=== PATIENT | female | born 1935 | race Caucasian/White ===

== ENCOUNTER 2018-11-29 06:40 | Inpatient (IN) | payer MEDICARE, SELFPAY ==
[2018-11-22 11:17] VITALS: BP 121/61; PULSE 64; RESP 17; TEMP 36.5; O2SAT 100; BMI 18.1
[2018-11-22 12:51] LABS: Hematocrit 36.9 % (37-47); Hemoglobin 11.3 g/dL (12.0-15.0); Mean Corp Hgb Conc 30.6 g/dL (32-36); Mean Corpuscular Hgb 28.6 pg (27.0-32.0); Mean Corpuscular Volume 93.4 fL (81-99); Platelet Count 373 K/mm3 (150-450); RBC Distribution Width CV 12.9 % (11.6-14.6); RBC Distribution Width SD 44.3 fl (35.1-43.9); Red Blood Count 3.95 M/mm3 (4.2-5.4); White Blood Count 5.7 K/mm3 (4.4-11.0)
[2018-11-22 12:58] LABS: Prothrombin Time (Protime)PT. 13.2 SECONDS (11.7-14.9)
[2018-11-22 12:59] LABS: Partial Thromboplast Time 29.4 Seconds (24.1-36.2)
[2018-11-22 13:21] LABS: AST(SGOT) 17 U/L (15-37); Alanine Aminotransfer ALT/SGPT 21 U/L (13-56); Albumin, Serum 3.6 g/dL (3.2-5.0); Alkaline Phosphatase 134 U/L (45-117); Anion Gap 4 (5-15); BUN 11 mg/dL (7-18); BUN/Creat Ratio 18.8 RATIO (10-20); Calcium,Total 9.3 mg/dL (8.5-10.1); Chloride 108 mmol/L (98-107); Creatinine, Serum 0.59 mg/dL (0.55-1.02); EST Glomerular Filtration Rate 105 mL/min (>60); Est Glom Filt Rate - Afr Amer 127 mL/min (>60); Estimated Creatinine Clearance 31.38 ml/min; Glucose 81 mg/dL (74-106); Potassium 3.7 mmol/L (3.5-5.1); Protein, Total 7.6 g/dL (6.4-8.2); Sodium Level 139 mmol/L (136-145)
[2018-11-23 09:21] LABS: Absolute Lymphocyte Count 1.74 X10^3/uL (0.83-4.51); Absolute Neutrophil Count 3.4 X10^3/uL (2.0-7.7); Basophil# 0.05 X10^3/uL; Basophil% 0.9 % (0-1); Eosinophil# 0.07 X10^3/uL; Eosinophils% 1.2 % (0-5); Lymphocyte # 1.74 X10^3/ul (4.0); Monocyte# 0.55 X10^3/uL; Monocyte% 9.5 % (0-10); NRBC Flagged by Analyzer 0 % (0-5); Neutrophil # 3.38 X10^3/uL (2.7-7.7); Neutrophil % 58.2 % (47-70)
[2018-11-29] VITALS (11 sets, daily range): BP systolic 104–122; BP diastolic 54–68; PULSE 65–77; RESP 16–116; TEMP 36.1–36.9; O2SAT 92–100; BMI 17.5; BMI 20.1
--- NOTE | 2018-11-29 06:58 | RAD_ITS ---
STUDY: X-RAY - PELVIS AND RIGHT HIP REASON FOR EXAM: Female, 82 years old. Right hip replacement. TECHNIQUE: 2 views of the pelvis and hip. COMPARISON: Comparison is made with prior examination done earlier today. FINDINGS: The patient is status post right total hip replacement. There is good alignment. Postoperative soft tissue changes. RAD/Hip Min 2 Views (Portable) IMPRESSION: Status post right total hip replacement. There is good alignment. Soft tissue changes. Electronically Signed: Asher Meng, at 14:28 EDT , Service support ,
[2018-11-29] MEDS: Magnesium Sulfate 4gm/100mL 4 GM/100 ML IV.SOLN. IV (07:31)
[2018-11-29] MEDS: Acetaminophen 500 MG Tablet 1000 MG PO ×3 (07:32→21:47)
[2018-11-29] MEDS: Celecoxib 200 MG Capsule 400 MG PO (07:32)
[2018-11-29] MEDS: Gabapentin 600 MG Tablet PO (07:32)
[2018-11-29] MEDS: Lactated Ringers 1,000 ML 90 ML IV ×2 (07:34→12:16)
[2018-11-29] MEDS: Scopolamine 1mg/72hr Patch 1 PATCH TD (07:55)
[2018-11-29] MEDS: Lactated Ringers 1,000 ML 999 ML IV (07:55)
[2018-11-29 08:45] LABS: Bedside Glucose 87 mg/dL (70-110)
[2018-11-29] MEDS: Cefazolin 2 GM in 0.9% Normal Saline 100 ML IV (08:52)
--- NOTE | 2018-11-29 09:15 | HIP_PTH ---
PATIENT: MANFRED HILL LOC: MS3 U#:[id number] AGE/SX: 82/F ROOM: NM313 RE11/29/[address]: Dr. Efraín Pollard MD : [id number] BED: 1 DIS: 11/30/2018 SPEC #: [id number] RECD: 11/29/18 11:55 STATUS: RIANNA GOTTI #: [id number] JONATHAN: 11/29/18 09:[address]: Efraín Pollard DEPT: SURGICAL PATHOLOGY RECD BY: Dany Woods ENTERED: 11/29/18 12:04 SP TYPE: TOTAL HIP OTHR DR: Dr. Jennifer Klein MD Tissues: Hip, NOS Procedures: Decalcification bone/plaque Surgery Specimen Level IV HEADER OPERATION: Total hip anterior approach PRE-OP DIAGNOSIS: Idiopathic aseptic necrosis right femur TISSUE SUBMITTED: Femoral head MICROSCOPIC DIAGNOSIS Femoral head, excision: Consistent with changes of severe degenerative joint disease. AM:[place] 12/05/18 MICROSCOPIC DESCRIPTION Slides are reviewed. GROSS DESCRIPTION Received is one container labeled with the patient's name and designated femoral head. The specimen consists of a slightly deformed femoral head measuring 5 x 4.5 x 4 cm. The area of rubbery, circular defect measures 3.5 cm in dimension. The articular surface is focally eburnated and shows bone erosion. Also present in the specimen container are multiple irregular fragments of bone reamings aggregating to 6 x 3 x 1 cm. Character Artist sections are submitted in two cassettes after decalcification. / AM:[place] 11/29/18 TC:5 CPT: 46025, 55871
--- NOTE | 2018-11-29 09:25 | RAD_ITS ---
STUDY: X-RAY - PELVIS AND RIGHT HIP REASON FOR EXAM: Female, 82 years old. Right hip replacement. TECHNIQUE: 1 views of the pelvis and hip. COMPARISON: None. FINDINGS: The patient is status post right total hip replacement. There is good alignment. RAD/Hip 1 view with Pelvis IMPRESSION: Status post right total hip replacement. There is good alignment. Electronically Signed: Asher Meng, at 13:23 EDT , Service support ,
--- NOTE | 2018-11-29 10:13 | OP.PCM_ITS ---
Report of Operation Date of Procedure: 11/29/18 Pre-Operative Diagnosis: Right hip avascular necrosis Post-Operative Diagnosis: Right hip avascular necrosis Surgery/Procedure Performed:: Right direct anterior minimally invasive total hip replacement Description of Surgical Findings:: Stable hip, equal leg lengths, cemented stem. Gross visualization of the head upon removal did show subchondral fracturing in the femoral head embedded firmware engineer: Ant England Type of Anesthesia:: Spinal Anesthesiologist: Jasiel Méndez Special Medications: 2 g Ancef, 1 g TXA at incision, 1 g TXA closure, 10 mg Decadron, joint cocktail (5 mg Duramorph, 30 mL of 0.5% Ropivicaine, 1000 units of epinephrine, 30 mg of Toradol) Specimen's removed: Bony cuts, femoral head was sent to pathology Estimated Blood Loss (mL): 100 Fluids Replaced: 1200 mL crystalloid Description of Procedure: Components used: 1. [place] Joseph femoral stem size 37.5 mm, 2 2. Joseph trident 2 acetabular shell size 48 mm 3. [place] X3 polyethylene d 4. Joseph Biolox delta 36mm, -2.5mm femoral head Brief history operative indications: 82 yo F who failed conservative measures for their hip osteoarthritis. X-rays were consistent with osteoarthritis including joint space narrowing, osteophyte formation and subchondral cysts. Total hip replacement was discussed with the patient with risks and benefits including but not limited to blood loss, DVTs, PEs, neurovascular damage, dislocation, general risks of anesthesia including loss of life. Patient demonstrated an understanding medical clearance is obtained the patient was consented for surgery. Procedure: On the date of procedure the patient's R hip was marked in the preoperative area. Patient was then taken back to the operating room where anesthesia assumed control of the C-spine and airway and administered anesthetic. Patient was transferred to the operating table and placed in the supine position. The hips were placed at the break of the bed and a sacral bump was placed. The R lower extremity was then prepped out in a sterile fashion using chlorhexidine while the surgeon scrubbed. The PA was vital in the positioning of the patient. Upon reentering the room the R lower extremity was draped in the standard orthopedic fashion and the incision was marked. A timeout was called and everyone agreed upon the side, the site, the procedure be performed, antibody given, and patient's identity. At this time incision was made through skin, subcutaneous tissue, and fat down to fascia. The fascia was then incised and the TFL was retracted laterally. A retractor was placed on the lateral border of the femoral neck. Attention was directed to the inferior portion of the approach and all crossing vessels were identified and appropriately coagulated. A retractor was then placed on the medial portion of the femoral neck. The anterior capsule was then cleared of all soft tissue and then H shaped capsulotomy was made. The retractors were then placed inside the capsule. The femoral neck was identified and a cleanup cut was made. At this time a power corkscrew was used to remove the femoral head. Attention was then turned toward the acetabulum where the soft tissues were appropriately retracted and the acetabulum was sequentially reamed to 48 mm. A 48 mm cup was then selected and impacted into place. Acetabular liner was impacted into place and locking mechanism was verified. The position of the acetabular cup was then verified under live fluoroscopy. Attention was then turned to the femur. Soft tissue releases on the medial and lateral femoral neck were appropriately done, the leg was externally rotated and lateralized. A Faith retractor was placed medially and proximally to the greater trochanter this allowed appropriate visualization and exposure of the femoral canal. Rongeour was then used to remove excess lateral bone. A canal finder and entry broach were used to open the proximal canal. Once we verified we were down the femoral canal we subsequently broached up to a size 2/37.5MM femur. The appropriate neck was placed in the previously selected head was trialed with a -2.5 mm neck. Traction was pulled and the hip was reduced with internal rotation. Once it was appropriately reduced and stability was checked. There was minimal shuck, equal leg lengths and appropriate stability with hyperextension and external rotation as well as with 90? flexion and internal rotation. Fluoroscopy was then also used to verify the position of the components and leg lengths using the contralateral side for comparison. The trial components were then dislocated the proximal femur was again exposed and the components were removed from the wound. The final stem was verified and opened. The wound was copiously irrigated out with normal saline. Proximal bone was prepped and a cement restrictor was placed. After the cement was mixed the canal was pressurized with cement and the stem was put into place. After the cement was allowed to cure we again trialed the hip and a -2.5 mm 36 mm head remained appropriate for stability and leg lengths. This was verified on live fluoroscopy as well as the stem position. Femoral head trial was again dislocated. Number head trial was removed final component was opened. Trunnion was cleaned and dried. The acetabulum was checked for any residual debris. The final components were placed and impacted. Traction and internal rotation were again used to reduce the hip. After adequate reduction the hip remained stable with appropriate leg lengths. The final components were once again checked with live fluoroscopy and were found to be satisfactory. The wound was then copiously irrigated with normal saline once more, and hemostasis was obtained. Closure was then done using #1 Vicryl runner to close the fascia. A 2-0 vicryl interuppted sutures were used to close the subcutaneous skin. A 3-0 Monocryl and Steri-Strips were used for final skin closure. A Silverlon dressing was placed. Patient was awakened by anesthesia and transferred to the [place]. Patient was then transferred to the PACU for recovery. Postoperative plan: Patient will get 24 hours postop antibiotics. Patient will get in-house physical therapy and will be weight-bear as tolerated. Patient will follow up in office in 2 weeks for a wound check and x-rays. Grafts/Implants Used: Joseph [place] stem - Complications No intraoperative complications - Admit VTE Documentation VTE Present on Admission: No VTE Mechan Device Prophylaxis: SCD's, Thigh High FLETCHER Hose VTE Pharm Prophylaxis ordered?: Yes
--- NOTE | 2018-11-29 11:06 | EKG12_ITS ---
Test Reason : Blood Pressure : / mmHG Vent. Rate : 074 BPM Atrial Rate : 074 BPM P-R Int : 172 ms QRS Dur : 154 ms QT Int : 468 ms P-R-T Axes : 074 -42 031 degrees QTc Int : 519 ms Normal sinus rhythm Left axis deviation Right bundle branch block Abnormal ECG Confirmed by SRIRAM MARTINEZ, CHARLEEN ([id number]), loan expeditor AMMON BERNABE ([id number]) on 12/04/2018 11:50:42 AM Referred By: Efraín Pollard Confirmed By:CHARLEEN BHATIA MD
[2018-11-29] MEDS: Ensure Surgery 237 ML LIQUID PO ×2 (14:10→16:49)
[2018-11-29] MEDS: Famotidine 20 MG Tablet PO (14:10)
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
[2018-11-29] MEDS: Prenatal Vits Tablet 1 TABLET PO (16:41)
[2018-11-29] MEDS: Aspirin 81 MG TAB.CHEW PO (16:42)
[2018-11-29] MEDS: Cefazolin 1 GM/50 ML BAG IV (16:48)
[2018-11-29] MEDS: traMADol 50 MG Tablet PO (19:52)
[2018-11-29] MEDS: Mirtazapine 15 MG Tablet 7.5 MG PO (21:47)
[2018-11-30] MEDS: Cefazolin 1 GM/50 ML BAG IV (01:10)
[2018-11-30] MEDS: Lactated Ringers 1,000 ML 90 ML IV (01:10)
[2018-11-30] MEDS: Morphine 2 MG/ML Syringe IV (01:15)
[2018-11-30 02:50] VITALS: BP 117/68; PULSE 64; RESP 18; TEMP 36.9; O2SAT 93
[2018-11-30 05:43] LABS: Hematocrit 27.2 % (37-47); Hemoglobin 8.7 g/dL (12.0-15.0); Mean Corpuscular Hgb 29.4 pg (27.0-32.0); Mean Corpuscular Volume 91.9 fL (81-99); Mean Platelet Vol. 8.9 fl (6.2-12.0); Platelet Count 273 K/mm3 (150-450); RBC Distribution Width CV 12.7 % (11.6-14.6); RBC Distribution Width SD 42.4 fl (35.1-43.9); Red Blood Count 2.96 M/mm3 (4.2-5.4); White Blood Count 11.7 K/mm3 (4.4-11.0)
[2018-11-30] MEDS: Acetaminophen 500 MG Tablet 1000 MG PO ×2 (05:58→14:40)
[2018-11-30 06:06] LABS: Anion Gap 6 (5-15); BUN 20 mg/dL (7-18); BUN/Creat Ratio 33.3 RATIO (10-20); Chloride 110 mmol/L (98-107); EST Glomerular Filtration Rate 102 mL/min (>60); Est Glom Filt Rate - Afr Amer 123 mL/min (>60); Estimated Creatinine Clearance 34.81 ml/min; Glucose 124 mg/dL (74-106); Potassium 3.5 mmol/L (3.5-5.1); Sodium Level 144 mmol/L (136-145)
[2018-11-30 08:50] VITALS: BP 121/67; PULSE 96; RESP 18; TEMP 36.6; O2SAT 93
[2018-11-30] MEDS: Cyanocobalamin 500 MCG Tablet 1000 MCG PO (08:58)
[2018-11-30] MEDS: Calcium Carb/Vitamin D 1 TABLET Tablet PO (08:58)
[2018-11-30] MEDS: Aspirin 81 MG TAB.CHEW PO (08:58)
[2018-11-30] MEDS: Famotidine 20 MG Tablet PO (08:59)
[2018-11-30] MEDS: Senna/Docusate Sodium 1 Tablet 2 TABLET PO (08:59)
[2018-11-30] MEDS: traMADol 50 MG Tablet PO ×2 (09:03→14:57)
[2018-11-30] MEDS: Ensure Surgery 237 ML LIQUID PO ×2 (09:08→12:07)
--- NOTE | 2018-11-30 10:47 | PCM.PN.HOSP ---
Subjective: Patient was seen and examined. She underwent right direct anterior minimally invasive total hip replacement. Her pain is fairly controlled. Denied any dizziness or shortness of breath. Vitals/I&O's: Vital Signs Temp Pulse Resp BP Pulse Ox 97.9 F 96 18 121/67 H 93 11/30/18 08:50 11/30/18 08:50 11/30/18 08:50 11/30/18 08:50 11/30/18 08:50 Oxygen Flow Rate (L/min) 6 Oxygen Delivery Method Room Air Weight: 49.98 kg Body Mass Index (BMI) 20.1 Intake and Output for Last 24 Hours 11/28/18 11/29/18 11/30/18 23:59 23:59 23:59 Intake Total 2903 / 3403 1050 / 1050 Balance 2903 / 3403 1050 / 1050 General: Alert, Oriented x3, Cooperative, No apparent distress HEENT: Atraumatic, PERRLA, EOMI, Normocephalic Oral: Moist Mucosa Neck: Supple Lungs: Clear to auscultation, Normal air movement Cardiovascular: Regular rate, Regular Rhythm, Normal S1, Normal S2, No murmurs Abdomen: Bowel Sounds Present, Soft, Non Tender, Non-Distended, No Hepato-splenomegaly Extremities: No edema Skin: No rashes, No breakdown Musculoskeletal: No Tenderness to Palpation of Joints or Extremities Lymphatic: No Cervical, Supraclavicular, or Inguinal Adenopathy Neurological: Cranial nerves II-XII grossly intact, Neuro grossly intact Psych/Mental Status: Normal Affect, Appropriate Laboratory Results 11/30/18 05:20: WBC 11.7 H, RBC 2.96 L, Hgb 8.7 L, Hct 27.2 L, MCV 91.9, MCH 29.4, MCHC 32.0, RDW Std Deviation 42.4, RDW Coeff of Devyn 12.7, Plt Count 273, MPV 8.9 11/30/18 05:20: Sodium 144, Potassium 3.5, Chloride 110 H, Carbon Dioxide 28.0, Anion Gap 6, BUN 20 H, Creatinine 0.60, Estim Creat Clear Calc 34.81, Est GFR (MDRD) Af Amer 123, Est GFR (MDRD) Non-Af 102, BUN/Creatinine Ratio 33.3 H, Glucose 124 H, Calcium 8.0 L Current Medications Acetaminophen (Tylenol) 1,000 mg PO Q8 [facility] Last Admin: 11/30/18 05:58 Dose: 1,000 mg Documented by: Aspir[facility] ([facility], Baby) [facility] Last Admin: 11/30/18 08:58 Dose: 81 mg Documented by: Calcium/Vitamin D (Os-Edu 500mg + D) [facility] tablet [facility] Last Admin: 11/30/18 08:58 Dose: 1 tablet Documented by: Cholecalciferol (Vitamin D) 1,000 unit [facility] Last Admin: 11/30/18 08:59 Dose: 1,000 unit Documented by: Cyanocobalamin (Vitamin B12) 1,000 mcg [facility] Last Admin: 11/30/18 08:58 Dose: 1,000 mcg Documented by: Enteral Nutritional Formula (Ensure Surgery) 237 ml PO TIDCM [facility] Last Admin: 11/30/18 09:08 Dose: 237 ml Documented by: Famotidine (Pepcid) 20 mg PO DAILY [facility] Last Admin: 11/30/18 08:59 Dose: 20 mg Documented by: Lactated Ringer's () 1,000 mls @ 90 mls/hr IV .Q11H7M [facility] Last Admin: 11/30/18 01:10 Dose: 90 mls/hr Documented by: Insulin Human Lispro (Humalog Powerpen (Bkc)) 1 - 6 unit SC Q4H PRN PRN; Protocol PRN Reason: BG>/= 180, SEE PROTOCOL Mirtazapine (Remeron) 7.5 mg PO QHS [facility] Last Admin: 11/29/18 21:47 Dose: 7.5 mg Documented by: Morphine Sulfate () 2 - 4 mg IV Q2H PRN PRN PRN Reason: MOD-SEVERE PAIN (4-10/10) Last Admin: 11/30/18 01:15 Dose: 2 mg Documented by: Ondansetron HCl (Zofran) 4 mg IV Q8H PRN PRN PRN Reason: NAUSEA Multivit/Folic Acid/Iron (Prenatabs Fa) 1 tablet PO DAILY@1200 [facility] Last Admin: 11/29/18 16:41 Dose: 1 tablet Documented by: Promethazine HCl (Phenergan) 12.5 mg IM Q6H PRN PRN; Protocol PRN Reason: NAUSEA/VOMITING Senna/Docusate Sodium (Senokot-S, Tatiana-Colace) 2 tablet PO BID [facility] Last Admin: 11/30/18 08:59 Dose: 2 tablet Documented by: Sodium Chloride () 10 - 40 ml IV UD PRN PRN Reason: SALINE FLUSH Tramadol HCl (Ultram) 50 - 100 mg PO Q6H PRN PRN PRN Reason: MOD-SEVERE PAIN (4-10/10) Last Admin: 11/30/18 09:03 Dose: 50 mg Documented by: Medical Necessity - Tobacco Use Smoking Status: Former smoker - Patient quit cigarette tobacco usage in the 1970s but notes that she smoked very minimal. Tobacco Use: Non-smoker Assessment/Plan 82-year-old female with past medical history of severe protein calorie malnutrition, osteoarthritis, who comes in for elective right anterior total hip replacement for right hip avascular necrosis. 1. Postop day #1 status post right direct anterior minimal total hip replacement, pain is controlled Patient is being discharged 2. Severe protein calorie malnutrition, BMI 20.2, on nutritional supplements 3. Possible anxiety/depression, started on Remeron 4. GERD, on famotidine 5. DVT PPx- aspirin 81mg BID Okay with patient being medically discharged. She will be followed up with home health team Code Visit Inpatient E&M: [id number] Subs Hosp L2
--- NOTE | 2018-11-30 10:48 | PCM.PN.ORT ---
Patient Problems: Active and Suspected Problems Anxiety and depression (Suspected) Subjective: The patient was sitting in bedside chair upon examination. Patient denies any chest pain, shortness of breath, dizziness, lightheadedness, nausea or vomiting, or calf pain. Pain is controlled on medications. No adverse overnight events. Patient has tolerated physical therapy very well. Her pain is controlled. She does complain of some anterior thigh pain but this is normal for the procedure she underwent. Medicine has been consulted as well as consult for dietitian. Patient was started on Remeron. Plan will be for discharge home with home health physical therapy Objective: Vital signs stable and afebrile. Patient is able to plantarflex and dorsiflex actively. Sensation is intact to light touch to saphenous, sural, superficial and deep peroneal, and tibial distribution. Dressing overall is clean dry and intact with minimal discharge over the lateral aspect of the dressing. Negative Homans bilaterally, negative signs and symptoms of DVT. - Physical Exam General: Alert, Oriented x3, Cooperative, No apparent distress Vital Signs Temp Pulse Resp BP Pulse Ox 97.9 F 96 18 121/67 H 93 11/30/18 08:50 11/30/18 08:50 11/30/18 08:50 11/30/18 08:50 11/30/18 08:50 Oxygen Flow Rate (L/min) 6 Oxygen Delivery Method Room Air Weight: 49.98 kg Body Mass Index (BMI) 20.1 Intake and Output for Last 24 Hours 11/28/18 11/29/18 11/30/18 23:59 23:59 23:59 Intake Total 2903 / 3403 1050 / 1050 Balance 2903 / 3403 1050 / 1050 Laboratory Tests Past 24 Hrs 11/30/18 11/30/18 05:20 05:20 WBC 11.7 H RBC 2.96 L Hgb 8.7 L Hct 27.2 L MCV 91.9 MCH 29.4 MCHC 32.0 RDW Std Deviation 42.4 RDW Coeff of Devyn 12.7 Plt Count 273 MPV 8.9 Sodium 144 Potassium 3.5 Chloride 110 H Carbon Dioxide 28.0 Anion Gap 6 BUN 20 H Creatinine 0.60 Estim Creat Clear Calc 34.81 Est GFR (MDRD) Af Amer 123 Est GFR (MDRD) Non-Af 102 BUN/Creatinine Ratio 33.3 H Glucose 124 H Calcium 8.0 L Medical Necessity - Tobacco Use Smoking Status: Former smoker - Patient quit cigarette tobacco usage in the 1970s but notes that she smoked very minimal. Tobacco Use: Non-smoker Assessment/Plan 1. S/P direct anterior right total hip arthroplasty POD #1 2. Continue Pain Medications: Tylenol and tramadol 3. DVT Prophylaxis: Aspirin 81 mg twice daily for DVT prophylaxis for 4 weeks 4. PT/OT: Weightbearing as tolerated, patient has tolerated physical therapy in the hospital very well 5. H & H: 8.7/27.2, asymptomatic 6. Encouraged Incentive Spirometry 7. Continue postoperative medical management per medicine: Case was discussed with hospitalist, plan will be for Remeron for 1 month due to her malnutrition. Dietitian is also consulted, appreciate input. 8. Disposition: Orthopedically stable, plan will be for discharge home today with home health physical therapy as long as medically stable. If medicine is okay for discharge today, patient can be discharged per orthopedic standpoint. Patient will need to schedule follow-up with primary care physician postoperatively. Patient will follow-up per postop instructions.
--- NOTE | 2018-11-30 11:00 | CASEMGMT ---
Addendum entered by Rosalind Ahmadi 11/30/18 14:24: Dietary stated miller for a case (24 ct) of Ensure Surgery Liquid is $40.80 and can be purchased through the cafeteria. Pt and family made aware Enteral supply companies are not able to provide Ensure Surgery Liquid or be billed through insurance at this time and made aware of cost through [facility] cafeteria. They are agreeable to this miller and purchasing through [facility] cafeteria. Daughter and left at this time to buy now. Addendum entered by Rosalind Ahmadi 11/30/18 13:55: Call placed to [facility]. They state they do not have a contract with [facility] in [place]. Addendum entered by Rosalind Ahmadi 11/30/18 13:44: received from [facility] stating they are not able to accept oral enteral therapy at this time. Original Note: RN CM PBX TEACHER CM to room to meet with patient for initial transition planning/care coordination assessment. CHANTELL ROSS introduced self and role at [facility]. Pt voices understanding and consents to assessment at this time. Pt resting in bed in no distress at this time. at bedside. DaughterJoi came in to room during assessment as well. Pt is A/O at this time and answers all questions appropriately. Care providers, pharmacy, and demographics verified/updated at this time. PCP: Dr Jennifer Klein Specialists: Dr Pollard Preferred [facility]acy: [facility] Insurance: [facility] Prescription Benefit: Yes Living Will/HPOA: [facility] does not have LW or HCPOA .Would like to talk to IVONNE to complete paperwork. IVONNE, Isabel, made aware. Given info on AD and she was made aware if SW is not able to see her today before she is discharged that she can utilize [facility] social work for advanced directive completion as an out-pt. Given Nutrition Program Instructor Rac card with information and contact number. Pt expresses understanding. LNOK: Living Arrangements: Lives with in a one-story home w/basement where laundry is. does the laundry and can assist pt w/ADL's and home mgmt tasks while pt is recovering. Transportation: Pt states she did drive some prior to surgery. drives and states no transportation concerns at this time. DME: [facility] has the following DME: cane, walker. States wants to get a shower chair and nick setter. They were made aware pt's insurance does not cover for these. states they are planning on getting at a local drug store or [employer]. HHC/SNF: No history of either. Pt is interested in HHC. Given list of HHC agencies in [facility] that are in-network with [facility]. Pt and 's 1st choice was [facility] and 2nd choice was [facility]. Call placed to [facility] and spoke to Dinorah. She states they are not able to accept pt at this time. Call placed to [facility] and spoke to Saadia. She states they are able to accept pt and start of care will be by Saturday 12/02. Pt, , and daughter all made aware. Referral packet has been faxed to [facility]. Pt has been given script for Ensure Liquid. Pt and family have no preference of supply company and agreeable to CS. Script and referral info faxed to [facility] at this time. Call placed to [facility] and they confirmed they received the script and information. Awaiting call back for insurance approval. [facility]: PH: Fax: Pt wishes to return home and states has no concerns with going home at time of discharge. CM to follow for discharge planning/needs. Pt and voice no further concerns/needs at this time. Advised pt and family to ask for CM if any further questions/concerns/needs arise. Voices understanding. PLAN: Home w/HHC, spousal support, and discharge plans in place. Charisse DE LA FUENTEN RN CM
--- NOTE | 2018-11-30 11:00 | DCINST_ITS ---
Discharge Diet: No Restrictions Discharge Activity: May Not Drive - while taking narcotic pain medications. May shower in (days): 1 - only if incision is dry and without drainage. Do NOT soak/submerge in tub/pool/chavez/stream/hot tub. Ice area for (Minutes): 20 - Every 1-2 hours while awake Weight Bearing Status: Weight bearing as tolerated Elevate: Operative Extremity Additional Activity Instructions:: Wear elastic stockings for 2 weeks. DO NOT use alcohol with narcotic pain medication. DO NOT make important decisions while taking narcotic medication. If you have problems with taking your medication (rash, itching, nausea, etc.) call the office at once. Call your doctor if your incision/area has: Increased Pain/ Swelling, Increased Redness, Foul Smelling Discharge Call your doctor if you observe: Fever of 101 or Higher Remove Dressing in (days):: 4 - Okay to remove dressing on December 04, 2018 Allergies/Adverse Reactions: Allergies bisacodyl [From Fleet Prep Kit #1] Allergy (Verified 11/22/18 11:10) Other PT CANT REMEMBER REACTION ciprofloxacin [From Cipro] Allergy (Verified 11/22/18 11:10) Rash ciprofloxacin HCl [From Cipro] Allergy (Verified 11/22/18 11:10) Rash estradiol Allergy (Verified 11/22/18 11:10) Other PT CANT REMEMBER REACTION estrogens, conjugated [From Premarin] Allergy (Verified 11/22/18 11:10) Other PT CANT REMEMBER REACTION hydroxyzine Allergy (Verified 11/22/18 11:10) Other PT CANT REMEMBER REACTION levonorgestrel [From Climara Pro] Allergy (Verified 11/22/18 11:10) Other NSAIDS (Non-Steroidal Anti-Inflamma Allergy (Verified 11/22/18 11:10) Other PT CANT REMEMBER REACTION Penicillins Allergy (Verified 11/22/18 11:10) Swelling procaine HCl [From Novocain] Allergy (Verified 11/22/18 11:10) Other PT CANT REMEMBER REACTION sodium phosphate,monobasic-dibasic [From Fleet Prep Kit #1] Allergy (Verified 11/22/18 11:10) Other PT CANT REMEMBER REACTION Sulfa (Sulfonamide Antibiotics) Allergy (Verified 11/22/18 11:10) Swelling Medications to take at Discharge Calcium Carbonate/Vitamin D3 [Caltrate 600 Plus D3 Tablet] 1 ea PO DAILY 11/22/18 Cholecalciferol (VIT D3) [Vitamin D3] 1,000 unit PO DAILY 11/22/18 Cyanocobalamin (Vitamin B-12) [Vitamin B-12] 1,000 mcg PO DAILY 11/22/18 Pnv No.95/Ferrous Fum/Folic AC [ Caplet] 1 ea PO DAILY 11/22/18 Acetaminophen [Tylenol] 1,000 mg PO Q8 #100 tab 11/30/18 Aspirin [Aspirin, Baby] 81 mg PO BIDCM tab.chew 11/30/18 Ensure Surgery 237 ml PO TIDCM liquid 11/30/18 Mirtazapine [Remeron] 7.5 mg PO QHS #30 tab 11/30/18 Senna/Docusate Sodium [Senokot-S] 2 tab PO BID #20 tab 11/30/18 traMADol [Ultram] 50 - 100 mg PO Q6H PRN PRN 4 Days #32 tab 11/30/18 The following prescriptions were given: Mirtazapine [Remeron] 7.5 mg PO QHS #30 tab Transmission Status: [facility] to [facility] Senna/Docusate Sodium [Senokot-S] 2 tab PO BID #20 tab Transmission Status: Pending to [facility] Acetaminophen [Tylenol] 1,000 mg PO Q8 #100 tab Transmission Status: Pending to [facility] traMADol [Ultram] 50 - 100 mg PO Q6H PRN PRN 4 Days #32 tab PRN Reason: Mod-Severe Pain (4-12/21) Transmission Status: Received by [facility] Primary Care Physician: Jennifer Klein MD [Primary Care Provider] - Please follow up with your Primary Care Physician in: follow up in 2 weeks with PCP Test Results: Test results from this visit will be discussed in further detail at your follow- up appointment, if applicable. Please Follow Up With: Rigo Steiner PA-C When: 12/14/18 @ 2:00 pm
[2018-11-30] MEDS: Prenatal Vits Tablet 1 TABLET PO (12:07)
[2018-11-30 15:08] VITALS: BP 113/64; PULSE 77; RESP 18; TEMP 37.2; O2SAT 98
== END 2018-11-30 15:15 | disposition home health service (06) | DRG 469 ==
LOC: ACINP 06:44 → MS3 08:54
PROVIDERS: Anesthesiology; Admitting Provider Specialist; Family Provider Internal Medicine; PCP Internal Medicine; Referring Provider Specialist; Visit Provider Specialist
PROC: 0SR9049 Replacement of Right Hip Joint with Ceramic on Polyethylene Synthetic Substitute, Cemented, Open Approach (ICD-10-PCS; CPT 27284; principal; 2018-11-29 08:50)
DX: M87.051 Idiopathic aseptic necrosis of right femur (principal); E43 Unspecified severe protein-calorie malnutrition; M16.10 Unilateral primary osteoarthritis, unspecified hip; K21.9 Gastro-esophageal reflux disease without esophagitis; I10 Essential (primary) hypertension; R19.7 Diarrhea, unspecified; Z87.891 Personal history of nicotine dependence; M81.0 Age-related osteoporosis without current pathological fracture; K57.30 Diverticulosis of large intestine without perforation or abscess without bleeding; Z91.410 Personal history of adult physical and sexual abuse; Z96.641 Presence of right artificial hip joint; Z90.710 Acquired absence of both cervix and uterus; Z79.82 Long term (current) use of aspirin; F32.9 Major depressive disorder, single episode, unspecified; F41.9 Anxiety disorder, unspecified; Z68.20 Body mass index [BMI] 20.0-20.9, adult
CPT/HCPCS: 36415; 73501; 73502; 76000; 80048; 80076; 82962; 85025; 85027; 85610; 85730; 87077; 87081; 88305; 88311; 93005; 97110; 97116; 97162; 97166; 97530; 97802; 99251; C1776; J7120; G0463

== ENCOUNTER 2019-09-07 15:36 | Emergency (ER) | payer MEDICARE, SELFPAY ==
[2018-11-29 12:07] VITALS: BMI 20.1
[2019-09-07 15:39] VITALS: BP 104/75; PULSE 76; RESP 18; TEMP 36.9; O2SAT 98; BMI 20.7
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
[2019-09-07 19:04] VITALS: BP 110/79; PULSE 88; RESP 16; O2SAT 99
== END 2019-09-07 19:05 | disposition home or self-care (01) ==
PROVIDERS: Emergency Provider Emergency Medicine; PCP Internal Medicine
DX: S16.1XXA Strain of muscle, fascia and tendon at neck level, initial encounter (principal); S20.219A Contusion of unspecified front wall of thorax, initial encounter; V43.52XA Car driver injured in collision with other type car in traffic accident, initial encounter; Y92.410 Unspecified street and highway as the place of occurrence of the external cause
CPT/HCPCS: 71111; 72040; 99284

== ENCOUNTER → 2019-11-14 16:35 | Outpatient (CLI) | payer MEDICARE, SELFPAY ==
[2019-11-14 15:41] VITALS: BMI 19.6
--- NOTE | 2019-11-14 16:46 | RAD_ITS ---
STUDY: X-RAY CHEST REASON FOR EXAM: Female, 83 years old. CAD TECHNIQUE: Frontal and lateral views COMPARISON: 09/20/2012 FINDINGS: The lungs are clear and expanded. There is no demonstrated pleural abnormality. Normal size heart. Normal mediastinum and marvin. Normal visualized pulmonary arteries. Normal visualized aortic arch and descending thoracic aorta. Normal visualized thoracic spine. Probable wedge compression of L1. Normal visualized ribs, clavicles, and shoulders. There is no demonstrated abnormality of the visualized soft tissue structures of the upper abdomen. RAD/Chest PA and Lateral IMPRESSION: No acute pulmonary pathology of the chest. Mild wedge compression of probable L1. Electronically Signed: Darren Robledo DO at 18:15 EDT Tel [phone], Service support ,
[2019-11-14 17:22] LABS: Anion Gap 4 (5-15); BUN 18 mg/dL (7-18); BUN/Creat Ratio 30.6 RATIO (10-20); Calcium,Total 9.5 mg/dL (8.5-10.1); Chloride 109 mmol/L (98-107); Creatinine, Serum 0.59 mg/dL (0.55-1.02); EST Glomerular Filtration Rate 104 mL/min (>60); Est Glom Filt Rate - Afr Amer 126 mL/min (>60); Glucose 87 mg/dL (74-106); Potassium 3.8 mmol/L (3.5-5.1); Sodium Level 141 mmol/L (136-145)
[2019-11-14 17:24] LABS: Absolute Lymphocyte Count 2.39 X10^3/uL (0.83-4.51); Absolute Neutrophil Count 4.2 X10^3/uL (2.0-7.7); Basophil# 0.04 X10^3/uL; Basophil% 0.5 % (0-1); Eosinophil# 0.07 X10^3/uL; Eosinophils% 0.9 % (0-5); Hematocrit 39.3 % (37-47); Hemoglobin 12.3 g/dL (12.0-15.0); Lymphocyte # 2.39 X10^3/ul (4.0); Lymphocyte % 32.3 % (19-41); Mean Corp Hgb Conc 31.3 g/dL (32-36); Mean Corpuscular Hgb 29.3 pg (27.0-32.0); Mean Corpuscular Volume 93.6 fL (81-99); Mean Platelet Vol. 9.1 fl (6.2-12.0); Monocyte# 0.67 X10^3/uL; Monocyte% 9.1 % (0-10); NRBC Flagged by Analyzer 0 % (0-5); Neutrophil % 56.9 % (47-70); Platelet Count 400 K/mm3 (150-450); RBC Distribution Width CV 13.9 % (11.6-14.6); RBC Distribution Width SD 47.1 fl (35.1-43.9); White Blood Count 7.4 K/mm3 (4.4-11.0)
== END ==
PROVIDERS: PCP Internal Medicine; Referring Provider Internal Medicine Cardiovascular Disease; Visit Provider Internal Medicine Cardiovascular Disease
DX: I20.8 Other forms of angina pectoris (principal)
CPT/HCPCS: 36415; 71046; 80048; 85025

== ENCOUNTER 2019-11-16 07:35 | Day surgery (SDC) | payer MEDICARE, SELFPAY ==
[2019-11-14 15:41] VITALS: BMI 19.6
[2019-11-15 08:19] VITALS: BMI 19.6
--- NOTE | 2019-11-16 10:06 | CL.D_ITS ---
Patient Name: MANFRED HILL Study Date: 11/16/2019 Performing: Tom Lerma MD Ht: 61.02 inches 155 cm : 1935 Wt: 103.62 lbs 47 kg Age: 83 Gender: female BSA: 1.43 PROCEDURE(S) PERFORMED AP37-HGM/COR/LV CLINICAL PROFILE AND INDICATIONS Indications: Suspected CAD Heart Failure: None Stress/Imaging Stress/Image Study Performed: No CAD Presentations: Unstable angina. CONCLUSIONS Normal coronary arteries Normal LV size, wall motion,and systolic function RECOMMENDATIONS Medical therapy DESCRIPTION OF PROCEDURE The patient arrived to the procedure lab. The risks and benefits of the procedure as well as a full d escription of our services here and current unavailability of surgical backup were fully explained to the patient and/or their significant other prior to the catheterization. The Timeout was completed, verifying the correct patient and procedure. The patient's procedural site was prepped and draped in the usual fashion. Local anesthetic was given subcutaneously to right radial region with Lidocaine 2% . Local anesthetic was given subcutaneously to right groin region with Lidocaine 2%. Using a modified Seldinger technique, arterial access was obtained via the right radial artery, a 6Fr sheath was inse rted., arterial access was obtained via the right femoral artery, a 5Fr sheath was inserted. Left Co ronary Artery selective angiography was performed in multiple views using a 5 Fr. JL4 catheter. Right Coronary Artery selective angiography was then performed in multiple views using a 5 Fr. 3DRC (Gm) catheter. Left Ventriculography was performed in BRYAN projection using a 5 Fr. Pigtail catheter. LV to AO pullback pressures were then recorded.The arterial sheath was pulled and a TR Ban d was applied for hemostasis. The arterial sheath was pulled and manual compression applied until hem ostasis is achieved. CORONARY ANGIOGRAPHY DOMINANCE: Right Dominant LEFT HEART ASSESSMENT Left Ventricular Ejection Fraction: by LV Gram 65 % Normal LV wall motion Normal Left Ventricular systolic function Normal Left Ventricular systolic function LEFT MAIN: Angiographically normal LEFT ANTERIOR DESCENDING ARTERY: Angiographically normal CIRCUMFLEX ARTERY: Angiographically normal RIGHT CORONARY ARTERY: Angiographically normal COMPLICATIONS No Complications PROCEDURE MEDICATIONS Fentanyl 50 mcg IV Versed 1 mg IV Oxygen: 2 L/min via nasal cannula SUMMARY OF HEMODYNAMIC DATA Time AIR REST ECG 08:22:57 AO 110/59 (80) SA 09:39:28 AO 121/62 (85) 09:47:45 LV 127/19, 22 09:54:18 LV 129/20, 22 09:54:24 LV 115/19, 22 09:55:05 LVp 118/21, 21 09:55:11 AOp 122/55 (83) 09:55:16 Signed By Tom Lerma MD On 11/16/2019 10:05:21 AM Tom Lerma MD
== END 2019-11-16 15:20 | disposition home or self-care (01) ==
PROVIDERS: PCP Internal Medicine; Referring Provider Internal Medicine Cardiovascular Disease; Visit Provider Internal Medicine Cardiovascular Disease
DX: I20.8 Other forms of angina pectoris (principal); E43 Unspecified severe protein-calorie malnutrition; E56.9 Vitamin deficiency, unspecified; K21.9 Gastro-esophageal reflux disease without esophagitis; R06.00 Dyspnea, unspecified; R07.9 Chest pain, unspecified
CPT/HCPCS: 93458; 99152; 99153; J7040; Q9967; C1769; C1894

== ENCOUNTER → 2019-12-05 12:59 | Outpatient (CLI) | payer MEDICARE, SELFPAY ==
[2019-11-29 17:21] VITALS: BMI 19.6
--- NOTE | 2019-12-05 13:00 | CT_ITS ---
STUDY: CT CHEST WITHOUT CONTRAST REASON FOR EXAM: Female, 84 years old. UPPER LOBE ABNORMALITY RADIATION DOSAGE (If Supplied By Facility): CTDIvol = ( 8.64 ) mGy, DLP = ( 269.19 ) mGycm TECHNIQUE: Transaxial imaging was performed without the administration of intravenous contrast material. Multiplanar coronal and sagittal images were reformatted. Individualized dose optimization techniques were used for this CT. COMPARISON: None. FINDINGS: There is a 0.7 cm x 1.9 cm x 3.3 cm spiculated nodule in the anterior medial portion of the right upper lobe without evidence of scarring. This may represent a focal area of scarring and bronchiectasis. Mild degree of emphysematous changes worse in the upper lobes. There is no demonstrated pleural abnormality. There are calcifications of the coronary arteries. There are multiple small lymph nodes within the mediastinum, which are normal in size and morphology most compatible with reactive lymph hyperplasia. Normal hilar regions. Normal unenhanced pulmonary arteries. There is atherosclerotic calcification of the aortic arch with tortuosity and elongation of the aortic arch and descending thoracic aorta. Approximately 50% loss of height of the lower dorsal vertebrae. Prior surgery in the region of the gastroesophageal junction. Status post cholecystectomy. CT/Chest without Contrast IMPRESSION: Spiculated nodule in the right upper lobe as described. This is suggestive of a scarring. A repeat CT scan in 12 months is recommended. Electronically Signed: Asher Meng, at 13:53 EDT , Service support ,
== END ==
LOC: CT 13:00
PROVIDERS: PCP Internal Medicine; Referring Provider Internal Medicine; Visit Provider Internal Medicine
DX: R91.8 Other nonspecific abnormal finding of lung field (principal)
CPT/HCPCS: 71250

== ENCOUNTER → 2020-02-28 14:30 | Outpatient (CLI) | payer MEDICARE, SELFPAY ==
[2020-02-20 13:57] VITALS: BMI 19.8
--- NOTE | 2020-02-28 14:32 | CT_ITS ---
STUDY: CT CHEST WITHOUT CONTRAST REASON FOR EXAM: Female, 84 years old. LUNG NODULE FOLLOW UP, COMPARE TO PRIOR CT CHEST RADIATION DOSAGE (If Supplied By Facility): CTDIvol = ( 5.45 ) mGy, DLP = ( 153.74 ) mGycm TECHNIQUE: Transaxial imaging was performed without the administration of intravenous contrast material. Multiplanar coronal and sagittal images were reformatted. Individualized dose optimization techniques were used for this CT. COMPARISON: Comparison is made with prior study dated 12/05/2019. FINDINGS: 3.3 mm hypodense nodule in the lower pole of the left lobe of the thyroid. Since prior study, the spiculated irregular nodular density in the medial aspect of the right upper lobe has increased in size. It presently measures 2.2 cm by 1.1 cm. Correlation with a PET scan is recommended for further evaluation. There is no demonstrated pleural abnormality. There are calcifications of the coronary arteries. There are multiple small lymph nodes within the mediastinum, which are normal in size and morphology most compatible with reactive lymph hyperplasia. Normal hilar regions. Normal unenhanced pulmonary arteries. There is atherosclerotic calcification of the aortic arch with tortuosity and elongation of the aortic arch and descending thoracic aorta. 50% loss of height of lower dorsal vertebrae. Status post cholecystectomy and there gastric surgery. CT/Chest without Contrast IMPRESSION: Increased size of the spiculated irregular nodule in the medial aspect of the right upper lobe as described. A PET scan is recommended for further evaluation. Electronically Signed: Asher Meng, at 15:09 EST , Service support ,
== END ==
PROVIDERS: PCP Internal Medicine; Visit Provider Internal Medicine
DX: R91.1 Solitary pulmonary nodule (principal); R91.8 Other nonspecific abnormal finding of lung field
CPT/HCPCS: 71250

== ENCOUNTER → 2020-03-04 14:23 | Outpatient (CLI) | payer MEDICARE, SELFPAY ==
[2020-02-20 13:57] VITALS: BMI 19.8
--- NOTE | 2020-03-04 14:27 | US_ITS ---
STUDY: THYROID ULTRASOUND REASON FOR EXAM: Female, 84 years old. NODULE SEEN ON CT 02/28/20 TECHNIQUE: Ultrasound evaluation of the thyroid was performed with real-time and static carey-scale imaging. COMPARISON: CT scan 02/28/2020. FINDINGS: RIGHT LOBE: The right lobe of the thyroid gland measures 4.3 x 1.3 x 1.1 cm. There is a homogeneous echotexture. 2 nodules are seen on the right. One is hypoechoic and measures 4 mm greatest dimension. The other is isoechoic and measures 5 mm greatest dimension. LEFT LOBE: The left lobe of the thyroid gland measures 4.1 x 1.8 x 1.3 cm. There is a homogeneous echotexture. There is an 8 mm possibly cystic nodule. ISTHMUS: The isthmus measures 3 mm . The regional lymph nodes are normal. US/Thyroid IMPRESSION: Subcentimeter nodules as above. In a patient this age, typical recommendations are for no further evaluation or follow-up. Electronically Signed: Iker Blanc MD at 16:33 EST , Service support ,
== END ==
PROVIDERS: PCP Internal Medicine; Referring Provider Internal Medicine; Visit Provider Internal Medicine
DX: E04.1 Nontoxic single thyroid nodule (principal)
CPT/HCPCS: 76536

== ENCOUNTER → 2020-03-25 13:01 | Outpatient (CLI) | payer MEDICARE, SELFPAY ==
[2020-02-20 13:57] VITALS: BMI 19.8
--- NOTE | 2020-03-27 13:00 | PFT ---
INTRODUCTION: The patient is an 84-year-old female that presents for pulmonary function studies secondary to a diagnosis of shortness of breath. Respiratory therapy reports good patient effort. Bronchodilators were used during testing. INTERPRETATION: Forced expiration spirometry demonstrates the presence of a mild large airways obstructive ventilatory defect. There was no significant response to aerosolized bronchodilators. Spirograms are of good quality and plateau normally. Body plethysmography was performed and reveals lung volumes to be within normal limits. Diffusing capacity by single breath CO is also within normal limits. IMPRESSION: Irreversible mild obstructive ventilatory impairment with preserved lung volumes and diffusing capacity.
== END ==
PROVIDERS: PCP Internal Medicine; Visit Provider Internal Medicine Critical Care Medicine
DX: R91.8 Other nonspecific abnormal finding of lung field (principal)
CPT/HCPCS: 94060; 94726; 94729

== ENCOUNTER → 2020-04-01 12:24 | Outpatient (CLI) | payer MEDICARE, SELFPAY ==
[2020-04-01 11:22] VITALS: BMI 19.6
== END ==
PROVIDERS: PCP Internal Medicine; Referring Provider Internal Medicine; Visit Provider Internal Medicine
DX: N39.0 Urinary tract infection, site not specified (principal)
CPT/HCPCS: 87086

== ENCOUNTER → 2020-04-01 13:38 | Outpatient (CLI) | payer MEDICARE, SELFPAY ==
[2020-04-01 11:22] VITALS: BMI 19.6
--- NOTE | 2020-04-01 14:00 | PET_ITS ---
EXAMINATION: FDG PET/CT INDICATIONS: An 84-year-old female with history of pulmonary nodularity. COMPARISON EXAMINATION: CT of the chest report dated 02/28/20 INDEX LESION SIZE SUV INTERPRETATION Right upper lung-right upper lobe 25.2-mm (frame 177) 1.5 Quantitative criteria for viable neoplasm are not fulfilled, sequential radiologic investigation recommended NON-INDEX LESION SIZE SUV INTERPRETATION Mediastinum, right thoracic perihilum 2.9 (max) Quantitative criteria for viable neoplasm are not fulfilled TECHNIQUE: Following the intravenous administration of 14.3 mCi of F-18 deoxyglucose via the right antecubital fossa, multiplanar image acquisitions of the neck, chest, abdomen and pelvis to level of mid thigh, obtained at one hour post radiopharmaceutical administration contemporaneously interpreted with the current CT of the neck, chest, abdomen and pelvis to level of mid thigh, dated 04/01/[address] of the chest report dated 02/28/20 reveal: SERUM GLUCOSE LEVEL: 81 mg/dl. HEIGHT: 62 inches. WEIGHT: 104 lbs. FINDINGS: 1. Mild increased FDG concentration is observed in the right upper medial lung-right upper lobe generating a calculated maximal standard uptake value of 1.5. The maximal axial diameter of the non-calcified partially cavitated density on review of CT of the chest dated 04/01/20 is 25.2-mm (transverse). 2. Enhanced tracer concentration is defined in the carinal level mediastinum, region of the aorticopulmonary window and right thoracic perihilum generating a calculated maximal standard uptake value of 2.9. 3. Normal physiologic distribution of the radiopharmaceutical is apparent in the hepatic (2.0) and splenic parenchyma, both renal units, bladder and visualized intestinal tract. The visualized portion of the cerebral cortex demonstrate symmetric and preserved glucose metabolism. Diffuse radiopharmaceutical concentration is noted in all four quadrants of the abdomen and pelvis. Prominent tracer concentration is observed in the left ventricular myocardium commensurate with the [place]. 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 Pertinent CT findings are as follows: CHEST: There are no additional parenchymal densities-nodules defined in the right and left hemithorax with discernible increased FDG uptake. There is atherosclerotic calcification defined in the thoracic aorta without evidence of dilatation-aneurysm formation. Bilateral axillary soft tissue with fatty hilus is non-glucose avid. ABDOMEN AND PELVIS: There is atherosclerotic calcification defined in the abdominal aorta without evidence of dilatation-aneurysm formation. Pelvic arterial calcification is observed. Postsurgical changes appear evident in the upper abdomen. Bilateral inguinal soft tissue densities with fatty hilus are non-glucose avid. The gallbladder is not clearly identified. Beam hardening artifact compromises evaluation of the lower pelvic CT acquisition. There appears to be evidence of postsurgical change in the right lower pelvic mesentery with the anastomotic site demonstrating no evidence of increased tracer uptake. Calcifications are observed in the bilateral lower hemipelvis. The uterus is not clearly defined. SKELETAL: Degenerative changes are noted in the cervical, thoracic and lumbar spine with no evidence of increased FDG uptake. There is diffuse demineralization identified throughout the axial skeletal structures. There is a compression deformity noted at the level of the twelfth thoracic vertebra without evidence of increased tracer uptake. PET/PET/CT Tumor Base -Thigh Init IMPRESSION: 1. NEGATIVE EXAMINATION. There is no definitive quantitative scintigraphic evidence of viable neoplasm. 2. Increased tracer concentration observed in the right upper medial lung-right upper lobe does not fulfill quantitative criteria for viable neoplasia. (Gong et al, Annals of Internal Medicine, 138:724, 2003). 3. Metabolic and/or anatomic stability may be ensured in the right upper medial lung-right upper lobe abnormality with repeat FDG PET study and/or CT of the thorax in 3-6 months. (Xiu, Journal of Nuclear Medicine 45:88, P2004 [facility], Seminars in Thoracic and Cardiovascular Surgery 14:292, 2002). 4. Facilitated tracer concentration observed in the mediastinum and right thoracic perihilum does not fulfill quantitative criteria for malignant transformation. (Esdras leblanc al, Journal of Clinical Oncology 16:2142, 1998). Electronic Signature Simon Hedrick D.O. Accurate Quantification of SUVs for this report are calculated using the exclusive Effic[employer]? Technology.??Exclusive [place].S. Patent Accuquan? Technology ([place].S. Patent No. [id number]). Electronically Signed: Simon Hedrick DO at 21:45 EST Tel , Service support ,
== END ==
LOC: ONC 13:41
PROVIDERS: PCP Internal Medicine; Referring Provider Internal Medicine Critical Care Medicine; Visit Provider Internal Medicine Critical Care Medicine
DX: R91.8 Other nonspecific abnormal finding of lung field (principal); R91.1 Solitary pulmonary nodule; N39.0 Urinary tract infection, site not specified
CPT/HCPCS: 78815; 87077; 87086; 87088; 87186; A9552

== ENCOUNTER → 2020-04-22 13:33 | Outpatient (CLI) | payer MEDICARE, SELFPAY ==
[2020-04-04 11:14] VITALS: BMI 19.6
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
== END ==
LOC: OPBD 13:33
PROVIDERS: PCP Internal Medicine; Referring Provider Internal Medicine; Visit Provider Internal Medicine
DX: M81.0 Age-related osteoporosis without current pathological fracture (principal)
CPT/HCPCS: 77080

== ENCOUNTER → 2020-04-23 14:21 | Outpatient (CLI) | payer MEDICARE, SELFPAY ==
[2020-04-23 14:21] VITALS: BMI 19.8
[2020-04-23 15:24] LABS: Absolute Lymphocyte Count 2.06 X10^3/uL (0.83-4.51); Absolute Neutrophil Count 3.7 X10^3/uL (2.0-7.7); Basophil# 0.05 X10^3/uL; Basophil% 0.7 % (0-1); Eosinophils% 2.9 % (0-5); Hematocrit 37.1 % (37-47); Hemoglobin 11.6 g/dL (12.0-15.0); Lymphocyte # 2.06 X10^3/ul (4.0); Lymphocyte % 30.2 % (19-41); Mean Corp Hgb Conc 31.3 g/dL (32-36); Mean Corpuscular Hgb 29.5 pg (27.0-32.0); Mean Corpuscular Volume 94.4 fL (81-99); Monocyte# 0.78 X10^3/uL; Monocyte% 11.4 % (0-10); NRBC Flagged by Analyzer 0 % (0-5); Neutrophil # 3.73 X10^3/uL (2.7-7.7); Neutrophil % 54.7 % (47-70); Platelet Count 378 K/mm3 (150-450); RBC Distribution Width CV 12.9 % (11.6-14.6); RBC Distribution Width SD 44.8 fl (35.1-43.9); Red Blood Count 3.93 M/mm3 (4.2-5.4); White Blood Count 6.8 K/mm3 (4.4-11.0)
[2020-04-23 16:08] LABS: T4 Free Direct 0.85 ng/dL (0.76-1.46)
[2020-04-23 16:09] LABS: Vitamin D,25 Hydroxy 23.1 ng/mL
[2020-04-23 16:13] LABS: ALB/GLOB Ratio 1.1 RATIO (0.9-2.4); AST(SGOT) 20 U/L (15-37); Alanine Aminotransfer ALT/SGPT 27 U/L (13-56); Albumin, Serum 3.6 g/dL (3.2-5.0); Alkaline Phosphatase 102 U/L (45-117); Anion Gap 4 (5-15); BUN 21 mg/dL (7-18); BUN/Creat Ratio 35.7 RATIO (10-20); Chloride 108 mmol/L (98-107); Cholesterol 152 mg/dL (200); Creatinine, Serum 0.59 mg/dL (0.55-1.02); EST Glomerular Filtration Rate 104 mL/min (>60); Est Glom Filt Rate - Afr Amer 126 mL/min (>60); Globulin 3.4 g/dL (2.2-4.2); Glucose 78 mg/dL (74-106); High Density Lipoprotein 63 mg/dL; Lipase 130 U/L (73-393); Potassium 4.2 mmol/L (3.5-5.1); Sodium Level 141 mmol/L (136-145); Thyroid Stim Hormone (TSH) 1.74 uIU/mL (0.358-3.74); Triglycerides 146 mg/dL; Very Low Density Lipoprotein 29 mg/dL (5-40)
[2020-04-25 20:49] LABS: Immunoglobulin M 91 mg/dL (26-217); t-Transglutaminase IgA <2 U/mL (0-3)
== END ==
LOC: BIMLAB 14:22
PROVIDERS: Internal Medicine Gastroenterology; PCP Internal Medicine; Referring Provider Internal Medicine; Visit Provider Internal Medicine
DX: R63.4 Abnormal weight loss (principal); K62.5 Hemorrhage of anus and rectum; K83.9 Disease of biliary tract, unspecified; R10.9 Unspecified abdominal pain; R14.0 Abdominal distension (gaseous); K59.1 Functional diarrhea; K21.9 Gastro-esophageal reflux disease without esophagitis; M81.0 Age-related osteoporosis without current pathological fracture; E56.9 Vitamin deficiency, unspecified; K86.89 Other specified diseases of pancreas; Z13.220 Encounter for screening for lipoid disorders
CPT/HCPCS: 36415; 80053; 80061; 82306; 82784; 83516; 83690; 84439; 84443; 85025

== ENCOUNTER → 2020-05-08 12:56 | Outpatient (CLI) | payer MEDICARE, SELFPAY ==
[2020-04-23 14:21] VITALS: BMI 19.8
--- NOTE | 2020-05-08 12:58 | MRI_ITS ---
STUDY: MR MRCP WITHOUT CONTRAST REASON FOR EXAM: Female, 84 years old. History of pancreatic duct stricture, recurrent, no complaints TECHNIQUE: Standard MRCP technique was utilized. COMPARISON: None. FINDINGS: Gall Bladder: Gall bladder is not visualized, which may reflect contraction or obstruction of the cystic duct. Cystic duct: Normal with no demonstrated fixed filling defect. Intrahepatic ducts: Normal visualized intrahepatic ducts with no demonstrated fixed filling defect, dilation or stricture. Common hepatic duct: Normal with no demonstrated fixed filling defect, dilation or stricture. Common bile duct: Fusiform dilatation the common bile duct measuring up to 15 mm in cross-sectional diameter which may be secondary to the cholecystectomy change or a type I choledochal cyst. No definite stricture or filling defect to suggest stone. Pancreatic duct: Normal with no demonstrated fixed filling defect, dilation or stricture. MRI/MRCP Abdomen without Contrast IMPRESSION: 1. Nonvisualization of the gallbladder which may be surgically or congenitally absent. 2. Fusiform dilatation the common bile duct measuring up to 15 mm in diameter which may represent postcholecystectomy change or type I choledochal cyst. No definite stricture or stone. Electronically Signed: Simon Pearson MD at 14:41 EST Tel , Service support ,
== END ==
PROVIDERS: PCP Internal Medicine; Referring Provider Internal Medicine; Visit Provider Internal Medicine
DX: K86.89 Other specified diseases of pancreas (principal)
CPT/HCPCS: 74181

== ENCOUNTER 2020-07-01 12:40 | Inpatient (IN) | payer MEDICARE, SELFPAY ==
[2020-04-23 14:21] VITALS: BMI 19.8
[2020-07-01 12:42] VITALS: BP 111/79; PULSE 96; RESP 16; TEMP 36.4; O2SAT 98; BMI 19.3
--- NOTE | 2020-07-01 13:03 | CT_ITS ---
STUDY: CT ABDOMEN AND PELVIS WITH CONTRAST REASON FOR EXAM: Female, 84 years old. abdominal pain RADIATION DOSAGE (If Supplied By Facility): CTDIvol = ( 6.95 ) mGy, DLP = ( 331.66 ) mGycm TECHNIQUE: Transaxial images were obtained from the dome of the diaphragm to the symphysis pubis without oral contrast. IV 75mL Isovue-300 was administered. Sagittal and coronal images were reconstructed. Individualized dose optimization techniques were used for this CT. COMPARISON: None. FINDINGS: Minor interstitial thickening at the lung bases.. The visualized portions of the heart are within normal limits. Postop changes at the gastroesophageal junction. Liver is normal in size and homogeneous attenuation. There is no mass identified. There is bile duct dilatation in association with prior cholecystectomy.. Pancreas is normal in size and homogeneous attenuation. There is no evidence for pancreatic mass however there is dilatation pancreatic duct. Normal bilateral adrenal glands. Normal right kidney. Normal left kidney. Normal visualized stomach. Postsurgical changes status post bowel resection in the right lower quadrant.. Nonspecific ileus pattern is noted. There are diffuse diverticular changes of colon. There is mild thickening of the duncan of the mid ascending colon and stranding in the adjacent fat which may be consistent with acute diverticulitis. No evidence for peridiverticular abscess.. Postsurgical changes status post bowel resection of the rectosigmoid.. Appendix not visualized consistent with appendectomy. Atherosclerotic changes of the aorta without evidence for aneurysm.. Normal inferior vena cava. Normal retroperitoneum. Incompletely distended thick-walled prolapsed bladder. Uterus not visualized status post hysterectomy Normal abdominal wall. Lumbar spine demonstrates degenerative change. Old compression fracture of T12. Right hip prosthesis is observed CT/Abdomen/Pelvis W IV Cont ONLY IMPRESSION: Diffuse diverticular disease of colon. There is thickening of the duncan of the mid ascending colon with stranding in the fat which may be consistent with acute diverticulitis.. No peridiverticular abscess is noted. Multiple postsurgical changes with findings as described above. Electronically Signed: Tani Drummond MD at 14:50 EDT , Service support ,
[2020-07-01] MEDS: 0.9% Normal Saline 1,000 ML 125 ML IV (13:22)
[2020-07-01] MEDS: Ondansetron 4 MG/2 ML Vial IV (13:22)
[2020-07-01] MEDS: Morphine 2 MG/ML Syringe IV (13:22)
[2020-07-01 13:42] LABS: Absolute Lymphocyte Count 1.39 X10^3/uL (0.83-4.51); Absolute Neutrophil Count 9.9 X10^3/uL (2.0-7.7); Basophil# 0.04 X10^3/uL; Basophil% 0.3 % (0-1); Eosinophil# 0.06 X10^3/uL; Eosinophils% 0.5 % (0-5); Hematocrit 35.7 % (37-47); Hemoglobin 11.3 g/dL (12.0-15.0); Lymphocyte # 1.39 X10^3/ul (0.83-4.51); Lymphocyte % 10.8 % (19-41); Mean Corp Hgb Conc 31.7 g/dL (32-36); Mean Corpuscular Hgb 29.5 pg (27.0-32.0); Mean Corpuscular Volume 93.2 fL (81-99); Mean Platelet Vol. 9.1 fl (6.2-12.0); Monocyte# 1.45 X10^3/uL; Monocyte% 11.2 % (0-10); NRBC Flagged by Analyzer 0 % (0-5); Neutrophil % 76.7 % (47-70); Platelet Count 338 K/mm3 (150-450); RBC Distribution Width CV 13.2 % (11.6-14.6); RBC Distribution Width SD 45.4 fl (35.1-43.9); Red Blood Count 3.83 M/mm3 (4.2-5.4); White Blood Count 12.9 K/mm3 (4.4-11.0)
[2020-07-01 13:54] LABS: ALB/GLOB Ratio 0.9 RATIO (0.9-2.4); AST(SGOT) 23 U/L (15-37); Alanine Aminotransfer ALT/SGPT 33 U/L (13-56); Albumin, Serum 3.6 g/dL (3.2-5.0); Alkaline Phosphatase 99 U/L (45-117); Anion Gap 8 (5-15); BUN 12 mg/dL (7-18); BUN/Creat Ratio 18.2 RATIO (10-20); Calcium,Total 9.3 mg/dL (8.5-10.1); Chloride 105 mmol/L (98-107); Creatinine, Serum 0.66 mg/dL (0.55-1.02); EST Glomerular Filtration Rate 91 mL/min (>60); Est Glom Filt Rate - Afr Amer 110 mL/min (>60); Estimated Creatinine Clearance 32.92 ml/min; Glucose 85 mg/dL (74-106); Lipase 31 U/L (73-393); Potassium 3.4 mmol/L (3.5-5.1); Protein, Total 7.6 g/dL (6.4-8.2); Sodium Level 140 mmol/L (136-145)
--- NOTE | 2020-07-01 13:54 | ED.DCSUM_ITS ---
History of Present Illness Chief Complaint: Abd Pain Informant: Patient Narrative: 84-year-old female presents with right-sided abdominal pain. Patient states tearfully that she knows she has appendicitis. She points to her right middle quadrant states the pain radiates to the left. No nausea no vomiting. No diarrhea or constipation. She pokes at her abdomen and then screams in pain. She denies any fevers. No urinary symptoms. She states that she is chilling and once a warm blanket but does not want to use the 3 blankets that are on her bed because they are not warm. Patient states that she has had a cholecystectomy. Later in her ED course is a try to find information on her p revious sickle history. She has had a total hysterectomy. She has had laparoscopic hemicolectomy 2009 a 20 cm ileum resection May 2012. 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 Past Medical History - Allergies and Home Meds Allergies/Adverse Reactions: Allergies adhesive tape Allergy (Mild, Verified 07/01/20 12:42) unknown alendronate sodium [From Fosamax] Allergy (Mild, Verified 07/01/20 12:42) Rash bisacodyl [From Fleet Prep Kit #1] Allergy (Verified 07/01/20 12:42) Other PT CANT REMEMBER REACTION ciprofloxacin [From Cipro] Allergy (Verified 07/01/20 12:42) Rash ciprofloxacin HCl [From Cipro] Allergy (Verified 07/01/20 12:42) Rash estradiol Allergy (Verified 07/01/20 12:42) Other PT CANT REMEMBER REACTION estrogens, conjugated [From Premarin] Allergy (Verified 07/01/20 12:42) Other PT CANT REMEMBER REACTION hydroxyzine Allergy (Verified 07/01/20 12:42) Other PT CANT REMEMBER REACTION levonorgestrel [From Climara Pro] Allergy (Verified 07/01/20 12:42) Other NSAIDS (Non-Steroidal Anti-Inflamma Allergy (Verified 07/01/20 12:42) Other PT CANT REMEMBER REACTION Penicillins Allergy (Verified 07/01/20 12:42) Swelling procaine HCl [From Novocain] Allergy (Verified 07/01/20 12:42) Other PT CANT REMEMBER REACTION sodium phosphate,monobasic-dibasic [From Fleet Prep Kit #1] Allergy (Verified 07/01/20 12:42) Other PT CANT REMEMBER REACTION Sulfa (Sulfonamide Antibiotics) Allergy (Verified 07/01/20 12:42) Swelling Primary Care Physician: Jennifer Klein MD [Primary Care Provider] - Surgical History: appendectomy, cholecystectomy, colectomy, hysterectomy, - Smoking Status: Former smoker Drugs: None - Family History Maternal Family History: Family History (Last Reviewed 04/01/20 @ 11:25 by Felipa Elizabeth) Other No pertinent family history Family History: Reports: - - Patient denies any maternal or paternal family history of heart disease, diabetes or cancer. Paternal Family History: Family History (Last Reviewed 04/01/20 @ 11:25 by Felipa Elizabeth) Other No pertinent family history Family History: Reports: - - Patient denies any maternal or paternal family history of heart disease, diabetes or cancer. Review of Systems General: Denies: Chills, Fever, Sweats Eyes: Denies: Visual changes - bilaterally, Diplopia ENT: Denies: Rhinorrhea, Sore throat Cardiovascular: Denies: Chest pain, Palpitations Respiratory: Denies: Dyspnea, Cough, Dyspnea on exertion Gastrointestinal: Reports: Abdominal pain. Denies: Nausea, Vomiting, Diarrhea, Melena, Hematochezia Genitourinary: Denies: Dysuria, Hematuria, Frequency Musculoskeletal: Denies: Back pain, Extremity Pain Skin: Denies: Rash, Wounds Neurological: Denies: Headache, Weakness, Numbness Physical Exam Vital Signs/Narrative: Vital Signs Temp Pulse Resp BP Pulse Ox 07/01/20 12:42 97.6 F L 96 16 111/79 98 Inital Vital Signs reviewed: Yes General: Well developed, No Acute Distress, - - Thin and frail elderly female laying in the bed. Appears anxious Head: Normocephalic, Atraumatic Eyes: Perrl, EOMI ENT: Moist mucous membranes, No rhinorrhea Neck: Supple, Nontender Cardiovascular: Regular rate, Regular rhythm, No murmurs Respiratory: No distress, CTA bilaterally, Chest nontender Abdomen: Soft, Nondistended, Normal bowel sounds, Tender, Guarding. Negative for: Rebound tenderness Back: Nontender, Normal Inspection Extremities: Nontender, No edema Skin: Normal color, No rash Neurological: Alert, Oriented x3, Cranial nerves II-XII grossly intact, Normal Strength, Normal Sensation Psychological: Tearful, - - Patient appears extremely anxious Diagnostic/Tx/Re-eval Clinical Impression(s) from Imaging Studies Abdomen/Pelvis CT 07/01/20 13:03 IMPRESSION: Diffuse diverticular disease of colon. There is thickening of the duncan of the mid ascending colon with stranding in the fat which may be consistent with acute diverticulitis.. No peridiverticular abscess is noted. Multiple postsurgical changes with findings as described above. Electronically Signed: Tani Drummond MD at 14:50 EDT , Service support , Laboratory Last Values WBC 12.9 K/mm3 (4.4-11.0) H 07/01/20 13:25 RBC 3.83 M/mm3 (4.2-5.4) L 07/01/20 13:25 Hgb 11.3 g/dL (12.0-15.0) L 07/01/20 13:25 Hct 35.7 % (37-47) L 07/01/20 13:25 MCV 93.2 fL (81-99) 07/01/20 13:25 MCH 29.5 pg (27.0-32.0) 07/01/20 13:25 MCHC 31.7 g/dL (32-36) L 07/01/20 13:25 RDW Std Deviation 45.4 fl (35.1-43.9) H 07/01/20 13:25 RDW Coeff of Devyn 13.2 % (11.6-14.6) 07/01/20 13:25 Plt Count 338 K/mm3 (150-450) 07/01/20 13:25 MPV 9.1 fl (6.2-12.0) 07/01/20 13:25 Immature Gran % (Auto) 0.500 % (0.0-0.9) 07/01/20 13:25 Neut % (Auto) 76.7 % (47-70) H 07/01/20 13:25 Lymph % (Auto) 10.8 % (19-41) L 07/01/20 13:25 Throckmorton % (Auto) 11.2 % (0-10) H 07/01/20 13:25 Eos % (Auto) 0.5 % (0-5) 07/01/20 13:25 Baso % (Auto) 0.3 % (0-1) 07/01/20 13:25 Absolute Neuts (auto) 9.9 X10^3/uL (2.0-7.7) H 07/01/20 13:25 Absolute Lymphs (auto) 1.39 X10^3/uL (0.83-4.51) 07/01/20 13:25 Nucleated RBC % 0 % (0-5) 07/01/20 13:25 Sodium 140 mmol/L (136-145) 07/01/20 13:25 Potassium 3.4 mmol/L (3.5-5.1) L 07/01/20 13:25 Chloride 105 mmol/L (98-107) 07/01/20 13:25 Carbon Dioxide 27.0 mmol/L (21.0-32.0) 07/01/20 13:25 Anion Gap 8 (5-15) 07/01/20 13:25 BUN 12 mg/dL (7-18) 07/01/20 13:25 Creatinine 0.66 mg/dL (0.55-1.02) 07/01/20 13:25 Estim Creat Clear Calc 32.92 ml/min 07/01/20 13:25 Est GFR (MDRD) Af Amer 110 mL/min (>60) 07/01/20 13:25 Est GFR (MDRD) Non-Af 91 mL/min (>60) 07/01/20 13:25 BUN/Creatinine Ratio 18.2 RATIO (10-20) 07/01/20 13:25 Glucose 85 mg/dL (74-106) 07/01/20 13:25 Calcium 9.3 mg/dL (8.5-10.1) 07/01/20 13:25 Total Bilirubin 0.70 mg/dL (0.20-1.00) 07/01/20 13:25 AST 23 U/L (15-37) 07/01/20 13:25 ALT 33 U/L (13-56) 07/01/20 13:25 Alkaline Phosphatase 99 U/L (45-117) 07/01/20 13:25 Total Protein 7.6 g/dL (6.4-8.2) 07/01/20 13:25 Albumin 3.6 g/dL (3.2-5.0) 07/01/20 13:25 Globulin 4.0 g/dL (2.2-4.2) 07/01/20 13:25 Albumin/Globulin Ratio 0.9 RATIO (0.9-2.4) 07/01/20 13:25 Lipase 31 U/L (73-393) L 07/01/20 13:25 - Medical Decision Making White blood cell count is elevated at 12. CT demonstrates diffuse diverticular disease of the colon with thickening of the ascending colon and stranding in the fat consistent with acute diverticulitis. Given the patient's age and frail OT recommending admission. I will speak with her hospitalist. ED Disposition - Plan for ED Patient: Disposition: Acute Care Hospital [facility] Diagnosis: Acute diverticulitis of intestine, Acute abdominal pain Referrals: Jennifer Klein MD [Primary Care Provider] -
[2020-07-01 15:24] VITALS: BP 118/69; PULSE 88; RESP 16; RESP 18; TEMP 37.1; O2SAT 94; O2SAT 95
[2020-07-01] MEDS: Ceftriaxone 1 GM/50 ML BAG IV (15:35)
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
[2020-07-01 15:52] LABS: Lactic Acid 0.6 mmol/L (0.4-1.9)
[2020-07-01 16:36] VITALS: BP 133/80; PULSE 82; RESP 16; TEMP 36.8; O2SAT 94
[2020-07-01 16:43] VITALS: BMI 19.0
[2020-07-01 16:50] VITALS: BMI 19.0
[2020-07-01] MEDS: metroNIDAZOLE 500 MG/100 ML BAG 100 MG IV (17:06)
[2020-07-01] MEDS: Potassium Chloride 40 MEQ in 0.9% Normal Saline 1,000 ML 125 MEQ IV (17:19)
[2020-07-01 19:49] VITALS: PULSE 96
[2020-07-01 21:53] VITALS: BP 136/77; PULSE 96; RESP 16; TEMP 37; O2SAT 93
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
[2020-07-02] VITALS (8 sets, daily range): BP systolic 119–144; BP diastolic 63–94; PULSE 77–91; RESP 16–18; TEMP 36.7–37.7; O2SAT 93–97
[2020-07-02] MEDS: Potassium Chloride 40 MEQ in 0.9% Normal Saline 1,000 ML 125 MEQ IV ×2 (02:19→10:46)
[2020-07-02 06:01] LABS: Absolute Lymphocyte Count 1.78 X10^3/uL (0.83-4.51); Absolute Neutrophil Count 7.5 X10^3/uL (2.0-7.7); Basophil# 0.05 X10^3/uL; Basophil% 0.5 % (0-1); Eosinophil# 0.03 X10^3/uL; Eosinophils% 0.3 % (0-5); Hemoglobin 10.3 g/dL (12.0-15.0); Lymphocyte # 1.78 X10^3/ul (0.83-4.51); Mean Corp Hgb Conc 31.2 g/dL (32-36); Mean Corpuscular Hgb 29.7 pg (27.0-32.0); Mean Corpuscular Volume 95.1 fL (81-99); Mean Platelet Vol. 8.9 fl (6.2-12.0); Monocyte# 1.07 X10^3/uL; Monocyte% 10.2 % (0-10); NRBC Flagged by Analyzer 0 % (0-5); Neutrophil # 7.49 X10^3/uL (2.7-7.7); Neutrophil % 71.6 % (47-70); Platelet Count 304 K/mm3 (150-450); RBC Distribution Width CV 13.2 % (11.6-14.6); RBC Distribution Width SD 46.1 fl (35.1-43.9); Red Blood Count 3.47 M/mm3 (4.2-5.4); White Blood Count 10.5 K/mm3 (4.4-11.0)
[2020-07-02 06:33] LABS: Anion Gap 5 (5-15); BUN 9 mg/dL (7-18); BUN/Creat Ratio 19.8 RATIO (10-20); Calcium,Total 8.3 mg/dL (8.5-10.1); Chloride 112 mmol/L (98-107); Creatinine, Serum 0.45 mg/dL (0.55-1.02); EST Glomerular Filtration Rate 140 mL/min (>60); Est Glom Filt Rate - Afr Amer 170 mL/min (>60); Estimated Creatinine Clearance 32.94 ml/min; Glucose 73 mg/dL (74-106); Sodium Level 142 mmol/L (136-145)
--- NOTE | 2020-07-02 07:16 | PCM.PN.SRG ---
Patient Problems: Active and Suspected Problems (Last Reviewed 04/01/20 @ 11:25 by Felipa Elizabeth) Acute diverticulitis of intestine (Acute) Acute abdominal pain (Acute) Subjective: Patient reports feeling better but she has pain still. - Physical Exam Vitals/I&O's: Vital Signs Temp Pulse Resp BP Pulse Ox 98.2 F 89 17 119/64 96 07/02/20 02:24 07/02/20 04:20 07/02/20 02:24 07/02/20 02:24 07/02/20 02:24 Oxygen Delivery Method Room Air Weight: 106 lb 0.677 oz Body Mass Index (BMI) 19.0 Intake and Output for Last 24 Hours 06/30/20 07/01/20 07/02/20 23:59 23:59 23:59 Intake Total 745.84 / 745.84 1135.83 / 1135.83 Output Total 200 / 200 Balance 745.84 / 745.84 935.83 / 935.83 General: Alert, Oriented x3 Cardiovascular: Regular rate, Regular Rhythm Abdomen: Soft, Non-Distended, Tender - Tender on the right side the abdomen with no guarding or rebound Laboratory Results 07/01/20 13:25: WBC 12.9 H, RBC 3.83 L, Hgb 11.3 L, Hct 35.7 L, MCV 93.2, MCH 29.5, MCHC 31.7 L, RDW Std Deviation 45.4 H, RDW Coeff of Devyn 13.2, Plt Count 338, MPV 9.1, Immature Gran % (Auto) 0.500, Neut % (Auto) 76.7 H, Lymph % (Auto) 10.8 L, [place] % (Auto) 11.2 H, Eos % (Auto) 0.5, Baso % (Auto) 0.3, Absolute Neuts (auto) 9.9 H, Absolute Lymphs (auto) 1.39, Nucleated RBC % 0 07/01/20 13:25: Sodium 140, Potassium 3.4 L, Chloride 105, Carbon Dioxide 27.0, Anion Gap 8, BUN 12, Creatinine 0.66, Estim Creat Clear Calc 32.92, Est GFR (MDRD) Af Amer 110, Est GFR (MDRD) Non-Af 91, BUN/Creatinine Ratio 18.2, Glucose 85, Calcium 9.3, Total Bilirubin 0.70, AST 23, ALT 33, Alkaline Phosphatase 99, Total Protein 7.6, Albumin 3.6, Globulin 4.0, Albumin/Globulin Ratio 0.9, Lipase 31 L 07/01/20 15:15: Lactic Acid 0.6 07/02/20 05:51: WBC 10.5, RBC 3.47 L, Hgb 10.3 L, Hct 33.0 L, MCV 95.1, MCH 29.7, MCHC 31.2 L, RDW Std Deviation 46.1 H, RDW Coeff of Devyn 13.2, Plt Count 304, MPV 8.9, Immature Gran % (Auto) 0.400, Neut % (Auto) 71.6 H, Lymph % (Auto) 17.0 L, [place] % (Auto) 10.2 H, Eos % (Auto) 0.3, Baso % (Auto) 0.5, Absolute Neuts (auto) 7.5, Absolute Lymphs (auto) 1.78, Nucleated RBC % 0 07/02/20 05:51: Sodium 142, Potassium 4.0, Chloride 112 H, Carbon Dioxide 25.0, Anion Gap 5, BUN 9, Creatinine 0.45 L, Estim Creat Clear Calc 32.94, Est GFR (MDRD) Af Amer 170, Est GFR (MDRD) Non-Af 140, BUN/Creatinine Ratio 19.8, Glucose 73 L, Calcium 8.3 L Current Medications Enoxaparin Sodium (Enoxaparin 40 Mg/0.4 Ml Syringe) 40 mg SC DAILY ON LICENSE OF [facility] Meropenem 1 gm/ Sodium (Chloride) 120 mls @ 33 mls/hr IV Q12 ON LICENSE OF [facility] Last Infusion: 07/02/20 01:39 Dose: Infused Documented by: Potassium Chloride 40 meq/ (Sodium Chloride) 1,020 mls @ 125 mls/hr IV .Q8H10M ON LICENSE OF [facility] Stop: 07/02/20 16:38 Last Admin: 07/02/20 02:19 Dose: 125 mls/hr Documented by: Morphine Sulfate (Morphine 2 Mg/Ml Syringe) 2 mg IV Q3H PRN PRN PRN Reason: Pain Score 6-10 Ondansetron HCl (Ondansetron 4 Mg/2 Ml Vial) 4 mg IV Q8H PRN PRN PRN Reason: NAUSEA/VOMITING Sodium Chloride (0.9% Saline Lock 10 Ml Syringe) 10 - 40 ml IV UD PRN PRN Reason: SALINE FLUSH Medical Necessity - Tobacco Use Smoking Status: Former smoker Assessment/Plan All Active Problems (Last Reviewed 04/01/20 @ 11:25 by Felipa Elizabeth) Acute diverticulitis of intestine (Acute) Acute abdominal pain (Acute) Right upper lobe pulmonary nodule (Acute) Angina at rest (Acute) Dyspnea on exertion (Acute) Chest pain on exertion (Acute) 84-year-old female with diverticulitis of the ascending colon 1. The patient is white count is decreasing but she still has tenderness on the right side. Continue antibiotics and n.p.o. until the patient's pain resolves. Patient will need colonoscopy after resolution. Dangelo Blair MD Pager: [facility] [address] [place] [address], [address] [place] [address] Office:
[2020-07-02] MEDS: Enoxaparin 40 MG/0.4 ML Syringe SC (10:55)
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
--- NOTE | 2020-07-02 15:44 | CHAPLAIN ---
Type of Pastoral Visit _x__ Initial Visit ___ Follow-up Visit ___ On-call Visit ___ General Patient Visit ___ Spiritual Assessment ___ Family Conference ___ Bereavement ___ Rapid Response ___ Code Blue ___ Other (describe below) Pastoral Care Referral From _x__ Patient ___ Family ___ Nurse ___ Physician ___ Director Trading ___ Materials Handling Coordinator ___ Other (describe below) Sacrament/Intervention _x__ Active listening ___ Anointing ___ Yarsani ___ Bereavement ___ Communion _x__ Yojana exploration ___ _x__ Life review _x__ Prayer ___ Reconciliation ___ Sacrament of Sick _x__ Supportive presence ___ Wedding ___ Other (describe below) Pastoral Comments patient is very talkative, identifies herself as strong Congregational, and explains her current home situation and life history; pt requests prayer support.
--- NOTE | 2020-07-02 18:42 | PCM.PROGNOTE ---
Patient Problems: Active and Suspected Problems (Last Reviewed 04/01/20 @ 11:25 by Felipa Elizabeth) Acute diverticulitis of intestine (Acute) Acute abdominal pain (Acute) Subjective: Patient was seen and examined today, she still complaining of some right mid and upper abdominal discomfort today. Patient's white blood cell count is normal today, high temperature today was 99.9. - Physical Exam Vitals/I&O's: Vital Signs Temp Pulse Resp BP Pulse Ox 99.9 F H 91 18 136/71 H 93 07/02/20 15:15 07/02/20 15:15 07/02/20 15:15 07/02/20 15:15 07/02/20 15:15 Oxygen Delivery Method Room Air Weight: 48.1 kg Body Mass Index (BMI) 19.0 Intake and Output for Last 24 Hours 06/30/20 07/01/20 07/02/20 23:59 23:59 23:59 Intake Total 745.84 / 745.84 2275.83 / 2275.83 Output Total 200 / 200 Balance 745.84 / 745.84 2075.83 / 2075.83 General: Alert, Oriented x3, Cooperative, No apparent distress, Well developed, Well nourished HEENT: Atraumatic, PERRLA, EOMI, Normocephalic Oral: Moist Mucosa Neck: Supple, No JVD, Trachea Midline, Thyroid Normal Size and Texture Lungs: Clear to auscultation, Normal air movement, No rhonchi, No wheeze, No rales Cardiovascular: Regular rate, Regular Rhythm, Normal S1, Normal S2, No murmurs, PMI Normal, No rub noted Abdomen: Bowel Sounds Present, Soft, Non-Distended, Tender - Some mild right upper quadrant and right mid quadrant abdominal tenderness is noted to palpation Extremities: No clubbing, No cyanosis, No edema, Capillary Refill Less than 3 Seconds Skin: No rashes, No breakdown Musculoskeletal: No Tenderness to Palpation of Joints or Extremities Neurological: Cranial nerves II-XII grossly intact, Neuro grossly intact, Sensory exam intact to light touch and pain, Coordination normal Psych/Mental Status: Normal Affect, Appropriate, Alert and oriented to time, place, person, mood and affect Laboratory Results 07/02/20 05:51: WBC 10.5, RBC 3.47 L, Hgb 10.3 L, Hct 33.0 L, MCV 95.1, MCH 29.7, MCHC 31.2 L, RDW Std Deviation 46.1 H, RDW Coeff of Devyn 13.2, Plt Count 304, MPV 8.9, Immature Gran % (Auto) 0.400, Neut % (Auto) 71.6 H, Lymph % (Auto) 17.0 L, [place] % (Auto) 10.2 H, Eos % (Auto) 0.3, Baso % (Auto) 0.5, Absolute Neuts (auto) 7.5, Absolute Lymphs (auto) 1.78, Nucleated RBC % 0 07/02/20 05:51: Sodium 142, Potassium 4.0, Chloride 112 H, Carbon Dioxide 25.0, Anion Gap 5, BUN 9, Creatinine 0.45 L, Estim Creat Clear Calc 32.94, Est GFR (MDRD) Af Amer 170, Est GFR (MDRD) Non-Af 140, BUN/Creatinine Ratio 19.8, Glucose 73 L, Calcium 8.3 L Current Medications Enoxaparin Sodium (Enoxaparin 40 Mg/0.4 Ml Syringe) 40 mg SC DAILY [facility] Last Admin: 07/02/20 10:55 Dose: 40 mg Documented by: Meropenem 1 gm/ Sodium (Chloride) 120 mls @ 33 mls/hr IV Q12 [facility] Last Infusion: 07/02/20 13:31 Dose: Infused Documented by: Morphine Sulfate (Morphine 2 Mg/Ml Syringe) 2 mg IV Q3H PRN PRN PRN Reason: Pain Score 6-10 Ondansetron HCl (Ondansetron 4 Mg/2 Ml Vial) 4 mg IV Q8H PRN PRN PRN Reason: NAUSEA/VOMITING Sodium Chloride (0.9% Saline Lock 10 Ml Syringe) 10 - 40 ml IV UD PRN PRN Reason: SALINE FLUSH Medical Necessity - Tobacco Use Smoking Status: Former smoker Assessment/Plan All Active Problems (Last Reviewed 04/01/20 @ 11:25 by Felipa Elizabeth) Acute diverticulitis of intestine (Acute) Acute abdominal pain (Acute) Right upper lobe pulmonary nodule (Acute) Angina at rest (Acute) Dyspnea on exertion (Acute) Chest pain on exertion (Acute) #1 acute diverticulitis of the ascending colon-continue present antibiotic coverage, surgery is following #2 hypokalemia-resolved Inpatient E&M: 90070 Subs Hosp L2
[2020-07-02] MEDS: Lactated Ringers 1,000 ML 100 ML IV (20:52)
[2020-07-02] MEDS: Acetaminophen 325 MG Tablet 650 MG PO (20:52)
[2020-07-03] VITALS (7 sets, daily range): BP systolic 111–125; BP diastolic 61–71; PULSE 60–75; RESP 16–18; TEMP 36.4–37; O2SAT 95–100
[2020-07-03] MEDS: Lactated Ringers 1,000 ML 100 ML IV (08:36)
[2020-07-03] MEDS: Acetaminophen 325 MG Tablet 650 MG PO (08:36)
[2020-07-03] MEDS: Enoxaparin 40 MG/0.4 ML Syringe SC (09:52)
--- NOTE | 2020-07-03 10:04 | PCM.PN.SRG ---
Patient Problems: Active and Suspected Problems (Last Reviewed 04/01/20 @ 11:25 by Felipa Elizabeth) Acute diverticulitis of intestine (Acute) Acute abdominal pain (Acute) Subjective: Patient feels much better with no abdominal pain this morning - Physical Exam Vitals/I&O's: Vital Signs Temp Pulse Resp BP Pulse Ox 98.1 F 72 18 123/65 H 98 07/03/20 08:28 07/03/20 08:28 07/03/20 08:28 07/03/20 08:28 07/03/20 08:28 Oxygen Delivery Method Room Air Weight: 106 lb 0.677 oz Body Mass Index (BMI) 19.0 Intake and Output for Last 24 Hours 07/01/20 07/02/20 07/03/20 23:59 23:59 23:59 Intake Total 745.84 / 745.84 3295.83 / 3295.83 1120 / 1120 Output Total 200 / 200 Balance 745.84 / 745.84 3095.83 / 3095.83 1120 / 1120 General: Alert, Oriented x3 Cardiovascular: Regular rate, Regular Rhythm Abdomen: Soft, Non Tender, Non-Distended Current Medications Acetaminophen (Acetaminophen 325 Mg Tablet) 650 mg PO Q4H PRN PRN PRN Reason: Pain 1-10 or Fever Last Admin: 07/03/20 08:36 Dose: 650 mg Documented by: Enoxaparin Sodium (Enoxaparin 40 Mg/0.4 Ml Syringe) 40 mg SC DAILY [facility] Last Admin: 07/03/20 09:52 Dose: 40 mg Documented by: Meropenem 1 gm/ Sodium (Chloride) 120 mls @ 33 mls/hr IV Q12 [facility] Last Admin: 07/03/20 09:49 Dose: 33 mls/hr Documented by: Lactated Ringer's () 1,000 mls @ 100 mls/hr IV .Q10H [facility] Last Admin: 07/03/20 08:36 Dose: 100 mls/hr Documented by: Morphine Sulfate (Morphine 2 Mg/Ml Syringe) 2 mg IV Q3H PRN PRN PRN Reason: Pain Score 6-10 Ondansetron HCl (Ondansetron 4 Mg/2 Ml Vial) 4 mg IV Q8H PRN PRN PRN Reason: NAUSEA/VOMITING Sodium Chloride (0.9% Saline Lock 10 Ml Syringe) 10 - 40 ml IV UD PRN PRN Reason: SALINE FLUSH Medical Necessity - Tobacco Use Smoking Status: Former smoker Assessment/Plan All Active Problems (Last Reviewed 04/01/20 @ 11:25 by Felipa Elizabeth) Acute diverticulitis of intestine (Acute) Acute abdominal pain (Acute) Right upper lobe pulmonary nodule (Acute) Angina at rest (Acute) Dyspnea on exertion (Acute) Chest pain on exertion (Acute) 84-year-old female with acute diverticulitis of the right side of the colon 1. The patient feels much better today and she does not have any pain on palpation. I will start her on a clear liquid diet and advance as tolerated. If she tolerates a regular diet she is able to be discharged home on oral Cipro and Flagyl for 10 days and she should follow-up with me to set up a colonoscopy in the near future. Dangelo Blair MD Pager: [facility] [address] [place] [address], [address] [place] [address] Office:
--- NOTE | 2020-07-03 19:27 | PN_ITS ---
Patient Problems: Active and Suspected Problems (Last Reviewed 04/01/20 @ 11:25 by Felipa Elizabeth) Acute diverticulitis of intestine (Acute) Acute abdominal pain (Acute) Subjective: Patient was seen and examined today, she has less abdominal pain today than yesterday although she is having frequent diarrhea today. I have ordered a C. difficile toxin to rule out C. difficile. In the meantime I have placed her on some Bentyl and I gave her 1 dose of Imodium. Objective: General: Alert, Oriented x3, Cooperative, No apparent distress, Well developed, Well nourished HEENT: Atraumatic, PERRLA, EOMI, Normocephalic Oral: Moist Mucosa Neck: Supple, No JVD, Trachea Midline, Thyroid Normal Size and Texture Lungs: Clear to auscultation, Normal air movement, No rhonchi, No wheeze, No rales Cardiovascular: Regular rate, Regular Rhythm, Normal S1, Normal S2, No murmurs, PMI Normal, No rub noted Abdomen: Bowel Sounds Present, Soft, Non-Distended, Tender - Some mild right upper quadrant and right mid quadrant abdominal tenderness is noted to palpation Extremities: No clubbing, No cyanosis, No edema, Capillary Refill Less than 3 Seconds Skin: No rashes, No breakdown Musculoskeletal: No Tenderness to Palpation of Joints or Extremities Neurological: Cranial nerves II-XII grossly intact, Neuro grossly intact, Sensory exam intact to light touch and pain, Coordination normal Psych/Mental Status: Normal Affect, Appropriate, Alert and oriented to time, place, person, mood and affect - Physical Exam Vitals/I&O's: Vital Signs Temp Pulse Resp BP Pulse Ox 98.0 F 74 18 111/63 97 07/03/20 14:00 07/03/20 14:00 07/03/20 14:00 07/03/20 14:00 07/03/20 14:00 Oxygen Delivery Method Room Air Weight: 48.1 kg Body Mass Index (BMI) 19.0 Intake and Output for Last 24 Hours 07/01/20 07/02/20 07/03/20 23:59 23:59 23:59 Intake Total 745.84 / 745.84 3295.83 / 3295.83 2908 / 2908 Output Total 200 / 200 Balance 745.84 / 745.84 3095.83 / 3095.83 2908 / 2908 Microbiology Past 72 Hours 07/01/20 15:30 Blood Culture (Wb) - Right Forearm Blood Culture - Preliminary No growth in 48 hours. 07/01/20 15:20 Blood Culture (Wb) - Anticubital Right Blood Culture - Preliminary No growth in 48 hours. Current Medications Acetaminophen (Acetaminophen 325 Mg Tablet) 650 mg PO Q4H PRN PRN PRN Reason: Pain 1-10 or Fever Last Admin: 07/03/20 08:36 Dose: 650 mg Documented by: Dicyclomine HCl (Dicyclomine 10 Mg Capsule) 20 mg PO TIDAC [facility] Enoxaparin Sodium (Enoxaparin 40 Mg/0.4 Ml Syringe) 40 mg SC DAILY [facility] Last Admin: 07/03/20 09:52 Dose: 40 mg Documented by: Meropenem 1 gm/ Sodium (Chloride) 120 mls @ 33 mls/hr IV Q12 [facility] Last Infusion: 07/03/20 13:28 Dose: Infused Documented by: Morphine Sulfate (Morphine 2 Mg/Ml Syringe) 2 mg IV Q3H PRN PRN PRN Reason: Pain Score 6-10 Ondansetron HCl (Ondansetron 4 Mg/2 Ml Vial) 4 mg IV Q8H PRN PRN PRN Reason: NAUSEA/VOMITING Sodium Chloride (0.9% Saline Lock 10 Ml Syringe) 10 - 40 ml IV UD PRN PRN Reason: SALINE FLUSH Medical Necessity - Tobacco Use Smoking Status: Former smoker Assessment/Plan All Active Problems (Last Reviewed 04/01/20 @ 11:25 by Felipa Elizabeth) Acute diverticulitis of intestine (Acute) Acute abdominal pain (Acute) Right upper lobe pulmonary nodule (Acute) Angina at rest (Acute) Dyspnea on exertion (Acute) Chest pain on exertion (Acute) #1 acute diverticulitis of the ascending colon-continue present antibiotic coverage, surgery is following #2 hypokalemia-resolved #3 diarrhea-etiology unclear, could be secondary to antibiotic usage or C. difficile, I have ordered a C. difficile toxin and I will give the patient some antispasmodics for now. Inpatient E&M: 20854 Subs Hosp L2
[2020-07-03] MEDS: Dicyclomine 10 MG Capsule 20 MG PO (19:46)
[2020-07-03] MEDS: Loperamide 2 MG Capsule 4 MG PO (19:48)
[2020-07-03] MEDS: 0.9% Saline Lock 10 ML Syringe IV (21:48)
[2020-07-04 03:22] VITALS: BP 137/82; PULSE 65; RESP 18; TEMP 36.9; O2SAT 94
[2020-07-04] MEDS: Dicyclomine 10 MG Capsule 20 MG PO ×2 (06:14→11:08)
[2020-07-04] MEDS: Acetaminophen 325 MG Tablet 650 MG PO (06:15)
--- NOTE | 2020-07-04 07:22 | PCM.PN.SRG ---
Patient Problems: Active and Suspected Problems (Last Reviewed 04/01/20 @ 11:25 by Felipa Elizabeth) Acute diverticulitis of intestine (Acute) Acute abdominal pain (Acute) Subjective: The patient reports feeling well and tolerating a diet. - Physical Exam Vitals/I&O's: Vital Signs Temp Pulse Resp BP Pulse Ox 98.5 F 65 18 137/82 H 94 07/04/20 03:22 07/04/20 03:22 07/04/20 03:22 07/04/20 03:22 07/04/20 03:22 Oxygen Delivery Method Room Air Weight: 106 lb 0.677 oz Body Mass Index (BMI) 19.0 Intake and Output for Last 24 Hours 07/02/20 07/03/20 07/04/20 23:59 23:59 23:59 Intake Total 3295.83 / 3295.83 2908 / 2908 720 / 720 Output Total 200 / 200 Balance 3095.83 / 3095.83 2908 / 2908 720 / 720 General: Alert, Oriented x3 Lungs: Normal air movement Cardiovascular: Regular rate, Regular Rhythm Abdomen: Soft, Non-Distended Microbiology Past 72 Hours 07/03/20 20:00 Stool C. difficile DNA Amplification - Final 07/01/20 15:30 Blood Culture (Wb) - Right Forearm Blood Culture - Preliminary No growth in 48 hours. 07/01/20 15:20 Blood Culture (Wb) - Anticubital Right Blood Culture - Preliminary No growth in 48 hours. Current Medications Acetaminophen (Acetaminophen 325 Mg Tablet) 650 mg PO Q4H PRN PRN PRN Reason: Pain 1-10 or Fever Last Admin: 07/04/20 06:15 Dose: 650 mg Documented by: Dicyclomine HCl (Dicyclomine 10 Mg Capsule) 20 mg PO TIDAC [facility] Last Admin: 07/04/20 06:14 Dose: 20 mg Documented by: Enoxaparin Sodium (Enoxaparin 40 Mg/0.4 Ml Syringe) 40 mg SC DAILY [facility] Last Admin: 07/03/20 09:52 Dose: 40 mg Documented by: Meropenem 1 gm/ Sodium (Chloride) 120 mls @ 33 mls/hr IV Q12 [facility] Last Infusion: 07/04/20 01:33 Dose: Infused Documented by: Morphine Sulfate (Morphine 2 Mg/Ml Syringe) 2 mg IV Q3H PRN PRN PRN Reason: Pain Score 6-10 Ondansetron HCl (Ondansetron 4 Mg/2 Ml Vial) 4 mg IV Q8H PRN PRN PRN Reason: NAUSEA/VOMITING Sodium Chloride (0.9% Saline Lock 10 Ml Syringe) 10 - 40 ml IV UD PRN PRN Reason: SALINE FLUSH Last Admin: 07/03/20 21:48 Dose: 10 ml Documented by: Medical Necessity - Tobacco Use Smoking Status: Former smoker Assessment/Plan All Active Problems (Last Reviewed 04/01/20 @ 11:25 by Felipa Elizabeth) Acute diverticulitis of intestine (Acute) Acute abdominal pain (Acute) Right upper lobe pulmonary nodule (Acute) Angina at rest (Acute) Dyspnea on exertion (Acute) Chest pain on exertion (Acute) 84-year-old female with diverticulitis of the ascending colon 1. The patient still has some very mild tenderness to deep palpation but at baseline no pain. She tolerated a regular diet. She may be discharged at the discretion of the hospitalist service and I would like her to continue Cipro and Flagyl as well for 10 days. She should follow-up with me to schedule colonoscopy. Dangelo Blair MD Pager: [facility] [address] [place] [address], [address] [place] [address] Office:
[2020-07-04] MEDS: Enoxaparin 40 MG/0.4 ML Syringe SC (09:18)
[2020-07-04 09:31] VITALS: BP 104/76; PULSE 69; RESP 18; TEMP 36.4; O2SAT 97
--- NOTE | 2020-07-04 11:02 | PCM.DC ---
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) Esophageal reflux (Chronic) You will use the following diet at home:: No restrictions Your food should be the consistency of: Regular Your liquids should be the consistency of: Regular/Thin Discharge Activity: Return to Normal Activity Weight Bearing Status: Full weight bearing Allergies/Adverse Reactions: Allergies adhesive tape Allergy (Mild, Verified 07/01/20 12:42) unknown alendronate sodium [From Fosamax] Allergy (Mild, Verified 07/01/20 12:42) Rash bisacodyl [From Fleet Prep Kit #1] Allergy (Verified 07/01/20 12:42) Other PT CANT REMEMBER REACTION ciprofloxacin [From Cipro] Allergy (Verified 07/01/20 12:42) Rash ciprofloxacin HCl [From Cipro] Allergy (Verified 07/01/20 12:42) Rash estradiol Allergy (Verified 07/01/20 12:42) Other PT CANT REMEMBER REACTION estrogens, conjugated [From Premarin] Allergy (Verified 07/01/20 12:42) Other PT CANT REMEMBER REACTION hydroxyzine Allergy (Verified 07/01/20 12:42) Other PT CANT REMEMBER REACTION levonorgestrel [From Climara Pro] Allergy (Verified 07/01/20 12:42) Other NSAIDS (Non-Steroidal Anti-Inflamma Allergy (Verified 07/01/20 12:42) Other PT CANT REMEMBER REACTION Penicillins Allergy (Verified 07/01/20 12:42) Swelling procaine HCl [From Novocain] Allergy (Verified 07/01/20 12:42) Other PT CANT REMEMBER REACTION sodium phosphate,monobasic-dibasic [From Fleet Prep Kit #1] Allergy (Verified 07/01/20 12:42) Other PT CANT REMEMBER REACTION Sulfa (Sulfonamide Antibiotics) Allergy (Verified 07/01/20 12:42) Swelling Medications to take at Discharge biotin 5,000 mcg sublingual tablet 5,000 mcg SUBLINGUAL DAILY 11/09/19 cholecalciferol (vitamin D3) 50 mcg (2,000 unit) capsule 50 mcg PO DAILY #90 cap 04/23/20 Aspirin [Low Dose Aspirin EC] 81 mg PO DAILY@0800 07/01/20 Calcium Carb/Vitamin D [Caltrate-600 With Vit D Tab] 1 tablet PO DAILY 07/01/20 Multivitamin 1 tablet PO DAILY 07/01/20 Amox/Clavulanate Tablet [Augmentin Tablet] 875 mg PO Q12H #14 tab 07/04/20 Dicyclomine HCl [Bentyl] 20 mg PO TID PRN PRN #60 capsule 07/04/20 The following prescriptions were given: Amox/Clavulanate Tablet [Augmentin Tablet] 875 mg PO Q12H #14 tab Transmission Status: [place] [id number] [facility] . Dicyclomine HCl [Bentyl] 20 mg PO TID PRN PRN #60 capsule PRN Reason: Diarrhea Transmission Status: Pending to [id number] Primary Care Physician: Jennifer Klein MD [Primary Care Provider] - Please follow up with your Primary Care Physician in: in 2 weeks Test Results: Test results from this visit will be discussed in further detail at your follow-up appointment, if applicable. Please Follow Up With: Dangelo Blair MD When: in 2 weeks
[2020-07-04 13:49] VITALS: BP 104/76; PULSE 97; RESP 18; TEMP 36.4; O2SAT 67
--- NOTE | 2020-07-04 15:58 | NURSING ---
per primary RN pt's daughter called in upset stating [facility] refusing to fill [facility] script d/t allergies. States the pharmacy attempted to reach Dr. Price but could not. Dr. Price sent text informing of above and included phone number for this pharmacy requesting they contact them.
--- NOTE | 2020-07-05 08:55 | DS.PCM_ITS ---
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 Work-up in the emergency room showed a white blood cell count of 12.9, CT of the abdomen and pelvis showed diffuse diverticular disease of the colon with thickening loss of the mid ascending colon with stranding in the fat that could be consistent with acute diverticulitis. No abscess was noted to be present, patient's potassium was slightly low. Patient was admitted to [place] [address], she was placed on IV antibiotics and seen in consultation by general surgery, she had some diarrhea during her hospital stay her C. difficile toxin was negative. Patient improved during her hospital stay. On examination she appeared in good health and spirits, she does not appear to be in any distress. Vital signs as documented. Skin warm and dry and without overt rashes. Neck without JVD, thyroid appears normal, trachea is midline, neck is supple. Lungs clear, normal air movement was noted. Heart exam notable for regular rhythm, normal sounds and absence of murmurs, rubs or gallops. Abdomen unremarkable and without evidence of organomegaly, masses, or abdominal aortic enlargement, bowel sounds are present in all 4 quadrants, mild abdominal tenderness was noted. Extremities nonedematous, no cyanosis was noted, no clubbing was noted. Neuro: Cranial nerves II through XII are grossly intact, no focal motor deficits were noted, sensation to light touch and pinprick is intact, motor exam 5/5 throughout. Psych: Patient is alert and oriented x3, she does not appear anxious or depressed, she does not appear agitated Patient was felt to be stable for discharge on 07/04/2020. Patient Problems: Active and Suspected Problems (Last Reviewed 04/01/20 @ 11:25 by Felipa Elizabeth) Acute diverticulitis of intestine (Acute) Acute abdominal pain (Acute) - Physical Exam Vitals/I&O's: Vital Signs Temp Pulse Resp BP Pulse Ox 97.6 F L 97 18 104/76 67 07/04/20 13:49 07/04/20 13:49 07/04/20 13:49 07/04/20 13:49 07/04/20 13:49 Oxygen Delivery Method Room Air Weight: 48.1 kg Body Mass Index (BMI) 19.0 Intake and Output for Last 24 Hours 07/03/20 07/04/20 07/05/20 23:59 23:59 23:59 Intake Total 2908 / 2908 1120 / 1120 Balance 2908 / 2908 1120 / 1120 Microbiology Past 72 Hours 07/04/20 12:15 Mucosa - Nasopharyngeal SARS-CoV-2 Antigen (Rapid) - Final 07/03/20 20:00 Stool C. difficile DNA Amplification - Final 07/01/20 15:30 Blood Culture (Wb) - Right Forearm Blood Culture - Preliminary No growth in 48 hours. 07/01/20 15:20 Blood Culture (Wb) - Anticubital Right Blood Culture - Preliminary No growth in 48 hours. Discharge Activity: Return to Normal Activity Weight Bearing Status: Full weight bearing Home Medications: Medications to take at Discharge biotin 5,000 mcg sublingual tablet 5,000 mcg SUBLINGUAL DAILY 11/09/19 cholecalciferol (vitamin D3) 50 mcg (2,000 unit) capsule 50 mcg PO DAILY #90 cap 04/23/20 Aspirin [Low Dose Aspirin EC] 81 mg PO DAILY@0800 07/01/20 Calcium Carb/Vitamin D [Caltrate-600 With Vit D Tab] 1 tablet PO DAILY 07/01/20 Multivitamin 1 tablet PO DAILY 07/01/20 Amox/Clavulanate Tablet [Augmentin Tablet] 875 mg PO Q12H #14 tab 07/04/20 Dicyclomine HCl [Bentyl] 20 mg PO TID PRN PRN #60 capsule 07/04/20 Following Prescriptions Were Given to Patient: Amox/Clavulanate Tablet [Augmentin Tablet] 875 mg PO Q12H #14 tab Transmission Status: Received by [employer] . Dicyclomine HCl [Bentyl] 20 mg PO TID PRN PRN #60 capsule PRN Reason: Diarrhea Transmission Status: Received by [id number] Primary Care Physician: Jennifer Klein MD [Primary Care Provider] - Please follow up with your Primary Care Physician in: in 2 weeks Please Follow Up With: Dangelo Blair MD When: in 2 weeks Disposition: Home Minutes spent on discharge:: 31 Patient Condition:: Stable Medical Necessity - Tobacco Use Smoking Status: Former smoker Meaningful Use Info Meaningful Use Diagnoses (Choose all that apply): None applicable Inpatient E&M: 30603 [facility]
== END 2020-07-04 12:54 | disposition home or self-care (01) | DRG 391 ==
LOC: ED 15:07 → MS3 15:32
PROVIDERS: Admitting Provider Student in an Organized Health Care Education/Training Program; Emergency Provider Emergency Medicine; PCP Internal Medicine; Visit Provider Internal Medicine
DX: K57.32 Diverticulitis of large intestine without perforation or abscess without bleeding (principal); E43 Unspecified severe protein-calorie malnutrition; Z68.1 Body mass index [BMI] 19.9 or less, adult; E87.6 Hypokalemia; J44.9 Chronic obstructive pulmonary disease, unspecified; K21.9 Gastro-esophageal reflux disease without esophagitis; Z88.0 Allergy status to penicillin; Z87.891 Personal history of nicotine dependence; E55.9 Vitamin D deficiency, unspecified; Z79.82 Long term (current) use of aspirin; Z66 Do not resuscitate; Z86.718 Personal history of other venous thrombosis and embolism; Z87.01 Personal history of pneumonia (recurrent); Z90.49 Acquired absence of other specified parts of digestive tract; Z90.710 Acquired absence of both cervix and uterus
CPT/HCPCS: 74177; 80048; 80053; 83605; 83690; 85025; 87040; 87426; 87493; 99284; J2185; J7030; J7120; Q9967; A4216; J2405

== ENCOUNTER → 2020-07-17 | Outpatient (CLI) | payer MEDICARE, SELFPAY ==
[2020-04-23 14:21] VITALS: BMI 19.8
[2020-07-01 16:43] VITALS: BMI 19.0
== END | disposition home or self-care (01) ==
LOC: LAB.FUTURE 09:44 → LABSPEC 09:46
PROVIDERS: PCP Internal Medicine; Referring Provider Internal Medicine Gastroenterology; Visit Provider Internal Medicine Gastroenterology
DX: R19.7 Diarrhea, unspecified (principal); R19.4 Change in bowel habit
CPT/HCPCS: 87493; 87506

== ENCOUNTER → 2020-07-23 14:56 | Outpatient (CLI) | payer MEDICARE, SELFPAY ==
[2020-07-01 16:43] VITALS: BMI 19.0
--- NOTE | 2020-07-23 15:03 | CT_ITS ---
ACR Level 3 findings have been noted. An addendum which confirms receipt of the report will follow. STUDY: CT CHEST WITH CONTRAST REASON FOR EXAM: Female, 84 years old. Lung mass RADIATION DOSAGE (If Supplied By Facility): CTDIvol = ( 10.18 ) mGy, DLP = ( 186.04 ) mGycm TECHNIQUE: Transaxial imaging was performed following intravenous administration of IV 75ML ISOVUE 370. Individualized dose optimization techniques were used for this CT. COMPARISON: PET scan April 01, 2020, CT chest December 05, 2019 FINDINGS: The visualized small nodule left thyroid measuring 6.5 mm. The visualized focus of spiculated nodularity in the anterior medial aspect of the right upper lobe measuring 4.3 x 3.1 x 1.4 cm similar to prior study. There are scattered areas of emphysematous blebs. There is no demonstrated pleural abnormality. There is mild cardiac enlargement. There is a persistent atypical appearing lymph node in the precarinal space measuring 1.9 x 1.3 cm there are several precarinal lymph nodes. This measures 1.3 cm stable since prior studies. Normal hilar regions. Normal enhanced pulmonary arteries. The ascending thoracic aorta measures 3.1 x 3.0 cm the descending thoracic aorta measures 2.5 x 2.4 cm. There is chronic appearing loss of height at the level of L1. There is visualized moderate neural foramina narrowing at the level of T12-L1. The liver is fatty infiltrated. There is a distended appearance of the inferior vena cava. There is postoperative change in the stomach partially visualized. The timing of the study there is incomplete filling of the portal vein. There is either mixing of contrast and there may be partial thrombus within the splenic confluence. There is also incomplete filling of the inferior vena cava which is thought to represent timing of the procedure. There is persistent distention of the common duct. CT/Chest WITH Contrast IMPRESSION: Pulmonary emphysema and chronic obstructive pulmonary disease, spiculated mass in the right apex which is relatively stable when compared to the prior PET scan April 01, 2020 Persistent reactive possibly metastatic lymph nodes within the mediastinum. Mixing of contrast or timing of contrast versus partial thrombus within the portal vein. Recommend follow-up Doppler ultrasound of the pam hepatis/liver. And/or consideration for a CT scan with IV contrast with a liver mass protocol would be helpful. Small left thyroid nodule could consider follow-up thyroid ultrasound when appropriate. Electronically Signed: Mariama Jimenez MD at 6:04 EDT Tel , Service support ,
== END ==
PROVIDERS: PCP Internal Medicine; Referring Provider Nurse Practitioner Acute Care; Visit Provider Nurse Practitioner Acute Care
DX: R91.8 Other nonspecific abnormal finding of lung field (principal)
CPT/HCPCS: 71260; Q9967; A4216

== ENCOUNTER → 2021-03-05 13:06 | Outpatient (CLI) | payer MEDICARE, SELFPAY | PROVIDERS: PCP Internal Medicine; Referring Provider Internal Medicine; Visit Provider Internal Medicine | DX: Z11.52 Encounter for screening for COVID-19 (principal) | CPT/HCPCS: 87635; U0005; U0003 ==

== ENCOUNTER 2021-08-16 12:37 | Emergency (ER) | payer MEDICARE, SELFPAY ==
[2021-08-16 12:38] VITALS: BP 111/97; PULSE 66; RESP 18; TEMP 36.3; O2SAT 100; BMI 18.4
--- NOTE | 2021-08-16 12:54 | EKG12_ITS ---
Test Reason : CP Blood Pressure : / mmHG Vent. Rate : 057 BPM Atrial Rate : 057 BPM P-R Int : 152 ms QRS Dur : 102 ms QT Int : 410 ms P-R-T Axes : 068 -46 014 degrees QTc Int : 399 ms Sinus bradycardia Left anterior fascicular block Abnormal ECG Confirmed by KATELYNN MARTINEZ, SIENNA ([id number]), general expeditor CORNELIO BRYSON ([id number]) on 08/20/2021 9:03:09 AM Referred By: RHIANNON Confirmed By:SIENNA PACE MD
--- NOTE | 2021-08-16 12:58 | RAD_ITS ---
STUDY: X-RAY CHEST REASON FOR EXAM: Female, 85 years old. chest pain TECHNIQUE: Single AP portable view of the chest. COMPARISON: 02/19/2021 FINDINGS: The lungs are clear and expanded. There is no demonstrated pleural abnormality. Normal size heart. Normal mediastinum and marvin. Normal visualized pulmonary arteries. Normal visualized aortic arch and descending thoracic aorta. Normal visualized thoracic spine. Normal visualized ribs, clavicles, and shoulders. There is no demonstrated abnormality of the visualized soft tissue structures of the upper abdomen. RAD/Chest 1 View (Portable) IMPRESSION: Normal x-ray examination of the chest. Electronically Signed: Simon Pearson MD at 13:10 EDT ,
[2021-08-16 13:06] LABS: Absolute Lymphocyte Count 1.79 X10^3/uL (0.83-4.51); Absolute Neutrophil Count 3.6 X10^3/uL (2.0-7.7); Basophil# 0.04 X10^3/uL; Basophil% 0.7 % (0-1); Eosinophil# 0.05 X10^3/uL; Eosinophils% 0.8 % (0-5); Hemoglobin 11.4 g/dL (12.0-15.0); Lymphocyte # 1.79 X10^3/ul (0.83-4.51); Lymphocyte % 29.2 % (19-41); Mean Corp Hgb Conc 32.6 g/dL (32-36); Mean Corpuscular Hgb 30.3 pg (27.0-32.0); Mean Corpuscular Volume 93.1 fL (81-99); Monocyte% 9.8 % (0-10); NRBC Flagged by Analyzer 0 % (0-5); Neutrophil # 3.64 X10^3/uL (2.7-7.7); Neutrophil % 59.2 % (47-70); Platelet Count 302 K/mm3 (150-450); RBC Distribution Width SD 44.2 fl (35.1-43.9); Red Blood Count 3.76 M/mm3 (4.2-5.4); White Blood Count 6.1 K/mm3 (4.4-11.0)
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
[2021-08-16 13:37] VITALS: BP 132/78; PULSE 59; RESP 18; O2SAT 97
[2021-08-16 13:47] LABS: Anion Gap 5 (5-15); BUN 12 mg/dL (7-18); Chloride 108 mmol/L (98-107); Creatinine, Serum 0.63 mg/dL (0.55-1.02); EST Glomerular Filtration Rate 96 mL/min (>60); Est Glom Filt Rate - Afr Amer 116 mL/min (>60); Estimated Creatinine Clearance 30.83 ml/min; Glucose 80 mg/dL (74-106); Potassium 3.6 mmol/L (3.5-5.1); Sodium Level 139 mmol/L (136-145); Troponin-I HS (w/2H Reflex) 5 pg/mL (3.0-54.0)
[2021-08-16 15:02] LABS: Reflex Troponin-HS? (from REC) Y
[2021-08-16 15:27] LABS: Troponin-I HS 7 pg/mL (3.0-54.0)
[2021-08-16 15:29] VITALS: RESP 16
== END 2021-08-16 15:42 | disposition home or self-care (01) ==
PROVIDERS: Emergency Provider Student in an Organized Health Care Education/Training Program; PCP Internal Medicine; Visit Provider Student in an Organized Health Care Education/Training Program
DX: S16.1XXA Strain of muscle, fascia and tendon at neck level, initial encounter (principal); R00.1 Bradycardia, unspecified; Z87.891 Personal history of nicotine dependence; R07.89 Other chest pain; K21.9 Gastro-esophageal reflux disease without esophagitis; Z79.899 Other long term (current) drug therapy; Z79.82 Long term (current) use of aspirin; F41.9 Anxiety disorder, unspecified; F32.A Depression, unspecified; X58.XXXA Exposure to other specified factors, initial encounter; Y93.89 Activity, other specified; Y99.9 Unspecified external cause status; Y92.9 Unspecified place or not applicable
CPT/HCPCS: 71045; 80048; 84484; 85025; 93005; 99283

== ENCOUNTER → 2021-12-07 | Outpatient (CLI) | payer MEDICARE, SELFPAY ==
[2021-12-07 15:28] LABS: Absolute Lymphocyte Count 1.87 X10^3/uL (0.83-4.51); Absolute Neutrophil Count 3.1 X10^3/uL (2.0-7.7); Basophil# 0.05 X10^3/uL; Basophil% 0.9 % (0-1); Eosinophil# 0.06 X10^3/uL; Eosinophils% 1.1 % (0-5); Hematocrit 38.7 % (37-47); Hemoglobin 12.1 g/dL (12.0-15.0); Lymphocyte # 1.87 X10^3/ul (0.83-4.51); Lymphocyte % 32.9 % (19-41); Mean Corp Hgb Conc 31.3 g/dL (32-36); Mean Corpuscular Hgb 29.6 pg (27.0-32.0); Mean Corpuscular Volume 94.6 fL (81-99); Mean Platelet Vol. 9.5 fl (6.2-12.0); Monocyte# 0.62 X10^3/uL; Monocyte% 10.9 % (0-10); NRBC Flagged by Analyzer 0 % (0-5); Neutrophil # 3.07 X10^3/uL (2.7-7.7); Platelet Count 365 K/mm3 (150-450); RBC Distribution Width CV 12.9 % (11.6-14.6); RBC Distribution Width SD 44.6 fl (35.1-43.9); Red Blood Count 4.09 M/mm3 (4.2-5.4); White Blood Count 5.7 K/mm3 (4.4-11.0)
[2021-12-07 15:44] LABS: AST(SGOT) 22 U/L (15-37); Alanine Aminotransfer ALT/SGPT 26 U/L (13-56); Albumin, Serum 3.4 g/dL (3.2-5.0); Alkaline Phosphatase 83 U/L (45-117); Anion Gap 8 (5-15); BUN 11 mg/dL (7-18); BUN/Creat Ratio 17.6 RATIO (10-20); Calcium,Total 8.5 mg/dL (8.5-10.1); Chloride 105 mmol/L (98-107); Creatinine, Serum 0.62 mg/dL (0.55-1.02); EST Glomerular Filtration Rate 97 mL/min (>60); Est Glom Filt Rate - Afr Amer 117 mL/min (>60); Ferritin 27 ng/mL (8-252); Globulin 3.3 g/dL (2.2-4.2); Glucose 86 mg/dL (74-106); Iron 77 ug/dL (50-170); Iron Binding Capacity,Total 357 ug/dL (250-450); Potassium 3.6 mmol/L (3.5-5.1); Protein, Total 6.7 g/dL (6.4-8.2); Sodium Level 142 mmol/L (136-145)
== END | disposition home or self-care (01) ==
LOC: BIMLAB 11:48
PROVIDERS: PCP Internal Medicine; Visit Provider Physician Assistant
DX: R42 Dizziness and giddiness (principal); E43 Unspecified severe protein-calorie malnutrition; K92.1 Melena
CPT/HCPCS: 36415; 80053; 82274; 82728; 83540; 83550; 85025

== ENCOUNTER → 2022-02-22 | Outpatient (CLI) | payer MEDICARE, SELFPAY ==
[2022-02-22 11:04] LABS: Absolute Lymphocyte Count 1.89 X10^3/uL (0.83-4.51); Absolute Neutrophil Count 2.9 X10^3/uL (2.0-7.7); Basophil# 0.04 X10^3/uL; Basophil% 0.7 % (0-1); Eosinophil# 0.11 X10^3/uL; Eosinophils% 1.9 % (0-5); Hemoglobin 10.9 g/dL (12.0-15.0); Lymphocyte # 1.89 X10^3/ul (0.83-4.51); Mean Corp Hgb Conc 31.1 g/dL (32-36); Mean Corpuscular Hgb 29.1 pg (27.0-32.0); Mean Corpuscular Volume 93.6 fL (81-99); Mean Platelet Vol. 9.2 fl (6.2-12.0); Monocyte# 0.97 X10^3/uL; Monocyte% 16.4 % (0-10); NRBC Flagged by Analyzer 0 % (0-5); Neutrophil # 2.87 X10^3/uL (2.7-7.7); Neutrophil % 48.7 % (47-70); Platelet Count 295 K/mm3 (150-450); RBC Distribution Width CV 13.2 % (11.6-14.6); RBC Distribution Width SD 45.3 fl (35.1-43.9); Red Blood Count 3.74 M/mm3 (4.2-5.4); White Blood Count 5.9 K/mm3 (4.4-11.0)
[2022-02-22 11:32] LABS: Vitamin D,25 Hydroxy 21.3 ng/mL
[2022-02-22 11:40] LABS: ALB/GLOB Ratio 1.1 RATIO (0.9-2.4); AST(SGOT) 16 U/L (15-37); Alanine Aminotransfer ALT/SGPT 23 U/L (13-56); Albumin, Serum 3.6 g/dL (3.2-5.0); Alkaline Phosphatase 88 U/L (45-117); Anion Gap 3 (5-15); BUN 13 mg/dL (7-18); BUN/Creat Ratio 20.2 RATIO (10-20); Calcium,Total 8.9 mg/dL (8.5-10.1); Chloride 106 mmol/L (98-107); Creatinine, Serum 0.64 mg/dL (0.55-1.02); EST Glomerular Filtration Rate 94 mL/min (>60); Est Glom Filt Rate - Afr Amer 113 mL/min (>60); Globulin 3.2 g/dL (2.2-4.2); Glucose 87 mg/dL (74-106); Lipase 45 U/L (73-393); Magnesium 1.9 mg/dL (1.6-2.6); Potassium 3.9 mmol/L (3.5-5.1); Protein, Total 6.8 g/dL (6.4-8.2); Sodium Level 141 mmol/L (136-145); T4 Free Direct 0.99 ng/dL (0.76-1.46); Thyroid Stim Hormone (TSH) 3.56 uIU/mL (0.358-3.74)
== END | disposition home or self-care (01) ==
LOC: LAB 10:23
PROVIDERS: PCP Internal Medicine; Referring Provider Internal Medicine; Visit Provider Internal Medicine
DX: E43 Unspecified severe protein-calorie malnutrition (principal); R10.10 Upper abdominal pain, unspecified; M81.0 Age-related osteoporosis without current pathological fracture; E56.9 Vitamin deficiency, unspecified; K21.9 Gastro-esophageal reflux disease without esophagitis; K86.89 Other specified diseases of pancreas
CPT/HCPCS: 36415; 80053; 82306; 83690; 83735; 84439; 84443; 84481; 85025

== ENCOUNTER 2022-02-25 11:27 | Emergency (ER) | payer MEDICARE, SELFPAY ==
[2022-02-25 11:28] VITALS: BP 121/84; PULSE 81; RESP 18; TEMP 35.9; O2SAT 97; BMI 18.8
--- NOTE | 2022-02-25 11:48 | EKG12_ITS ---
Test Reason : Blood Pressure : / mmHG Vent. Rate : 060 BPM Atrial Rate : 060 BPM P-R Int : 150 ms QRS Dur : 130 ms QT Int : 444 ms P-R-T Axes : 069 -45 011 degrees QTc Int : 444 ms Normal sinus rhythm Right bundle branch block Left anterior fascicular block Bifascicular block Minimal voltage criteria for LVH, may be normal variant ( R in aVL ) Abnormal ECG Confirmed by SRIRAM MARTINEZ, CHARLEEN ([id number]), managing editor CORNELIO BRYSON ([id number]) on 02/26/2022 11:00:39 AM Referred By: Confirmed By:CHARLEEN BHATIA MD
--- NOTE | 2022-02-25 11:49 | VDLE_ITS ---
Reason For Study: pain RIGHT LEFT CFV is compressible, spontaneous, competent GSV is normal. and demonstrates pulsatile venous flow. CFV is compressible, spontaneous, phasic, Procedure competent, and demonstrates normal This is a venous duplex using B-mode, color augmentation. flow and spectral Doppler. FV is compressible, spontaneous, phasic, Exam performed portable in ED. competent and demonstrates normal The exam was diagnostic. augmentation. A preliminary report was called and/or faxed POP V is compressible, spontaneous, phasic, to Dr. Conti. competent and demonstrates normal augmentation. T/P Trunk is compressible. PTV is compressible. LT PerV is compressible. Soleus V is dilated and noncompressible. VL/Venous Duplex US, Unilateral Interpretation Summary Acute deep vein thrombosis is noted in the left soleus vein. The remainder of t he left lower extremity deep venous system is patent and compressible. Valvular competence ap pears intact within the proximal deep venous system on the left . The left great saphenous vein tavon ears patent and compressible segmentally. Ordering Physician: Armond Conti Performed By: Andrew Pinto, RVT
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
[2022-02-25 12:42] LABS: Absolute Neutrophil Count 3.5 X10^3/uL (2.0-7.7); Basophil# 0.05 X10^3/uL; Basophil% 0.8 % (0-1); Eosinophil# 0.09 X10^3/uL; Eosinophils% 1.5 % (0-5); Hematocrit 35.5 % (37-47); Hemoglobin 11.3 g/dL (12.0-15.0); Lymphocyte % 25.4 % (19-41); Mean Corp Hgb Conc 31.8 g/dL (32-36); Mean Corpuscular Hgb 29.4 pg (27.0-32.0); Mean Corpuscular Volume 92.4 fL (81-99); Mean Platelet Vol. 9.2 fl (6.2-12.0); Monocyte# 0.75 X10^3/uL; Monocyte% 12.7 % (0-10); NRBC Flagged by Analyzer 0 % (0-5); Neutrophil # 3.49 X10^3/uL (2.7-7.7); Neutrophil % 59.3 % (47-70); Platelet Count 288 K/mm3 (150-450); RBC Distribution Width CV 13.2 % (11.6-14.6); RBC Distribution Width SD 45.1 fl (35.1-43.9); Red Blood Count 3.84 M/mm3 (4.2-5.4); White Blood Count 5.9 K/mm3 (4.4-11.0)
--- NOTE | 2022-02-25 12:52 | RAD_ITS ---
STUDY: X-RAY CHEST REASON FOR EXAM: Female, 86 years old. Chest pain TECHNIQUE: Single AP portable view of the chest. COMPARISON: Comparison is made with prior study dated 08/16/2021. FINDINGS: EKG are seen. Hyperinflation. The lungs are clear. There is no demonstrated pleural abnormality. Normal size heart. Normal mediastinum and marvin. Normal visualized pulmonary arteries. There is atherosclerotic calcification of the aortic arch with tortuosity. Normal visualized thoracic spine. Normal visualized ribs, clavicles, and shoulders. There is no demonstrated abnormality of the visualized soft tissue structures of the upper abdomen. RAD/Chest PA and Lateral IMPRESSION: Hyperinflation. The lungs are clear. Electronically Signed: Asher Meng MD at 13:47 EST ,
[2022-02-25 13:02] LABS: Anion Gap 4 (5-15); BUN 14 mg/dL (7-18); BUN/Creat Ratio 22.9 RATIO (10-20); Calcium,Total 9.1 mg/dL (8.5-10.1); Chloride 107 mmol/L (98-107); Creatinine, Serum 0.61 mg/dL (0.55-1.02); EST Glomerular Filtration Rate 99 mL/min (>60); Est Glom Filt Rate - Afr Amer 120 mL/min (>60); Estimated Creatinine Clearance 30.89 ml/min; Glucose 85 mg/dL (74-106); Sodium Level 139 mmol/L (136-145); Troponin-I HS (w/2H Reflex) 7 pg/mL (3.0-54.0)
[2022-02-25 14:38] LABS: Reflex Troponin-HS? (from REC) Y
[2022-02-25] MEDS: APIXABAN 5 MG TABLET 10 MG PO (14:38)
[2022-02-25 15:06] LABS: Troponin-I HS 7 pg/mL (3.0-54.0)
[2022-02-25 15:28] VITALS: BP 121/68; PULSE 71; RESP 20; TEMP 36.6; O2SAT 98
[2022-02-25 15:35] VITALS: BP 121/68; PULSE 84; RESP 16; TEMP 36.7; O2SAT 98
== END 2022-02-25 15:56 | disposition home or self-care (01) ==
PROVIDERS: Emergency Provider Emergency Medicine; PCP Internal Medicine; Visit Provider Emergency Medicine
DX: I82.402 Acute embolism and thrombosis of unspecified deep veins of left lower extremity (principal); R07.9 Chest pain, unspecified; Z87.891 Personal history of nicotine dependence; Z79.82 Long term (current) use of aspirin; Z79.01 Long term (current) use of anticoagulants; Z79.899 Other long term (current) drug therapy
CPT/HCPCS: 71046; 80048; 84484; 85025; 93005; 93971; 99284; A4216

== ENCOUNTER 2022-02-27 15:30 | Emergency (ER) | payer MEDICARE, SELFPAY ==
[2022-02-27 15:30] VITALS: BP 127/56; PULSE 87; RESP 16; TEMP 37.1; O2SAT 94; BMI 18.8
--- NOTE | 2022-02-27 16:39 | ED.RN ---
PATIENT STATES THAT SHE WILL JUST GO SEE DOCTOR ON TUESDAY. PATIENT STATES MY DAUGHTER MADE ME COME GET SEEN ANYHOW.
== END 2022-02-27 16:38 | disposition left against medical advice (07) ==
LOC: ED 16:49
PROVIDERS: PCP Internal Medicine
DX: Z53.21 Procedure and treatment not carried out due to patient leaving prior to being seen by health care provider (principal)

== ENCOUNTER 2022-03-09 12:29 | Emergency (ER) | payer MEDICARE, SELFPAY ==
[2022-03-09 12:31] VITALS: BP 122/99; PULSE 76; RESP 16; TEMP 36.6; O2SAT 100; BMI 18.9
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
== END 2022-03-09 13:18 | disposition home or self-care (01) ==
LOC: ED 12:58
PROVIDERS: Emergency Provider Emergency Medicine; PCP Internal Medicine; Visit Provider Emergency Medicine
DX: M79.604 Pain in right leg (principal); Z87.891 Personal history of nicotine dependence; M79.605 Pain in left leg; Z86.718 Personal history of other venous thrombosis and embolism; Z79.01 Long term (current) use of anticoagulants
CPT/HCPCS: 99282

== ENCOUNTER → 2022-03-10 | Outpatient (CLI) | payer MEDICARE, SELFPAY ==
[2022-03-10 15:39] LABS: Erythrocyte Sedimentation Rate 8 mm/hr (0-30)
[2022-03-10 15:42] LABS: Hematocrit 34.9 % (37-47); Hemoglobin 11.4 g/dL (12.0-15.0); Mean Corp Hgb Conc 32.7 g/dL (32-36); Mean Corpuscular Hgb 30.7 pg (27.0-32.0); Mean Corpuscular Volume 94.1 fL (81-99); Mean Platelet Vol. 9.2 fl (6.2-12.0); Platelet Count 351 K/mm3 (150-450); RBC Distribution Width CV 13.6 % (11.6-14.6); RBC Distribution Width SD 46.9 fl (35.1-43.9); Red Blood Count 3.71 M/mm3 (4.2-5.4); White Blood Count 6.5 K/mm3 (4.4-11.0)
[2022-03-10 15:55] LABS: CRP < 2.90 mg/L (0.0-3.0)
== END | disposition home or self-care (01) ==
LOC: LAB 14:34
PROVIDERS: PCP Internal Medicine; Referring Provider Ophthalmology; Visit Provider Ophthalmology
DX: R51.9 Headache, unspecified (principal)
CPT/HCPCS: 36415; 85027; 85652; 86140

== ENCOUNTER → 2022-04-09 | Outpatient (CLI) | payer MEDICARE, SELFPAY ==
--- NOTE | 2022-04-09 13:15 | VDLE_ITS ---
Reason For Study: Chest pain RIGHT LEFT GSV is normal. GSV is normal. CFV is compressible, spontaneous, phasic, CFV is compressible, spontaneous, phasic, competent and demonstrates normal competent, and demonstrates normal augmentation. augmentation. FV is compressible, spontaneous, phasic, FV is compressible, spontaneous, phasic, competent and demonstrates normal competent and demonstrates normal augmentation. augmentation. POP V is compressible, spontaneous, phasic, POP V is compressible, spontaneous, phasic, competent and demonstrates normal competent and demonstrates normal augmentation. augmentation. T/P Trunk is compressible. T/P Trunk is compressible. PTV is compressible. PTV is compressible. RT PerV is compressible. LT PerV is compressible. Procedure SoleusV is compressible. This is a venous duplex using B-mode, color flow and spectral Doppler. Exam performed in department. Compared to 02/25/2022. A preliminary report was called and/or faxed to Ernie. VL/Venous Duplex US - [place] Extrem Interpretation Summary No evidence for acute deep venous thrombosis bilaterally Previously ablated right great saphenous vein Patent and compressible left great saphenous vein Ordering Physician: Jennifer Klein Referring Physician: Jennifer Klein Performed By: Isabel Rodriguez RVT
== END | disposition home or self-care (01) ==
PROVIDERS: PCP Internal Medicine; Referring Provider Internal Medicine; Visit Provider Internal Medicine
DX: R07.9 Chest pain, unspecified (principal)
CPT/HCPCS: 93970

== ENCOUNTER → 2022-04-13 | Outpatient (CLI) | payer MEDICARE, SELFPAY ==
--- NOTE | 2022-04-13 14:03 | CT_ITS ---
EXAM: CT ANGIOGRAPHY CHEST WITHOUT AND WITH INTRAVENOUS CONTRAST CLINICAL INDICATION: History blood clot leg, chest pains TECHNIQUE: Helically acquired angiography images were obtained of the chest without and with intravenous contrast. This CT exam was performed using one or more of the following dose reduction techniques: automated exposure control, adjustment of the mA and/or kV according to patient size, and/or use of iterative reconstruction technique. This report was created using [employer] report generation technology. MIP reconstructed images were created and reviewed. CONTRAST: IV 75mL [id number] RADIATION DOSE: CTDIvol = 4.14 mGy, DLP = 122.74 mGy-cm COMPARISON: 5.12.21 FINDINGS: PULMONARY ARTERIES: Unremarkable. No demonstrated pulmonary embolism or arterial dissection. AORTA: There is atherosclerotic calcification of the aortic arch with tortuosity and elongation of the aortic arch and descending thoracic aorta. Normal in caliber. No evidence of dissection. GREAT VESSELS OF AORTIC ARCH: See above. LUNGS AND PLEURAL SPACES: 45 x 25 x 14mm mass in the right upper lobe. This extends to the pleural surface. Se 2 IM: 174. There are scattered blebs and bullae. This can be seen in pulmonary emphysema. No pneumothorax. HEART: There are calcifications of the coronary arteries. No pericardial effusion. No signs of right heart strain, ratio of right ventricle to left ventricle measures less than 1. MEDIASTINUM: See below. THYROID: Unremarkable. No thyroid lesions. BONES/JOINTS: There are degenerative changes of the shoulders. There are multi-level degenerative changes of the thoracic spine. No suspicious lytic or blastic abnormality. LYMPH NODES: Stable lymph node in the precarinal space measuring 1.8x 1.3 cm. STOMACH AND BOWEL: Prior gastric surgery. OTHER FINDINGS: Stable L1 compression deformity. CT/CTA Chest W/WO Contrast IMPRESSION: 1. No demonstrated pulmonary embolism or arterial dissection. 2. Stable right upper lobe mass like lesion. No follow-up is necessary for patients with low or high risk of malignancy. Electronically Signed: Ruben Franks MD at 15:26 EST ,
[2022-04-13 14:35] LABS: CREATININE FINGERSTICK < 0.9 mg/dL (0.55-1.02); EGFR FINGERSTICK > 60.0000 mL/min (>60)
== END | disposition home or self-care (01) ==
LOC: CT 14:02
PROVIDERS: PCP Internal Medicine; Referring Provider Internal Medicine; Visit Provider Internal Medicine
DX: I25.10 Atherosclerotic heart disease of native coronary artery without angina pectoris (principal); I82.409 Acute embolism and thrombosis of unspecified deep veins of unspecified lower extremity; I70.0 Atherosclerosis of aorta; I77.1 Stricture of artery; R91.8 Other nonspecific abnormal finding of lung field; R07.9 Chest pain, unspecified; M19.011 Primary osteoarthritis, right shoulder; M19.012 Primary osteoarthritis, left shoulder
CPT/HCPCS: 71275; Q9967

== ENCOUNTER → 2022-04-28 | Outpatient (CLI) | payer MEDICARE, SELFPAY ==
[2022-04-28 15:16] LABS: AST(SGOT) 20 U/L (15-37); Alanine Aminotransfer ALT/SGPT 21 U/L (13-56); Albumin, Serum 3.4 g/dL (3.2-5.0); Alkaline Phosphatase 90 U/L (45-117); Amylase 42 U/L (25-115); Bilirubin, Direct 0.11 mg/dL (0.00-0.30); Globulin 3.2 g/dL (2.2-4.2); Lipase 48 U/L (73-393); Protein, Total 6.6 g/dL (6.4-8.2)
== END | disposition home or self-care (01) ==
LOC: LAB 13:50
PROVIDERS: PCP Internal Medicine; Visit Provider Internal Medicine
DX: K57.92 Diverticulitis of intestine, part unspecified, without perforation or abscess without bleeding (principal); R19.7 Diarrhea, unspecified; E56.9 Vitamin deficiency, unspecified
CPT/HCPCS: 36415; 80076; 82150; 83690

== ENCOUNTER 2022-05-01 14:16 | Emergency (ER) | payer MEDICARE, SELFPAY ==
[2022-05-01 14:16] VITALS: BP 98/69; PULSE 77; RESP 16; TEMP 35.6; O2SAT 98; BMI 18.8
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
--- NOTE | 2022-05-01 15:15 | RAD_ITS ---
INDICATION: fall EXAMINATION/TECHNIQUE: X-RAY - RIGHT XR Forearm 2 Views 2 VIEWS COMPARISON: None. FINDINGS: SOFT TISSUES: No soft tissue swelling or gas. No radiopaque foreign body. BONES/JOINTS: No acute fracture or subluxation.. Normal alignment. Preservation of the joint space.. No sclerotic or destructive changes observed. RAD/Forearm 2 Views IMPRESSION: Negative. Electronically Signed: Ruben Franks MD at 15:35 EST ,
--- NOTE | 2022-05-01 15:15 | RAD_ITS ---
INDICATION: fall EXAMINATION/TECHNIQUE: X-RAY - LEFT XR Knee 1 or 2 Views 2 VIEWS COMPARISON: None. FINDINGS: SOFT TISSUES: No soft tissue swelling or gas. No radiopaque foreign body. BONES/JOINTS: No acute fracture or subluxation.. Normal alignment. Preservation of the joint space.. No sclerotic or destructive changes observed. RAD/Knee 4 or More Views IMPRESSION: Negative. Electronically Signed: Ruben Franks MD at 15:36 EST ,
--- NOTE | 2022-05-01 15:31 | CT_ITS ---
STUDY: CT BRAIN WITHOUT CONTRAST REASON FOR EXAM: Female, 86 years old. head trauma Individualized dose optimization techniques were used for this CT. TECHNIQUE: Transaxial CT imaging of the brain was performed without administration of intravenous contrast material. COMPARISON: 2.8.17 FINDINGS: There are calcifications around the carotid artery. These are noted in the cavernous carotid arteries. Normal calvarium. Normal soft tissues. There is mild cerebral atrophy with widening of the extra-axial spaces and ventricular dilatation. There are areas of decreased attenuation within the white matter tracts of the supratentorial brain, consistent with microvascular disease changes. Normal basal ganglia and thalami. Normal brainstem. There is mild cerebellar atrophy. There is no intracranial hemorrhage. There are no findings of an acute ischemic infarction. Degenerative changes of the mandibular condyles. ASPECTS Score for Acute Strokes: 10/10 CT/Brain/Head without Contrast IMPRESSION: There are no acute findings. Chronic involutional changes of the brain. Electronically Signed: Ruben Franks MD at 16:40 EST ,
[2022-05-01 15:37] VITALS: BP 127/70; PULSE 59; RESP 17; O2SAT 97
[2022-05-01 17:16] VITALS: PULSE 59; O2SAT 94
== END 2022-05-01 17:17 | disposition home or self-care (01) ==
PROVIDERS: Emergency Provider Emergency Medicine; PCP Internal Medicine; Visit Provider Emergency Medicine
DX: S09.90XA Unspecified injury of head, initial encounter (principal); W18.30XA Fall on same level, unspecified, initial encounter; S80.02XA Contusion of left knee, initial encounter; Z87.891 Personal history of nicotine dependence; S51.801A Unspecified open wound of right forearm, initial encounter; Z86.718 Personal history of other venous thrombosis and embolism
CPT/HCPCS: 70450; 73090; 73564; 99284

== ENCOUNTER → 2022-05-07 | Outpatient (CLI) | payer MEDICARE, SELFPAY | END | disposition home or self-care (01) | LOC: LABSPEC 13:02 | PROVIDERS: PCP Internal Medicine; Visit Provider Internal Medicine | DX: K57.92 Diverticulitis of intestine, part unspecified, without perforation or abscess without bleeding (principal); R19.7 Diarrhea, unspecified; E56.9 Vitamin deficiency, unspecified; K58.9 Irritable bowel syndrome, unspecified | CPT/HCPCS: 87493; 87506 ==

== ENCOUNTER → 2022-05-10 | Outpatient (CLI) | payer MEDICARE, SELFPAY | END | disposition home or self-care (01) | PROVIDERS: PCP Internal Medicine; Visit Provider Internal Medicine | DX: K58.9 Irritable bowel syndrome, unspecified (principal); R19.7 Diarrhea, unspecified | CPT/HCPCS: 87493 ==

== ENCOUNTER 2022-09-29 19:54 | Emergency (ER) | payer MEDICARE, SELFPAY ==
[2022-09-29 19:55] VITALS: BP 167/83; PULSE 81; RESP 16; TEMP 36.6; O2SAT 98; BMI 40.5
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
[2022-09-29] MEDS: 0.9% Normal Saline 1,000 ML 1000 ML IV (20:32)
[2022-09-29 20:42] LABS: Absolute Lymphocyte Count 1.94 X10^3/uL (0.83-4.51); Absolute Neutrophil Count 2.8 X10^3/uL (2.0-7.7); Basophil# 0.04 X10^3/uL; Basophil% 0.7 % (0-1); Eosinophil# 0.09 X10^3/uL; Eosinophils% 1.6 % (0-5); Hematocrit 32.2 % (37-47); Lymphocyte # 1.94 X10^3/ul (0.83-4.51); Lymphocyte % 35.1 % (19-41); Mean Corp Hgb Conc 31.1 g/dL (32-36); Mean Corpuscular Hgb 29.4 pg (27.0-32.0); Mean Corpuscular Volume 94.7 fL (81-99); Mean Platelet Vol. 8.9 fl (6.2-12.0); Monocyte% 12.7 % (0-10); NRBC Flagged by Analyzer 0 % (0-5); Neutrophil # 2.75 X10^3/uL (2.7-7.7); Neutrophil % 49.7 % (47-70); Platelet Count 288 K/mm3 (150-450); RBC Distribution Width CV 13.9 % (11.6-14.6); RBC Distribution Width SD 47.8 fl (35.1-43.9); White Blood Count 5.5 K/mm3 (4.4-11.0)
[2022-09-29 21:06] LABS: AST(SGOT) 20 U/L (15-37); Alanine Aminotransfer ALT/SGPT 22 U/L (13-56); Albumin, Serum 3.1 g/dL (3.2-5.0); Alkaline Phosphatase 83 U/L (45-117); Anion Gap 4 (5-15); BUN 17 mg/dL (7-18); BUN/Creat Ratio 30.8 RATIO (10-20); Bilirubin, Direct 0.09 mg/dL (0.00-0.30); Calcium,Total 8.2 mg/dL (8.5-10.1); Chloride 111 mmol/L (98-107); Creatinine, Serum 0.55 mg/dL (0.55-1.02); EST Glomerular Filtration Rate 111 mL/min (>60); Est Glom Filt Rate - Afr Amer 135 mL/min (>60); Estimated Creatinine Clearance 33.12 ml/min; Glucose 91 mg/dL (74-106); Potassium 3.5 mmol/L (3.5-5.1); Protein, Total 6.1 g/dL (6.4-8.2); Sodium Level 142 mmol/L (136-145)
== END 2022-09-29 21:45 | disposition home or self-care (01) ==
PROVIDERS: Emergency Provider Emergency Medicine; PCP Internal Medicine; Visit Provider Emergency Medicine
DX: R53.1 Weakness (principal); E86.0 Dehydration; Z87.891 Personal history of nicotine dependence; K52.9 Noninfective gastroenteritis and colitis, unspecified; Z86.718 Personal history of other venous thrombosis and embolism; Z79.82 Long term (current) use of aspirin
CPT/HCPCS: 80048; 80076; 85025; 96360; 99283; J7030; A4216

== ENCOUNTER 2022-09-30 15:25 | Observation (INO) | payer MEDICARE, SELFPAY ==
[2022-09-30 15:29] VITALS: BP 137/77; PULSE 74; RESP 16; TEMP 36.6; O2SAT 97; BMI 18.8
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
--- NOTE | 2022-09-30 16:20 | CT_ITS ---
EXAM: CT ANGIOGRAPHY HEAD AND NECK WITH INTRAVENOUS CONTRAST CLINICAL INDICATION: ataxia TECHNIQUE: [place]/head and neck CT angiography protocol performed with intravenous contrast. This CT exam was performed using one or more of the following dose reduction techniques: automated exposure control, adjustment of the mA and/or kV according to patient size, and/or use of iterative reconstruction technique. MIP reconstructed images were created and reviewed. CONTRAST: IV 100mL [id number] COMPARISON: No relevant prior studies available. FINDINGS: HEAD: RIGHT ANTERIOR CEREBRAL ARTERY: Unremarkable. No significant stenosis at the visualized segments. Anterior communicating artery is present. No aneurysm. RIGHT MIDDLE CEREBRAL ARTERY: Unremarkable. No significant stenosis at the visualized segments. No aneurysm. RIGHT POSTERIOR CEREBRAL ARTERY: Unremarkable. No occlusion or significant stenosis. No aneurysm. RIGHT INTRACRANIAL INTERNAL CAROTID ARTERY: Unremarkable. No significant stenosis. No dissection or occlusion. RIGHT INTRACRANIAL VERTEBRAL ARTERY: Unremarkable. No significant stenosis. No dissection or occlusion. LEFT ANTERIOR CEREBRAL ARTERY: Unremarkable. No significant stenosis at the visualized segments. No aneurysm. LEFT MIDDLE CEREBRAL ARTERY: Unremarkable. No significant stenosis at the visualized segments. No aneurysm. LEFT POSTERIOR CEREBRAL ARTERY: Unremarkable. No occlusion or significant stenosis. No aneurysm. LEFT INTRACRANIAL INTERNAL CAROTID ARTERY: Unremarkable. No significant stenosis. No dissection or occlusion. LEFT INTRACRANIAL VERTEBRAL ARTERY: Unremarkable. No significant stenosis. No dissection or occlusion. BASILAR ARTERY: Unremarkable. No significant stenosis. No aneurysm. OTHER VASCULATURE: No vascular malformation. NECK: RIGHT COMMON CAROTID ARTERY: Unremarkable. No significant stenosis. No dissection or occlusion. RIGHT EXTRACRANIAL INTERNAL CAROTID ARTERY: Unremarkable. No significant stenosis. No dissection or occlusion. RIGHT EXTERNAL CAROTID ARTERY: Unremarkable. No occlusion. RIGHT EXTRACRANIAL VERTEBRAL ARTERY: Unremarkable. No significant stenosis. No dissection or occlusion. LEFT COMMON CAROTID ARTERY: Unremarkable. No significant stenosis. No dissection or occlusion. LEFT EXTRACRANIAL INTERNAL CAROTID ARTERY: Unremarkable. No significant stenosis. No dissection or occlusion. LEFT EXTERNAL CAROTID ARTERY: Unremarkable. No occlusion. LEFT EXTRACRANIAL VERTEBRAL ARTERY: Unremarkable. No significant stenosis. No dissection or occlusion. BRACHIOCEPHALIC AND SUBCLAVIAN ARTERIES: Unremarkable as visualized. No occlusion or significant stenosis. LUNG APICES: Unremarkable as visualized. HEAD and NECK: BONES/JOINTS: Unremarkable. No discrete lytic or blastic abnormalities. SOFT TISSUES: Unremarkable. CAROTID STENOSIS REFERENCE USING NASCET CRITERIA: % ICA stenosis = (1 - narrowest ICA diameter/diameter of distal cervical ICA) x 100. Mild - <50% stenosis. Moderate - 50-69% stenosis. Severe - 70-94% stenosis. Near occlusion - 95-99% stenosis. Occluded - 100% stenosis. CT/CTA Head AND Neck W/ Contrast IMPRESSION: Negative CTA carotid and CTA brain. Electronically Signed: Nestor Orlando MD at 17:08 EDT ,
--- NOTE | 2022-09-30 17:27 | NURSING ---
MED SURG OBS TAYLER MISHRAEADY GAIT
[2022-09-30 17:30] VITALS: BMI 18.8
--- NOTE | 2022-09-30 18:15 | RAD_ITS ---
EXAM: XR ABDOMEN, 1 VIEW CLINICAL INDICATION: Stroke TECHNIQUE: Frontal supine view of the abdomen/pelvis. COMPARISON: No relevant prior studies available. FINDINGS: LOWER THORAX: There are surgical clips and sutures at the gastroesophageal junction. GASTROINTESTINAL TRACT: Unremarkable. Non-obstructive. No bowel or stomach distention. ORGANS: Is contrast within the collecting systems and bladder. No organomegaly. No abnormal calcifications. BONES/JOINTS: There is a total right hip prosthesis. SOFT TISSUES: No acute pathology. RAD/Abdomen Single View IMPRESSION: No acute findings. Electronically Signed: Nestor Orlando MD at 18:49 EDT ,
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
[2022-09-30 18:26] VITALS: BP 165/97; PULSE 77; RESP 14; TEMP 36.4; O2SAT 96
[2022-09-30 19:25] VITALS: BP 169/89; PULSE 62; RESP 18; TEMP 36.6; O2SAT 96
[2022-09-30 19:36] LABS: Vitamin B12 252 pg/mL (211-911); Vitamin D,25 Hydroxy 35.7 ng/mL
[2022-09-30 19:40] VITALS: BMI 18.0
[2022-09-30] MEDS: Acetaminophen 325 MG Tablet 650 MG PO (19:51)
[2022-10-01] MEDS: Creon 3,000 unit DR Capsule 1 CAP PO ×3 (06:28→16:23)
[2022-10-01 06:29] VITALS: BP 166/66; PULSE 75; RESP 18; TEMP 36.9; O2SAT 95
[2022-10-01] MEDS: Acetaminophen 325 MG Tablet 650 MG PO (06:36)
[2022-10-01] MEDS: Escitalopram Oxalate 10 MG Tablet 5 MG PO (08:13)
[2022-10-01] MEDS: Aspirin E.C. 81 MG Tablet PO (08:13)
[2022-10-01] MEDS: Enoxaparin 40 MG/0.4 ML Syringe SC (08:14)
[2022-10-01] MEDS: Ensure Plus High Protein 120 ML LIQUID PO ×3 (08:14→16:23)
--- NOTE | 2022-10-01 09:55 | MRI_ITS ---
HISTORY: ataxia. TECHNIQUE: Multiplanar and multisequence MR images of the brain were obtained before and after the intravenous administration of 9 mL Clariscan. 331 images. COMPARISON: CT 05/01/2022. FINDINGS: BRAIN PARENCHYMA: Small focus of restricted diffusion in the left frontal cortex. Multiple foci and small zones of increased T2 FLAIR signal in the bilateral cerebral white matter. No acute intracranial hemorrhage identified. No enhancing mass. CSF SPACES: Generalized volume loss. No significant midline shift or other mass effect.No extra-axial fluid collection. VASCULAR SYSTEM: Major intracranial flow voids are maintained. PARANASAL SINUSES AND MASTOID AIR CELLS: Trace fluid in the mastoid air cells. ORBITS: Bilateral lens resections. MRI/Brain W/WO Contrast IMPRESSION: Small acute left frontal cortical infarct. Mild chronic involutional and white matter changes. No evidence for enhancing intracranial mass. Electronically Signed: Luisa Guadalupe MD at 11:56 EDT ,
[2022-10-01 10:47] VITALS: BP 120/81; PULSE 86; RESP 18; TEMP 36.6; O2SAT 97
--- NOTE | 2022-10-01 11:30 | CASEMGMT ---
Discharge Planning HH list created and given to RN VANDANA. Emma Frausto, Discharge Planning Asst.
--- NOTE | 2022-10-01 12:05 | CASEMGMT ---
Addendum entered by Amaris Sorensen 10/01/22 16:05: Delivered FWW to pt room, pt in restroom and asked dtr to sign consignment form. Signed and uploaded to [employer] via [employer]. Addendum entered by Amaris Sorensen 10/01/22 15:55: Pt aware of [facility] acceptance. FWW to be delivered by [employer] and pt to sign consignment form once delivered. Green sheet on chart for this. Addendum entered by Amaris Sorensen 10/01/22 15:07: 1443- Received acceptance from Madalyn at [facility] for SOC on Tuesday. 1450- Referral sent to [facility] for FWW as size pt needs not in stock. Referral sent via [facility]port. Addendum entered by Amaris Sorensen 10/01/22 13:24: RN VANDANA into pt room, pt speaking to dtr Joi and asked this RN CM to speak with her. Made her aware of the FWW and [facility]. She states she would like [facility]. Pt is agreeable to this. [employer] is preferred provider for DME after a verbal local in network list was given. TC to Madalyn at [facility], referral made, she will call back with decision to accept. Director Visual notified of need for FWW. Original Note: CHANTELL ROSS Assessment: Face to Face with pt for initial transition planning/care coordination assessment. CHANTELL ROSS introduced self and role at [facility], pt voices understanding and consents to assessment. Pt is A/O x4 and answers all questions appropriately at this time. Pt sitting up in chair in no distress. Care providers, pharmacy, and demographics verified/updated. Admitting Dx: unsteadiness of gait PCP:Ernie Specialists:Pt denies Preferred Pharmacy:[facility] Insurance: [facility] Prescription Benefit: yes LNOK: Joi Mckeon dtr; Silvia Cisneros dtr Living Arrangements: Pt lives alone but son and his girlfriend and son are staying with patient. Pt son now is in [place] for cataract surgery but may be home today. Pt reports she bathes and dresses herself and her family provides groceries, meals and does laundry. Pt denies concerns at home. Transportation: Pt reports she was driving but does not now have a car. Pt dtr Joi provides transportation. DME/HHC/SNF: Pt has a walk in shower, straight cane at home that she does not use. Pt has been using a FWW in the hospital and pt states she would be agreeable to using a FWW at home even though she is not using the cane. She states her dtr Joi was working on getting her one. She gave permission for this RN CM to call Joi. TC to Joi, no answer and vm was full. Pt states she thinks she has had HHC in the past but does not know the name of the agency. Pt denies SNF stays. Pt states no concerns with going home at time of dc. Pt states she would be agreeable to having therapy in the home to help with her unsteadiness. Patient was provided a list of HHC providers including quality and resource use data and consistent with the patient?s preferred geographic region, medical needs, and insurance network were provided from the [employer] Guide. Pt to review her preferences and RN VANDANA to check back. Pt states no further concerns/needs. CM to follow. Advised pt to ask CM if any further question/concerns/needs arise, voices understanding. Pt Goal: Home with HHC Plan: Home with HHC and FWW
--- NOTE | 2022-10-01 15:14 | CASEMGMT ---
Discharge Planning Referral sent [facility] Emma Frausto, Discharge Planning Asst.
--- NOTE | 2022-10-01 15:25 | CHAPLAIN ---
Type of Pastoral Visit _x__ Initial Visit ___ Follow-up Visit ___ On-call Visit ___ General Patient Visit ___ Spiritual Assessment ___ Family Conference ___ Bereavement ___ Rapid Response ___ Code Blue ___ Other (describe below) Pastoral Care Referral From _x__ Patient ___ Family ___ Nurse ___ Physician ___ Timber Poisoner ___ Archives Technician ___ Other (describe below) Sacrament/Intervention _x__ Active listening ___ Anointing ___ Samaritan ___ Bereavement ___ Communion ___ Yojana exploration ___ ___ Life review _x__ Prayer ___ Reconciliation ___ Sacrament of Sick _x__ Supportive presence ___ Wedding ___ Other (describe below) Pastoral Comments
[2022-10-01 15:34] VITALS: BP 123/73; PULSE 72; RESP 18; TEMP 36.4; O2SAT 95
--- NOTE | 2022-10-01 16:02 | DCINST_ITS ---
Discharge Instructions Diet Discharge Diet: No restrictions Activity Discharge Activity: Return to Normal Activity and Use Walker Weight Bearing Status: Full weight bearing Follow Up Care Test Results: Test results from this visit will be discussed in further detail at your follow- up appointment, if applicable. Discharge Plan Admission Admit Date/Time: 09/30/22 18:07 Primary Reason for Your Visit: stroke Attending Provider: Jose Price Primary Care Provider: Jennifer Klein Consulting Providers: Paul Daniels Instructions Additional Instructions / Restrictions: Please follow up with neurology. Discharge Orders/Prescriptions Prescriptions: New atorvastatin [Lipitor] 40 mg tablet 40 mg PO DAILY Qty: 30 0RF clopidogrel [Plavix] 75 mg tablet 75 mg PO DAILY Qty: 30 0RF Continued acetaminophen [Tylenol] 325 mg tablet 325 - 650 mg PO Q4H PRN (Reason: fever or pain) Qty: 90 0RF calcium carbonate-vitamin D3 1 TAB tablet 1 tablet PO DAILY aspirin 81 MG tablet,delayed release (DR/EC) 81 mg PO DAILY@0800 Creon 3,000-9,500- 15,000 unit capsule,delayed release(DR/EC) 1 cap PO BID Qty: 60 3RF Changed escitalopram oxalate [Lexapro] 5 mg tablet 10 mg PO DAILY Qty: 90 3RF Referrals / Follow Up: Jennifer Klein MD [Primary Care Provider] - Within 2 Weeks Rigo Comer MD [Non-Staff -Ordering Privileges] - Disposition Disposition (needs filled in before D/C Order can be placed): Home Health Service
--- NOTE | 2022-10-01 16:14 | DS.PCM_ITS ---
Providers Date of Admission: 09/30/22 Date of Discharge: 10/01/22 Primary Care Physician: Dr. 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 #2 chronic anemia-etiology unknown Medications at Discharge Home Medications aspirin 81 mg tablet,delayed release 81 mg PO DAILY@0800 HEALTH MAINTENANCE 07/01/20 calcium carbonate 600 mg-vitamin D3 20 mcg (800 unit) tablet 1 tablet PO DAILY SUPPLEMENT 07/01/20 acetaminophen 325 mg tablet (Tylenol) 325 - 650 mg (1 - 2 x 325 mg) PO Q4H PRN fever or pain #90 tabs 03/09/21 lipase 3,000-protease 9,500-amylase 15,000 unit capsule, delayed rel (Creon) 1 cap PO BID #60 caps 08/30/22 atorvastatin 40 mg tablet (Lipitor) 40 mg PO DAILY #30 tabs 10/01/22 clopidogrel 75 mg tablet (Plavix) 75 mg PO DAILY #30 tabs 10/01/22 escitalopram oxalate 5 mg tablet (Lexapro) 10 mg (2 x 5 mg) PO DAILY #90 tabs 10/01/22 Hospital Course Procedures None Summary of Care Provided Minutes Spent on Discharge: 31 Hospital Course: This 86-year-old white female was seen in the emergency room at [facility] after being instructed to go there by her PCP due to concerns that she might of had a transient ischemic attack. Patient complained of poor balance over the last couple of days, she had been seen in the emergency room the day before and had normal blood work, she was seen due to concerns of dehydr ation. Work-up included a CT of the head and neck which was unremarkable, her lab work was not repeated. [facility], she was seen by PT and OT, MRI of the brain was obtained which showed a small acute left frontal cortical infarct. I had discussions with the patient's daughter, patient was able to ambulate better with the use of a wheeled walker, this prescription was given to the patient and the patient wished to be discharged home, daughter was okay with this and I felt the patient was safe to go home. Patient was exhibiting some paranoid like behavior, the daughter stated that this was not new, I voiced concerns that the patient could have underlying early dementia and ask the daughter to have the patient follow-up with her PCP and asked the daughter to relay this to the PCP herself. I had social service agency director give the daughter paperwork for a medical POA which I encouraged patient's daughter to have, she was going to talk with her siblings about which person was going to be the POA. On 10/01/2022, patient was seen and examined: On examination she appeared in good health and spirits, she does not appear to be in any distress. Vital signs as documented. Skin warm and dry and without overt rashes. Neck without JVD, thyroid appears normal, trachea is midline, neck is supple. Lungs clear, normal air movement was noted. Heart exam notable for regular rhythm, normal sounds and absence of murmurs, rubs or gallops. Abdomen unremarkable and without evidence of organomegaly, masses, or abdominal aortic enlargement, bowel sounds are present in all 4 quadrants, no abdominal tenderness was noted. Extremities nonedematous, no cyanosis was noted, no clubbing was noted. Neuro: Cranial nerves II through XII are grossly intact, no focal motor deficits were noted, sensation to light touch and pinprick is intact, motor exam 5/5 throughout. Psych: Patient is alert and oriented x3, she does not appear anxious or depressed, she does not appear agitated. Patient was discharged home in stable condition on 10/01/2022 Weight / BMI Weight Weight: 44.8 kg Body Mass Index (BMI) 18.0 ABG / Lab / Microbiology Data Laboratory: Laboratory Results - last 24 hr 09/30/22 18:43: Vitamin B12 252, Vitamin D 25-Hydroxy 35.7 Radiography Diagnostic Testing: Radiology Impression Head/Neck CTA 09/30/22 16:20 IMPRESSION: Negative CTA carotid and CTA brain. Electronically Signed: Nestor Orlando MD at 17:08 EDT , KUB X-Ray 09/30/22 18:15 IMPRESSION: No acute findings. Electronically Signed: Nestor Orlando MD at 18:49 EDT , Brain MRI 10/01/22 09:55 IMPRESSION: Small acute left frontal cortical infarct. Mild chronic involutional and white matter changes. No evidence for enhancing intracranial mass. Electronically Signed: Luisa Guadalupe MD at 11:56 EDT , D/C Instructions Discharge Diet: No restrictions Weight Bearing Status: Full weight bearing Meaningful Use Info Meaningful Use Diagnoses (Choose all that apply): Ischemic CVA CVA Therapy Assessed for PT,OT and/or ST?: Yes Ischemic Stroke Antithrombotic order at d/c?: Yes Dx of Atrial fib/flutter?: No Anticoagulant at discharge?: No Reason anticoagulant not ordered: Treatment not Indicated Statins at discharge?: Yes Primary Dx Acute Ischemic CVA?: Yes IV thrombolytic ordered during stay?: No Reason IV thrombolytic not ordered: Treatment not Indicated Discharge Plan Admission Admit Date/Time: 09/30/22 18:07 Primary Reason for Your Visit: stroke Attending Provider: Jose Price Primary Care Provider: Jennifer Klein Consulting Providers: Paul Daniels Instructions Additional Instructions / Restrictions: Please follow up with neurology. Discharge Orders/Prescriptions Prescriptions: New atorvastatin [Lipitor] 40 mg tablet 40 mg PO DAILY Qty: 30 0RF clopidogrel [Plavix] 75 mg tablet 75 mg PO DAILY Qty: 30 0RF Continued acetaminophen [Tylenol] 325 mg tablet 325 - 650 mg PO Q4H PRN (Reason: fever or pain) Qty: 90 0RF calcium carbonate-vitamin D3 1 TAB tablet 1 tablet PO DAILY aspirin 81 MG tablet,delayed release (DR/EC) 81 mg PO DAILY@0800 Creon 3,000-9,500- 15,000 unit capsule,delayed release(DR/EC) 1 cap PO BID Qty: 60 3RF Changed escitalopram oxalate [Lexapro] 5 mg tablet 10 mg PO DAILY Qty: 90 3RF Referrals / Follow Up: Jennifer Klein MD [Primary Care Provider] - Within 2 Weeks Rigo Comer MD [Non-Staff -Ordering Privileges] - Disposition Disposition (needs filled in before D/C Order can be placed): Home Health Service Charges/Coding Visit Charges Inpatient E&M: 76494 Disch Hosp >30min
--- NOTE | 2022-10-01 16:25 | CASEMGMT ---
Social Work SW met with pt and completed PHQ9 as pt had a stroke. Pt score of 3 indicating mild depression. Pt denies any feelings of depression. Pt is on an anti depressant and received counseling approximatly 30 years ago. Pt denies need for counseling or resources at this time. SW educated on correlation between stroke and depression. FITO Alexis
--- NOTE | 2022-10-01 16:56 | CASEMGMT ---
Social Work SW met with pt and dgt to discuss advance directives. SW explained health care POA to pt. Pt and dgt choosing to talk to rest of family prior to completing documents. SW provided pt with Advance Directive Rack card and encouraged pt to make an appointment for assistance to complete forms when ready. FITO Turner
[2022-10-01 17:33] LABS: Cholesterol 170 mg/dL (200); High Density Lipoprotein 74 mg/dL; Triglycerides 185 mg/dL; Very Low Density Lipoprotein 37 mg/dL (5-40)
[2022-10-07 05:28] LABS: Copper, Serum or Plasma 110 ug/dL (80-158)
== END 2022-10-01 19:06 | disposition home health service (06) ==
LOC: ED 17:34 → MS3 17:45
PROVIDERS: Admitting Provider Internal Medicine; Emergency Provider Emergency Medicine; PCP Internal Medicine; Visit Provider Internal Medicine
DX: R26.0 Ataxic gait (principal); R26.81 Unsteadiness on feet; Z79.82 Long term (current) use of aspirin; Z87.891 Personal history of nicotine dependence; K21.9 Gastro-esophageal reflux disease without esophagitis; R19.7 Diarrhea, unspecified; Z79.899 Other long term (current) drug therapy; E55.9 Vitamin D deficiency, unspecified
CPT/HCPCS: 36415; 70496; 70498; 70553; 74018; 80061; 82306; 82525; 82607; 97162; 97166; 97802; 99221; 99285; A9575; Q9967; A4216; G0378

== ENCOUNTER 2022-10-06 13:24 | Emergency (ER) | payer MEDICARE, SELFPAY ==
[2022-10-06 13:25] VITALS: BP 122/67; PULSE 72; RESP 18; TEMP 36.8; O2SAT 98
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
[2022-10-06 14:26] VITALS: BP 118/67; PULSE 64; RESP 14; O2SAT 97; BMI 18.8
--- NOTE | 2022-10-06 14:30 | VDLE_ITS ---
Reason For Study: Chest Pain RIGHT LEFT CFV is compressible, spontaneous, phasic, GSV is normal. competent and demonstrates normal CFV is compressible, spontaneous, phasic, augmentation. competent, and demonstrates normal Procedure augmentation. This is a venous duplex using B-mode, color FV is compressible, spontaneous, phasic, flow and spectral Doppler. competent and demonstrates normal Exam performed portable in ED. augmentation. A preliminary report was called and/or faxed POP V is compressible, spontaneous, phasic, to Dr. Orlando. competent and demonstrates normal augmentation. T/P Trunk is compressible. PTV is compressible. LT PerV is compressible. VL/Venous Duplex US, Unilateral Interpretation Summary Deep veins of the left lower extremity are patent and compressible segmentally. There is no evidence of left lower extremity deep vein thrombosis. Valvular competence appears intac t within the proximal deep venous system on the left . The left great saphenous vein appears patent a nd compressible segmentally. The right common femoral vein is patent and compressible . Ordering Physician: Jasiel Orlando Referring Physician: Jennifer Klein Performed By: Nika Greenfield, VIRGEN, RVT
--- NOTE | 2022-10-06 14:30 | EKG12_ITS ---
Test Reason : Blood Pressure : / mmHG Vent. Rate : 058 BPM Atrial Rate : 058 BPM P-R Int : 154 ms QRS Dur : 138 ms QT Int : 458 ms P-R-T Axes : 060 -43 -11 degrees QTc Int : 449 ms Sinus bradycardia Left axis deviation Right bundle branch block Minimal voltage criteria for LVH, may be normal variant ( R in aVL ) Abnormal ECG Confirmed by SRIRAM MARTINEZ, CHARLEEN ([id number]), editorial assistant CORNLEIO BRYSON ([id number]) on 10/07/2022 1:27:47 PM Referred By: DOLORES Confirmed By:CHARLEEN BHATIA MD
--- NOTE | 2022-10-06 14:31 | CT_ITS ---
STUDY: CTA CHEST REASON FOR EXAM: Female, 86 years old. PE RADIATION DOSAGE (If Supplied By Facility): CTDIvol = ( 8.57 ) mGy, DLP = ( 110.10 ) mGycm TECHNIQUE: The examination was performed with the intravenous administration of IV 75mL Isovue-370. Post-processing of the angiographic images was performed, with multiplanar reformation and 3D reconstruction. Individualized dose optimization techniques were used for this CT. COMPARISON: Comparison is made with prior study dated October 11, 2022. FINDINGS: Normal enhancement of the main pulmonary artery and right and left pulmonary arteries. Normal enhancement of the bilateral peripheral pulmonary arteries. There is no demonstrated pulmonary embolism. Normal thoracic aorta and visualized great vessels. There is no demonstrated aortic dissection. There are calcifications of the coronary arteries. Stable 1.8 cm lymph node in the precarinal space. Normal hilar regions. Normal visualized trachea and bronchi. The lungs are well expanded. Stable 4.5 cm x 2.5 cm heterogeneous mass in the medial aspect of the right upper lobe. This extends into the anterior chest wall. Bronchiectasis seen within it. Normal pleura. Normal chest wall structures. There are degenerative changes of thoracic spine. Stable loss of height of the L1 vertebrae. Prior gastric surgery. CT/CTA Chest W/WO Contrast IMPRESSION: No evidence of pulmonary embolism. Stable heterogeneous mass in the anterior aspect of the right upper lobe. Electronically Signed: Asher Meng MD at 15:49 EDT ,
[2022-10-06 14:52] LABS: Absolute Lymphocyte Count 1.89 X10^3/uL (0.83-4.51); Basophil# 0.06 X10^3/uL; Eosinophil# 0.09 X10^3/uL; Eosinophils% 1.5 % (0-5); Hematocrit 30.1 % (37-47); Hemoglobin 9.9 g/dL (12.0-15.0); Lymphocyte # 1.89 X10^3/ul (0.83-4.51); Lymphocyte % 32.3 % (19-41); Mean Corp Hgb Conc 32.9 g/dL (32-36); Mean Corpuscular Hgb 30.5 pg (27.0-32.0); Mean Corpuscular Volume 92.6 fL (81-99); Mean Platelet Vol. 9.4 fl (6.2-12.0); Monocyte# 0.85 X10^3/uL; Monocyte% 14.5 % (0-10); NRBC Flagged by Analyzer 0 % (0-5); Neutrophil # 2.95 X10^3/uL (2.7-7.7); Neutrophil % 50.4 % (47-70); Platelet Count 291 K/mm3 (150-450); RBC Distribution Width CV 13.2 % (11.6-14.6); RBC Distribution Width SD 44.6 fl (35.1-43.9); Red Blood Count 3.25 M/mm3 (4.2-5.4); White Blood Count 5.9 K/mm3 (4.4-11.0)
[2022-10-06 14:56] LABS: International Normalized Ratio 0.9; Prothrombin Time (Protime)PT. 12.3 SECONDS (11.7-14.9)
[2022-10-06 14:57] LABS: Partial Thromboplast Time 23.4 Seconds (24.1-36.2)
[2022-10-06 15:20] LABS: Anion Gap 3 (5-15); BUN 14 mg/dL (7-18); Calcium,Total 8.2 mg/dL (8.5-10.1); Chloride 112 mmol/L (98-107); Creatinine, Serum 0.56 mg/dL (0.55-1.02); EST Glomerular Filtration Rate 109 mL/min (>60); Est Glom Filt Rate - Afr Amer 132 mL/min (>60); Estimated Creatinine Clearance 30.81 ml/min; Glucose 67 mg/dL (74-106); Potassium 3.9 mmol/L (3.5-5.1); Sodium Level 141 mmol/L (136-145); Troponin-I HS 11 pg/mL (3.0-54.0)
== END 2022-10-06 16:41 | disposition home or self-care (01) ==
PROVIDERS: Emergency Provider Emergency Medicine; PCP Internal Medicine; Visit Provider Emergency Medicine
DX: R07.9 Chest pain, unspecified (principal); Z87.891 Personal history of nicotine dependence; Z86.73 Personal history of transient ischemic attack (TIA), and cerebral infarction without residual deficits; Z79.02 Long term (current) use of antithrombotics/antiplatelets; F41.8 Other specified anxiety disorders; Z79.899 Other long term (current) drug therapy
CPT/HCPCS: 71275; 80048; 84484; 85025; 85610; 85730; 93005; 93971; 99284; A4216

== ENCOUNTER → 2022-10-11 | Outpatient (CLI) | payer MEDICARE, SELFPAY ==
--- NOTE | 2022-10-11 14:05 | ECHOD_ITS ---
Reason For Study: Abnormal EKG, CVA Procedure This was a 2D Doppler, Color Flow transthoracic echocardiogram. Exam performed in department. Left Ventricle Normal LV size. Left ventricular systolic function is normal. The estimated ejection fraction is 60 %. Stage 1 diastolic dysfunction. No regional wall motion abnormalities noted. Right Ventricle Normal RV size. Normal systolic function. Atria Normal left atrium. Normal right atrium. Bubble contrast study negative for right to left interatrial shunt. Mitral Valve Normal mitral valve. Tricuspid Valve Normal tricuspid valve. Mild (1+) tricuspid valve insufficiency. Pulmonary artery systolic pressure is 28 mmHg. Aortic Valve Normal aortic valve. Pulmonic Valve Normal pulmonic valve. Great Vessels Normal aortic root. Pericardium/Pleural No pericardial effusion. Medication 20 gauge I.V. with prn adaptor inserted into right arm. Performed a rapid injection of agitated mix of 9 cc saline and 1cc air to assess for atrial septal defect. MMode/2D Measurements & Calculations LVIDd: 4.5 cm IVSd: 1.0 cm Ao root diam: 3.3 cm LVIDs: 2.9 cm LVPWd: 0.87 cm LA dimension: 3.1 cm RVDd: 3.3 cm FS: 36.2 % LAV(MOD-bp): 40.2 ml LVAd ap4: 21.2 cm2 SV(MOD-sp4): 34.1 ml LAV(MOD-bp) Indexed: 28.2 ml/m2 LVLd ap4: 6.5 cm LAV(MOD-sp2): 37.8 ml EDV(MOD-sp4): 56.1 ml LAV(MOD-sp4): 41.6 ml EDV(sp4-el): 58.4 ml LVAs ap4: 11.9 cm2 LVLs ap4: 5.4 cm ESV(MOD-sp4): 21.9 ml ESV(sp4-el): 22.2 ml EF(MOD-sp4): 60.9 % EF(sp4-el): 62.0 % SV(sp4-el): 36.2 ml LA A4 area: 15.7 cm2 RA A4 area: 15.4 cm2 Time Measurements MV dec time: 0.27 sec Doppler Measurements & Calculations MV E max max: 51.8 cm/sec Lat Peak E' Max: 5.9 cm/sec Med Peak E' Max: 6.5 cm/sec MV A max max: 84.9 cm/sec E/E' lat: 8.9 E/E' med: 8.0 MV E/A: 0.61 MV V2 max: 93.9 cm/sec MV P1/2t max max: 69.4 cm/sec Ao V2 max: 146.7 cm/sec MV max P.5 mmHg MV P1/2t: 101.8 msec Ao max P.6 mmHg MV V2 mean: 47.0 cm/sec Ao V2 mean: 102.2 cm/sec MV mean P.1 mmHg MV dec slope: 199.5 cm/sec2 Ao mean P.8 mmHg MV V2 VTI: 27.8 cm MVA(P1/2t): 2.2 cm2 Ao V2 VTI: 33.0 cm AV (velocity ratio): 0.76 AI max max: 351.4 cm/sec LV V1 max: 124.1 cm/sec PA V2 max: 96.6 cm/sec AI max P.6 mmHg LV V1 max P.2 mmHg PA V2 mean: 82.0 cm/sec LV V1 mean P.4 mmHg AI dec slope: 173.4 cm/sec2 LV V1 mean: 87.9 cm/sec AI P1/2t: 593.4 msec LV V1 VTI: 25.2 cm TR max max: 247.2 cm/sec TR max P.4 mmHg ECHO/Echo Complete Interpretation Summary Normal LV size. Left ventricular systolic function is normal. The estimated ejection fraction is 60 %. Bubble contrast study negative for right to left interatrial shunt. Pulmonary artery systolic pressure is 28 mmHg. Stage 1 diastolic dysfunction. Ordering Physician: Jennifer Klein Referring Physician: Jennifer Klein Performed By: Piero Conley RCS
== END | disposition home or self-care (01) ==
LOC: CVS 14:04
PROVIDERS: PCP Internal Medicine; Referring Provider Internal Medicine; Visit Provider Internal Medicine
DX: I07.1 Rheumatic tricuspid insufficiency (principal)
CPT/HCPCS: 93306; A4216

== ENCOUNTER 2022-11-23 18:53 | Emergency (ER) | payer MEDICARE, SELFPAY ==
[2022-11-23 18:54] VITALS: BP 129/77; PULSE 77; RESP 16; TEMP 36.2; O2SAT 100; BMI 18.8
--- NOTE | 2022-11-23 19:19 | RAD_ITS ---
INDICATION: injury EXAMINATION/TECHNIQUE: X-RAY - RIGHT XR Hand Min 3 Views 3 VIEWS COMPARISON: No prior examinations are available for comparison. FINDINGS: SOFT TISSUES: Faint calcifications of the dorsal aspect of the wrist on the lateral view. Triquetral fracture is doubtful. No radiopaque foreign body. BONES/JOINTS: No acute fracture or subluxation.. Normal alignment. Mild degenerative arthrosis of the carpometacarpal joint of the thumb.. No sclerotic or destructive changes observed. RAD/Hand Min 3 Views IMPRESSION: No evidence of acute fracture. Electronically Signed: Sanju March MD at 20:40 EDT ,
--- NOTE | 2022-11-23 19:19 | CT_ITS ---
INDICATION: head injury EXAMINATION: CT BRAIN - CT Head or Brain W/O Contrast Injection TECHNIQUE: Multiple axial images were obtained of the head without intravenous contrast. A radiation dose optimization technique was used for this scan. IV Contrast dosage and agent: None. RADIATION DOSAGE (If Supplied By Facility): CTDIvol = ( 44.99 ) mGy, DLP = ( 745.49 ) mGycm COMPARISON: Prior examination of 05/01/2022. FINDINGS: BRAIN PARENCHYMA: No intra- or extra-axial hemorrhage. No evidence of acute infarct. No intracranial mass or mass effect. There is preservation of the carey/white matter interface. Posterior fossa structures are unremarkable. CSF SPACES: Appropriate for age. No hydrocephalus. Basal cisterns are patent. CALVARIUM, SKULL BASE, PARANASAL SINUSES AND MASTOID AIR CELLS: Clear. No discrete lytic or blastic abnormalities. ORBITS: Both globes, extraocular muscles, optic nerves and retrobulbar fat appear unremarkable. ASPECTS Score for Acute Strokes: 10 CT/Brain/Head without Contrast IMPRESSION: No acute intracranial process. Electronically Signed: Sanju March MD at 19:54 EDT ,
--- NOTE | 2022-11-23 19:19 | CT_ITS ---
INDICATION: polytrauma EXAMINATION: CT CERVICAL SPINE - CT Spine Cervical W/O Contrast Injection TECHNIQUE: Helically acquired images were obtained of the cervical spine. 2D reformatted images were reviewed. A radiation dose optimization technique was used for this scan. IV Contrast dosage and agent: None. RADIATION DOSAGE (If Supplied By Facility): CTDIvol = ( 12.05 ) mGy, DLP = ( 221.81 ) mGycm COMPARISON: Previous exam of 04/21/2016 FINDINGS: VERTEBRAE: No fracture or traumatic subluxation. No discrete lytic or blastic abnormality. Minimal anterolisthesis of C2 over C3 unchanged. Normal craniocervical junction and cervicothoracic junction. DISCS and SPINAL CANAL: Severe narrowing of C3-C4, C4-C5, C5-C6 and C6-C7 disc spaces. Degenerative changes in the apophyseal joints and mild neural foramina stenosis unchanged. No critical stenosis. NECK SOFT TISSUES: No prevertebral soft tissue swelling. Mild atherosclerotic calcifications of the right carotid artery. LUNG APICES: Right apical changes could be due to pleural fibrotic changes difficult to characterize on this exam. CT/Spine Cervical without Contras IMPRESSION: 1. No evidence of acute cervical spinal fracture or spondylolisthesis or 2. Degenerative changes unchanged. Electronically Signed: Sanju March MD at 20:00 EDT ,
--- NOTE | 2022-11-23 19:20 | RAD_ITS ---
INDICATION: FALL EXAMINATION/TECHNIQUE: X-RAY - LEFT XR Elbow Min 3 Views COMPARISON: Radiographs of the forearm of 05/01/2022. FINDINGS: SOFT TISSUES: No soft tissue swelling or gas. No radiopaque foreign body. BONES/JOINTS: There is no displacement of the anterior or posterior fat pads. No acute fracture or subluxation. Normal alignment. Preservation of the joint space. No sclerotic or destructive changes observed. RAD/Elbow min 3 Views IMPRESSION: Negative. Electronically Signed: Sanju March MD at 20:31 EDT ,
--- NOTE | 2022-11-23 19:20 | RAD_ITS ---
INDICATION: FALL EXAMINATION/TECHNIQUE: X-RAY - LEFT XR Hand Min 3 Views 3 VIEWS COMPARISON: None. FINDINGS: SOFT TISSUES: No soft tissue swelling or gas. No radiopaque foreign body. BONES/JOINTS: No acute fracture or subluxation.. Normal alignment. Mild degenerative arthrosis of the carpometacarpal joint of thumb. No sclerotic or destructive changes observed. RAD/Hand Min 3 Views IMPRESSION: No evidence of acute fracture Electronically Signed: Sanju March MD at 20:37 EDT ,
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
--- NOTE | 2022-11-23 19:39 | RAD_ITS ---
INDICATION: injury EXAMINATION/TECHNIQUE: X-RAY - RIGHT XR Elbow Min 3 Views COMPARISON: None. FINDINGS: SOFT TISSUES: Soft tissue swelling of the posterior aspect of the elbow. No radiopaque foreign body. BONES/JOINTS: Questionable hairline nondisplaced fracture of the olecranon process of the proximal ulna. Small posterior degenerative spur. No evidence of dislocation. RAD/Elbow min 3 Views IMPRESSION: Questionable hairline nondisplaced fracture of the olecranon process of the proximal ulna. Electronically Signed: Sanju March MD at 20:34 EDT ,
[2022-11-23] MEDS: HYDROcodone Bitartrate/Apap 5/325 Tablet PO (20:50)
== END 2022-11-23 22:21 | disposition home or self-care (01) ==
PROVIDERS: Emergency Provider Emergency Medicine; PCP Internal Medicine; Visit Provider Emergency Medicine
DX: S52.125A Nondisplaced fracture of head of left radius, initial encounter for closed fracture (principal); Z87.891 Personal history of nicotine dependence; S60.511A Abrasion of right hand, initial encounter; S09.8XXA Other specified injuries of head, initial encounter; S52.024A Nondisplaced fracture of olecranon process without intraarticular extension of right ulna, initial encounter for closed fracture; W01.198A Fall on same level from slipping, tripping and stumbling with subsequent striking against other object, initial encounter; Y92.480 Sidewalk as the place of occurrence of the external cause; Z79.02 Long term (current) use of antithrombotics/antiplatelets; Z86.73 Personal history of transient ischemic attack (TIA), and cerebral infarction without residual deficits; Z79.82 Long term (current) use of aspirin; F41.8 Other specified anxiety disorders; Z90.49 Acquired absence of other specified parts of digestive tract
CPT/HCPCS: 29105; 70450; 72125; 73080; 73130; 99284

== ENCOUNTER 2022-11-24 20:50 | Emergency (ER) | payer MEDICARE, SELFPAY ==
[2022-11-24 20:51] VITALS: BP 132/53; PULSE 65; RESP 16; TEMP 36.6; O2SAT 94; BMI 18.6
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
== END 2022-11-24 22:50 | disposition home or self-care (01) ==
LOC: ED 22:31
PROVIDERS: Emergency Provider Emergency Medicine; PCP Internal Medicine; Visit Provider Emergency Medicine
DX: S42.402A Unspecified fracture of lower end of left humerus, initial encounter for closed fracture (principal); Z87.891 Personal history of nicotine dependence; F41.8 Other specified anxiety disorders; Z79.899 Other long term (current) drug therapy; Z79.01 Long term (current) use of anticoagulants; Z90.49 Acquired absence of other specified parts of digestive tract
CPT/HCPCS: 29105; 99282

== ENCOUNTER 2022-12-02 08:32 | Emergency (ER) | payer MEDICARE, SELFPAY ==
[2022-12-02 08:33] VITALS: BP 138/90; PULSE 91; RESP 18; TEMP 36.4; O2SAT 100; BMI 19.0
[2022-12-02 08:41] VITALS: O2SAT 97
--- NOTE | 2022-12-02 08:43 | CT_ITS ---
EXAM: CT HEAD WITHOUT INTRAVENOUS CONTRAST CLINICAL INDICATION: Closed head injury complaining of headache TECHNIQUE: Multiple axial images were obtained of the head without intravenous contrast. This CT exam was performed using one or more of the following dose reduction techniques: automated exposure control, adjustment of the mA and/or kV according to patient size, and/or use of iterative reconstruction technique. COMPARISON: CT Head dated 11/23/2022 FINDINGS: BRAIN AND EXTRA-AXIAL SPACES: No hemorrhage or mass effect. No acute ischemia. Areas of diminished white matter density noted within both cerebral hemispheres suggestive of chronic microvascular change. Prominence of the cortical sulci and ventricles related to volume loss change. BONES/JOINTS: No suspicious lytic or blastic abnormality. SINUSES: No acute sinusitis. MASTOID AIR CELLS: Normal. Clear. CT/Brain/Head without Contrast IMPRESSION: 1. No acute intracranial abnormality. 2. Stable senescent changes. Electronically Signed: Andrzej Chavez MD at 9:41 EDT ,
--- NOTE | 2022-12-02 08:44 | RAD_ITS ---
EXAM: XR CHEST, 2 VIEWS CLINICAL INDICATION: Chest trauma -- Pain outpatient left fifth and sixth rib anteriorly TECHNIQUE: Frontal and lateral views of the chest. COMPARISON: XR Chest dated 02/25/2022 FINDINGS: LUNGS AND PLEURAL SPACES: Hyperinflation suggesting emphysema. No pneumothorax. No effusion. HEART: Normal heart size. MEDIASTINUM: No mediastinal or hilar mass. BONES/JOINTS: No acute abnormality. RAD/Chest PA and Lateral IMPRESSION: No acute cardiopulmonary abnormality. Hyperinflation. No interval change. Electronically Signed: Andrzej Chavez MD at 9:50 EDT ,
--- NOTE | 2022-12-02 08:44 | RAD_ITS ---
EXAM: XR LEFT ELBOW COMPLETE, 3 OR MORE VIEWS CLINICAL INDICATION: FALL, DEFORMITY LEFT ELBOW TECHNIQUE: Frontal, lateral and oblique views of the left elbow. COMPARISON: No relevant prior studies available. FINDINGS: BONES/JOINTS: Acute avulsion fracture of the olecranon process noted with 16 mm distraction deformity. Fracture involves the large area of the articular surface of the olecranon. No subluxation. Large joint effusion displaces the anterior and posterior fat pads. SOFT TISSUES: Normal. No soft tissue swelling or gas. No radiopaque foreign body. RAD/Elbow min 3 Views IMPRESSION: Acute fracture of the olecranon. As above. Electronically Signed: Andrzej Chavez MD at 9:48 EDT ,
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
[2022-12-02] MEDS: Diphth,Pertuss(Acell),Tet Vac 0.5 ML Vial IM (11:15)
[2022-12-02 11:38] VITALS: BP 134/69; PULSE 77; RESP 15; O2SAT 95
== END 2022-12-02 11:39 | disposition home or self-care (01) ==
PROVIDERS: Emergency Provider Emergency Medicine; PCP Internal Medicine; Visit Provider Emergency Medicine
DX: S52.032A Displaced fracture of olecranon process with intraarticular extension of left ulna, initial encounter for closed fracture (principal); S06.9XAA Unspecified intracranial injury with loss of consciousness status unknown, initial encounter; Z87.891 Personal history of nicotine dependence; W01.198A Fall on same level from slipping, tripping and stumbling with subsequent striking against other object, initial encounter; Z23 Encounter for immunization
CPT/HCPCS: 29105; 29405; 70450; 71046; 73080; 90471; 90715; 99284

== ENCOUNTER 2022-12-11 11:54 | Emergency (ER) | payer MEDICARE, SELFPAY ==
[2022-12-11 11:55] VITALS: BP 147/93; PULSE 73; RESP 16; TEMP 36.4; O2SAT 97; BMI 18.6
--- NOTE | 2022-12-11 11:59 | ED.RN ---
DAUGHTER RAN IN AHEAD OF PT TO TALK WITH NURSE REGARDING PT NOT BEING COMPLIANT WITH LIFTING RESTRICTIONS ETC. PT COME INTO ED UPSET AND TRYING TO AVOID DAUGHTER. PT EASILY CALMED AND COOPERATIVE WITH NURSING. DAUGHTER RUSHED IN TO NURSE AND PT CONVERSATION TALKING OVER PT PT LEFT TRIAGE ROOM SAID SHE WOULD BE BACK WHEN SHE (DAUGHTER) WAS DONE AND OUT. THIS NURSE EXPLAINED TO DAUGHTER THAT WE NEEDED TO TALK WITH PT IN ORDER TO GET HER CHECKED IN AND DAUGHTER STATES ONCE YOU HEAR WHAT YOU WANT FROM HER CALL ME...THIS IS REDICULOUS THREW UP HER HANDS AND LEFT. PT WAS CALM AND STATES SHE DIDNT WANT HER DAUGHTER INVOLVED THEN STATES IF SHE CALLS IN YOU CAN TELL HER BECAUSE SHE DIDNT WANT MORE PROBLEMS.
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
--- NOTE | 2022-12-11 12:21 | ED.RN ---
DAUGHTER CALLED YOU NEED TO TELL THE NURSE AND DR THAT DR. LEWIS PUT THE CAST ON YESTERDAY, YOU ARE TO LEAVE THE CAST ALONE, HE BUT IT ON STRAIGHT FOR A REASON. ALSO WHEN SHE IS D/C RE-INFORCE TO HER PER DR. LEWIS THAT SHE IS NOT TO BE LIFTING AND IS TO REMAIN SEATED. NURSE, PA, AND INFORMED.
== END 2022-12-11 14:12 | disposition home or self-care (01) ==
PROVIDERS: Emergency Provider Emergency Medicine; PCP Internal Medicine; Visit Provider Emergency Medicine
DX: G89.18 Other acute postprocedural pain (principal); M79.642 Pain in left hand; Z87.891 Personal history of nicotine dependence; F41.8 Other specified anxiety disorders; Z79.899 Other long term (current) drug therapy; Z90.49 Acquired absence of other specified parts of digestive tract
CPT/HCPCS: 99282

== ENCOUNTER 2023-03-11 14:03 | Observation (INO) | payer MEDICARE, SELFPAY ==
[2023-03-11] VITALS (12 sets, daily range): BP systolic 108–159; BP diastolic 65–87; PULSE 55–63; RESP 13–24; TEMP 36–36.6; O2SAT 92–100; BMI 18.9; BMI 18.8; BMI 17.9
--- NOTE | 2023-03-11 14:21 | ED.RN ---
patient reports near syncopal episode at the grocery store. no loc and did not hit head. c/o dizziness and generalized weakness.
--- NOTE | 2023-03-11 14:43 | CT_ITS ---
INDICATION: Right-sided numbness and weakness. EXAMINATION: CT BRAIN - CT Head Stroke Protocol W/O Contrast Injection TECHNIQUE: Multiple axial images were obtained of the head without intravenous contrast. A radiation dose optimization technique was used for this scan. IV Contrast dosage and agent: None. RADIATION DOSAGE (If Supplied By Facility): CTDIvol = ( 89.98 ) mGy, DLP = ( 42.98 ) mGycm COMPARISON: Prior study dated: 12/02/2022 FINDINGS: BRAIN PARENCHYMA: No intra- or extra-axial hemorrhage. No evidence of acute infarct. No intracranial mass or mass effect. There is preservation of the carey/white matter interface. Mild chronic periventricular changes likely due to microvascular disease. Posterior fossa structures are unremarkable. CSF SPACES: Appropriate for age. No hydrocephalus. Basal cisterns are patent. CALVARIUM, SKULL BASE, PARANASAL SINUSES AND MASTOID AIR CELLS: Clear. No discrete lytic or blastic abnormalities. ORBITS: Previous cataract surgery. CT/STROKE Brain/Head without Cont IMPRESSION: Negative Brain CT without contrast. N.B. : The above Results were Read Back by Sanju March MD to DAVID MOSER MD, and understanding confirmed on 03/11/2023 15:17:33 (ET). Electronically Signed: Sanju March MD at 15:21 EST ,
--- NOTE | 2023-03-11 14:43 | CT_ITS ---
INDICATION: Neuro deficit, acute, stroke suspected EXAMINATION: CT BRAIN WITHOUT CONTRAST, CTA HEAD, AND CTA NECK TECHNIQUE: Noncontrast axial images were obtained of the brain. Subsequently, routine carotid CT angiogram protocol was performed without and with IV contrast. In addition, images were obtained of the [place] of [place]. NASCET criteria using the distal ICAs for comparison were used for evaluation of stenoses. 3D reconstructions were reviewed. A radiation dose optimization technique was used for this scan. IV Contrast dosage and agent: 100 cc of [id number] COMPARISON: No relevant prior comparison study available FINDINGS: --CTA NECK: AORTIC ARCH AND BRANCHES: Normal anatomy, patent. RIGHT CCA: Mild atherosclerotic calcifications in the distal right common carotid artery. No occlusion, significant stenosis or dissection. RIGHT ICA: Tortuosity of the right internal carotid artery without significant stenosis. LEFT CCA: Mild atherosclerotic calcifications of the distal left common carotid artery. No occlusion, significant stenosis or dissection. LEFT ICA: Mild tortuosity of the proximal left internal carotid artery without significant stenosis. RIGHT VERTEBRAL ARTERY: No occlusion, significant stenosis or dissection. LEFT VERTEBRAL ARTERY: No occlusion, significant stenosis or dissection. NECK SOFT TISSUES: Unremarkable. --CTA HEAD: --Anterior circulation: ICAs: No significant stenosis at the intracranial/visualized segments. ACAs: No significant stenosis at the visualized segments. ACOM: Present. MCAs: No significant stenosis at the visualized segments. --Posterior circulation: PCOMs: Faintly visualized bilaterally. hose seamer: No significant stenosis at the visualized segments. BASILAR ARTERY: No significant stenosis. VERTEBRAL ARTERIES: No significant stenosis at the intradural/visualized segments. No evidence of intracranial aneurysm or vascular malformation. CT/STROKE CTA Head AND Neck W/Con IMPRESSION: 1. No intracranial great vessel stenosis. 2. Mild atherosclerotic calcifications of the distal common carotid arteries with tortuosity without significant stenosis. 3. Patent bilateral vertebral arteries without significant stenosis or dissection. N.B. : The above Results were Read Back by Sanju March MD to DAVID MOSER MD, and understanding confirmed on 03/11/2023 15:29:46 (ET). Electronically Signed: Sanju March MD at 15:30 EST ,
--- NOTE | 2023-03-11 14:43 | EKG12_ITS ---
Test Reason : STROKE TEAM Blood Pressure : / mmHG Vent. Rate : 053 BPM Atrial Rate : 053 BPM P-R Int : 164 ms QRS Dur : 142 ms QT Int : 474 ms P-R-T Axes : 066 -40 012 degrees QTc Int : 444 ms Sinus bradycardia Left axis deviation Right bundle branch block Minimal voltage criteria for LVH, may be normal variant ( R in aVL ) Abnormal ECG Confirmed by SRIRAM MARTINEZ, CHARLEEN ([id number]), editor school photograph TONIA TANNER ([id number]) on 03/15/2023 8:26:09 AM Referred By: Confirmed By:CHARLEEN BHATIA MD
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
--- NOTE | 2023-03-11 14:44 | NURSING ---
STROKE ALERT CALLED
[2023-03-11 15:06] LABS: Absolute Lymphocyte Count 1.73 X10^3/uL (0.83-4.51); Absolute Neutrophil Count 2.7 X10^3/uL (2.0-7.7); Basophil# 0.04 X10^3/uL; Basophil% 0.7 % (0-1); Eosinophil# 0.12 X10^3/uL; Eosinophils% 2.2 % (0-5); Hematocrit 30.7 % (37-47); Hemoglobin 9.9 g/dL (12.0-15.0); Lymphocyte # 1.73 X10^3/ul (0.83-4.51); Mean Corp Hgb Conc 32.2 g/dL (32-36); Mean Corpuscular Hgb 29.4 pg (27.0-32.0); Mean Corpuscular Volume 91.1 fL (81-99); Mean Platelet Vol. 9.4 fl (6.2-12.0); Monocyte# 0.78 X10^3/uL; Monocyte% 14.4 % (0-10); NRBC Flagged by Analyzer 0 % (0-5); Neutrophil # 2.73 X10^3/uL (2.7-7.7); Neutrophil % 50.5 % (47-70); Platelet Count 242 K/mm3 (150-450); RBC Distribution Width CV 13.6 % (11.6-14.6); RBC Distribution Width SD 45.4 fl (35.1-43.9); Red Blood Count 3.37 M/mm3 (4.2-5.4); White Blood Count 5.4 K/mm3 (4.4-11.0)
--- OUTSIDE RECORDS SUMMARY | 2023-03-11 15:12 | XMS RPT_ITS | CCD ---
Author Name Unknown Address [address] [place] [address] Organization [facility] Care Team Providers Care Weed Controller Name Role Phone ARELI CAMPBELL Unavailable Unavailable TIERRA PATEL Unavailable Unavailable CHO, RALF Unavailable Unavailable ARELI CAMPBELL M Unavailable Unavailable TIERRA PATEL Unavailable Unavailable CHO, RALF Unavailable Unavailable VOLL, MANDY DO Unavailable Unavailable VOLL, MANDY DO Unavailable Unavailable VOLLMANDY DO Unavailable Unavailable TIERRA PATEL MD Unavailable Unavailable TIERRA PATEL MD Unavailable Unavailable PROVIDER, UNKNOWN Unavailable Unavailable PROVIDER, UNKNOWN Unavailable Unavailable PROVIDER, UNKNOWN Unavailable Unavailable STEVEN ANUJA E Unavailable Unavailable STEVEN ANUJA E Unavailable Unavailable STEVENANUJA MELENDEZ E Unavailable Unavailable MARTY ROCK MD Unavailable Unavailable PROVIDER, UNKNOWN Unavailable Unavailable STEVENANUJA MELENDEZ E Unavailable Unavailable ANUJA HARRIS E Unavailable Unavailable MARTY ROCK MD Unavailable Unavailable ANUJA HARRIS E Unavailable Unavailable MARTY ROCK MD Unavailable Unavailable PROVIDER, UNKNOWN Unavailable Unavailable MARTY ROCK MD Unavailable Unavailable FENZL, AURELIO E Unavailable Unavailable FENZL, AURELIO E Unavailable Unavailable AURELIO ANDREW E Unavailable Unavailable MARTY ROCK MD Unavailable Unavailable PROVIDER, UNKNOWN Unavailable Unavailable OMLEY TOMA DO Unavailable Unavailable OMLEY, TOMA DO Unavailable Unavailable TIERRA PATEL MD Unavailable Unavailable TOMA LUGO DO Unavailable Unavailable TIERRA PATEL MD Unavailable Unavailable PROVIDER, UNKNOWN Unavailable Unavailable PROVIDER, UNKNOWN Unavailable Unavailable PROVIDER, UNKNOWN Unavailable Unavailable TIERRA PATEL MD Unavailable Unavailable TIERRA PATEL MD Unavailable Unavailable STEVEN, ANUJA E Unavailable Unavailable STEVEN, ANUJA E Unavailable Unavailable STEVEN, ANUJA E Unavailable Unavailable PROVIDER, UNKNOWN Unavailable Unavailable PROVIDER, UNKNOWN Unavailable Unavailable PROVIDER, UNKNOWN Unavailable Unavailable TIERRA PATEL MD Unavailable Unavailable TIERRA PATEL MD Unavailable Unavailable TIERRA PATEL MD Unavailable Unavailable TIERRA PATEL MD Unavailable Unavailable PROVIDER, UNKNOWN Unavailable Unavailable PROVIDER, UNKNOWN Unavailable Unavailable PROVIDER, UNKNOWN Unavailable Unavailable TIERRA PATEL MD Unavailable Unavailable TIERRA PATEL MD Unavailable Unavailable TIERRA PATEL MD Unavailable Unavailable TIERRA PATEL MD Unavailable Unavailable PROVIDER, UNKNOWN Unavailable Unavailable PROVIDER, UNKNOWN Unavailable Unavailable PROVIDER, UNKNOWN Unavailable Unavailable TIERRA PATEL MD Unavailable Unavailable TIERRA PATEL MD Unavailable Unavailable TIERRA PATEL MD Unavailable Unavailable TIERRA PATEL MD Unavailable Unavailable PROVIDER, UNKNOWN Unavailable Unavailable PROVIDER, UNKNOWN Unavailable Unavailable PROVIDER, UNKNOWN Unavailable Unavailable VELASQUEZ, ANJEL L Unavailable Unavailable VELASQUEZ, ANJEL L Unavailable Unavailable PHYSICIAN, PATIENT UNSURE Unavailable Unavaroselia pace PHYSICIAN, PATIENT UNSURE Unavailable TIERRA Howe MD Admitting Unavailable TIERRA PATEL MD Attending Unavailable TIERRA PATEL MD Primary Care Unavailable VINITA GANT MD Consulting Unavailable PROVIDER, UNKNOWN Consulting Unavailable PROVIDER, UNKNOWN Consulting Unavailable VINITA GANT MD Admitting Unavailable VINITA GANT MD Attending Unavailable VINITA GANT MD Primary Care Unavailable VINITA GANT MD Consulting Unavailable PROVIDER, UNKNOWN Consulting Unavailable PROVIDER, UNKNOWN Consulting Unavailable ARELI CAMPBELL MD Admitting Unavailable ARELI CAMPBELL MD Attending Unavailable ARELI CAMPBELL MD Primary Care Unavailable TIERRA PATEL Referring Unavailable TIERRA PATEL Admitting Unavailable TIERRA PATEL Attending Unavailable TIERRA PATEL Primary Care Unavailable LOUIS STANLEY DO Admitting Unavailable LOUIS STANLEY DO Attending Unavailable LOUIS STANLEY DO Primary Care Unavailable VINITA GANT MD Consulting Unavailable VINITA GANT MD Referring Unavailable PROVIDER, UNKNOWN Consulting Unavailable PROVIDER, UNKNOWN Consulting Unavailable EL HDZ DO Admitting Unavailable EL HDZ DO Attending Unavailable EL HDZ DO Primary Care Unavailable VINITA GANT MD Admitting Unavailable VINITA GANT MD Attending Unavailable VINITA GANT MD Primary Care Unavailable VINITA GANT MD Consulting Unavailable PROVIDER, UNKNOWN Consulting Unavailable PROVIDER, UNKNOWN Consulting Unavailable Unavailable Primary Care Provider Unavailmaulik Patel MD, Tierra Mirza Primary Care Provider EL HARDY Referring Unavailable TIERRA PATEL Primary Care Unavailable TIERRA PATEL Primary Care Unavailable EL HARDY Referring Unavailable TIERRA PATEL Primary Care Unavailable TIERRA PATEL Primary Care Unavailable TIERRA PATEL Primary Care Unavailable TIERRA PATEL Primary Care Unavailable TIERRA PATEL Primary Care Unavailable MANDY SEPULVEDA Unavailable EL HARDY Referring Unavailable TIERRA PATEL Primary Care Unavailable Allergies Allergy Classification Reported Allergen(s) Allergy Type Date of Onset Reaction(s) Facility (2 sources) Adhesive Tape; Translations: [TAPE] Propensity to adverse reactions (disorder) [facility] Repository (3 sources) estradiol; Translations: [ESTRADIOL] Drug Allergy 8 [facility] Repository (2 sources) estradiol Drug Allergy [facility] Repository (2 sources) penicillin Drug Allergy [facility] Rep[facility] (2 sources) Sulfonamides (Antibiotic) Drug allergy (disorder) [facility] Repository (2 sources) NSAID Drug allergy (disorder) [facility] Repository (2 sources) NOVOCAIN Drug allergy (disorder) [facility] Repository (8 sources) Acetate; Translations: [ACETATE SALT] Drug Allergy 5 Hives [facility] (8 sources) Adhesive Tape; Translations: [ADHESIVE TAPE (ROSINS)] Propensity to adverse reactions to substance 1 Rash, Itching [facility] (8 sources) Ciprofloxacin; Translations: [CIPROFLOXACIN] Drug Allergy 9 Swelling [facility] Work Phone: (7 sources) Estradiol Drug Allergy 8 GI Upset [facility] Work Phone: (8 sources) Estradiol / Levonorgestrel; Translations: [ESTRADIOL-DANIELLE ORGESTREL] Drug Allergy 8 Rash [facility] Work Phone: (8 sources) Estrogens, Conjugated (LONG-TERM); Translations: [CONJUGATED ESTROGENS] Drug Allergy 8 GI Upset [facility] Work Phone: (8 sources) hydrOXYzine; Translations: [HYDROXYZINE] Drug Allergy 4 Other: See Comments [facility] Work Phone: (8 sources) Non-steroidal anti-inflammator y agent; Translations: [NSAIDS (NON-STEROIDAL ANTI-INFLAMMATOR Y DRUG)] Propensity to adverse reactions 8 GI Upset [facility] Work Phone: (8 sources) Penicillins; Translations: [PENICILLINS] Propensity to adverse reactions 5 [facility] Work Phone: (8 sources) Procaine; Translations: [PROCAINE HCL] Drug Allergy 5 [facility] Work Phone: (8 sources) Sulfonamides (Antibiotic); Translations: [SULFA (SULFONAMIDE ANTIBIOTICS)] Propensity to adverse reactions 5 [facility] Work Phone: (8 sources) Sodium Phosphates-Pramo x-Gly; Translations: [SODIUM PHOSPHATES-PRAMO X-GLY] Drug Intolerance 1 Intolerance [facility] Medications Current Medications Medication Drug Class(es) Dates Sig (Normalized) Sig (Original) Multiple Vitamin (MULTIVITAMIN ADULT PO) (2 sources) Multiple Vitamin (MULTIVITAMIN ADULT PO) Take by mouth. 0 Active Completed/Discontinued Medications Medication Drug Class(es) Dates Sig (Normalized) Sig (Original) acetaminophen 325 mg / oxyCODONE hydrochloride 5 mg oral tablet (7 sources) Opioid Agonist take 1 tablet by jose david th every four hours as needed oxyCODONE-acetamino phen (PERCOCET) 5-325 mg tablet Take 1 tablet by mouth every 4 hours as needed. 0 Active Problems Active Problems Problem Classification Problem Date Documented Da te Episodic/Chronic Anxiety disorders (7 sources) Anxiety; Translations: [Anxiety disorder, unspecified] Onset: 4 02-15-2015 Chronic Biliary tract disease (3 sources) Other specified diseases of biliary tract; Translations: [Other specified diseases of biliary tract] Onset: 7 Chronic Cataract (20 sources) Artificial lens present; Translations: [Presence of intraocular lens] Onset: 4 02-15-2015 Chronic Chronic obstructive pulmonary disease and bronchiectasis (1 source) Chronic obstructive pulmonary disease, unspecified; Translations: [Chronic obstructive pulmonary disease, unspecified] Onset: 7 Chronic Digestive congenital anomalies (1 source) Other congenital malformations of bile ducts; 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] Onset: 7 Chronic Diverticulosis and diverticulitis (7 sources) Diverticulosis of large intestine; Translations: [Diverticulosis of large intestine without perforation or abscess without bleeding] 02-15-2015 Chronic Esophageal disorders (7 sources) Gastroesophageal reflux disease without esophagitis; Translations: [Gastro-esophageal reflux disease without esophagitis] Onset: 5 02-15-2015 Chronic External Injury - Fall (2 sources) Unspecified fall, initial encounter; Translations: [Fall on same level from slipping, tripping and stumbling without subsequent striking against object, initial encounter] Onset: 7 External Injury - Other specified and classifiable (1 source) Caught, crushed, jammed, or pinched between moving objects, initial encounter; Translations: [Caught, crushed, jammed, or pinched between moving objects, initial encounter] Onset: 7 Headache; including migraine (7 sources) Headache; Translations: [Headache] 02-15-2015 Episodic Hemorrhoids (7 sources) Internal hemorrhoids; Translations: [Other hemorrhoids] 02-15-2015 Episodic Inflammation; infection of eye (except that caused by tuberculosis or sexually transmitteddisease) (7 sources) Bilateral punctate keratitis of eyes; Translations: [Punctate keratitis, bilateral] Onset: 8 07-01-2017 Chronic Nutritional deficiencies (12 sources) Vitamin D deficiency; Translations: [Vitamin D deficiency, unspecified] Onset: 2 02-15-2015 Chronic Occlusion or stenosis of precerebral arteries (7 sources) Left carotid artery stenosis; Translations: [Occlusion and stenosis of left carotid artery] Onset: 6 03-09-2021 Chronic Open wounds of extremities (2 sources) Laceration of muscle of left hand; Translations: [Laceration of unspecified muscle, fascia and tendon at wrist and hand level, left hand, initial encounter] 12-24-2022 Episodic Osteoarthritis (7 sources) Degenerative joint disease involving multiple joints; Translations: [Polyosteoarthritis, unspecified] Onset: 9 02-15-2015 Chronic Osteoporosis (8 sources) Other osteoporosis without current pathological fracture; Translations: [Osteoporosis] Onset: 2 03-09-2021 Chronic Other eye disorders (7 sources) Bilateral vitreous floaters; Translations: [Other vitreous opacities, bilateral] Onset: 5 02-18-2015 Chronic Other eye disorders (7 sources) Posterior vitreous detachment of right eye; Translations: [Vitreous degeneration, right eye] Onset: 7 07-31-2016 Chronic Other eye disorders (7 sources) Vitreous floaters; Translations: [Other vitreous opacities, unspecified eye] Onset: 7 07-31-2016 Chronic Other gastrointestinal disorders (7 sources) Irritable bowel syndrome with diarrhea; Translations: [Irritable bowel syndrome with diarrhea] Onset: 5 03-05-2015 Chronic Other injuries and conditions due to external causes (3 sources) Injury of right foot; Translations: [Unspecified injury of right foot, initial encounter] Episodic Other injuries and conditions due to external causes (1 source) Injury of head; Translations: [Unspecified injury of head, initial encounter] 11-23-2022 Episodic Other non-traumatic joint disorders (2 sources) Acute ankle pain; Translations: [Pain in right ankle and joints of right foot] Episodic Peripheral and visceral atherosclerosis (8 sources) Peripheral vascular disease; Translations: [Peripheral vascular disease, unspecified] 02-15-2015 Chronic Spondylosis; intervertebral disc disorders; other back problems (14 sources) Lumbar spondylosis; Translations: [Spondylosis without myelopathy or radiculopathy, lumbar region] 02-15-2015 Chronic Spondylosis; intervertebral disc disorders; other back problems (16 sources) Low back pain; Translations: [Neck pain] Onset: 6 02-15-2015 Episodic Superficial injury; contusion (4 sources) Abrasion of right hand, initial encounter; Translations: [Contusion of foot] Onset: 7 Episodic Unclassified (1 source) Unknown / UNK(Unknown) Onset: 7 Unclassified (7 sources) H/O: infectious disease; Translations: [History of Clostridium difficile] Onset: 5 03-05-2015 Varicose veins of lower extremity (2 sources) Varicose veins of lower extremity with inflammation; Translations: [Varicose veins of right lower extremity with inflammation] Episodic Past or Other Problems Problem Classification Problem Date Documented Da te Episodic/Chronic Anal and rectal conditions (14 sources) Anal fistula; Translations: [Anal fistula] Onset: 10-14-2014 02-15-2015 Episodic Fracture of lower limb (7 sources) Closed fracture of great toe; Translations: [Displaced fracture of proximal phalanx of unspecified great toe, subsequent encounter for fracture with nonunion] Onset: 12-24-2015 12-24-2015 Episodic Gastritis and duodenitis (7 sources) Acute gastritis; Translations: [Acute gastritis without bleeding] Onset: 06-10-2006 02-15-2015 Episodic Inflammation; infection of eye (except that caused by tuberculosis or sexually transmitteddisease) (7 sources) Meibomianitis; Translations: [Hordeolum internum unspecified eye, unspecified eyelid] Onset: 06-12-2014 02-15-2015 Episodic Inflammatory diseases of female pelvic organs (7 sources) Cyst of Bartholin's gland duct; Translations: [Cyst of Bartholin's gland] Onset: 10-31-2014 02-15-2015 Episodic Intestinal obstruction without hernia (7 sources) Small bowel obstruction; Translations: [Unspecified intestinal obstruction, unspecified as to partial versus complete obstruction] Onset: 04-22-2012 02-15-2015 Episodic Mycoses (7 sources) Onychomycosis due to dermatophyte ; Translations: [Tinea unguium] Onset: 06-10-2006 02-15-2015 Episodic Nonspecific chest pain (1 source) Chest pain Onset: 09-20-2016 Episodic Other connective tissue disease (7 sources) Tendinitis of right rotator cuff; Translations: [Other shoulder lesions, right shoulder] Onset: 01-21-2014 02-15-2015 Episodic Other eye disorders (7 sources) Dry eyes; Translations: [Dry eye syndrome of bilateral lacrimal glands] Onset: 01-03-2014 02-15-2015 Episodic Other eye disorders (14 sources) Tear film insufficiency; Translations: [Dry eye syndrome of unspecified lacrimal gland] Onset: 06-12-2014 02-15-2015 Episodic Other eye disorders (7 sources) Meibomian gland dysfunction of bilateral eyes; Translations: [Meibomian gland dysfunction right eye, upper and lower eyelids] Onset: 07-01-2017 07-01-2017 Episodic Other eye disorders (7 sources) Senile ectropion of right lower eyelid; Translations: [Senile ectropion of right lower eyelid] Onset: 07-16-2019 07-16-2019 Episodic Other eye disorders (7 sources) Senile ectropion of left lower eyelid; Translations: [Senile ectropion of left lower eyelid] Onset: 07-16-2019 07-16-2019 Episodic Other eye disorders (7 sources) Bilateral epiphora of eyes due to excessive tear production; Translations: [Epiphora due to excess lacrimation, bilateral lacrimal glands] Onset: 07-16-2019 07-16-2019 Episodic Other fractures (4 sources) Other fracture of first lumbar vertebra, initial encounter for closed fracture; Translations: [Wedge compression fracture of first lumbar vertebra, subsequent encounter for fracture with routine healing] Onset: 01-09-2017 Episodic Other gastrointestinal disorders (7 sources) Complete fecal incontinence; Translations: [Full incontinence of feces] Onset: 03-05-2015 03-05-2015 Episodic Other gastrointestinal disorders (7 sources) Diarrhea; Translations: [Diarrhea, unspecified] Onset: 04-30-2015 03-09-2021 Episodic Other injuries and conditions due to external causes (1 source) Unspecified injury of right foot, initial encounter; Translations: [Foot injury, right, initial encounter] Onset: 08-26-2022 Episodic Other non-traumatic joint disorders (1 source) Pain in right hip; Translations: [Pain in right hip] Onset: 08-26-2019 Episodic Other non-traumatic joint disorders (1 source) Pain in right ankle and joints of right foot; Translations: [Acute right ankle pain] Onset: 08-26-2022 Episodic Other nutritional; endocrine; and metabolic disorders (7 sources) Weight loss; Translations: [Abnormal weight loss] Onset: 03-05-2015 03-05-2015 Episodic Residual codes; unclassified (7 sources) FH: Crohn's disease; Translations: [Family history of other diseases of the digestive system] Onset: 03-05-2015 03-05-2015 Episodic Screening and history of mental health and substance abuse codes (7 sources) Ex-smoker; Translations: [Personal history of nicotine dependence] Onset: 05-06-2015 03-09-2021 Episodic Skull and face fractures (3 sources) Other fracture of base of skull, initial encounter for closed fracture; Translations: [Other fracture of base of skull, initial encounter for closed fracture] Onset: 12-07-2016 Episodic Results Test Name Value Interpretation Reference Range Facil it Vital Signs Date Time Vital Sign Value Performing Clinician Facility 12-24-2022 18:37-0400 Body temperature 98.4 [degF] Tracey Praisler-Wood CAMERA MACHINIST.TRAFFIC SURVEY TECHNICIAN Work Phone: [facility] 12-24-2022 18:37-0400 Body weight 45.81 kg Tracey Prabobler-Vijay CAMERA MACHINIST.TRAFFIC SURVEY TECHNICIAN Work Phone: [facility] 12-24-2022 18:37-0400 Diastolic blood pressure 78 mm[Hg] Tracey Praisler-Wood CAMERA MACHINIST.TRAFFIC SURVEY TECHNICIAN Work Phone: [facility] 12-24-2022 18:37-0400 Heart rate 84 /min Tracey Praisler-Wood CAMERA MACHINIST.TRAFFIC SURVEY TECHNICIAN Work Phone: [facility] 12-24-2022 18:37-0400 Respiratory rate 18 /min Tracey Praisler-Wood CAMERA MACHINIST.TRAFFIC SURVEY TECHNICIAN Work Phone: [facility] 12-24-2022 18:37-0400 SaO2% (BldA) [Mass fraction] 99 % Tracey Praisler-Wood CAMERA MACHINIST.TRAFFIC SURVEY TECHNICIAN Work Phone: [facility] 12-24-2022 18:37-0400 Systolic blood pressure 126 mm[Hg] Rtacey Praisler-Wood CAMERA MACHINIST.TRAFFIC SURVEY TECHNICIAN Work Phone: [facility] 08-26-2022 14:03-0400 Body temperature 98.2 [degF] El Hardy CAMERA MACHINIST.TRAFFIC SURVEY TECHNICIAN Work Phone: [facility] 08-26-2022 14:03-0400 Body weight 45.9 kg El Pendlebury CAMERA MACHINIST.TRAFFIC SURVEY TECHNICIAN Work Phone: [facility] 08-26-2022 14:03-0400 Diastolic blood pressure 80 mm[Hg] El Pendlebury CAMERA MACHINIST.TRAFFIC SURVEY TECHNICIAN Work Phone: [facility] 08-26-2022 14:03-0400 Heart rate 88 /min El Pendlebury CAMERA MACHINIST.TRAFFIC SURVEY TECHNICIAN Work Phone: [facility] 08-26-2022 14:03-0400 Respiratory rate 18 /min El Pendlebury CAMERA MACHINIST.TRAFFIC SURVEY TECHNICIAN Work Phone: [facility] 08-26-2022 14:03-0400 SaO2% (BldA) [Mass fraction] 96 % El Pendlebury CAMERA MACHINIST.TRAFFIC SURVEY TECHNICIAN Work Phone: [facility] 08-26-2022 14:03-0400 Systolic blood pressure 128 mm[Hg] El Pendlebury CAMERA MACHINIST.TRAFFIC SURVEY TECHNICIAN Work Phone: [facility] 08-17-2022 17:49-0400 Body temperature 98.6 [degF] El Pendlebury CAMERA MACHINIST.TRAFFIC SURVEY TECHNICIAN Work Phone: [facility] 08-17-2022 17:49-0400 Body weight 44.73 kg El Pendlebury CAMERA MACHINIST.TRAFFIC SURVEY TECHNICIAN Work Phone: [facility] 08-17-2022 17:49-0400 Diastolic blood pressure 74 mm[Hg] El Pendlebury CAMERA MACHINIST.TRAFFIC SURVEY TECHNICIAN Work Phone: [facility] 08-17-2022 17:49-0400 Heart rate 84 /min El Pendlebury CAMERA MACHINIST.TRAFFIC SURVEY TECHNICIAN Work Phone: [facility] 08-17-2022 17:49-0400 Respiratory rate 16 /min El Pendlebury CAMERA MACHINIST.TRAFFIC SURVEY TECHNICIAN Work Phone: [facility] 08-17-2022 17:49-0400 SaO2% (BldA) [Mass fraction] 96 % El Pendlebury CAMERA MACHINIST.TRAFFIC SURVEY TECHNICIAN Work Phone: [facility] 08-17-2022 17:49-0400 Systolic blood pressure 120 mm[Hg] El Hardy CAMERA MACHINIST.TRAFFIC SURVEY TECHNICIAN Work Phone: [facility] 07-16-2020 14:30-0400 Body height 157.5 cm Jessica Cano APRN TRAFFIC SURVEY TECHNICIAN Work Phone: [facility] 07-16-2020 14:30-0400 Body mass index (BMI) [Ratio] 18.84 kg/m2 Jessica Cano EDILIA TRAFFIC SURVEY TECHNICIAN Work Phone: [facility] 07-16-2020 14:30-0400 Body weight 46.72 kg Jessica Cano APRN TRAFFIC SURVEY TECHNICIAN Work Phone: [facility] 07-16-2020 14:30-0400 Diastolic blood pressure 64 mm[Hg] Jessica Cano APRN TRAFFIC SURVEY TECHNICIAN Work Phone: [facility] 07-16-2020 14:30-0400 Heart rate 71 /min Jessica Cano EDILIA TRAFFIC SURVEY TECHNICIAN Work Phone: [facility] 07-16-2020 14:30-0400 Systolic blood pressure 118 mm[Hg] Jessica Cano APRN TRAFFIC SURVEY TECHNICIAN Work Phone: [facility] Encounters Encounter Date Encounter Type Care Provider Facility Start: 12-25-2022 End: 12-25-2022 ambulatory TIERRA PATEL Facility:[facility] Start: 12-25-2022 End: 12-25-2022 Patient encounter procedure Tracey Valle CAMERA MACHINIST.TRAFFIC SURVEY TECHNICIAN Work Phone: [facility] Care Plan of Treatment Date Care Activity Detail Author Start: 03-22-2026 Urine microalbumin profile [facility] Start: 11-12-2022 Influenza [facility] Start: 03-14-2022 ADVANCE DIRECTIVE DISCUSSION ADVANCE DIRECTIVE DISCUSSION [facility] Start: 03-14-2022 DEPRESSION ASSESSMENT DEPRESSION ASSESSMENT [facility] Start: 11-12-2020 Influenza vaccination given INFLUENZA VACCINE (Season Ended) [facility] Start: 10-20-2020 End: 10-20-2020 Patient encounter procedure 10/20/2020 Appointment [facility] Sharona Brothers MD [address] [place] [address] [phone] [facility] [place] Start: 08-05-2020 End: 08-05-2020 Patient encounter procedure 08/05/2020 Appointment [facility] Jessica Cano APRN TRAFFIC SURVEY TECHNICIAN [address] [facility] [address] [place] [address] [phone] [facility] Start: 06-12-2019 DIABETES SCREEN DIABETES SCREEN [facility] Start: 06-12-2019 Diabetes Screening Diabetes Screening [facility] Start: 2002 Fall risk assessment FALL RISK [facility] Start: 2002 Glaucoma screening GLAUCOMA/EYE EXAM AGE 65+ [facility] Start: 2002 Osteoporosis risk assessment done BONE DENSITY SCREENING [facility] Start: 12-01-1987 SHINGRIX VACCINE (1 of 2) SHINGRIX VACCINE (1 of 2) [facility] Start: 12-01-1987 Zoster vaccine hzv live for subcutaneous use ZOSTER (SHINGLES) VACCINE (1 of 2) [facility] Start: 1977 Screening mammography MAMMOGRAM [facility] Start: 12-01-1955 ANNUAL WELLNESS VISIT ANNUAL WELLNESS VISIT [facility] Start: 1949 Depression screening using PHQ-9 (Patient Health Questionnaire 9) score DEPRESSION SCREENING [facility] Start: 1948 Diphtheria + pertussis + tetanus vaccine (product) DTAP/TDAP/TD VACCINE (1 - Tdap) [facility] Start: 05-30-1936 COVID-19 VACCINE (#1) COVID-19 VACCINE (#1) [facility] End: 08-16-2021 Venous Insufficiency Study-Bilat Lower Ext Venous Insufficiency Study-Bilat Lower Ext Cardiac Services Routine Varicose veins of lower extremity with inflammation, bilateral 1 Occurrences starting 07/16/2020 until 08/16/2021 [facility] Immunizations Immunization Date Immunization Notes Care Provider Violette dupree 02-22-2022 influenza virus vaccine, unspecified formulation Momo Gongora APRN.TRAFFIC SURVEY TECHNICIAN Work Phone: [facility] 01-01-2019 influenza virus vaccine, unspecified formulation Jessica Cano APRN TRAFFIC SURVEY TECHNICIAN Work Phone: [facility] 03-22-2016 tetanus toxoid, redu laura diphtheria toxoid, and acellular pertussis vaccine, adsorbed El Pendlebury CAMERA MACHINIST.TRAFFIC SURVEY TECHNICIAN Work Phone: [facility] 05-06-2015 pneumococcal conjuga te vaccine, 13 valent El P[place]lebury CAMERA MACHINIST.TRAFFIC SURVEY TECHNICIAN Work Phone: [facility] Work Phone: 12-18-2014 influenza, high dose seasonal, preservative-free El Pendlebury CAMERA MACHINIST.TRAFFIC SURVEY TECHNICIAN Work Phone: [facility] 01-08-2014 influenza, seasonal, injectable El Pendlebury CAMERA MACHINIST.TRAFFIC SURVEY TECHNICIAN Work Phone: [facility] 01-04-2013 influenza virus vaccine, unspecified formulation El Pendlebury CAMERA MACHINIST.TRAFFIC SURVEY TECHNICIAN Work Phone: [facility] 12-27-2011 influenza virus vaccine, unspecified formulation El Pendlebury CAMERA MACHINIST.TRAFFIC SURVEY TECHNICIAN Work Phone: [facility] 01-22-2010 influenza virus vaccine, unspecified formulation El Pendlebury CAMERA MACHINIST.TRAFFIC SURVEY TECHNICIAN Work Phone: [facility] 12-14-2008 influenza virus vaccine, unspecified formulation El Pendlebury CAMERA MACHINIST.TRAFFIC SURVEY TECHNICIAN Work Phone: [facility] Work Phone: 01-18-2008 influenza virus vaccine, unspecified formulation El Pendlebury CAMERA MACHINIST.TRAFFIC SURVEY TECHNICIAN Work Phone: [facility] Work Phone: 01-23-2007 influenza virus vaccine, unspecified formulation El Pendlebury CAMERA MACHINIST.TRAFFIC SURVEY TECHNICIAN Work Phone: [facility] Work Phone: 01-11-2006 influenza virus vaccine, unspecified formulation El Pendlebury CAMERA MACHINIST.TRAFFIC SURVEY TECHNICIAN Work Phone: [facility] 02-09-2005 influenza virus vaccine, unspecified formulation El Pendlebury CAMERA MACHINIST.TRAFFIC SURVEY TECHNICIAN Work Phone: [facility] Work Phone: 02-09-2005 pneumococcal polysaccharide vaccine, 23 valent El Antony CAMERA MACHINIST.TRAFFIC SURVEY TECHNICIAN Work Phone: [facility] Work Phone: 07-12-2004 tetanus and diphther ia toxoids, not adsorbed, for adult use El Rubiomargaux CAMERA MACHINIST.TRAFFIC SURVEY TECHNICIAN Work Phone: [facility] Work Phone: Payers Date Payer Category Payer Medicare [id number] 2020 Medicare ANTHEM MEDICARE ADVANTAGE [facility] MEDIC[facility] ADVANT[facility] [id number] 2020-Present [phone] [address] [address] [place], [place] [id number] Medicare [id number] 2020 Unknown ANTHEM BLUE CROS S AND BLUE SHIELD ANTHEM MEDIBLUE HMO [id number] 2020-Present [phone] [address] [place] [address] [facility] [id number] 2016 Unknown [id number] 2016 Medicare [id number] 1937 Unknown [id number] 1 1937 Unknown [id number] 1 1937 Unknown [id number] 1 1937 Unknown [id number] 1 1937 Unknown [id number] 1 1937 Unknown [id number] 1 1937 Unknown [id number] 1 Medicare [id number] Social History Date Type Detail Facility [facility]: [facility] Start: 07-16-2020 End: 08-17-2022 Tobacco use and exposure Never used [facility] Start: 07-16-2020 Alcohol intake Lifetime non-d andrey (finding) [facility] Start: 07-16-2020 History SDOH Alcohol Frequency 1 [facility] Start: 1935 Sex Assigned At Not on file G [facility] Start: 08-17-2022 Tobacco smoking stat [facility] Ex-smoker [facility] Work Phone: History of tobacco use Current smoker [facility] Work Phone: History of tobacco use Cigarette Smoker [facility] Work Phone: Start: 08-17-2022 End: 08-31-2022 Cigarettes smoked current (pack per day) - Reported 0.5 [facility] Start: 08-17-2022 End: 12-24-2022 Alcohol intake Current non-drinker of alcohol (finding) [facility] Start: 08-17-2022 Tobacco Comment quit 1992 [facility] Start: 08-31-2022 End: 11-23-2022 Tobacco use panel [facility] National Score (1-10 0), lower number is lower risk 70 [facility] Clinical Notes 11-25-2010 to 12-25-2022 Patient InstructionsTracey Valle APRN.CNP - 12/25/2022 2:41 PM EDTPatient Tracey Conklin APRN.CNP - 12/24/2022 6:56 PM EDTMomo Gongora APRN.CNP - 11/23/2022 6:54 PM EDT Note Date & Type Note Facility 12-25-2022 Note HNO ID: [id number] Author: Tracey Valle APRN.CNP Service: ? Author Type: Nurse Practitioner Type: Progress Notes Filed: 12/25/2022 2:48 PM Note Text: Subjective HPI Esther Boone is a 87 year old female who presents with a cut on her left hand that was sustained while getting a cast cut off. She was seen here last night for the same, Surgicell absorbable hemostat and a pressure dressing was used and the bleeding was controlled when she left here. Sometime overnight she bled through the bandage and they have been unable to get the bleeding stopped. She denies pain. Review of Systems Constitutional: Negative for chills and fever. Musculoskeletal: Negative for falls and joint pain. Skin: Negative for itching and rash. 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 Fosamax started. Osteoporosis BMD 11/11/2015 Peripheral vascular disease (HCC) Personal history of unspecified urinary disorder Right shoulder pain 01/21/2014 SBO (small bowel obstruction) 04/22/2012 SI joint arthritis Syncope 09/21/2012 Tear film insufficiency, unspecified - Both Eyes 06/12/2014 Tendinitis of right rotator cuff 01/21/2014 Vitamin D deficiency 06/21/2011 PAST SURGICAL HISTORY Procedure Laterality Date BONE DENSITY MULTIPLE SITES 09/08/2004 CHOLECYSTECTOMY 1980s cholecystectomy COLONOSCOPY W/BIOPSY 08/10/2016 negative for colitis COLONOSCOPY FLX DX W/COLLJ SPEC WHEN PFRMD 06/12/2001 Colonoscopy COLONOSCOPY FLX DX W/COLLJ SPEC WHEN PFRMD 04/15/2008 Colonoscopy COLONOSCOPY W/BIOPSY SINGLE/MULTIPLE 09/22/12 normal colon, repeat 10 yrs ENTRC RESCJ SMALL INTESTINE 1 RESCJ AND ANAST 05/19/12 20cm ileum resection ESOPHAGOGASTRODUODENOSCOPY TRANSORAL DIAGNOSTIC 06/10/2006 EGD HEMORRHOIDECTOMY INT AND XTRNL 2/> COLUMN/ELAIZAR 2006 LAPAROSCOPY COLECTOMY PARTIAL W/ANASTOMOSIS 08/20/08 for diverticulitis, appendectomy at same time LIGJ DIVJ AND/EXCJ VARICOSE VEIN CLUSTER 1 LEG Varicose Vein Surgery right leg PAST SURGICAL HISTORY OF 1997 and 2006 hiatal hernia surgery x 2 PAST SURGICAL HISTORY OF 200? left breast cyst bengin PAST SURGICAL HISTORY OF bile duct surg @ [place] PAST SURGICAL HISTORY OF 03/2015 had vein surger for varicose issues POST-CATARACT LASER SURGERY Yag Capsulotomy SHOULDER ARTHROSCOPY/SURG 06/18/10 Lt shoulder Arthroscopopy Sub acromial decompression SURG TX ANAL FISTULA INTERSPHINCTERIC 10/21/14 ? perianal versus Bartholin's cyst TOTAL ABDOMINAL HYSTERECT W/WO RMVL TUBE OVARY 1995 BSO bladder suspension XCAPSL CTRC RMVL INSJ IO LENS PROSTH W/O ECP Cataract Extraction with PC IOL Right eye restor lens Left eye Crystal lens ALLERGIES Cipro [Ciprofloxacin], Climara Pro [Estradiol-Levonorgestrel], Acetate Salt, Adhesive Tape (Rosins), Estradiol, Fleet Phospho-Soda Accu-Prep [Sodium Kfzhlbenii-Sckrlm-Rop], Hydroxyzine, Novocain [Procaine Hcl], Nsaids (Non-Steroidal Anti-Inflammatory Drug), Penicillins, Premarin [Conjugated Estrogens], and Sulfa (Sulfonamide Antibiotics) MEDICATIONS aspirin, enteric coated (ASPIRIN, ENTERIC COATED) 81 mg EC tablet Take 81 mg by mouth once daily. Bacillus coagulans (PROBIOTIC, B. COAGULANS, ORAL) Take by mouth. calcium carb/vit D2/minerals (CALTRATE PLUS ORAL) Take 1 tablet by mouth twice daily. calcium carbonate 600 mg-cholecalciferol 400 units (CALCIUM 600 + D) 600 mg(1,500mg) -400 unit tab Take 1 tablet by mouth twice daily. Cholecalciferol, Vitamin D3, 2,000 unit cap Take 1 tablet by mouth once daily. cyanocobalamin, vitamin B-12, (B-12 DOTS ORAL) Take by mouth. diclofenac, EC, (VOLTAREN) 75 mg EC tablet Take 1 tablet by mouth twice daily as needed. For pain/inflammation. Take with food. escitalopram oxalate (LEXAPRO) 5 mg tablet Take 5 mg by mouth once daily. fluticasone (FLONASE) 50 mcg/actuation nasal spray Use 1 [place] in each nostril once daily. ONE DAILY MULTIVITAMIN ORAL Take by mouth once daily. vitamins oxyCODONE-acetaminophen (PERCOCET) 5-325 mg tablet Take 1 tablet by mouth every 4 hours as needed. Potassium 99 mg tab Take 1 tablet by mouth as needed. vit calc,iron,folic ( #2 ORAL) Joseluis (more content not included)... [facility] 12-25-2022 Instructions Tracey Valle APRN.DEBORA - 12/25/2022 2:47 PM EDT ASSESSMENT/PLAN: 1. Laceration of left hand without foreign body, subsequent encounter - ICD9: V58.89, ICD10: S61.412D - wound was closed with Exofin surgical glue. A non-stick bandage and pressure wrap was applied. Bleeding was controlled when she left here. She is advised to go to ER if bleeding resumes in order to have her blood clotting times checked. I did not feel sutures would have been helpful as this would be creating more wounds which would likely bleed also. Tracey Valle APRN.TRAFFIC SURVEY TECHNICIAN documented in this encounter [facility] 12-25-2022 History of Presen t illness Narrative Subjective HPI Esther Boone is a 87 year old female who presents with a cut on her left hand that was sustained while getting a cast cut off. She was seen here last night for the same, Surgicell absorbable hemostat and a pressure dressing was used and the bleeding was controlled when she left here. Sometime overnight she bled through the bandage and they have been unable to get the bleeding stopped. She denies pain. Review of Systems Constitutional: Negative for chills and fever. Musculoskeletal: Negative for falls and joint pain. Skin: Negative for itching and rash. 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 Fosamax started. Osteoporosis BMD 11/11/2015 Peripheral vascular disease (HCC) Personal history of unspecified urinary disorder Right shoulder pain 01/21/2014 SBO (small bowel obstruction) 04/22/2012 SI joint arthritis Syncope 09/21/2012 Tear film insufficiency, unspecified - Both Eyes 06/12/2014 Tendinitis of right rotator cuff 01/21/2014 Vitamin D deficiency 06/21/2011 PAST SURGICAL HISTORY Procedure Laterality Date BONE DENSITY MULTIPLE SITES 09/08/2004 CHOLECYSTECTOMY 1980s cholecystectomy COLONOSCOPY W/BIOPSY 08/10/2016 negative for colitis COLONOSCOPY FLX DX W/COLLJ SPEC WHEN PFRMD 06/12/2001 Colonoscopy COLONOSCOPY FLX DX W/COLLJ SPEC WHEN PFRMD 04/15/2008 Colonoscopy COLONOSCOPY W/BIOPSY SINGLE/MULTIPLE 09/22/12 normal colon, repeat 10 yrs ENTRC RESCJ SMALL INTESTINE 1 RESCJ & ANAST 05/19/12 20cm ileum resection ESOPHAGOGASTRODUODENOSCOPY TRANSORAL DIAGNOSTIC 06/10/2006 EGD HEMORRHOIDECTOMY INT & XTRNL 2/> COLUMN/ELIAZAR 2006 LAPAROSCOPY COLECTOMY PARTIAL W/ANASTOMOSIS 08/20/08 for diverticulitis, appendectomy at same time LIGJ DIVJ &/EXCJ VARICOSE VEIN CLUSTER 1 LEG Varicose Vein Surgery right leg PAST SURGICAL HISTORY OF 1997 and 2006 hiatal hernia surgery x 2 PAST SURGICAL HISTORY OF 200? left breast cyst bengin PAST SURGICAL HISTORY OF bile duct surg @ [place] PAST SURGICAL HISTORY OF 03/2015 had vein surger for varicose issues POST-CATARACT LASER SURGERY Yag Capsulotomy SHOULDER ARTHROSCOPY/SURG 06/18/10 Lt shoulder Arthroscopopy Sub acromial decompression SURG TX ANAL FISTULA INTERSPHINCTERIC 10/21/14 ? perianal versus Bartholin's cyst TOTAL ABDOMINAL HYSTERECT W/WO RMVL TUBE OVARY 1995 BSO bladder suspension XCAPSL CTRC RMVL INSJ IO LENS PROSTH W/O ECP Cataract Extraction with PC IOL Right eye restor lens Left eye Crystal lens ALLERGIES Cipro [Ciprofloxacin], Climara Pro [Estradiol-Levonorgestrel], Acetate Salt, Adhesive Tape (Rosins), Estradiol, Fleet Phospho-Soda Accu-Prep [Sodium Hhbcpglscu-Timwxh-Zex], Hydroxyzine, Novocain [Procaine Hcl], Nsaids (Non-Steroidal Anti-Inflammatory Drug), Penicillins, Premarin [Conjugated Estrogens], and Sulfa (Sulfonamide Antibiotics) MEDICATIONS aspirin, enteric coated (ASPIRIN, ENTERIC COATED) 81 mg EC tablet Take 81 mg by mouth once daily. Bacillus coagulans (PROBIOTIC, B. COAGULANS, ORAL) Take by mouth. calcium carb/vit D2/minerals (CALTRATE PLUS ORAL) Take 1 tablet by mouth twice daily. calcium carbonate 600 mg-cholecalciferol 400 units (CALCIUM 600 + D) 600 mg(1,500mg) -400 unit tab Take 1 tablet by mouth twice daily. Cholecalciferol, Vitamin D3, 2,000 unit cap Take 1 tablet by mouth once daily. cyanocobalamin, vitamin B-12, (B-12 DOTS ORAL) Take by mouth. diclofenac, EC, (VOLTAREN) 75 mg EC tablet Take 1 tablet by mouth twice daily as needed. For pain/inflammation. Take with food. escitalopram oxalate (LEXAPRO) 5 mg tablet Take 5 mg by mouth once daily. fluticasone (FLONASE) 50 mcg/actuation nasal spray Use 1 [place] in each nostril once daily. ONE DAILY MULTIVITAMIN ORAL Take by mouth once daily. vitamins oxyCODONE-acetaminophen (PERCOCET) 5-325 mg tablet Take 1 tablet by mouth every 4 hours as needed. Potassium 99 mg tab Take 1 tablet by mouth as needed. vit calc,iron,folic ( #2 ORAL) Take by mouth. White Petrolatum-Mineral Oil 57.3-42.5 % ointment Use 1 application in both eyes daily at bedtime. FAMILY HISTORY Problem Relation Age of Onset other (PNEUMONIA) Mother FROM THIS. Stroke Brother other (LUNG DISEASE) Sister copd smoker Social History Tobacco Use Smoking status: Former Packs/day: 0.50 Years: 10.00 Additional pack years: 0.00 Total pack years: 5.00 Types: Cigarettes Smokeless tobacco: Never Tobacco comments: quit 1992 Vaping Use Vaping Use: Never used Substance Use Topics Alcohol use: No Drug use: No Objective Physical Exam Vitals and nursing note reviewed. Constitutional: Appearance: Normal appearance. Cardiovascular: Rate and Rhythm: Normal rate. Pulmonary: Effort: Pulmonary effort is normal. Musculoskeletal: General: Signs of injury present. No swelling or tenderness. Skin: Coloration: Skin is not pale. Findings: No bruising, erythema or rash. Neurological: Mental Status: She is alert. ASSESSMENT/PLAN: 1. Laceration of left hand without foreign body, subsequent encounter - ICD9: V58.89, ICD10: S61.412D - wound was closed with Exofin surgical glue. A non-stick bandage and pressure wrap was applied. Bleeding was controlled when she left here. She is advised to go to ER if bleeding resumes in order to have her blood clotting times checked. I did not feel sutures would have been helpful as this would be creating more wounds which would likely bleed also. Tracey Valle APRN.DEBORA documented in this encounter [facility] 12-24-2022 Note HNO ID: [id number] Author: Tracey Valle APRN.DEBORA Service: ? Author Type: Nurse Practitioner Type: Progress Notes Filed: 12/24/2022 7:03 PM Note Text: Subjective Laceration Esther Boone is a 87 year old female who presents with a laceration on her left hand. She got a cast removed at the doctor's office earlier in the evening. She was cut in the process. They put a bandaid on it and wrapped the cut and sent her home with instructions to check the area in 2 days. She has bled through both the bandaid and the outer wrap. She is on aspirin daily. She denies pain at the site. Review of Systems Constitutional: Negative for chills and fever. Musculoskeletal: Negative for joint pain. Skin: Negative for itching and rash. BP 126/78 Pulse 84 Temp 36.9 ?C (98.4 ?F) Resp 18 Wt 45.8 kg (101 lb) SpO2 99% BMI 18.47 kg/m? 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 Fosamax started. Osteoporosis BMD 11/11/2015 Peripheral vascular disease (HCC) Personal history of unspecified urinary disorder Right shoulder pain 01/21/2014 SBO (small bowel obstruction) 04/22/2012 SI joint arthritis Syncope 09/21/2012 Tear film insufficiency, unspecified - Both Eyes 06/12/2014 Tendinitis of right rotator cuff 01/21/2014 Vitamin D deficiency 06/21/2011 PAST SURGICAL HISTORY Procedure Laterality Date BONE DENSITY MULTIPLE SITES 09/08/2004 CHOLECYSTECTOMY 1980s cholecystectomy COLONOSCOPY W/BIOPSY 08/10/2016 negative for colitis COLONOSCOPY FLX DX W/COLLJ SPEC WHEN PFRMD 06/12/2001 Colonoscopy COLONOSCOPY FLX DX W/COLLJ SPEC WHEN PFRMD 04/15/2008 Colonoscopy COLONOSCOPY W/BIOPSY SINGLE/MULTIPLE 09/22/12 normal colon, repeat 10 yrs ENTRC RESCJ SMALL INTESTINE 1 RESCJ AND ANAST 3/8/13 20cm ileum resection ESOPHAGOGASTRODUODENOSCOPY TRANSORAL DIAGNOSTIC 06/10/2006 EGD HEMORRHOIDECTOMY INT AND XTRNL 2/> COLUMN/ELIAZAR 2006 LAPAROSCOPY COLECTOMY PARTIAL W/ANASTOMOSIS 08/20/08 for diverticulitis, appendectomy at same time LIGJ DIVJ AND/EXCJ VARICOSE VEIN CLUSTER 1 LEG Varicose Vein Surgery right leg PAST SURGICAL HISTORY OF 1997 and 2006 hiatal hernia surgery x 2 PAST SURGICAL HISTORY OF 200? left breast cyst bengin PAST SURGICAL HISTORY OF bile duct surg @ [place] PAST SURGICAL HISTORY OF 03/2015 had vein surger for varicose issues POST-CATARACT LASER SURGERY Yag Capsulotomy SHOULDER ARTHROSCOPY/SURG 06/18/10 Lt shoulder Arthroscopopy Sub acromial decompression SURG TX ANAL FISTULA INTERSPHINCTERIC 10/21/14 ? perianal versus Bartholin's cyst TOTAL ABDOMINAL HYSTERECT W/WO RMVL TUBE OVARY 1995 BSO bladder suspension XCAPSL CTRC RMVL INSJ IO LENS PROSTH W/O ECP Cataract Extraction with PC IOL Right eye restor lens Left eye Crystal lens ALLERGIES Cipro [Ciprofloxacin], [place]imara Pro [Estradiol-Levonorgestrel], Acetate Salt, Adhesive Tape (Rosins), Estradiol, Fleet Phospho-Soda Accu-Prep [Sodium Bjigloerco-Zhtxqn-Ksw], Hydroxyzine, Novocain [Procaine Hcl], Nsaids (Non-Steroidal Anti-Inflammatory Drug), Penicillins, Premarin [Conjugated Estrogens], and Sulfa (Sulfonamide Antibiotics) MEDICATIONS aspirin, enteric coated (ASPIRIN, ENTERIC COATED) 81 mg EC tablet Take 81 mg by mouth once daily. Bacillus coagulans (PROBIOTIC, B. COAGULANS, ORAL) Take by mouth. calcium carb/vit D2/minerals (CALTRATE PLUS ORAL) Take 1 tablet by mouth twice daily. calcium carbonate 600 mg-cholecalciferol 400 units (CALCIUM 600 + D) 600 mg(1,500mg) -400 unit tab Take 1 tablet by mouth twice daily. Cholecalciferol, Vitamin D3, 2,000 unit cap Take 1 tablet by mouth once daily. cyanocobalamin, vitamin B-12, (B-12 DOTS ORAL) Take by mouth. diclofenac, EC, (VOLTAREN) 75 mg EC tablet Take 1 tablet by mouth twice daily as needed. For pain/inflammation. Take with food. escitalopram oxalate (LEXAPRO) 5 mg tablet Take 5 mg by mouth once daily. fluticasone (FLONASE) 50 mcg/actuation nasal spray Use 1 [place] in each nostril once daily. ONE DAILY MULTIVITAMIN ORAL Take by mouth once daily. vitamins oxyCODONE-acetaminophen (PERCOCET) 5-325 mg tablet Take 1 tablet by mouth every 4 hours as needed (more content not included)... [facility] 12-24-2022 Instructions Tracey Valle APRN.TRAFFIC SURVEY TECHNICIAN - 12/24/2022 7:03 PM EDT ASSESSMENT/PLAN: 1. Laceration of muscle of left hand - ICD9: 842.10, ICD10: S66.922A - hand and wound cleaned with sterile water. Surgicell mesh applied to wound. Wrapped with kerlix and covered with loose coban wrap. - patient instructed to keep this dressing on for 24 hours then remove, but DO NOT peel off the surgicell as this will disrupt the clot and she will bleed again. The surgicell will eventually fall off. The edges may be trimmed close to the skin if desired. Return here is bleeding resumes. - Discussed red flags and need for immediate medical evaluation if any occur. Tracey Valle APRN.TRAFFIC SURVEY TECHNICIAN documented in this encounter [facility] 12-24-2022 History of Presen t illness Narrative Images from the original note were not included. Subjective Laceration Esther Boone is a 87 year old female who presents with a laceration on her left hand. She got a cast removed at the doctor's office earlier in the evening. She was cut in the process. They put a bandaid on it and wrapped the cut and sent her home with instructions to check the area in 2 days. She has bled through both the bandaid and the outer wrap. She is on aspirin daily. She denies pain at the site. Review of Systems Constitutional: Negative for chills and fever. Musculoskeletal: Negative for joint pain. Skin: Negative for itching and rash. 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 Fosamax started. Osteoporosis BMD 11/11/2015 Peripheral vascular disease (HCC) Personal history of unspecified urinary disorder Right shoulder pain 01/21/2014 SBO (small bowel obstruction) 04/22/2012 SI joint arthritis Syncope 09/21/2012 Tear film insufficiency, unspecified - Both Eyes 06/12/2014 Tendinitis of right rotator cuff 01/21/2014 Vitamin D deficiency 06/21/2011 PAST SURGICAL HISTORY Procedure Laterality Date BONE DENSITY MULTIPLE SITES 09/08/2004 CHOLECYSTECTOMY 1980s cholecystectomy COLONOSCOPY W/BIOPSY 08/10/2016 negative for colitis COLONOSCOPY FLX DX W/COLLJ SPEC WHEN PFRMD 06/12/2001 Colonoscopy COLONOSCOPY FLX DX W/COLLJ SPEC WHEN PFRMD 04/15/2008 Colonoscopy COLONOSCOPY W/BIOPSY SINGLE/MULTIPLE 09/22/12 normal colon, repeat 10 yrs ENTRC RESCJ SMALL INTESTINE 1 RESCJ & ANAST 05/19/12 20cm ileum resection ESOPHAGOGASTRODUODENOSCOPY TRANSORAL DIAGNOSTIC 06/10/2006 EGD HEMORRHOIDECTOMY INT & XTRNL 2/> COLUMN/ELIAZAR 2006 LAPAROSCOPY COLECTOMY PARTIAL W/ANASTOMOSIS 08/20/08 for diverticulitis, appendectomy at same time LIGJ DIVJ &/EXCJ VARICOSE VEIN CLUSTER 1 LEG Varicose Vein Surgery right leg PAST SURGICAL HISTORY OF 1997 and 2006 hiatal hernia surgery x 2 PAST SURGICAL HISTORY OF 200? left breast cyst bengin PAST SURGICAL HISTORY OF bile duct surg @ [place] PAST SURGICAL HISTORY OF 03/2015 had vein surger for varicose issues POST-CATARACT LASER SURGERY Yag Capsulotomy SHOULDER ARTHROSCOPY/SURG 06/18/10 Lt shoulder Arthroscopopy Sub acromial decompression SURG TX ANAL FISTULA INTERSPHINCTERIC 10/21/14 ? perianal versus Bartholin's cyst TOTAL ABDOMINAL HYSTERECT W/WO RMVL TUBE OVARY 1995 BSO bladder suspension XCAPSL CTRC RMVL INSJ IO LENS PROSTH W/O ECP Cataract Extraction with PC IOL Right eye restor lens Left eye Crystal lens ALLERGIES Cipro [Ciprofloxacin], Climara Pro [Estradiol-Levonorgestrel], Acetate Salt, Adhesive Tape (Rosins), Estradiol, Fleet Phospho-Soda Accu-Prep [Sodium Xjasdigcoa-Iqanpi-Gak], Hydroxyzine, Novocain [Procaine Hcl], Nsaids (Non-Steroidal Anti-Inflammatory Drug), Penicillins, Premarin [Conjugated Estrogens], and Sulfa (Sulfonamide Antibiotics) MEDICATIONS aspirin, enteric coated (ASPIRIN, ENTERIC COATED) 81 mg EC tablet Take 81 mg by mouth once daily. Bacillus coagulans (PROBIOTIC, B. COAGULANS, ORAL) Take by mouth. calcium carb/vit D2/minerals (CALTRATE PLUS ORAL) Take 1 tablet by mouth twice daily. calcium carbonate 600 mg-cholecalciferol 400 units (CALCIUM 600 + D) 600 mg(1,500mg) -400 unit tab Take 1 tablet by mouth twice daily. Cholecalciferol, Vitamin D3, 2,000 unit cap Take 1 tablet by mouth once daily. cyanocobalamin, vitamin B-12, (B-12 DOTS ORAL) Take by mouth. diclofenac, EC, (VOLTAREN) 75 mg EC tablet Take 1 tablet by mouth twice daily as needed. For pain/inflammation. Take with food. escitalopram oxalate (LEXAPRO) 5 mg tablet Take 5 mg by mouth once daily. fluticasone (FLONASE) 50 mcg/actuation nasal spray Use 1 [place] in each nostril once daily. ONE DAILY MULTIVITAMIN ORAL Take by mouth once daily. vitamins oxyCODONE-acetaminophen (PERCOCET) 5-325 mg tablet Take 1 tablet by mouth every 4 hours as needed. Potassium 99 mg tab Take 1 tablet by mouth as needed. vit calc,iron,folic ( #2 ORAL) Take by mouth. White Petrolatum-Mineral Oil 57.3-42.5 % ointment Use 1 application in both eyes daily at bedtime. FAMILY HISTORY Problem Relation Age of Onset other (PNEUMONIA) Mother FROM THIS. Stroke Brother other (LUNG DISEASE) Sister copd smoker Social History Tobacco Use Smoking status: Former Packs/day: 0.50 Years: 10.00 Additional pack years: 0.00 Total pack years: 5.00 Types: Cigarettes Smokeless tobacco: Never Tobacco comments: quit 1992 Vaping Use Vaping Use: Never used Substance Use Topics Alcohol use: No Drug use: No Objective Physical Exam Vitals and nursing note reviewed. Constitutional: Appearance: Normal appearance. Musculoskeletal: General: Signs of injury present. No swelling or tenderness. Hands: Skin: General: Skin is warm and dry. Findings: No bruising, erythema or rash. Neurological: Mental Status: She is alert. ASSESSMENT/PLAN: 1. Laceration of muscle of left hand - ICD9: 842.10, ICD10: S66.922A - hand and wound cleaned with sterile water. Surgicell mesh applied to wound. Wrapped with kerlix and covered with loose coban wrap. - patient instructed to keep this dressing on for 24 hours then remove, but DO NOT peel off the surgicell as this will disrupt the clot and she will bleed again. The surgicell will eventually fall off. The edges may be trimmed close to the skin if desired. Return here is bleeding resumes. - Discussed red flags and need for immediate medical evaluation if any occur. Tracey Valle APRN.DEBORA documented in this encounter [facility] 11-23-2022 Note HNO ID: [id number] Author: Momo Gongora APRN.DEBORA Service: ? Author Type: Nurse Practitioner Type: Progress Notes Filed: 11/23/2022 6:54 PM Note Text: Patient triaged at [facility]. Here today with fall 1 hour ago, hit head, left shoulder/elbow/hand hurts. Right hand bleeding. I will refer to ER. Family to drive pov to [facility] ER. [facility] 11-23-2022 History of Presen t illness Narrative Patient triaged at [facility]. Here today with fall 1 hour ago, hit head, left shoulder/elbow/hand hurts. Right hand bleeding. I will refer to ER. Family to drive pov to [facility] ER. documented in this encounter [facility] 08-31-2022 Note HNO ID: [id number] Author: Mandy Sepulveda Service: ? Author Type: Physician Type: Progress Notes Filed: 08/31/2022 12:14 PM Note Text: Consultation requested by Dr. Hardy for an opinion regarding right foot pain. My final recommendations will be communicated back to the requesting physician by way of shared Medical record or letter to requesting physician via US mail. Initial Podiatric Office Visit: Chief Complaint: This 86 year old female who presents with chief complaint:right foot pain HPI Patient presents to clinic for evaluation of right foot. Patient states that a couple of weeks ago, she stubbed her foot. She states her foot turned black and blue. She went to the urgent care because she was having pain. Initial xrays did not reveal any fracture. She was recommended rest and weston taping of the toe. She did not stay off her foot. Her foot pain failed ot improve. She went back to the urgent care and follow-up xrays were negative. She was referred here. She continues to have pain in the forefoot of right lower extremity. PAIN EVALUATION No data found in the last 1 encounters. 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 Fosamax started. Osteoporosis BMD 11/11/2015 Peripheral vascular disease (HCC) Personal history of unspecified urinary disorder Right shoulder pain 01/21/2014 SBO (small bowel obstruction) 04/22/2012 SI joint arthritis Syncope 09/21/2012 Tear film insufficiency, unspecified - Both Eyes 06/12/2014 Tendinitis of right rotator cuff 01/21/2014 Vitamin D deficiency 06/21/2011 Current Outpatient Medications Medication Sig aspirin, enteric coated (ASPIRIN, ENTERIC COATED) 81 mg EC tablet Take 81 mg by mouth once daily. escitalopram oxalate (LEXAPRO) 5 mg tablet Take 5 mg by mouth once daily. calcium carb/vit D2/minerals (CALTRATE PLUS ORAL) Take 1 tablet by mouth twice daily. cyanocobalamin, vitamin B-12, (B-12 DOTS ORAL) Take by mouth. Bacillus coagulans (PROBIOTIC, B. COAGULANS, ORAL) Take by mouth. vit calc,iron,folic ( #2 ORAL) Take by mouth. calcium carbonate 600 mg-cholecalciferol 400 units (CALCIUM 600 + D) 600 mg(1,500mg) -400 unit tab Take 1 tablet by mouth twice daily. ONE DAILY MULTIVITAMIN ORAL Take by mouth once daily. vitamins oxyCODONE-acetaminophen (PERCOCET) 5-325 mg tablet Take 1 tablet by mouth every 4 hours as needed. fluticasone (FLONASE) 50 mcg/actuation nasal spray Use 1 [place] in each nostril once daily. Cholecalciferol, Vitamin D3, 2,000 unit cap Take 1 tablet by mouth once daily. Potassium 99 mg tab Take 1 tablet by mouth as needed. diclofenac, EC, (VOLTAREN) 75 mg EC tablet Take 1 tablet by mouth twice daily as needed. For pain/inflammation. Take with food. White Petrolatum-Mineral Oil 57.3-42.5 % ointment Use 1 application in both eyes daily at bedtime. No current facility-administered medications for this visit. ALLERGIES Allergen Reactions Cipro [Ciprofloxaci* Swelling Climara Pro [Estrad* Rash Acetate Salt Hives Adhesive Tape (Marisa* Rash, Itching Estradiol GI Upset Fleet Phospho-Soda * Intolerance Hydroxyzine Other: See Comments Excess sedation Novocain [Procaine * unresponsive and difficult to arose Nsaids (Non-Steroid* GI Upset Penicillins Premarin [Conjugate* GI Upset Sulfa (Sulfonamide * PAST SURGICAL HISTORY Procedure Laterality Date BONE DENSITY MULTIPLE SITES 09/08/2004 CHOLECYSTECTOMY 1980s cholecystectomy COLONOSCOPY W/BIOPSY 08/10/2016 negative for colitis COLONOSCOPY FLX DX W/COLLJ SPEC WHEN PFRMD 06/12/2001 Colonoscopy COLONOSCOPY FLX DX W/COLLJ SPEC WHEN PFRMD 04/15/2008 Colonoscopy COLONOSCOPY W/BIOPSY SINGLE/MULTIPLE 09/22/12 normal colon, repeat 10 yrs ENTRC RESCJ SMALL INTESTINE 1 RESCJ AND ANAST 05/19/12 20cm ileum resection ESOPHAGOGASTRODUODENOSCOPY TRANSORAL DIAGNOSTIC 06/10/2006 EGD HEMORRHOIDECTOMY INT AND XTRNL 2/> COLUMN/ELIAZAR 2006 LAPAROSCOPY COLECTOMY PARTIAL W/ANASTOMOSIS 08/20/08 for diverticulitis, appendectomy at same time LIGJ DIVJ AND/EXCJ VARICOSE VEIN CLUSTER 1 LEG 1970s Varicose (more content not included)... [facility] 08-31-2022 Note HNO ID: [id number] Author: Marley Tate MA Service: ? Author Type: Track Moving Machine Operator Type: Progress Notes Filed: 08/31/2022 12:14 PM Note Text: Patient presents here today for right ankle pain and injury. Patient states that she isn't in pain at the moment but was hurting this morning. States she went to the urgent care and they told her to stay off it and taped her toes. He recommended she come here. Patient states she hurt it a few weeks ago. [facility] 08-31-2022 Instructions Mandy Sepulveda - 08/31/2022 9:42 AM EDT Recommend lace up tennis shoe, ie ministerio or maral Recommend placing foot in cold water bath tub x 10 minutes twice daily Rest your foot for the next 1-2 weeks and your pain should improve. documented in this encounter [facility] 08-31-2022 History of Presen t illness Narrative Consultation requested by Dr. Hardy for an opinion regarding right foot pain. My final recommendations will be communicated back to the requesting physician by way of shared Medical record or letter to requesting physician via US mail. Initial Podiatric Office Visit: Chief Complaint: This 86 year old female who presents with chief complaint:right foot pain HPI Patient presents to clinic for evaluation of right foot. Patient states that a couple of weeks ago, she stubbed her foot. She states her foot turned black and blue. She went to the urgent care because she was having pain. Initial xrays did not reveal any fracture. She was recommended rest and weston taping of the toe. She did not stay off her foot. Her foot pain failed ot improve. She went back to the urgent care and follow-up xrays were negative. She was referred here. She continues to have pain in the forefoot of right lower extremity. PAIN EVALUATION No data found in the last 1 encounters. 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 Fosamax started. Osteoporosis BMD 11/11/2015 Peripheral vascular disease (HCC) Personal history of unspecified urinary disorder Right shoulder pain 01/21/2014 SBO (small bowel obstruction) 04/22/2012 SI joint arthritis Syncope 09/21/2012 Tear film insufficiency, unspecified - Both Eyes 06/12/2014 Tendinitis of right rotator cuff 01/21/2014 Vitamin D deficiency 06/21/2011 Current Outpatient Medications Medication Sig aspirin, enteric coated (ASPIRIN, ENTERIC COATED) 81 mg EC tablet Take 81 mg by mouth once daily. escitalopram oxalate (LEXAPRO) 5 mg tablet Take 5 mg by mouth once daily. calcium carb/vit D2/minerals (CALTRATE PLUS ORAL) Take 1 tablet by mouth twice daily. cyanocobalamin, vitamin B-12, (B-12 DOTS ORAL) Take by mouth. Bacillus coagulans (PROBIOTIC, B. COAGULANS, ORAL) Take by mouth. vit calc,iron,folic ( #2 ORAL) Take by mouth. calcium carbonate 600 mg-cholecalciferol 400 units (CALCIUM 600 + D) 600 mg(1,500mg) -400 unit tab Take 1 tablet by mouth twice daily. ONE DAILY MULTIVITAMIN ORAL Take by mouth once daily. vitamins oxyCODONE-acetaminophen (PERCOCET) 5-325 mg tablet Take 1 tablet by mouth every 4 hours as needed. fluticasone (FLONASE) 50 mcg/actuation nasal spray Use 1 [place] in each nostril once daily. Cholecalciferol, Vitamin D3, 2,000 unit cap Take 1 tablet by mouth once daily. Potassium 99 mg tab Take 1 tablet by mouth as needed. diclofenac, EC, (VOLTAREN) 75 mg EC tablet Take 1 tablet by mouth twice daily as needed. For pain/inflammation. Take with food. White Petrolatum-Mineral Oil 57.3-42.5 % ointment Use 1 application in both eyes daily at bedtime. No current facility-administered medications for this visit. ALLERGIES Allergen Reactions Cipro [Ciprofloxaci* Swelling Climara Pro [Estrad* Rash Acetate Salt Hives Adhesive Tape (Marisa* Rash, Itching Estradiol GI Upset Fleet Phospho-Soda * Intolerance Hydroxyzine Other: See Comments Excess sedation Novocain [Procaine * unresponsive and difficult to arose Nsaids (Non-Steroid* GI Upset Penicillins Premarin [Conjugate* GI Upset Sulfa (Sulfonamide * PAST SURGICAL HISTORY Procedure Laterality Date BONE DENSITY MULTIPLE SITES 09/08/2004 CHOLECYSTECTOMY 1980s cholecystectomy COLONOSCOPY W/BIOPSY 08/10/2016 negative for colitis COLONOSCOPY FLX DX W/COLLJ SPEC WHEN PFRMD 06/12/2001 Colonoscopy COLONOSCOPY FLX DX W/COLLJ SPEC WHEN PFRMD 04/15/2008 Colonoscopy COLONOSCOPY W/BIOPSY SINGLE/MULTIPLE 09/22/12 normal colon, repeat 10 yrs ENTRC RESCJ SMALL INTESTINE 1 RESCJ & ANAST 05/19/12 20cm ileum resection ESOPHAGOGASTRODUODENOSCOPY TRANSORAL DIAGNOSTIC 06/10/2006 EGD HEMORRHOIDECTOMY INT & XTRNL COLUMN/ELIAZAR 2006 LAPAROSCOPY COLECTOMY PARTIAL W/ANASTOMOSIS 08/20/08 for diverticulitis, appendectomy at same time LIGJ DIVJ &/EXCJ VARICOSE VEIN CLUSTER 1 LEG Varicose Vein Surgery right leg PAST SURGICAL HISTORY OF 1997 and 2006 hiatal hernia surgery x 2 PAST SURGICAL HISTORY OF 200? left breast cyst bengin PAST SURGICAL HISTORY OF bile duct surg @ [place] PAST SURGICAL HISTORY OF 03/2015 had vein surger for varicose issues POST-CATARACT LASER SURGERY Yag Capsulotomy SHOULDER ARTHROSCOPY/SURG 06/18/10 Lt shoulder Arthroscopopy Sub acromial decompression SURG TX ANAL FISTULA INTERSPHINCTERIC 10/21/14 ? perianal versus Bartholin's cyst TOTAL ABDOMINAL HYSTERECT W/WO RMVL TUBE OVARY 1995 BSO bladder suspension XCAPSL CTRC RMVL INSJ IO LENS PROSTH W/O ECP Cataract Extraction with PC IOL Right eye restor lens Left eye Crystal lens FAMILY HISTORY Problem Relation Age of Onset other (PNEUMONIA) Mother FROM THIS. Stroke Brother other (LUNG DISEASE) Sister copd smoker Social History Tobacco Use Smoking status: Former Packs/day: 0.50 Years: 10.00 Pack years: 5.00 Types: Cigarettes Smokeless tobacco: Never Tobacco comments: quit 1992 Vaping Use Vaping Use: Never used Substance Use Topics Alcohol use: No Drug use: No REVIEW OF SYSTEMS GENERAL: Negative for Malaise, significant weight loss, fever RESPIRATORY: Negative for cough, wheezing and shortness of breath CARDIOVASCULAR: Negative for chest pain, leg swelling and palpitations GI: Negative for abdominal discomfort, blood in stools or black stools and change in bowel habits : Negative for dysuria, frequency and incontinence MUSCULOSKELETAL: Negative for joint pain or swelling, back pain, and muscle pain. SKIN: Negative for lesions, rash, and itching. HEMATOLOGY/LYMPHOLOGY Negative for prolonged bleeding, bruising easily, and swollen nodes. ENDOCRINE: Negative for cold or heat intolerance, polyuria, polydipsia and goiter. NEURO: negative Physical Exam: Constitutional: Pt is a well developed 86 year old female who is alert, oriented and cooperative Eyes: Following during examination. No redness or drainage. Respiratory: RR normal and nonlabored. Even breathing. No evidence of distress or shortness of breath. Psychology: Patient is engaged during conversation. Normal affect and mood. Does not appear depressed or anxious during encounter. Vascular: Dorsalis pedis and posterior tibial pulses palpable as b/l Capillary Fill time < 5 seconds to digits 1-5 b/l Skin temperature warm to warm proximal to distal b/l Hair growth present to digits Neurological: intact light touch/epicritic sensation b/l intact protective sensation no significant neurological deficits Dermatological: Nails 1-5 b/l appear normal. Webspaces clean and dry 1-4 b/l. Skin appears well hydrated and supple. good color, texture, turgor. No open lesions present. No callosities present. Musculoskeletal/Orthopaedic: Patient has pain to palpation of right 5th, 4th and 3rd metatarsal. Patient has pain to right 4th toe Foot type is neutral structurally AJ ROM is full with knee extended and flexed 1st MPJ is full when loaded and no pain or crepitus are noted with ROM. MTJ, STJ are full and free of pain and crepitus. +5/5 muscle strength dorsiflexion, plantarflexion, inversion, eversion b/l Radiographs: 3 views right foot reviewed August 31, 2022: I have personally reviewed and interpreted these XR myself: no acute fracture ASSESSMENT: (S90.30XA) Contusion of foot, unspecified laterality, initial encounter (primary encounter diagnosis) (M25.571) Acute right ankle pain (S99.921A) Foot injury, right, initial encounter PLAN: 1. History and physical examination performed. 2. XR reviewed with patient and interpreted today 3. She has contusion of right foot. Recommend wider lace up shoes, icing x 10 minutes twice daily and use of over the counter pain reliever 4. Condition should improve if patient takes the time to rest 5. F/u prn Mandy Sepulveda DPM Podiatry [address] [facility] [id number] Dept: [phone] Dept Patient presents here today for right ankle pain and injury. Patient states that she isn't in pain at the moment but was hurting this morning. States she went to the urgent care and they told her to stay off it and taped her toes. He recommended she come here. Patient states she hurt it a few weeks ago. documented in this encounter [facility] 08-26-2022 Note HNO ID: [id number] Author: RT Saman(Philip) Service: ? Author Type: Tube Molder Fiberglass Type: Progress Notes Filed: 08/26/2022 2:34 PM Note Text: Radiology Service Progress Note PATIENT NAME: Esther Boone DATE OF SERVICE: August 26, 2022 TIME: 2:18 PM PATIENT IDENTITY VERIFICATION COMPLETED USING TWO (2) IDENTIFIERS: Name and Date of confirmed by patient verbally. FALL SCREENING: Has the patient had 2 falls in the last year or 1 fall with injury or currently using an Ambulatory Assistive Device (Walker, Cane, Wheelchair, Crutches, etc.)? Yes, Patient High Risk for Falls What interventions were put in place to prevent falls during this visit? Increased Observations by Caregivers PATIENT GENDER DATA: Female. status: : No status: NO. PATIENT RELEVANT IMPLANT DATA REVIEWED: Yes RADIOLOGY DEPARTMENT: General X-ray: Exam(s) Completed: Lower Extremity X-Ray(s): Ankle, Right and Foot, Right PERIPHERAL IV DATA: Not applicable SIGNED BY: RT Saman(R) August 26, 2022 2:18 PM [facility] 08-26-2022 Note HNO ID: [id number] Author: El Hardy APRN.TRAFFIC SURVEY TECHNICIAN Service: ? Author Type: Nurse Practitioner Type: Progress Notes Filed: 08/26/2022 2:54 PM Note Text: Subjective HPI Nontoxic-appearing female presents urgent care chief complaints right foot pain. Duration of symptoms 11 days. Associated symptoms right foot pain and swelling. Patient states 11 days ago she kicked a bench in her house accidentally when walking through her home bare foot. Patient states this resulted in injury to the fourth toe. Pain is mainly between third and fourth digit. She does have some swelling of her midfoot and ankle today. The swelling has been present for the last few days. Was seen here August 17, 2022. Negative foot x-ray. No fractures or surgeries to this foot in the past. History of osteoporosis. Has not use any OTC medications. No numbness no tingling no decreased sensation. .Patient presents with: Pain: Pt reported (RT) foot, ankle pain x8 days. 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 Fosamax started. Osteoporosis BMD 11/11/2015 Peripheral vascular disease (HCC) Personal history of unspecified urinary disorder Right shoulder pain 01/21/2014 SBO (small bowel obstruction) 04/22/2012 SI joint arthritis Syncope 09/21/2012 Tear film insufficiency, unspecified - Both Eyes 06/12/2014 Tendinitis of right rotator cuff 01/21/2014 Vitamin D deficiency 06/21/2011 PAST SURGICAL HISTORY Procedure Laterality Date BONE DENSITY MULTIPLE SITES 09/08/2004 CHOLECYSTECTOMY 1980s cholecystectomy COLONOSCOPY W/BIOPSY 08/10/2016 negative for colitis COLONOSCOPY FLX DX W/COLLJ SPEC WHEN PFRMD 06/12/2001 Colonoscopy COLONOSCOPY FLX DX W/COLLJ SPEC WHEN PFRMD 04/15/2008 Colonoscopy COLONOSCOPY W/BIOPSY SINGLE/MULTIPLE 09/22/12 normal colon, repeat 10 yrs ENTRC RESCJ SMALL INTESTINE 1 RESCJ AND ANAST 05/19/12 20cm ileum resection ESOPHAGOGASTRODUODENOSCOPY TRANSORAL DIAGNOSTIC 06/10/2006 EGD HEMORRHOIDECTOMY INT AND XTRNL 2/> COLUMN/ELIAZAR 2006 LAPAROSCOPY COLECTOMY PARTIAL W/ANASTOMOSIS 08/20/08 for diverticulitis, appendectomy at same time LIGJ DIVJ AND/EXCJ VARICOSE VEIN CLUSTER 1 LEG Varicose Vein Surgery right leg PAST SURGICAL HISTORY OF 1997 and 2006 hiatal hernia surgery x 2 PAST SURGICAL HISTORY OF 200? left breast cyst bengin PAST SURGICAL HISTORY OF bile duct surg @ [place] PAST SURGICAL HISTORY OF 03/2015 had vein surger for varicose issues POST-CATARACT LASER SURGERY Yag Capsulotomy SHOULDER ARTHROSCOPY/SURG 06/18/10 Lt shoulder Arthroscopopy Sub acromial decompression SURG TX ANAL FISTULA INTERSPHINCTERIC 10/21/14 ? perianal versus Bartholin's cyst TOTAL ABDOMINAL HYSTERECT W/WO RMVL TUBE OVARY 1995 BSO bladder suspension XCAPSL CTRC RMVL INSJ IO LENS PROSTH W/O ECP Cataract Extraction with PC IOL Right eye restor lens Left eye Crystal lens ALLERGIES Cipro [Ciprofloxacin], [place] Pro [Estradiol-Levonorgestrel], Acetate Salt, Adhesive Tape (Rosins), Estradiol, Fleet Phospho-Soda Accu-Prep [Sodium Vtiqklccoz-Fcmigr-Yjw], Hydroxyzine, Novocain [Procaine Hcl], Nsaids (Non-Steroidal Anti-Inflammatory Drug), Penicillins, Premarin [Conjugated Estrogens], and Sulfa (Sulfonamide Antibiotics) MEDICATIONS aspirin, enteric coated (ASPIRIN, ENTERIC COATED) 81 mg EC tablet Take 81 mg by mouth once daily. escitalopram oxalate (LEXAPRO) 5 mg tablet Take 5 mg by mouth once daily. calcium carb/vit D2/minerals (CALTRATE PLUS ORAL) Take 1 tablet by mouth twice daily. Bacillus coagulans (PROBIOTIC, B. COAGULANS, ORAL) Take by mouth. vit calc,iron,folic ( #2 ORAL) Take by mouth. fluticasone (FLONASE) 50 mcg/actuation nasal spray Use 1 [place] in each nostril once daily. cyanocobalamin, vitamin B-12, (B-12 DOTS ORAL) Take by mouth. oxyCODONE-acetaminophen (PERCOCET) 5-325 mg tablet Take 1 tablet by mouth every 4 hours as needed. (Patient not taking: Reported on 05/26/2021) calcium carbonate 600 mg-cholecalciferol 400 units (CALCIUM 600 + D) 600 mg(1,500mg) -400 unit tab Take 1 tablet by mouth twice daily. (Patient not taking: Reported on 07/01/2017 ) Cholecalciferol, Vitamin D (more content not included)... [facility] 08-26-2022 History of Presen t illness Narrative Subjective HPI Nontoxic-appearing female presents urgent care chief complaints right foot pain. Duration of symptoms 11 days. Associated symptoms right foot pain and swelling. Patient states 11 days ago she kicked a bench in her house accidentally when walking through her home bare foot. Patient states this resulted in injury to the fourth toe. Pain is mainly between third and fourth digit. She does have some swelling of her midfoot and ankle today. The swelling has been present for the last few days. Was seen here August 17, 2022. Negative foot x-ray. No fractures or surgeries to this foot in the past. History of osteoporosis. Has not use any OTC medications. No numbness no tingling no decreased sensation. .Patient presents with: Pain: Pt reported (RT) foot, ankle pain x8 days. 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 Fosamax started. Osteoporosis BMD 11/11/2015 Peripheral vascular disease (HCC) Personal history of unspecified urinary disorder Right shoulder pain 01/21/2014 SBO (small bowel obstruction) 04/22/2012 SI joint arthritis Syncope 09/21/2012 Tear film insufficiency, unspecified - Both Eyes 06/12/2014 Tendinitis of right rotator cuff 01/21/2014 Vitamin D deficiency 06/21/2011 PAST SURGICAL HISTORY Procedure Laterality Date BONE DENSITY MULTIPLE SITES 09/08/2004 CHOLECYSTECTOMY 1980s cholecystectomy COLONOSCOPY W/BIOPSY 08/10/2016 negative for colitis COLONOSCOPY FLX DX W/COLLJ SPEC WHEN PFRMD 06/12/2001 Colonoscopy COLONOSCOPY FLX DX W/COLLJ SPEC WHEN PFRMD 04/15/2008 Colonoscopy COLONOSCOPY W/BIOPSY SINGLE/MULTIPLE 09/22/12 normal colon, repeat 10 yrs ENTRC RESCJ SMALL INTESTINE 1 RESCJ & ANAST 05/19/12 20cm ileum resection ESOPHAGOGASTRODUODENOSCOPY TRANSORAL DIAGNOSTIC 06/10/2006 EGD HEMORRHOIDECTOMY INT & XTRNL 2/ COLUMN/ELIAZAR 2006 LAPAROSCOPY COLECTOMY PARTIAL W/ANASTOMOSIS 08/20/08 for diverticulitis, appendectomy at same time LIGJ DIVJ &/EXCJ VARICOSE VEIN CLUSTER 1 LEG Varicose Vein Surgery right leg PAST SURGICAL HISTORY OF 1997 and 2006 hiatal hernia surgery x 2 PAST SURGICAL HISTORY OF 200? left breast cyst bengin PAST SURGICAL HISTORY OF bile duct surg @ [place] PAST SURGICAL HISTORY OF 03/2015 had vein surger for varicose issues POST-CATARACT LASER SURGERY Yag Capsulotomy SHOULDER ARTHROSCOPY/SURG 06/18/10 Lt shoulder Arthroscopopy Sub acromial decompression SURG TX ANAL FISTULA INTERSPHINCTERIC 10/21/14 ? perianal versus Bartholin's cyst TOTAL ABDOMINAL HYSTERECT W/WO RMVL TUBE OVARY 1995 BSO bladder suspension XCAPSL CTRC RMVL INSJ IO LENS PROSTH W/O ECP Cataract Extraction with PC IOL Right eye restor lens Left eye Crystal lens ALLERGIES Cipro [Ciprofloxacin], [place] Pro [Estradiol-Levonorgestrel], Acetate Salt, Adhesive Tape (Rosins), Estradiol, Fleet Phospho-Soda Accu-Prep [Sodium Uprfsbehwo-Ebfpez-Mox], Hydroxyzine, Novocain [Procaine Hcl], Nsaids (Non-Steroidal Anti-Inflammatory Drug), Penicillins, Premarin [Conjugated Estrogens], and Sulfa (Sulfonamide Antibiotics) MEDICATIONS aspirin, enteric coated (ASPIRIN, ENTERIC COATED) 81 mg EC tablet Take 81 mg by mouth once daily. escitalopram oxalate (LEXAPRO) 5 mg tablet Take 5 mg by mouth once daily. calcium carb/vit D2/minerals (CALTRATE PLUS ORAL) Take 1 tablet by mouth twice daily. Bacillus coagulans (PROBIOTIC, B. COAGULANS, ORAL) Take by mouth. vit calc,iron,folic ( #2 ORAL) Take by mouth. fluticasone (FLONASE) 50 mcg/actuation nasal spray Use 1 [place] in each nostril once daily. cyanocobalamin, vitamin B-12, (B-12 DOTS ORAL) Take by mouth. oxyCODONE-acetaminophen (PERCOCET) 5-325 mg tablet Take 1 tablet by mouth every 4 hours as needed. (Patient not taking: Reported on 05/26/2021) calcium carbonate 600 mg-cholecalciferol 400 units (CALCIUM 600 + D) 600 mg(1,500mg) -400 unit tab Take 1 tablet by mouth twice daily. (Patient not taking: Reported on 07/01/2017 ) Cholecalciferol, Vitamin D3, 2,000 unit cap Take 1 tablet by mouth once daily. (Patient not taking: Reported on 06/22/2018 ) Potassium 99 mg tab Take 1 tablet by mouth as needed. (Patient not taking: Reported on 07/01/2017 ) diclofenac, EC, (VOLTAREN) 75 mg EC tablet Take 1 tablet by mouth twice daily as needed. For pain/inflammation. Take with food. (Patient not taking: Reported on 07/01/2017 ) White Petrolatum-Mineral Oil 57.3-42.5 % ointment Use 1 application in both eyes daily at bedtime. (Patient not taking: Reported on 05/26/2021 ) ONE DAILY MULTIVITAMIN ORAL Take by mouth once daily. vitamins FAMILY HISTORY Problem Relation Age of Onset other (PNEUMONIA) Mother FROM THIS. Stroke Brother other (LUNG DISEASE) Sister copd smoker Social History Tobacco Use Smoking status: Former Packs/day: 0.50 Years: 10.00 Pack years: 5.00 Types: Cigarettes Smokeless tobacco: Never Tobacco comments: quit 1992 Vaping Use Vaping Use: Never used Substance Use Topics Alcohol use: No Drug use: No BP 128/80 Pulse 88 Temp 36.8 C (98.2 F) (Tympanic) Resp 18 Wt 45.9 kg (101 lb 3.2 oz) SpO2 96% BMI 18.51 kg/m Review of Systems Constitutional: Negative for chills, fever and malaise/fatigue. HENT: Negative for congestion, ear discharge, ear pain, sinus pain and sore throat. Eyes: Negative for blurred vision, pain, discharge and redness. Respiratory: Negative for cough, hemoptysis, sputum production, shortness of breath, wheezing and stridor. Cardiovascular: Negative for chest pain. Gastrointestinal: Negative for abdominal pain, diarrhea, nausea and vomiting. Musculoskeletal: Positive for joint pain. Negative for myalgias. Skin: Negative for itching and rash. Neurological: Negative for dizziness and headaches. Objective Physical Exam Constitutional: General: She is not in acute distress. Appearance: She is not diaphoretic. HENT: Head: Normocephalic. Eyes: Conjunctiva/sclera: Conjunctivae normal. Pupils: Pupils are equal, round, and reactive to light. Cardiovascular: Rate and Rhythm: Normal rate and regular rhythm. Heart sounds: Normal heart sounds. Pulmonary: Effort: Pulmonary effort is normal. No tachypnea, accessory muscle usage or respiratory distress. Breath sounds: Normal breath sounds. No stridor. No wheezing, rhonchi or rales. Musculoskeletal: Cervical back: Normal range of motion. No rigidity. Right lower leg: Normal. Right ankle: Swelling present. No deformity, ecchymosis or lacerations. No tenderness. Normal range of motion. Normal pulse. Right Achilles Tendon: No tenderness. Right foot: Normal range of motion and normal capillary refill. Swelling, tenderness and bony tenderness present. Normal pulse. Comments: Pain with palpation over fourth metatarsal and fourth of phalange. No deformities noted. Neurovascular intact. No weakness is noted. Some ecchymosis and edema noted over fourth toe. Ecchymosis extends into midfoot and ankle. Skin: General: Skin is warm and dry. Neurological: Mental Status: She is alert and oriented to person, place, and time. ASSESSMENT/PLAN: 1. Acute right ankle pain - ICD9: 719.47, 338.19, ICD10: M25.571 (primary diagnosis) - XR ANKLE GENERAL 3V AP/LAT/OBL RIGHT - XR FOOT GENERAL 3V AP/LAT/OBL RIGHT 2. Foot injury, right, initial encounter - ICD9: 959.7, ICD10: S99.921A - XR FOOT GENERAL 3V AP/LAT/OBL RIGHT IMPRESSION: No acute osseous abnormality Treat as a sprain. Conservative therapy was discussed. Supportive care discussed. Patient was educated on supportive therapies. Patient will follow up with primary care provider as needed. Patient was instructed to immediately proceed to emergency room for any new, worsening, or symptoms lasting longer than anticipated. The patient's clinical presentation is otherwise unremarkable at this time. Based on exam and clinical finding, the patient is stable for discharge. Plan of care was discussed with patient. Patient verbalizes understanding and agrees to plan of care. This note was generated using [employer] software. It may contain errors in wording, punctuation, or spelling. El Hardy APRN.DEBORA documented in this encounter [facility] 08-18-2022 Miscellaneous Notes Pt daughter called back, relayed X-Ray results to daughter. Daughter verbalized understanding. Tamera Mayer MA Unable to reach patient. Mailbox full/Mailbox not set up/ Number incorrect. Please try again later. Both phones unable to leave voicemail. Kathie Francisco Unable to reach patient. Mailbox full/Mailbox not set up/ Number incorrect. Please try again later. Kathie Francisco No abnormal findings noted on x-ray. Continue supportive therapies as discussed. El Hardy APRN.CNP documented in this encounter [facility] 08-17-2022 Note HNO ID: [id number] Author: RT Freddy(R) Service: Nuclear Medicine Author Type: Technologist Type: Progress Notes Filed: 08/17/2022 6:11 PM Note Text: Radiology Service Progress Note PATIENT NAME: Esther Boone DATE OF SERVICE: August 17, 2022 TIME: 5:59 PM PATIENT IDENTITY VERIFICATION COMPLETED USING TWO (2) IDENTIFIERS: Name and Date of confirmed by patient verbally. FALL SCREENING: Has the patient had 2 falls in the last year or 1 fall with injury or currently using an Ambulatory Assistive Device (Walker, Cane, Wheelchair, Crutches, etc.)? No PATIENT GENDER DATA: Female. status: : No status: NO. PATIENT RELEVANT IMPLANT DATA REVIEWED: Not Applicable RADIOLOGY DEPARTMENT: General X-ray: Exam(s) Completed: Lower Extremity X-Ray(s): Foot, Right and Wt. Bearing PERIPHERAL IV DATA: Not applicable SIGNED BY: RT Freddy(R) August 17, 2022 5:59 PM [facility] 08-17-2022 Note HNO ID: [id number] Author: El Hardy APRN.CNP Service: ? Author Type: Nurse Practitioner Type: Progress Notes Filed: 08/17/2022 6:48 PM Note Text: Subjective HPI Nontoxic-appearing female presents urgent care chief complaints right foot pain. Duration of symptoms 2 days. Associated symptoms right foot pain and swelling. Patient states 2 days ago she kicked a bench in her house accidentally when walking through her home bare foot. Patient states this resulted in injury to the fourth toe. She did have some swelling back in her midfoot. States swelling of the midfoot has decreased. Pain in toe is stayed persistent. No fractures or surgeries to this foot in the past. History of osteoporosis. Has not use any OTC medications. No numbness no tingling no decreased sensation. BP 120/74 Pulse 84 Temp 37 ?C (98.6 ?F) Resp 16 Wt 44.7 kg (98 lb 9.6 oz) SpO2 96% BMI 18.03 kg/m? 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 Fosamax started. Osteoporosis BMD 11/11/2015 Peripheral vascular disease (HCC) Personal history of unspecified urinary disorder Right shoulder pain 01/21/2014 SBO (small bowel obstruction) 04/22/2012 SI joint arthritis Syncope 09/21/2012 Tear film insufficiency, unspecified - Both Eyes 06/12/2014 Tendinitis of right rotator cuff 01/21/2014 Vitamin D deficiency 06/21/2011 PAST SURGICAL HISTORY Procedure Laterality Date BONE DENSITY MULTIPLE SITES 09/08/2004 CHOLECYSTECTOMY 1980s cholecystectomy COLONOSCOPY W/BIOPSY 08/10/2016 negative for colitis COLONOSCOPY FLX DX W/COLLJ SPEC WHEN PFRMD 06/12/2001 Colonoscopy COLONOSCOPY FLX DX W/COLLJ SPEC WHEN PFRMD 04/15/2008 Colonoscopy COLONOSCOPY W/BIOPSY SINGLE/MULTIPLE 09/22/12 normal colon, repeat 10 yrs ENTRC RESCJ SMALL INTESTINE 1 RESCJ AND ANAST 05/19/12 20cm ileum resection ESOPHAGOGASTRODUODENOSCOPY TRANSORAL DIAGNOSTIC 06/10/2006 EGD HEMORRHOIDECTOMY INT AND XTRNL 2/> COLUMN/ELIAZAR 2006 LAPAROSCOPY COLECTOMY PARTIAL W/ANASTOMOSIS 08/20/08 for diverticulitis, appendectomy at same time LIGJ DIVJ AND/EXCJ VARICOSE VEIN CLUSTER 1 LEG Varicose Vein Surgery right leg PAST SURGICAL HISTORY OF 1997 and 2006 hiatal hernia surgery x 2 PAST SURGICAL HISTORY OF 200? left breast cyst bengin PAST SURGICAL HISTORY OF bile duct surg @ [place] PAST SURGICAL HISTORY OF 03/2015 had vein surger for varicose issues POST-CATARACT LASER SURGERY Yag Capsulotomy SHOULDER ARTHROSCOPY/SURG 06/18/10 Lt shoulder Arthroscopopy Sub acromial decompression SURG TX ANAL FISTULA INTERSPHINCTERIC 10/21/14 ? perianal versus Bartholin's cyst TOTAL ABDOMINAL HYSTERECT W/WO RMVL TUBE OVARY 1995 BSO bladder suspension XCAPSL CTRC RMVL INSJ IO LENS PROSTH W/O ECP Cataract Extraction with PC IOL Right eye restor lens Left eye Crystal lens ALLERGIES Cipro [Ciprofloxacin], [place] Pro [Estradiol-Levonorgestrel], Acetate Salt, Adhesive Tape (Rosins), Estradiol, Fleet Phospho-Soda Accu-Prep [Sodium Sbmnktqgbn-Ugeqxc-Unf], Hydroxyzine, Novocain [Procaine Hcl], Nsaids (Non-Steroidal Anti-Inflammatory Drug), Penicillins, Premarin [Conjugated Estrogens], and Sulfa (Sulfonamide Antibiotics) MEDICATIONS aspirin, enteric coated (ASPIRIN, ENTERIC COATED) 81 mg EC tablet Take 81 mg by mouth once daily. escitalopram oxalate (LEXAPRO) 5 mg tablet Take 5 mg by mouth once daily. calcium carb/vit D2/minerals (CALTRATE PLUS ORAL) Take 1 tablet by mouth twice daily. cyanocobalamin, vitamin B-12, (B-12 DOTS ORAL) Take by mouth. Bacillus coagulans (PROBIOTIC, B. COAGULANS, ORAL) Take by mouth. vit calc,iron,folic ( #2 ORAL) Take by mouth. oxyCODONE-acetaminophen (PERCOCET) 5-325 mg tablet Take 1 tablet by mouth every 4 hours as needed. (Patient not taking: Reported on 05/26/2021) fluticasone (FLONASE) 50 mcg/actuation nasal spray Use 1 [place] in each nostril once daily. (Patient not taking: Reported on 07/01/2017 ) calcium carbonate 600 mg-cholecalciferol 400 units (CALCIUM 600 + D) 600 mg(1,500mg) -400 unit tab Take 1 tablet (more content not included)... [facility] 08-17-2022 History of Presen t illness Narrative Subjective HPI Nontoxic-appearing female presents urgent care chief complaints right foot pain. Duration of symptoms 2 days. Associated symptoms right foot pain and swelling. Patient states 2 days ago she kicked a bench in her house accidentally when walking through her home bare foot. Patient states this resulted in injury to the fourth toe. She did have some swelling back in her midfoot. States swelling of the midfoot has decreased. Pain in toe is stayed persistent. No fractures or surgeries to this foot in the past. History of osteoporosis. Has not use any OTC medications. No numbness no tingling no decreased sensation. BP 120/74 Pulse 84 Temp 37 C (98.6 F) Resp 16 Wt 44.7 kg (98 lb 9.6 oz) SpO2 96% BMI 18.03 kg/m .Patient presents with: Pain (foot): right foot bruised and 4th toe pain x 2 days, hit on stand 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 Anxiety 10/30/2013 Bartholin cyst 10/31/2014 Blood per rectum 10/14/2014 Bowel disease 2009 diverticulitis/03/18 of colon removed Cervical disc disorder with radiculopathy had epidural injections Cervicalgia 12/14/2005 Dermatophytosis of nail 06/10/2006 Diverticulosis of large intestine Dry eyes - Both Eyes 01/03/2014 Dysphagia 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 Fosamax started. Osteoporosis BMD 11/11/2015 Peripheral vascular disease (HCC) Personal history of unspecified urinary disorder Right shoulder pain 01/21/2014 SBO (small bowel obstruction) 04/22/2012 SI joint arthritis Syncope 09/21/2012 Tear film insufficiency, unspecified - Both Eyes 06/12/2014 Tendinitis of right rotator cuff 01/21/2014 Vitamin D deficiency 06/21/2011 PAST SURGICAL HISTORY Procedure Laterality Date BONE DENSITY MULTIPLE SITES 09/08/2004 CHOLECYSTECTOMY 1980s cholecystectomy COLONOSCOPY W/BIOPSY 08/10/2016 negative for colitis COLONOSCOPY FLX DX W/COLLJ SPEC WHEN PFRMD 06/12/2001 Colonoscopy COLONOSCOPY FLX DX W/COLLJ SPEC WHEN PFRMD 04/15/2008 Colonoscopy COLONOSCOPY W/BIOPSY SINGLE/MULTIPLE 09/22/12 normal colon, repeat 10 yrs ENTRC RESCJ SMALL INTESTINE 1 RESCJ & ANAST 05/19/12 20cm ileum resection ESOPHAGOGASTRODUODENOSCOPY TRANSORAL DIAGNOSTIC 06/10/2006 EGD HEMORRHOIDECTOMY INT & XTRNL COLUMN/ELIAZAR 2006 LAPAROSCOPY COLECTOMY PARTIAL W/ANASTOMOSIS 08/20/08 for diverticulitis, appendectomy at same time LIGJ DIVJ &/EXCJ VARICOSE VEIN CLUSTER 1 LEG Varicose Vein Surgery right leg PAST SURGICAL HISTORY OF 1997 and 2006 hiatal hernia surgery x 2 PAST SURGICAL HISTORY OF 200? left breast cyst bengin PAST SURGICAL HISTORY OF bile duct surg @ [place] PAST SURGICAL HISTORY OF 03/2015 had vein surger for varicose issues POST-CATARACT LASER SURGERY Yag Capsulotomy SHOULDER ARTHROSCOPY/SURG 06/18/10 Lt shoulder Arthroscopopy Sub acromial decompression SURG TX ANAL FISTULA INTERSPHINCTERIC 10/21/14 ? perianal versus Bartholin's cyst TOTAL ABDOMINAL HYSTERECT W/WO RMVL TUBE OVARY 1995 BSO bladder suspension XCAPSL CTRC RMVL INSJ IO LENS PROSTH W/O ECP Cataract Extraction with PC IOL Right eye restor lens Left eye Crystal lens ALLERGIES Cipro [Ciprofloxacin], [place] Pro [Estradiol-Levonorgestrel], Acetate Salt, Adhesive Tape (Rosins), Estradiol, Fleet Phospho-Soda Accu-Prep [Sodium Vhlusvahgt-Kmtjrj-Ier], Hydroxyzine, Novocain [Procaine Hcl], Nsaids (Non-Steroidal Anti-Inflammatory Drug), Penicillins, Premarin [Conjugated Estrogens], and Sulfa (Sulfonamide Antibiotics) MEDICATIONS aspirin, enteric coated (ASPIRIN, ENTERIC COATED) 81 mg EC tablet Take 81 mg by mouth once daily. escitalopram oxalate (LEXAPRO) 5 mg tablet Take 5 mg by mouth once daily. calcium carb/vit D2/minerals (CALTRATE PLUS ORAL) Take 1 tablet by mouth twice daily. cyanocobalamin, vitamin B-12, (B-12 DOTS ORAL) Take by mouth. Bacillus coagulans (PROBIOTIC, B. COAGULANS, ORAL) Take by mouth. vit calc,iron,folic ( #2 ORAL) Take by mouth. oxyCODONE-acetaminophen (PERCOCET) 5-325 mg tablet Take 1 tablet by mouth every 4 hours as needed. (Patient not taking: Reported on 05/26/2021) fluticasone (FLONASE) 50 mcg/actuation nasal spray Use 1 [place] in each nostril once daily. (Patient not taking: Reported on 07/01/2017 ) calcium carbonate 600 mg-cholecalciferol 400 units (CALCIUM 600 + D) 600 mg(1,500mg) -400 unit tab Take 1 tablet by mouth twice daily. (Patient not taking: Reported on 07/01/2017 ) Cholecalciferol, Vitamin D3, 2,000 unit cap Take 1 tablet by mouth once daily. (Patient not taking: Reported on 06/22/2018 ) Potassium 99 mg tab Take 1 tablet by mouth as needed. (Patient not taking: Reported on 07/01/2017 ) diclofenac, EC, (VOLTAREN) 75 mg EC tablet Take 1 tablet by mouth twice daily as needed. For pain/inflammation. Take with food. (Patient not taking: Reported on 07/01/2017 ) White Petrolatum-Mineral Oil 57.3-42.5 % ointment Use 1 application in both eyes daily at bedtime. (Patient not taking: Reported on 05/26/2021 ) ONE DAILY MULTIVITAMIN ORAL Take by mouth once daily. vitamins FAMILY HISTORY Problem Relation Age of Onset other (PNEUMONIA) Mother FROM THIS. Stroke Brother other (LUNG DISEASE) Sister copd smoker Social History Tobacco Use Smoking status: Former Packs/day: 0.50 Years: 10.00 Pack years: 5.00 Types: Cigarettes Smokeless tobacco: Never Tobacco comments: quit 1993 Vaping Use Vaping Use: Never used Substance Use Topics Alcohol use: No Drug use: No Review of Systems Constitutional: Negative for chills, fever and malaise/fatigue. HENT: Negative for congestion, ear discharge, ear pain, sinus pain and sore throat. Eyes: Negative for blurred vision, pain, discharge and redness. Respiratory: Negative for cough, hemoptysis, sputum production, shortness of breath, wheezing and stridor. Cardiovascular: Negative for chest pain. Gastrointestinal: Negative for abdominal pain, diarrhea and vomiting. Musculoskeletal: Positive for joint pain. Negative for myalgias. Skin: Negative for itching and rash. Neurological: Negative for dizziness and headaches. Objective Physical Exam Constitutional: General: She is not in acute distress. Appearance: She is not diaphoretic. HENT: Head: Normocephalic. Eyes: Conjunctiva/sclera: Conjunctivae normal. Pupils: Pupils are equal, round, and reactive to light. Cardiovascular: Rate and Rhythm: Normal rate and regular rhythm. Heart sounds: Normal heart sounds. Pulmonary: Effort: Pulmonary effort is normal. No tachypnea, accessory muscle usage or respiratory distress. Breath sounds: Normal breath sounds. No stridor. No wheezing, rhonchi or rales. Musculoskeletal: Cervical back: Normal range of motion. Right ankle: No swelling or ecchymosis. No tenderness. Normal range of motion. Right Achilles Tendon: No tenderness. Right foot: Normal range of motion and normal capillary refill. Swelling, tenderness and bony tenderness present. No deformity. Normal pulse. Comments: Pain with palpation over fourth metatarsal and fourth of phalange. No deformities noted. Neurovascular intact. No weakness is noted. Some ecchymosis and edema noted over fourth toe. Skin: General: Skin is warm and dry. Neurological: Mental Status: She is alert and oriented to person, place, and time. ASSESSMENT/PLAN: 1. Foot injury, right, initial encounter - ICD9: 959.7, ICD10: S99.921A - XR FOOT GENERAL 3V AP/LAT/OBL RIGHT No acute fractures noted on x-ray. Weston tape applied. Padding placed between third and fourth digit. Fourth and third digit were weston taped together. Patient tolerated well. Treat as a sprain. Conservative therapy was discussed. Supportive care discussed. Patient was educated on supportive therapies. Patient will follow up with primary care provider as needed. Patient was instructed to immediately proceed to emergency room for any new, worsening, or symptoms lasting longer than anticipated. The patient's clinical presentation is otherwise unremarkable at this time. Based on exam and clinical finding, the patient is stable for discharge. Plan of care was discussed with patient. Patient verbalizes understanding and agrees to plan of care. This note was generated using [employer]urn[employer] software. It may contain errors in wording, punctuation, or spelling. El Hardy APRN.DEBORA documented in this encounter [facility] 07-16-2020 History of Presen t illness Narrative CVI HISTORY 1. Have you ever had vein stripping surgery? (If yes, when and which leg?) Yes Dr. Howell at [facility] 2. Have you ever had vein injections? (If yes, which leg and where on leg?) No 3. Have you ever had a blood clot? (If yes, which leg and when?) Yes 18-20 yr ago on left knee 4. Have you ever had phlebitis? (If yes, which leg and when?) No Does anyone in your family have (or used to have) varicose veins, spider veins, leg ulcers or swollen legs? No 1. Do you experience any of the following in your legs? Aching / pain? Yes both legs Heaviness? Yes both legs Tireness / fatigue? Yes both legs Itching / burning? No Swollen ankles? No Leg cramps? Yes both legs Restless legs? Yes both legs Throbbing? Yes both legs Other? N/A 2. Have your veins gotten worse in recent months? (If yes, describe.) Yes, more prominent 3. Do you take any medication for pain (i.e., Advil, Motrin)? (If yes, what medication do you take and how many times/mgs per day?) No 4. Do you elevate your legs to relieve discomfort? (If yes, how long per day do you elevate and does it provide relief?) No 5. Do you exercise? (If yes, what kind of exercise and how often?) No 6. Do you wear prescription compression stockings? (If yes, what type and gradient? How long have you worn them? Also, list name of prescribing physician and when they were prescribed.) No 7. Do you have any problem walking? (If yes, describe how it interferes with your activities of daily living, which activities?) Yes leg pain if patient does too much activity 8. What type of work do you do? Retired How long do you stand (hours per day) at work? N/A At home? 12-14 hr Describe how your symptoms are / if interfering with your essential job function of your specific occupation, which activities: Unable to perform daily tasks as easy as before 9. Have you ever had any test(s) done on your veins? (If yes, when and what type of test and where on the leg?) No 10. Were you diagnosed with saphenous vein reflux? No [facility] CONSULT NOTE 07/16/2020 Chief Complaint Patient presents with Referral Ernie referral, VV, pain Assessment and Plan: 1. Varicose veins of lower extremity with inflammation, bilateral 1. Suspect at least mild underlying venous hypertension. 2. Obtain VIS. 3. Recommend compression stockings 20-30mmHg. 4. Conservative management. 5. Exercise and leg elevation. 6. Consider endovenous therapy if indicated. Orders [facility]aced [facility] of Present Illness: Patient is a 84 y.o. female who presents today for initial evaluation of varicose veins. Presents today with complaints of varicose veins. Reports that she had stripping done many years ago at [facility]. Reports that he didn't finish the job and she's had continued symptoms since. This was about 20 years ago. She reports bilateral cramping, all the way into her thighs and groin. She reports bilateral leg pain and tightness . Not currently wearing compression stockings. No VIS on file. Heaviness: Yes Aching: Yes Swelling: Yes Throbbing: Yes Itching: No Restless Legs: No Compression: no What type of compression: NA Duration: NA CEAP classification for chronic venous disorders. Patient's staged CEAP class is outlined below: C2 Ep As Pr Prior venous/arterial workup: no Reviewed:no Other pertinent history Diabetic: No DVT/PE: No CVA/TIA: No Cellulitis/ulcers:No CHF:No Pulmonary hypertension: No Smoker: No Family history of vascular disease: No Physical Examination: Visit Vitals BP 118/64 Pulse 71 Ht 5' 2 (1.575 m) Wt 46.7 kg (103 lb) BMI 18.84 kg/m General - A-Ox3- In no respiratory distress Heart - regular rhythm, normal S1, S2, no gallops, no murmurs, no friction rubs Chest - CTA & percussion Ext - no clubbing, no cyanosis, foot pulsations are 2+ and equal Venous Exam: Edema: No Varicosities, reticular, venulectasias, and telangiectasias: Yes Bilateral Legs Hyperpigmentation: No Ulcers: No Induration: No Inflammation (I.e. erythema, cellulitis, dermatitis, eczema): No Tai phlebectatica: No Reflux Study Jessica Cano APRN CNP 07/16/20 Cc: No primary care provider on file. documented in this encounter [facility] 07-16-2020 Miscellaneous Notes Encounter addended by: Kathie Johansen RN on: 07/16/2020 3:11 PM Actions taken: Edited Discharge Instructions documented in this encounter [facility] 07-16-2020 Hospital Discharg e instructions Kathie Johansen RN - 07/16/2020 Do not wear compression the day of your venous scan. We will call you with results. documented in this encounter [facility] documented as of this encounter (statuses as of 08/18/2022) [facility] History of Past illness Narrative* Problem Noted Date Resolved Date NO SHOW 11/25/2010 09/07/2013 Abdominal pain, right lower quadrant 09/11/2008 08/24/2011 DIVERTICULITIS COLON - NO HEMORRHAGE 07/29/2008 09/21/2013 Diverticulosis of colon (without mention of hemo rrhage) 09/21/2013 Overview: Acute Episode Diverticulitis - 07/15/08 documented as of this encounter (statuses as of 08/19/2022) [facility] History of Past illness Narrative* Problem Noted Date Resolved Date NO SHOW 11/25/2010 09/07/2013 Abdominal pain, right lower quadrant 09/11/2008 08/24/2011 DIVERTICULITIS COLON - NO HEMORRHAGE 07/29/2008 09/21/2013 Diverticulosis of colon (without mention of hemo rrhage) 09/21/2013 Overview: Acute Episode Diverticulitis - 07/15/08 documented as of this encounter (statuses as of 08/27/2022) [facility] History of Past illness Narrative* Problem Noted Date Resolved Date NO SHOW 11/25/2010 09/07/2013 Abdominal pain, right lower quadrant 09/11/2008 08/24/2011 DIVERTICULITIS COLON - NO HEMORRHAGE 07/29/2008 09/21/2013 Diverticulosis of colon (without mention of hemo rrhage) 09/21/2013 Overview: Acute Episode Diverticulitis - 07/15/08 documented as of this encounter (statuses as of 08/31/2022) [facility] History of Past illness Narrative* Problem Noted Date Diagnosed Date Resolved Date NO SHOW 11/25/2010 09/07/2013 Abdominal pain, right lower quadrant 09/11/2008 08/24/2011 DIVERTICULITIS COLON - NO HEMORRHAGE 07/29/2008 09/21/2013 Diverticulosis of colon (wit hout mention of hemorrhage) 09/21/2013 Overview: Acute Episode Diverticulitis - 07/15/08 documented as of this encounter (statuses as of 11/24/2022) [facility] History of Past illness Narrative* Problem Noted Date Diagnosed Date Resolved Date NO SHOW 11/25/2010 09/07/2013 Abdominal pain, right lower quadrant 09/11/2008 08/24/2011 DIVERTICULITIS COLON - NO HEMORRHAGE 07/29/2008 09/21/2013 Diverticulosis of colon (wit hout mention of hemorrhage) 09/21/2013 Overview: Acute Episode Diverticulitis - 07/15/08 documented as of this encounter (statuses as of 12/25/2022) [facility] History of Past illness Narrative* Problem Noted Date Diagnosed Date Resolved Date NO SHOW 11/25/2010 09/07/2013 Abdominal pain, right lower quadrant 09/11/2008 08/24/2011 DIVERTICULITIS COLON - NO HEMORRHAGE 07/29/2008 09/21/2013 Diverticulosis of colon (wit hout mention of hemorrhage) 09/21/2013 Overview: Acute Episode Diverticulitis - 07/15/08 documented as of this encounter (statuses as of 12/25/2022) [facility] note* Diagnosis Varicose veins of lower extremity with inflammation, bilateral- Primary documented in this encounter [facility] note* Diagnosis Varicose veins of lower extremity with inflammation, bilateral documented in this encounter [facility] note* Diagnosis Foot injury, right, initial encounter- Primary documented in this encounter [facility] note* Diagnosis Acute right ankle pain- Primary Foot injury, right, initial encounter documented in this encounter [facility] note* Diagnosis Contusion of foot, unspecified laterality, initial encounter- Primary Acute right ankle pain Foot injury, right, initial encounter Peripheral vascular disease (HCC) Peripheral vascular disease, unspecified Nutritional marasmus (HCC) Nutritional marasmus documented in this encounter [facility] note* Diagnosis Injury of head, initial encounter- Primary documented in this encounter [facility] note* Diagnosis Laceration of muscle of left hand- Primary documented in this encounter [facility] note* Diagnosis Laceration of left hand without foreign body, subsequent encounter- Primary documented in this encounter [facility] for referral (narrative)* Procedure Authorization (Routine) Status Reason Specialty Diagnoses / Procedures Referred By Contact Referred To Contact Incomplete Heart and Vascul ar Diagnostics Diagnoses Varicose veins of lower extremity with inflammation, bilateral Procedures Venous Insufficiency Study-Bilat Lower Ext Jessica Cano APRN TRAFFIC SURVEY TECHNICIAN [address] [place] [address] Electronically signed by Jessica Cano APRN, CNP at [facility] for referral (narrative)* Procedure Authorization (Routine) Status Reason Specialty Diagnoses / Procedures Referred By Contact Referred To Contact Closed Heart and Vascul ar Diagnostics Diagnoses Varicose veins of lower extremity with inflammation, bilateral Procedures Venous Insufficiency Study-Bilat Lower Ext Jessica Cano APRN TRAFFIC SURVEY TECHNICIAN [address] [address] Electronically signed by Jessica Cano APRN, CNP at [facility] for referral (narrative)* Diagnostic Procedure Only (Urgent) - Closed Specialty Diagnoses / Procedures Referred By Contac t Referred To Contact XR IMAGING Diagnoses Foot injury, right, initial encounter Procedures XR FOOT GENERAL 3V AP/LAT/OBL RIGHT RADEX FOOT COMPLETE MINIMUM 3 VIEWS El Hardy APRN.TRAFFIC SURVEY TECHNICIAN [address] [place] [address] Xr Imaging Referral ID Status Reason Start Date Expiration Date V isits Requested Visits Authorized [id number] Closed Auto-Generate d Referral 08/17/2022 09/16/[address] [facility] for visit Narrative* Procedure Authorization (Routine) Status Reason Specialty Diagnoses / Procedures Referred By Contact Referred To Contact Closed Heart and Vascul ar Diagnostics Diagnoses Varicose veins of lower extremity with inflammation, bilateral Procedures Venous Insufficiency Study-Bilat Lower Ext Jessica Cano APRN TRAFFIC SURVEY TECHNICIAN [address] [facility] [address] [place] [address] [facility] Summary Purpose Family History No Family History Records FoundNo Family History Records FoundNo Family History Records FoundNo Family History Records FoundNo Family History Records FoundNo Family History Records Found Advance Directives No Advanced Directives Records FoundDocuments on File Type Date Recorded Patient Ancillary Specialist Expl anation Advance Directives and Living Will Power of Sales Representative Meats Reason for Referral Specialty Diagnoses / Procedures Referred By Contac t Referred To Contact Podiatry Diagnoses Acute right ankle pain Foot injury, right, initial encounter Procedures CONSULT TO PODIATRY OFFICE/OUTPATIENT CARE ONE AT [facility] 60-74 MINUTES El Hardy APRN.TRAFFIC SURVEY TECHNICIAN [address] [place] [address] Referral ID Status Reason Start Date Expiration Date Visits Requested Visits Authorized [id number] Pending Review PCP Requested Referral 08/26/2022 08/26/2023 1 1 Specialty Diagnoses / Procedures Referred By Contac t Referred To Contact XR IMAGING Diagnoses Acute right ankle pain Foot injury, right, initial encounter Procedures XR FOOT GENERAL 3V AP/LAT/OBL RIGHT RADEX FOOT COMPLETE MINIMUM 3 VIEWS El Hardy, CAMERA MACHINIST.TRAFFIC SURVEY TECHNICIAN [address] [facility] [place] [address] Xr Imaging Referral ID Status Reason Start Date Expiration Date V isits Requested Visits Authorized [id number] Closed Auto-Generate d Referral 08/26/2022 09/25/2023 1 1 Specialty Diagnoses / Procedures Referred By Contac t Referred To Contact XR IMAGING Diagnoses Acute right ankle pain Procedures XR ANKLE GENERAL 3V AP/LAT/OBL RIGHT RADEX ANKLE COMPLETE MINIMUM 3 VIEWS El Hardy, CAMERA MACHINIST.TRAFFIC SURVEY TECHNICIAN [address] [place] [address] Xr Imaging Referral ID Status Reason Start Date Expiration Date V isits Requested Visits Authorized [id number] Closed Auto-Generate d Referral 08/26/2022 09/25/2023 1 1 Additional Source Comments INFORMATION SOURCE (unrecogn ized section and content) DATE CREATED AUTHOR AUTHOR'S ORGANIZ ATION 09/06/2017 [facility] DATE CREATED AUTHOR AUTHOR'S ORGANIZ ATION 09/07/2017 [facility] DATE CREATED AUTHOR AUTHOR'S ORGANIZ ATION 05/10/2020 [facility] DATE CREATED AUTHOR AUTHOR'S ORGANIZ ATION 05/25/2020 [facility] DATE CREATED AUTHOR AUTHOR'S ORGANIZ ATION 12/26/2022 [facility] Reason for Visit (unrecogniz ed section and content) Status Reason Specialty Diagnoses / Procedures Referred By Contact Referred To Contact Closed Heart and Vascul ar Diagnostics Diagnoses Asymptomatic varicose veins of bilateral lower extremities Tierra Patel MD [address] [place] [address] [facility] [address] [facility] [place] [address] Reason Comments Pain (foot) right foot bruised a nd 4th toe pain x 2 days, hit on stand Reason Comments Results Reason Comments Pain Pt reported (RT) roosevelt t, ankle pain x8 days. Reason Comments Pain Right ankle pain, fo ot injury Specialty Diagnoses / Procedures Referred By Contac t Referred To Contact Podiatry Diagnoses Acute right ankle pain Foot injury, right, initial encounter Procedures CONSULT TO PODIATRY OFFICE/OUTPATIENT CARE ONE AT [facility] 60-74 MINUTES El Hardy APRN.DEBORA [address] [place] [address] Referral ID Status Reason Start Date Expiration Date Visits Requested Visits Authorized [id number] Pending Review PCP Requested Referral 08/26/2022 08/26/2023 1 1 Reason Comments Laceration Cast removal L hand x8 hours, hand bleeding, on blood thinners Source Comments (unrecognize d section and content) In the event this informatio n is protected by the Federal Confidentiality of Alcohol and Drug Abuse Patient Records regulations: The Federal rules restrict any use of the information to criminally investigate or prosecute any alcohol or drug abuse patient.[facility] the event this information is protected by the Federal Confidentiality of Alcohol and Drug Abuse Patient Records regulations: The Federal rules restrict any use of the information to criminally investigate or prosecute any alcohol or drug abuse patient.[facility] the event this information is protected by the Federal Confidentiality of Alcohol and Drug Abuse Patient Records regulations: The Federal rules restrict any use of the information to criminally investigate or prosecute any alcohol or drug abuse patient.[facility] the event this information is protected by the Federal Confidentiality of Alcohol and Drug Abuse Patient Records regulations: The Federal rules restrict any use of the information to criminally investigate or prosecute any alcohol or drug abuse patient.[facility] the event this information is protected by the Federal Confidentiality of Alcohol and Drug Abuse Patient Records regulations: The Federal rules restrict any use of the information to criminally investigate or prosecute any alcohol or drug abuse patient.[facility] the event this information is protected by the Federal Confidentiality of Alcohol and Drug Abuse Patient Records regulations: The Federal rules restrict any use of the information to criminally investigate or prosecute any alcohol or drug abuse patient.[facility] the event this information is protected by the Federal Confidentiality of Alcohol and Drug Abuse Patient Records regulations: The Federal rules restrict any use of the information to criminally investigate or prosecute any alcohol or drug abuse patient.[facility] Care Teams (unrecognized sec tion and content) Weed Controller Relationship Specialty Start Date End Date Tierra Patel MD PCP - General Internal Medicine 02/14/17 Weed Controller Relationship Specialty Start Date End Date Tierra Patel MD PCP - General Internal Medicine 02/14/17 Weed Controller Relationship Specialty Start Date End Date Tierra Patel MD PCP - General Internal [facility] 02/14/17 Weed Controller Relationship Specialty Start Date End Date Tierra Patel MD PCP - General Internal Medicine 02/14/17 Weed Controller Relationship Specialty Start Date End Date Tierra Patel MD PCP - General Internal Medicine 02/14/17 Weed Controller Relationship Specialty Start Date End Date Tierra Patel MD PCP - General Internal Medicine 02/14/17 FOR RECORDS PERTAINING TO PATIENTS WHO ARE OR HAVE BEEN ENROLLED IN A CHEMICAL DEPENDENCY/SUBSTANCEABUSE PROGRAM, SOME INFORMATION MAY BE OMITTED. This clinical summary was aggregated from multiple sources. Caution should be exercised in using it in the provision of clinical care. This summary normalizes information from multiple sources, and as a consequence, information in this document may materially change the coding, format and clinical context of patient data. In addition, data may be omitted in some cases. CLINICAL DECISIONS SHOULD BE BASED ON THE PRIMARY CLINICAL RECORDS. [facility]. provides no warranty or guarantee of the accuracy or completeness of information in this document.
[2023-03-11 15:22] LABS: Anion Gap 3 (5-15); BUN 8 mg/dL (7-18); BUN/Creat Ratio 12.3 RATIO (10-20); Calcium,Total 8.5 mg/dL (8.5-10.1); Chloride 111 mmol/L (98-107); Creatinine, Serum 0.65 mg/dL (0.55-1.02); EST Glomerular Filtration Rate 92 mL/min (>60); Est Glom Filt Rate - Afr Amer 111 mL/min (>60); Estimated Creatinine Clearance 30.34 ml/min; Glucose 82 mg/dL (74-106); Potassium 3.4 mmol/L (3.5-5.1); Sodium Level 144 mmol/L (136-145); Troponin-I HS 12 pg/mL (3.0-54.0)
--- NOTE | 2023-03-11 15:23 | ED.RN ---
This RN called [facility] stroke line at 1505. informed that patient is back from CT scan and in room. waiting on neurologist to beam in. This RN called again at 1522 to inquire about wait time. informed that neurologist was with another patient but would see this pt next.
[2023-03-11 15:26] LABS: Partial Thromboplast Time 31.3 Seconds (24.1-36.2)
[2023-03-11 15:31] LABS: Prothrombin Time (Protime)PT. 13.6 SECONDS (11.7-14.9)
--- NOTE | 2023-03-11 15:36 | CHAPLAIN ---
Type of Pastoral Visit ___ Initial Visit ___ Follow-up Visit ___ On-call Visit ___ General Patient Visit ___ Spiritual Assessment ___ Family Conference ___ Bereavement _x__ Rapid Response ___ Code Blue ___ Other (describe below) Pastoral Care Referral From ___ Patient ___ Family ___ Nurse ___ Physician ___ Editor [employer] Journal ___ Planograph Operator _x__ Other (describe below) Sacrament/Intervention _x__ Active listening ___ Anointing ___ Moravian ___ Bereavement ___ Communion ___ Yojana exploration ___ ___ Life review ___ Prayer ___ Reconciliation ___ Sacrament of Sick _x__ Supportive presence ___ Wedding ___ Other (describe below) Pastoral Comments responded to stroke alert in the ED; met with daughter and son in the room while patient was in the CT; offered support and daughter in particular was very anxious and gave long story about how the day had gone and then in retrospect how the week has been for the patient; son also adds some perspective of his time with the patient at [facility]; time given to reassure family of the prompt attention and good care to be received; assured daughter that her prompt actions were helpful for pt evaluation at this time; offered water or coffee to family members; patient returned to the room and was alert; evaluation continued but family did not request any further assistance
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
--- NOTE | 2023-03-11 16:03 | ED.RN ---
THIS RN AT BEDSIDE WITH PATIENT ON EVALUATION BY NEUROLOGIST. PT FAMILY AT BEDSIDE. AFTER COMPLETING EVALUATION, FAMILY ASKING MANY QUESTIONS. NEUROLOGIST SPENDS 20 MINUTES TALKING WITH PATIENT AND FAMILY ABOUT PLAN OF CARE IN REGARDS TO TENECTEPLASE. AFTER EXTENSIVE EDUCATION AND ANSWERING QUESTIONS. PATIENT DECIDES AGAINST TAKING TENECTEPLASE.
--- NOTE | 2023-03-11 16:15 | RAD_ITS ---
EXAM: XR CHEST, 1 VIEW CLINICAL INDICATION: Neuro deficit, acute, stroke suspected TECHNIQUE: Frontal view of the chest. COMPARISON: 09/01/2022. FINDINGS: LUNGS AND PLEURAL SPACES: Hyperinflated lungs with similar appearance of left basilar scarring or chronic atelectasis. Overall appearance likely secondary to COPD. No pneumothorax. No effusion. HEART: No significant abnormality. Cardiac silhouette not enlarged. MEDIASTINUM: Central airways and mediastinal contour are unremarkable. BONES/JOINTS: Degenerative changes and chronic compression deformities in the spine. SOFT TISSUES: No significant abnormality. VASCULATURE: Atherosclerosis. OTHER FINDINGS: Excreted contrast partially visualized in the upper collecting system. RAD/Chest 1 View IMPRESSION: 1. No definite acute pathology in the chest. 2. Hyperinflated lungs with similar appearance of left basilar scarring or chronic atelectasis. Overall appearance likely secondary to COPD. Electronically Signed: Trever Bernardo DO at 16:40 EST ,
[2023-03-11] MEDS: Aspirin 325 MG Tablet PO (16:24)
[2023-03-11] MEDS: Clopidogrel Bisulfate 300 MG Tablet PO (16:24)
--- NOTE | 2023-03-11 16:27 | NURSING ---
PCU [facility]UTE DYSEQUILIBRIUM
[2023-03-11 16:59] LABS: Magnesium 2.1 mg/dL (1.6-2.6)
--- NOTE | 2023-03-11 17:12 | ECHOD_ITS ---
Reason For Study: TIA/CVA Procedure This was a 2D Doppler, Color Flow transthoracic echocardiogram. Exam performed portable in patient room. Left Ventricle Normal size and thickness. Left ventricular systolic function is normal. The estimated ejection fraction is 55-60% %. Stage 1 diastolic dysfunction. No regional wall motion abnormalities noted. Right Ventricle Normal RV size. Normal systolic function. Mitral Valve The mitral valve is structurally normal. No prolapse or stenosis seen. Trivial mitral valve insufficiency. Tricuspid Valve Normal tricuspid valve. Mild tricuspid valve insufficiency. Pulmonary artery systolic pressure is 28 mmHg. Aortic Valve Trisinus/trileaflet aortic valve. There is no aortic stenosis. Mild (1+) aortic valve insufficiency. Pulmonic Valve The pulmonic valve is not well visualized. Trivial eccentric pulmonic valve insufficiency. Great Vessels Normal aortic root. Normal inferior vena cava. Pericardium/Pleural No pericardial effusion. MMode/2D Measurements & Calculations LVIDd: 4.8 cm IVSd: 0.90 cm Ao root diam: 3.0 cm LVIDs: 2.7 cm LVPWd: 0.95 cm RVDd: 4.1 cm FS: 43.4 % LAV(MOD-bp): 29.9 ml LVAd ap4: 20.4 cm2 SV(MOD-sp4): 37.4 ml LAV(MOD-bp) Indexed: 20.7 ml/m2 LVLd ap4: 6.4 cm LAV(MOD-sp2): 27.0 ml EDV(MOD-sp4): 53.8 ml LAV(MOD-sp4): 31.8 ml EDV(sp4-el): 54.9 ml LVAs ap4: 9.7 cm2 LVLs ap4: 4.9 cm ESV(MOD-sp4): 16.4 ml ESV(sp4-el): 16.6 ml EF(MOD-sp4): 69.6 % EF(sp4-el): 69.8 % SV(sp4-el): 38.3 ml LA dimension(2D): 3.5 cm LA A4 area: 14.0 cm2 RA A4 area: 10.8 cm2 TAPSE: 2.6 cm Time Measurements MV dec time: 0.27 sec Doppler Measurements & Calculations MV E max max: 72.6 cm/sec Lat Peak E' Max: 6.8 cm/sec Med Peak E' Max: 6.5 cm/sec MV A max max: 81.6 cm/sec E/E' lat: 10.7 E/E' med: 11.1 MV E/A: 0.89 Ao V2 max: 126.8 cm/sec AI max max: 369.2 cm/sec MV dec slope: 270.6 cm/sec2 Ao max P.4 mmHg AI max P.5 mmHg Ao V2 mean: 85.3 cm/sec Ao mean P.4 mmHg AI dec slope: 106.5 cm/sec2 Ao V2 VTI: 33.0 cm AI P1/2t: 1016 msec AV (velocity ratio): 0.84 LV V1 max: 107.3 cm/sec PA V2 max: 93.1 cm/sec PI end-d max: 80.7 cm/sec LV V1 max P.6 mmHg LV V1 mean P.4 mmHg LV V1 mean: 71.3 cm/sec LV V1 VTI: 27.8 cm TR max max: 236.6 cm/sec TR max P.4 mmHg ECHO/Echo Complete Interpretation Summary The estimated ejection fraction is 55-60% %. Left ventricular systolic function is normal. Normal size and thickness. No regional wall motion abnormalities noted. Stage 1 diastolic dysfunction. Pulmonary artery systolic pressure is 28 mmHg. Ordering Physician: Daisy Seals Referring Physician: Jennifer Klein Performed By: Nika Greenfield, VIRGEN, RVT
--- NOTE | 2023-03-11 17:12 | MRI_ITS ---
STUDY: MRI BRAIN WITHOUT CONTRAST REASON FOR EXAM: Female, 87 years old. CVA TECHNIQUE: Standardized multiplanar fat and water weighted pulse sequences were obtained. COMPARISON: CT earlier today FINDINGS: There is mild cerebral atrophy with widening of the extra-axial spaces and ventricular dilatation. There are a limited number of small white matter hyperintensities, distributed throughout the deep white matter tracts of the cerebral hemispheres, consistent with mild chronic white matter ischemic changes. There is no evidence for recent intracranial ischemia or other cause of cytotoxic edema on diffusion weighted imaging (DWI). Normal T2* images of the brain without demonstrated susceptibility artifact. There is no demonstrated hemosiderin stain. Normal bilateral basal ganglia. Normal thalami. There is no extra-axial fluid accumulation. Normal flow voids within the major intracranial circulation suggesting patency by spin echo criteria. Normal sella turcica, pituitary gland, infundibular stalk, optic chiasm and hypothalamus. Normal tectal plate and pineal gland. Normal midbrain, north and medulla. Normal cerebellum. Normal basal cisterns. Normal bilateral temporal bones. Normal bilateral internal auditory canals. There are bilateral ocular lens implants with otherwise normal intraorbital contents. Normal visualized paranasal sinuses. Normal calvarium and skull base. Normal visualized soft tissue structures. Normal visualized upper cervical spine. MRI/Brain without Contrast IMPRESSION: Involutional changes of the brain, as described above. No acute infarct. Electronically Signed: Simon Pearson MD at 21:55 EST ,
[2023-03-11] MEDS: 0.9% Normal Saline (1000mL) 1,000 ML 100 ML IV (18:16)
[2023-03-11] MEDS: Potassium Chloride Oral Tablet 20 MEQ 40 MEQ PO (18:16)
[2023-03-11 20:05] LABS: Troponin-I HS 14 pg/mL (3.0-54.0)
[2023-03-11] MEDS: Donepezil HCl 5 MG Tablet PO (20:21)
[2023-03-11] MEDS: Menthol/Lanolin/Calamine/Znox 113 GM Tube 1 APPLIC TOPICAL (20:22)
[2023-03-11 21:37] LABS: Troponin-I HS 16 pg/mL (3.0-54.0)
[2023-03-12 02:00] VITALS: BP 152/67; PULSE 57; RESP 14; TEMP 36.3; O2SAT 98
[2023-03-12 03:43] VITALS: BMI 18.0
[2023-03-12 06:00] VITALS: BP 143/64; PULSE 58; RESP 16; TEMP 35.9; O2SAT 95
[2023-03-12 07:52] VITALS: O2SAT 97
[2023-03-12 08:32] LABS: Absolute Lymphocyte Count 1.37 X10^3/uL (0.83-4.51); Absolute Neutrophil Count 2.7 X10^3/uL (2.0-7.7); Basophil# 0.03 X10^3/uL; Basophil% 0.6 % (0-1); Eosinophil# 0.14 X10^3/uL; Eosinophils% 2.9 % (0-5); Hematocrit 32.7 % (37-47); Hemoglobin 10.2 g/dL (12.0-15.0); Lymphocyte # 1.37 X10^3/ul (0.83-4.51); Mean Corp Hgb Conc 31.2 g/dL (32-36); Mean Corpuscular Hgb 28.8 pg (27.0-32.0); Mean Corpuscular Volume 92.4 fL (81-99); Mean Platelet Vol. 9.4 fl (6.2-12.0); Monocyte# 0.66 X10^3/uL; Monocyte% 13.5 % (0-10); NRBC Flagged by Analyzer 0 % (0-5); Neutrophil # 2.69 X10^3/uL (2.7-7.7); Neutrophil % 54.8 % (47-70); Platelet Count 238 K/mm3 (150-450); RBC Distribution Width CV 13.5 % (11.6-14.6); RBC Distribution Width SD 45.8 fl (35.1-43.9); Red Blood Count 3.54 M/mm3 (4.2-5.4); White Blood Count 4.9 K/mm3 (4.4-11.0)
[2023-03-12 08:46] VITALS: BP 136/63; PULSE 61; RESP 18; TEMP 36.6; O2SAT 96
[2023-03-12] MEDS: Acetaminophen 325 MG Tablet 650 MG PO (08:49)
[2023-03-12] MEDS: Clopidogrel Bisulfate 75 MG Tablet PO (08:49)
[2023-03-12] MEDS: Atorvastatin Calcium 40 MG Tablet PO (08:50)
[2023-03-12] MEDS: Escitalopram Oxalate 10 MG Tablet PO (08:50)
[2023-03-12] MEDS: Creon 3,000 unit DR Capsule 1 CAP PO (08:50)
[2023-03-12] MEDS: Aspirin 325 MG Tablet PO (08:50)
[2023-03-12] MEDS: Menthol/Lanolin/Calamine/Znox 113 GM Tube 1 APPLIC TOPICAL (08:51)
[2023-03-12 09:02] LABS: ALB/GLOB Ratio 1.1 RATIO (0.9-2.4); AST(SGOT) 29 U/L (15-37); Alanine Aminotransfer ALT/SGPT 51 U/L (13-56); Albumin, Serum 2.8 g/dL (3.2-5.0); Alkaline Phosphatase 71 U/L (45-117); Anion Gap 3 (5-15); BUN 8 mg/dL (7-18); BUN/Creat Ratio 14.7 RATIO (10-20); Chloride 112 mmol/L (98-107); Cholesterol 72 mg/dL (200); Creatinine, Serum 0.54 mg/dL (0.55-1.02); EST Glomerular Filtration Rate 113 mL/min (>60); Est Glom Filt Rate - Afr Amer 137 mL/min (>60); Estimated Creatinine Clearance 29.41 ml/min; Globulin 2.6 g/dL (2.2-4.2); Glucose 77 mg/dL (74-106); High Density Lipoprotein 50 mg/dL; Potassium 3.5 mmol/L (3.5-5.1); Protein, Total 5.4 g/dL (6.4-8.2); Sodium Level 143 mmol/L (136-145); Thyroid Stim Hormone (TSH) 1.79 uIU/mL (0.358-3.74); Triglycerides 37 mg/dL; Very Low Density Lipoprotein 7 mg/dL (5-40)
[2023-03-12 09:21] LABS: Hemoglobin A1c 5.5 % (3.8-5.6)
--- NOTE | 2023-03-12 11:00 | NEURO.PNOTE ---
Assessment and Plan: Neuro Assessment/Plan 87 y/o woman with h/o SBO s/p partial colectomy, Chronic anemia, Presumed pancreatic insufficiency, Anxiety and Depression, Chronic ataxic gait, OA, GERD, Hx VTE, Former tobacco use, Allergic rhinitis, Dementia unclear type with unclear behavioral disturbance history, history TIA p/w after an episode at [employer] with sudden onset of fatigue and malaise and near syncopal sensation almost reportedly collapsing to the ground but no loss of consciousness with onset of bilateral neck discomfort rating up into her head which she said was painful but the since resolved reportedly able to answer questions with EMS call and reportedly at that time no overt neurological symptoms but given the event prompted ED evaluation. In the ED patient initial NIH stroke scale 6 for motor arm right, motor on left, motor leg right, motor leg left, sensory alteration. Thrombolytics not administered over telestroke due to improving symptoms. CT head- no acute intracranial process. CTA- no LVO. LDL-15. A1c-5.5. TTE- EF-60%. MRI billy - no acute stroke As per daughter (main caregiver), patient has been on ASA and plavix since stroke last year with no h/o cardiac disease or recent stents. Son also reports of another episode in [facility] when she fell on recliner. Son reports of ongoing trouble with balance for some time. Today, patient reports feeling back to normal. NIHSS-0. Discussed with son and daughter in detail. Diagnosis: TIA Plan: Continue ASA and plavix for 3 weeks and then plavix can be discontinued from stroke perspective. -Given LDL of 15, decrease the dose of lipitor to 20mg daily. Repeat lipid profile in 3 months. -Given previous episode of near-syncope, would recommend event monitor on discharge. I personally attended this patient and spent a total time of 35 minutes evaluating this patient including clinical assessment, review of chart, medical history imaging, and determining appropriate treatment and workup. Subject: Neurology Subjective Today, patient reports feeling better with NIHSS-0 NIHSS NIHSS Nursing Documentation NIHSS Nursing Documentation: NIHSS: Ischemic Stroke/TIA Start: 03/11/23 17:12 Text: For PCU Patients: NIH and Neuro Check every 4 Status: Complete hours and PRN Freq: [id number] Protocol: Activity Type Activity Date Activity User E-sign Co-sign Detail Recorded Client Recorded Date Recorded By Document 12/30/23 06:00 TP Desktop 03/12/23 06:01 TP 03/12/23 06:00 NIH Stroke Scale [NIHSS] A score of 0 is normal or asymptomatic . Total possible score is 42. Inpatient: RN or Physician to activate a stroke alert for onset of new stroke symptoms or with NIHSS increase >/= 3 points. Following change in neurological status, NIHSS will be performed per physician order or more frequently PRN. -1a. Level of Consciousness Alert; keenly responsive -1b. LOC Questions Answers BOTH questions correctly. -1c. LOC Commands Performs both tasks correctly . -2. Best Gaze Normal -3. Visual No visual loss -4. Facial Palsy Normal symmetrical movements -5a. Left Arm No drift; arm holds 90 (or 45 ) degrees for full 10 seconds -5b. Right Arm No drift; arm holds 90 (or 45 ) degrees for full 10 seconds -6a. Left Leg No drift; leg holds 30-degree position for full 5 seconds -6b. Right Leg No drift; leg holds 30-degree position for full 5 seconds -7. Limb Ataxia Absent -8. Sensory Normal; no sensory loss -9. Best Language No aphasia; normal -10. Dysarthria Normal -11. Extinction and Inattention No abnormality -Total 0 Query Text:A score of 0 is normal or asymptomatic. Total possible score is 42 . ED: Notify Physician for NIHSS increase by > / = 3 points. Inpatient: RN or Physician to activate a stroke alert for NIHSS increase of > / = 3 points. Coma Scale [Assess] -Eye Opening Spontaneous -Motor Obeys Commands -Verbal Confused [Total] -Coma Scale Total 14 NIHSS 1a. Level of Consciousness: Alert; keenly responsive 1b. LOC Questions: Answers BOTH questions correctly. 1c. LOC Commands: Performs both tasks correctly. 2. Best Gaze: Normal 3. Visual: No visual loss 4. Facial Palsy: Normal symmetrical movements 5a. Left Arm: No drift; arm holds 90 (or 45) degrees for full 10 seconds 5b. Right Arm: No drift; arm holds 90 (or 45) degrees for full 10 seconds 6a. Left Leg: No drift; leg holds 30-degree position for full 5 seconds 6b. Right Leg: No drift; leg holds 30-degree position for full 5 seconds 7. Limb Ataxia: Absent 8. Sensory: Normal; no sensory loss 9. Best Language: No aphasia; normal 10. Dysarthria: Normal 11. Extinction and Inattention: No abnormality Total: 0 EEG Results Procedure Details EEG Procedure Details: MANFRED HILL is a 87 year old F with a past medical history of , who presents for evaluation of Electroencephalogram on DATE at TIME Objective Data Objective Data Vital Signs: Vital Signs Temp Pulse Resp BP Pulse Ox O2 Del Method 97.8 F 61 18 136/63 H 96 Room Air 03/12/23 08:46 03/12/23 08:46 03/12/23 08:46 03/12/23 08:46 03/12/23 08:46 03/12/23 08:46 Oxygen Delivery Method Room Air Weight: 45.3 kg Body Mass Index (BMI) 18.0 Intake & Output: Intake and Output for Last 24 Hours 03/10/23 03/11/23 03/12/23 23:59 23:59 23:59 Intake Total 200 / 200 920 / 920 Balance 200 / 200 920 / 920 Lab / Micro Data 03/12/23 07:56 03/12/23 07:56 Labs: Laboratory Results - last 24 hr 03/11/23 14:59: WBC 5.4, RBC 3.37 L, Hgb 9.9 L, Hct 30.7 L, MCV 91.1, MCH 29.4, MCHC 32.2, RDW Std Deviation 45.4 H, RDW Coeff of Devyn 13.6, Plt Count 242, MPV 9.4, Immature Gran % (Auto) 0.200, Neut % (Auto) 50.5, Lymph % (Auto) 32.0, [place] % (Auto) 14.4 H, Eos % (Auto) 2.2, Baso % (Auto) 0.7, Absolute Neuts (auto) 2.7, Absolute Lymphs (auto) 1.73, Nucleated RBC % 0, PT 13.6, INR 1.0, APTT 31.3, Sodium 144, Potassium 3.4 L, Chloride 111 H, Carbon Dioxide 30.0, Anion Gap 3 L, BUN 8, Creatinine 0.65, Estim Creat Clear Calc 30.34, Est GFR (MDRD) Af Amer 111, Est GFR (MDRD) Non-Af 92, BUN/Creatinine Ratio 12.3, Glucose 82, Calcium 8.5, Magnesium 2.1, Troponin I High Sens 12 03/11/23 18:40: Troponin I High Sens 14 03/11/23 20:50: Troponin I High Sens 16 03/12/23 07:56: WBC 4.9, RBC 3.54 L, Hgb 10.2 L, Hct 32.7 L, MCV 92.4, MCH 28.8, MCHC 31.2 L, RDW Std Deviation 45.8 H, RDW Coeff of Devyn 13.5, Plt Count 238, MPV 9.4, Immature Gran % (Auto) 0.200, Neut % (Auto) 54.8, Lymph % (Auto) 28.0, [place] % (Auto) 13.5 H, Eos % (Auto) 2.9, Baso % (Auto) 0.6, Absolute Neuts (auto) 2.7, Absolute Lymphs (auto) 1.37, Nucleated RBC % 0, Sodium 143, Potassium 3.5, Chloride 112 H, Carbon Dioxide 28.0, Anion Gap 3 L, BUN 8, Creatinine 0.54 L, Estim Creat Clear Calc 29.41, Est GFR (MDRD) Af Amer 137, Est GFR (MDRD) Non-Af 113, BUN/Creatinine Ratio 14.7, Glucose 77, Hemoglobin A1c 5.5, Calcium 8.0 L, Total Bilirubin 0.40, AST 29, ALT 51, Alkaline Phosphatase 71, Total Protein 5.4 L, Albumin 2.8 L, Globulin 2.6, Albumin/Globulin Ratio 1.1, Triglycerides 37, Cholesterol 72, LDL Cholesterol 15, VLDL Cholesterol 7, HDL Cholesterol 50, TSH 1.79 Radiography Diagnostic Testing: Radiology Impression Brain CT 03/11/23 14:43 IMPRESSION: Negative Brain CT without contrast. N.B. : The above Results were Read Back by Sanju March MD to DAVID MOSER MD, and understanding confirmed on 03/11/2023 15:17:33 (ET). Electronically Signed: Sanju March MD at 15:21 EST , ADDENDUM: 03/11/23 1528 IMPRESSION: Negative Brain CT without contrast. N.B. : The above Results were Read Back by Sanju March MD to DAVID MOSER MD, and understanding confirmed on 03/11/2023 15:17:33 (ET). Electronically Signed: Sanju March MD at 15:21 EST , Head/Neck CTA 03/11/23 14:43 IMPRESSION: 1. No intracranial great vessel stenosis. 2. Mild atherosclerotic calcifications of the distal common carotid arteries with tortuosity without significant stenosis. 3. Patent bilateral vertebral arteries without significant stenosis or dissection. N.B. : The above Results were Read Back by Sanju March MD to DAVID MOSER MD, and understanding confirmed on 03/11/2023 15:29:46 (ET). Electronically Signed: Sanju March MD at 15:30 EST , ADDENDUM: 03/11/23 1537 IMPRESSION: 1. No intracranial great vessel stenosis. 2. Mild atherosclerotic calcifications of the distal common carotid arteries with tortuosity without significant stenosis. 3. Patent bilateral vertebral arteries without significant stenosis or dissection. N.B. : The above Results were Read Back by Sanju March MD to DAVID MOSER MD, and understanding confirmed on 03/11/2023 15:29:46 (ET). Electronically Signed: Sanju March MD at 15:30 EST , Chest X-Ray 03/11/23 16:15 IMPRESSION: 1. No definite acute pathology in the chest. 2. Hyperinflated lungs with similar appearance of left basilar scarring or chronic atelectasis. Overall appearance likely secondary to COPD. Electronically Signed: Trever Bernardo DO at 16:40 EST , Brain MRI 03/11/23 17:12 IMPRESSION: Involutional changes of the brain, as described above. No acute infarct. Electronically Signed: Simon Pearson MD at 21:55 EST , Rhythm Strip Rhythm Strip: Sinus Rhythm Rate: 60 Ectopy: None Physical Exam Neuro Neuro Narrative: Neurological examination: General: The patient appears nutritionally appropriate, well-groomed, and appears comfortable in no acute distress. Mental Status: The patient?s mental status was normal including orientation, memory, attention span, concentration, and fund of knowledge. Language was intact. Cranial nerves: Visual barroso full, pupils were equal and reactive to light, and extra-ocular motion was intact. Face motion and sensation were symmetric. Hearing was symmetric to bilateral finger rub. Palate was symmetric. Bilateral shoulder shrug was intact. Tongue was midline with normal movement. There was no dysarthria. Motor: Normal strength and tone in all four extremities. No pronator drift. Bilateral fast finger movements were symmetric. Deep Tendon Reflexes: Deferred Sensation: Intact light touch bilaterally, no extinction. Coordination: Bilateral finger to nose was normal. There was no dysmetria. No dysdiadokinesia. Gait: Gait deferred at this point NIH STROKE SCALE 1a. Level of consciousness: 0 1b. Level of consciousness questions: 0 1c. Level of consciousness commands: 0 2. Best Gaze: 0 3. Visual: 0 4. Facial Palsy: 0 5a. Motor left arm: 0 5b. Motor right arm: 0 6a. Motor left le 6b. Motor right le 7. Limb Ataxia: 0 8. Sensory: 0 9. Best Language: 0 10. Dysarthria: 0 11. Extinction and Inattention: 0 TOTAL: 0
--- NOTE | 2023-03-12 11:40 | CM.UR ---
RN VANDANA Face to Face with patient for initial transition planning/care coordination assessment. RN CM introduced self and role at [facility]. Patient lying in bed, alert and oriented, son and daughter at bedside. Patient willing to participate in assessment and is able to answer all questions appropriately. Care providers, pharmacy, and demographics verified. Patient wishes to discharge home, denies need for home health at this time. Patient states she has no further needs or concerns at this time. CM to follow for discharge planning needs that may arise. PCP: Ernie Specialists: none Preferred Pharmacy: [facility] Retail Insurance: Artem CONNORS Prescription Benefit: yes Living Will/HPOA: none LNOK: daughters, son Living Arrangements: Patient lives alone in a single story duplex with no steps to enter. Patient states she is independent at home. Transportation: daughter DME/HHC: Patient has cane, walker, and grab bars at home. Patient has had [facility] in the past. Disposition Plan: Patient to discharge home with family support and follow-up plans in place. Will monitor progress with therapy. Isabel MEDINA, RN, CM
--- NOTE | 2023-03-12 11:53 | CASEMGMT ---
Social Work PHQ-9 not completed as pt did not have a stroke. ALICIA Helton
[2023-03-12 13:39] VITALS: BMI 18.0
[2023-03-12] MEDS: Ensure Plus High Protein 120 ML LIQUID PO (13:51)
--- NOTE | 2023-03-12 14:00 | CASEMGMT ---
Patient did will with therapy, no therapy recommended at discharge. Patient and daughter deny needs at discharge.
--- NOTE | 2023-03-12 14:50 | DCINST_ITS ---
Discharge Instructions Diet Discharge Diet: Low fat / Low cholesterol Activity Discharge Activity: Return to Normal Activity Weight Bearing Status: Weight bearing as tolerated Dressing / Incision Call your doctor if you observe: Fever of 101 or Higher, Shortness of breath, Dizziness, Swelling in the ankles and Chest pain Follow Up Care Test Results: Test results from this visit will be discussed in further detail at your follow- up appointment, if applicable. Discharge Plan Admission Admit Date/Time: 03/11/23 16:18 Primary Reason for Your Visit: TIA, bradycardiA Attending Provider: Shani Brandt Primary Care Provider: Jennifer Klein Consulting Providers: Aidan Mattson; Holley Brower; Roxy Bolton; Kym Phillips; Sakina Hill; Manjeet Malik; Norma Carrero; Donny Anderson; Geo Larry; Kylah Thornton; Hero Russell; Aminata Sepulveda; Jamel Dan; Ryan Watson; Froilan Ferrell; Blanca Bergeron; Derrick Kaur; Kayla Mehta; Zaki Florian; Daisy Seals Instructions Patient Instructions: TIA Dc, Understanding Bradycardia, ED TIA: Transient Ischemic Attack Discharge Orders/Prescriptions Prescriptions: New atorvastatin 20 mg tablet 20 mg PO DAILY Qty: 30 0RF Continued acetaminophen [Tylenol] 325 mg tablet 325 - 650 mg PO Q4H PRN (Reason: fever or pain) Qty: 90 0RF aspirin 81 MG tablet,delayed release (DR/EC) 81 mg PO DAILY@0800 multivitamin [One Daily Multivitamin] Tablet 1 tab PO DAILY Adult 50 Plus Probiotic 4 billion cell capsule 4,000 mmu cells PO DAILY Rx Instructions: administer with a meal potassium citrate 99 mg capsule PO clopidogrel [Plavix] 75 mg tablet 75 mg PO DAILY Qty: 90 3RF donepezil [Aricept] 5 mg tablet 5 mg PO QHS Qty: 30 3RF escitalopram oxalate [Lexapro] 5 mg tablet 10 mg PO DAILY Qty: 90 3RF Creon 3,000-9,500- 15,000 unit capsule,delayed release(DR/EC) 1 cap PO BID Qty: 60 3RF Discontinued hydrocodone-acetaminophen [hydrocodone-acetaminophen] 5-325 mg tablet 1 tab PO Q6H PRN PRN (Reason: Pain) 3 Days Qty: 12 0RF oxycodone-acetaminophen [Percocet] 5-325 mg tablet 1 tab PO Q8H PRN (Reason: pain) 5 Days Qty: 15 0RF oxycodone-acetaminophen [Percocet] 5-325 mg tablet 1 tab PO Q6H PRN (Reason: PAIN ) 4 Days Qty: 14 0RF atorvastatin [Lipitor] 40 mg tablet 40 mg PO DAILY Qty: 90 3RF Other Ambulatory Orders: 30 Day Event Recorder Preventi (Urgent) Timeframe: 1 Day [facility] Cardiovascular Services Ordered By: Dr. Shani Brandt Referrals / Follow Up: Jennifer Klein MD [Primary Care Provider] - Within 2 Weeks Rigo Comer MD [Non-Staff -Ordering Privileges] - Within 2 Weeks Disposition Disposition (needs filled in before D/C Order can be placed): Home, Self Care
--- NOTE | 2023-03-12 14:54 | PCM.DC.SUM ---
Providers Date of Admission: 03/11/23 Date of Discharge: 03/12/23 Primary Care Physician: Dr. Jennifer Klein MD Consultations 03/11/23 17:12 Consult: Tele-Neurology Routine Consulting Provider: [facility] Reason for Consult: Acute Ischemic Stroke/TIA EMERGENT Consult: No MD Notified: Yes Date Notified: 03/11/23 Time Notified: 16:21 Method of Notification: ED Physician Initiated Nursing Unit Staff Notify [facility] of Tele-Neurology Consult: Yes Reason For Visit: POSSIBLE CVA Diagnosis Discharge Diagnosis (1) Dysequilibrium: Status: Acute Code(s): R42 - Dizziness and giddiness Medications at Discharge Home Medications aspirin 81 mg tablet,delayed release 81 mg PO DAILY@0800 HEART HEALTH 07/01/20 acetaminophen 325 mg tablet (Tylenol) 325 - 650 mg (1 - 2 x 325 mg) PO Q4H PRN fever or pain #90 tabs 03/09/21 lactobacillus combination no.9 4 billion cell capsule (Adult 50 Plus Probiotic) 4,000 mmu cells PO DAILY GUT HEALTH 10/07/22 multivitamin (One Daily Multivitamin tablet) 1 tab PO DAILY HEALTH MAINTENANCE 10/07/22 potassium citrate 99 mg capsule mg PO 10/07/22 clopidogrel 75 mg tablet (Plavix) 75 mg PO DAILY BLOOD THINNER #90 tabs 11/01/22 donepezil 5 mg tablet (Aricept) 5 mg PO QHS DEMENTIA #30 tabs 11/03/22 escitalopram oxalate 5 mg tablet (Lexapro) 10 mg (2 x 5 mg) PO DAILY DEPRESSION #90 tabs 11/29/22 [id number] 3,000-9,500-15,000 unit capsule, delayed rel (Creon) 1 cap PO BID #60 caps 03/09/23 atorvastatin 20 mg tablet 20 mg PO DAILY #30 tabs 03/12/23 Hospital Course Operations None Procedures 2-D Echocardiogram Summary of Care Provided Minutes Spent on Discharge: 45 Hospital Course: Patient is an 87-year-old female with a past medical history as outlined was admitted through the ED on 03/11/2023 with a complaint of near syncope. She had a sudden onset of fatigue and malaise. A total of store and had associated bilateral neck pain but no loss of consciousness. She called the EMS and was noted to have any overt neurological symptoms. On arrival in the EMS, her NIH stroke scale was 6. CT of the brain showed no acute intracranial findings and CT of the head and neck showed no hemodynamically significant stenosis. Telestroke neurologist was consulted and recommended against tenecteplase as his symptoms had improved after she was given a full load of Plavix and aspirin. She was admitted and managed for near syncope to rule out stroke. Of note patient was noted to be bradycardic as well with her heart rate going as low as the 40s during this admission though she was mainly in the mid 50s and low 60s. She was not on any antiarrhythmic or beta-sampson medication. His symptoms completely resolved during his stay and she felt much better. She had 2D echo which showed EF of 55% to 60% with normal left ventricular systolic function and size as well as left ventricular wall thickness with no regional wall motion abnormalities noted. She had stage I diastolic dysfunction. Neurology recommended patient being on aspirin and Plavix for 3 weeks. However patient already being on aspirin and Plavix prior to admission so this was continued. Her atorvastatin was cut down to 20 mg daily from 40 mg daily per neurology recommendations. She was discharged with a 30-day event monitor which is to be sent to [facility] on completion. She is to follow-up with her primary care doctor within 1 to 2 weeks and was also referred to neurology on outpatient basis. Of note, TSH was checked and was within normal limits. Patient seen and examined prior to discharge. She had no complaints and had an uneventful night. Review of systems otherwise negative. Labs and vitals reviewed. Home medication reviewed and reconciled. Physical Exam Const alert, oriented x3 and no apparent distress General Appearance: cooperative, comfortable and well kempt Orientation / Consciousness: awake Exam Limitations: no limitations HEENT normocephalic, head/scalp atraumatic and hearing grossly normal bilaterally Mouth: oral and palatal mucosa normal Eyes PERRL, EOMs intact bilaterally and conjunctivae normal Neck no lymphadenopathy and supple Resp normal respiratory effort, no retractions, no use of accessory muscles and clear to auscultation bilaterally Cardio regular rate, regular rhythm, S1 normal heart sound, S2 normal heart sound and no murmurs GI normal to inspection, nondistended, normoactive bowel sounds, soft to palpation, non-tender and non-distended Extremity normal to inspection, full ROM and no clubbing, cyanosis or edema Skin no rashes or lesions noted Neuro oriented x3, CN's II-XII intact bilaterally, moves all extremities and no focal motor deficits Motor Exam: strength 5/5 throughout Weight / BMI Weight Weight: 99 lb 13.91 oz Body Mass Index (BMI) 18.0 ABG / Lab / Microbiology Data 03/12/23 07:56 03/12/23 07:56 Laboratory: Laboratory Results - last 24 hr 03/11/23 14:59: WBC 5.4, RBC 3.37 L, Hgb 9.9 L, Hct 30.7 L, MCV 91.1, MCH 29.4, MCHC 32.2, RDW Std Deviation 45.4 H, RDW Coeff of Devyn 13.6, Plt Count 242, MPV 9.4, Immature Gran % (Auto) 0.200, Neut % (Auto) 50.5, Lymph % (Auto) 32.0, Gem % (Auto) 14.4 H, Eos % (Auto) 2.2, Baso % (Auto) 0.7, Absolute Neuts (auto) 2.7, Absolute Lymphs (auto) 1.73, Nucleated RBC % 0, PT 13.6, INR 1.0, APTT 31.3, Sodium 144, Potassium 3.4 L, Chloride 111 H, Carbon Dioxide 30.0, Anion Gap 3 L, BUN 8, Creatinine 0.65, Estim Creat Clear Calc 30.34, Est GFR (MDRD) Af Amer 111, Est GFR (MDRD) Non-Af 92, BUN/Creatinine Ratio 12.3, Glucose 82, Calcium 8.5, Magnesium 2.1, Troponin I High Sens 12 03/11/23 18:40: Troponin I High Sens 14 03/11/23 20:50: Troponin I High Sens 16 03/12/23 07:56: WBC 4.9, RBC 3.54 L, Hgb 10.2 L, Hct 32.7 L, MCV 92.4, MCH 28.8, MCHC 31.2 L, RDW Std Deviation 45.8 H, RDW Coeff of Devyn 13.5, Plt Count 238, MPV 9.4, Immature Gran % (Auto) 0.200, Neut % (Auto) 54.8, Lymph % (Auto) 28.0, Gem % (Auto) 13.5 H, Eos % (Auto) 2.9, Baso % (Auto) 0.6, Absolute Neuts (auto) 2.7, Absolute Lymphs (auto) 1.37, Nucleated RBC % 0, Sodium 143, Potassium 3.5, Chloride 112 H, Carbon Dioxide 28.0, Anion Gap 3 L, BUN 8, Creatinine 0.54 L, Estim Creat Clear Calc 29.41, Est GFR (MDRD) Af Amer 137, Est GFR (MDRD) Non-Af 113, BUN/Creatinine Ratio 14.7, Glucose 77, Hemoglobin A1c 5.5, Calcium 8.0 L, Total Bilirubin 0.40, AST 29, ALT 51, Alkaline Phosphatase 71, Total Protein 5.4 L, Albumin 2.8 L, Globulin 2.6, Albumin/Globulin Ratio 1.1, Triglycerides 37, Cholesterol 72, LDL Cholesterol 15, VLDL Cholesterol 7, HDL Cholesterol 50, TSH 1.79 Radiography Diagnostic Testing: Radiology Impression Brain CT 03/11/23 14:43 IMPRESSION: Negative Brain CT without contrast. N.B. : The above Results were Read Back by Sanju March MD to DAVID MOSER MD, and understanding confirmed on 03/11/2023 15:17:33 (ET). Electronically Signed: Sanju March MD at 15:21 EST , ADDENDUM: 03/11/23 1528 IMPRESSION: Negative Brain CT without contrast. N.B. : The above Results were Read Back by Sanju March MD to DAVID MOSER MD, and understanding confirmed on 03/11/2023 15:17:33 (ET). Electronically Signed: Sanju March MD at 15:21 EST , Head/Neck CTA 03/11/23 14:43 IMPRESSION: 1. No intracranial great vessel stenosis. 2. Mild atherosclerotic calcifications of the distal common carotid arteries with tortuosity without significant stenosis. 3. Patent bilateral vertebral arteries without significant stenosis or dissection. N.B. : The above Results were Read Back by Sanju March MD to DAVID MOSER MD, and understanding confirmed on 03/11/2023 15:29:46 (ET). Electronically Signed: Sanju March MD at 15:30 EST , ADDENDUM: 03/11/23 1537 IMPRESSION: 1. No intracranial great vessel stenosis. 2. Mild atherosclerotic calcifications of the distal common carotid arteries with tortuosity without significant stenosis. 3. Patent bilateral vertebral arteries without significant stenosis or dissection. N.B. : The above Results were Read Back by Sanju March MD to DAVID MOSER MD, and understanding confirmed on 03/11/2023 15:29:46 (ET). Electronically Signed: Sanju March MD at 15:30 EST , Chest X-Ray 03/11/23 16:15 IMPRESSION: 1. No definite acute pathology in the chest. 2. Hyperinflated lungs with similar appearance of left basilar scarring or chronic atelectasis. Overall appearance likely secondary to COPD. Electronically Signed: Trever Bernardo DO at 16:40 EST , Brain MRI 03/11/23 17:12 IMPRESSION: Involutional changes of the brain, as described above. No acute infarct. Electronically Signed: Simon Pearson MD at 21:55 EST , Echocardiogram 03/11/23 17:12 Interpretation Summary The estimated ejection fraction is 55-60% %. Left ventricular systolic function is normal. Normal size and thickness. No regional wall motion abnormalities noted. Stage 1 diastolic dysfunction. Pulmonary artery systolic pressure is 28 mmHg. Ordering Physician: Daisy Seals Referring Physician: Jennifer Klein Performed By: Nika Greenfield, VIRGEN, RVT D/C Instructions Discharge Diet: Low fat / Low cholesterol Discharge Activity: Return to Normal Activity Weight Bearing Status: Weight bearing as tolerated Call your doctor if you observe: Fever of 101 or Higher, Shortness of breath, Dizziness, Swelling in the ankles and Chest pain Meaningful Use Info Meaningful Use Diagnoses (Choose all that apply): None applicable Discharge Plan Admission Admit Date/Time: 03/11/23 16:18 Primary Reason for Your Visit: TIA, bradycardiA Attending Provider: Shani Brandt Primary Care Provider: Jennifer Klein Consulting Providers: Aidan Mattson; Holley Brower; Roxy Bolton; Kym Phillips; Sakina Hill; Manjeet Malik; Norma Carrero; Donny Anderson; Geo Larry; Kylah Thornton; Hero Russell; Aminata Sepulveda; Jamel Dan; Ryan Watson; Froilan Ferrell; Blanca Bergeron; Derrick Kaur; Kayla Mehta; Zaki Florian; Daisy Seals Instructions Patient Instructions: TIA Dc, Understanding Bradycardia, ED TIA: Transient Ischemic Attack Discharge Orders/Prescriptions Prescriptions: New atorvastatin 20 mg tablet 20 mg PO DAILY Qty: 30 0RF Continued acetaminophen [Tylenol] 325 mg tablet 325 - 650 mg PO Q4H PRN (Reason: fever or pain) Qty: 90 0RF aspirin 81 MG tablet,delayed release (DR/EC) 81 mg PO DAILY@0800 multivitamin [One Daily Multivitamin] Tablet 1 tab PO DAILY Adult 50 Plus Probiotic 4 billion cell capsule 4,000 mmu cells PO DAILY Rx Instructions: administer with a meal potassium citrate 99 mg capsule PO clopidogrel [Plavix] 75 mg tablet 75 mg PO DAILY Qty: 90 3RF donepezil [Aricept] 5 mg tablet 5 mg PO QHS Qty: 30 3RF escitalopram oxalate [Lexapro] 5 mg tablet 10 mg PO DAILY Qty: 90 3RF Creon 3,000-9,500- 15,000 unit capsule,delayed release(DR/EC) 1 cap PO BID Qty: 60 3RF Discontinued hydrocodone-acetaminophen [hydrocodone-acetaminophen] 5-325 mg tablet 1 tab PO Q6H PRN PRN (Reason: Pain) 3 Days Qty: 12 0RF oxycodone-acetaminophen [Percocet] 5-325 mg tablet 1 tab PO Q8H PRN (Reason: pain) 5 Days Qty: 15 0RF oxycodone-acetaminophen [Percocet] 5-325 mg tablet 1 tab PO Q6H PRN (Reason: PAIN ) 4 Days Qty: 14 0RF atorvastatin [Lipitor] 40 mg tablet 40 mg PO DAILY Qty: 90 3RF Other Ambulatory Orders: 30 Day Event Recorder Preventi (Urgent) Timeframe: 1 Day Facility: [facility] - Location: Cardiovascular Services Ordered By: Dr. Shani Brandt Referrals / Follow Up: Jennifer Klein MD [Primary Care Provider] - Within 2 Weeks Rigo Comer MD [Non-Staff -Ordering Privileges] - Within 2 Weeks Disposition Disposition (needs filled in before D/C Order can be placed): Home, Self Care Charges/Coding Visit Charges Inpatient E&M: 81500 Disch Hosp >30min
[2023-03-12 14:55] VITALS: BP 140/65; PULSE 61; RESP 18; TEMP 36.6; O2SAT 98
== END 2023-03-12 16:34 | disposition home or self-care (01) | DRG 69 ==
LOC: ED 16:38 → PCU 16:57
PROVIDERS: Admitting Provider Family Medicine; Emergency Provider Emergency Medicine; PCP Internal Medicine; Visit Provider Student in an Organized Health Care Education/Training Program
DX: R55 Syncope and collapse (principal); F03.90 Unspecified dementia, unspecified severity, without behavioral disturbance, psychotic disturbance, mood disturbance, and anxiety; E78.5 Hyperlipidemia, unspecified; F32.A Depression, unspecified; K21.9 Gastro-esophageal reflux disease without esophagitis; R00.1 Bradycardia, unspecified; F41.9 Anxiety disorder, unspecified; M54.2 Cervicalgia; E87.6 Hypokalemia; Z79.82 Long term (current) use of aspirin; Z86.73 Personal history of transient ischemic attack (TIA), and cerebral infarction without residual deficits; Z79.02 Long term (current) use of antithrombotics/antiplatelets; Z87.891 Personal history of nicotine dependence; Z79.899 Other long term (current) drug therapy
CPT/HCPCS: 36415; 70450; 70496; 70498; 70551; 71045; 80048; 80053; 80061; 83036; 83735; 84443; 84484; 85025; 85610; 85730; 93005; 93306; 94668; 94762; 96360; 96361; 97161; 97166; 99221; 99252; 99285; J7030; G0378; G0463

== ENCOUNTER → 2023-04-26 | Outpatient (CLI) | payer MEDICARE, SELFPAY ==
--- NOTE | 2023-04-26 12:40 | RAD_ITS ---
STUDY: X-RAY - LEFT SHOULDER REASON FOR EXAM: Female, 87 years old. Palpable lump overlying the scapula. TECHNIQUE: 5 view(s) of the shoulder. COMPARISON: None. FINDINGS: Normal glenohumeral articulation. There is degenerative arthrosis of the acromioclavicular joint without inferior osseous spur formation. Normal acromion. Normal humeral head and visualized proximal humerus. The soft tissue structures are unremarkable. Normal visualized pulmonary apex. RAD/Shoulder min 2 Views IMPRESSION: Degenerative changes of the acromioclavicular joint. Electronically Signed: Asher Meng MD at 13:00 EST ,
== END | disposition home or self-care (01) ==
PROVIDERS: PCP Internal Medicine; Referring Provider Physician Assistant; Visit Provider Physician Assistant
DX: R52 Pain, unspecified (principal)
CPT/HCPCS: 73030

== ENCOUNTER 2023-04-29 17:59 | Emergency (ER) | payer MEDICARE, SELFPAY ==
[2023-04-29] VITALS (8 sets, daily range): BP systolic 120–146; BP diastolic 61–104; PULSE 59–89; RESP 16–20; TEMP 36–37; O2SAT 96–99; BMI 18.8; BMI 19.4
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
--- NOTE | 2023-04-29 18:55 | EKG12_ITS ---
Test Reason : CP Blood Pressure : / mmHG Vent. Rate : 074 BPM Atrial Rate : 074 BPM P-R Int : 154 ms QRS Dur : 136 ms QT Int : 414 ms P-R-T Axes : 060 -37 008 degrees QTc Int : 459 ms Normal sinus rhythm Possible Left atrial enlargement Left axis deviation Right bundle branch block Minimal voltage criteria for LVH, may be normal variant ( R in aVL ) Abnormal ECG Confirmed by Luiz Bell ([id number]), scientific publications editor CORNELIO BRYSON ([id number]) on 05/02/2023 9:48:58 AM Referred By: DOLORES Confirmed By:Luiz Bell
--- OUTSIDE RECORDS SUMMARY | 2023-04-29 18:57 | XMS RPT_ITS | CCD ---
Author Name Unknown Address [address] [place] [address] Organization [facility] Care Team Providers Care Ambulance Paramedic Name Role Phone ARELI CAMPBELL Unavailable Unavailable [...] Unavailable Unavailable MARTY ROCK MD Unavailable Unavailable FENZL AURELIO E Unavailable Unavailable FENZL, AURELIO E [...] Consulting Unavailable ARELI CAMPBELL MD Admitting Unavailable AERLI CAMPBELL MD Attending Unavailable ARELI CAMPBELL MD [...] Patel MD, Tierra Mirza Primary Care Provider [phone] EL HARDY Referring Unavailable TIERRA PATEL Primary [...] Translations: [TAPE] Propensity to adverse reactions (disorder) [facility] Repository (3 sources) estradiol; Translations: [ESTRADIOL] Drug Allergy 8 [facility] Repository (2 sources) estradiol Drug Allergy [facility] Repository (2 sources) penicillin Drug Allergy [facility] Repository (2 sources) Sulfonamides (Antibiotic) Drug allergy (disorder) [facility] Repository (2 sources) NSAID Drug allergy (disorder) [facility] Repository (2 sources) NOVOCAIN Drug allergy (disorder) [facility] Repository (8 sources) Acetate; Translations: [ACETATE SALT] Drug Allergy 5 Hives [facility] (8 sources) Adhesive Tape; Translations: [ADHESIVE TAPE (ROSINS)] Propensity to adverse reactions to substance 1 Rash, Itching [facility] (8 sources) Ciprofloxacin; Translations: [CIPROFLOXACIN] Drug Allergy 9 Swelling [facility] Work Phone: (7 sources) Estradiol Drug Allergy 8 GI Upset [facility] Work Phone: (8 sources) Estradiol / Levonorgestrel; Translations: [ESTRADIOL-DANIELLE ORGESTREL] Drug Allergy 8 Rash [facility] Work Phone: (8 sources) Estrogens, Conjugated (MCFP); Translations: [CONJUGATED ESTROGENS] Drug Allergy 8 GI Upset [facility] Work Phone: (8 sources) hydrOXYzine; Translations: [HYDROXYZINE] Drug Allergy 4 Other: See Comments [facility] Work Phone: (8 sources) Non-steroidal anti-inflammator y agent; Translations: [NSAIDS (NON-STEROIDAL ANTI-INFLAMMATOR Y DRUG)] Propensity to adverse reactions 8 GI Upset [facility] Work Phone: (8 sources) Penicillins; Translations: [PENICILLINS] Propensity to adverse reactions 5 [facility] Work Phone: (8 sources) Procaine; Translations: [PROCAINE HCL] Drug Allergy 5 [facility] Work Phone: (8 sources) Sulfonamides (Antibiotic); Translations: [SULFA (SULFONAMIDE ANTIBIOTICS)] Propensity to adverse reactions 5 [facility] Work Phone: (8 sources) Sodium Phosphates-Pramo x-Gly; Translations: [SODIUM PHOSPHATES-PRAMO X-GLY] Drug Intolerance 1 Intolerance [facility] Medications Current Medications Medication Drug Class(es) [...] 18:37-0400 Body temperature 98.4 [degF] Tracey Praisler-Wood SURVEY SUPERVISOR.AIRPLANE CAPTAIN Work Phone: [facility] 12-24-2022 18:37-0400 Body weight 45.81 kg Tracey Prabobler-Vijay SURVEY SUPERVISOR.AIRPLANE CAPTAIN Work Phone: [facility] 12-24-2022 18:37-0400 Diastolic blood pressure 78 mm[Hg] Tracey Praisler-Wood SURVEY SUPERVISOR.AIRPLANE CAPTAIN Work Phone: [facility] 12-24-2022 18:37-0400 Heart rate 84 /min Tracey Praisler-Wood SURVEY SUPERVISOR.AIRPLANE CAPTAIN Work Phone: [facility] 12-24-2022 18:37-0400 Respiratory rate 18 /min Tracey Praisler-Wood SURVEY SUPERVISOR.AIRPLANE CAPTAIN Work Phone: [facility] 12-24-2022 18:37-0400 SaO2% (BldA) [Mass fraction] 99 % Tracey Praisler-Wood SURVEY SUPERVISOR.AIRPLANE CAPTAIN Work Phone: [facility] 12-24-2022 18:37-0400 Systolic blood pressure 126 mm[Hg] Tracey Praisler-Wood SURVEY SUPERVISOR.AIRPLANE CAPTAIN Work Phone: [facility] 08-26-2022 14:03-0400 Body temperature 98.2 [degF] El Hardy SURVEY SUPERVISOR.AIRPLANE CAPTAIN Work Phone: [facility] 08-26-2022 14:03-0400 Body weight 45.9 kg El Pendlebury SURVEY SUPERVISOR.AIRPLANE CAPTAIN Work Phone: [facility] 08-26-2022 14:03-0400 Diastolic blood pressure 80 mm[Hg] El Pendlebury SURVEY SUPERVISOR.AIRPLANE CAPTAIN Work Phone: [facility] 08-26-2022 14:03-0400 Heart rate 88 /min El Pendlebury SURVEY SUPERVISOR.AIRPLANE CAPTAIN Work Phone: [facility] 08-26-2022 14:03-0400 Respiratory rate 18 /min El Pendlebury SURVEY SUPERVISOR.AIRPLANE CAPTAIN Work Phone: [facility] 08-26-2022 14:03-0400 SaO2% (BldA) [Mass fraction] 96 % El Pendlebury SURVEY SUPERVISOR.AIRPLANE CAPTAIN Work Phone: [facility] 08-26-2022 14:03-0400 Systolic blood pressure 128 mm[Hg] El Pendlebury SURVEY SUPERVISOR.AIRPLANE CAPTAIN Work Phone: [facility] 08-17-2022 17:49-0400 Body temperature 98.6 [degF] El Pendlebury SURVEY SUPERVISOR.AIRPLANE CAPTAIN Work Phone: [facility] 08-17-2022 17:49-0400 Body weight 44.73 kg El Pendlebury SURVEY SUPERVISOR.AIRPLANE CAPTAIN Work Phone: [facility] 08-17-2022 17:49-0400 Diastolic blood pressure 74 mm[Hg] El Pendlebury SURVEY SUPERVISOR.AIRPLANE CAPTAIN Work Phone: [facility] 08-17-2022 17:49-0400 Heart rate 84 /min El Pendlebury SURVEY SUPERVISOR.AIRPLANE CAPTAIN Work Phone: [facility] 08-17-2022 17:49-0400 Respiratory rate 16 /min El Pendlebury SURVEY SUPERVISOR.AIRPLANE CAPTAIN Work Phone: [facility] 08-17-2022 17:49-0400 SaO2% (BldA) [Mass fraction] 96 % El Pendlebury SURVEY SUPERVISOR.AIRPLANE CAPTAIN Work Phone: [facility] 08-17-2022 17:49-0400 Systolic blood pressure 120 mm[Hg] El Hardy SURVEY SUPERVISOR.AIRPLANE CAPTAIN Work Phone: [facility] 07-16-2020 14:30-0400 Body height 157.5 cm Jessica Cano APRN AIRPLANE CAPTAIN Work Phone: [facility] 07-16-2020 14:30-0400 Body mass index (BMI) [Ratio] 18.84 kg/m2 Jessica Cano EDILIA AIRPLANE CAPTAIN Work Phone: [facility] 07-16-2020 14:30-0400 Body weight 46.72 kg Jessica Cano APRN AIRPLANE CAPTAIN Work Phone: [facility] 07-16-2020 14:30-0400 Diastolic blood pressure 64 mm[Hg] Jessica Cano APRN AIRPLANE CAPTAIN Work Phone: [facility] 07-16-2020 14:30-0400 Heart rate 71 /min Jessica Cano EDILIA AIRPLANE CAPTAIN Work Phone: [facility] 07-16-2020 14:30-0400 Systolic blood pressure 118 mm[Hg] Jessica Cano APRN AIRPLANE CAPTAIN Work Phone: [facility] Encounters Encounter Date Encounter Type Care Provider Facility Start: 12-25-2022 End: 12-25-2022 ambulatory TIERRA PATEL Facility:[facility] Start: 12-25-2022 End: 12-25-2022 Patient encounter procedure Tracey Valle SURVEY SUPERVISOR.AIRPLANE CAPTAIN Work Phone: [facility] Care Plan of Treatment Date Care Activity Detail Author Start: 03-22-2026 Urine microalbumin profile [facility] Start: 11-12-2022 Influenza [facility] Start: 03-14-2022 ADVANCE DIRECTIVE DISCUSSION ADVANCE DIRECTIVE DISCUSSION [facility] Start: 03-14-2022 DEPRESSION ASSESSMENT DEPRESSION ASSESSMENT [facility] Start: 11-12-2020 Influenza vaccination given INFLUENZA VACCINE (Season Ended) [facility] Start: 10-20-2020 End: 10-20-2020 Patient encounter procedure 10/20/2020 Appointment [facility] Sharona Brothers MD [address] [place] [address] [phone] [facility] Start: 08-05-2020 End: 08-05-2020 Patient encounter procedure 08/05/2020 Appointment [facility] Jessica Cano APRN AIRPLANE CAPTAIN [phone] [facility] [address] [place] [address] [phone] [facility] Start: 06-12-2019 DIABETES SCREEN DIABETES SCREEN [facility] Start: 06-12-2019 Diabetes Screening Diabetes Screening [facility] Start: 2002 Fall risk assessment FALL RISK [facility] Start: 2002 Glaucoma screening GLAUCOMA/EYE EXAM AGE 65+ [facility] Start: 2002 Osteoporosis risk assessment done BONE DENSITY SCREENING [facility] Start: 12-01-1987 SHINGRIX VACCINE (1 of 2) SHINGRIX VACCINE (1 of 2) [facility] Start: 12-01-1987 Zoster vaccine hzv live for subcutaneous use ZOSTER (SHINGLES) VACCINE (1 of 2) [facility] Start: 1977 Screening mammography MAMMOGRAM [facility] Start: 12-01-1955 ANNUAL WELLNESS VISIT ANNUAL WELLNESS VISIT [facility] Start: 1949 Depression screening using PHQ-9 (Patient Health Questionnaire 9) score DEPRESSION SCREENING [facility] Start: 1948 Diphtheria + pertussis + tetanus vaccine (product) DTAP/TDAP/TD VACCINE (1 - Tdap) [facility] Start: 05-30-1938 COVID-19 VACCINE (#1) COVID-19 VACCINE (#1) [facility] End: 08-16-2021 Venous Insufficiency Study-Bilat Lower Ext Venous Insufficiency Study-Bilat Lower Ext Cardiac Services Routine Varicose veins of lower extremity with inflammation, bilateral 1 Occurrences starting 07/16/2020 until 08/16/2021 [facility] Immunizations Immunization Date Immunization Notes Care Provider Violette dupree 02-22-2022 influenza virus vaccine, unspecified formulation Momo Gongora APRN.AIRPLANE CAPTAIN Work Phone: [facility] 01-01-2019 influenza virus vaccine, unspecified formulation Jessica Cano APRN AIRPLANE CAPTAIN Work Phone: [facility] 03-22-2016 tetanus toxoid, redu laura diphtheria toxoid, and acellular pertussis vaccine, adsorbed El Pendlebury SURVEY SUPERVISOR.AIRPLANE CAPTAIN Work Phone: [facility] 05-06-2015 pneumococcal conjuga te vaccine, 13 valent El Pendlebury SURVEY SUPERVISOR.AIRPLANE CAPTAIN Work Phone: [facility] Work Phone: 12-18-2014 influenza, high dose seasonal, preservative-free El Pendlebury SURVEY SUPERVISOR.AIRPLANE CAPTAIN Work Phone: [facility] 01-08-2014 influenza, seasonal, injectable El Pendlebury SURVEY SUPERVISOR.AIRPLANE CAPTAIN Work Phone: [facility] 01-04-2013 influenza virus vaccine, unspecified formulation El Pendlebury SURVEY SUPERVISOR.AIRPLANE CAPTAIN Work Phone: [facility] 12-27-2011 influenza virus vaccine, unspecified formulation El Pendlebury SURVEY SUPERVISOR.AIRPLANE CAPTAIN Work Phone: [facility] 01-22-2010 influenza virus vaccine, unspecified formulation El Pendlebury SURVEY SUPERVISOR.AIRPLANE CAPTAIN Work Phone: [facility] 12-14-2008 influenza virus vaccine, unspecified formulation El Pendlebury SURVEY SUPERVISOR.AIRPLANE CAPTAIN Work Phone: [facility] Work Phone: 01-18-2008 influenza virus vaccine, unspecified formulation El Pendlebury SURVEY SUPERVISOR.AIRPLANE CAPTAIN Work Phone: [facility] Work Phone: 01-23-2007 influenza virus vaccine, unspecified formulation El Pendlebury SURVEY SUPERVISOR.AIRPLANE CAPTAIN Work Phone: [facility] Work Phone: 01-11-2006 influenza virus vaccine, unspecified formulation El Pendlebury SURVEY SUPERVISOR.AIRPLANE CAPTAIN Work Phone: [facility] 02-09-2005 influenza virus vaccine, unspecified formulation El Pendlebury SURVEY SUPERVISOR.AIRPLANE CAPTAIN Work Phone: [facility] Work Phone: 02-09-2005 pneumococcal polysaccharide vaccine, 23 valent El Antony SURVEY SUPERVISOR.AIRPLANE CAPTAIN Work Phone: [facility] Work Phone: 07-12-2004 tetanus and diphther ia toxoids, not adsorbed, for adult use El Rubiomargaux SURVEY SUPERVISOR.AIRPLANE CAPTAIN Work Phone: [facility] Work Phone: Payers Date Payer Category Payer Medicare [id number] 2020 Medicare ANTHEM MEDICARE ADVANTAGE [facility] [id number] 2020-Present [phone] [address] [address] [place], [place] [id number] Medicare [id number] 2020 Unknown ANTHEM BLUE CROS S AND BLUE SHIELD ANTHEM MEDIBLUE HMO [id number] 2020-Present [phone] [address] [place] [address] [facility] [id number] 2016 Unknown [id number] 2016 Medicare [id number] 1937 Unknown [id number] 1 1937 Unknown [id number] 1 1937 Unknown [id number] 1 1937 Unknown [id number] 1 1937 Unknown [id number] 1 1937 Unknown [id number] 1 1937 Unknown [id number] 1 Medicare [id number] Social History Date Type Detail Facility Start: 07-16-2020 [facility] Start: 07-16-2020 End: 08-17-2022 Tobacco use and exposure Never used [facility] Start: 07-16-2020 Alcohol intake Lifetime non-d andrey (finding) [facility] Start: 07-16-2020 History SDOH Alcohol Frequency 1 [facility] Start: 1935 Sex Assigned At Not on file G [facility] Start: 08-17-2022 Tobacco smoking stat [facility] Ex-smoker [facility] Work Phone: History of tobacco use Current smoker [facility] Work Phone: History of tobacco use Cigarette Smoker C [facility] Work Phone: Start: 08-17-2022 End: 08-31-2022 Cigarettes smoked current (pack per day) - Reported 0.5 [facility] Start: 08-17-2022 End: 12-24-2022 Alcohol intake Current non-drinker of alcohol (finding) [facility] Start: 08-17-2022 Tobacco Comment quit 1992 [facility] Start: 08-31-2022 End: 11-23-2022 Tobacco use panel [facility] National Score (1-10 0), lower number is lower risk 70 [facility] Clinical Notes 11-25-2010 to 12-25-2022 Patient InstructionsTracey Valle APRN.CNP - 12/25/2022 2:41 PM EDTPatient Tracey Conklin APRN.CNP - 12/24/2022 6:56 PM EDTMomo Gongora APRN.CNP - 11/23/2022 6:54 PM EDT Note Date & Type Note Facility 12-25-2022 Note HNO ID: [id number] Author: Tracey Valle APRN.CNP Service: ? Author [...] SURGICAL HISTORY OF bile duct surg @ [facility] PAST SURGICAL HISTORY OF 03/2015 had vein [...] Tape (Rosins), Estradiol, Fleet Phospho-Soda Accu-Prep [Sodium Qfudyccdgb-Ipivnn-Kha], Hydroxyzine, Novocain [Procaine Hcl], Nsaids (Non-Steroidal Anti-Inflammatory [...] (FLONASE) 50 mcg/actuation nasal spray Use 1 Curran in each nostril once daily. ONE DAILY MULTIVITAMIN ORAL Take by mouth once daily. vitamins oxyCODONE-acetaminophen (PERCOCET) 5-325 mg tablet Take 1 tablet by mouth every 4 hours as needed. Potassium 99 mg tab Take 1 tablet by mouth as needed. vit calc,iron,folic ( #2 ORAL) Joseluis (more content not included)... [facility] 12-25-2022 Instructions Tracey Valle APRN.DEBORA - 12/25/2022 [...] which would likely bleed also. Tracey Valle APRN.AIRPLANE CAPTAIN documented in this encounter [facility] 12-25-2022 History of Presen t illness [...] SURGICAL HISTORY OF bile duct surg @ [facility] PAST SURGICAL HISTORY OF 03/2015 had vein [...] Tape (Rosins), Estradiol, Fleet Phospho-Soda Accu-Prep [Sodium Odkgxdpuhf-Copvpi-Lvw], Hydroxyzine, Novocain [Procaine Hcl], Nsaids (Non-Steroidal Anti-Inflammatory [...] (FLONASE) 50 mcg/actuation nasal spray Use 1 Curran in each nostril once daily. ONE DAILY [...] Tracey Valle APRN.DEBORA documented in this encounter [facility] 12-24-2022 Note HNO ID: [id number] Author: Tracey Valle APRN.DEBORA Service: ? Author [...] SURGICAL HISTORY OF bile duct surg @ [facility] PAST SURGICAL HISTORY OF 03/2015 had vein [...] Tape (Rosins), Estradiol, Fleet Phospho-Soda Accu-Prep [Sodium Gokhooetot-Ftaanv-Hyc], Hydroxyzine, Novocain [Procaine Hcl], Nsaids (Non-Steroidal Anti-Inflammatory [...] (FLONASE) 50 mcg/actuation nasal spray Use 1 Curran in each nostril once daily. ONE DAILY MULTIVITAMIN ORAL Take by mouth once daily. vitamins oxyCODONE-acetaminophen (PERCOCET) 5-325 mg tablet Take 1 tablet by mouth every 4 hours as needed (more content not included)... [facility] 12-24-2022 Instructions Tracey Valle APRN.AIRPLANE CAPTAIN - 12/24/2022 7:03 PM EDT ASSESSMENT/PLAN: 1. [...] medical evaluation if any occur. Tracey Valle APRN.AIRPLANE CAPTAIN documented in this encounter [facility] 12-24-2022 History of Presen t illness [...] SURGICAL HISTORY OF bile duct surg @ [facility] PAST SURGICAL HISTORY OF 03/2015 had vein [...] Tape (Rosins), Estradiol, Fleet Phospho-Soda Accu-Prep [Sodium Qtayfyqmpk-Boqpnk-Epp], Hydroxyzine, Novocain [Procaine Hcl], Nsaids (Non-Steroidal Anti-Inflammatory [...] (FLONASE) 50 mcg/actuation nasal spray Use 1 Curran in each nostril once daily. ONE DAILY [...] Tracey Valle APRN.DEBORA documented in this encounter [facility] 11-23-2022 Note HNO ID: [id number] Author: Momo Gongora APRN.DEBORA Service: ? Author Type: Nurse Practitioner Type: Progress Notes Filed: 11/23/2022 6:54 PM Note Text: Patient triaged at [facility]. Here today with fall 1 hour ago, hit head, left shoulder/elbow/hand hurts. Right hand bleeding. I will refer to ER. Family to drive pov to [facility] ER. [facility] 11-23-2022 History of Presen t illness Narrative Patient triaged at [facility]. Here today with fall 1 hour ago, hit head, left shoulder/elbow/hand hurts. Right hand bleeding. I will refer to ER. Family to drive pov to [facility] ER. documented in this encounter [facility] 08-31-2022 Note HNO ID: [id number] Author: Mandy Sepulveda Service: ? Author Type: [...] (FLONASE) 50 mcg/actuation nasal spray Use 1 Curran in each nostril once daily. Cholecalciferol, Vitamin [...] LEG 1970s Varicose (more content not included)... [facility] 08-31-2022 Note HNO ID: [id number] Author: Marley Tate MA Service: ? Author Type: Vp Biology Type: Progress Notes Filed: 08/31/2022 12:14 PM [...] she hurt it a few weeks ago. [facility] 08-31-2022 Instructions Mandy Sepulveda - 08/31/2022 9:42 AM EDT Recommend lace up tennis shoe, ie ministerio or maral Recommend placing foot in cold water bath tub x 10 minutes twice daily Rest your foot for the next 1-2 weeks and your pain should improve. documented in this encounter [facility] 08-31-2022 History of Presen t illness [...] (FLONASE) 50 mcg/actuation nasal spray Use 1 Curran in each nostril once daily. Cholecalciferol, Vitamin [...] DIAGNOSTIC 06/10/2006 EGD HEMORRHOIDECTOMY INT & XTRNL [facility]UMN/ELAIZAR 2006 LAPAROSCOPY COLECTOMY PARTIAL W/ANASTOMOSIS 08/20/08 for diverticulitis, appendectomy at same time LIGJ DIVJ &/EXCJ VARICOSE VEIN CLUSTER 1 LEG Varicose Vein Surgery right leg PAST SURGICAL HISTORY OF 1997 and 2006 hiatal hernia surgery x 2 PAST SURGICAL HISTORY OF 200? left breast cyst bengin PAST SURGICAL HISTORY OF bile duct surg @ [facility] PAST SURGICAL HISTORY OF 03/2015 had vein [...] Sepulveda DPM Podiatry [address] [facility] [address] Dept: [phone] Dept Patient presents here today for right ankle pain and injury. Patient states that she isn't in pain at the moment but was hurting this morning. States she went to the urgent care and they told her to stay off it and taped her toes. He recommended she come here. Patient states she hurt it a few weeks ago. documented in this encounter [facility] 08-26-2022 Note HNO ID: [id number] Author: RT Saman(Philip) Service: ? Author Type: Grommet Man Type: Progress Notes Filed: 08/26/2022 2:34 PM [...] RT Saman(R) August 26, 2022 2:18 PM [facility] 08-26-2022 Note HNO ID: [id number] Author: El Hardy APRN.AIRPLANE CAPTAIN Service: ? Author Type: Nurse Practitioner Type: [...] SURGICAL HISTORY OF bile duct surg @ [facility] PAST SURGICAL HISTORY OF 03/2015 had vein [...] Tape (Rosins), Estradiol, Fleet Phospho-Soda Accu-Prep [Sodium Ncjiiadqhh-Pzytkb-Tnw], Hydroxyzine, Novocain [Procaine Hcl], Nsaids (Non-Steroidal Anti-Inflammatory [...] (FLONASE) 50 mcg/actuation nasal spray Use 1 Curran in each nostril once daily. cyanocobalamin, vitamin [...] Cholecalciferol, Vitamin D (more content not included)... [facility] 08-26-2022 History of Presen t illness Narrative [...] SURGICAL HISTORY OF bile duct surg @ [facility] PAST SURGICAL HISTORY OF 03/2015 had vein [...] Tape (Rosins), Estradiol, Fleet Phospho-Soda Accu-Prep [Sodium Hcspyamvfe-Vpcntu-Iyl], Hydroxyzine, Novocain [Procaine Hcl], Nsaids (Non-Steroidal Anti-Inflammatory [...] (FLONASE) 50 mcg/actuation nasal spray Use 1 Curran in each nostril once daily. cyanocobalamin, vitamin [...] of care. This note was generated using Absio software. It may contain errors in wording, punctuation, or spelling. El Hardy APRN.EDBORA documented in this encounter [facility] 08-18-2022 Miscellaneous Notes Pt daughter called [...] El Hardy APRN.CNP documented in this encounter [facility] 08-17-2022 Note HNO ID: [id number] Author: RT Freddy(R) Service: Nuclear Medicine Author [...] RT Freddy(R) August 17, 2022 5:59 PM [facility] 08-17-2022 Note HNO ID: [id number] Author: El Hardy APRN.CNP Service: ? Author [...] SURGICAL HISTORY OF bile duct surg @ [facility] PAST SURGICAL HISTORY OF 03/2015 had vein [...] Tape (Rosins), Estradiol, Fleet Phospho-Soda Accu-Prep [Sodium Umuyzeomyi-Mltmfk-Vae], Hydroxyzine, Novocain [Procaine Hcl], Nsaids (Non-Steroidal Anti-Inflammatory [...] (FLONASE) 50 mcg/actuation nasal spray Use 1 Curran in each nostril once daily. (Patient not taking: Reported on 07/01/2017 ) calcium carbonate 600 mg-cholecalciferol 400 units (CALCIUM 600 + D) 600 mg(1,500mg) -400 unit tab Take 1 tablet (more content not included)... [facility] 08-17-2022 History of Presen t illness Narrative [...] SURGICAL HISTORY OF bile duct surg @ [facility] PAST SURGICAL HISTORY OF 03/2015 had vein [...] Tape (Rosins), Estradiol, Fleet Phospho-Soda Accu-Prep [Sodium Vfpsdufhal-Xlsstx-Ges], Hydroxyzine, Novocain [Procaine Hcl], Nsaids (Non-Steroidal Anti-Inflammatory [...] (FLONASE) 50 mcg/actuation nasal spray Use 1 Curran in each nostril once daily. (Patient not [...] of care. This note was generated using Absio software. It may contain errors in wording, punctuation, or spelling. El Hardy APRN.DEBORA documented in this encounter [facility] 07-16-2020 History of Presen t illness Narrative CVI HISTORY 1. Have you ever had vein stripping surgery? (If yes, when and which leg?) Yes Dr. Howell at [facility] 2. Have you ever had vein [...] you diagnosed with saphenous vein reflux? No [facility] CONSULT NOTE 07/16/2020 Chief Complaint Patient presents with Referral Ernie referral, VV, pain Assessment and Plan: 1. Varicose veins of lower extremity with inflammation, bilateral 1. Suspect at least mild underlying venous hypertension. 2. Obtain VIS. 3. Recommend compression stockings 20-30mmHg. 4. Conservative management. 5. Exercise and leg elevation. 6. Consider endovenous therapy if indicated. Orders Placed This [facility]: Patient is a 84 y.o. female who presents today for initial evaluation of varicose veins. Presents today with complaints of varicose veins. Reports that she had stripping done many years ago at [facility]. Reports that he didn't finish the [...] provider on file. documented in this encounter [facility] 07-16-2020 Miscellaneous Notes Encounter addended by: Kathie Johansen RN on: 07/16/2020 3:11 PM Actions taken: Edited Discharge Instructions documented in this encounter [facility] 07-16-2020 Hospital Discharg e instructions Kathie Johansen RN - 07/16/2020 Do not wear compression the day of your venous scan. We will call you with results. documented in this encounter [facility] documented as of this encounter (statuses as of 08/18/2022) [facility]09[facility]2011 History of Past illness Narrative* Problem Noted Date Resolved Date NO SHOW 11/25/2010 09/07/2013 Abdominal pain, right lower quadrant 09/11/2008 08/24/2011 DIVERTICULITIS COLON - NO HEMORRHAGE 07/29/2008 09/21/2013 Diverticulosis of colon (without mention of hemo rrhage) 09/21/2013 Overview: Acute Episode Diverticulitis - 07/15/08 documented as of this encounter (statuses as of 08/19/2022) [facility] History of Past illness Narrative* Problem Noted Date Resolved Date NO SHOW 11/25/2010 09/07/2013 Abdominal pain, right lower quadrant 09/11/2008 08/24/2011 DIVERTICULITIS COLON - NO HEMORRHAGE 07/29/2008 09/21/2013 Diverticulosis of colon (without mention of hemo rrhage) 09/21/2013 Overview: Acute Episode Diverticulitis - 07/15/08 documented as of this encounter (statuses as of 08/27/2022) [facility] History of Past illness Narrative* Problem Noted Date Resolved Date NO SHOW 11/25/2010 09/07/2013 Abdominal pain, right lower quadrant 09/11/2008 08/24/2011 DIVERTICULITIS COLON - NO HEMORRHAGE 07/29/2008 09/21/2013 Diverticulosis of colon (without mention of hemo rrhage) 09/21/2013 Overview: Acute Episode Diverticulitis - 07/15/08 documented as of this encounter (statuses as of 08/31/2022) [facility] History of Past illness Narrative* Problem Noted Date Diagnosed Date Resolved Date NO SHOW 11/25/2010 09/07/2013 Abdominal pain, right lower quadrant 09/11/2008 08/24/2011 DIVERTICULITIS COLON - NO HEMORRHAGE 07/29/2008 09/21/2013 Diverticulosis of colon (wit hout mention of hemorrhage) 09/21/2013 Overview: Acute Episode Diverticulitis - 07/15/08 documented as of this encounter (statuses as of 11/24/2022) [facility] History of Past illness Narrative* Problem Noted Date Diagnosed Date Resolved Date NO SHOW 11/25/2010 09/07/2013 Abdominal pain, right lower quadrant 09/11/2008 08/24/2011 DIVERTICULITIS COLON - NO HEMORRHAGE 07/29/2008 09/21/2013 Diverticulosis of colon (wit hout mention of hemorrhage) 09/21/2013 Overview: Acute Episode Diverticulitis - 07/15/08 documented as of this encounter (statuses as of 12/25/2022) [facility] History of Past illness Narrative* Problem Noted Date Diagnosed Date Resolved Date NO SHOW 11/25/2010 09/07/2013 Abdominal pain, right lower quadrant 09/11/2008 08/24/2011 DIVERTICULITIS COLON - NO HEMORRHAGE 07/29/2008 09/21/2013 Diverticulosis of colon (wit hout mention of hemorrhage) 09/21/2013 Overview: Acute Episode Diverticulitis - 07/15/08 documented as of this encounter (statuses as of 12/25/2022) [facility] note* Diagnosis Varicose veins of lower extremity with inflammation, bilateral- Primary documented in this encounter [facility] note* Diagnosis Varicose veins of lower extremity with inflammation, bilateral documented in this encounter [facility] note* Diagnosis Foot injury, right, initial encounter- Primary documented in this encounter [facility] note* Diagnosis Acute right ankle pain- Primary Foot injury, right, initial encounter documented in this encounter [facility] note* Diagnosis Contusion of foot, unspecified laterality, initial encounter- Primary Acute right ankle pain Foot injury, right, initial encounter Peripheral vascular disease (HCC) Peripheral vascular disease, unspecified Nutritional marasmus (HCC) Nutritional marasmus documented in this encounter [facility] note* Diagnosis Injury of head, initial encounter- Primary documented in this encounter [facility] note* Diagnosis Laceration of muscle of left hand- Primary documented in this encounter [facility] note* Diagnosis Laceration of left hand without foreign body, subsequent encounter- Primary documented in this encounter [facility] for referral (narrative)* Procedure Authorization (Routine) Status Reason Specialty Diagnoses / Procedures Referred By Contact Referred To Contact Incomplete Heart and Vascul ar Diagnostics Diagnoses Varicose veins of lower extremity with inflammation, bilateral Procedures Venous Insufficiency Study-Bilat Lower Ext Jessica Cano APRN [employer] [address] [place] [address] Electronically signed by Jessica Cano APRN, CNP at [facility] for referral (narrative)* Procedure Authorization (Routine) Status Reason Specialty Diagnoses / Procedures Referred By Contact Referred To Contact Closed Heart and Vascul ar Diagnostics Diagnoses Varicose veins of lower extremity with inflammation, bilateral Procedures Venous Insufficiency Study-Bilat Lower Ext Jessica Cano APRN [employer] [address] [address] Electronically signed by Jessica Cano APRN, CNP at [facility] for referral (narrative)* Diagnostic Procedure Only (Urgent) - Closed Specialty Diagnoses / Procedures Referred By Contac t Referred To Contact XR IMAGING Diagnoses Foot injury, right, initial encounter Procedures XR FOOT GENERAL 3V AP/LAT/OBL RIGHT RADEX FOOT COMPLETE MINIMUM 3 VIEWS El Hardy APRN.AIRPLANE CAPTAIN [address] [place] [address] Xr Imaging Referral ID Status Reason Start Date Expiration Date V isits Requested Visits Authorized [id number] Closed Auto-Generate d Referral 08/17/2022 09/16/2023 1 1 [facility] for visit Narrative* Procedure Authorization (Routine) Status Reason Specialty Diagnoses / Procedures Referred By Contact Referred To Contact Closed Heart and Vascul ar Diagnostics Diagnoses Varicose veins of lower extremity with inflammation, bilateral Procedures Venous Insufficiency Study-Bilat Lower Ext Jessica Cano APRN [employer]PL[employer] [address] 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 Expl anation Advance Directives and Living Will Power of Bar Useful Or Busser Reason for Referral Specialty Diagnoses / Procedures Referred By Contac t Referred To Contact Podiatry Diagnoses Acute right ankle pain Foot injury, right, initial encounter Procedures CONSULT TO PODIATRY OFFICE/OUTPATIENT [facility] 60-74 MINUTES El Hardy APRN.AIR[employer]TAIN [address] [place] [address] Referral ID Status Reason Start Date Expiration Date Visits Requested Visits Authorized [id number] Pending Review PCP Requested Referral 08/26/2022 08/26/2023 1 1 Specialty Diagnoses / Procedures Referred By Contac t Referred To Contact XR IMAGING Diagnoses Acute right ankle pain Foot injury, right, initial encounter Procedures XR FOOT GENERAL 3V AP/LAT/OBL RIGHT RADEX FOOT COMPLETE MINIMUM 3 VIEWS El Hardy, SURVEY SUPERVISOR.AIRPLANE CAPTAIN [address] [place] [address] Xr Imaging Referral ID Status Reason Start Date Expiration Date V isits Requested Visits Authorized [id number] Closed Auto-Generate d Referral 08/26/2022 09/25/2023 1 1 Specialty Diagnoses / Procedures Referred By Contac t Referred To Contact XR IMAGING Diagnoses Acute right ankle pain Procedures XR ANKLE GENERAL 3V AP/LAT/OBL RIGHT RADEX ANKLE COMPLETE MINIMUM 3 VIEWS El Hardy, SURVEY SUPERVISOR.AIRPLANE CAPTAIN [address] [place] [address] Xr Imaging Referral ID Status Reason Start Date Expiration Date V isits Requested Visits Authorized [id number] Closed Auto-Generate d Referral 08/26/2022 09/25/2023 1 1 Additional Source Comments INFORMATION SOURCE (unrecogn ized section and content) DATE CREATED AUTHOR AUTHOR'S ORGANIZ ATION 09/06/2017 [facility] DATE CREATED AUTHOR AUTHOR'S ORGANIZ ATION 09/07/2017 [facility] DATE CREATED AUTHOR AUTHOR'S ORGANIZ ATION 05/10/2020 [facility] DATE CREATED AUTHOR AUTHOR'S ORGANIZ ATION 05/25/2020 [facility] DATE CREATED AUTHOR AUTHOR'S ORGANIZ ATION 12/26/2022 [facility] Reason for Visit (unrecogniz ed section and content) Status Reason Specialty Diagnoses / Procedures Referred By Contact Referred To Contact Closed Heart and Vascul ar Diagnostics Diagnoses Asymptomatic varicose veins of bilateral lower extremities Tierra Patel MD [address] [place] [address] [facility] [address] [facility] [address] [place] [address] Reason Comments Pain (foot) right foot bruised [...] initial encounter Procedures CONSULT TO PODIATRY OFFICE/OUTPATIENT [facility] 60-74 MINUTES El Hardy APRN.DEBORA [address] [place] [address] Referral ID Status Reason Start Date Expiration Date Visits Requested Visits Authorized [id number] Pending Review PCP Requested Referral 08/26/2022 08/26/2023 [...] or prosecute any alcohol or drug abuse patient.[facility] the event this information is protected by the Federal Confidentiality of Alcohol and Drug Abuse Patient Records regulations: The Federal rules restrict any use of the information to criminally investigate or prosecute any alcohol or drug abuse patient.[facility] the event this information is protected by the Federal Confidentiality of Alcohol and Drug Abuse Patient Records regulations: The Federal rules restrict any use of the information to criminally investigate or prosecute any alcohol or drug abuse patient.[facility] the event this information is protected by the Federal Confidentiality of Alcohol and Drug Abuse Patient Records regulations: The Federal rules restrict any use of the information to criminally investigate or prosecute any alcohol or drug abuse patient.[facility] the event this information is protected by the Federal Confidentiality of Alcohol and Drug Abuse Patient Records regulations: The Federal rules restrict any use of the information to criminally investigate or prosecute any alcohol or drug abuse patient.[facility] the event this information is protected by the Federal Confidentiality of Alcohol and Drug Abuse Patient Records regulations: The Federal rules restrict any use of the information to criminally investigate or prosecute any alcohol or drug abuse patient.[facility] Hospital[facility] the event this information is protected by the Federal Confidentiality of Alcohol and Drug Abuse Patient Records regulations: The Federal rules restrict any use of the information to criminally investigate or prosecute any alcohol or drug abuse patient.[facility] Care Teams (unrecognized sec tion and content) Ambulance Paramedic Relationship Specialty Start Date End Date Tierra Patel MD PCP - General Internal Medicine 02/14/17 Ambulance Paramedic Relationship Specialty Start Date End Date Tierra Patel MD PCP - General Internal Medicine 02/14/17 Ambulance Paramedic Relationship Specialty Start Date End Date Tierra Patel MD PCP - General Internal [facility] 02/14/17 Ambulance Paramedic Relationship Specialty Start Date End Date Tierra Patel MD PCP - General Internal Medicine 02/14/17 Ambulance Paramedic Relationship Specialty Start Date End Date Tierra Patel MD PCP - General Internal Medicine 02/14/17 Ambulance Paramedic Relationship Specialty Start Date End Date Tierra [...] BE BASED ON THE PRIMARY CLINICAL RECORDS. [facility]. provides no warranty or guarantee of the accuracy or completeness of information in this document.
[2023-04-29 19:21] LABS: Absolute Lymphocyte Count 1.13 X10^3/uL (0.83-4.51); Absolute Neutrophil Count 5.6 X10^3/uL (2.0-7.7); Basophil# 0.04 X10^3/uL; Basophil% 0.5 % (0-1); Hematocrit 31.2 % (37-47); Hemoglobin 9.8 g/dL (12.0-15.0); Lymphocyte # 1.13 X10^3/ul (0.83-4.51); Lymphocyte % 15.1 % (19-41); Mean Corp Hgb Conc 31.4 g/dL (32-36); Mean Corpuscular Hgb 28.8 pg (27.0-32.0); Mean Corpuscular Volume 91.8 fL (81-99); Mean Platelet Vol. 9.2 fl (6.2-12.0); Monocyte# 0.61 X10^3/uL; Monocyte% 8.1 % (0-10); NRBC Flagged by Analyzer 0 % (0-5); Neutrophil # 5.64 X10^3/uL (2.7-7.7); Neutrophil % 75.4 % (47-70); Platelet Count 296 K/mm3 (150-450); RBC Distribution Width CV 13.7 % (11.6-14.6); RBC Distribution Width SD 46.4 fl (35.1-43.9); White Blood Count 7.5 K/mm3 (4.4-11.0)
[2023-04-29] MEDS: Aspirin 81 MG TAB.CHEW 324 MG PO (19:27)
--- NOTE | 2023-04-29 19:38 | RAD_ITS ---
STUDY: X-RAY CHEST REASON FOR EXAM: Female, 87 years old. chest pain TECHNIQUE: Single AP portable view of the chest. COMPARISON: 03/11/2023 FINDINGS: The lungs are clear and expanded. There is no demonstrated pleural abnormality. Normal size heart. Normal mediastinum and marvin. Normal visualized pulmonary arteries. Normal visualized aortic arch and descending thoracic aorta. Normal visualized thoracic spine. Normal visualized ribs, clavicles, and shoulders. There is no demonstrated abnormality of the visualized soft tissue structures of the upper abdomen. RAD/Chest 1 View (Portable) IMPRESSION: Normal x-ray examination of the chest. Electronically Signed: Simon Pearson MD at 20:04 EST ,
[2023-04-29 19:41] LABS: Anion Gap 5 (5-15); BUN 20 mg/dL (7-18); BUN/Creat Ratio 32.4 RATIO (10-20); Calcium,Total 9.1 mg/dL (8.5-10.1); Chloride 112 mmol/L (98-107); Creatinine, Serum 0.62 mg/dL (0.55-1.02); EST Glomerular Filtration Rate 98 mL/min (>60); Est Glom Filt Rate - Afr Amer 118 mL/min (>60); Glucose 145 mg/dL (74-106); Potassium 3.5 mmol/L (3.5-5.1); Sodium Level 143 mmol/L (136-145); Troponin-I HS (w/2H Reflex) 9 pg/mL (3.0-54.0)
[2023-04-29 21:18] LABS: Reflex Troponin-HS? (from REC) Y
[2023-04-29 22:04] LABS: Troponin-I HS 10 pg/mL (3.0-54.0)
== END 2023-04-29 23:34 | disposition home or self-care (01) ==
PROVIDERS: Emergency Provider Emergency Medicine; PCP Internal Medicine; Visit Provider Emergency Medicine
DX: R07.9 Chest pain, unspecified (principal); Z79.82 Long term (current) use of aspirin; F41.8 Other specified anxiety disorders; Z79.899 Other long term (current) drug therapy; Z90.49 Acquired absence of other specified parts of digestive tract; Z90.710 Acquired absence of both cervix and uterus; Z96.641 Presence of right artificial hip joint; F17.210 Nicotine dependence, cigarettes, uncomplicated
CPT/HCPCS: 71045; 80048; 84484; 85025; 93005; 99284; A4216

== ENCOUNTER 2023-06-11 22:16 | Emergency (ER) | payer MEDICARE, SELFPAY ==
[2023-06-11 22:17] VITALS: BP 125/78; PULSE 82; RESP 15; TEMP 36.6; O2SAT 94
[2023-06-11 22:35] VITALS: BMI 18.8
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
[2023-06-11 23:27] VITALS: BP 125/78; PULSE 82; RESP 15; TEMP 36.6; O2SAT 94
== END 2023-06-11 23:28 | disposition home or self-care (01) ==
PROVIDERS: Emergency Provider Emergency Medicine; PCP Internal Medicine; Visit Provider Emergency Medicine
DX: R04.0 Epistaxis (principal); F03.90 Unspecified dementia, unspecified severity, without behavioral disturbance, psychotic disturbance, mood disturbance, and anxiety; Z87.891 Personal history of nicotine dependence; Z86.73 Personal history of transient ischemic attack (TIA), and cerebral infarction without residual deficits; R23.3 Spontaneous ecchymoses; Z86.718 Personal history of other venous thrombosis and embolism; K21.9 Gastro-esophageal reflux disease without esophagitis; Z79.82 Long term (current) use of aspirin
CPT/HCPCS: 99282

== ENCOUNTER 2023-07-06 07:23 | Emergency (ER) | payer MEDICARE, SELFPAY ==
[2023-07-06 07:23] VITALS: BP 149/73; PULSE 68; PULSE 70; RESP 15; RESP 16; TEMP 36.6; O2SAT 97; O2SAT 98; BMI 18.5
--- NOTE | 2023-07-06 07:35 | EKG12_ITS ---
Test Reason : HEADACHE Blood Pressure : / mmHG Vent. Rate : 065 BPM Atrial Rate : 065 BPM P-R Int : 174 ms QRS Dur : 150 ms QT Int : 436 ms P-R-T Axes : 073 -41 028 degrees QTc Int : 453 ms Normal sinus rhythm Left axis deviation Right bundle branch block Minimal voltage criteria for LVH, may be normal variant ( R in aVL ) Abnormal ECG Confirmed by EYAD MARTINEZ, BUCKY ([id number]), film editor CORNELIO BRYSON ([id number]) on 07/11/2023 1:44:20 PM Referred By: Confirmed By:CLARE CASTANO MD
--- NOTE | 2023-07-06 07:35 | CT_ITS ---
STUDY: CTA HEAD AND NECK WITH CONTRAST REASON FOR EXAM: Female, 87 years old. Neuro deficit, acute, stroke suspected RADIATION DOSAGE (If Supplied By Facility): CTDIvol = ( 27.88 ) mGy, DLP = ( 1303.98 ) mGycm TECHNIQUE: CT angiography was performed with a multi-detector CT scanner. Data acquisition was obtained from the skull base through the vertex following intravenous administration of IV 100mL [id number]-[id number]. MIP images were reconstructed from the axial data set. Post-processing of the angiographic images was performed, with multiplanar reformation and 3D reconstruction. Individualized dose optimization techniques were used for this CT. COMPARISON: Comparison is made with prior study dated March 11, 2023. FINDINGS: Normal bilateral petrous carotid arteries. There is calcified plaque formation of the right cavernous carotid artery, without a cross-sectional luminal stenosis. Normal left cavernous carotid artery with a normal supraclinoid bifurcation. Normal right A1 segments of the anterior cerebral artery. Normal left A1 segments of the anterior cerebral artery. Normal intact anterior communicating artery (ACOM). Normal bilateral A2 segments of the anterior cerebral arteries. Normal right M1 and M2 segments of the middle cerebral arteries, with a normal M1 bifurcation. Normal left M1 and M2 segments of the middle cerebral arteries, with a normal M1 bifurcation. Normal right posterior communicating artery (PCOM). Normal left posterior communicating artery (PCOM). Normal bilateral vertebral arteries. Normal basilar artery with a normal basilar bifurcation. The visualized bilateral superior cerebellar (SCA) arteries are normal. Normal bilateral P1, P2 and visualized P3 segments of the posterior cerebral arteries. There is no demonstrated aneurysm of the [place]. Mild degree of cerebral atrophy and decreased attenuation in the periventricular distribution suggestive of a ischemic changes. AORTIC ARCH: There is atherosclerotic calcific plaque formation of the aortic arch and great vessels arising from the aortic arch, without a hemodynamically significant stenosis. There is a normal origin of the brachiocephalic, left common carotid, and left subclavian arteries. Calcific plaque is seen at the origin of the left subclavian artery. RIGHT CAROTID ARTERIES: Normal right common carotid artery (CCA). Normal right common carotid bulb. There is mild atherosclerotic plaque formation of the origin of the right internal carotid artery with less than 50% cross sectional diameter stenosis. Normal visualized cervical portion of the right internal carotid artery. Normal origin of the right external carotid artery (ECA). LEFT CAROTID ARTERIES: Normal left common carotid artery (CCA). Normal left common carotid bulb. There is mild atherosclerotic plaque formation of the origin of the left internal carotid artery with less than 50% cross sectional diameter stenosis. Normal visualized cervical portion of the left internal carotid artery. Normal origin of the left external carotid artery (ECA). VERTEBRAL ARTERIES: Normal bilateral vertebral arteries. CT/CTA Head AND Neck W/ Contrast IMPRESSION: Minimal calcific plaques seen at the origin of the internal carotid origins bilaterally. Electronically Signed: Asher Meng MD at 9:40 EDT ,
[2023-07-06 07:44] VITALS: BP 138/73; PULSE 64; RESP 15; TEMP 36.6; O2SAT 98
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
[2023-07-06 07:51] LABS: Absolute Lymphocyte Count 2.31 X10^3/uL (0.83-4.51); Absolute Neutrophil Count 3.4 X10^3/uL (2.0-7.7); Basophil# 0.06 X10^3/uL; Basophil% 0.9 % (0-1); Eosinophil# 0.16 X10^3/uL; Eosinophils% 2.3 % (0-5); Hematocrit 35.1 % (37-47); Hemoglobin 11.1 g/dL (12.0-15.0); Lymphocyte # 2.31 X10^3/ul (0.83-4.51); Lymphocyte % 33.1 % (19-41); Mean Corp Hgb Conc 31.6 g/dL (32-36); Mean Corpuscular Hgb 29.3 pg (27.0-32.0); Mean Corpuscular Volume 92.6 fL (81-99); Mean Platelet Vol. 9.6 fl (6.2-12.0); Monocyte# 1.05 X10^3/uL; Monocyte% 15.1 % (0-10); NRBC Flagged by Analyzer 0 % (0-5); Neutrophil # 3.36 X10^3/uL (2.7-7.7); Neutrophil % 48.2 % (47-70); Platelet Count 290 K/mm3 (150-450); RBC Distribution Width CV 13.1 % (11.6-14.6); RBC Distribution Width SD 44.6 fl (35.1-43.9); Red Blood Count 3.79 M/mm3 (4.2-5.4)
[2023-07-06 08:05] VITALS: BP 151/72; PULSE 76; RESP 18; TEMP 36.6; O2SAT 97
[2023-07-06 08:09] LABS: AST(SGOT) 59 U/L (15-37); Alanine Aminotransfer ALT/SGPT 46 U/L (13-56); Albumin, Serum 3.4 g/dL (3.2-5.0); Alkaline Phosphatase 82 U/L (45-117); Anion Gap 2 (5-15); BUN 17 mg/dL (7-18); BUN/Creat Ratio 23.2 RATIO (10-20); Bilirubin, Direct 0.14 mg/dL (0.00-0.30); Chloride 108 mmol/L (98-107); Creatinine, Serum 0.73 mg/dL (0.55-1.02); EST Glomerular Filtration Rate 80 mL/min (>60); Est Glom Filt Rate - Afr Amer 97 mL/min (>60); Estimated Creatinine Clearance 38.47 ml/min; Globulin 3.2 g/dL (2.2-4.2); Glucose 121 mg/dL (74-106); Potassium 3.8 mmol/L (3.5-5.1); Protein, Total 6.6 g/dL (6.4-8.2); Sodium Level 138 mmol/L (136-145); Troponin-I HS 12 pg/mL (3.0-54.0)
--- NOTE | 2023-07-06 08:25 | RAD_ITS ---
STUDY: X-RAY CHEST REASON FOR EXAM: Female, 87 years old. Neuro deficit, acute, stroke suspected TECHNIQUE: Single AP portable view of the chest. COMPARISON: Comparison is made with prior study April 29, 2023. FINDINGS: Hyperinflation. Stable scarring in the medial aspect of the right upper lobe. There is no demonstrated pleural abnormality. There is borderline cardiomegaly. Normal mediastinum and marvin. Normal visualized pulmonary arteries. There is atherosclerotic calcification of the aortic arch with tortuosity. There are diffuse degenerative changes of the visualized thoracic spine. Normal visualized ribs, clavicles, and shoulders. There is no demonstrated abnormality of the visualized soft tissue structures of the upper abdomen. RAD/Chest 1 View IMPRESSION: Hyperinflation. No acute abnormality is seen. Electronically Signed: Asher Meng MD at 8:36 EDT ,
[2023-07-06 08:32] LABS: Partial Thromboplast Time 29.4 Seconds (24.1-36.2)
[2023-07-06 08:39] LABS: Prothrombin Time (Protime)PT. 13.4 SECONDS (11.7-14.9)
[2023-07-06 09:23] VITALS: BP 134/67; PULSE 76; RESP 15; TEMP 36.7; O2SAT 98
[2023-07-06 10:18] LABS: Bacteria 0 SEEN /hpf (None Seen); Color, Urine Yellow (Yellow); Glucose, Dipstick Normal (Normal); Ketone-Dipstick Negative (Negative); Leukocyte Esterase-Dipstick Negative /ul (Negative); Mucous, Urine 0 SEEN /hpf (<or=2+); Nitrite-Dipstick Negative (Negative); Occult Blood-Urine 10 /ul (Negative); Protein-Dipstick 15 mg/dl (Negative); Red Blood Cells-Urine 0 SEEN /hpf (0-5); Squamous Epithelial Cells - UA 0 SEEN /hpf (5-10); Urine Bilirubin Dipstick Negative (Negative); Urine Clarity Clear (Clear); Urine Urobilinogen Normal (Normal); White Blood Cells 0 SEEN /hpf (0-5)
[2023-07-06 11:15] VITALS: BP 111/81; PULSE 68; RESP 20; TEMP 36.3; O2SAT 98
[2023-07-07 12:02] LABS: Bedside Glucose 147 mg/dL (74-106)
== END 2023-07-06 12:27 | disposition home or self-care (01) ==
PROVIDERS: Emergency Provider Emergency Medicine; PCP Internal Medicine; Visit Provider Emergency Medicine
DX: R27.0 Ataxia, unspecified (principal); F03.90 Unspecified dementia, unspecified severity, without behavioral disturbance, psychotic disturbance, mood disturbance, and anxiety; I65.23 Occlusion and stenosis of bilateral carotid arteries; R51.9 Headache, unspecified; Z87.891 Personal history of nicotine dependence; M54.2 Cervicalgia; K21.9 Gastro-esophageal reflux disease without esophagitis; Z79.82 Long term (current) use of aspirin; Z86.73 Personal history of transient ischemic attack (TIA), and cerebral infarction without residual deficits; Z86.718 Personal history of other venous thrombosis and embolism; Z79.899 Other long term (current) drug therapy
CPT/HCPCS: 99284; 70496; 70498; 71045; 80048; 80076; 81001; 82962; 84484; 85025; 85610; 85730; 93005; Q9967; A4216

== ENCOUNTER 2023-07-07 06:19 | Observation (INO) | payer MEDICARE, SELFPAY ==
[2023-07-07] VITALS (11 sets, daily range): BP systolic 88–143; BP diastolic 60–91; PULSE 63–81; RESP 14–18; TEMP 36.3–36.7; O2SAT 93–98; BMI 18.8; BMI 17.6
--- NOTE | 2023-07-07 06:58 | CT_ITS ---
STUDY: CT BRAIN WITHOUT CONTRAST REASON FOR EXAM: Female, 87 years old. Syncope RADIATION DOSAGE (If Supplied By Facility): CTDIvol = ( 44.99 ) mGy, DLP = ( 779.24 ) mGycm TECHNIQUE: Transaxial CT imaging of the brain was performed without administration of intravenous contrast material. Individualized dose optimization techniques were used for this CT. COMPARISON: Comparison is made with prior study dated March 11, 2023. FINDINGS: Normal soft tissue structures. Normal calvarium. There is mild cerebral atrophy with widening of the extra-axial spaces and ventricular dilatation. There are areas of decreased attenuation within the white matter tracts of the supratentorial brain, consistent with microvascular disease changes. Normal basal ganglia and thalami. Normal brainstem. Normal cerebellum. There is no intracranial hemorrhage. There are no findings of an acute ischemic infarction. Normal visualized paranasal sinuses. CT/Brain/Head without Contrast IMPRESSION: Chronic involutional changes of the brain. Electronically Signed: Asher Meng MD at 8:34 EDT ,
--- NOTE | 2023-07-07 06:58 | EKG12_ITS ---
Test Reason : SYNCOPE Blood Pressure : / mmHG Vent. Rate : 062 BPM Atrial Rate : 062 BPM P-R Int : 160 ms QRS Dur : 142 ms QT Int : 438 ms P-R-T Axes : 068 -43 -16 degrees QTc Int : 444 ms Normal sinus rhythm Left axis deviation Right bundle branch block Minimal voltage criteria for LVH, may be normal variant ( R in aVL ) Abnormal ECG Confirmed by EYAD MARTINEZ, BUCKY ([id number]), deputy editor in chief TONIA TANNER ([id number]) on 07/11/2023 10:21:29 AM Referred By: Confirmed By:CLARE CASTANO MD
--- NOTE | 2023-07-07 06:58 | CT_ITS ---
STUDY: CT CERVICAL SPINE WITHOUT CONTRAST REASON FOR EXAM: Female, 87 years old. Injury RADIATION DOSAGE (If Supplied By Facility): CTDIvol = ( 11.87 ) mGy, DLP = ( 255.73 ) mGycm TECHNIQUE: High resolution transaxial imaging was performed without contrast material. Sagittal and coronal images were reconstructed. Individualized dose optimization techniques were used for this CT. COMPARISON: Comparison is made with prior study dated November 23, 2022. FINDINGS: Normal craniovertebral junction. There are degenerative changes of the anterior atlantoaxial articulation. Normal odontoid process. Normal cervical lordosis. C2-3: Minimal anterior listhesis of C2 on C3 secondary to facet joint osteoarthritis and hypertrophy worse on the left side. Uncovertebral arthrosis. Mild degree of left neural foraminal stenosis. C3-4: Marked degree of disc space narrowing. Uncovertebral arthrosis. Bilateral neural foraminal stenosis. C4-5: Marked degree of disc space narrowing. Spondylosis. Uncovertebral arthrosis. Mild bilateral neural foraminal stenosis. C5-6: Marked degree of disc space narrowing. Uncovertebral arthrosis. Bilateral neural foraminal stenosis worse on the right side. C6-7: Marked degree of disc space narrowing. Uncovertebral arthrosis. C7-T1: Normal endplates. Normal disc height and morphology. Normal central canal and intervertebral neuroforamina. Stable scarring within bronchograms in the right lung apex. CT/Spine Cervical without Contras IMPRESSION: Multilevel degenerative changes, as described above. Electronically Signed: Asher Meng MD at 8:37 EDT ,
[2023-07-07 07:21] LABS: Absolute Lymphocyte Count 2.95 X10^3/uL (0.83-4.51); Basophil# 0.07 X10^3/uL; Basophil% 0.9 % (0-1); Eosinophil# 0.15 X10^3/uL; Eosinophils% 1.9 % (0-5); Hematocrit 35.6 % (37-47); Hemoglobin 11.3 g/dL (12.0-15.0); Lymphocyte # 2.95 X10^3/ul (0.83-4.51); Lymphocyte % 36.6 % (19-41); Mean Corp Hgb Conc 31.7 g/dL (32-36); Mean Corpuscular Volume 91.3 fL (81-99); Mean Platelet Vol. 9.7 fl (6.2-12.0); Monocyte# 0.87 X10^3/uL; Monocyte% 10.8 % (0-10); NRBC Flagged by Analyzer 0 % (0-5); Neutrophil % 49.6 % (47-70); Platelet Count 322 K/mm3 (150-450); RBC Distribution Width CV 13.2 % (11.6-14.6); RBC Distribution Width SD 43.3 fl (35.1-43.9); White Blood Count 8.1 K/mm3 (4.4-11.0)
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
[2023-07-07 07:27] LABS: Anion Gap 7 (5-15); BUN 13 mg/dL (7-18); BUN/Creat Ratio 19.7 RATIO (10-20); Calcium,Total 8.8 mg/dL (8.5-10.1); Chloride 107 mmol/L (98-107); Creatinine, Serum 0.66 mg/dL (0.55-1.02); EST Glomerular Filtration Rate 90 mL/min (>60); Est Glom Filt Rate - Afr Amer 109 mL/min (>60); Estimated Creatinine Clearance 38.07 ml/min; Glucose 120 mg/dL (74-106); Potassium 3.5 mmol/L (3.5-5.1); Sodium Level 143 mmol/L (136-145); Troponin-I HS 8 pg/mL (3.0-54.0)
[2023-07-07 07:30] LABS: Mucous, Urine 0 SEEN /hpf (<or=2+); Red Blood Cells-Urine 0 SEEN /hpf (0-5); White Blood Cells 0 SEEN /hpf (0-5)
--- NOTE | 2023-07-07 07:30 | RAD_ITS ---
STUDY: X-RAY CHEST REASON FOR EXAM: Female, 87 years old. Syncope TECHNIQUE: Single AP portable view of the chest. COMPARISON: Comparison is made with prior study dated July 06, 2023. FINDINGS: EKG electrodes are seen. Hyperinflation. Stable scarring in the medial aspect of the right upper lobe. There is no demonstrated pleural abnormality. Normal size heart. Normal mediastinum and marvin. Normal visualized pulmonary arteries. There is atherosclerotic calcification of the aortic arch with tortuosity. There are degenerative changes of the visualized thoracic spine. Normal visualized ribs, clavicles, and shoulders. Surgical clips are seen in the epigastric region. RAD/Chest 1 View (Portable) IMPRESSION: Hyperinflation. No acute abnormality is seen. Electronically Signed: Asher Meng MD at 8:23 EDT ,
[2023-07-07] MEDS: 0.9% Normal Saline (500mL Bag) 500 ML 999 ML IV (07:44)
[2023-07-07 07:51] LABS: Color, Urine Yellow (Yellow); Glucose, Dipstick Normal (Normal); Ketone-Dipstick Negative (Negative); Leukocyte Esterase-Dipstick Negative /ul (Negative); Nitrite-Dipstick Negative (Negative); Occult Blood-Urine 10 /ul (Negative); Protein-Dipstick 30 mg/dl (Negative); Specific Gravity, Urine 1.025 (1.002-1.030); Urine Bilirubin Dipstick Negative (Negative); Urine Clarity Sl. Cloudy (Clear); Urine Urobilinogen Normal (Normal)
[2023-07-07 08:10] LABS: Bacteria RARE /hpf (None Seen); Squamous Epithelial Cells - UA 0-5 SEEN /hpf (5-10)
--- NOTE | 2023-07-07 08:45 | NURSING ---
DR IKE MARTINEZ
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
--- NOTE | 2023-07-07 09:06 | NURSING ---
PCU OBS IKE SYNCOPE
[2023-07-07 09:28] LABS: Troponin-I HS 10 pg/mL (3.0-54.0)
[2023-07-07] MEDS: 0.9% Saline Lock 10 ML Syringe IV (13:05)
[2023-07-07] MEDS: Lactated Ringers 1,000 ML 100 ML IV (14:30)
[2023-07-07] MEDS: Enoxaparin 40 MG/0.4 ML Syringe SC (14:31)
[2023-07-07 14:32] LABS: Magnesium 1.9 mg/dL (1.6-2.6); Phosphorus 3.1 mg/dL (2.5-4.9)
--- NOTE | 2023-07-07 16:06 | CHAPLAIN ---
Type of Pastoral Visit _x__ Initial Visit ___ Follow-up Visit ___ On-call Visit ___ General Patient Visit ___ Spiritual Assessment ___ Family Conference ___ Bereavement ___ Rapid Response ___ Code Blue ___ Other (describe below) Pastoral Care Referral From ___ Patient _x__ Family ___ Nurse ___ Physician ___ Food Technician ___ Paleobotanist ___ Other (describe below) Sacrament/Intervention _x__ Active listening ___ Anointing ___ Uatsdin ___ Bereavement ___ Communion ___ Yojaan exploration ___ _x__ Life review _x__ Prayer ___ Reconciliation ___ Sacrament of Sick _x__ Supportive presence ___ Wedding ___ Other (describe below) Pastoral Comments met with son of patient in the hallway as pt was being attended to by TOURIST GUIDE team; son says his mother is having dementia, seeing her relatives, and has passed out and fallen; sat at bedside with the patient; she talks loudly and with exclamation about her own care and getting home; family members tell her about her needing fluids and rest; pt states that she just needs to drink a Pepsi; pt talks about her dog at home; time to listen, to encourage patient to rest and receive her IV's, and to let medical team help her; pt is offered a prayer and she accepts, acknowledging her belief that God is with her and she asks him to always be with her; pt states that she is going to live to be 89!
[2023-07-07] MEDS: Ensure Plus High Protein 120 ML LIQUID PO ×2 (17:00→21:16)
[2023-07-08] MEDS: Lactated Ringers 1,000 ML 100 ML IV (00:35)
[2023-07-08 04:15] VITALS: BP 142/73; PULSE 65; RESP 18; TEMP 36.6; O2SAT 94
[2023-07-08 04:50] LABS: Absolute Lymphocyte Count 2.09 X10^3/uL (0.83-4.51); Absolute Neutrophil Count 4.3 X10^3/uL (2.0-7.7); Basophil# 0.04 X10^3/uL; Basophil% 0.5 % (0-1); Eosinophil# 0.13 X10^3/uL; Eosinophils% 1.7 % (0-5); Hematocrit 30.4 % (37-47); Hemoglobin 9.9 g/dL (12.0-15.0); Lymphocyte # 2.09 X10^3/ul (0.83-4.51); Lymphocyte % 27.7 % (19-41); Mean Corp Hgb Conc 32.6 g/dL (32-36); Mean Corpuscular Hgb 29.6 pg (27.0-32.0); Mean Corpuscular Volume 90.7 fL (81-99); Mean Platelet Vol. 9.5 fl (6.2-12.0); Monocyte# 0.99 X10^3/uL; Monocyte% 13.1 % (0-10); NRBC Flagged by Analyzer 0 % (0-5); Neutrophil # 4.28 X10^3/uL (2.7-7.7); Neutrophil % 56.9 % (47-70); Platelet Count 279 K/mm3 (150-450); RBC Distribution Width CV 13.2 % (11.6-14.6); RBC Distribution Width SD 43.3 fl (35.1-43.9); Red Blood Count 3.35 M/mm3 (4.2-5.4); White Blood Count 7.5 K/mm3 (4.4-11.0)
[2023-07-08 05:34] LABS: Anion Gap 4 (5-15); BUN 15 mg/dL (7-18); BUN/Creat Ratio 22.9 RATIO (10-20); Calcium,Total 8.7 mg/dL (8.5-10.1); Chloride 110 mmol/L (98-107); Cholesterol 90 mg/dL (200); Creatinine, Serum 0.66 mg/dL (0.55-1.02); EST Glomerular Filtration Rate 91 mL/min (>60); Est Glom Filt Rate - Afr Amer 110 mL/min (>60); Estimated Creatinine Clearance 35.55 ml/min; Glucose 90 mg/dL (74-106); High Density Lipoprotein 55 mg/dL; Potassium 3.5 mmol/L (3.5-5.1); Sodium Level 140 mmol/L (136-145); Thyroid Stim Hormone (TSH) 3.27 uIU/mL (0.358-3.74); Triglycerides 57 mg/dL; Very Low Density Lipoprotein 11 mg/dL (5-40)
[2023-07-08] MEDS: Acetaminophen 325 MG Tablet 650 MG PO (05:34)
[2023-07-08 06:00] VITALS: BMI 18.8
[2023-07-08 07:37] VITALS: O2SAT 95
--- NOTE | 2023-07-08 08:48 | ECHOL_ITS ---
Reason For Study: Syncope, Hypotension Procedure This was a limited 2D transthoracic echocardiogram. Exam performed portable in patient room. Left Ventricle Normal LV size. The estimated ejection fraction is 65 %. No regional wall motion abnormalities noted. Right Ventricle Normal RV size. Normal systolic function. Atria Normal left atrium. Normal right atrium. Mitral Valve There is no mitral valve stenosis. Tricuspid Valve There is no tricuspid stenosis. Aortic Valve Trisinus/trileaflet aortic valve. There is no aortic stenosis. Great Vessels Normal aortic root. MMode/2D Measurements & Calculations LVIDd: 3.7 cm IVSd: 1.3 cm Ao root diam: 3.2 cm LVIDs: 2.2 cm LVPWd: 1.1 cm RVDd: 3.4 cm FS: 39.8 % LAV(MOD-bp): 27.9 ml LVAd ap4: 19.4 cm2 LVAd ap2: 17.6 cm2 LAV(MOD-bp) Indexed: 19.3 ml/m2 LVLd ap4: 6.7 cm LVLd ap2: 6.7 cm LAV(MOD-sp2): 30.3 ml EDV(MOD-sp4): 47.1 ml EDV(MOD-sp2): 38.5 ml LAV(MOD-sp4): 24.7 ml EDV(sp4-el): 47.5 ml EDV(sp2-el): 39.6 ml LVAs ap4: 9.9 cm2 LVAs ap2: 9.4 cm2 LVLs ap4: 5.6 cm LVLs ap2: 5.8 cm ESV(MOD-sp4): 15.2 ml ESV(MOD-sp2): 13.0 ml ESV(sp4-el): 15.1 ml ESV(sp2-el): 12.9 ml EF(MOD-sp4): 67.8 % EF(MOD-sp2): 66.3 % EF(sp4-el): 68.3 % SV(MOD-sp4): 31.9 ml SV(MOD-sp2): 25.5 ml SV(sp4-el): 32.4 ml LA A4 area: 11.7 cm2 LA dimension(2D): 2.6 cm RA A4 area: 14.0 cm2 ECHO/Echo, Limited Study Interpretation Summary The estimated ejection fraction is 65 %. Ordering Physician: Cain Ramos Referring Physician: Jennifer Klein M.D. Performed By: Laura Mckenzie RDCS
[2023-07-08 09:16] VITALS: BP 149/87; PULSE 60; RESP 18; TEMP 36.3; O2SAT 96
--- NOTE | 2023-07-08 09:16 | EKG12_ITS ---
Test Reason : ISELA Blood Pressure : / mmHG Vent. Rate : 057 BPM Atrial Rate : 057 BPM P-R Int : 130 ms QRS Dur : 128 ms QT Int : 454 ms P-R-T Axes : 054 -40 -17 degrees QTc Int : 441 ms Sinus bradycardia Left axis deviation Right bundle branch block Minimal voltage criteria for LVH, may be normal variant ( R in aVL ) Abnormal ECG When compared with ECG of 07-JUL-2023 07:09, MANUAL COMPARISON REQUIRED, DATA IS UNCONFIRMED Confirmed by SRIRAM MARTINEZ, CHARLEEN ([id number]), editorial director CORNELIO BRYSON ([id number]) on 07/11/2023 2:01:09 PM Referred By: IKE Confirmed By:CHARLEEN BHATIA MD
[2023-07-08] MEDS: Ensure Plus High Protein 120 ML LIQUID PO ×3 (09:25→21:49)
[2023-07-08] MEDS: Potassium Chloride Oral Tablet 20 MEQ 40 MEQ PO (09:28)
[2023-07-08] MEDS: Escitalopram Oxalate 10 MG Tablet PO (09:31)
[2023-07-08] MEDS: Clopidogrel Bisulfate 75 MG Tablet PO (09:31)
[2023-07-08] MEDS: Enoxaparin 40 MG/0.4 ML Syringe SC (09:31)
[2023-07-08] MEDS: Cyanocobalamin 500 MCG Tablet 1000 MCG PO (09:31)
[2023-07-08] MEDS: Multivitamins,Therapeutic Tablet 1 TABLET PO (09:31)
[2023-07-08] MEDS: Aspirin E.C. 81 MG Tablet PO (09:31)
--- NOTE | 2023-07-08 12:25 | PN.HOSP_ITS ---
Reason for Visit Reason for Visit: Diagnoses Syncope and collapse (07/07/23) Objective Data Objective Data Vital Signs: Vital Signs Temp Pulse Resp BP Pulse Ox O2 Del Method 97.3 F L 60 18 149/87 H 96 Room Air 07/08/23 09:16 07/08/23 09:16 07/08/23 09:16 07/08/23 09:16 07/08/23 09:16 07/08/23 09:23 Oxygen Delivery Method Room Air Weight: 102 lb 15.294 oz Body Mass Index (BMI) 18.8 Intake & Output: Intake and Output for Last 24 Hours 07/06/23 07/07/23 07/08/23 23:59 23:59 23:59 Intake Total 1100 / 1100 2296.67 / 2296.67 Balance 1100 / 1100 2296.67 / 2296.67 Medical Nutrition Assessment Dietitian: Malnutrition Criteria Met Start: 07/07/23 15:52 Freq: Status: Active Protocol: Document 07/07/23 15:53 (Rec: 07/07/23 15:53 [id number]) Nutrition Malnutrition Evidence of Malnutrition Exists Yes Malnutrition (severe): Chronic Evidenced By Suboptimal Energy Intake ( Severe),Weight Loss (Severe), Physical Changes (Severe) Clinical Problem Chronic Disease or Condition Related Malnutrition Etiology severe, chronic malnutrition related to inadequate energy intake w/ advanced age, dementia Signs/Symptoms as evidenced by unintentional 7% wt loss x 1 month, estimated PO intake meeting < 75% of estimated energy needs > 3 months, Severe muscle wasting/fat loss evident per physical exam in orbital, clavicle, acromion and temporal areas, BMI 17.7 Status Active Problem Recommendation Dietitian Recommendations/Changes will adjust diet to regular; add 120mL ensure plus high protein 4x/day w/ medpass for additional nutrition if consumed given evidence of malnutrition Lab / Micro Data 07/08/23 04:30 07/08/23 04:30 Labs: Laboratory Results - last 24 hr 07/07/23 14:00: Phosphorus 3.1, Magnesium 1.9 07/08/23 04:30: WBC 7.5, RBC 3.35 L, Hgb 9.9 L, Hct 30.4 L, MCV 90.7, MCH 29.6, MCHC 32.6, RDW Std Deviation 43.3, RDW Coeff of Devyn 13.2, Plt Count 279, MPV 9.5, Immature Gran % (Auto) 0.100, Neut % (Auto) 56.9, Lymph % (Auto) 27.7, Sully % (Auto) 13.1 H, Eos % (Auto) 1.7, Baso % (Auto) 0.5, Absolute Neuts (auto) 4.3, Absolute Lymphs (auto) 2.09, Nucleated RBC % 0, Sodium 140, Potassium 3.5, Chloride 110 H, Carbon Dioxide 26.0, Anion Gap 4 L, BUN 15, Creatinine 0.66, Estim Creat Clear Calc 35.55, Est GFR (MDRD) Af Amer 110, Est GFR (MDRD) Non-Af 91, BUN/Creatinine Ratio 22.9 H, Glucose 90, Calcium 8.7, Triglycerides 57, Cholesterol 90, LDL Cholesterol 24, VLDL Cholesterol 11, HDL Cholesterol 55, TSH 3.27 Micro: Microbiology 07/07/23 07:07 Mucosa - Nose SARS-CoV-2, Influenza & RSV (PCR) - Final Physical Exam Narrative On the hands assembler heart rate during nighttime was in 40s and during daytime in 50s. Multiple sinus pause maximum 1.5 seconds. Missed sinus beat Physical exam General: Alert, Oriented x3, Cooperative HEENT: Atraumatic, PERRLA, EOMI, Normocephalic Oral: Oral mucosa moist. No Gingival or Mucosal Lesions/ Ulcerations Neck: Supple, No JVD, Negative Carotid Bruits Chest wall/Lungs: Air entry diminished in bilateral lung bases. No crepitation/rhonchi Cardiovascular: Sinus bradycardia with sinus pauses, Normal S1, Normal S2, No M/G/R Abdomen: Bowel Sounds Present, Soft, Non Tender, Non-Distended : No dysuria. No renal angle tenderness. No suprapubic tenderness. Extremities: No edema, Capillary Refill Less than 3 Seconds Skin: No rashes, No breakdown Musculoskeletal: Mild muscle tenderness over left upper extremity. Does not feel bony tenderness. ROM maintained. Neurological: Cranial nerves II-XII grossly intact, DTR 2+/4. No acute focal neurological deficit. Muscle strength 4+/5 at knees and hip joints Psych/Mental Status: Flat affect, forgetfulness. Advanced dementia Assessment & Plan Assessment/Plan (1) Syncope: QUALIFIERS: Syncope type: unspecified Qualified Code(s): R55 - Syncope and collapse PLAN: Plan This 87-year-old female with history of dementia was brought to ED by EMS for episode of syncope with fall and then unresponsiveness. Patient did not require CPR. 1. Syncope/unresponsiveness episode with fall, exact cause unclear possible hypotension: Vitals by EMS shows blood pressure 98/62, heart rate 70, RR 16/min patient is being admitted in PCU. Orthostatic vitals did not show significant change in blood pressure or heart rate and does not meet criteria for orthostatic hypotension. Patient had 2D echo done during previous admission in February 2023 showed EF 55 to 60% with normal LV systolic function and size, no RWMA. Stage I diastolic dysfunction. 07/07: Limited echo was done which shows revealed normal LV function. Un responsiveness/syncope thought to be possible due to fall/sinus pause leading to hypotension: Exact etiology unclear. Cardiology consult was done and note reviewed. On telemetry no significant arrhythmia that would make clear indication for pacemaker insertion. Continue telemonitoring and recommended 30- day event monitor at time of discharge. 2. Previous admission related to fatigue malaise and near syncope: Workup was negative for acute stroke and [facility] neurologist recommended aspirin and Plavix for 3 weeks but patient already on aspirin and Plavix therefore continued. Atorvastatin 20 mg daily. TSH free T4 in normal limit. 3. Dementia unclear type with unclear behavior disturbance history: Patient has caregiver as son and home environment. Dementia is advanced. continue patient h ome donepezil regimen, on fall precaution. #4. Chronic normocytic anemia: Admission hemoglobin 11.3, on baseline. Acute on chronic severe anemia: Hemoglobin dropped to 9.9 from baseline between 11-12. IV iron infusion ordered. Iron profile shows low iron, TIBC normal saturation 13.4 ferritin low 21 suggestive of chronic iron-deficiency anemia. Reticulocyte count elevated 1.62. #5. Anxiety and depression: continue patient home low-dose escitalopram regimen. #6. Hyperlipidemia: Continue home dose Lipitor 20 mg daily repeat fasting for tomorrow AM. #7. Presumed pancreatic insufficiency: continue patient home chronic Creon regimen. #8. GERD: Not on PPI at home #9. DVT prophylaxis: Lovenox 40 mg subcu daily Plan of management discussed in detail with patient's daughter near the bedside. Total time of the visit including total time spent in counseling or coordination of care, (more than 50% of the total time, spent in obtaining medical information from nurses and other ancillary care providers,explaining to the patient about labs, imaging, diagnosis and management of active complex medical conditions), review of telemetry strip, EKG and discussion with airport clerk, review of labs and imaging and clinical update given to patient's daughter near the bedside is 40 minutes. Living will/advanced directive/end of life care: Patient does have living will or advanced directive. Patient's son and daughter is power of associate attorney for health. As patient has dementia and does not understand the complexity of living will/advanced directive, it was discussed with patient's son. After discussion of benefits/risks procedures involved with full code, DNR CC arrest and DNR CC, the patient's son opted for full code. Patient does want artificial life support including intubation, tube feed, ventilator and/chest compression, central venous catheter, vasopressor and DC s hock if needed Microbiology Past 72 Hours 07/07/23 07:07 Mucosa - Nose SARS-CoV-2, Influenza & RSV (PCR) - Final Laboratory Results 07/08/23 04:30: WBC 7.5, RBC 3.35 L, Hgb 9.9 L, Hct 30.4 L, MCV 90.7, MCH 29.6, MCHC 32.6, RDW Std Deviation 43.3, RDW Coeff of Devyn 13.2, Plt Count 279, MPV 9.5, Immature Gran % (Auto) 0.100, Neut % (Auto) 56.9, Lymph % (Auto) 27.7, Sully % (Auto) 13.1 H, Eos % (Auto) 1.7, Baso % (Auto) 0.5, Absolute Neuts (auto) 4.3, Absolute Lymphs (auto) 2.09, Nucleated RBC % 0, Retic Count 1.62 H, Immature Retic Fraction 8.30, Retic Hgb Equivalent 33.1, Sodium 140, Potassium 3.5, Chloride 110 H, Carbon Dioxide 26.0, Anion Gap 4 L, BUN 15, Creatinine 0.66, Estim Creat Clear Calc 35.55, Est GFR (MDRD) Af Amer 110, Est GFR (MDRD) Non-Af 91, BUN/Creatinine Ratio 22.9 H, Glucose 90, Calcium 8.7, Iron 43 L, TIBC 320, Iron Saturation 13.4 L, Ferritin 21, Triglycerides 57, Cholesterol 90, LDL Cholesterol 24, VLDL Cholesterol 11, HDL Cholesterol 55, TSH 3.27 Clinical Impression(s) from Imaging Studies Brain CT 07/07/23 06:58 IMPRESSION: Chronic involutional changes of the brain. Electronically Signed: Asher Meng MD at 8:34 EDT , Cervical Spine CT 07/07/23 06:58 IMPRESSION: Multilevel degenerative changes, as described above. Electronically Signed: Asher Meng MD at 8:37 EDT , Chest X-Ray 07/07/23 07:30 IMPRESSION: Hyperinflation. No acute abnormality is seen. Electronically Signed: Asher Meng MD at 8:23 EDT , Echocardiogram 07/08/23 08:48 Interpretation Summary The estimated ejection fraction is 65 %. Ordering Physician: Cain Ramos Referring Physician: Jennifer Klein M.D. Performed By: Laura Mckenzie RDCS Charges/Coding Visit Charges Inpatient E&M: 37984 Subs Hosp L3
[2023-07-08 12:29] LABS: Ferritin 21 ng/mL (8-252); Iron 43 ug/dL (50-170); Iron Binding Capacity,Total 320 ug/dL (250-450); PERCENT IRON SATURATION 13.4 % (15.0-55.0)
--- NOTE | 2023-07-08 12:37 | CASEMGMT ---
Met with patient and her daughter to complete GERMAIN form. GERMAIN form explained to both who voiced understanding and signed form. Original form placed in pt?s chart and copy provided to?patient. Emma Frausto, Discharge Planning Asst
[2023-07-08 13:22] LABS: Platelet Count 293 K/mm3 (150-450); RET-HE 33.1 pg (30-35); Reticulocyte Count 1.62 % (0.5-1.5)
[2023-07-08 15:00] VITALS: BP 114/59; PULSE 66; RESP 18; TEMP 36.2; O2SAT 99
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
[2023-07-08] MEDS: Ascorbic Acid 500 MG Tablet PO (17:40)
[2023-07-08] MEDS: Sodium Ferric Gluconat/Sucrose 250 MG in 0.9% Normal Saline (250mL Bag) 250 ML 135 MG IV (17:40)
[2023-07-08 21:45] VITALS: BP 147/100; PULSE 62; RESP 16; TEMP 36.2; O2SAT 97
[2023-07-08] MEDS: Atorvastatin Calcium 20 MG Tablet PO (21:49)
[2023-07-09 04:12] VITALS: BMI 18.6
[2023-07-09 04:35] VITALS: BP 143/70; PULSE 66; RESP 18; TEMP 36.6; O2SAT 96
[2023-07-09 07:15] LABS: Absolute Lymphocyte Count 1.98 X10^3/uL (0.83-4.51); Absolute Neutrophil Count 4.5 X10^3/uL (2.0-7.7); Basophil# 0.06 X10^3/uL; Basophil% 0.8 % (0-1); Eosinophil# 0.21 X10^3/uL; Eosinophils% 2.7 % (0-5); Hematocrit 32.5 % (37-47); Hemoglobin 10.4 g/dL (12.0-15.0); Lymphocyte # 1.98 X10^3/ul (0.83-4.51); Mean Corpuscular Hgb 29.1 pg (27.0-32.0); Mean Corpuscular Volume 90.8 fL (81-99); Mean Platelet Vol. 9.9 fl (6.2-12.0); Monocyte# 1.13 X10^3/uL; Monocyte% 14.3 % (0-10); NRBC Flagged by Analyzer 0 % (0-5); Neutrophil # 4.51 X10^3/uL (2.7-7.7); Neutrophil % 56.8 % (47-70); Platelet Count 289 K/mm3 (150-450); RBC Distribution Width CV 13.2 % (11.6-14.6); RBC Distribution Width SD 44.1 fl (35.1-43.9); Red Blood Count 3.58 M/mm3 (4.2-5.4); White Blood Count 7.9 K/mm3 (4.4-11.0)
[2023-07-09 07:40] LABS: Anion Gap 4 (5-15); BUN 14 mg/dL (7-18); Calcium,Total 9.3 mg/dL (8.5-10.1); Chloride 107 mmol/L (98-107); Creatinine, Serum 0.61 mg/dL (0.55-1.02); EST Glomerular Filtration Rate 99 mL/min (>60); Est Glom Filt Rate - Afr Amer 120 mL/min (>60); Glucose 92 mg/dL (74-106); Potassium 3.8 mmol/L (3.5-5.1); Sodium Level 139 mmol/L (136-145)
[2023-07-09 09:43] VITALS: BP 159/89; PULSE 59; RESP 20; TEMP 36.7; O2SAT 94
--- NOTE | 2023-07-09 09:43 | CASEMGMT ---
Addendum entered by Amaris Sorensen 07/09/23 12:45: RN VANDANA to pt room, pt has left. Spoke with U placement secretary who states pt son came and picked pt up and the dtr Joi was in the car waiting. Attempted to reach Joi again with no success and unable to leave vm. Original Note: RN VANDANA into pt room for assessment, pt nurse present. Pt alert and oriented to self only. TC to pt dtr Joi Mckeon, unable to leave a vm. TC to Silvia Cisneros, she states that Joi is the DPOA and she would like RN VANDANA to speak with her. She is aware that this RN CM attempted to reach her without success. She took down RN CM phone number and states she will contact Joi to have her call this RN VANDANA. Awaiting returned phone call. Pt has dc order in.
[2023-07-09] MEDS: Multivitamins,Therapeutic Tablet 1 TABLET PO (10:04)
[2023-07-09] MEDS: Enoxaparin 40 MG/0.4 ML Syringe SC (10:04)
[2023-07-09] MEDS: Clopidogrel Bisulfate 75 MG Tablet PO (10:04)
[2023-07-09] MEDS: Escitalopram Oxalate 10 MG Tablet PO (10:04)
[2023-07-09] MEDS: Cyanocobalamin 500 MCG Tablet 1000 MCG PO (10:05)
[2023-07-09] MEDS: Aspirin E.C. 81 MG Tablet PO (10:05)
[2023-07-09] MEDS: Ascorbic Acid 500 MG Tablet PO (10:13)
[2023-07-09] MEDS: Ensure Plus High Protein 120 ML LIQUID PO (10:15)
--- NOTE | 2023-07-09 10:24 | DCINST_ITS ---
Discharge Instructions Diet Discharge Diet: 2000 mg Sodium Diet Activity Discharge Activity: Return to Normal Activity and May Not Drive Weight Bearing Status: Weight bearing as tolerated Dressing / Incision Call your doctor if you observe: Fever of 101 or Higher, Coldness, Increased Pain, Numbness or Tingling, Change in Color, Inability to urinate, Inability to have a bowel movement, Using more than 1 pad per hour, Shortness of breath, Dizziness, Fainting spells, Swelling in the ankles, Chest pain, Prolonged hiccupping, Increased palpitations (irregular heartbeat) and Calf discomfort Follow Up Care When: IN 2 WEEKS Test Results: Test results from this visit will be discussed in further detail at your follow- up appointment, if applicable. Discharge Plan Admission Admit Date/Time: 07/08/23 12:24 Primary Reason for Your Visit: Syncope/unresponsiveness. Attending Provider: Cain Ramos Primary Care Provider: Jennifer Klein Consulting Providers: Kera Diaz Discharge Orders/Prescriptions Prescriptions: New sennosides-docusate sodium [Stool Softener-Stimulant Laxat] 8.6-50 mg Tablet 2 tab PO BID PRN PRN (Reason: Constipation) Qty: 0 0RF Continued acetaminophen [Tylenol] 325 mg tablet 325 - 650 mg PO Q4H PRN (Reason: fever or pain) Qty: 90 0RF cyanocobalamin (vitamin B-12) 1,000 mcg tablet 1,000 mcg PO DAILY loperamide [Anti-Diarrheal (loperamide)] 2 mg capsule 2 mg PO Q6H PRN (Reason: loose stool) aspirin 81 MG tablet,delayed release (DR/EC) 81 mg PO DAILY@0800 multivitamin [One Daily Multivitamin] Tablet 1 tab PO DAILY clopidogrel [Plavix] 75 mg tablet 75 mg PO DAILY Qty: 90 3RF atorvastatin 20 mg tablet 20 mg PO DAILY Qty: 90 1RF escitalopram oxalate [Lexapro] 5 mg tablet 10 mg PO DAILY Qty: 90 3RF Other Ambulatory Orders: 30 Day Event Recorder Preventi (Urgent) Timeframe: 1 Month Facility: [facility] - Location: Cardiovascular Services Ordered By: Dr. Cain Ramos Referrals / Follow Up: Jennifer Klein MD [Primary Care Provider] - Luiz Bell MD [Med Staff - Active Staff] - Within 1 Month (Bradycardia, sinus pause) Disposition Disposition (needs filled in before D/C Order can be placed): Home, Self Care
--- NOTE | 2023-07-09 10:24 | PCM.DC.SUM ---
Providers Date of Admission: 07/08/23 Date of Discharge: 07/09/23 Primary Care Physician: Dr. Jennifer Klein MD Consultations 07/08/23 09:40 Consult: Cardiology Routine Consulting Provider: Kera Diaz Reason for Consult: Unresponsive episode, sinus bradycardia with sinus pause EMERGENT Consult: No MD Notified: Yes Date Notified: 07/08/23 Time Notified: 09:41 Method of Notification: Text Reason For Visit: SYNCOPE Diagnosis Discharge Diagnosis (1) Syncope: Status: Acute Code(s): R55 - Syncope and collapse Qualifiers: Syncope type: unspecified Qualified Code(s): R55 - Syncope and collapse Plan This 87-year-old female with history of dementia was brought to ED by EMS for episode of syncope with fall and then unresponsiveness. Patient did not require CPR. 1. Syncope/unresponsiveness episode with fall, exact cause unclear possible hypotension: Vitals by EMS shows blood pressure 98/62, heart rate 70, RR 16/min patient is being admitted in PCU. Orthostatic vitals did not show significant change in blood pressure or heart rate and does not meet criteria for orthostatic hypotension. Patient had 2D echo done during previous admission in February 2023 showed EF 55 to 60% with normal LV systolic function and size, no RWMA. Stage I diastolic dysfunction. 07/07: Limited echo was done which shows revealed normal LV function. Unresponsiveness/syncope thought to be possible due to fall/sinus pause leading to hypotension: Exact etiology unclear. Cardiology consult was done and note reviewed. On telemetry no significant arrhythmia that would make clear indication for pacemaker insertion. Continue telemonitoring and recommended 30-day event monitor at time of discharge. 07/08: welt drawer reviewed. Longest pauses 2.4 to second, others 1.87 1.79-second. Patient does not have symptomatic bradycardia or sinus pause. After discussion of public address systems mechanic, indication for pacemaker is 3.2-second with symptomatic bradycardia attributed to sinus pause and 6 seconds asymptomatic. Therefore patient does not meet criteria for pacemaker insertion at this time. Discharged on 30-day event monitor follow-up with public address systems mechanic Dr. Luiz Bell. TSH normal. 2. Previous admission related to fatigue malaise and near syncope: Workup was negative for acute stroke and [facility] neurologist recommended aspirin and Plavix for 3 weeks but patient already on aspirin and Plavix therefore continued. Atorvastatin 20 mg daily. TSH free T4 in normal limit. 3. Dementia unclear type with unclear behavior disturbance history: Patient has caregiver as son and home environment. Dementia is advanced. continue patient home donepezil regimen, on fall precaution. #4. Chronic normocytic anemia: Admission hemoglobin 11.3, on baseline. Acute on chronic severe anemia consistent with iron deficiency anemia: Hemoglobin dropped to 9.9 from baseline between 11-12. IV iron infusion ordered. Iron profile shows low iron, TIBC normal saturation 13.4 ferritin low 21 suggestive of chronic iron-deficiency anemia. Reticulocyte count elevated 1.62. 07/08: Prescription for iron and vitamin C sent to patient's pharmacy #5. Anxiety and depression: continue patient home low-dose escitalopram regimen. #6. Hyperlipidemia: Continue home dose Lipitor 20 mg daily. 07/08: Fasting lipid profile is normal LDL 24, HDL 55. Continue same dose of Lipitor. #7. Presumed pancreatic insufficiency: continue patient home chronic Creon regimen. #8. GERD: Not on PPI at home #9. DVT prophylaxis: Lovenox 40 mg subcu daily Discharge medication reconciliation done. Discharge follow-up instructions completed. Discharge process discussed with the patient and all questions were answered to patient's satisfaction. Follow with PCP in 1 to 2 weeks . Hospital course and discharge planning and medications discussed with the patient's daughter in the morning and patient's son around noon time. Total time spent, exact 35 minutes on discharge meds reconciliation, examination, coordination of care with nurses and ancillary staff, review of imaging and blood test and discussion with the patient on follow-up instructions. Living will/advanced directive/end of life care: Patient does have living will or advanced directive. Patient's son and daughter is power of tax associate attorney for health. As patient has dementia and does not understand the complexity of living will/advanced directive, it was discussed with patient's son. After discussion of benefits/risks procedures involved with full code, DNR CC arrest and DNR CC, the patient's son opted for full code. Patient does want artificial life support including intubation, tube feed, ventilator and/chest compression, central venous catheter, vasopressor and DC shock if needed Microbiology Past 72 Hours 07/07/23 07:07 Mucosa - Nose SARS-CoV-2, Influenza & RSV (PCR) - Final Laboratory Results 07/08/23 04:30: WBC 7.5, RBC 3.35 L, Hgb 9.9 L, Hct 30.4 L, MCV 90.7, MCH 29.6, MCHC 32.6, RDW Std Deviation 43.3, RDW Coeff of Devyn 13.2, Plt Count 279, MPV 9.5, Immature Gran % (Auto) 0.100, Neut % (Auto) 56.9, Lymph % (Auto) 27.7, [place] % (Auto) 13.1 H, Eos % (Auto) 1.7, Baso % (Auto) 0.5, Absolute Neuts (auto) 4.3, Absolute Lymphs (auto) 2.09, Nucleated RBC % 0, Retic Count 1.62 H, Immature Retic Fraction 8.30, Retic Hgb Equivalent 33.1, Sodium 140, Potassium 3.5, Chloride 110 H, Carbon Dioxide 26.0, Anion Gap 4 L, BUN 15, Creatinine 0.66, Estim Creat Clear Calc 35.55, Est GFR (MDRD) Af Amer 110, Est GFR (MDRD) Non-Af 91, BUN/Creatinine Ratio 22.9 H, Glucose 90, Calcium 8.7, Iron 43 L, TIBC 320, Iron Saturation 13.4 L, Ferritin 21, Triglycerides 57, Cholesterol 90, LDL Cholesterol 24, VLDL Cholesterol 11, HDL Cholesterol 55, TSH 3.27 Clinical Impression(s) from Imaging Studies Brain CT 07/07/23 06:58 IMPRESSION: Chronic involutional changes of the brain. Electronically Signed: Asher Meng MD at 8:34 EDT , Cervical Spine CT 07/07/23 06:58 IMPRESSION: Multilevel degenerative changes, as described above. Electronically Signed: Asher Meng MD at 8:37 EDT , Chest X-Ray 07/07/23 07:30 IMPRESSION: Hyperinflation. No acute abnormality is seen. Electronically Signed: Asher Meng MD at 8:23 EDT , Echocardiogram 07/08/23 08:48 Interpretation Summary The estimated ejection fraction is 65 %. Ordering Physician: Cain Ramos Referring Physician: Jennifer Klein M.D. Performed By: Laura Mckenzie RDCS Medications at Discharge Home Medications aspirin 81 mg tablet,delayed release 81 mg PO DAILY@0800 [facility] 07/01/20 acetaminophen 325 mg tablet (Tylenol) 325 - 650 mg (1 - 2 x 325 mg) PO Q4H PRN fever or pain #90 tabs 03/09/21 multivitamin (One Daily Multivitamin tablet) 1 tab PO DAILY HEALTH MAINTENANCE 10/07/22 clopidogrel 75 mg tablet (Plavix) 75 mg PO DAILY BLOOD THINNER #90 tabs 11/01/22 atorvastatin 20 mg tablet 20 mg PO DAILY #90 tabs 04/11/23 cyanocobalamin (vitamin B-12) 1,000 mcg tablet 1,000 mcg PO DAILY 05/25/23 loperamide 2 mg capsule (Anti-Diarrheal (loperamide)) 2 mg PO Q6H PRN loose stool 05/25/23 escitalopram oxalate 5 mg tablet (Lexapro) 10 mg (2 x 5 mg) PO DAILY DEPRESSION #90 tabs 06/01/23 ascorbic acid (vitamin C) 500 mg tablet 500 mg PO BID #60 tabs 07/09/23 ferrous fumarate 325 mg (106 mg iron) tablet (Ferretts) 325 mg PO QODAY 1 month #30 tabs 07/09/23 sennosides 8.6 mg-docusate sodium 50 mg tablet (Stool Softener-Stimulant Laxative) 2 tab PO BID PRN PRN Constipation #0 tabs 07/09/23 Physical Exam Narrative On the curtain stretcher heart rate during nighttime was in 50s and during daytime 60s. Sinus pause observed. Missed sinus beat. Patient denies symptoms of chest pain pressure, dizziness lightheadedness or diaphoresis or shortness of breath Physical exam General: Alert, Oriented x3, Cooperative HEENT: Atraumatic, PERRLA, EOMI, Normocephalic Oral: Oral mucosa moist. No Gingival or Mucosal Lesions/ Ulcerations Neck: Supple, No JVD, Negative Carotid Bruits Chest wall/Lungs: Air entry diminished in bilateral lung bases. No crepitation/rhonchi Cardiovascular: Sinus bradycardia with sinus pauses, Normal S1, Normal S2, No M/G/R Abdomen: Bowel Sounds Present, Soft, Non Tender, Non-Distended : No dysuria. No renal angle tenderness. No suprapubic tenderness. Extremities: No edema, Capillary Refill Less than 3 Seconds Skin: No rashes, No breakdown Musculoskeletal: Mild muscle tenderness over left upper extremity. Does not feel bony tenderness. ROM maintained. Neurological: Cranial nerves II-XII grossly intact, DTR 2+/4. No acute focal neurological deficit. Muscle strength 4+/5 at knees and hip joints Psych/Mental Status: Flat affect, forgetfulness. Advanced dementia Medical Records Data Medical Nutrition Assessment Dietitian: Malnutrition Criteria Met Start: 07/07/23 15:52 Freq: Status: Active Protocol: Document 07/07/23 15:53 (Rec: 07/07/23 15:53 [id number]) Nutrition Malnutrition Evidence of Malnutrition Exists Yes Malnutrition (severe): Chronic Evidenced By Suboptimal Energy Intake ( Severe),Weight Loss (Severe), Physical Changes (Severe) Clinical Problem Chronic Disease or Condition Related Malnutrition Etiology severe, chronic malnutrition related to inadequate energy intake w/ advanced age, dementia Signs/Symptoms as evidenced by unintentional 7% wt loss x 1 month, estimated PO intake meeting < 75% of estimated energy needs > 3 months, Severe muscle wasting/fat loss evident per physical exam in orbital, clavicle, acromion and temporal areas, BMI 17.7 Status Active Problem Recommendation Dietitian Recommendations/Changes will adjust diet to regular; add 120mL ensure plus high protein 4x/day w/ medpass for additional nutrition if consumed given evidence of malnutrition Weight / BMI Weight Weight: 101 lb 13.657 oz Body Mass Index (BMI) 18.6 ABG / Lab / Microbiology Data 07/09/23 05:30 07/09/23 05:30 Laboratory: Laboratory Results - last 24 hr 07/08/23 04:30: Retic Count 1.62 H, Immature Retic Fraction 8.30, Retic Hgb Equivalent 33.1, Iron 43 L, TIBC 320, Iron Saturation 13.4 L, Ferritin 21 07/09/23 05:30: WBC 7.9, RBC 3.58 L, Hgb 10.4 L, Hct 32.5 L, MCV 90.8, MCH 29.1, MCHC 32.0, RDW Std Deviation 44.1 H, RDW Coeff of Devyn 13.2, Plt Count 289, MPV 9.9, Immature Gran % (Auto) 0.400, Neut % (Auto) 56.8, Lymph % (Auto) 25.0, [place] % (Auto) 14.3 H, Eos % (Auto) 2.7, Baso % (Auto) 0.8, Absolute Neuts (auto) 4.5, Absolute Lymphs (auto) 1.98, Nucleated RBC % 0, Sodium 139, Potassium 3.8, Chloride 107, Carbon Dioxide 28.0, Anion Gap 4 L, BUN 14, Creatinine 0.61, Estim Creat Clear Calc 37.50, Est GFR (MDRD) Af Amer 120, Est GFR (MDRD) Non-Af 99, BUN/Creatinine Ratio 23.0 H, Glucose 92, Calcium 9.3 Microbiology: Microbiology 07/07/23 07:07 Mucosa - Nose SARS-CoV-2, Influenza & RSV (PCR) - Final Radiography Diagnostic Testing: Radiology Impression Echocardiogram 07/08/23 08:48 Interpretation Summary The estimated ejection fraction is 65 %. Ordering Physician: Cain Ramos Referring Physician: Jennifer Klein M.D. Performed By: Laura Mckenzie RDCS D/C Instructions Discharge Diet: 2000 mg Sodium Diet Weight Bearing Status: Weight bearing as tolerated Call your doctor if you observe: Fever of 101 or Higher, Coldness, Increased Pain, Numbness or Tingling, Change in Color, Inability to urinate, Inability to have a bowel movement, Using more than 1 pad per hour, Shortness of breath, Dizziness, Fainting spells, Swelling in the ankles, Chest pain, Prolonged hiccupping, Increased palpitations (irregular heartbeat) and Calf discomfort When: IN 2 WEEKS Meaningful Use Info Meaningful Use Meaningful Use Diagnoses (Choose all that apply): None applicable Ischemic Stroke Statin Dosing Therapy Reference: STATIN DOSE THERAPY REFERENCE: * Patients > 75 years receive moderate or high dose statin therapy. * Patients 75 years or YOUNGER should receive HIGH intensity statin dose unless contraindicated. You will be required to document reason for non-treatment if statin daily dose does not meet guidelines. HIGH DOSE STATIN THERAPY DAILY Atorvastatin > than or = to 40 mg Rosuvastatin > than or = to 20 mg Amlodipine + Atorvastatin > than or = to 2.5/40 mg Ezetimibe + Simvastatin 10/80 mg Simvastatin 80mg Discharge Plan Admission Admit Date/Time: 07/08/23 12:24 Primary Reason for Your Visit: Syncope/unresponsiveness. Attending Provider: Cain Ramos Primary Care Provider: Jennifer Klein Consulting Providers: Kera Diaz Discharge Orders/Prescriptions Prescriptions: New sennosides-docusate sodium [Stool Softener-Stimulant Laxat] 8.6-50 mg Tablet 2 tab PO BID PRN PRN (Reason: Constipation) Qty: 0 0RF Ferretts 325 mg (106 mg iron) tablet 325 mg PO QODAY 30 Days Qty: 30 1RF ascorbic acid (vitamin C) 500 mg tablet 500 mg PO BID Qty: 60 2RF Continued acetaminophen [Tylenol] 325 mg tablet 325 - 650 mg PO Q4H PRN (Reason: fever or pain) Qty: 90 0RF cyanocobalamin (vitamin B-12) 1,000 mcg tablet 1,000 mcg PO DAILY loperamide [Anti-Diarrheal (loperamide)] 2 mg capsule 2 mg PO Q6H PRN (Reason: loose stool) aspirin 81 MG tablet,delayed release (DR/EC) 81 mg PO DAILY@0800 multivitamin [One Daily Multivitamin] Tablet 1 tab PO DAILY clopidogrel [Plavix] 75 mg tablet 75 mg PO DAILY Qty: 90 3RF atorvastatin 20 mg tablet 20 mg PO DAILY Qty: 90 1RF escitalopram oxalate [Lexapro] 5 mg tablet 10 mg PO DAILY Qty: 90 3RF Other Ambulatory Orders: 30 Day Event Recorder Preventi (Urgent) Timeframe: 1 Month Facility: [facility] - Location: Cardiovascular Services Ordered By: Dr. Cain Ramos Referrals / Follow Up: Jennifer Klein MD [Primary Care Provider] - Luiz Bell MD [Med Staff - Active Staff] - Within 1 Month (Bradycardia, sinus pause) Disposition Disposition (needs filled in before D/C Order can be placed): Home, Self Care Charges/Coding Visit Charges Inpatient E&M: 63942 Disch Hosp >30min
[2023-07-09] MEDS: Ferrous Sulfate 325 MG Tablet PO (11:24)
[2023-07-11 09:00] LABS: Vitamin B12 330 pg/mL (211-911)
== END 2023-07-09 12:02 | disposition home or self-care (01) | DRG 312 ==
LOC: ED 08:11 → PCU 09:41
PROVIDERS: Admitting Provider Internal Medicine; Emergency Provider Emergency Medicine; PCP Internal Medicine; Visit Provider Internal Medicine
DX: R55 Syncope and collapse (principal); F03.90 Unspecified dementia, unspecified severity, without behavioral disturbance, psychotic disturbance, mood disturbance, and anxiety; F32.A Depression, unspecified; D64.9 Anemia, unspecified; E78.5 Hyperlipidemia, unspecified; E86.0 Dehydration; K21.9 Gastro-esophageal reflux disease without esophagitis; R00.1 Bradycardia, unspecified; W06.XXXA Fall from bed, initial encounter; Z87.891 Personal history of nicotine dependence; Z79.02 Long term (current) use of antithrombotics/antiplatelets; Z79.899 Other long term (current) drug therapy; Z79.82 Long term (current) use of aspirin; F41.9 Anxiety disorder, unspecified
CPT/HCPCS: 36415; 70450; 70496; 70498; 71045; 72125; 80048; 80061; 80076; 81001; 82607; 82728; 82962; 83540; 83550; 83735; 84100; 84443; 84484; 85025; 85045; 85610; 85730; 87631; 93005; 93308; 94668; 96361; 96365; 96366; 96372; 97161; 97166; 97802; 99221; 99284; 99285; Q9967; A4216; G0378; J2916

== ENCOUNTER 2023-07-22 15:43 | Emergency (ER) | payer MEDICARE, SELFPAY ==
[2023-07-22 15:44] VITALS: BP 95/75; PULSE 70; RESP 22; TEMP 36.4; O2SAT 96; BMI 19.3
--- NOTE | 2023-07-22 16:06 | RAD_ITS ---
STUDY: X-RAY CHEST REASON FOR EXAM: Female, 87 years old. chest pain TECHNIQUE: Frontal and lateral views of the chest. COMPARISON: 07/07/2023 FINDINGS: There is hyperinflation of the lungs consistent with chronic obstructive lung disease (COPD). No infiltrates or effusions. There is no demonstrated pleural abnormality. There is stable abnormal soft tissue density in the medial right apex. Normal size heart. Normal mediastinum and marvin. Normal visualized pulmonary arteries. Normal visualized aortic arch and descending thoracic aorta. Normal visualized thoracic spine. Normal visualized ribs, clavicles, and shoulders. There is no demonstrated abnormality of the visualized soft tissue structures of the upper abdomen. RAD/Chest PA and Lateral IMPRESSION: There are findings consistent with COPD. There is no evidence of acute chest disease. Abnormal soft tissue density in the medial right apex, stable. Electronically Signed: Iker Blanc MD at 16:59 EDT ,
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
[2023-07-22 16:30] LABS: Absolute Lymphocyte Count 1.53 X10^3/uL (0.83-4.51); Absolute Neutrophil Count 3.1 X10^3/uL (2.0-7.7); Basophil# 0.05 X10^3/uL; Basophil% 0.9 % (0-1); Eosinophil# 0.12 X10^3/uL; Eosinophils% 2.2 % (0-5); Hematocrit 35.1 % (37-47); Hemoglobin 11.1 g/dL (12.0-15.0); Lymphocyte # 1.53 X10^3/ul (0.83-4.51); Lymphocyte % 27.4 % (19-41); Mean Corp Hgb Conc 31.6 g/dL (32-36); Mean Corpuscular Hgb 29.8 pg (27.0-32.0); Mean Corpuscular Volume 94.4 fL (81-99); Mean Platelet Vol. 9.3 fl (6.2-12.0); Monocyte# 0.74 X10^3/uL; Monocyte% 13.3 % (0-10); NRBC Flagged by Analyzer 0 % (0-5); Neutrophil # 3.12 X10^3/uL (2.7-7.7); Neutrophil % 55.8 % (47-70); Platelet Count 336 K/mm3 (150-450); RBC Distribution Width CV 13.7 % (11.6-14.6); RBC Distribution Width SD 47.2 fl (35.1-43.9); Red Blood Count 3.72 M/mm3 (4.2-5.4); White Blood Count 5.6 K/mm3 (4.4-11.0)
[2023-07-22 16:47] LABS: Anion Gap 4 (5-15); BUN 14 mg/dL (7-18); BUN/Creat Ratio 19.9 RATIO (10-20); Calcium,Total 9.2 mg/dL (8.5-10.1); Chloride 105 mmol/L (98-107); EST Glomerular Filtration Rate 84 mL/min (>60); Est Glom Filt Rate - Afr Amer 102 mL/min (>60); Estimated Creatinine Clearance 38.63 ml/min; Glucose 148 mg/dL (74-106); Potassium 3.7 mmol/L (3.5-5.1); Sodium Level 138 mmol/L (136-145); Troponin-I HS (w/2H Reflex) 7 pg/mL (3.0-54.0)
[2023-07-22 17:49] VITALS: BP 146/76; PULSE 73; RESP 18; O2SAT 95
[2023-07-22 18:27] LABS: Reflex Troponin-HS? (from REC) Y
[2023-07-22 18:57] LABS: Troponin-I HS 8 pg/mL (3.0-54.0)
[2023-07-22 19:00] VITALS: BP 128/81; PULSE 69; RESP 16; O2SAT 96
[2023-07-22 19:13] VITALS: BP 134/99; PULSE 74; RESP 18; TEMP 36.1; O2SAT 17
== END 2023-07-22 19:20 | disposition home or self-care (01) ==
PROVIDERS: Physician Assistant; Emergency Provider Emergency Medicine; PCP Internal Medicine; Visit Provider Emergency Medicine
DX: R07.9 Chest pain, unspecified (principal); Z87.891 Personal history of nicotine dependence; Z90.49 Acquired absence of other specified parts of digestive tract; Z90.710 Acquired absence of both cervix and uterus; Z96.641 Presence of right artificial hip joint
CPT/HCPCS: 71046; 80048; 84484; 85025; 93005; 99284; A4216

== ENCOUNTER → 2023-08-10 | Outpatient (CLI) | payer MEDICARE, SELFPAY | END | disposition home or self-care (01) | PROVIDERS: PCP Internal Medicine; Referring Provider Physician Assistant Medical; Visit Provider Physician Assistant Medical | DX: I63.9 Cerebral infarction, unspecified (principal) | CPT/HCPCS: 93225; 93226 ==

== ENCOUNTER 2023-10-09 12:47 | Emergency (ER) | payer MEDICARE, SELFPAY ==
[2023-10-09 12:50] VITALS: BP 131/110; PULSE 88; RESP 16; TEMP 36.6; O2SAT 96; BMI 19.5
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
[2023-10-09 13:56] LABS: Absolute Lymphocyte Count 1.79 X10^3/uL (0.83-4.51); Absolute Neutrophil Count 3.6 X10^3/uL (2.0-7.7); Basophil# 0.04 X10^3/uL; Basophil% 0.6 % (0-1); Eosinophil# 0.09 X10^3/uL; Eosinophils% 1.4 % (0-5); Hematocrit 35.3 % (37-47); Lymphocyte # 1.79 X10^3/ul (0.83-4.51); Lymphocyte % 28.5 % (19-41); Mean Corp Hgb Conc 31.2 g/dL (32-36); Mean Corpuscular Hgb 28.8 pg (27.0-32.0); Mean Corpuscular Volume 92.4 fL (81-99); Mean Platelet Vol. 8.9 fl (6.2-12.0); Monocyte# 0.73 X10^3/uL; Monocyte% 11.6 % (0-10); NRBC Flagged by Analyzer 0 % (0-5); Neutrophil # 3.61 X10^3/uL (2.7-7.7); Neutrophil % 57.6 % (47-70); Platelet Count 305 K/mm3 (150-450); RBC Distribution Width CV 13.4 % (11.6-14.6); RBC Distribution Width SD 45.8 fl (35.1-43.9); Red Blood Count 3.82 M/mm3 (4.2-5.4); White Blood Count 6.3 K/mm3 (4.4-11.0)
[2023-10-09 14:08] VITALS: BP 101/56; PULSE 67; RESP 16; O2SAT 91
[2023-10-09 14:10] LABS: Anion Gap 1 (5-15); BUN 17 mg/dL (7-18); BUN/Creat Ratio 27.2 RATIO (10-20); Calcium,Total 9.3 mg/dL (8.5-10.1); Chloride 111 mmol/L (98-107); Creatinine, Serum 0.63 mg/dL (0.55-1.02); EST Glomerular Filtration Rate 96 mL/min (>60); Est Glom Filt Rate - Afr Amer 116 mL/min (>60); Estimated Creatinine Clearance 39.39 ml/min; Glucose 78 mg/dL (74-106); Sodium Level 141 mmol/L (136-145)
[2023-10-09] MEDS: 0.9% Normal Saline (1000mL) 1,000 ML 999 ML IV (14:22)
[2023-10-09 15:00] VITALS: BP 125/80; PULSE 72; RESP 14; O2SAT 93
[2023-10-09 15:23] LABS: Mucous, Urine 0 SEEN /hpf (<or=2+); Red Blood Cells-Urine 0 SEEN /hpf (0-5); Squamous Epithelial Cells - UA 0 SEEN /hpf (5-10)
[2023-10-09 15:34] LABS: Color, Urine Yellow (Yellow); Glucose, Dipstick Normal (Normal); Ketone-Dipstick Negative (Negative); Leukocyte Esterase-Dipstick 25 /ul (Negative); Nitrite-Dipstick Positive (Negative); Occult Blood-Urine 10 /ul (Negative); Protein-Dipstick Negative (Negative); Specific Gravity, Urine 1.025 (1.002-1.030); Urine Bilirubin Dipstick Negative (Negative); Urine Clarity Clear (Clear); Urine Urobilinogen Normal (Normal)
[2023-10-09 15:49] VITALS: BP 125/80; PULSE 72; RESP 14; TEMP 36.6; O2SAT 93
[2023-10-09 15:49] LABS: Bacteria 2+ /hpf (None Seen); White Blood Cells 0-5 SEEN /hpf (0-5)
[2023-10-09 15:51] VITALS: BP 129/81; PULSE 67; RESP 16; TEMP 36.6; O2SAT 93
[2023-10-09 16:03] LABS: Amphetamine Urine VISTA NEGATIVE (<1000 ng/mL); Barbiturate Urine VISTA NEGATIVE (< 200 ng/mL); Benzodiazepine Urine VISTA NEGATIVE (< 200 ng/mL); Cocaine Urine VISTA NEGATIVE (< 300 ng/mL); Ecstacy Urine VISTA NEGATIVE (< 500 ng/mL); Methadone Urine VISTA NEGATIVE (< 300 ng/mL); PCP Urine VISTA NEGATIVE (< 25 ng/mL); THC Urine VISTA NEGATIVE (< 50 ng/mL); Vista UDS pH Range 5
== END 2023-10-09 15:52 | disposition home or self-care (01) ==
PROVIDERS: Emergency Provider Student in an Organized Health Care Education/Training Program; PCP Internal Medicine; Visit Provider Student in an Organized Health Care Education/Training Program
DX: R41.0 Disorientation, unspecified (principal); F03.90 Unspecified dementia, unspecified severity, without behavioral disturbance, psychotic disturbance, mood disturbance, and anxiety; E86.0 Dehydration; Z87.891 Personal history of nicotine dependence; Z90.49 Acquired absence of other specified parts of digestive tract; Z90.710 Acquired absence of both cervix and uterus; K21.9 Gastro-esophageal reflux disease without esophagitis; F41.9 Anxiety disorder, unspecified; F32.A Depression, unspecified; Z87.440 Personal history of urinary (tract) infections; Z86.718 Personal history of other venous thrombosis and embolism; Z79.82 Long term (current) use of aspirin; Z79.899 Other long term (current) drug therapy
CPT/HCPCS: 80048; 80307; 81001; 82077; 85025; 96360; 99283; J7030; A4216

== ENCOUNTER 2023-10-24 15:08 | Emergency (ER) | payer MEDICARE, SELFPAY ==
[2023-10-24 15:09] VITALS: BP 152/96; PULSE 67; RESP 19; TEMP 36.6; O2SAT 98
== END 2023-10-24 17:38 | disposition left against medical advice (07) ==
LOC: ED 17:41
PROVIDERS: PCP Internal Medicine
DX: S80.929A Unspecified superficial injury of unspecified lower leg, initial encounter (principal)

== ENCOUNTER → 2023-10-26 | Outpatient (CLI) | payer MEDICARE, SELFPAY ==
--- NOTE | 2023-10-26 07:45 | VDLE_ITS ---
Reason For Study: LLE PAIN RIGHT LEFT CFV is compressible, spontaneous, phasic, GSV is normal. competent and demonstrates normal CFV is compressible, spontaneous, phasic, augmentation. competent, and demonstrates normal Procedure augmentation. This is a venous duplex using B-mode, color FV is compressible, spontaneous, phasic, flow and spectral Doppler. competent and demonstrates normal Exam performed in department. augmentation. A preliminary report was called and/or faxed POP V is compressible, spontaneous, phasic, to Dr. Klein @ 08:20 am @ [phone]. competent and demonstrates normal augmentation. T/P Trunk is compressible. PTV is compressible. LT PerV is compressible. VL/Venous Duplex US, Unilateral Interpretation Summary Deep veins of the left lower extremity are patent and compressible segmentally. There is no evidence of left lower extremity deep vein thrombosis. The left great saphenous vein tavon ears patent and compressible segmentally. Ordering Physician: Jennifer Klein Referring Physician: Jennifer Klein Performed By: Padmini Bowman, VIRGEN, RVT
== END | disposition home or self-care (01) ==
PROVIDERS: PCP Internal Medicine; Referring Provider Internal Medicine; Visit Provider Internal Medicine
DX: M79.605 Pain in left leg (principal)
CPT/HCPCS: 93971

== ENCOUNTER 2024-01-01 18:14 | Inpatient (IN) | payer MEDICARE, SELFPAY ==
[2024-01-01] VITALS (14 sets, daily range): BP systolic 103–144; BP diastolic 64–97; PULSE 75–89; RESP 15–23; TEMP 36.6–37.7; O2SAT 92–97; BMI 18.3; BMI 18.8
--- NOTE | 2024-01-01 18:28 | RAD_ITS ---
EXAM: XR CHEST, 1 VIEW CLINICAL INDICATION: Neuro deficit, acute, stroke suspected TECHNIQUE: Frontal view of the chest. COMPARISON: CTA head and neck on the same date. FINDINGS: LUNGS AND PLEURAL SPACES: Right upper lobe perihilar pulmonary opacity correlating with the identified mass. Hyperinflated lungs consistent with COPD. No pneumothorax. No effusion. HEART: No significant abnormality. Cardiac silhouette not enlarged. MEDIASTINUM: Central airways and mediastinal contour are unremarkable. BONES/JOINTS: No significant abnormality. No acute fracture. SOFT TISSUES: Surgical clips near the GE junction. VASCULATURE: Atherosclerosis. RAD/Chest 1 View IMPRESSION: 1. Right upper lobe perihilar pulmonary opacity correlating with the identified mass. 2. Hyperinflated lungs consistent with COPD. Electronically Signed: Trever Bernardo DO at 19:44 EDT ,
--- NOTE | 2024-01-01 18:28 | CT_ITS ---
We are attempting to reach an attending provider to discuss findings. An addendum with communication details will be sent when the communication is complete. EXAM: CT HEAD WITHOUT INTRAVENOUS CONTRAST CLINICAL INDICATION: Neuro deficit, acute, stroke suspected TECHNIQUE: Multiple axial images were obtained of the head without intravenous contrast. This CT exam was performed using one or more of the following dose reduction techniques: automated exposure control, adjustment of the mA and/or kV according to patient size, and/or use of iterative reconstruction technique. COMPARISON: CT head, 07/07/2023. CT angiogram, 07/06/2023. FINDINGS: BRAIN AND EXTRA-AXIAL SPACES: There is non-specific periventricular hypoattenuation which is most commonly related to chronic microvascular ischemic disease in a patient of this age. There is no mass, mass-effect, or shift of the midline structures. No evidence of acute infarct or acute intracranial hemorrhage. There is no evidence of pathologic extra-axial fluid. There is no hydrocephalus. Patent basal cisterns. BONES/JOINTS: No significant abnormality. No discrete lytic or blastic abnormalities. VASCULATURE: Arteriosclerosis. SINUSES: No significant findings. MASTOID AIR CELLS: No significant effusion. ORBITS: Bilateral ocular lens extraction presumptively for the treatment of cataracts. Otherwise, no acute orbital pathology. CT/STROKE Brain/Head without Cont IMPRESSION: Chronic microvascular ischemic changes similar to the prior CT examination. No evidence of acute infarct or hemorrhage. ASPECTS: 10. Electronically Signed: Trever Bernardo DO at 18:42 EDT ,
--- NOTE | 2024-01-01 18:29 | CT_ITS ---
EXAM: CT ANGIOGRAPHY HEAD AND NECK WITH INTRAVENOUS CONTRAST CLINICAL INDICATION: Neuro deficit, acute, stroke suspected TECHNIQUE: [place] [facility]/head and neck CT angiography protocol performed with intravenous contrast. This CT exam was performed using one or more of the following dose reduction techniques: automated exposure control, adjustment of the mA and/or kV according to patient size, and/or use of iterative reconstruction technique. MIP reconstructed images were created and reviewed. CONTRAST: IV 100mL [id number] COMPARISON: Noncontrast CT head on the same date. FINDINGS: HEAD: RIGHT ANTERIOR CEREBRAL ARTERY: No significant abnormality. No occlusion or significant stenosis. Anterior communicating artery is present. No aneurysm. RIGHT MIDDLE CEREBRAL ARTERY: No significant abnormality. No occlusion or significant stenosis. No aneurysm. RIGHT POSTERIOR CEREBRAL ARTERY: No significant abnormality. No occlusion or significant stenosis. No aneurysm. RIGHT INTRACRANIAL INTERNAL CAROTID ARTERY: No significant abnormality. No significant stenosis. No dissection or occlusion. RIGHT INTRACRANIAL VERTEBRAL ARTERY: No significant abnormality. No significant stenosis. No dissection or occlusion. LEFT ANTERIOR CEREBRAL ARTERY: No significant abnormality. No occlusion or significant stenosis. No aneurysm. LEFT MIDDLE CEREBRAL ARTERY: No significant abnormality. No occlusion or significant stenosis. No aneurysm. LEFT POSTERIOR CEREBRAL ARTERY: No significant abnormality. No occlusion or significant stenosis. No aneurysm. LEFT INTRACRANIAL INTERNAL CAROTID ARTERY: No significant abnormality. No significant stenosis. No dissection or occlusion. LEFT INTRACRANIAL VERTEBRAL ARTERY: No significant abnormality. No significant stenosis. No dissection or occlusion. BASILAR ARTERY: No significant abnormality. No occlusion or significant stenosis. No aneurysm. OTHER VASCULATURE: No vascular malformation. NECK: RIGHT COMMON CAROTID ARTERY: No significant abnormality. No significant stenosis. No dissection or occlusion. RIGHT EXTRACRANIAL INTERNAL CAROTID ARTERY: Trace atheroma at the right carotid bifurcation and carotid bulb. No significant stenosis. No dissection or occlusion. RIGHT EXTERNAL CAROTID ARTERY: No significant abnormality. No occlusion. RIGHT EXTRACRANIAL VERTEBRAL ARTERY: No significant abnormality. No significant stenosis. No dissection or occlusion. LEFT COMMON CAROTID ARTERY: No significant abnormality. No significant stenosis. No dissection or occlusion. LEFT EXTRACRANIAL INTERNAL CAROTID ARTERY: Trace atheroma at the left carotid bifurcation and carotid bulb. No significant stenosis. No dissection or occlusion. LEFT EXTERNAL CAROTID ARTERY: No significant abnormality. No occlusion. LEFT EXTRACRANIAL VERTEBRAL ARTERY: No significant abnormality. No significant stenosis. No dissection or occlusion. BRACHIOCEPHALIC AND SUBCLAVIAN ARTERIES: Normal as visualized. No occlusion or significant stenosis. LUNG APICES: Right upper lobe/perihilar mass measuring approximately 4.3 cm. Centrilobular emphysema. MEDIASTINUM: Right superior mediastinal lymphadenopathy. HEAD and NECK: BONES/JOINTS: Degenerative changes throughout the spine. Bilateral TMJ arthrosis. No discrete lytic or blastic abnormalities. SOFT TISSUES: No significant abnormality. CAROTID STENOSIS REFERENCE USING NASCET CRITERIA: % ICA stenosis = (1 - narrowest ICA diameter/diameter of distal cervical ICA) x 100. Mild - <50% stenosis. Moderate - 50-69% stenosis. Severe - 70-94% stenosis. Near occlusion - 95-99% stenosis. Occluded - 100% stenosis. CT/STROKE CTA Head AND Neck W/Con IMPRESSION: 1. No discrete evidence of large vessel occlusion or critical arterial stenosis in the head or neck. 2. Right upper lobe/perihilar mass measuring approximately 4.3 cm. 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 3. Right superior mediastinal lymphadenopathy. 4. Centrilobular emphysema. N.B. : The above Results were Read Back by Trever Bernardo DO to Edward Toney MD, and understanding confirmed on 01/01/2024 18:50:11 (ET). Electronically Signed: Trever Bernardo DO at 19:00 EDT ,
--- OUTSIDE RECORDS SUMMARY | 2024-01-01 18:31 | XMS RPT_ITS | CCD ---
Author Organization [facility] CliniSyky Care Team Providers Care Restorative Care Technician Name Role Phone ALEXIS CAMPBELLIL M Unavailable Unavailable TIERRA KLEIN Unavailable Unavailable CHO, RALF Unavailable Unavailable SHANNAN, ARELI M Unavailable Unavailable TIERRA KLEIN Unavailable Unavailable CHO, RALF Unavailable Unavailable VOLL, MANDY DO Unavailable Unavailable VOLL, MANDY DO Unavailable Unavailable VOLL, MANDY DO Unavailable Unavailable TIERRA KLEIN MD Unavailable Unavailable TIERRA KLEIN MD Unavailable Unavailable PROVIDER, UNKNOWN Unavailable Unavailable PROVIDER, UNKNOWN Unavailable Unavailable PROVIDER, UNKNOWN Unavailable Unavailable STEVEN, KRISHAN E Unavailable Unavailable STEVEN, KRISHAN E Unavailable Unavailable STEVEN, KRISHAN E Unavailable Unavailable MARTY ROCK MD Unavailable Unavailable PROVIDER, UNKNOWN Unavailable Unavailable STEVEN, KRISHAN E Unavailable Unavailable STEVEN, KRISHAN E Unavailable Unavailable MARTY ROCK MD Unavailable Unavailable STEVEN, KRISHAN E Unavailable Unavailable MARTY ROCK MD Unavailable Unavailable PROVIDER, UNKNOWN Unavailable Unavailable MARTY ROCK MD Unavailable Unavailable FENZL, AURELIO E Unavailable Unavailable FENZL, AURELIO E Unavailable Unavailable FENZL AURELIO E Unavailable Unavailable MARTY ROCK MD Unavailable Unavailable PROVIDER, UNKNOWN Unavailable Unavailable OMLEY TOMA DO Unavailable Unavailable OMLEY, TOMA DO Unavailable Unavailable TIERRA KLEIN MD Unavailable Unavailable TOMA LUGO DO Unavailable Unavailable TIERRA KLEIN MD Unavailable Unavailable PROVIDER, UNKNOWN Unavailable Unavailable PROVIDER, UNKNOWN Unavailable Unavailable PROVIDER, UNKNOWN Unavailable Unavailable TIERRA KLEIN MD Unavailable Unavailable TIERRA KLEIN MD Unavailable Unavailable STEVEN, KRISHAN E Unavailable Unavailable STEVEN, KRISHAN E Unavailable Unavailable STEVEN, KRISHAN E Unavailable Unavailable PROVIDER, UNKNOWN Unavailable Unavailable PROVIDER, UNKNOWN Unavailable Unavailable PROVIDER, UNKNOWN Unavailable Unavailable TIERRA KLEIN MD Unavailable Unavailable TIERRA KLEIN MD Unavailable Unavailable TIERRA KLEIN MD Unavailable Unavailable TIERRA KLEIN MD Unavailable Unavailable PROVIDER, UNKNOWN Unavailable Unavailable PROVIDER, UNKNOWN Unavailable Unavailable PROVIDER, UNKNOWN Unavailable Unavailable TIERRA KLEIN MD Unavailable Unavailable TIERRA KLEIN MD Unavailable Unavailable TIERRA KLEIN MD Unavailable Unavailable TIERRA KLEIN MD Unavailable Unavailable PROVIDER, UNKNOWN Unavailable Unavailable PROVIDER, UNKNOWN Unavailable Unavailable PROVIDER, UNKNOWN Unavailable Unavailable TIERRA KLEIN MD Unavailable Unavailable TIERRA KLEIN MD Unavailable Unavailable TIERRA KLEIN MD Unavailable Unavailable TIERRA KLEIN MD Unavailable Unavailable PROVIDER, UNKNOWN Unavailable Unavailable PROVIDER, UNKNOWN Unavailable Unavailable PROVIDER, UNKNOWN Unavailable Unavailable VELASQUEZ, ANJEL L Unavailable Unavailable VELASQUEZ, ANJEL L Unavailable Unavailable PHYSICIAN, PATIENT UNSURE Unavailable Unavaroselia pace PHYSICIAN, PATIENT UNSURE Unavailable TIERRA Howe MD Admitting Unavailable TIERRA KLEIN MD Attending Unavailable TIERRA KLEIN MD Primary Care Unavailable VINITA GANT MD Consulting Unavailable PROVIDER, UNKNOWN Consulting Unavailable PROVIDER, UNKNOWN Consulting Unavailable VINITA GANT MD Admitting Unavailable VINITA GANT MD Attending Unavailable VINITA GANT MD Primary Care Unavailable VINITA GANT MD Consulting Unavailable PROVIDER, UNKNOWN Consulting Unavailable PROVIDER, UNKNOWN Consulting Unavailable ARELI CAMPBELL MD Admitting Unavailable ARELI CAMPBELL MD Attending Unavailable ARELI CAMPBELL MD Primary Care Unavailable TIERRA KLEIN Referring Unavailable TEIRRA KLEIN Admitting Unavailable TIERRA KLEIN Attending Unavailable TIERRA KLEIN Primary Care Unavailable LOUIS STANLEY DO Admitting Unavailable LOUIS STANLEY DO Attending Unavailable LOUIS STANLEY DO Primary Care Unavailable VINITA GANT MD Consulting Unavailable VINITA GANT MD Referring Unavailable PROVIDER, UNKNOWN Consulting Unavailable PROVIDER, UNKNOWN Consulting Unavailable TANI HDZ DO Admitting Unavailable TANI HDZ DO Attending Unavailable TANI HDZ DO Primary Care Unavailable VINITA GANT MD Admitting Unavailable VINITA GANT MD Attending Unavailable VINITA GANT MD Primary Care Unavailable VINITA GANT MD Consulting Unavailable PROVIDER, UNKNOWN Consulting Unavailable PROVIDER, UNKNOWN Consulting Unavailable Unavailable Primary Care Provider UnavailTierra Andrade MD Primary Care Provider [phone] Tierra Klein MD Primary Care Provider [phone] TIERRA KLEIN Primary Care Unavailable DINORA KLEIN Referring Unavailable TIERRA KLEIN Primary Care Unavailable TIERRA KLEIN Primary Care Unavailable TIERRA KLEIN Primary Care Unavailable TIERRA KLEIN Primary Care Unavailable TIERRA KLEIN Primary Care Unavailable TIERRA KLEIN Primary Care Unavailable SELF Referring Unavailable ORESTES HOOKS Referring Unavailable TIERRA KLEIN Primary Care Unavailable Allergies Allergy Classification Reported Allergen(s) Allergy Type Date of Onset Reaction(s) Facility (2 sources) Adhesive Tape; Translations: [TAPE] Propensity to adverse reactions (disorder) [facility] Repository (3 sources) estradiol; Translations: [ESTRADIOL] Drug Allergy 8 [facility] Repository (2 sources) estradiol Drug Allergy [facility] Rep[facility] (2 sources) penicillin Drug Allergy [facility] (2 sources) Sulfonamides (Antibiotic) Drug allergy (disorder) [facility] Repository (2 sources) NSAID Drug allergy (disorder) [facility] Repository (2 sources) NOVOCAIN Drug allergy (disorder) [facility] Repository (17 sources) Acetate; Translations: [ACETATE SALT] Drug Allergy 5 Hives [facility] (17 sources) Adhesive Tape; Translations: [ADHESIVE TAPE (ROSINS)] Propensity to adverse reactions to substance 1 Rash, Itching [facility] (17 sources) Ciprofloxacin; Translations: [CIPROFLOXACIN] Drug Allergy 9 Swelling [facility] Work Phone: (16 sources) Estradiol Drug Allergy 8 GI Upset [facility] Work Phone: (17 sources) Estradiol / Levonorgestrel; Translations: [ESTRADIOL-DANIELLE ORGESTREL] Drug Allergy 8 Rash [facility] Work Phone: (17 sources) Estrogens, Conjugated (FPC); Translations: [CONJUGATED ESTROGENS] Drug Allergy 8 GI Upset [facility] Work Phone: (17 sources) hydrOXYzine; Translations: [HYDROXYZINE] Drug Allergy 4 Other: See Comments [facility] Work Phone: (17 sources) Non-steroidal anti-inflammator y agent; Translations: [NSAIDS (NON-STEROIDAL ANTI-INFLAMMATOR Y DRUG)] Propensity to adverse reactions 8 GI Upset [facility] Work Phone: (17 sources) Penicillins; Translations: [PENICILLINS] Propensity to adverse reactions 5 [facility] Work Phone: (17 sources) Procaine; Translations: [PROCAINE HCL] Drug Allergy 5 [facility] Work Phone: (17 sources) Sulfonamides (Antibiotic); Translations: [SULFA (SULFONAMIDE ANTIBIOTICS)] Propensity to adverse reactions 5 [facility] Work Phone: (17 sources) Sodium Phosphates-Pramo x-Gly; Translations: [SODIUM PHOSPHATES-PRAMO X-GLY] Drug Intolerance 1 Intolerance [facility] Medications Current Medications Medication Drug Class(es) Dates Sig (Normalized) Sig (Original) acetaminophen 325 mg / oxyCODONE hydrochloride 5 mg oral tablet (16 sources) Opioid Agonist take 1 tablet by mouth every four hours as needed oxyCODONE-acetamin ophen (PERCOCET) 5-325 mg tablet Take 1 tablet by mouth every 4 hours as needed. Active Comment on above: Take 1 tablet by jose david every 4 hours as needed. aspirin 81 mg delayed release oral tablet (16 sources) Platelet Aggregation Inhibitor, Nonsteroidal Anti-inflammatory Drug take 1 tablet by mouth once daily aspirin, enteric coated (ASPIRIN, ENTERIC COATED) 81 mg EC tablet Take 81 mg by mouth once daily. Active Comment on above: Take 81 mg by mouth once daily. Bacillus coagulans (16 sources) Bacillus coagula ns (PROBIOTIC, B. COAGULANS, ORAL) Take by mouth. Active Bacillus coagula ns (PROBIOTIC, B. COAGULANS, ORAL) Take by mouth. 0 Active Comment on above: Take by mouth. benzonatate 100 mg oral capsule (5 sources) Non-narcotic Antitussive Start: 4 take 1 capsule by mouth every eight hours as needed benzonatate (TESSALON PERLES) 100 mg capsule Take 1 capsule by mouth three times a day as needed for cough for up to 12 doses. 12 capsule 06/08/2023 Active Comment on above: Take 1 capsule by mo [facility] three times a day as needed for cough for up to 12 doses. calcium carb/vit D2/minerals (CALTRATE PLUS ORAL) (16 sources) take 1 tablet by mouth twice daily calcium carb/vit D2/minerals (CALTRATE PLUS ORAL) Take 1 tablet by mouth twice daily. Active take 1 tablet by mouth twice madan ly calcium carb/vit D2/minerals (CALTRATE PLUS ORAL) Take 1 tablet by mouth twice daily. 0 Active Comment on above: Take 1 tablet by jose david twice daily. calcium carbonate 1500 mg / cholecalciferol 0.01 mg oral tablet (16 sources) Vitamin D Start: 6 take 1 tablet by mouth twice daily calcium carbonate 600 mg-cholecalciferol 400 units (CALCIUM 600 + D) 600 mg(1,500mg) -400 unit tab Indications: Osteoporosis Take 1 tablet by mouth twice daily. 60 tablet 5 11/11/2015 Active Comment on above: Take 1 tablet by jose david twice daily. cholecalciferol 0.05 mg oral capsule (16 sources) Vitamin D Start: 6 take 1 tablet by mouth once daily Cholecalciferol, Vitamin D3, 2,000 unit cap Take 1 tablet by mouth once daily. 0 05/09/2015 Active Comment on above: Take 1 tablet by jose david once daily. clopidogrel 75 mg oral tablet (7 sources) P2Y12 Platelet Inhibitor Start: 4 clopidogrel (PLAVIX) 75 mg tablet 04/12/2023 Active cyanocobalamin, vitamin B-12, (B-12 DOTS ORAL) (16 sources) cyanocobalamin, vitamin B-12, (B-12 DOTS ORAL) Take by mouth. Active cyanocobalamin, vitamin B-12, (B-12 DOTS ORAL) Take by mouth. 0 Active Comment on above: Take by mouth. diclofenac sodium 75 mg delayed release oral tablet (16 sources) Nonsteroidal Anti-inflammatory Drug Start: 05-06-19 16 take 1 tablet by mouth twice daily as needed for pain diclofenac, EC, (VOLTAREN) 75 mg EC tablet Indications: Pain in right hip Take 1 tablet by mouth twice daily as needed. For pain/inflammation. Take with food. 05/06/2015 Active Comment on above: Take 1 tablet by jose david th twice daily as needed. For pain/inflammation. Take with food. escitalopram 5 mg oral tablet (16 sources) Serotonin Reuptake Inhibitor Start: 10-04-19 21 take 1 tablet by mouth once daily escitalopram oxalate (LEXAPRO) 5 mg tablet Take 5 mg by mouth once daily. 10/03/2020 Active Comment on above: Take 5 mg by mouth o nce daily. fluticasone propionate 0.05 mg/actuat metered dose nasal spray (16 sources) Corticosteroid Start: 03-22-19 17 take 1 spray(s) nasal route once daily fluticasone (FLONASE) 50 mcg/actuation nasal spray Indications: Acute recurrent sinusitis, unspecified location Use 1 [place] in each nostril once daily. 16 g 2 03/22/2016 Active Comment on above: Use 1 [place] in each nostril once daily. mineral oil 0.425 mg/mg / petrolatum 0.573 mg/mg ophthalmic ointment (16 sources) White Petrolatum-Mineral Oil 57.3-42.5 % ointment Use 1 application in both eyes daily at bedtime. Active White Petrolatum -Mineral Oil 57.3-42.5 % ointment Use 1 application in both eyes daily at bedtime. 0 Active Comment on above: Use 1 application in both eyes daily at bedtime. Multiple Vitamin (MULTIVITAMIN ADULT PO) (2 sources) Multiple Vitamin (MULTIVITAMIN ADULT PO) Take by mouth. 0 Active ONE DAILY MULTIVITAMIN ORAL (16 sources) ONE DAILY MULTIV ITAMIN ORAL Take by mouth once daily. vitamins Active ONE DAILY MULTIV ITAMIN ORAL Take by mouth once daily. vitamins 0 Active Comment on above: Take by mouth once d aily. vitamins potassium gluconate 2.5 meq oral tablet (16 sources) Start: 05-06-2015 Potassium 99 mg tab Take 1 tablet by mouth as needed. 0 05/06/2015 Active Comment on above: Take 1 tablet by jose david th as needed. vit calc,iron,folic ( #2 ORAL) (16 sources) vit calc,iron,folic ( #2 ORAL) Take by mouth. Active vit elizabeth c,iron,folic ( #2 ORAL) Take by mouth. 0 Active Comment on above: Take by mouth. Problems Active Problems Problem Classification Problem Date Documented Da te Episodic/Chronic Anxiety disorders (16 sources) Anxiety; Translations: [Anxiety disorder, unspecified] Onset: [...] ducts] Onset: 7 Chronic Diverticulosis and diverticulitis (20 sources) Diverticulosis of large intestine; Translations: [Diverticulosis of large intestine without perforation or abscess without bleeding] Onset: 9 Resolved: 4 02-15-2015 Chronic Esophageal disorders (16 sources) Gastroesophageal reflux disease without esophagitis; Translations: [...] initial encounter] Onset: 7 Headache; including migraine (16 sources) Headache; Translations: [Headache] 02-15-2015 Episodic Hemorrhoids (16 sources) Internal hemorrhoids; Translations: [Other hemorrhoids] 02-15-2015 Episodic Inflammation; infection of eye (except that caused by tuberculosis or sexually transmitteddisease) (16 sources) Bilateral punctate keratitis of eyes; Translations: [Punctate keratitis, bilateral] Onset: 8 07-01-2017 Chronic Nutritional deficiencies (20 sources) Vitamin D deficiency; Translations: [Vitamin D deficiency, unspecified] Onset: 2 02-15-2015 Chronic Occlusion or stenosis of precerebral arteries (16 sources) Left carotid artery stenosis; Translations: [Occlusion and stenosis of left carotid artery] Onset: 6 03-09-2021 Chronic Open wounds of extremities (2 sources) Laceration of muscle of left hand; Translations: [Laceration of unspecified muscle, fascia and tendon at wrist and hand level, left hand, initial encounter] 12-24-2022 Episodic Osteoarthritis (16 sources) Degenerative joint disease involving multiple joints; Translations: [Polyosteoarthritis, unspecified] Onset: 9 02-15-2015 Chronic Osteoporosis (17 sources) Other osteoporosis without current pathological fracture; Translations: [Osteoporosis] Onset: 2 03-09-2021 Chronic Other connective tissue disease (2 sources) Pain in right arm; Translations: [Pain in right arm] 06-03-2023 Episodic Other connective tissue disease (1 source) Pain in left lower limb; Translations: [Pain in left leg] 10-24-2023 Episodic Other eye disorders (16 sources) Bilateral vitreous floaters; Translations: [Other vitreous opacities, bilateral] Onset: 5 02-18-2015 Chronic Other eye disorders (16 sources) Posterior vitreous detachment of right eye; Translations: [Vitreous degeneration, right eye] Onset: 7 07-31-2016 Chronic Other eye disorders (16 sources) Vitreous floaters; Translations: [Other vitreous opacities, unspecified eye] Onset: 7 07-31-2016 Chronic Other fractures (1 source) Compression fracture of lumbar spine; Translations: [Wedge compression fracture of first lumbar vertebra, initial encounter for closed fracture] 06-03-2023 Episodic Other gastrointestinal disorders (16 sources) Irritable bowel syndrome with diarrhea; Translations: [Irritable bowel syndrome with diarrhea] Onset: 5 03-05-2015 Chronic Other injuries and conditions due to external causes (5 sources) Injury of right foot; Translations: [Unspecified injury of right foot, initial encounter] Episodic Other injuries and conditions due to external causes (1 source) Injury of head; Translations: [Unspecified injury of head, initial encounter] 11-23-2022 Episodic Other lower respiratory disease (1 source) Cough; Translations: [Acute cough] 06-08-2023 Episodic Other non-traumatic joint disorders (3 sources) Acute ankle pain; Translations: [Pain in right ankle and joints of right foot] Episodic Peripheral and visceral atherosclerosis (17 sources) Peripheral vascular disease; Translations: [Peripheral vascular disease, unspecified] 02-15-2015 Chronic Residual codes; unclassified (2 sources) Pain; Translations: [Pain, unspecified] 11-26-2023 Episodic Residual codes; unclassified (1 source) Pain, unspecified; Translations: [Pain] Onset: 4 Episodic Spondylosis; intervertebral disc disorders; other back problems (20 sources) Lumbar spondylosis; Translations: [Spondylosis without myelopathy or radiculopathy, lumbar region] 02-15-2015 Chronic Spondylosis; intervertebral disc disorders; other back problems (20 sources) Low back pain; Translations: [Neck pain] Onset: 6 02-15-2015 Episodic Superficial injury; contusion (4 sources) Abrasion of right hand, initial encounter; Translations: [Contusion of foot] Onset: 7 Episodic Unclassified (1 source) Unknown / UNK(Unknown) Onset: 7 Unclassified (16 sources) H/O: infectious disease; Translations: [History of Clostridium difficile] Onset: 5 03-05-2015 Varicose veins of lower extremity (2 sources) Varicose veins of lower extremity with inflammation; Translations: [Varicose veins of right lower extremity with inflammation] Episodic Past or Other Problems Problem Classification Problem Date Documented Da te Episodic/Chronic Abdominal pain (7 sources) Right lower quadrant pain; Translations: [Right lower quadrant pain] Onset: 09-11-2008 Resolved: 08-24-2011 08-24-2011 Episodic Anal and rectal conditions (20 sources) Anal fistula; Translations: [Anal fistula] Onset: 10-14-2014 02-15-2015 Episodic Fracture of lower limb (16 sources) Closed fracture of great toe; Translations: [Displaced fracture of proximal phalanx of unspecified great toe, subsequent encounter for fracture with nonunion] Onset: 12-24-2015 12-24-2015 Episodic Gastritis and duodenitis (16 sources) Acute gastritis; Translations: [Acute gastritis without bleeding] Onset: 06-10-2006 02-15-2015 Episodic Inflammation; infection of eye (except that caused by tuberculosis or sexually transmitteddisease) (16 sources) Meibomianitis; Translations: [Hordeolum internum unspecified eye, unspecified eyelid] Onset: 06-12-2014 02-15-2015 Episodic Inflammatory diseases of female pelvic organs (16 sources) Cyst of Bartholin's gland duct; Translations: [Cyst of Bartholin's gland] Onset: 10-31-2014 02-15-2015 Episodic Intestinal obstruction without hernia (16 sources) Small bowel obstruction; Translations: [Unspecified intestinal obstruction, unspecified as to partial versus complete obstruction] Onset: 04-22-2012 02-15-2015 Episodic Mycoses (16 sources) Onychomycosis due to dermatophyte ; Translations: [Tinea unguium] Onset: 06-10-2006 02-15-2015 Episodic Nonspecific chest pain (1 source) Chest pain Onset: 09-20-2016 Episodic Other connective tissue disease (16 sources) Tendinitis of right rotator cuff; Translations: [Other shoulder lesions, right shoulder] Onset: 01-21-2014 02-15-2015 Episodic Other connective tissue disease (1 source) Pain in right arm; Translations: [Pain of right upper extremity] Onset: 06-03-2023 Episodic Other eye disorders (16 sources) Dry eyes; Translations: [Dry eye syndrome of bilateral lacrimal glands] Onset: 01-03-2014 02-15-2015 Episodic Other eye disorders (20 sources) Tear film insufficiency; Translations: [Dry eye syndrome of unspecified lacrimal gland] Onset: 06-12-2014 02-15-2015 Episodic Other eye disorders (16 sources) Meibomian gland dysfunction of bilateral eyes; Translations: [Meibomian gland dysfunction right eye, upper and lower eyelids] Onset: 07-01-2017 07-01-2017 Episodic Other eye disorders (16 sources) Senile ectropion of right lower eyelid; Translations: [Senile ectropion of right lower eyelid] Onset: 07-16-2019 07-16-2019 Episodic Other eye disorders (16 sources) Senile ectropion of left lower eyelid; Translations: [Senile ectropion of left lower eyelid] Onset: 07-16-2019 07-16-2019 Episodic Other eye disorders (16 sources) Bilateral epiphora of eyes due to excessive tear production; Translations: [Epiphora due to excess lacrimation, bilateral lacrimal glands] Onset: 07-16-2019 07-16-2019 Episodic Other fractures (4 sources) Other fracture of first lumbar vertebra, initial encounter for closed fracture; Translations: [Wedge compression fracture of first lumbar vertebra, subsequent encounter for fracture with routine healing] Onset: 01-09-2017 Episodic Other gastrointestinal disorders (16 sources) Complete fecal incontinence; Translations: [Full incontinence of feces] Onset: 03-05-2015 03-05-2015 Episodic Other gastrointestinal disorders (16 sources) Diarrhea; Translations: [Diarrhea, unspecified] Onset: 04-30-2015 03-09-2021 Episodic Other non-traumatic joint disorders (1 source) Pain in right hip; Translations: [Pain in right hip] Onset: 08-26-2019 Episodic Other nutritional; endocrine; and metabolic disorders (16 sources) Weight loss; Translations: [Abnormal weight loss] Onset: 03-05-2015 03-05-2015 Episodic Residual codes; unclassified (16 sources) FH: Crohn's disease; Translations: [Family history of other diseases of the digestive system] Onset: 03-05-2015 03-05-2015 Episodic Screening and history of mental health and substance abuse codes (16 sources) Ex-smoker; Translations: [Personal history of nicotine dependence] Onset: 05-06-2015 03-09-2021 Episodic Skull and face fractures (3 sources) Other fracture of base of skull, initial encounter for closed fracture; Translations: [Other fracture of base of skull, initial encounter for closed fracture] Onset: 12-07-2016 Episodic Unclassified (7 sources) NO SHOW Onset: 11-25-2010 Resolved: 09-07-2013 09-07-2013 Results Test Name Value Interpretation Reference Range Facility [facility] 11-26-2023 CNOV Office Visit (UCWSTR ) ----- ESTHER HILL ([id number]) 1935 F Date Time Provider Department 11/26/23 11:00 AM ORESTES HOOKS [facility] During your visit today, we recorded the following information about you: Temperature Pulse Respiration Blood pressure 97.8 degrees 68/minute 16/minute 122/70 Weight 49.4 kg GeoEitanOrestesEDILIA [email or web address] 11/26/2023 2:23 PM Signed Subjective Patient came in with complaints of right-sided rib pain. Patient says has been going on for about a month. Patient denies any difficulty breathing. Patient denies any pain when she urinates. Patient denies any other symptoms. Patient denies known injury and said she was pulling weeds before the pain started. The history is provided by the patient. No english language learner teacher was used. Review of Systems Constitutional: Negative. Skin: Negative. Objective Physical Exam Constitutional: Appearance: Normal appearance. Cardiovascular: Rate and Rhythm: Normal rate and regular rhythm. Heart sounds: Normal heart sounds. Pulmonary: Effort: Pulmonary effort is normal. Breath sounds: Normal breath sounds. Musculoskeletal: Arms: Comments: Patient is tender in the area marked above when palpated. No deformities noted. Neurological: Mental Status: She is alert. PAST MEDICAL HISTORY Diagnosis Date ACUTE GASTRITIS [...] RESCJ AND ANAST 05/19/12 20cm ileum resection ESOPHAGOGASTRODUODENOSCOP Y TRANSORAL DIAGNOSTIC 06/10/2006 EGD HEMORRHOIDECTOMY INT AND XTRNL 2/> COLUMN/ELIAZAR 2006 LAPAROSCOPY COLECTOMY PARTIAL W/ANASTOMOSIS 08/20/08 for diverticulitis, appendectomy at same time LIGJ DIVJ AND/EXCJ VARICOSE VEIN CLUSTER 1 LEG 1970s Varicose Vein Surgery right leg PAST SURGICAL HISTORY OF 1997 and 2006 hiatal hernia surgery x 2 PAST SURGICAL HISTORY OF 200? left breast cyst bengin PAST SURGICAL HISTORY OF bile duct surg @ [place] PAST SURGICAL HISTORY OF 03/2015 had vein [...] Crystal lens ALLERGIES Cipro [Ciprofloxacin], Climara Pro [Estradiol-Levonorgestrel ], Acetate Salt, Adhesive Tape (Rosins), Estradiol, Fleet Phospho-Soda Accu-Prep [Sodium Pcdavcwrto-Dtjhmv-Yap], Hydroxyzine, Novocain [Procaine Hcl], Nsaids (Non-Steroidal Anti-Inflammatory Drug), Penicillins, Premarin [Conjugated Estrogens], and Sulfa (Sulfonamide Antibiotics) MEDICATIONS benzonatate (TESSALON PERLES) 100 mg capsule Take 1 capsule by mouth three times a day as needed for cough for up to 12 doses. clopidogrel (PLAVIX) 75 mg tablet aspirin, enteric coated (ASPIRIN, ENTERIC COATED) 81 mg EC tablet Take 81 mg by mouth once daily. escitalopram oxalate (LEXAPRO) 5 mg tablet Take 5 mg by mouth once daily. calcium carb/vit D2/minerals (CALTRATE PLUS ORAL) Take 1 tablet by mouth twice daily. cyanocobalamin, vitamin B-12, (B-12 DOTS ORAL) Take by mouth. Bacillus coagulans (PROBIOTIC, (more content not included)... Normal [facility] 11-26-2023 [facility] Telephone ([facility]) ----- ESTHER HILL ([id number]) 1935 F Date Time Provider Department 11/26/23 ORESTES HOOKS [facility] During your visit today, we recorded the following information about you: Orestes Hooks APRN.[facility] 11/26/2023 2:23 PM Signed Please call and let her know that xray was negative. Thank you Kathie Francisco MA 11/26/2023 2:45 PM Signed Left message for patient to return call. SHAGUFTA Aguilar Melissa, MA 11/27/2023 9:14 AM Signed notified pt. Kathie Francisco MA Allergies As of Date: 11/26/2023 Noted Allergy Reaction CIPRO (CIPROFLOXACIN) 02/17/2009 7 - Swelling CLIMARA PRO (ESTRADIOL-LEVONORGES*04/2007 2 - Rash ACETATE SALT 03/05/2015 4 - Hives ADHESIVE TAPE (ROSINS) 06/22/2010 2 - Rash 9 - Itching ESTRADIOL 05/23/2007 8 - GI Upset FLEET PHOSPHO-SODA ACCU-PREP (SOD*09/17/2010 5 - Intolerance HYDROXYZINE 09/24/2013 14 - Other: See Comments Comments: Excess sedation NOVOCAIN (PROCAINE HCL) 01/08/2005 Comments: unresponsive and difficult to arose NSAIDS (NON-STEROIDAL ANTI-INFLAM*08/01/2007 8 - GI Upset PENICILLINS 01/08/2005 PREMARIN (CONJUGATED ESTROGENS) 05/23/2007 8 - GI Upset SULFA (SULFONAMIDE ANTIBIOTICS) 01/08/2005 Date Reviewed: 11/26/2023 Reviewed by: Kathie Francisco MA - Fully Assessed Reason for Visit: Results [95] Prescriptions as of 11/27/2023 - benzonatate (TESSALON PERLES) 100 mg capsule Take 1 capsule by mouth three times a day as needed for cough for up to 12 doses. - clopidogrel (PLAVIX) 75 mg tablet - aspirin, enteric coated (ASPIRIN, ENTERIC COATED) 81 mg EC tablet Take 81 mg by mouth once daily. - escitalopram oxalate (LEXAPRO) 5 mg tablet Take 5 mg by mouth once daily. - calcium carb/vit D2/minerals (CALTRATE PLUS ORAL) Take 1 tablet by mouth twice daily. - cyanocobalamin, vitamin B-12, (B-12 DOTS ORAL) Take by mouth. - Bacillus coagulans (PROBIOTIC, B. COAGULANS, ORAL) Take by mouth. - vit calc,iron,folic ( #2 ORAL) Take by mouth. - oxyCODONE-acetaminophen (PERCOCET) 5-325 mg tablet Take 1 tablet by mouth every 4 hours as needed. - fluticasone (FLONASE) 50 mcg/actuation nasal spray Use 1 [place] in each nostril once daily. - calcium carbonate 600 mg-cholecalciferol 400 units (CALCIUM 600 + D) 600 mg(1,500mg) -400 unit tab Take 1 tablet by mouth twice daily. - Cholecalciferol, Vitamin D3, 2,000 unit cap Take 1 tablet by mouth once daily. - Potassium 99 mg tab Take 1 tablet by mouth as needed. - diclofenac, EC, (VOLTAREN) 75 mg EC tablet Take 1 tablet by mouth twice daily as needed. For pain/inflammation. Take with food. - White Petrolatum-Mineral Oil 57.3-42.5 % ointment Use 1 application in both eyes daily at bedtime. - ONE DAILY MULTIVITAMIN ORAL Take by mouth once daily. vitamins Meds Comments as of 08/07/2016: Denies daily medications other than vitamins 5-27-17 Problem List As Of Date 11/26/2023 Noted Resolved Headache(784.0) [R51] Diverticulosis of colon (without mention of hem* 09/21/2013 Internal hemorrhoids without mention of complic* Cervicalgia [M54.2] 12/14/2005 Dermatophytosis of nail [B35.1] 06/10/2006 Acute gastritis without mention of hemorrhage [*06/10/2006 GENERAL OSTEOARTHROSIS [M15.9] 06/07/2008 DIVERTICULITIS COLON - NO HEMORRHAGE [K57.32] 07/29/2008 09/21/2013 Abdominal pain, right lower quadrant [R10.31] 09/11/2008 08/24/2011 NO SHOW [950344] 11/25/2010 09/07/2013 Vitamin D deficiency [E55.9] 06/21/2011 Osteoporosis [M81.0] 12/27/2011 SBO (small bowel obstruction) ([facility]) [K56.609] 04/22/2012 Anxiety [F41.9] 10/30/2013 Dry eyes - Both Eyes [H04.123] 01/03/2014 Lens replaced by other means - Both Eyes [Z96.1]01/03/2014 Tendinitis of right rotator cuff [M75.81] 01/21/2014 Meibomianitis - Both Eyes [H00.029] 06/12/2014 Tear film insufficiency, unspecified - Both Eye*06/12/2014 Anal fistula [K60.3] 10/14/2014 Bartholin cyst [N75.0] 10/31/2014 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 [K*01/30/2015 GERD without esophagitis [K21.9] 02/15/2015 Diverticulosis of large intestine [K57.30] Cervical disc disorder with radiculopathy [M50.* Peripheral vascular disease (HCC) [I73.9] DJD (degenerative joint disease), lumbar [M47.8* 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] Vitreous floaters of both eyes [H43.393] 02/18/2015 Dry eye syndrome, bilateral [H04.123] 02/18/2015 Pseudophakia of both eyes [Z96.1] 02/18/2015 Full incontinence of feces [R15.9] 03/05/2015 Irritable bowel syndrome with diarrhea [K58.0] 03/05/2015 History of Clostridium difficile [MOO9751] 03/05/2015 Weight loss [R63.4] 03/05/2015 Family history of Crohn's disease [Z83.79] 03/05/2015 Diarrhea [R19.7] 04/30/2015 Ex-smoker [Z87.891] 05/06/2015 Well adult exam [Z00.00] 05/06/2015 Stenosis of left carotid artery [I65.22] 05/16/2015 Closed displaced fracture of proximal (more content not included)... Normal [facility] XR RIB/CHST 3V AP RIB/OBL/CH ST Tino 11-26-2023 XR RIB/CHST 3V AP RIB/OBL/CHST R * * *Final Report* * * DATE OF EXAM: Nov 26 2023 12:11PM WOX [id number] - XR RIB/CHST 3V AP RIB/OBL/CHST R / PROCEDURE REASON: Pain * * * * Physician Interpretation * * * * CHEST AND RIGHT RIBS CLINICAL HISTORY: Pain, right lower lung pain without injury TECHNIQUE: PA chest, AP and oblique ribs. COMPARISON: 07/01/2015 chest RESULT: Heart/mediastinum: Within normal limits. Lungs/pleura: No infiltrate, edema or mass. Chronic blunting of left costophrenic angle consistent with fibrosis. Bones: Right ribs and other visible bony structures are negative. Lines/tubes/devices: None visualized. IMPRESSION: Negative right ribs. No acute findings in the chest. 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 Social Service Worker: [employer] Transcribe Date/Time: Nov 26 2023 2:13P Dictated by : COLLIN ARRIAGA MD This examination was interpreted and the report reviewed and electronically signed by: COLLIN ARRIAGA MD on Nov 26 2023 2:16PM EST [id number] Normal [facility] XR Ribs - right Views and Ch est PAon 11-26-2023 IMPRESSION: Negative right ribs. No acute findings in the chest. 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 Social Service Worker: [employer] Transcribe Date/Time: Nov 26 2023 2:13P Dictated by : COLLIN ARRIAGA MD This examination was interpreted and the report reviewed and electronically signed by: COLLIN ARRIAGA MD on Nov 26 2023 2:16PM [facility] DIVISION OF RADIOLOGY * * *Final Report* * * DATE OF EXAM: Nov 26 2023 12:11PM WOX [id number] - XR RIB/CHST 3V AP RIB/OBL/CHST R / PROCEDURE REASON: Pain * * * * Physician Interpretation * * * * CHEST AND RIGHT RIBS CLINICAL HISTORY: Pain, right lower lung pain without injury TECHNIQUE: PA chest, AP and oblique ribs. COMPARISON: 07/01/2015 chest RESULT: Heart/mediastinum: Within normal limits. Lungs/pleura: No infiltrate, edema or mass. Chronic blunting of left costophrenic angle consistent with fibrosis. Bones: Right ribs and other visible bony structures are negative. Lines/tubes/devices: None visualized. DIVISION OF RADIOLOGY Provider, [facility] - 11/26/2023 * * *Final Report* * * DATE OF EXAM: Nov 26 2023 12:11PM WOX 5244 - XR RIB/CHST 3V AP RIB/OBL/CHST R / PROCEDURE REASON: Pain * * * * Physician Interpretation * * * * CHEST AND RIGHT RIBS CLINICAL HISTORY: Pain, right lower lung pain without injury TECHNIQUE: PA chest, AP and oblique ribs. COMPARISON: 07/01/2015 chest RESULT: Heart/mediastinum: Within normal limits. Lungs/pleura: No infiltrate, edema or mass. Chronic blunting of left costophrenic angle consistent with fibrosis. Bones: Right ribs and other visible bony structures are negative. Lines/tubes/devices: None visualized. IMPRESSION IMPRESSION: Negative right ribs. No acute findings in the chest. 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 Social Service Worker: IB[employer] Transcribe Date/Time: Nov 26 2023 2:13P Dictated by : COLLIN ARRIAGA MD This examination was interpreted and the report reviewed and electronically signed by: COLLIN ARRIAGA MD on Nov 26 2023 2:16PM [facility] Radiology Study observation (narrative) [facility] XR Ribs - right Views and Ch est PAOrdered By: Ccf Provider on 11-26-2023 [facility] CNOVon 10-24-2023 CNOV Office Visit ([facility] ) ----- ESTHER HILL ([id number]) 1935 F Date Time Provider Department 10/24/23 3:30 PM [facility]ARRAN[facility] During your visit today, we recorded the following information about you: Edna Carranza APRN.CNP 10/24/2023 3:38 PM Signed Triage Note: [place] Esther Hill is a 87 year old female who presents today for CC of concern for blood clot in leg. She has a h/o of a DVT and has taken eliquis. Pain is the same as when she had a blood clot. She is no longer on eliquis. She was in [place] ED, and left due to wait. I advised that this time in day I could not get an US here in [place], and offered to check in [place], that to see her here in [facility] I would need same day results. Patient declined visit and to go to [place], and will go back to [place] ED There were no vitals taken for this visit. Social History Tobacco Use Smoking status: Former Packs/day: 0.50 Years: 10.00 Additional pack years: 0.00 Total pack years: 5.00 Types: Cigarettes Smokeless tobacco: Never Tobacco comments: quit 1992 Vaping Use Vaping Use: Never used Substance Use Topics Alcohol use: No Drug use: No PAST MEDICAL HISTORY 06/10/2006: ACUTE GASTRITIS W/O HEMORRHAGE 10/14/2014: Anal fistula 10/30/2013: Anxiety 10/31/2014: Bartholin cyst 10/14/2014: Blood per rectum 2009: Bowel disease Comment: diverticulitis/03/18 of colon removed No date: Cervical disc disorder with radiculopathy Comment: had epidural injections 12/14/2005: Cervicalgia 06/10/2006: Dermatophytosis of nail No date: Diverticulosis of large intestine 01/03/2014: Dry eyes - Both Eyes No date: Dysphagia 01/30/2015: 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 Fosamax started. No date: Osteoporosis Comment: BMD 11/11/2015 No date: Peripheral vascular disease (HCC) No date: Personal history of unspecified urinary disorder 01/21/2014: Right shoulder pain 04/22/2012: SBO (small bowel obstruction) No date: SI joint arthritis 09/21/2012: Syncope 06/12/2014: Tear film insufficiency, unspecified - Both Eyes 01/21/2014: Tendinitis of right rotator cuff 06/21/2011: Vitamin D deficiency I have confirmed and edited as necessary, the [facility] ASSESSMENT/PLAN: 1. Left leg pain - ICD9: 729.5, ICD10: M79.605 Advised to go to ED for further treatment and evaluation. Diagnosis and treatment plan were discussed and questions were answered to the patient's satisfaction. Pt acknowledged understanding of concepts and follow up plan. Specific signs and symptoms that would indicate the need for higher level of care were discussed in detail warranting prompt ER evaluation. Edna Carranza APRN.[employer] Allergies As of Date: 10/24/2023 Noted Allergy Reaction CIPRO (CIPROFLOXACIN) 02/17/2009 7 - Swelling CLIMARA PRO (ESTRADIOL-LEVONORGES*04/2007 2 - Rash ACETATE SALT 03/05/2015 4 - Hives ADHESIVE TAPE (ROSINS) 06/22/2010 2 - Rash 9 - Itching ESTRADIOL 05/23/2007 8 - GI Upset FLEET PHOSPHO-SODA ACCU-PREP (SOD*09/17/2010 5 - Intolerance HYDROXYZINE 09/24/2013 14 - Other: See Comments Comments: Excess sedation NOVOCAIN (PROCAINE HCL) 01/08/2005 Comments: unresponsive and difficult to arose NSAIDS (NON-STEROIDAL ANTI-INFLAM*08/01/2007 8 - GI Upset PENICILLINS 01/08/2005 PREMARIN (CONJUGATED ESTROGENS) 05/23/2007 8 - GI Upset SULFA (SULFONAMIDE ANTIBIOTICS) 01/08/2005 Date Reviewed: 06/08/2023 Reviewed by: Ronnie Vidal APRN.[employer] - Fully Assessed Primary Visit Diagnosis:Left leg pain [M79.605] Prescriptions as of 10/24/2023 - benzonatate (TESSALON PERLES) 100 mg capsule Take 1 capsule by mouth three times a day as needed for cough for up to 12 doses. - clopidogrel (PLAVIX) 75 mg tablet - aspirin, enteric coated (ASPIRIN, ENTERIC COATED) 81 mg EC tablet Take 81 mg by mouth once daily. - escitalopram oxalate (LEXAPRO) 5 mg tablet Take 5 mg by mouth once daily. - calcium carb/vit D2/minerals (CALTRATE PLUS ORAL) Take 1 tablet by mouth twice daily. - cyanocobalamin, vitamin B-12, (B-12 DOTS ORAL) Take by mouth. - Bacillus coagulans (PROBIOTIC, B. COAGULANS, ORAL) Take by mouth. - vit calc,iron,folic ( #2 ORAL) Take by mouth. - oxyCODONE-acetaminophen (PERCOCET) 5-325 mg tablet Take 1 tablet by mouth every 4 hours as needed. - fluticasone (FLONASE) 50 mcg/actuation nasal spray Use 1 [place] in each nostril once daily. - calcium carbonate 600 mg-cholecalciferol 400 units (CALCIUM 600 + D) 600 mg(1,500mg) -400 unit tab Take 1 tablet by (more content not included)... Normal [facility] CNOVon 06-08-2023 CNOV Office Visit ([facility] ) ----- ESTHER HILL ([id number]) 1935 F Date Time Provider Department 06/08/23 10:15 AM RONNIE VIDAL [facility] During your visit today, we recorded the following information about you: Temperature Pulse Respiration Blood pressure 97.1 degrees 63/minute 18/minute 118/78 Weight 46.4 kg Ronnie Vidal APRN.CNP 06/08/2023 10:33 AM Signed This note was created using NoteWriter. Subjective Esther Hill is a 87 year old female. HPI Pt was up all night coughing. Review of Systems Constitutional: Negative for fever. HENT: Negative for rhinorrhea and sore throat. Respiratory: Positive for cough. Musculoskeletal: Positive for myalgias. Objective BP 118/78 Pulse 63 Temp 36.2 ?C (97.1 ?F) (Tympanic) Resp 18 Wt 46.4 kg (102 lb 4.7 oz) SpO2 98% BMI 18.71 kg/m? Physical Exam Vitals and nursing note reviewed. Constitutional: General: She is not in acute distress. Appearance: Normal appearance. She is not ill-appearing. HENT: Head: Normocephalic. Mouth/Throat: Mouth: Mucous membranes are moist. Eyes: Conjunctiva/sclera: Conjunctivae normal. Cardiovascular: Rate and Rhythm: Normal rate and regular rhythm. Pulmonary: Effort: Pulmonary effort is normal. Breath sounds: Normal breath sounds. Musculoskeletal: General: Normal range of motion. Cervical back: Normal range of motion. Skin: General: Skin is warm and dry. Neurological: General: No focal deficit present. Mental Status: She is alert. Psychiatric: Mood and Affect: Mood normal. Behavior: Behavior normal. Assessment and Plan ASSESSMENT/PLAN: 1. Acute cough - ICD9: 786.2, ICD10: R05.1 Patient has benign physical exam with unremarkable vital signs. I discussed with patient and family most likely viral presentation. I discussed possible chest x-ray and after discussion patient prefers not to have this done at this time. Patient was given prescription for Tessalon Perles and instructions to get plenty of rest and fluids and follow-up with PCP as needed. Patient comfortable with plan. TIMO Almanza Tim, APRN.CNP 06/08/2023 10:31 AM Signed RESPIRATORY INFECTION On exam I did not see any obvious signs that would be concerning for pneumonia. I do feel that your symptoms today are more consistent with a viral illness which should resolve in 4-8 days. GENERAL INFORMATION: An upper respiratory tract infection, or cold, is a viral infection of the airway passages. It can be caused by any one of almost 200 different viruses. Common symptoms include a runny or stuffy nose, sneezing, watery eyes, sore throat, cough, and slight fever. Colds are contagious, especially during the first 3 or 4 days and cannot be cured by antibiotics. They are spread by coughs, sneezes, and direct contact, especially [id number]. A respiratory tract infection usually clears up in a few days, but some people may be sick for a week or two. INSTRUCTIONS: 1. Be careful not to blow your nose too hard because this may cause a nosebleed. 2. Use a cool-mist humidifier (vaporizer) to increase air moisture. This will make it easier for you to breathe. Do not use hot steam. 3. Rest as much as possible and get plenty of sleep. 4. Wash your hands often, especially after you blow your nose. Cover your mouth and nose with a tissue when you sneeze or cough. 5. Drink plenty of clear fluids (8 glasses a day) such as water, fruit juice, tea, clear soups, and carbonated beverages. CONTACT YOUR DOCTOR IF : 1. Your fever lasts more than 3 days. 2. You have a sore throat that gets worse or you see white or yellow spots in your throat. 3. Your cough gets worse or lasts more than 10 days. 4. You develop a rash anywhere on your skin. 5. You have an earache or a headache. 6. You have thick greenish or yellowish discharge from your nose. RETURN IMMEDIATELY IF: 1. You cough up thick yellow, green, carey, or bloody sputum. 2. You have difficulty breathing, pain in your chest, or your skin or nails look carey or blue. 3. You have shaking chills or a temperature over 102 F (39 C). Allergies As of Date: 06/08/2023 Noted Allergy Reaction CIPRO (CIPROFLOXACIN) 02/17/2009 7 - Swelling CLIMARA PRO (ESTRADIOL-LEVONORGES*04/2007 2 - Rash ACETATE SALT 03/05/2015 4 - Hives ADHESIVE TAPE (ROSINS) 06/22/2010 2 - Rash 9 - Itching ESTRADIOL 05/23/2007 8 - GI Upset FLEET PHOSPHO-SODA ACCU-PREP (SOD*09/17/2010 5 - Intolerance HYDROXYZINE 09/24/2013 14 - Other: See Comments Comments: Excess sedation NOVOCAIN (PROCAINE HCL) 01/08/2005 Comments: unresponsive and difficult to arose NSAIDS (NON-STEROIDAL ANTI-INFLAM*08/01/2007 8 - GI Upset PENICILLINS 01/08/2005 PREMARIN (CONJUGATED ESTROGENS) 05/23/2007 8 - GI Upset SULFA (SULFONAMIDE ANTIBIOTICS) 01/08/2005 Date Reviewed: 06/08/2023 Reviewed by: Ronnie Vidal AP (more content not included)... Normal [facility] CNOVon 06-03-2023 CNOV Office Visit ([facility] ) ----- ESTHER HILL ([id number]) 1935 F Date Time Provider Department 06/03/23 12:45 PM DINORA KLEIN [facility] During your visit today, we recorded the following information about you: Temperature Pulse Respiration Blood pressure 97.5 degrees 70/minute 18/minute 125/70 Weight 46.2 kg Dinora Klein APRN.[employer] 06/03/2023 2:54 PM Signed This note was created using NoteWriter. Subjective Esther Hill is a 87 year old female. 87 year old female with PMH PVD, DJD, osteoporosis currently taking lisinopril, aspirin, and plavix presents today with acute onset right arm pain for 2 days. Patient was placing an item in a trunk when the lid closed unexpectedly and hit her arm. Did not fall and denies LOC. Right hand dominant. Pertinent positives include bruising, swelling, tenderness, and pain with movement. Pertinent negatives include numbness, tingling, weakness, neck pain, headache, dizziness, chest pain, and shortness of breath. The history is provided by the patient. Arm Pain The pain is present in the right hand, right elbow and right arm. This is a new problem. The current episode started in the past 7 days. There has been a history of trauma. The problem occurs constantly. The problem has been gradually worsening. The quality of the pain is described as sharp. The pain is at a severity of 9/10. The pain is severe. Associated symptoms include joint swelling. Pertinent negatives include no inability to bear weight, joint locking, limited range of motion, numbness or tingling. The symptoms are aggravated by activity. She has tried rest for the symptoms. The treatment provided no relief. Her past medical history is significant for osteoarthritis. PAST MEDICAL HISTORY Diagnosis Date ACUTE GASTRITIS [...] RESCJ AND ANAST 05/19/12 20cm ileum resection ESOPHAGOGASTRODUODENOSCOP Y TRANSORAL DIAGNOSTIC 06/10/2006 EGD HEMORRHOIDECTOMY INT AND [...] SURGICAL HISTORY OF bile duct surg @ [place] PAST SURGICAL HISTORY OF 03/2015 had vein [...] Crystal lens ALLERGIES Cipro [Ciprofloxacin], Climara Pro [Estradiol-Levonorgestrel ], Acetate Salt, Adhesive Tape (Rosins), Estradiol, Fleet Phospho-Soda Accu-Prep [Sodium Dyfgosnngh-Rlqenz-Vcu], Hydroxyzine, Novocain [Procaine Hcl], Nsaids (Non-Steroidal Anti-Inflammatory Drug), Penicillins, Premarin [Conjugated Estrogens], and Sulfa (Sulfonamide Antibiotics) MEDICATIONS aspirin, enteric coated (ASPIRIN, ENTERIC COATED) 81 mg EC tablet Take 81 (more content not included)... Normal [facility] No Panel Informationon 06-02 IMPRESSION: No acute osseous abnormality Social Service Worker: IBETH Transcribe Date/Time: Jun 03 2023 1:43P Dictated by : NJ GARZA MD This examination was interpreted and the report reviewed and electronically signed by: NJ GARZA MD on Jun 03 2023 1:48PM [facility] DIVISION OF RADIOLOGY Radiology Study observation (narrative) [facility] No Panel InformationOrdered By: Ccf Provider on 06-03-2023 [facility] XR FOREARM 2V AP/LAT RTon XR FOREARM 2V AP/LAT RT * * *Final Report* * * DATE OF EXAM: Jun 03 2023 1:40PM WOX [id number] - XR FOREARM 2V AP/LAT RT / PROCEDURE REASON: Pain of right upper extremity * * * * Physician Interpretation * * * * EXAMINATION: XR FOREARM 2V AP/LAT RT, XR HUMERUS 2V AP/LAT RT CLINICAL HISTORY: Right arm pain Technique: XR FOREARM 2V AP/LAT RT, XR HUMERUS 2V AP/LAT RT -- RIGHT with 2 views on 2 images Comparison: None RESULT: Right humerus: No acute fracture or dislocation. Acromioclavicular degenerative disease. Right forearm: No acute fracture or dislocation. Mild radiocarpal joint space narrowing. IMPRESSION: No acute osseous abnormality Social Service Worker: [facility] Transcribe Date/Time: Jun 03 2023 1:43P Dictated by : NJ GARZA MD This examination was interpreted and the report reviewed and electronically signed by: NJ GARZA MD on Jun 03 2023 1:48PM EST [id number] Normal [facility] XR HUMERUS 2V AP/LAT RTon XR HUMERUS 2V AP/LAT RT * * *Final Report* * * DATE OF EXAM: Jun 03 2023 1:40PM WOX [id number] - XR HUMERUS 2V AP/LAT RT / PROCEDURE REASON: Pain of right upper extremity * * * * Physician Interpretation * * * * EXAMINATION: XR FOREARM 2V AP/LAT RT, XR HUMERUS 2V AP/LAT RT CLINICAL HISTORY: Right arm pain Technique: XR FOREARM 2V AP/LAT RT, XR HUMERUS 2V AP/LAT RT -- RIGHT with 2 views on 2 images Comparison: None RESULT: Right humerus: No acute fracture or dislocation. Acromioclavicular degenerative disease. Right forearm: No acute fracture or dislocation. Mild radiocarpal joint space narrowing. IMPRESSION: No acute osseous abnormality Social Service Worker: [facility] Transcribe Date/Time: Jun 03 2023 1:43P Dictated by : NJ GARZA MD This examination was interpreted and the report reviewed and electronically signed by: NJ GARZA MD on Jun 03 2023 1:48PM EST [id number] Normal [facility] XR Humerus - right AP and La teralon 06-03-2023 * * *Final Report* * * DATE OF EXAM: Jun 03 2023 1:40PM WOX [id number] - XR HUMERUS 2V AP/LAT RT / PROCEDURE REASON: Pain of right upper extremity * * * * Physician Interpretation * * * * EXAMINATION: XR FOREARM 2V AP/LAT RT, XR HUMERUS 2V AP/LAT RT CLINICAL HISTORY: Right arm pain Technique: XR FOREARM 2V AP/LAT RT, XR HUMERUS 2V AP/LAT RT -- RIGHT with 2 views on 2 images Comparison: None RESULT: Right humerus: No acute fracture or dislocation. Acromioclavicular degenerative disease. Right forearm: No acute fracture or dislocation. Mild radiocarpal joint space narrowing. DIVISION OF RADIOLOGY Provider, [facility] - 06/03/2023 * * *Final Report* * * DATE OF EXAM: Jun 03 2023 1:40PM WOX 5355 - XR HUMERUS 2V AP/LAT RT / PROCEDURE REASON: Pain of right upper extremity * * * * Physician Interpretation * * * * EXAMINATION: XR FOREARM 2V AP/LAT RT, XR HUMERUS 2V AP/LAT RT CLINICAL HISTORY: Right arm pain Technique: XR FOREARM 2V AP/LAT RT, XR HUMERUS 2V AP/LAT RT -- RIGHT with 2 views on 2 images Comparison: None RESULT: Right humerus: No acute fracture or dislocation. Acromioclavicular degenerative disease. Right forearm: No acute fracture or dislocation. Mild radiocarpal joint space narrowing. IMPRESSION IMPRESSION: No acute osseous abnormality Social Service Worker: PSCB Transcribe Date/Time: Jun 03 2023 1:43P Dictated by : NJ GARZA MD This examination was interpreted and the report reviewed and electronically signed by: NJ GARZA MD on Jun 03 2023 1:48PM EST [facility] XR Radius and Ulna - right A P and Lateralon 06-03-2023 * * *Final Report* * * DATE OF EXAM: Jun 03 2023 1:40PM WOX 5342 - XR FOREARM 2V AP/LAT RT / PROCEDURE REASON: Pain of right upper extremity * * * * Physician Interpretation * * * * EXAMINATION: XR FOREARM 2V AP/LAT RT, XR HUMERUS 2V AP/LAT RT CLINICAL HISTORY: Right arm pain Technique: XR FOREARM 2V AP/LAT RT, XR HUMERUS 2V AP/LAT RT -- RIGHT with 2 views on 2 images Comparison: None RESULT: Right humerus: No acute fracture or dislocation. Acromioclavicular degenerative disease. Right forearm: No acute fracture or dislocation. Mild radiocarpal joint space narrowing. DIVISION OF RADIOLOGY Provider, [facility] - 06/03/2023 * * *Final Report* * * DATE OF EXAM: Jun 03 2023 1:40PM WOX 5342 - XR FOREARM 2V AP/LAT RT / PROCEDURE REASON: Pain of right upper extremity * * * * Physician Interpretation * * * * EXAMINATION: XR FOREARM 2V AP/LAT RT, XR HUMERUS 2V AP/LAT RT CLINICAL HISTORY: Right arm pain Technique: XR FOREARM 2V AP/LAT RT, XR HUMERUS 2V AP/LAT RT -- RIGHT with 2 views on 2 images Comparison: None RESULT: Right humerus: No acute fracture or dislocation. Acromioclavicular degenerative disease. Right forearm: No acute fracture or dislocation. Mild radiocarpal joint space narrowing. IMPRESSION IMPRESSION: No acute osseous abnormality Social Service Worker: [facility] Transcribe Date/Time: Jun 03 2023 1:43P Dictated by : NJ GARZA MD This examination was interpreted and the report reviewed and electronically signed by: NJ GARZA MD on Jun 03 2023 1:48PM [facility] XR THORACIC 2V AP/LATon 05-13 XR THORACIC 2V AP/LAT * * *Final Report* * * DATE OF EXAM: Jun 03 2023 1:40PM WOX 5262 - XR THORACIC 2V AP/LAT / PROCEDURE REASON: Acute midline thoracic back pain * * * * Physician Interpretation * * * * EXAMINATION: XR THORACIC 2V AP/LAT CLINICAL HISTORY: Back pain Technique: XR THORACIC 2V AP/LAT -- NOT APPLICABLE with 2 views on 3 images Comparison: X-ray thoracic spine 11/07/2015 RESULT: Generalized osteopenia. There is a compression fracture of the vertebral body of L1 which has developed since the prior study. Alignment is satisfactory. Mild multilevel degenerative disc disease. IMPRESSION: Compression fracture of the vertebral body of L1 has developed since the prior study Social Service Worker: IBETH Transcribe Date/Time: Jun 03 2023 1:40P Dictated by : NJ GARZA MD This examination was interpreted and the report reviewed and electronically signed by: NJ GARZA MD on Jun 03 2023 1:43PM EST [id number] Normal [facility] XR Thoracic spine AP and Lat eralon 06-03-2023 IMPRESSION: Compression fracture of the vertebral body of L1 has developed since the prior study Social Service Worker: IBETH Transcribe Date/Time: Jun 03 2023 1:40P Dictated by : NJ GARZA MD This examination was interpreted and the report reviewed and electronically signed by: NJ GARZA MD on Jun 03 2023 1:43PM EST DIVISION OF RADIOLOGY * * *Final Report* * * DATE OF EXAM: Jun 03 2023 1:40PM WOX 5262 - XR THORACIC 2V AP/LAT / PROCEDURE REASON: Acute midline thoracic back pain * * * * Physician Interpretation * * * * EXAMINATION: XR THORACIC 2V AP/LAT CLINICAL HISTORY: Back pain Technique: XR THORACIC 2V AP/LAT -- NOT APPLICABLE with 2 views on 3 images Comparison: X-ray thoracic spine 11/07/2015 RESULT: Generalized osteopenia. There is a compression fracture of the vertebral body of L1 which has developed since the prior study. Alignment is satisfactory. Mild multilevel degenerative disc disease. DIVISION OF RADIOLOGY Provider, [facility] - 06/03/2023 * * *Final Report* * * DATE OF EXAM: Jun 03 2023 1:40PM WOX 5262 - XR THORACIC 2V AP/LAT / PROCEDURE REASON: Acute midline thoracic back pain * * * * Physician Interpretation * * * * EXAMINATION: XR THORACIC 2V AP/LAT CLINICAL HISTORY: Back pain Technique: XR THORACIC 2V AP/LAT -- NOT APPLICABLE with 2 views on 3 images Comparison: X-ray thoracic spine 11/07/2015 RESULT: Generalized osteopenia. There is a compression fracture of the vertebral body of L1 which has developed since the prior study. Alignment is satisfactory. Mild multilevel degenerative disc disease. IMPRESSION IMPRESSION: Compression fracture of the vertebral body of L1 has developed since the prior study Social Service Worker: IBETH Transcribe Date/Time: Jun 03 2023 1:40P Dictated by : NJ GARZA MD This examination was interpreted and the report reviewed and electronically signed by: NJ GARZA MD on Jun 03 2023 1:43PM [facility] CNOVon 12-25-2022 CNOV Office Visit ([facility] ) ----- ESTHER HILL ([id number]) 1935 F Date Time Provider Department 12/25/22 2:15 PM TRACEY VALLE [facility] During your visit today, we recorded the following information about you: Tracey Valle APRN.[facility] 12/25/2022 2:48 PM Signed Subjective HPI Esther Mirza Sergio is a 87 year old female who [...] RESCJ AND ANAST 05/19/12 20cm ileum resection ESOPHAGOGASTRODUODENOSCOP Y TRANSORAL DIAGNOSTIC 06/10/2006 EGD HEMORRHOIDECTOMY INT AND [...] SURGICAL HISTORY OF bile duct surg @ [place] PAST SURGICAL HISTORY OF 03/2015 had vein [...] Crystal lens ALLERGIES Cipro [Ciprofloxacin], Climara Pro [Estradiol-Levonorgestrel ], Acetate Salt, Adhesive Tape (Rosins), Estradiol, Fleet Phospho-Soda Accu-Prep [Sodium Agdoepvifw-Ykyjoy-Uxr], Hydroxyzine, Novocain [Procaine Hcl], Nsaids (Non-Steroidal Anti-Inflammatory [...] (FLONASE) 50 mcg/actuation nasal spray Use 1 [place] in each nostril once daily. ONE DAILY MULTIVITAMIN ORAL Take by mouth once daily. vitamins oxyCODONE-acetaminophen (more content not included)... Normal [facility] CNOVon 12-24-2022 CNOV Office Visit ([facility] ) ----- ESTHER HILL ([id number]) 1935 F Date Time Provider Department 12/24/22 6:45 PM TRACEY VALLE [facility] During your visit today, we recorded the following information about you: Temperature Pulse Respiration Blood pressure 98.4 degrees 84/minute 18/minute 126/78 Weight 45.8 kg Tracey aVlle APRN.[employer] 12/24/2022 7:03 PM Signed Subjective Laceration Estherkang Hill is a 87 year old female who [...] RESCJ AND ANAST 05/19/12 20cm ileum resection ESOPHAGOGASTRODUODENOSCOP Y TRANSORAL DIAGNOSTIC 06/10/2006 EGD HEMORRHOIDECTOMY INT AND XTRNL 2/> COLUMN/ELIAZAR 2006 LAPAROSCOPY COLECTOMY PARTIAL W/ANASTOMOSIS 08/20/08 for diverticulitis, appendectomy at same time LIGJ DIVJ AND/EXCJ VARICOSE VEIN CLUSTER 1 LEG 1970s Varicose Vein Surgery right leg PAST SURGICAL HISTORY OF 1997 and 2006 hiatal hernia surgery x 2 PAST SURGICAL HISTORY OF 200? left breast cyst bengin PAST SURGICAL HISTORY OF bile duct surg @ [place] PAST SURGICAL HISTORY OF 03/2015 had vein [...] Crystal lens ALLERGIES Cipro [Ciprofloxacin], Climara Pro [Estradiol-Levonorgestrel ], Acetate Salt, Adhesive Tape (Rosins), Estradiol, Fleet Phospho-Soda Accu-Prep [Sodium Nufohyeyud-Ltlrwi-Kbd], Hydroxyzine, Novocain [Procaine Hcl], Nsaids (Non-Steroidal Anti-Inflammatory [...] oxalate (LEXAPRO) 5 mg tablet Take 5 (more content not included)... Normal [facility] No Panel Informationon 08-26 IMPRESSION: No acute osseous abnormality Social Service Worker: IBETH Transcribe Date/Time: Aug 26 2022 2:39P Dictated by : NJ GARZA MD This examination was interpreted and the report reviewed and electronically signed by: NJ GARZA MD on Aug 26 2022 2:43PM [facility] DIVISION OF RADIOLOGY Radiology Study observation (narrative) [facility] No Panel InformationOrdered By: Ccf Provider on 08-26-2022 [facility] XR Ankle - right AP and Late ral and obliqueon 08-26-2022 * * *Final Report* * * DATE OF EXAM: Aug 26 2022 2:36PM WOX 5297 - XR ANKLE 3V AP/LAT/OBL RT / PROCEDURE REASON: Acute right ankle pain * * * * Physician Interpretation * * * * EXAMINATION: XR FOOT 3V AP/LAT/OBL RT, XR ANKLE 3V AP/LAT/OBL RT CLINICAL HISTORY: Right lower extremity pain Technique: XR FOOT 3V AP/LAT/OBL RT, XR ANKLE 3V AP/LAT/OBL RT -- RIGHT with 3 views on 3 images Comparison: X-ray right foot 08/17/2022 RESULT: No acute fracture or dislocation. Joint spaces are maintained. DIVISION OF RADIOLOGY Provider, Zo Mcgee [facility] - 08/26/2022 * * *Final Report* * * DATE OF EXAM: Aug 26 2022 2:36PM WOX 5297 - XR ANKLE 3V AP/LAT/OBL RT / PROCEDURE REASON: Acute right ankle pain * * * * Physician Interpretation * * * * EXAMINATION: XR FOOT 3V AP/LAT/OBL RT, XR ANKLE 3V AP/LAT/OBL RT CLINICAL HISTORY: Right lower extremity pain Technique: XR FOOT 3V AP/LAT/OBL RT, XR ANKLE 3V AP/LAT/OBL RT -- RIGHT with 3 views on 3 images Comparison: X-ray right foot 08/17/2022 RESULT: No acute fracture or dislocation. Joint spaces are maintained. IMPRESSION IMPRESSION: No acute osseous abnormality Social Service Worker: [facility] Transcribe Date/Time: Aug 26 2022 2:39P Dictated by : NJ GARZA MD This examination was interpreted and the report reviewed and electronically signed by: NJ GARZA MD on Aug 26 2022 2:43PM [facility] XR Foot - right AP and Later al and obliqueon 08-26-2022 * * *Final Report* * * DATE OF EXAM: Aug 26 2022 2:36PM WOX 5337 - XR FOOT 3V AP/LAT/OBL RT / PROCEDURE REASON: multiple diagnoses * * * * Physician Interpretation * * * * EXAMINATION: XR FOOT 3V AP/LAT/OBL RT, XR ANKLE 3V AP/LAT/OBL RT CLINICAL HISTORY: Right lower extremity pain Technique: XR FOOT 3V AP/LAT/OBL RT, XR ANKLE 3V AP/LAT/OBL RT -- RIGHT with 3 views on 3 images Comparison: X-ray right foot 08/17/2022 RESULT: No acute fracture or dislocation. Joint spaces are maintained. DIVISION OF RADIOLOGY Provider, [facility] - 08/26/2022 * * *Final Report* * * DATE OF EXAM: Aug 26 2022 2:36PM WOX 5337 - XR FOOT 3V AP/LAT/OBL RT / PROCEDURE REASON: multiple diagnoses * * * * Physician Interpretation * * * * EXAMINATION: XR FOOT 3V AP/LAT/OBL RT, XR ANKLE 3V AP/LAT/OBL RT CLINICAL HISTORY: Right lower extremity pain Technique: XR FOOT 3V AP/LAT/OBL RT, XR ANKLE 3V AP/LAT/OBL RT -- RIGHT with 3 views on 3 images Comparison: X-ray right foot 08/17/2022 RESULT: No acute fracture or dislocation. Joint spaces are maintained. IMPRESSION IMPRESSION: No acute osseous abnormality Social Service Worker: PSCNaty Transcribe Date/Time: Aug 26 2022 2:39P Dictated by : NJ GARZA MD This examination was interpreted and the report reviewed and electronically signed by: NJ GARZA MD on Aug 26 2022 2:43PM EST [facility] XR FOOT GENERAL 3V AP/LAT/OB L RIGHTon 08-17-2022 [facility] XR Foot - right AP and Later al and obliqueon 08-17-2022 IMPRESSION: No acute bony finding. Social Service Worker: PSCB Transcribe Date/Time: Aug 17 2022 6:25P Dictated by : AURELIO VENCES MD This examination was interpreted and the report reviewed and electronically signed by: AURELIO VENCES MD on Aug 17 2022 7:13PM [facility] DIVISION OF RADIOLOGY * * *Final Report* * * DATE OF EXAM: Aug 17 2022 6:11PM WOX 5337 - XR FOOT 3V AP/LAT/OBL RT / PROCEDURE REASON: Foot injury, right, initial encounter * * * * Physician Interpretation * * * * Right foot HISTORY: 86 years old Clinical information: Foot injury, right, initial encounter hit her right foot on bench 2 days ago TECHNIQUE: Images: XR FOOT 3V AP/LAT/OBL RT Comparison: None. RESULT: Findings: No fracture or dislocation is evident. DIVISION OF RADIOLOGY Provider, Phyllis Everardo Galan - 08/17/2022 * * *Final Report* * * DATE OF EXAM: Aug 17 2022 6:11PM WOX 5337 - XR FOOT 3V AP/LAT/OBL RT / PROCEDURE REASON: Foot injury, right, initial encounter * * * * Physician Interpretation * * * * Right foot HISTORY: 86 years old Clinical information: Foot injury, right, initial encounter hit her right foot on bench 2 days ago TECHNIQUE: Images: XR FOOT 3V AP/LAT/OBL RT Comparison: None. RESULT: Findings: No fracture or dislocation is evident. IMPRESSION IMPRESSION: No acute bony finding. Social Service Worker: PSCB Transcribe Date/Time: Aug 17 2022 6:25P Dictated by : AURELIO VENCES MD This examination was interpreted and the report reviewed and electronically signed by: AURELIO VENCES MD on Aug 17 2022 7:13PM EST [facility] Radiology Study observation (narrative) [facility] XR Foot - right AP and Later al and obliqueOrdered By: Ccf Provider on 08-17-2022 [facility] PANCREATIC ELASTASE, FECAL [ CCL]on 05-24-2020 PANCREATIC ELASTASE, FECAL [CCL] Normal [facility] Comment on above: Result Comment: _PAN CREATIC ELASTASE, FECAL [CCL]_ SEE SEPARATE REPORT Performed By: #### 2 [id number] #### [place] [id number] GI PARASITE PANEL BY PCR [CC L]on 05-15-2020 GI PARASITE PANEL BY PCR [CCL] Normal [facility] Comment on above: Result Comment: ELEAZAR [place] WILD13 IN CCL. ARUP CODE: GI PARAPCR Performed By: #### 2 [id number] #### [place] [id number] Panc Elastase, Fecalon 05-09 Panc Elastase, Fecal 345 ug/g Normal >=100 [facility] Comment on above: Performed By: #### C DIALLO #### [facility] Microbiology - [address] [place] [id number] CALPROTECTIN, FECAL [CCL]on 05-08-2020 Calprotectin Comment INTERPRETIVE INFORMATION: Normal [facility] Comment on above: Result Comment: INTE RPRETIVE INFORMATION: Calprotectin, Fecal <50.0 mg/kg : Normal 50.0-120.0 mg/kg: Borderline. Test should be re-evaluated in 4-6 weeks. >120.0 mg/kg : Abnormal [facility] [address] [place] [address] Stan Mauricio III, M.D. [id number] Performed By: #### 2 77971 #### [address] [address] Calprotectin Interp Normal Normal [facility] Comment on above: Performed By: #### 2 74605 #### [facility],[address] [place] [address] Protein [Mass/Vol] g/dL Normal <50.0 [facility] Comment on above: Performed By: #### 2 25704 #### [facility],[address] [place] [address] Calprotectin, Fecalon 2020 Calprotectin Comment Normal [facility] Comment on above: Result Comment: INTE RPRETIVE INTERPRETIVE INFORMATION: Calprotectin, Fecal <50.0 mg/kg : Normal 50.0-120.0 mg/kg: Borderline. Test should be re-evaluated in 4-6 weeks. >120.0 mg/kg : Abnormal INFORMATION: INTERPRETIVE INFORMATION: Calprotectin, Fecal <50.0 mg/kg : Normal 50.0-120.0 mg/kg: Borderline. Test should be re-evaluated in 4-6 weeks. >120.0 mg/kg : Abnormal Performed By: #### C DIALLO #### [facility] Microbiology - [address] [place] [address] Calprotectin Interp NORMAL Normal [facility] Comment on above: Performed By: #### C DIALLO #### [facility] Microbiology - [address] [place], [place] [id number] Protein [Mass/Vol] g/dL Normal <50.0 [facility] Comment on above: Performed By: #### C DIALLO #### [facility] Microbiology - [address] [place] [id number] CULTURE STOOLon 05-05-2020 CULTURE STOOL CULTURE STOOL _STOOL CULTURE_ CAMPYLOBACTER Not detected SALMONELLA Not Detected YERSINIA Not detected SHIGELLA Not Detected [id number] M I C R O B I O L O G Y R E P O R T FINAL -------- Antimicrobial Susceptibility and Organism Identification Report --------- Specimen Number : [id number] Requested : 05/05/20 Specimen Source : STOOL Collected : 05/05/20 13:00 [place] of Isolation : OUTPATIENT Received : 05/05/20 13:00 Requesting Physician : SHANNAN ------- Patient/Specimen Tests and Comments Specimen Comments --------- --------- FINAL REPORT: SALMONELLA:NEGATIVE SHIGELLA:NEGATIVE YERSINIA:NEGATIVE CAMPYLOBACTER:NEGATIVE ------- Tech : _ Source : STOOL ID # : [id number] FINAL Report Date : / / : Collected : 05/05/20 13:00 [id number] Normal [facility] Comment on above: Performed By: #### 2 42195 #### [facility],[address] [place] [address]233 OCCULT BLOOD STOOL (CANCER S CREENING)on 05-05-2020 OCCULT BLOOD STOOL Normal [facility] Comment on above: Result Comment: NEGA TIVE NEGATIVE NEGATIVE Performed By: #### 2 98688 #### [facility],[address] [place] [address]60 MR LUMBAR SP WO CONTRASTon 0 03-21-2020 MR LUMBAR SP WO CONTRAST [address] [address] Patient: ESTHER HILL Phone#: : 1935 Age: 84 Gender: F Pt. Type: Out Account: [id number] Location: [facility] Ordering: DR. ANDREINA GALLEGOS Exam Date: 03/21/2020/13:00 Family Phys: Charge Code: 026508 Physician: [facility] Order #: [id number] DLP Dose#: PROCEDURE: MRI LUMBAR SPINE WITHOUT CONTRAST COMPARISON: None. INDICATIONS: Spondylosis with radiculopathy. TECHNIQUE: A variety of imaging planes and parameters were utilized for visualization of suspected pathology. FINDINGS: PARASPINAL AREA: Normal with no visible mass. BONES: No fracture, pars defect, or osseous lesion. There is anterior wedging at T12 and similar to that seen on prior CT T of November 18, 2018. There is minimal retrolisthesis. Annular disc bulging is present. There is mild narrowing the spinal canal. Bony hypertrophy is present at the articular facettes. CORD/CAUDA EQUINA: Normal caliber, contour, and signal intensity. LUMBAR DISC LEVELS: L1-L2: Mild annular disc bulging is present. There is effacement of the anterior aspect of the thecal sac. Dorsal bright signal is present consistent with annular rupture. There is moderate narrowing the right foramen. L2-L3: Annular disc bulging is present. There is bony hypertrophy at the articular facettes. There is thickening the ligamentum flavum. There is mild to moderate right foraminal narrowing. There is mild left foraminal narrowing. L3-L4: Annular disc bulging is present. There is bony hypertrophy at the articular facettes. There is moderate spinal canal narrowing. There is moderate to severe right foraminal narrowing. There is moderate left foraminal narrowing. L4-L5: Disc space narrowing is present. There is abnormal marrow signal at the endplates consistent with Modic type 1 marrow changes. There is severe bilateral foraminal narrowing. There is minimal anterolisthesis. L5-S1: Disc space narrowing is present. There is disc degeneration. CONCLUSION: No acute disease. Continued Report - Page 2 of 2 Patient: ESTHER HILL Phone#: : 1935 Age: 84 Gender: F Pt. Type: Out Account: [id number] Location: [facility] Ordering: DR. ANDREINA GALLEGOS Exam Date: 03/21/2020/13:00 Family Phys: Charge Code: 584062 Physician: [facility] Order #: [id number] DLP Dose#: 1. Multilevel degenerative change. There is foraminal impingement most marked at L3-4 and L4-5. 2. Anterior wedging at T12 is present and stable since November 18, 2018. Dictated by: Ritika Baugh MD on 03/21/2020 at 13:45 Approved by: Ritika Baugh MD on 03/21/2020 at 13:56 Normal [facility] CBC + DIFFon 03-19-2020 Basophils (Bld) [#/Vol] 0.10 x10EE3/UL Normal 0.00 - 0.10 [facility] Comment on above: Performed By: #### 2 49353 #### [facility],[address] [place] [address] Basophils/100 WBC (Bld) 0.9 % Normal 0.0 - 2.0 [facility] Comment on above: Performed By: #### 2 40838 #### [place] [id number] CBC + DIFF Normal [facility] Comment on above: Result Comment: CBC- COMPLETE BLOOD COUNT Performed By: #### 2 69909 #### [facility],[address] [place], [place] [id number] Eosinophils (Bld) [#/Vol] 0.10 x10EE3/UL Normal 0.00 - 0.50 [facility] Comment on above: Performed By: #### 2 46205 #### [facility],[address] [place], [place] [id number] Eosinophils/100 WBC (Bld) 1.0 % Normal 0.0 - 7.0 [facility] Comment on above: Performed By: #### 2 94688 #### [facility],[address] [place], [place] [id number] Erythrocyte distribution width (RBC) [Ratio] 13.6 % Normal 12.0 - 15.6 [facility] Comment on above: Performed By: #### 2 89646 #### [facility],[address] [place], [place] [phone] Hematocrit (Bld) [Volume fraction] 34.0 % Normal 34.0 - 46.0 [facility] Comment on above: Performed By: #### 2 99050 #### [facility],[address] [place] [address] Hemoglobin (Bld) [Mass/Vol] 11.8 g/dL Low 12.0 - 16.0 [facility] Comment on above: Performed By: #### 2 74225 #### [facility],[address] [place] [address] Lymphocytes (Bld) [#/Vol] 1.60 x10EE3/UL Normal 0.80 - 2.80 [facility] Comment on above: Performed By: #### 2 23360 #### [facility],[address] [place] [address] Lymphocytes/100 WBC (Bld) 25.8 % Normal 20.0 - 45.0 [facility] Comment on above: Performed By: #### 2 53646 #### [facility],[address] [place] [address] MANUAL DIFF N/A Normal [facility] Comment on above: Performed By: #### 2 50461 #### [facility],[address] [place] [address] 19358 MCH (RBC) [Entitic mass] 31 pg Normal 27 - 33 [facility] Comment on above: Performed By: #### 2 58558 #### [facility],[address] [place] [address] MCHC (RBC) [Mass/Vol] 35 X10 3 Normal 32 - 36 [facility] Comment on above: Performed By: #### 2 66400 #### [facility],[address] [place] [address] 81647 MCV (RBC) [Entitic vol] 89 fL Normal 80 - 99 [facility] Comment on above: Performed By: #### 2 89718 #### [facility],[address] [place] [address] 48044 Monocytes (Bld) [#/Vol] 0.70 x10EE3/UL Normal 0.20 - 1.00 [facility] Comment on above: Performed By: #### 2 29608 #### [facility],[address] [place] [address] MONOS % 10.6 % High 0.0 - 10.0 [facility] Comment on above: Performed By: #### 2 10743 #### [facility],[address] [place] [address] Morphology [place] (Bld) [Interp] N/A Normal [facility] Comment on above: Result Comment: {CD] Performed By: #### 2 58225 #### [address] [address] Neutrophils (Bld) [#/Vol] 3.90 x10EE3/UL Normal 1.50 - 7.10 [facility] Comment on above: Performed By: #### 2 05308 #### [facility],[address] [place] [address] Neutrophils/100 WBC (Bld) 61.7 % Normal 46.0 - 76.0 [facility] Comment on above: Performed By: #### 2 59682 #### [address] [address] Platelet mean volume (Bld) [Entitic vol] 7.0 fL Normal 6.6 - 10.5 [facility] Comment on above: Result Comment: AUTO MATED DIFFERENTIAL Performed By: #### 2 90555 #### [address] [address] Platelets (Bld) [#/Vol] 360 x10EE3/UL Normal 150 - 450 [facility] Comment on above: Performed By: #### 2 73188 #### [address] [address] RBC (Bld) [#/Vol] 3.83 x 10EE6/UL Low 4.10 - 5.30 [facility] Comment on above: Performed By: #### 2 67694 #### [address] [address] WBC (Bld) [#/Vol] 6.3 x 10EE3/UL Normal 4.5 - 10.8 [facility] Comment on above: Performed By: #### 2 39554 #### [facility],[address] [place] [address] CMP with eGFRon 03-19-2020 Age - Reported 84 years Normal [facility] Comment on above: Performed By: #### 2 69307 #### [address] [address] Albumin [Mass/Vol] 3.6 g/dL Normal 3.4 - 5.0 [facility] Comment on above: Performed By: #### 2 12914 #### [facility],[address] [place] [address] 47536 Albumin/Globulin [Mass ratio] 1.2 {ratio} Normal 0.9 - 1.6 [facility] Comment on above: Performed By: #### 2 58272 #### [facility],[address] [place] [address] 34779 ALK PHOS 91 U/L Normal 46 - 116 [facility] Comment on above: Performed By: #### 2 93405 #### [facility],[address] [place] [address] 14744 ALT/SGPT 31 U/L Normal 14 - 59 [facility] Comment on above: Performed By: #### 2 22777 #### [facility],[address] [place] [address]4747 Anion gap [Moles/Vol] 10 mmol/L Normal 10 - 20 [facility] Comment on above: Performed By: #### 2 47903 #### [facility],[address] [place] [address] 69668 AST/SGOT 23 U/L Normal 13 - 39 [facility] Comment on above: Performed By: #### 2 74911 #### [facility],[address] [place] [address]856 B/C RATIO 23 ratio Normal 0 - 30 [facility] Comment on above: Performed By: #### 2 60849 #### [facility],[address] [place] [address] 85419 Bilirubin [Mass/Vol] 0.4 mg/dL Normal 0.2 - 1.0 [facility] Comment on above: Performed By: #### 2 97316 #### [facility],[address] [place] [address] 34065 Calcium [Mass/Vol] 8.8 mg/dL Normal 8.5 - 10.1 [facility] Comment on above: Performed By: #### 2 39052 #### [facility],[address] [place] [address] 60480 Chloride [Moles/Vol] 105 mmol/L Normal 98 - 107 [facility] Comment on above: Performed By: #### 2 35137 #### [facility],[address] [place] [address] 26149 CO2 [Moles/Vol] 30.8 mmol/L Normal 21.0 - 32.0 [facility] Comment on above: Performed By: #### 2 69369 #### [place] [address] Creatinine [Mass/Vol] 0.6 mg/dL Normal 0.5 - 1.0 [facility] Comment on above: Performed By: #### 2 92486 #### [address] [address] GFR/1.73 sq M predicted among non-blacks MDRD (S/P/Bld) [Vol rate/Area] Normal [facility] Comment on above: Result Comment: COMP REHENSIVE METABOLIC PANEL Performed By: #### 2 58255 #### [address] [address] GFR/1.73 sq M predicted among non-blacks MDRD (S/P/Bld) [Vol rate/Area] mL/min/{1.73_m2} Normal 60 - 999 [facility] Comment on above: Result Comment: ACCO RDING TO THE NATIONAL KIDNEY DISEASE EDUCATION PROGRAM(NKDE), A NORMAL eGFR IS A VALUE GREATER THAN OR EQUAL TO 60 ML/MIN/1.73 SQ METERS. CHRONIC KIDNEY DISEASE: <60mL/MIN/1.73 SQ METERS KIDNEY FAILURE: <15mL/MIN/1.73 SQ METERS THIS TEST SHOULD ONLY BE USED FOR PATIENTS 18 YEARS OF AGE AND OLDER. Performed By: #### 2 75075 #### [place] [id number] Globulin (S) [Mass/Vol] 3.1 g/dL Normal 1.5 - 3.8 [facility] Comment on above: Performed By: #### 2 48819 #### [facility],[address] [place] [address]3451 Glucose [Mass/Vol] 94 mg/dL Normal 74 - 106 [facility] Comment on above: Performed By: #### 2 36216 #### [facility],[address] [place] [address]86 Potassium [Moles/Vol] 3.4 mmol/L Low 3.5 - 5.1 [facility] Comment on above: Performed By: #### 2 69614 #### [facility],[address] [place] [address] 20587 Protein [Mass/Vol] 6.7 g/dL Normal 6.4 - 8.2 [facility] Comment on above: Performed By: #### 2 48034 #### [facility],[address] [place] [address] 08487 Sodium [Moles/Vol] 142 mmol/L Normal 136 - 145 [facility] Comment on above: Performed By: #### 2 11437 #### [facility],[address] [place] [address] 35340 Urea nitrogen [Mass/Vol] 14 mg/dL Normal 7 - 18 [facility] Comment on above: Performed By: #### 2 95533 #### [facility],[address] [place] [address] CHEST W/O CONTRASTon 09-11 CT CHEST W/O CONTRAST [place] [address] Patient: ESTHER HILL Phone#: : 1935 Age: 83 Gender: F Pt. Type: Out Account: [id number] Location: 052 Ordering: [employer] Exam Date: 09/21/2019/12:53 Family Phys: VINITA GANT Charge Code: [id number] Physician: [facility] Order #: [id number] DLP Dose#: PROCEDURE: CT CHEST WITHOUT CONTRAST COMPARISON: [facility], CT, ABDOMEN/PELVIS W CON, 11/18/2018, 11:02. [facility], CT, CHEST PE W CON, 12/06/2013, 19:22. [facility], CT, CHEST PE W CON, 09/20/2016, 13:28. [facility], CT, CHEST PE W CON, 03/17/2017, 20:17. INDICATIONS: Trauma TECHNIQUE: CT images were created without the administration of contrast material. All CT scans at this facility use dose modulation, iterative reconstruction, and/or weight based dosing when appropriate to reduce radiation dose to as low as reasonably achievable. IV CONTRAST: No IV contrast used,ml TOTAL DOSE: 3.0 CTDIvol(mGy) FINDINGS: LUNGS: In the right upper lobe there is focal bronchiectasis with adjacent soft tissue and spiculations, series 3, image 12. The area involved measures 4.0 x 0.8 x 1.6 cm. Scarring has been present in this area on prior CTs however the soft tissue and spiculated appearance is new. There is evidence of air trapping, consistent with emphysematous changes. VASCULATURE: Unremarkable in size. MARCY: Limited evaluation for adenopathy in the absence of contrast. MEDIASTINUM: Normal. No mass or adenopathy. CARDIAC: Normal. No enlargement, pericardial thickening, or significant calcification. PLEURA: Normal. No mass or effusion. AORTA: Normal. No aneurysm. CHEST WALL: Normal. No mass or axillary adenopathy. LIMITED ABDOMEN: There is evidence of prior gastric surgery. Continued Report - Page 2 of 2 Patient: ESTHER HILL Phone#: : 1935 Age: 83 Gender: F Pt. Type: Out Account: [id number] Location: 052 Ordering: VINITA [employer] Exam Date: 09/21/2019/12:53 Family Phys: VINITA GANT Charge Code: [id number] Physician: [facility] Order #: [id number] DLP Dose#: BONES: There is diffuse bony demineralization. There is stable compression deformity of T12. There is minimal anterolisthesis of T11 on T12 and minimal retrolisthesis of T12 on L1. OTHER: Negative. CONCLUSION: 1. Right upper lobe bronchiectasis with associated spiculated soft tissue. Scar was previously seen in this location however the spiculated soft tissue is new. Recommend CT in 3 months or PET-CT evaluation. Dictated by: Caitlyn Amaya MD on 09/21/2019 at 16:30 Approved by: Caitlyn Amaya MD on 09/21/2019 at 16:30 Normal [facility] SHOULDER COMPLETE RTon 09-20 SHOULDER COMPLETE RT [place] [address] Patient: ESTHER HILL. Phone#: : 1935 Age: 83 Gender: F Pt. Type: Out Account: [id number] Location: 2 Ordering: VINITA GANT Exam Date: 09/21/2019/13:02 Family Phys: VINITA GANT Charge Code: [id number] Physician: [facility] Order #: [id number] DLP Dose#: PROCEDURE: X-RAY SHOULDER COMPLETE RT MIN 2 VIEWS COMPARISON: None. INDICATIONS: Trauma FINDINGS: BONES: Diffuse bony demineralization. There is spurring of the inferior humeral head. No acute abnormality. SOFT TISSUES: Negative. No visible soft tissue swelling. EFFUSION: None visible. OTHER: Negative. CONCLUSION: 1. No acute osseous abnormality Dictated by: Caitlyn Amaya MD on 09/21/2019 at 15:07 Approved by: Caitlyn Amaya MD on 09/21/2019 at 15:07 Normal [facility] EMERGENCY REPORTon 0 EMERGENCY REPORT [facility] EMERGENCY ROOM REPORT NAME ACCOUNT SEX AGE ADMIT DISCHARGE PT MED. RECORD# NUMBER DATE DATE TYPE SERGIO [id number] F 83 08/24/19 08/25/19 3 ESTHER Mirza [id number] ROOM: ER DATE OF : 1935 DICTATING PHYSICIAN: Louis Stanley CHIEF COMPLAINT/HISTORY OF PRESENT ILLNESS: This is an 83-year-old white female states that she was talking to her daughter this morning and told her she had only just urinated a little bit and her daughter ended up talking to Dr. Gant and they were concerned that the patient might be dehydrated. The patient states that since this morning she has urinated 2 or 3 times today. She has denied any burning or frequency with urination. She has denied any vomiting or diarrhea and she denies any pain anywhere. She denies any sweats or chills. Her states that yesterday she had a fever of 101.3, but today her temperature has been 98.3 all day today. Presently the patient denies any complaints to me. PAST MEDICAL HISTORY: Denied. PAST SURGICAL HISTORY: Cholecystectomy, hernia repair, hysterectomy and she has had a right hip replacement last year by Dr. Pollard. ALLERGIES: No known drug allergies. SOCIAL HISTORY: She is not a smoker. Denies any use of alcohol or illicit drugs. Lives at home with family. PCP is Dr. Gant. REVIEW OF SYSTEMS: Denies any chest pain, shortness of breath, cough, sputum, wheezing, abdominal pain, nausea, vomiting, diarrhea, constipation, melena, hematochezia, headache, numbness, unsteady gait, weakness, neck or back pain, joint pain, skin rashes or swelling, hives, hayfever, swollen glands. Further review of systems is negative. PHYSICAL EXAMINATION: Blood pressure 123/83, pulse 98, respiratory rate is 16, temperature 97.9, pulse oximetry 96% on room air. Weight 112 pounds. The patient is alert and oriented x3. Presently appears in no acute distress. She is pleasant and cooperative. HEENT: Head appears atraumatic. Pupils are equal and reactive to light. Red reflex intact bilaterally. Extraocular muscles are intact. No conjunctival injection. No scleral icterus or lid edema. Ears: TMs intact bilaterally. No erythema noted. No external auditory canal edema or bleeding. Nose exhibits no rhinorrhea or epistaxis. Mouth: Mucous membranes are mildly dry. No pharyngeal erythema. Uvula is midline and elevates. Neck is supple. Trachea is midline. No JVD or lymphadenopathy. No posterior cervical tenderness. No nuchal rigidity. Lungs are clear to auscultation bilaterally. No Page 1 of 2 ESTHER HILL Emergency Room Report SETHER HILL : 1935 adventitious sounds are noted. No accessory muscle use noted. CVS: Heart rate and rhythm is regular. No murmur noted. Abdomen is soft and nontender with normoactive bowel sounds x4 quadrants. No guarding or rigidity. No rebound. No palpable abdominal masses. No hepatosplenomegaly. Back exhibits no midline or paraspinal region tenderness. No increased paraspinal muscle rigidity. Negative Frank sign. Extremities: No edema or cyanosis. Peripheral pulses are intact. No motor or sensory deficits are noted. Hand scrum project manager are strong, symmetric. Capillary refill less than 2 seconds. Peripheral pulses intact. Neurologic examination shows the patient to be alert and oriented x4. No motor or sensory deficits are noted. Normal speech. EMERGENCY DEPARTMENT COURSE AND TREATMENT: Presently I am going to obtain some screening blood work and a urinalysis. The patient was not sure that she could give me a urine right now so we will give her some IV fluids as well and then reevaluate. Dictated By: Louis Stanley DO 08/24/19 22:09 JOB #: [id number] Transcribed By: clint 08/26/19 06:21 Electronically signed by: E-Sign: Dr. Louis Stanley D.O. 08/26/19 19:35 Page 2 of 2 ESTHER HILL Emergency Room Report Normal [facility] EMERGENCY REPORT [facility] EMERGENCY ROOM REPORT NAME ACCOUNT SEX AGE ADMIT DISCHARGE PT MED. RECORD# NUMBER DATE DATE TYPE SERGIO [id number] F 83 08/24/19 08/25/19 3 ESTHER Mirza [id number] ROOM: ER DATE OF : 1935 DICTATING PHYSICIAN: Louis Stanley ADDENDUM DIAGNOSTIC DATA: White count was 8.5, hemoglobin 10.9, hematocrit 31.2, platelet count 259,000. Sodium 136, potassium was mildly low at 2.8. Chloride 99, CO2 26.7, BUN 15, creatinine 0.7, glucose 107. AST was 37. ALT 41. Alk phos 89. Total bilirubin 0.4. Anion gap was normal at 13. Urinalysis showed 100 of leukocyte esterase with a negative nitrite. There was 26 to 50 white cells per high power field, 5 to 10 red cells per high power field, 4+ bacteria and only occasional epithelial. I did order a urine culture. The specific gravity on the urine was 1.015. EMERGENCY DEPARTMENT COURSE AND TREATMENT: Patient was given Rocephin 1 gram IV piggyback here. I started her on Levaquin 500 mg 1 p.o. daily, dispense number 8 with no refill. She was given a dose of K-Dur 20 mEq p.o. here and I placed her on K-Dur 20 mEq, 1 p.o. b.i.d., dispense number 10 with no refill. She is to take the medication as prescribed. I did ask her to follow up with Dr. Gant in the next 2 to 3 days to review the urine culture to make sure that infection is sensitive to the antibiotics that she is on. Encourage fluids and have her potassium rechecked by Dr. Gant in the office followup as well. If her symptoms become worse or any other problems develop, return to the emergency department. The patient was discharged in a clinically stable condition. Nurse notes reviewed. DIAGNOSES: 1. Hypokalemia. 2. Urinary tract infection. Dictated By: Louis Stanley DO 08/25/19 01:10 JOB #: [id number] Transcribed By: clint 08/26/19 07:31 Electronically signed by: E-Sign: Dr. Louis Stanley D.O. 08/26/19 19:35 Page 1 of 2 ESTHER HILL Emergency Room Report ESTHER HILL : 1935 Page 2 of 2 ESTHER HILL Emergency Room Report Normal [facility] CBC + DIFFon 08-25-2019 Basophils (Bld) [#/Vol] 0.00 x10EE3/UL Normal 0.00 - 0.10 [facility] Comment on above: Performed By: #### 2 83527 #### [facility],[address] [place] [address] Basophils/100 WBC (Bld) 0.5 % Normal 0.0 - 2.0 [facility] Comment on above: Performed By: #### 2 87590 #### [facility],[address] [place], [place] [id number] CBC + DIFF Normal [facility] Comment on above: Result Comment: CBC- COMPLETE BLOOD COUNT Performed By: #### 2 60329 #### [facility],[address] [place], [place] [id number] Eosinophils (Bld) [#/Vol] 0.00 x10EE3/UL Normal 0.00 - 0.50 [facility] Comment on above: Performed By: #### 2 90504 #### [facility],[address] [place], [place] [id number] Eosinophils/100 WBC (Bld) 0.3 % Normal 0.0 - 7.0 [facility] Comment on above: Performed By: #### 2 76953 #### [facility],[address] [place], [place] [id number] Erythrocyte distribution width (RBC) [Ratio] 12.9 % Normal 12.0 - 15.6 [facility] Comment on above: Performed By: #### 2 31227 #### [facility],[address] [place], [place] [id number] Hematocrit (Bld) [Volume fraction] 31.2 % Low 34.0 - 46.0 [facility] Comment on above: Performed By: #### 2 91209 #### [facility],[address] [place] [address]235 Hemoglobin (Bld) [Mass/Vol] 10.9 g/dL Low 12.0 - 16.0 [facility] Comment on above: Performed By: #### 2 36318 #### [facility],[address] [place] [address]2941 Lymphocytes (Bld) [#/Vol] 0.90 x10EE3/UL Normal 0.80 - 2.80 [facility] Comment on above: Performed By: #### 2 85399 #### [facility],[address] [place] [address] 87188 Lymphocytes/100 WBC (Bld) 10.5 % Low 20.0 - 45.0 [facility] Comment on above: Performed By: #### 2 00371 #### [facility],[address] [place] [address] 01136 MANUAL DIFF N/A Normal [facility] Comment on above: Performed By: #### 2 68516 #### [facility],[address] [place] [address] 42445 MCH (RBC) [Entitic mass] 30 pg Normal 27 - 33 [facility] Comment on above: Performed By: #### 2 13023 #### [facility],[address] [place] [address] 80495 MCHC (RBC) [Mass/Vol] 35 X10 3 Normal 32 - 36 [facility] Comment on above: Performed By: #### 2 12846 #### [facility],[address] [place] [address] 78875 MCV (RBC) [Entitic vol] 87 fL Normal 80 - 99 [facility] Comment on above: Performed By: #### 2 10127 #### [facility],[address] [place] [address] 91006 Monocytes (Bld) [#/Vol] 1.30 x10EE3/UL High 0.20 - 1.00 [facility] Comment on above: Performed By: #### 2 86235 #### [facility],[address] [place] [address] 82938 MONOS % 14.8 % High 0.0 - 10.0 [facility] Comment on above: Performed By: #### 2 32697 #### [facility],[address] [place] [address] 64101 Morphology Herberth (Bld) [Interp] N/A Normal [facility] Comment on above: Performed By: #### 2 98877 #### [facility],[address] [place] [address] 34094 Neutrophils (Bld) [#/Vol] 6.30 x10EE3/UL Normal 1.50 - 7.10 [facility] Comment on above: Performed By: #### 2 88361 #### [facility],[address] [place] [address] 81596 Neutrophils/100 WBC (Bld) 73.9 % Normal 46.0 - 76.0 [facility] Comment on above: Performed By: #### 2 88924 #### [facility],[address] [place] [address] 27914 Platelet mean volume (Bld) [Entitic vol] 7.1 fL Normal 6.6 - 10.5 [facility] Comment on above: Result Comment: AUTO MATED DIFFERENTIAL Performed By: #### 2 77717 #### [facility],[address] [place] [address]190 Platelets (Bld) [#/Vol] 259 x10EE3/UL Normal 150 - 450 [facility] Comment on above: Performed By: #### 2 02663 #### [facility],[address] [place] [address] 65348 RBC (Bld) [#/Vol] 3.58 x 10EE6/UL Low 4.10 - 5.30 [facility] Comment on above: Performed By: #### 2 92557 #### [facility],[address] [place] [address] 99945 WBC (Bld) [#/Vol] 8.5 x 10EE3/UL Normal 4.5 - 10.8 [facility] Comment on above: Performed By: #### 2 07309 #### [facility],[address] [place] [address] 16943 CMP with eGFRon 08-25-2019 Age - Reported 83 years Normal [facility] Comment on above: Performed By: #### 2 47708 #### [facility],[address] [place] [address] 42982 Albumin [Mass/Vol] 3.8 g/dL Normal 3.4 - 4.8 [facility] Comment on above: Performed By: #### 2 95164 #### [facility],[address] [place] [address] 03913 Albumin/Globulin [Mass ratio] 1.5 {ratio} Normal 0.9 - 1.6 [facility] Comment on above: Performed By: #### 2 91551 #### [facility],[address] [place] [address] 16905 ALK PHOS 89 U/L Normal 38 - 126 [facility] Comment on above: Performed By: #### 2 39914 #### [facility],[address] [place] [address] 06133 ALT/SGPT 41 U/L High 8 - 35 [facility] Comment on above: Performed By: #### 2 39358 #### [facility],[address] [place] [address] 52855 Anion gap [Moles/Vol] 13 mmol/L Normal 10 - 20 [facility] Comment on above: Performed By: #### 2 26826 #### [facility],[address] [place] [address] 45375 AST/SGOT 37 U/L Normal 13 - 39 [facility] Comment on above: Performed By: #### 2 05325 #### [facility],[address] [place] [address] 13787 B/C RATIO 21 ratio Normal 0 - 30 [facility] Comment on above: Performed By: #### 2 10033 #### [facility],[address] [place] [address] 31859 Bilirubin [Mass/Vol] 0.4 mg/dL Normal 0.0 - 1.5 [facility] Comment on above: Performed By: #### 2 25700 #### [facility],[address] [place] [address] 83387 Calcium [Mass/Vol] 8.7 mg/dL Normal 8.6 - 10.2 [facility] Comment on above: Performed By: #### 2 24886 #### [facility],[address] [place] [address] 27879 Chloride [Moles/Vol] 99 mmol/L Normal 98 - 107 [facility] Comment on above: Performed By: #### 2 56831 #### [facility],[address] [place] [address] 54064 CO2 [Moles/Vol] 26.7 mmol/L Normal 21.0 - 31.0 [facility] Comment on above: Performed By: #### 2 94904 #### [facility],[address] [place] [address] 68317 Creatinine [Mass/Vol] 0.7 mg/dL Normal 0.6 - 1.2 [facility] Comment on above: Performed By: #### 2 50140 #### [facility],[address] [place] [address] 62405 GFR/1.73 sq M predicted among non-blacks MDRD (S/P/Bld) [Vol rate/Area] mL/min/{1.73_m2} Normal 60 - 999 [facility] Comment on above: Result Comment: ACCO RDING TO THE NATIONAL KIDNEY DISEASE EDUCATION PROGRAM(NKDE), A NORMAL eGFR IS A VALUE GREATER THAN OR EQUAL TO 60 ML/MIN/1.73 SQ METERS. CHRONIC KIDNEY DISEASE: <60mL/MIN/1.73 SQ METERS KIDNEY FAILURE: <15mL/MIN/1.73 SQ METERS THIS TEST SHOULD ONLY BE USED FOR PATIENTS 18 YEARS OF AGE AND OLDER. Performed By: #### 2 84986 #### [facility],[address] [place] [address] 40961 GFR/1.73 sq M predicted among non-blacks MDRD (S/P/Bld) [Vol rate/Area] Normal [facility] Comment on above: Result Comment: COMP REHENSIVE METABOLIC PANEL Performed By: #### 2 94871 #### [facility],[address] [place] [address] 52940 Globulin (S) [Mass/Vol] 2.5 g/dL Normal 1.5 - 3.8 [facility] Comment on above: Performed By: #### 2 13704 #### [facility],[address] [place] [address] [id number] Glucose [Mass/Vol] 107 mg/dL High 74 - 106 [facility] Comment on above: Performed By: #### 2 97532 #### [facility],[address] [place] [address] 02547 Potassium [Moles/Vol] 2.8 mmol/L Critically low 3.5 - 5.1 [facility] Comment on above: Result Comment: { CA LLED TO STEVEN @5445/ADL { READ BACK BY STEVEN RA@3903 Performed By: #### 2 61753 #### [facility],[address] [place] [address] 40234 Protein [Mass/Vol] 6.3 g/dL Low 6.4 - 8.3 [facility] Comment on above: Performed By: #### 2 70851 #### [facility],[address] [place] [address] 27510 Sodium [Moles/Vol] 136 mmol/L Normal 136 - 145 [facility] Comment on above: Performed By: #### 2 16269 #### [facility],[address] [place] [address] 64948 Urea nitrogen [Mass/Vol] 15 mg/dL Normal 6 - 20 [facility] Comment on above: Performed By: #### 2 05863 #### [facility],[address] [place] [address] 32031 CULTURE URINEon 08-25-2019 CULTURE URINE CULTURE URINE _URINE CULTURE_ M I C R O B I O L O G Y R E P O R T FINAL -------- Antimicrobial Susceptibility and Organism Identification Report --------- Specimen Number : [id number] Requested : 08/24/19 Specimen Source : URINE Collected : 08/24/19 22:53 [place] of Isolation : EMERGENCY ROOM Received : 08/24/19 22:53 Requesting Physician : LIZETH ------- Patient/Specimen Tests and Comments Specimen Comments --------- --------- FINAL REPORT: URINE COLONY COUNT: 50,000-100,000 CFU/CC GRAM NEGATIVE RODS ------- Organisms Identified -------- * 01 Klebsiella pneumoniae 08/27/19 Comments --------- --------- 50-100,000 cfu ------- Tech : _ Source : URINE ID # : [id number] FINAL Report Date : / / : Collected : 08/24/19 22:53 Continued on Next Page M I C R O B I O L O G Y R E P O R T FINAL -------- Antimicrobial Susceptibility and Organism Identification Report --------- ------- Isolate 01 Klebsiella pneumoniae ------- Klebsiella pneumoniae DRUG LYNDSAY Sys. Urine UNITS ML/DL --- ----- ----- Amp/Sulbactam <=8/4 S S Ampicillin >16 R R Aztreonam <=8 S S Ceftriaxone <=8 S S Ceftazidime <=1 S S Cephalothin <=8 S Ciprofloxacin <=1 S S Cefuroxime <=4 S S Ertapenem <=1 S S Nitrofurantoin >64 R Gentamicin <=4 S S Imipenem <=1 S S Levofloxacin <=2 S S Meropenem <=1 S S Pip/Tazo <=16 S S Piperacillin 64 I I Trimeth/Sulfa <=2/38 S S Tetracycline <=4 S S Tobramycin <=4 S S +, ++, +++, or S = Susceptible N/R = Not Reported Terra = Beta Lactamase Positive I = Intermediate CC = Cost Code TFG = Thymidine-dependent Strain R = Resistant LYNDSAY = mcg/ml (mg/L) Blank = Data not available, or drug not advisable or tested For Blood and CSF Isolates, a Beta-Lactamase test is recommended for Enterococus species. IB appears in place of S, I (S), +, ++, or +++ with species known to possess inducible B-lactamases; potentially they may become resistant to all B-lactam drugs. Monitoring of patients during/after therapy is recommended. Avoid other/combined B-lactam drugs. (a) Use maximum doses of drug with an aminoglycoside for P. aeruginosa in patients with granulocytopenia or serious infections. (b) Breakpoints based on parenteral dose. For cefuroxime Axetil (PO) use <8=S, 8-16=I, >16=R. (c) For non-enterococcal streptococci, Micrococcus species, and Listeria species, refer to the Ampicillin interpretation. ------- * Interpretations based on approx. adult attainable systemic/urine levels, except drugs with <3 dilutions, which print NCCLS. Doses are guidelines; consider weight and renal/hepatic function. Urine interpretation for lower UTI only. Interpretations based on NCCLS M7-A2. Ticar/K Clav'ate for gram positives based on telecom assistant's breakpoints. ------- Tech : _ Source : URINE ID # : [id number] FINAL Report Date : / / : Collected : 08/24/19 22:53 08/27/19.50.JEAN-PAUL. 08/26/19.1013.BKO. SEND TO PHARMACY? NO 08/27/19.649.JEAN-PAUL.COMPLET E NO Normal [facility] Comment on above: Performed By: #### 2 99747 #### [facility],[address] [place] [address] URINALYSIS WITH MICROSCOPYon 08-25-2019 Amorphous NONE Normal [facility] Comment on above: Performed By: #### 2 76717 #### [facility],[address] [place] [address] Bacteria LM.HPF (Urine sed) [#/Area] 4+ Normal [facility] Comment on above: Performed By: #### 2 49544 #### [facility],[address] [place] [address] Bilirubin [Mass/Vol] Negative Normal NORMAL: NEGATIVE [facility] Comment on above: Performed By: #### 2 41674 #### [facility],[address] [place] [address] Blood 50 Abnormal NORMAL: NEGATIVE [facility] Comment on above: Performed By: #### 2 31891 #### [facility],[address] [place] [address] Casts LM.LPF (Urine sed) [#/Area] NONE Normal [facility] Comment on above: Performed By: #### 2 41355 #### [facility],[address] [place] [address] Clarity (U) clear Normal NORMAL: CLEAR [facility] Comment on above: Performed By: #### 2 56721 #### [facility],[address] [place] [address] Color (U) yellow Normal NORMAL: YELLOW [facility] Comment on above: Performed By: #### 2 58786 #### [facility],[address] [place] [address] Crystals LM Nom (Urine sed) NONE Normal [facility] Comment on above: Performed By: #### 2 70232 #### [facility],[address] [place] [address] Epi Cells OCC Normal [facility] Comment on above: Performed By: #### 2 03583 #### [facility],[address] [place] [address] 14661 Glucose [Mass/Vol] NORM Normal NORMAL: NORMAL [facility] Comment on above: Performed By: #### 2 19434 #### [facility],[address] [place] [address] 38688 Ketone 50 Abnormal NORMAL: NEGATIVE [facility] Comment on above: Performed By: #### 2 04146 #### [facility],[address] [place] [address] 24863 Mucous 1+ Normal [facility] Comment on above: Performed By: #### 2 08479 #### [facility],[address] [place] [address] 51129 Nitrite Ql (U) Negative Normal NORMAL: NEGATIVE [facility] Comment on above: Performed By: #### 2 80028 #### [facility],[address] [place] [address] 13402 pH (Bld) 6 Normal NORMAL: 5.0-8.0 [facility] Comment on above: Performed By: #### 2 39407 #### [facility],[address] [place] [address] 93584 Protein (U) [Mass/Vol] 100 mg/dL Abnormal NORMAL: NEGATIVE [facility] Comment on above: Performed By: #### 2 82826 #### [facility],[address] [place] [address] 37783 Rbc 5-10 Normal 0-3 / hpf [facility] Comment on above: Performed By: #### 2 22555 #### [facility],[address] [place] [address] 73593 Sp [place] 1.015 Normal NORMAL: 1.010-1.030 [facility] Comment on above: Performed By: #### 2 73719 #### [facility],[address] [place] [address] Specimen type Nom (Spec) UNSPECIFIED Normal [facility] Comment on above: Performed By: #### 2 73498 #### [facility],[address] [place] [address] URINALYSIS WITH MICROSCOPY Normal [facility] Comment on above: Result Comment: URIN ALYSIS Performed By: #### 2 19301 #### [facility],[address] [place] [address] Urobilinog NORM Normal NORMAL: NORMAL [facility] Comment on above: Performed By: #### 2 85409 #### [facility],[address] [place] [address] Wbc 26-50 Normal 0-5 / hpf [facility] Comment on above: Performed By: #### 2 39211 #### [facility],[address] [place] [address] WBC (Bld) [#/Vol] 100 Abnormal NORMAL: NEGATIVE [facility] Comment on above: Result Comment: URIN E MICROSCOPIC Performed By: #### 2 85937 #### [facility],[address] [place] [address] Yeast LM Ql (Urine sed) NONE Normal [facility] Comment on above: Performed By: #### 2 32692 #### [facility],[address] [place] [address] Main OR Intraop Recordon Main OR Intraop Record Normal [facility] [place] Procedure Noteon 07-04-2017 Anesthesiology Consultation Normal [facility] [place] Anesthesiology Consultation Normal [facility] [place] Dis[place] Summaryon 07-01-19 Discharge Summary Normal [facility] [place] Procedure Noteon 06-30-2017 Procedure Note Normal [facility] [place] Non-Senior It Engineer Cytology Reporton Non-Senior It Engineer Cytology Report . Pathology ReportsAccession: Collected Date/Time: Received Date/Time: Pathologist:[id number] 06/28/2017 09:20 EDT 06/28/2017 11:39 EDT MD MANDY NUNES Non-Senior It Engineer Cytology ReportCLINICAL INFORMATION:DILATED COMMON BILE DUCTDIAGNOSIS:NEGATIVE FOR MALIGNANCYCOMMENT:SPARSEL Y CELLULAR SPECIMEN.SPECIMEN:BILIARY STENTGROSS DESCRIPTION:# of Monolayers: 1 # of Blocks:1Volume (ml) 10 Color: FIXED YELLOW FLUID WITH STENTElectronically Signed byPathology report verified by [facility] Centercreened by: ART MGSElectronically signed by MANDY NUNES MDSign-Out Date: 06/29/2017 10:30Performing Lab: [address] Normal [facility] [place] Comment on above: Performed By: #### P LT, APTT, PRO ####[place] [address] APTTon 06-28-2017 aPTT Unknown Normal [facility] ([place] Comment on above: Performed By: #### P LT, APTT, PRO ####[place] [address] aPTT 27.1 s Normal 25.0-35.0 [facility] ([place] Comment on above: Result Comment: For Heparin anticoagulation therapy, the recommendedtherapeutic range is: 54-77 seconds (APTT Correlationwith Anti-Xa therapeutic range of 0.3-0.7 units/ml).PLEASE REFERENCE THE PHARMACY PROTOCOL FOR DOSING. Performed By: #### P LT, APTT, PRO ####[place] [address] Depart Summaryon 06-28-2017 Depart Summary Normal [facility] [place] Outpatient Patient Summaryon 06-28-2017 Outpatient Patient Summary Normal [facility] [place] PLTon 06-28-2017 Platelets 285 10 3/mcL Normal 150-450 [facility]) Comment on above: Performed By: #### P LT, APTT, PRO ####[place] [address] PROon 06-28-2017 INR Coag RelTime (PPP) 0.9 {INR} Normal [facility] ([place] Comment on above: Result Comment: [employer] (CHEST, 1992, 102:312S-25S)recommended therapeutic range for oral anticoagulant therapy is:LOW RISK: Prophylaxis of venous thrombosis INR: 2.0-3.0 Treatment of pulmonary embolism 2.0-3.0 Prevention of systemic embolism 2.0-3.0HIGH RISK: Mechanical prosthetic valves 2.5-3.5 Performed By: #### P LT, APTT, PRO ####[place] [address] [place], [place] [id number] Prothrombin time (PT) Coag time (PPP) 10.1 s Normal 9.0-14.5 [facility] ([place] Comment on above: Result Comment: Effe ctive 09/26/07, Protime results may be affected by some antibiotics (i.e. Ciprofloxacin, Azithromycin, Bactrim) which may potentiate the action of oral anticoagulants, with further increases in Protime/INR. Performed By: #### P LT, APTT, PRO ####[place] [address] [place] [address]53 Pat Eduon 06-28-2017 Pat Edu Normal [facility] [place] Procedure Noteon 06-28-2017 Procedure Note Normal [facility] [place] Procedure Note Normal [facility] [place] XR ERCP BILIARY AND PANCREAT IC DUCTon 06-28-2017 Creatinine ORIGINALXR ERCP BILI KEN[place] AND PANCREATIC DUCT CLINICAL STATEMENT: dilated CBD COMPARISON: None FINDINGS:46.7 seconds of fluoroscopic time with a cumulative dose of 7.69 mGy was utilized. 3 intraoperative images were recorded for localization purposes. Preliminary image demonstrates biliary stent in place. One is referred to the intraoperative notes for further diagnostic information Interpreted By: Carlie Barajasreliminary Report By: Carlie Barajas MDElectronically Signed By: Carlie Barajas MD Dictated Date: 06/28/2017 10:37:16 AM Prelim Date: 06/28/2017 10:37:16 AM Sign Date: 06/28/2017 10:37:52 AM Normal [facility] [place] Discharge Summaryon 03-18-19 18 Discharge Summary Normal [facility] [place] Procedure Noteon 03-18-2017 Procedure Note Normal [facility] [place] XR ERCP BILIARY AND PANCREAT IC DUCTon 03-16-2017 Creatinine ORIGINALEndoscopic retrograde cholangiopancreatogram CLINICAL STATEMENT: Dilated common bile duct 3 minutes 48 seconds of fluoroscopic time was utilized by Dr. Campbell in performing the procedure. 6 spot images were retained. These show cannulation and injection of contrast into a dilated common bile duct. No mass or filling defect is seen. Intrahepatic biliary tree appears normal in caliber. Sphincterotomy was performed and a biliary stent was placed. Interpreted By: Kris Cidreliminary Report By: Kris Cid MDElectronically Signed By: Kris Cid MD Dictated Date: 03/16/2017 2:36:36 PM Prelim Date: 03/16/2017 2:36:36 PM Sign Date: 03/16/2017 2:42:45 PM Normal [facility]) APTTon 03-15-2017 aPTT 28.6 s Normal 25.0-35.0 [facility]) Comment on above: Result Comment: For Heparin anticoagulation therapy, the recommendedtherapeutic range is: 54-77 seconds (APTT Correlationwith Anti-Xa therapeutic range of 0.3-0.7 units/ml).PLEASE REFERENCE THE PHARMACY PROTOCOL FOR DOSING. Performed By: #### P LT, APTT, PRO ####[place] [address] aPTT Unknown Normal [facility]) Comment on above: Performed By: #### P LT, APTT, PRO ####[place] [address] Depart Summaryon 03-15-2017 Depart Summary Normal [facility]) Main OR Intraop Recordon Main OR Intraop Record Normal [facility]) Outpatient Patient Summaryon 03-15-2017 Outpatient Patient Summary Normal [facility]) PLTon 03-15-2017 Platelets 304 10 3/mcL Normal 150-450 [facility]) Comment on above: Performed By: #### P LT, APTT, PRO ####[place] [address] PROon 03-15-2017 INR Coag RelTime (PPP) 0.9 {INR} Normal [facility] ([place] Comment on above: Result Comment: [employer] (CHEST, 1992, 102:312S-25S)recommended therapeutic range for oral anticoagulant therapy is:LOW RISK: Prophylaxis of venous thrombosis INR: 2.0-3.0 Treatment of pulmonary embolism 2.0-3.0 Prevention of systemic embolism 2.0-3.0HIGH RISK: Mechanical prosthetic valves 2.5-3.5 Performed By: #### P LT, APTT, PRO ####[place] [address] [place] [address] Prothrombin time (PT) Coag time (PPP) 10.2 s Normal 9.0-14.5 [facility] ([place]) Comment on above: Result Comment: Effe ctive 09/26/07, Protime results may be affected by some antibiotics (i.e. Ciprofloxacin, Azithromycin, Bactrim) which may potentiate the action of oral anticoagulants, with further increases in Protime/INR. Performed By: #### P LT, APTT, PRO ####[place] [address] [place] [address] EMERGENCY REPORTon 11-24-201 7 EMERGENCY REPORT [facility] EMERGENCY ROOM REPORT NAME NUMBER SEX AGE ADMIT DISC TYPE MED.RECORD# ESTHER CHAWLA [id number] F 81 12/07/2016 12/07/2016 Giuseppe [id number] ROOM:ER DATE OF :1935 PHYSICIAN NO.:[id number] PHYSICIAN NAME: PHYSICIAN:Aurelio Torre D.O. HISTORY OF PRESENT ILLNESS: This is a 81-year-old female presents due to fall with nose and mouth pain. Patient landed with her mouse and nose on a pile of boxes she was carrying when she tripped. Patient denies loss of consciousness. She does have a headache. Patient denies head trauma. She stated that she had a bloody nose that has resolved prior to arrival. She is right-handed. Her headache is rated 6/10. Nose and mouth pain is 9/10. Patient did not take anything for pain prior to arrival in the ER. PAST MEDICAL HISTORY: Patient denies significant past medical history. PAST SURGICAL HISTORY: She has had an appendectomy, cholecystectomy. ALLERGIES: She is allergic to penicillin, sulfa, nonsteroidal anti-inflammatories, estradiol, tape, novocaine. FAMILY HISTORY: Patient denies significant family history. IMMUNIZATIONS: Up-to-date. SOCIAL HISTORY: Patient is retired. She denies smoking. REVIEW OF SYSTEMS: Neurologic: She has headache. Musculoskeletal: She has neck pain. ENT: She has facial pain. All other systems reviewed and negative. PHYSICAL EXAMINATION: Vital signs: Temperature is 97.5, pulse 77, respiratory rate 18, blood pressure 147/79. Constitutional: Patient is well-developed, well-nourished. She is in no acute distress, alert, responsive. Head is normocephalic. Eyes: Conjunctivae clear. Pupils equally round and reactive to light. Extraocular muscles intact. Ears: External ears without lesions. Canals without erythema or drainage. Tympanic membranes translucent without bulging. No erythema. No kirkland sign. Mouth: Oral mucosa pink and moist. No tonsillar erythema or drainage. Neck: Trachea is midline and moveable. No thyromegaly. No cervical lymphadenopathy. Cardiovascular: Heart rate and rhythm regular without any murmurs. Respiratory: Lungs clear to auscultation bilaterally. Respirations nonlabored. No respiratory distress. Abdomen was soft. No palpable masses. No tenderness. No guarding. Bowel sounds present x4. No bruising. Musculoskeletal: She has no pain or tenderness to the joints. She does have cervical spinous process tenderness. Skin: No rashes. Resilient, warm, and dry. She has a bruise on her left elbow. Psychiatric: Affect appropriate. Mood appropriate. Patient is interactive and vocalized understanding. DIAGNOSTIC DATA: CT of the head, neck and face was performed and it shows no acute fracture or traumatic listhesis of the cervical spine. No pneumothorax or visualized lung apices. Fracture through the posterior lateral wall of the maxillary sinus. No definite orbital wall fracture is appreciated. Brain volume appears to be normal. No acute intracranial hemorrhage. EMERGENCY DEPARTMENT COURSE AND TREATMENT: Patient received Tylenol 650 mg. She is going to receive 800 mg of ibuprofen and 500 mg of Cipro prior to discharge. DIAGNOSIS: Left posterior sinus fracture. PLAN/DISPOSITION: She is going to be discharged home with ibuprofen 600 mg #20 one p.o. q. 6 hours p.r.n. for pain, take with food and/or milk, and Cipro 500 mg #20 one p.o. b.i.d. x10 days. Hold medication and call primary care provider for joint pain or mental status change. Patient is referred to ENT, Dr. Noé Motta, , to be seen in 1 day. EMERGENCY ROOM REPORT ESTHER CHAWLA 1 [facility] EMERGENCY ROOM REPORT NAME NUMBER SEX AGE ADMIT DISC TYPE MED.RECORD# ESTHER CHAWLA [id number] F 81 12/07/2016 12/07/2016 TheronRO[place] [id number] ROOM:ER DATE OF :1935 PHYSICIAN NO.:[id number] PHYSICIAN NAME: PHYSICIAN:Aurelio Torre D.O. D: Aurelio Torre D.O. TD: 12/07/2016 19:54:49 JOB #: [id number] DR. AURELIO TORRE EMERGENCY DEPARTMENT 02/04/17 20:10 Transcribed by: NMT 12/07/2016 19:54:49 Copy for: KAMRAN Barriga DO Copy for: PRANAV FERGUSON MD EMERGENCY ROOM REPORT ESTHER CHAWLA 2 Normal [facility] MR ABDOMEN W //T// W/O CONTR Ailyn 01-17-2017 MR ABDOMEN W //T// W/O CONTRAST [place] [address] Patient: ESTHER CHAWLA Phone#: : 1935 Age: 81 Gender: F Pt. Type: Out Account: [id number] Location: 052 Ordering: TIERRA KLEIN Exam Date: 01/17/2017/8:22 Family Phys: Charge Code: [id number] Physician: [facility] Order #: [id number] DLP Dose#: PROCEDURE: MRI ABDOMEN WITH AND WITHOUT CONTRST COMPARISON: [facility], CT, LUMBAR SPINE W/O CON, 01/09/2017, 19:50. INDICATIONS: Pancreatic atrophy with dilated ducts TECHNIQUE: A comprehensive MRI examination of the abdomen was performed utilizing a variety of imaging planes and imaging parameters to optimize visualization of suspected pathology. Images were obtained both before and after intravenous gadolinium injection. FINDINGS: LIVER: Normal. No enlargement, atrophy, abnormal density, or significant focal lesion. BILIARY: The gallbladder is absent. There is dilatation of the common bile duct measuring 23 mm in diameter. There is abrupt termination with concave margin at the ampulla suggestive of obstructive etiology such as calculus or debris. There is mild intrahepatic biliary dilatation. No other intraluminal filling defects are identified. PANCREAS: The pancreas is unremarkable. The pancreatic duct measures 6 mm in diameter proximally. SPLEEN: Normal. No enlargement or focal lesion. KIDNEYS: Normal. No mass or obstruction. ADRENALS: Normal. No mass or enlargement. AORTA/VASCULAR: Normal. No aneurysm or dissection. RETROPERITONEUM: Normal. No mass or adenopathy. BOWEL/MESENTERY: Normal. No visible mass, obstruction, or bowel wall thickening. ABDOMINAL WALL: Normal. No mass or hernia. BONES: Normal. No bony lesion or fracture. LUNG BASES: Normal. No visible pleural disease. Lung bases not well assessed with MRI. OTHER: There is superior endplate compression at T12. Continued Report - Page 2 of 2 Patient: ESTHER CHAWLA Phone#: : 1935 Age: 81 Gender: F Pt. Type: Out Account: [id number] Location: 2 Ordering: TIERRA KLEIN Exam Date: 01/17/2017/8:22 Family Phys: Charge Code: [id number] Physician: [facility] Order #: [id number] DLP Dose#: CONCLUSION: 1. There is dilatation of the common bile duct measuring up to 23 mm. There is mild intrahepatic biliary dilatation. There is abrupt termination at the ampulla with concave defect suggestive of calculus or debris. The pancreatic duct measures up to 6 mm in diameter. Dictated by: Ritika Baugh MD on 01/17/2017 at 17:09 Approved by: Ritika Baugh MD on 01/17/2017 at 17:09 Normal [facility] BMP with eGFRon 01-14-2017 Age 81 years Normal [facility] Comment on above: Performed By: #### 2 95266 ####[facility],[address] [place] [address] Anion gap 12 mmol/L Normal - 20 [facility] Comment on above: Performed By: #### 2 23927 ####[facility],[address] [place] [address] 12873 Calcium 9.0 mg/dL Normal 8.6 - 10.2 [facility] Comment on above: Performed By: #### 2 73089 ####[facility],[address] [place], [place] [id number] Chloride 107 mmol/L Normal 98 - 107 [facility] Comment on above: Performed By: #### 2 47012 ####[facility],[address] [place] [address] 76730 CO2 26.8 mmol/L Normal 21.0 - 31.0 [facility] Comment on above: Performed By: #### 2 56308 ####[facility],[address] [place], [place] [id number] Creatinine 0.6 mg/dL Normal 0.6 - 1.2 [facility] Comment on above: Performed By: #### 2 56482 ####[facility],[address] [place] [address] 46822 eGFR (non-black) mL/min/{1.73_m2} Normal 60 - 999 [facility] Comment on above: Performed By: #### 2 86095 ####[facility] [facility],[address] [place] [id number] Result Comment: ACCO RDING TO THE NATIONAL KIDNEY DISEASE EDUCATION PROGRAM(NKDE), A NORMAL eGFRIS A VALUE GREATER THAN OR EQUAL TO 60 ML/MIN/1.73 SQ METERS.CHRONIC KIDNEY DISEASE: <60mL/MIN/1.73 SQ METERSKIDNEY FAILURE: <15mL/MIN/1.73 SQ METERSTHIS TEST SHOULD ONLY BE USED FOR PATIENTS 18 YEARS OF AGE AND OLDER. eGFR (non-black) Normal [facility] Comment on above: Result Comment: BASI C METABOLIC PANEL Performed By: #### 2 [id number] ####[facility],[address] [place], [place] [id number] Glucose mass conc 87 mg/dL Normal 74 - 106 [facility] Comment on above: Performed By: #### 2 [id number] ####[place] [id number] Potassium molar conc 3.7 mmol/L Normal 3.5 - 5.1 [facility] Comment on above: Performed By: #### 2 [id number] ####[facility],[address] [place] [address] Sodium 142 mmol/L Normal 136 - 145 [facility] Comment on above: Performed By: #### 2 [id number] ####[place] [address] Urea nitrogen 16 mg/dL Normal 6 - 20 [facility] Comment on above: Performed By: #### 2 23827 ####[place] [address] EMERGENCY REPORTon 7 EMERGENCY REPORT [facility] EMERGENCY ROOM REPORT NAME NUMBER SEX AGE ADMIT DISC TYPE MED.RECORD# ESTHER CHAWLA [id number] F 81 01/09/2017 01/09/2017 Giuseppe [id number] ROOM:ER DATE OF :1935 PHYSICIAN NO.:[id number] PHYSICIAN NAME:Tierra Klein PHYSICIAN:KRISHAN ESPANA HISTORY OF PRESENT ILLNESS: The patient came in. The patient fell 2 days ago. She landed on her gluteal area. She was having back pain in her upper lumbar area. It went to both sides. She was having discomfort. She tried Tylenol, which did not help. She denies fevers, chills, nausea, and vomiting but said she could not tolerate the discomfort and presents to the emergency department. She states at times it is 10/10 when she moves. It is better with rest. PAST MEDICAL HISTORY: Positive for H. pylori and COPD. PAST SURGICAL HISTORY: She has had a cholecystectomy and appendectomy. SOCIAL HISTORY: She does not smoke or drink. REVIEW OF SYSTEMS: Ten systems were reviewed and are negative except as mentioned above. PHYSICAL EXAMINATION: General: She is an awake, alert, and oriented female in no acute distress. Vital signs: She is afebrile. Pulse: 74. Respirations: 20. Blood pressure: 132/75. Pulse oximetry: 97% on room air. Head: Normocephalic and atraumatic. Eyes: Pupils are equal, round, and reactive to light. Extraocular movements are intact. ENT: Nares are patent. Throat has adequate moisture. Uvula is midline. Neck: Supple without petechiae or rash. Heart: Without murmur. S1 and S2. No S3 or S4 are appreciated. Lungs: Clear to auscultation bilaterally. No rales, rhonchi, or retractions. Abdomen: Soft, nontender, and nondistended. Skin: Warm and dry. Musculoskeletal: The patient had tenderness to the midline upper lumbar area. DIAGNOSTIC DATA: She had x-rays obtained, which showed a possible compression fracture. I also got a CT. The CT showed a probable compression fracture at L1. She also had a dilated common bile duct and pancreatic duct. I recommended MRI with and without contrast and MRCP. DIAGNOSES: 1. Status post fall. 2. Compression fracture at L1. 3. Dilated bile and pancreatic ducts, possible cancer. PLAN/DISPOSITION: The patient will be discharged to home. The patient will be discharged in stable condition. We will write her for Motrin for pain and Percocet for severe pain. D: KRISHAN ESPANA TD: 01/10/2017 00:46:03 JOB #: [id number] DOLORES Espana D.O. Emergency Department 01/11/17 04:05 Transcribed by: NMAnmol 01/10/2017 00:46:03 EMERGENCY ROOM REPORT ESTHER CHAWLA 1 [facility] EMERGENCY ROOM REPORT NAME NUMBER SEX AGE ADMIT DISC TYPE MED.RECORD# ESTHER CHAWLA [id number] F 81 01/09/2017 01/09/2017 Giuseppe [id number] ROOM:ER DATE OF :1935 PHYSICIAN NO.:[id number] PHYSICIAN NAME:Tierra Klein PHYSICIAN:KRISHAN ESPANA Copy for: STEVEN Barriga III Copy for: ERNIE MAYORGA MD EMERGENCY ROOM REPORT ESTHER CHAWLA 2 [facility] CT LUMBAR W/O CONTRASTon CT LUMBAR W/O CONTRAST [address] [address] Patient: ESTHER CHAWLA Phone#: : 1935 Age: 81 Gender: F MRN: Pt. Type: ER Account: [id number] Location: 052 Ordering: [facility] Exam Date: 01/09/2017/19:50 Family Phys: TIERRA KLEIN Charge Code: [id number] Physician: [facility] Order #: [id number] DLP Dose#: 12.00 PROCEDURE: CT LUMBAR SPINE WITHOUT CONTRAST COMPARISON: [facility], XR, LUMBAR SPINE COMPLETE, 01/09/2017, 19:01. INDICATIONS: Pain in Back TECHNIQUE: After obtaining the patient's consent, multi-planar CT images were created without intravenous contrast material. All CT scans at this facility use dose modulation, iterative reconstruction, and/or weight based dosing when appropriate to reduce radiation dose to as low as reasonably achievable. IV CONTRAST: No IV contrast used,0ml TOTAL DOSE: 12.00 CTDIvol(mGy) FINDINGS: PARASPINAL AREA: Postsurgical changes at the gastroesophageal junction with fidelia and anastomotic suture material. Suture material is present in the pelvis. Diverticulosis is noted on the visualized portion of colon. Dilated proximal common bile duct measuring up to 2.1 cm and dilated pancreatic duct measuring 0.4 cm. Pancreatic atrophy noted. BONES: Diffuse bony demineralization. There is transitional anatomy at the lumbosacral junction. Acute superior endplate compression deformity of L1 with mild vertebral body height loss. The remaining vertebral bodies are normal in height and alignment. The cortical irregularity seen on the lumbar x-ray is unremarkable and likely due to superimposition of structures on the radiograph. Chronic endplate changes at L5-S1. Continued Report - Page 2 of 2 Patient: ESTHER CHAWLA Phone#: : 1935 Age: 81 Gender: F MRN: Pt. Type: ER Account: [id number] Location: 052 Ordering: [facility] Exam Date: 01/09/2017/19:50 Family Phys: TIERRA KLEIN Charge Code: [id number] Physician: [facility] Order #: [id number] DLP Dose#: 12.00 LUMBAR DISC LEVELS: L1-L2: No significant disc/facet abnormality, spinal stenosis, or foraminal stenosis. L2-L3: There is disc bulge contributing to moderate left and mild right foraminal narrowing. L3-L4: There is calcification within the disc. No osseous foraminal narrowing L4-L5: There is broad-based disc bulge resulting in moderate to severe right and moderate left neural foraminal narrowing. There is mild spinal canal narrowing. L5-S1: Disc height loss with vacuum disc phenomena and posterior uncovertebral hypertrophy contributes to moderate left and severe right foraminal narrowing. CONCLUSION: 1. Acute superior endplate compression deformity of L1 with mild vertebral body height loss. 2. Dilated common bile duct and pancreatic duct. Recommend further evaluation with MRI without and with contrast and MRCP. The patient may also benefit from a CT abdomen pelvis with contrast. Findings communicated to Dr. Krishan Espana at 20:17 on January 09, 2017 3. Disc bulge with foraminal narrowing at L4-5 and L5-S1. 4. Transitional anatomy at the lumbosacral junction. Recommend evaluation with radiographs of the spine for vertebral body labeling prior to any surgical intervention. Dictated by: Caitlyn Rich MD on 01/09/2017 at 20:18 Approved by: Caitlyn Rich MD on 01/09/2017 at 20:18 Normal [facility] LUMBO SACRAL COMPLETE MIN 4 VIEWSon 01-09-2017 LUMBO SACRAL COMPLETE MIN 4 VIEWS [place] [address] Patient: ESTHER CHAWLA Phone#: : 1935 Age: 81 Gender: F Pt. Type: ER Account: [id number] Location: 052 Ordering: KRISHAN ESPANA Exam Date: 01/09/2017/19:01 Family Phys: TIERRA KLEIN Charge Code: [id number] Physician: [facility] Order #: [id number] DLP Dose#: PROCEDURE: X-RAY LUMBAR SPINE COMPLETE MIN 4 VIEWS COMPARISON: None. INDICATIONS: Trauma FINDINGS: BONES: There is age-indeterminate mild superior endplate compression deformity of T12. Otherwise the vertebral bodies appear normal in height and alignment. There is cortical irregularity of the anterior sacrum, cannot exclude a fracture. DISC SPACES: There is disc height loss at L4-5 and L5-S1 PARASPINOUS: Surgical clips and anastomosis material seen in the epigastric region. There is anastomosis material in the pelvis. Phleboliths are seen in the pelvis. OTHER: Negative. CONCLUSION: 1. Age-indeterminate mild superior endplate compression deformity of T12. 2. Cortical irregularity of the anterior sacrum, cannot exclude fracture. Dictated by: Caitlyn Rich MD on 01/09/2017 at 19:51 Approved by: Caitlyn Rich MD on 01/09/2017 at 19:51 [facility] PELVIS 1 or 2 VIEWSon 2016 [place] [address] Patient: ESTHER CHAWLA. Phone#: : 1935 Age: 81 Gender: F Pt. Type: ER Account: [id number] Location: [facility] Ordering: KRISHAN ESPANA Exam Date: 01/09/2017/19:04 Family Phys: TIERRA KLEIN Charge Code: [id number] Physician: [facility] Order #: [id number] DLP Dose#: PROCEDURE: X-RAY PELVIS AP COMPARISON: None. INDICATIONS: Trauma FINDINGS: BONES: No appreciable fracture, however overlying bowel gas may obscure a nondisplaced fracture. SOFT TISSUES: Negative. No visible soft tissue swelling. EFFUSION: None visible. OTHER: Suture material is seen along bilateral pelvic sidewalls. CONCLUSION: No appreciable fracture. Dictated by: Caitlyn Rich MD on 01/09/2017 at 19:48 Approved by: Caitlyn Rich MD on 01/09/2017 at 19:48 Normal [facility] EMERGENCY REPORTon 01-01-201 7 EMERGENCY REPORT [facility] EMERGENCY ROOM REPORT NAME NUMBER SEX AGE ADMIT DISC TYPE MED.RECORD# CAMMY ESTHER Hermes [id number] F 81 12/28/2016 12/28/2016 Giuseppe [id number] ROOM:ER DATE OF :1935 PHYSICIAN NO.:[id number] PHYSICIAN NAME:Tierra Klein PHYSICIAN:TOMA LUGO DO TIME OF PRESENTATION: 2128 hours, seen by Dr. Lugo at 2147 hours for an injury to her right hand. . HISTORY OF PRESENT ILLNESS: She called us and said that she wanted us to look at a laceration. She had had a skin tear on her hand between the 3rd and 4rd knuckles which she did at home. She states that she was moving a car door, a replacement for a current car door that she had and she was going to replace it with a new car door, but she slid it into position in her vehicle. It caught on the carpet and she tore the skin. She has thin skin. She is in good health otherwise. Denies diabetes. States that she has had a tetanus recently. She states did not wash this exactly but she let it bleed and bleed and bleed and then she dabbed it and then she put the skin tag back in place and she applied Super Glue to it. PHYSICAL EXAMINATION: Neurovascularly is normal to her hand. There is no overt swelling. Her bones appear normal. The remainder of her exam, she is pleasant, alert. Heart rate and rhythm is regular without a murmur. Her lungs are clear. She is ambulatory. She is pleasant and alert. EMERGENCY DEPARTMENT COURSE AND TREATMENT: So here she now comes with this skin tag which is about 1 cm, a centimeter V flap laceration in perfect position and Dermabond in place with 1 open edge. When she closes her fist, that open edge does not gap. It is well done and so given the fact that she fixed this at home, I think we can just use a little bacitracin ointment on this and give her a little Keflex. DIAGNOSIS: Skin tear right hand, treated at home appropriately. One thing she states she did not use water at home on this laceration. PLAN/DISPOSITION: She was discharged at 2200 hours. She is to followup with Dr. Klein in the office in 48 hours or here in the emergency room for us to recheck for signs of infection but it certainly looks like a good closure. There is no evident foreign body. I do not think we can improve on this. D: TOMA LUGO DO TD: 12/31/2016 00:00:26 JOB #: [id number] E-SIGN TOMA LUGO EMERGENCY DEPARTMENT 01/01/17 02:01 Transcribed by: NMT 12/31/2016 00:00:26 Copy for: BRITTNEY CHUA DO Copy for: ERNIE MAYORGA MD EMERGENCY ROOM REPORT ESTHER CHAWLA 1 Normal [facility] CT BRAIN W/O CONTRASTon 11-13 CT BRAIN W/O CONTRAST [place] [address] Patient: ESTHER CHAWLA Phone#: : 1935 Age: 81 Gender: F Pt. Type: ER Account: [id number] Location: [facility] Ordering: AURELIO TORRE Exam Date: 12/07/2016/1:58 Family Phys: TALABHISAS Charge Code: [id number] Physician: [facility] Order #: [id number] DLP Dose#: 57.50 PROCEDURE: CT BRAIN WITHOUT CONTRAST COMPARISON: None. INDICATIONS: Trauma TECHNIQUE: CT images were obtained without contrast material. All CT scans at this facility use dose modulation, iterative reconstruction, and/or weight based dosing when appropriate to reduce radiation dose to as low as reasonably achievable. IV CONTRAST: No IV contrast used,0ml TOTAL DOSE: 57.50 CTDIvol(mGy) FINDINGS: CEREBRUM: No edema, hemorrhage, mass. There is mild global atrophy. There is mild periventricular deep cerebral white matter hypodensity, a patient of this age group this is consistent with chronic small vessel ischemic disease. There are physiologic calcifications in the basal ganglia. CEREBELLUM: No edema, hemorrhage, mass. There is mild global atrophy. BRAINSTEM: No edema, hemorrhage, mass, or inappropriate atrophy. CSF SPACES: Ventricles, cisterns, and sulci are proportionate to the degree of atrophy and symmetric in size and configuration. No hydrocephalus, subarachnoid hemorrhage, or mass. SKULL: No mass or other significant visible lesion. SINUSES: There is mild mucosal thickening of the ethmoid air cells and an air fluid level visualized portions of left maxillary sinus. ORBITS: The jena ocular lenses are absent. Continued Report - Page 2 of 2 Patient: ESTHER CHAWLA Phone#: : 1935 Age: 81 Gender: F Pt. Type: ER Account: [id number] Location: 052 Ordering: AURELIO TORRE Exam Date: 12/07/2016/1:58 Family Phys: TALAMYSAS Charge Code: [id number] Physician: [facility] Order #: [id number] DLP Dose#: 57.50 OTHER: Atherosclerotic calcifications of the cavernous carotid arteries. 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 CONCLUSION: 1. No appreciable acute intracranial abnormality. Dictated by: Caitlyn Rich MD on 12/07/2016 at 10:05 Approved by: Caitlyn Rich MD on 12/07/2016 at 10:05 Normal [facility] CT CERVICAL W/O CONTRASTon 0 12-07-2016 CT CERVICAL W/O CONTRAST [place] [address] Patient: ESTHER CHAWLA Phone#: : 1935 Age: 81 Gender: F Pt. Type: ER Account: [id number] Location: 052 Ordering: AURELIO LinusOmer KAMRAN Exam Date: 12/07/2016/1:58 Family Phys: TALAMYSAS Charge Code: [id number] Physician: [facility] Order #: [id number] DLP Dose#: 6.50 PROCEDURE: CT CERVICAL WITHOUT CONTRAST COMPARISON: [facility], CT, CHEST PE W CON, 12/06/2013, 19:22. INDICATIONS: Trauma TECHNIQUE: Multi-planar CT images were created without intravenous contrast. All CT scans at this facility use dose modulation, iterative reconstruction, and/or weight based dosing when appropriate to reduce radiation dose to as low as reasonably achievable. IV CONTRAST: No IV contrast used,0ml TOTAL DOSE: 6.50 CTDIvol(mGy) FINDINGS: CRANIOCERVICAL AREA: Normal foramen magnum with no Chiari malformation. PARASPINAL AREA: Normal with no visible mass. BONES: There is diffuse bony demineralization, somewhat limiting evaluation for nondisplaced fractures. There is reversal of the normal cervical lordosis. The vertebral bodies are normal in height. The dens is intact. The lateral masses are symmetric. There are degenerative changes at the atlantoaxial interval. Rotation at the atlantoaxial interval is likely due to positioning of the patient's head. There is mild anterolisthesis of C2 on C3 and C3 on C4. DISC: There is disc height loss at C3-4, C4-5, C5-6 and C6-7. OTHER: In the right apex there is ill-defined density measuring 3.1 x 0.6 x 2.0 centimeters. Continued Report - Page 2 of 2 Patient: ESTHER CHAWLA Phone#: : 1935 Age: 81 Gender: F Pt. Type: ER Account: [id number] Location: [facility] Ordering: AURELIO TORRE Exam Date: 12/07/2016/1:58 Family Phys: CARROL Charge Code: [id number] Physician: [facility] Order #: [id number] DLP Dose#: 6.50 CERVICAL DISC LEVELS: C2-C3: Left facet arthropathy and uncovertebral hypertrophy contribute to moderate foraminal narrowing. C3-C4: Bilateral uncovertebral hypertrophy contributes to bilateral moderate foraminal narrowing. C4-C5: Disc height loss contributes to bilateral foraminal narrowing. C5-C6: Disc height loss contributes to bilateral foraminal narrowing. Posterior disc osteophyte complex contributes to mild spinal canal narrowing. C6-C7: Disc height loss and uncovertebral hypertrophy contribute to mild bilateral foraminal narrowing. C7-T1: No significant disc/facet abnormality, spinal stenosis, or foraminal stenosis. CONCLUSION: 1. No appreciable acute osseous abnormality. 2. Multilevel degenerative changes resulting in degrees of foraminal narrowing. 3. Right apical ill-defined density, this most likely represents scar though underlying process not excluded. Consider followup CT chest to evaluate stability. Dictated by: Caitlyn Rich MD on 12/07/2016 at 10:10 Approved by: Caitlyn Rich MD on 12/07/2016 at 10:20 Normal [facility] CT FACIAL BONES W/O CONTRAST on 12-07-2016 CT FACIAL BONES W/O CONTRAST [address] [address] Patient: ESTHER CHAWLA Phone#: : 1935 Age: 81 Gender: F Pt. Type: ER Account: [id number] Location: 052 Ordering: AURELIO Theron KAMRAN Exam Date: 12/07/2016/1:58 Family Phys: TALAMYSAS Charge Code: [id number] Physician: [facility] Order #: [id number] DLP Dose#: 30.50 PROCEDURE: CT FACIAL BONES WITHOUT CONTRAST COMPARISON: None. INDICATIONS: Trauma TECHNIQUE: After obtaining the patient's consent, CT images were created without non-ionic intravenous contrast. All CT scans at this facility use dose modulation, iterative reconstruction, and/or weight based dosing when appropriate to reduce radiation dose to as low as reasonably achievable. IV CONTRAST: No IV contrast used,0ml TOTAL DOSE: 30.50 CTDIvol(mGy) FINDINGS: FACIAL BONES: There is a nondisplaced fracture of the left maxillary sinus, it extends to the through the floor of the maxillary sinus involving the posterior lateral and anterior medial corners. The fracture line extends to the left anterior aspect of the hard palate. SINUSES: There is hypodense material layering in the left maxillary sinus. There are paradoxical middle turbinates. There is right middle turbinate sarah bullosa. There is mild ethmoid air cell mucosal thickening. NASAL FOSSA: Mild wall rightward deviation of the nasal septum. SKULL BASE: Normal. No mass or bone destruction. ORBITS: Nome ocular lenses are absent. No orbital wall fracture. CAVERNOUS SINUS: Symmetric appearance with no visible lesion. SALIVARY GLANDS: Normal. The parotid and submandibular glands are unremarkable. Continued Report - Page 2 of 2 Patient: ESTHER CHAWLA Phone#: : 1935 Age: 81 Gender: F MRN: Pt. Type: ER Account: [id number] Location: 052 Ordering: AURELIO Crump KAMRAN Exam Date: 12/07/2016/1:58 Family Phys: TALAMYSAS Charge Code: [id number] Physician: [facility] Order #: [id number] DLP Dose#: 30.50 OTHER: Normal. The nasopharynx, oropharynx, and oral cavity are unremarkable. No lymphadenopathy. There are degenerative changes of the temporomandibular joints. There is irregularity of the right zygomatic arch, likely related to remote trauma. CONCLUSION: 1. Nondisplaced fracture involving the left maxillary sinus with fluid layering in the sinus. Dictated by: Caitlyn Rich MD on 12/07/2016 at 10:30 Approved by: Caitlyn Rich MD on 12/07/2016 at 10:30 Normal [facility] EMERGENCY REPORTon 7 EMERGENCY REPORT [facility] EMERGENCY ROOM REPORT NAME NUMBER SEX AGE ADMIT DISC TYPE MED.RECORD# ESTHER CHAWLA [id number] F 80 11/17/2016 11/17/2016 Giuseppe [id number] ROOM: DATE OF :1935 PHYSICIAN NO.: PHYSICIAN NAME: PHYSICIAN:KRISHAN ESPANA CHIEF COMPLAINT: The patient came in. She had a skin tear when her car door hit her left calf. HISTORY OF PRESENT ILLNESS: She denies any fevers, chills, nausea, or vomiting. She was concerned and presented to the emergency department. Her tetanus was up to date. It was updated. PAST SURGICAL HISTORY: Appendectomy, cholecystectomy, hysterectomy, hiatal hernia. SOCIAL HISTORY: She does not smoke or drink. REVIEW OF SYSTEMS: Six systems were reviewed and negative except as mentioned above. PHYSICAL EXAMINATION: She is an awake, alert, oriented female in no acute distress. She is afebrile. Blood pressure 129/68, pulse 61, respirations 16, pulse oximetry 98% on room air. Head is normocephalic, atraumatic. Eyes: Pupils equal, round, and reactive to light. Extraocular muscles intact. Nares are patent. Throat has adequate moisture. Uvula is midline. Neck is supple without petechiae or rash. Heart without murmur. S1 equals S2. No S3 or S4 appreciated. Lungs are clear to auscultation bilaterally. No rales, rhonchi, or retractions. Abdomen: Soft, nontender, nondistended. Skin is warm and dry. EMERGENCY DEPARTMENT COURSE AND TREATMENT: We did clean and dress it. Her tetanus was updated. DIAGNOSIS: The patient's left calf has a contusion with a skin tear. PLAN/DISPOSITION: She was discharged in stable condition. She can follow up with Dr. Williamson in 3-5 days. D: KRISHAN ESPANA TD: 11/18/2016 06:32:48 JOB #: [id number] DOLORES Espana D.O. Emergency Department 11/21/16 19:29 Transcribed by: NMT 11/18/2016 06:32:48 Copy for: STEVEN Barriga III Copy for: PRANAV FERGUSON MD EMERGENCY ROOM REPORT ESTHER CHAWLA 1 Normal [facility] EMERGENCY REPORTon 7 EMERGENCY REPORT [facility] EMERGENCY ROOM REPORT NAME NUMBER SEX AGE ADMIT DISC TYPE MED.RECORD# ESTHER CHAWLA [id number] F 80 11/09/2016 E.ROmer [id number] ROOM:ER DATE OF :1935 PHYSICIAN NO.: PHYSICIAN NAME: PHYSICIAN:KRISHAN ESPANA CHIEF COMPLAINT/HISTORY OF PRESENT ILLNESS: Patient came in. She has been under a lot of stress recently. She is moving. She has been doing a lot of lifting. She complains of pain to her left side of her neck. She also had an area where she had stars in her left field for about 5 minutes. She presents to the emergency department. She called her eye doctor, they told her to come here. It has been resolved. She has been under a lot of stress, anxiety recently with her move, and she is here with her daughter, appears very concerned about her. PAST SURGICAL HISTORY: She had a hysterectomy, appendectomy, bowel surgery. SOCIAL HISTORY: She does not smoke or drink. REVIEW OF SYSTEMS: Ten systems reviewed; negative except as mentioned above. PHYSICAL EXAMINATION: She is awake, alert, oriented female in no acute distress. She is afebrile, pulse 61, respirations 18, blood pressure 132/71, pulse oximetry 97% on room air. Head is normocephalic, atraumatic. Eyes: Pupils equal, round, reactive to light. Extraocular muscles intact. Nares are patent. Throat has adequate oral moisture. Uvula is midline. Neck is supple without petechiae or rash. Heart without murmur. S1 equal to S2. No S3 or S4 appreciated. Lungs are clear to auscultation bilaterally. No rales, rhonchi, or retractions. Abdomen: Soft, nontender, nondistended. Skin is warm and dry. I note no focal deficits. Cranial nerves 2-12 intact. Speech is fluent. Gait and station intact. DIAGNOSTIC DATA: She had blood work. White count was 6000, H&H of 10.9, hematocrit of 33, platelet count of 266. She also had an EKG, showed a rate of 61, left axis deviation, right bundle branch block, no obvious ST elevations. I did look at her EKG from September 20, 2016, I see no obvious changes. DIAGNOSES: 1. Neck strain. 2. Stress. 3. Left eye visual disturbance, resolved, cause not clear. PLAN/DISPOSITION: She should follow up with her family doctor and her eye doctor, Dr. Myles, and return if any problems or concerns. She will be discharged home. D: KRISHAN ESPANA TD: 11/09/2016 19:03:13 JOB #: [id number] Krishan Espana D.O. Emergency Department 11/12/16 09:58 Transcribed by: NMAnmol 11/09/2016 19:03:13 Copy for: STEVEN Barriga III Copy for: PRANAV FERGUSON MD EMERGENCY ROOM REPORT ESTHER CHAWLA 1 Normal [facility] CBCon 11-09-2016 Basophils Auto #/vol (Bld) 0.10 x10EE3/UL Normal 0.00 - 0.10 [facility] Comment on above: Performed By: #### 2 28228 ####[place] [address] Basophils/100 WBC Auto (Bld) 1.0 % Normal 0.0 - 2.0 [facility] Comment on above: Performed By: #### 2 73146 ####[place] [address] Blood morphology N/A Normal [facility] Comment on above: Result Comment: {CD] Performed By: #### 2 39403 ####[place] [address] CBC Normal [facility] Comment on above: Result Comment: CBC- COMPLETE BLOOD COUNT Performed By: #### 2 45970 ####[facility],[address] [place] [address] Eosinophils 0.10 x10EE3/UL Normal 0.00 - 0.50 [facility] Comment on above: Performed By: #### 2 97276 ####[facility],[address] [place] [address] Eosinophils/100 leukocytes 1.6 % Normal 0.0 - 7.0 [facility] Comment on above: Performed By: #### 2 99054 ####[facility],[address] [place] [address] Erythrocyte distribution width Auto Ratio (RBC) 12.9 % Normal 12.0 - 15.6 [facility] Comment on above: Performed By: #### 2 53874 ####[facility],[address] [place] [address] Erythrocytes (RBC) 3.76 x 10EE6/UL Low 4.10 - 5.30 [facility] Comment on above: Performed By: #### 2 98671 ####[facility],[address] [place] [address] Hematocrit (HCT) 33.4 % Low 34.0 - 46.0 [facility] Comment on above: Performed By: #### 2 63374 ####[facility],[address] [place] [address] Hemoglobin mass conc (Bld) 10.9 g/dL Low 12.0 - 16.0 [facility] Comment on above: Performed By: #### 2 20325 ####[facility],[address] [place], [place] [id number] Lymphocytes 2.40 x10EE3/UL Normal 0.80 - 2.80 [facility] Comment on above: Performed By: #### 2 74398 ####[facility],[address] [place] [address] 39636 Lymphocytes/100 leukocytes 38.4 % Normal 20.0 - 45.0 [facility] Comment on above: Performed By: #### 2 79857 ####[facility],[address] [place] [address] MANUAL DIFF N/A Normal [facility] Comment on above: Performed By: #### 2 37812 ####[facility],[address] [place] [address] MCH 29 pg Normal 27 - 33 [facility] Comment on above: Performed By: #### 2 02628 ####[facility],[address] [place] [address] MCHC mass conc (RBC) 33 X10 3 Normal 32 - 36 [facility] Comment on above: Performed By: #### 2 79363 ####[facility],[address] [place] [address] MCV 89 fL Normal 80 - 99 [facility] Comment on above: Performed By: #### 2 47194 ####[facility],[address] [place] [address] 06847 Monocytes 0.70 x10EE3/UL Normal 0.20 - 1.00 [facility] Comment on above: Performed By: #### 2 50196 ####[facility],[address] [place] [address] MONOS % 11.7 % High 0.0 - 10.0 [facility] Comment on above: Performed By: #### 2 19179 ####[place] [id number] Neutrophils 2.90 x10EE3/UL Normal 1.50 - 7.10 [facility] Comment on above: Performed By: #### 2 34321 ####[facility],[address] [place] [address] 96624 Neutrophils/100 WBC Auto (Bld) 47.3 % Normal 46.0 - 76.0 [facility] Comment on above: Performed By: #### 2 30715 ####[facility],[address] [place] [address] 49342 Platelet mean volume (PMV) 7.7 fL Normal 6.6 - 10.5 [facility] Comment on above: Result Comment: AUTO MATED DIFFERENTIAL Performed By: #### 2 03492 ####[facility],[address] [place] [address] 38465 Platelets 266 x10EE3/UL Normal 150 - 450 [facility] Comment on above: Performed By: #### 2 20178 ####[facility],[address] [place] [address] 51677 WBC (Leukocytes) 6.1 x 10EE3/UL Normal 4.5 - 10.8 [facility] Comment on above: Performed By: #### 2 82243 ####[facility],[address] [place] [address] 38658 CMP with eGFRon 11-09-2016 Age 80 years Normal [facility] Comment on above: Performed By: #### 2 83802 ####[facility],[address] [place] [address] 67205 Albumin 3.9 g/dL Normal 3.4 - 4.8 [facility] Comment on above: Performed By: #### 2 86747 ####[facility],[address] [place] [address] 72221 Albumin/Globulin Ratio 1.7 {ratio} High 0.9 - 1.6 [facility] Comment on above: Performed By: #### 2 15815 ####[address] [address] ALK PHOS 75 U/L Normal 38 - 126 [facility] Comment on above: Performed By: #### 2 03197 ####[address] [address] ALT/SGPT 16 U/L Normal 8 - 35 [facility] Comment on above: Performed By: #### 2 42566 ####[facility],[address] [place] [address] 77336 Anion gap 9 mmol/L Low 10 - 20 [facility] Comment on above: Performed By: #### 2 01611 ####[facility],[address] [place] [address] 48819 AST/SGOT 17 U/L Normal 13 - 39 [facility] Comment on above: Performed By: #### 2 63413 ####[facility],[address] [place] [address] 71333 B/C RATIO 18 ratio Normal 0 - 30 [facility] Comment on above: Performed By: #### 2 66504 ####[facility],[address] [place] [address] 54510 Bilirubin (total) 0.2 mg/dL Normal 0.0 - 1.5 [facility] Comment on above: Performed By: #### 2 22664 ####[facility],[address] [place] [address] 67056 Calcium 8.8 mg/dL Normal 8.6 - 10.2 [facility] Comment on above: Performed By: #### 2 80418 ####[facility],[address] [place] [address] 59201 Chloride 105 mmol/L Normal 98 - 107 [facility] Comment on above: Performed By: #### 2 23297 ####[facility],[address] [place] [address] 38445 CO2 29.1 mmol/L Normal 21.0 - 31.0 [facility] Comment on above: Performed By: #### 2 24271 ####[facility],[address] [place] [address] 76622 Creatinine 0.6 mg/dL Normal 0.6 - 1.2 [facility] Comment on above: Performed By: #### 2 62418 ####[facility],[address] [place] [address] 93797 eGFR (non-black) Normal [facility] Comment on above: Result Comment: COMP REHENSIVE METABOLIC PANEL Performed By: #### 2 45942 ####[facility],[address] [place] [address] 10670 eGFR (non-black) mL/min/{1.73_m2} Normal 60 - 999 [facility] Comment on above: Result Comment: ACCO RDING TO THE NATIONAL KIDNEY DISEASE EDUCATION PROGRAM(NKDE), A NORMAL eGFRIS A VALUE GREATER THAN OR EQUAL TO 60 ML/MIN/1.73 SQ METERS.CHRONIC KIDNEY DISEASE: <60mL/MIN/1.73 SQ METERSKIDNEY FAILURE: <15mL/MIN/1.73 SQ METERSTHIS TEST SHOULD ONLY BE USED FOR PATIENTS 18 YEARS OF AGE AND OLDER. Performed By: #### 2 91722 ####[facility],[address] [place] [address] 76959 Globulin 2.3 g/dL Normal 1.5 - 3.8 [facility] Comment on above: Performed By: #### 2 47380 ####[facility],[address] [place] [address] 99867 Glucose mass conc 77 mg/dL Normal 74 - 106 [facility] Comment on above: Performed By: #### 2 78890 ####[facility],[address] [place] [address] 40823 Potassium molar conc 4.1 mmol/L Normal 3.5 - 5.1 [facility] Comment on above: Performed By: #### 2 76625 ####[facility],[address] [place] [address] 74868 Protein 6.2 g/dL Low 6.4 - 8.3 [facility] Comment on above: Performed By: #### 2 86773 ####[facility],[address] [place] [address] 47331 Sodium 139 mmol/L Normal 136 - 145 [facility] Comment on above: Performed By: #### 2 56925 ####[facility],[address] [place] [address] 56871 Urea nitrogen 11 mg/dL Normal 6 - 20 [facility] Comment on above: Performed By: #### 2 89038 ####[facility],[address] [place] [address] 79452 EMERGENCY REPORTon EMERGENCY REPORT [facility] EMERGENCY ROOM REPORT NAME NUMBER SEX AGE ADMIT DISC TYPE MED.RECORD# ESTHER CHAWLA [id number] F 80 09/20/2016 E.ROmer [id number] ROOM:ER DATE OF :1935 PHYSICIAN NO.:[id number] PHYSICIAN NAME: PHYSICIAN:Mandy Torres DO CHIEF COMPLAINT: Patient is a 80-year-old female, who presented for right backache and chest pain. HISTORY OF PRESENT ILLNESS: The patient states that the chest pain began at 0400 this morning, states that it has been intermittent; however, has been waxing and waning in intensity. The patient states that she went to the local fire department in which they did not run an EKG, told the patient that it was not her heart; however, she should probably go to the emergency room. The patient states that she did get 4 Aleve and states that she did take them; however, they did not resolve the patient's pain. The patient came to the ED as the chest pain and back pain was worsening in intensity. The patient states that she has had no other associated symptoms and came to the ED for this. PAST SURGICAL HISTORY: Hysterectomy and appendectomy with associated bowel surgery. ALLERGIES: Please see nurse's note. SOCIAL HISTORY: Does not smoke or drink. REVIEW OF SYSTEMS: Positive for right-sided back pain, chest pain. Remainder of review of systems is unremarkable. D: Mandy Torres DO TD: 09/20/2016 13:14:52 JOB #: [id number] MANDY TORRES DO EMERGENCY DEPARTMENT 10/31/16 07:40 Transcribed by: CHUY 09/20/2016 13:14:52 Copy for: ZEINA Mancuso DO Copy for: ERNIE MAYORGA MD EMERGENCY ROOM REPORT CAMMYESTHER Hermes 1 Normal [facility] EMERGENCY REPORT [facility] EMERGENCY ROOM REPORT NAME NUMBER SEX AGE ADMIT DISC TYPE MED.RECORD# ESTHER CHAWLA [id number] F 80 09/20/2016 09/20/2016 Giuseppe [id number] ROOM:ER DATE OF :1935 PHYSICIAN NO.:[id number] PHYSICIAN NAME:Tierra Klein PHYSICIAN:Mandy Torres DO CHIEF COMPLAINT: The patient is a 80-year-old female who presents for chest pain and back pain. HISTORY OF PRESENT ILLNESS: Patient states that she awoke this morning with intense right back pain near the right scapula that originated in the right chest and radiated posteriorly. The patient states that it has been constant sharp, stabbing pain; states that it has no other radiation, denies any associated symptoms. However, has taken 4 Aleve with no resolution. The patient states that she came to the ED today as the chest pain and back pain have persisted. The patient has no other acute symptoms at this time. PAST SURGICAL HISTORY: Hysterectomy, appendectomy with a bowel surgery. ALLERGIES: Penicillin, sulfa, NSAIDs, estradiol, tape, Climara, and Novocain. SOCIAL HISTORY: Does not smoke or drink. REVIEW OF SYSTEMS: Positive for back pain. Positive for chest pain. Remainder of review of systems unremarkable. PHYSICAL EXAMINATION: Vitals: Temperature 98.6, pulse 78, respirations 22, blood pressure 167/122, O2 saturation 96%. Constitutional: Mildly distressed, nontoxic appearing, alert and oriented. Cardiac: Regular rate and rhythm. Negative for murmurs, rubs, gallops. Positive S1 and S2. Pulmonary: Clear to auscultation bilaterally. Negative for wheezes, rales, or crackles. Abdomen is soft, nontender, nondistended. Normal bowel sounds in all 4 quadrants. Negative for Toledo's or McBurney's. MSK: Negative for lower extremity edema, ulceration, skin breakdown. Normal radial and DP pulses bilaterally. Chest wall: Marginal pain to palpation of the chest wall, as well as the back near the right scapula. DIAGNOSTIC DATA: Laboratory work: WBC of 7.5, hemoglobin 11.0, hematocrit 32.9, platelets 266. PT Coumadin 10.4, PTT 24.5, INR 0.9. Chemistry: BNP of 81. Troponins less than 0.01. Sodium 136, potassium 3.9, chloride 106, bicarbonate 22.8, BUN of 15, creatinine 0.6, calcium 8.7, glucose 92. AST 19, ALT 16. Alkaline phosphatase 72. Anion gap of 11. Chest AP shows streaky right lower lobe infiltrate. CT PE shows 1 right apical parenchymal scar versus nodular lesion is present. Apical pleural thickening is present. Streaky densities somewhat more prominent than on prior examination. No other acute abnormality is identified. EMERGENCY DEPARTMENT COURSE AND TREATMENT: The patient was given 1 g of Rocephin while in the ED. In addition, the patient did have an EKG on arrival that does show changes from her previous EKG with T-wave inversions in V2, 3 and 4; suggestive of possible anterior ischemia. The patient's troponin was negative; however, given the patient's history, as well as EKG changes, we felt that the patient should be transferred to a higher level of care in case the patient did eventually need to undergo cardiac catheterization. The patient was transferred to [place]. The patient was received by Cardiology, Dr. Quinones. The patient was nontoxic, alert and oriented, in no acute distress upon discharge. In addition, the patient was given 3 sublingual nitroglycerin, which did improve the patient's pain. The pain did return approximately an hour later, in which she did have nitroglycerin paste placed. DIAGNOSIS: At this time, the patient has been diagnosed with pneumonia. PLAN/DISPOSITION: At this time, given the symptoms with the improvement of the pain with the nitroglycerin, we felt transfer to higher level of care was the proper decision. The patient was agreeable and amenable to the plan, and had no further questions. EMERGENCY ROOM REPORT ESTHER CHAWLA [address] [place] [address] EMERGENCY ROOM REPORT NAME NUMBER SEX AGE ADMIT DISC TYPE MED.RECORD# ESTHER CHAWLA [id number] F 80 09/20/2016 09/20/2016 Linus.ROmer [id number] ROOM:ER DATE OF :1935 PHYSICIAN NO.:[id number] PHYSICIAN NAME:Tierra Klein PHYSICIAN:Mandy Torres DO D: Mandy Torres DO TD: 09/20/2016 20:00:03 JOB #: [id number] MANDY TORRES DO EMERGENCY DEPARTMENT 10/31/16 07:40 Transcribed by: NMT 09/20/2016 20:00:03 Copy for: ZEINA Mancuso DO Copy for: ERNIE MAYORGA MD EMERGENCY ROOM REPORT CAMMYESTHER M 2 Normal [facility] Discharge Note-Nursingon Discharge Note-Nursing Normal [facility] History and Physical (Blank) on 09-21-2016 History and Physical (Blank) Normal [facility] APTTon 09-20-2016 aPTT 24.5 s Normal 21.6 - 35.4 [facility] Comment on above: Performed By: #### 2 83802 ####[facility],[address] [place] [address] BNP (B-TYPE NATRIURETIC PEPT [place])on 09-20-2016 BNP 81 pg/mL Normal 1 - 100 [facility] Comment on above: Performed By: #### 2 54625 ####[facility],[address] [place] [address] CBCon 09-20-2016 Basophils Auto #/vol (Bld) 0.10 x10EE3/UL Normal 0.00 - 0.10 [facility] Comment on above: Performed By: #### 2 40371 ####[facility],[address] [place], [place] [address] Basophils/100 WBC Auto (Bld) 0.9 % Normal 0.0 - 2.0 [facility] Comment on above: Performed By: #### 2 26644 ####[facility],[address] [place] [address] 80039 Blood morphology N/A Normal [facility] Comment on above: Performed By: #### 2 48550 ####[facility],[address] [place] [address] CBC Normal [facility] Comment on above: Result Comment: CBC- COMPLETE BLOOD COUNT Performed By: #### 2 67830 ####[facility],[address] [place] [address] 62153 Eosinophils 0.00 x10EE3/UL Normal 0.00 - 0.50 [facility] Comment on above: Performed By: #### 2 14728 ####[facility],[address] [place] [address] 77780 Eosinophils/100 leukocytes 0.3 % Normal 0.0 - 7.0 [facility] Comment on above: Performed By: #### 2 92536 ####[facility],[address] [place] [address] Erythrocyte distribution width Auto Ratio (RBC) 12.8 % Normal 12.0 - 15.6 [facility] Comment on above: Performed By: #### 2 80958 ####[facility],[address] [place] [address] Erythrocytes (RBC) 3.76 x 10EE6/UL Low 4.10 - 5.30 [facility] Comment on above: Performed By: #### 2 38686 ####[facility],[address] [place] [address] Hematocrit (HCT) 32.9 % Low 34.0 - 46.0 [facility] Comment on above: Performed By: #### 2 82379 ####[facility],[address] [place] [address] Hemoglobin mass conc (Bld) 11.0 g/dL Low 12.0 - 16.0 [facility] Comment on above: Performed By: #### 2 92090 ####[facility],[address] [place] [address] 44645 Lymphocytes 2.00 x10EE3/UL Normal 0.80 - 2.80 [facility] Comment on above: Performed By: #### 2 97702 ####[facility],[address] [place] [address] 85844 Lymphocytes/100 leukocytes 26.4 % Normal 20.0 - 45.0 [facility] Comment on above: Performed By: #### 2 47246 ####[facility],[address] [place] [address] MANUAL DIFF N/A Normal [facility] Comment on above: Performed By: #### 2 70440 ####[facility],[address] [place] [address] 64167 MCH 29 pg Normal 27 - 33 [facility] Comment on above: Performed By: #### 2 65821 ####[facility],[address] [place] [address] 08103 MCHC mass conc (RBC) 34 X10 3 Normal 32 - 36 [facility] Comment on above: Performed By: #### 2 15554 ####[facility],[address] [place] [address] 21594 MCV 88 fL Normal 80 - 99 [facility] Comment on above: Performed By: #### 2 46701 ####[facility],[address] [place] [address] 50536 Monocytes 0.70 x10EE3/UL Normal 0.20 - 1.00 [facility] Comment on above: Performed By: #### 2 53414 ####[facility],[address] [place] [address] 07106 MONOS % 9.1 % Normal 0.0 - 10.0 [facility] Comment on above: Performed By: #### 2 70242 ####[facility],[address] [place] [address] 90819 Neutrophils 4.70 x10EE3/UL Normal 1.50 - 7.10 [facility] Comment on above: Performed By: #### 2 73864 ####[facility],[address] [place] [address] 72827 Neutrophils/100 WBC Auto (Bld) 63.3 % Normal 46.0 - 76.0 [facility] Comment on above: Performed By: #### 2 05974 ####[facility],[address] [place] [address] 94974 Platelet mean volume (PMV) 7.5 fL Normal 6.6 - 10.5 [facility] Comment on above: Result Comment: AUTO MATED DIFFERENTIAL Performed By: #### 2 56457 ####[facility],[address] [facility] [address] Platelets 266 x10EE3/UL Normal 150 - 450 [facility] Comment on above: Performed By: #### 2 78155 ####[facility],[address] [facility] [address] WBC (Leukocytes) 7.5 x 10EE3/UL Normal 4.5 - 10.8 [facility] Comment on above: Performed By: #### 2 52977 ####[facility],[address] [place] [address] 09510 CHEST APon 09-20-2016 CHEST AP [facility] [address] [place] [address] Patient: ESTHER CHAWLA Phone#: : 1935 Age: 80 Gender: F Pt. Type: ER Account: [id number] Location: [facility] Ordering: MANDY TORRES Exam Date: 09/20/2016/12:09 Family Phys: ESVINABHIOREN Charge Code: [id number] Physician: [facility] Order #: [id number] DLP Dose#: PROCEDURE: X-RAY CHEST AP 1 VIEW COMPARISON: [facility], XR, CHEST PA/LAT, 12/06/2013, 17:13. INDICATIONS: Chest pain FINDINGS: LUNGS: Streaky right lower lobe infiltrate is present. This is a new finding since prior exam. VASCULATURE: Normal. Unremarkable pulmonary vasculature. CARDIAC: Normal. No cardiac silhouette abnormality or cardiomegaly. MEDIASTINUM: Normal. No visible mass or adenopathy. PLEURA: Normal. No effusion or pleural thickening. BONES: Normal. No fracture or visible bony lesion. OTHER: Negative. CONCLUSION: 1. Streaky right lower lobe infiltrate. Dictated by: Ritika Baugh MD on 09/20/2016 at 12:59 Approved by: Ritika Baugh MD on 09/20/2016 at 12:59 Normal [facility] CMP with eGFRon 09-20-2016 Age 80 years Normal [facility] Comment on above: Performed By: #### 2 56755 ####[facility],[address] [place] [address] 98923 Albumin 3.9 g/dL Normal 3.4 - 4.8 [facility] Comment on above: Performed By: #### 2 35959 ####[facility],[address] [place] [address] 54849 Albumin/Globulin Ratio 1.6 {ratio} Normal 0.9 - 1.6 [facility] Comment on above: Performed By: #### 2 00795 ####[facility],[address] [place] [address] 60167 ALK PHOS 72 U/L Normal 38 - 126 [facility] Comment on above: Performed By: #### 2 39406 ####[facility],[address] [place] [address] 50156 ALT/SGPT 16 U/L Normal 8 - 35 [facility] Comment on above: Performed By: #### 2 65050 ####[facility],[address] [place] [address] 80145 Anion gap 11 mmol/L Normal 10 - 20 [facility] Comment on above: Performed By: #### 2 39643 ####[facility],[address] [place] [address] 40185 AST/SGOT 19 U/L Normal 13 - 39 [facility] Comment on above: Performed By: #### 2 31980 ####[facility],[address] [place] [address] 78731 B/C RATIO 25 ratio Normal 0 - 30 [facility] Comment on above: Performed By: #### 2 [id number] ####[facility],[address] [place] [address] 17075 Bilirubin (total) 0.4 mg/dL Normal 0.0 - 1.5 [facility] Comment on above: Performed By: #### 2 65365 ####[facility],[address] [place] [address] 10882 Calcium 8.7 mg/dL Normal 8.6 - 10.2 [facility] Comment on above: Performed By: #### 2 95871 ####[facility],[address] [place] [address] 75400 Chloride 106 mmol/L Normal 98 - 107 [facility] Comment on above: Performed By: #### 2 07675 ####[facility],[address] [place] [address] 36375 CO2 22.8 mmol/L Normal 21.0 - 31.0 [facility] Comment on above: Performed By: #### 2 08219 ####[facility],[address] [place] [address] 03856 Creatinine 0.6 mg/dL Normal 0.6 - 1.2 [facility] Comment on above: Performed By: #### 2 60838 ####[facility],[address] [place] [address] 81918 eGFR (non-black) mL/min/{1.73_m2} Normal 60 - 999 [facility] Comment on above: Result Comment: ACCO RDING TO THE NATIONAL KIDNEY DISEASE EDUCATION PROGRAM(NKDE), A NORMAL eGFRIS A VALUE GREATER THAN OR EQUAL TO 60 ML/MIN/1.73 SQ METERS.CHRONIC KIDNEY DISEASE: <60mL/MIN/1.73 SQ METERSKIDNEY FAILURE: <15mL/MIN/1.73 SQ METERSTHIS TEST SHOULD ONLY BE USED FOR PATIENTS 18 YEARS OF AGE AND OLDER. Performed By: #### 2 38384 ####[facility],[address] [place] [address] 37498 eGFR (non-black) Normal [facility] Comment on above: Result Comment: COMP REHENSIVE METABOLIC PANEL Performed By: #### 2 31646 ####[facility],[address] [place] [address] 05942 Globulin 2.5 g/dL Normal 1.5 - 3.8 [facility] Comment on above: Performed By: #### 2 94275 ####[address] [address] Glucose mass conc 92 mg/dL Normal 74 - 106 [facility] Comment on above: Performed By: #### 2 53997 ####[facility],[address] [place], [place] [id number] Potassium molar conc 3.9 mmol/L Normal 3.5 - 5.1 [facility] Comment on above: Performed By: #### 2 02414 ####[facility],[address] [place], [place] [id number] Protein 6.4 g/dL Normal 6.4 - 8.3 [facility] Comment on above: Performed By: #### 2 04921 ####[facility],[address] [place] [address] Sodium 136 mmol/L Normal 136 - 145 [facility] Comment on above: Performed By: #### 2 70758 ####[facility],[address] [place] [address] 42980 Urea nitrogen 15 mg/dL Normal 6 - 20 [facility] Comment on above: Performed By: #### 2 81768 ####[place] [address] [address] CHEST (PE PROTOCOL)on CT CHEST (PE PROTOCOL) [place] [address] Patient: ETSHER CHAWLA Phone#: : 1935 Age: 80 Gender: F Pt. Type: ER Account: [id number] Location: [facility] Ordering: MANDY TORRES Exam Date: 09/20/2016/13:28 Family Phys: TALABHISAS Charge Code: [id number] Physician: [facility] Order #: [id number] DLP Dose#: 2.30 PROCEDURE: CT CHEST WITH CONTRAST FOR PE COMPARISON: [facility], CT, CHEST PE W CON, 12/06/2013, 19:22. INDICATIONS: Pain TECHNIQUE: After obtaining the patient's consent, CT images were obtained with non-ionic intravenous contrast material. Multi-planar images were created to optimize visualization of vascular anatomy with MPR/MIPS and 3D imaging. All CT scans at this facility use dose modulation, iterative reconstruction, and/or weight based dosing when appropriate to reduce radiation dose to as low as reasonably achievable. IV CONTRAST: Omnipaque 350,58ml TOTAL DOSE: 2.30 CTDIvol(mGy) FINDINGS: VASCULATURE: Normal. No visible pulmonary arterial thrombus or attenuation. AORTA: Normal. No aneurysm or dissection. LUNGS: Streaky density is present in the right apex may be related to chronic parenchymal scarring. The finding is somewhat more prominent than on prior exam. No other focal infiltrate or mass is identified MARCY: Normal. No mass or adenopathy. MEDIASTINUM: Normal. No mass or adenopathy. CARDIAC: Normal. No enlargement, pericardial thickening, or significant calcification. PLEURA: Normal. No mass or effusion. CHEST WALL: Normal. No mass or axillary adenopathy. LIMITED ABDOMEN: Normal. Limited images of the upper abdomen are unremarkable. Continued Report - Page 2 of 2 Patient: ESTHER CHAWLA Phone#: : 1935 Age: 80 Gender: F Pt. Type: ER Account: [id number] Location: [facility] Ordering: MANDY TORRES Exam Date: 09/20/2016/13:28 Family Phys: CARROL Charge Code: [id number] Physician: [facility] Order #: [id number] DLP Dose#: 2.30 BONES: Degenerative changes of the spine are present. There is deformity of the sternum consistent with remote healed fracture. OTHER: Negative. CONCLUSION: 1. Right apical parenchymal scar versus nodular lesion is present. Apical pleural thickening is present. Streaky density is somewhat more prominent than on prior exam. 2. No other acute abnormality is identified. Dictated by: Ritika Baugh MD on 09/20/2016 at 14:08 Approved by: Ritika Baugh MD on 09/20/2016 at 14:08 Normal [facility] Depart Summaryon 09-20-2016 Depart Summary Normal [facility] Inpatient Patient Summaryon 09-20-2016 Inpatient Patient Summary Normal [facility] PROTHROMBIN TIME AND INRon 0 09-20-2016 INR Coag RelTime (Bld) Normal [facility] Comment on above: Result Comment: PROT HROMBIN TIME AND INR Performed By: #### 2 [id number] ####[facility],[address] [place], [place] [address] INR Coag RelTime (PPP) 0.9 {INR} Normal 0.8 - 1.2 [facility] Comment on above: Result Comment: T HE HEMOSIL THROMBOPLASTIN REAGENT USED IN THE PROTHROMBIN TIMETEST INTERACTS WITH THE DRUG CUBICIN (DAPTOMYCIN) AND WILL RESULTIN FALSELY ELEVATED PT / INR RESULTS INR INTERPRETATION INR INDICATION PREVENTION AND TREATMENT OF THROMBOEMBOLISM ASSOCIATED WITH: 2.0 - 3.0 ATRIAL FIBRILLATION, BIOPROSTHETIC HEART VALVES, PULMONARY EMBOLISM, VENOUS THROMBOSIS, SYSTEMIC EMBOLISM POST MYOCARDIAL INFARCTION 2.5 - 3.5 MECHANICAL HEART VALVES Performed By: #### 2 20060 ####[facility],[address] [place], [place] [id number] PT-COUMADIN 10.4 sec Normal [facility] Comment on above: Performed By: #### 2 60504 ####[facility],[address] [place], [place] [id number] TROPONINon 09-20-2016 Troponin I.cardiac mass conc ng/mL Normal 0.00 - 0.05 [facility] Comment on above: Result Comment: Elev ated troponin (above the 99th percentile) usually indicates myocardialischemia. Results must be interpreted within the clinical setting.1.Non-ischemic pathology can also cause elevated troponin levels (e.g., acute pulmonary embolism, myocarditis, pericarditis, heart failure, intracranial injury, rhabdomyolisis, sepsis, shock and renal insufficiency).2.Approximately 1% of healthy adults have elevated troponin levels.3.Analytical false positive results rarely occur(due to multiple interferences such as heterophile antibodies). Performed By: #### 2 19334 ####[facility],[address] [facility] [address] Vital Signs Date Time Vital Sign Value Performing Clinician Facility 11-26-2023 11:00-0400 Body mass index (BMI) [Ratio] 19.92 kg/m2 Orestes Hooks APRN.[employer] Work Phone: [facility] 11-26-2023 11:00-0400 Body temperature 97.81 [degF] Orestes Hooks APRN.[employer] Work Phone: [facility] 11-26-2023 11:00-0400 Body weight 49.4 kg Orestes Hooks APRN.[employer] Work Phone: [facility] 11-26-2023 11:00-0400 Diastolic blood pressure 70 mm[Hg] Orestes Hooks APRN.[employer] Work Phone: [facility] 11-26-2023 11:00-0400 Heart rate 68 /min Orestes Hooks APRN.[employer] Work Phone: [facility] 11-26-2023 11:00-0400 Respiratory rate 16 /min Orestes Hooks APRN.[employer] Work Phone: [facility] 11-26-2023 11:00-0400 SaO2% (BldA) [Mass fraction] 99 % Orestes Hooks APRN.[employer] Work Phone: [facility] 11-26-2023 11:00-0400 Systolic blood pressure 122 mm[Hg] Orestes Hooks APRN.[employer] Work Phone: [facility] 06-08-2023 10:16-0400 Body temperature 97.11 [degF] Ronnie Moomaw GANG HEMSTITCHING MACHINE OPERATOR.[employer] Work Phone: [facility] 06-08-2023 10:16-0400 Body weight 46.4 kg Ronnie Moomaw GANG HEMSTITCHING MACHINE OPERATOR.[employer] Work Phone: [facility] 06-08-2023 10:16-0400 Diastolic blood pressure 78 mm[Hg] Ronnie Moomaw GANG HEMSTITCHING MACHINE OPERATOR.[employer] Work Phone: [facility] 06-08-2023 10:16-0400 Heart rate 63 /min Ronnie Moomaw GANG HEMSTITCHING MACHINE OPERATOR.[employer] Work Phone: [facility] 06-08-2023 10:16-0400 Respiratory rate 18 /min Ronnie Moomaw GANG HEMSTITCHING MACHINE OPERATOR.[employer] Work Phone: [facility] 06-08-2023 10:16-0400 SaO2% (BldA) [Mass fraction] 98 % Ronnie Moomaw GANG HEMSTITCHING MACHINE OPERATOR.[employer] Work Phone: [facility] 06-08-2023 10:16-0400 Systolic blood pressure 118 mm[Hg] Ronnie Moomaw GANG HEMSTITCHING MACHINE OPERATOR.[employer] Work Phone: [facility] 06-03-2023 12:57-0400 Body temperature 97.5 [degF] Dinora Klein GANG HEMSTITCHING MACHINE OPERATOR.[employer] Work Phone: [facility] 06-03-2023 12:57-0400 Body weight 46.2 kg Dinora Klein GANG HEMSTITCHING MACHINE OPERATOR.[employer] Work Phone: [facility] 06-03-2023 12:57-0400 Diastolic blood pressure 70 mm[Hg] Dinora Klein GANG HEMSTITCHING MACHINE OPERATOR.[employer] Work Phone: [facility] 06-03-2023 12:57-0400 Heart rate 70 /min Dinora Klein GANG HEMSTITCHING MACHINE OPERATOR.[employer] Work Phone: [facility] 06-03-2023 12:57-0400 Respiratory rate 18 /min Dinora Klein GANG HEMSTITCHING MACHINE OPERATOR.[employer] Work Phone: [facility] 06-03-2023 12:57-0400 SaO2% (BldA) [Mass fraction] 98 % Dinora Klein GANG HEMSTITCHING MACHINE OPERATOR.[employer] Work Phone: [facility] 06-03-2023 12:57-0400 Systolic blood pressure 125 mm[Hg] Dinora Klein GANG HEMSTITCHING MACHINE OPERATOR.[employer] Work Phone: [facility] 12-24-2022 18:37-0400 Body temperature 98.4 [degF] Tracey Valle GANG HEMSTITCHING MACHINE OPERATOR.[employer] Work Phone: [facility] 12-24-2022 18:37-0400 Body weight 45.81 kg Tracey Praisler-Wood GANG HEMSTITCHING MACHINE OPERATOR.[employer] Work Phone: [facility] 12-24-2022 18:37-0400 Diastolic blood pressure 78 mm[Hg] Tracey Praisler-Wood GANG HEMSTITCHING MACHINE OPERATOR.[employer] Work Phone: [facility] 12-24-2022 18:37-0400 Heart rate 84 /min Tracey Praisler-Wood GANG HEMSTITCHING MACHINE OPERATOR.[employer] Work Phone: [facility] 12-24-2022 18:37-0400 Respiratory rate 18 /min Tracey Praisler-Wood GANG HEMSTITCHING MACHINE OPERATOR.[employer] Work Phone: [facility] 12-24-2022 18:37-0400 SaO2% (BldA) [Mass fraction] 99 % Tracey Praisler-Wood GANG HEMSTITCHING MACHINE OPERATOR.[employer] Work Phone: [facility] 12-24-2022 18:37-0400 Systolic blood pressure 126 mm[Hg] Tracey Praisler-Wood GANG HEMSTITCHING MACHINE OPERATOR.[employer] Work Phone: [facility] 08-26-2022 14:03-0400 Body temperature 98.2 [degF] Tani Pendlebury GANG HEMSTITCHING MACHINE OPERATOR.[employer] Work Phone: [facility] 08-26-2022 14:03-0400 Body weight 45.9 kg Tani Pendlebury GANG HEMSTITCHING MACHINE OPERATOR.[employer] Work Phone: [facility] 08-26-2022 14:03-0400 Diastolic blood pressure 80 mm[Hg] Tani Pendlebury GANG HEMSTITCHING MACHINE OPERATOR.[employer] Work Phone: [facility] 08-26-2022 14:03-0400 Heart rate 88 /min Tani Pendlebury GANG HEMSTITCHING MACHINE OPERATOR.[employer] Work Phone: [facility] 08-26-2022 14:03-0400 Respiratory rate 18 /min Tani Pendlebury GANG HEMSTITCHING MACHINE OPERATOR.[employer] Work Phone: [facility] 08-26-2022 14:03-0400 SaO2% (BldA) [Mass fraction] 96 % [facility] GANG HEMSTITCHING MACHINE OPERATOR.[employer] Work Phone: [facility] 08-26-2022 14:03-0400 Systolic blood pressure 128 mm[Hg] [facility] GANG HEMSTITCHING MACHINE OPERATOR.[employer] Work Phone: [facility] 08-17-2022 17:49-0400 Body temperature 98.6 [degF] Tani [facility] GANG HEMSTITCHING MACHINE OPERATOR.[employer] Work Phone: [facility] 08-17-2022 17:49-0400 Body weight 44.73 kg [facility] GANG HEMSTITCHING MACHINE OPERATOR.[employer] Work Phone: [facility] 08-17-2022 17:49-0400 Diastolic blood pressure 74 mm[Hg] [facility] GANG HEMSTITCHING MACHINE OPERATOR.[employer] Work Phone: [facility] 08-17-2022 17:49-0400 Heart rate 84 /min [facility] GANG HEMSTITCHING MACHINE OPERATOR.[employer] Work Phone: [facility] 08-17-2022 17:49-0400 Respiratory rate 16 /min [facility] GANG HEMSTITCHING MACHINE OPERATOR.[employer] Work Phone: [facility] 08-17-2022 17:49-0400 SaO2% (BldA) [Mass fraction] 96 % [facility] GANG HEMSTITCHING MACHINE OPERATOR.[employer] Work Phone: [facility] 08-17-2022 17:49-0400 Systolic blood pressure 120 mm[Hg] Tani [facility] GANG HEMSTITCHING MACHINE OPERATOR.[employer] Work Phone: [facility] 07-16-2020 14:30-0400 Body height 157.5 cm Jessica Cano APRN [employer] Work Phone: [employer] [facility] 07-16-2020 14:30-0400 Body mass index (BMI) [Ratio] 18.84 kg/m2 Jessica Cano APRN [employer] Work Phone: [employer] 07-16-2020 14:30-0400 Body weight 46.72 kg Jessica Cano APRN [employer] Work Phone: [facility] 07-16-2020 14:30-0400 Diastolic blood pressure 64 mm[Hg] Jessica Cano APRN [employer] Work Phone: [facility] 07-16-2020 14:30-0400 Heart rate 71 /min Jessica Cano APRN [employer] Work Phone: [facility] [employer] 07-16-2020 14:30-0400 Systolic blood pressure 118 mm[Hg] Jessica Cano APRN [employer] Work Phone: [facility] Encounters Encounter Date Encounter Type Care Provider Facility Start: 11-26-2023 End: 11-27-2023 Telephone encounter Orestes Geo YEBOAH.[employer] Work Phone: [facility] Comment on above: Results Start: 11-26-2023 End: 11-26-2023 Subsequent hospital visit by physician Alda [facility] Work Phone: Radiology Comment on above: Pain [R52] Start: 11-26-2023 End: 11-26-2023 ambulatory [facility] Facility:[facility] Start: 11-26-2023 End: 11-26-2023 Patient encounter procedure Orestes Geo YEBOAH.[employer] Work Phone: [facility] Comment on above: Pain (Primary Dx) Start: 10-24-2023 End: 10-24-2023 [facility] Facility:[facility] Start: 10-24-2023 End: 10-24-2023 Patient encounter procedure Edna Tere GANG HEMSTITCHING MACHINE OPERATOR.[employer] Work Phone: [facility] Comment on above: Left leg pain (Prima ry Dx) Start: 06-08-2023 End: 06-08-2023 ambulatory [facility] Facility:[facility] Start: 06-08-2023 End: 06-08-2023 Patient encounter procedure Ronnie Salmeronw GANG HEMSTITCHING MACHINE OPERATOR.[employer] Work Phone: [facility] Comment on above: Acute cough (Primary Dx) Start: 06-03-2023 End: 06-03-2023 Subsequent hospital visit by physician Alda [facility] Work Phone: Radiology Comment on above: Pain of right upper extremity [M79.601] Start: 06-03-2023 End: 06-03-2023 [facility] Facility:[facility] Start: 06-03-2023 End: 06-03-2023 Patient encounter procedure Dinora Klein GANG HEMSTITCHING MACHINE OPERATOR.[employer] Work Phone: [facility] Comment on above: Pain of right upper extremity (Primary Dx); Acute midline thoracic back pain; Compression fracture of L1 vertebra, initial encounter ([facility]) Start: 12-25-2022 End: 12-25-2022 [facility] Facility:[facility] Start: 12-25-2022 End: 12-25-2022 Patient encounter procedure Tracey Valle APRN.[employer] Work Phone: [facility] Comment on above: Laceration of left h and without foreign body, subsequent encounter (Primary Dx) Start: 12-24-2022 End: 12-24-2022 [facility] Facility:[facility] Start: 12-24-2022 End: 12-24-2022 Patient encounter procedure Tracey Valle APRN.[employer] Work Phone: [facility] Comment on above: Laceration of muscle of left hand (Primary Dx) Start: 11-23-2022 End: 11-23-2022 Patient encounter procedure Momo Gongora APRN.[employer] Work Phone: [facility] Comment on above: Injury of head, init ial encounter (Primary Dx) Start: 08-31-2022 End: 08-31-2022 Patient encounter procedure Mandy Olsen Work Phone: Podiatry Comment on above: Contusion of foot, u nspecified laterality, initial encounter (Primary Dx); Acute right ankle pain; Foot injury, right, initial encounter; Peripheral vascular disease (HCC); Nutritional marasmus (HCC) Start: 08-26-2022 End: 08-26-2022 Subsequent hospital visit by physician Alda [facility] Work Phone: Radiology Comment on above: Acute right ankle pa in [M25.571] Start: 08-26-2022 End: 08-26-2022 Office outpatient visit 15 minutes Tani Hardy APRN.[employer] Work Phone: [facility] Comment on above: Acute right ankle pa in (Primary Dx); Foot injury, right, initial encounter Start: 08-17-2022 End: 08-17-2022 Subsequent hospital visit by physician Alda [facility] Work Phone: Radiology Comment on above: Foot injury, right, initial encounter [S99.921A] Start: 08-17-2022 End: 08-17-2022 Office outpatient visit 15 minutes Tani Hardy APRN.[employer] Work Phone: [facility] Comment on above: Foot injury, right, initial encounter (Primary Dx) Start: 08-17-2022 Telephone encounter Tani randle APRN.DEBORA Work Phone: [facility] Comment on above: Results Start: 08-05-2020 End: 08-05-2020 Subsequent hospital visit by physician Jessica Cano APRN [employer] Work Phone: [facility] Comment on above: 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, bilateral Start: 07-16-2020 End: 07-16-2020 Office outpatient new 30 minutes Jessica Cano APRN [employer] Work Phone: [facility] Comment on above: 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, bilateral (Primary Dx) Start: 05-05-2020 End: 05-05-2020 Patient encounter procedure ARELI CAMPBELL [facility] Start: 03-21-2020 End: 03-21-2020 Patient encounter procedure TANI PATRICK [facility] Start: 03-19-2020 End: 03-19-2020 Patient encounter procedure TIERRA KLEIN [facility] Start: 09-21-2019 End: 09-21-2019 [facility] Start: 08-26-2019 Patient encounter procedure VINITA GANT [facility] Start: 08-24-2019 End: 08-25-2019 Emergency department patient visit LOUIS GALEAS LIZETH [facility] Start: 06-28-2017 End: 06-28-2017 Ambulatory ARELI CAMPBELL Facility:A Start: 03-15-2017 End: 03-15-2017 Ambulatory ARELI CAMPBELL Facility:[facility] Start: 01-26-2017 Ambulatory TIERRA MARTINEZ [facility] Start: 01-17-2017 End: 01-17-2017 Ambulatory TIERRA MARTINEZ [facility] Start: 01-14-2017 End: 01-14-2017 Ambulatory TEIRRA MARTINEZ [facility] Start: 01-09-2017 End: 01-09-2017 Emergency department patient visit TIERRA MARTINEZ [facility] Start: 12-28-2016 End: 12-29-2016 Emergency department patient visit TOMA GALEAS MARIAJOSE [facility] Start: 12-07-2016 End: 12-07-2016 Emergency department patient visit MARTY MARTINEZ [facility] Start: 11-17-2016 End: 11-17-2016 Emergency department patient visit [facility] Start: 11-09-2016 End: 11-09-2016 Emergency department patient visit KRISHAN Barriga [facility] Start: 09-20-2016 End: 09-20-2016 Ambulatory [facility] Facility:[facility] Start: 09-20-2016 End: 09-20-2016 Emergency department patient visit MANDY GALEAS ZEINA [facility] Start: 05-06-2015 Patient encounter status Nani Hardy GANG HEMSTITCHING MACHINE OPERATOR.[employer] Work Phone: [facility] Work Phone: Procedures Date Procedure Procedure Detail Performing Clinician Start: 11-26-2023 Radex ribs uni w/posteroant ch minimum 3 views Orestes Hooks GANG HEMSTITCHING MACHINE OPERATOR.[employer] Work Phone: Start: 06-03-2023 Radex forearm 2 views Benedicto Klein GANG HEMSTITCHING MACHINE OPERATOR.[employer] Work Phone: Start: 08-26-2022 Radex ankle complete minimum 3 views Tani Hardy GANG HEMSTITCHING MACHINE OPERATOR.[employer] Work Phone: Start: 08-17-2022 Radex foot complete minimum 3 views Tani Hardy GANG HEMSTITCHING MACHINE OPERATOR.DEBORA Work Phone: Plan of Treatment Date Care Activity Detail Author Start: 12-02-2032 Urine microalbumin profile DTaP,Tdap,Td Vaccine (3 - Td or Tdap) [facility] Start: 03-22-2026 Urine microalbumin profile [facility] Start: 11-13-2023 Covid-19 Vaccine ( season) Covid-19 Vaccine ( season) [facility] Start: 11-13-2023 Influenza vaccination Influenza Vacc ine (#1) [facility] Start: 03-14-2023 Advance Directive Discussion Advance Directive Discussion [facility] Start: 03-14-2023 [facility] Start: 11-12-2022 Covid-19 Vaccine ( season) Covid-19 Vaccine ( season) [facility] Start: 11-12-2022 Influenza vaccination Influenza Vacc ine (#1) [facility] Start: 03-14-2022 ADVANCE DIRECTIVE DISCUSSION ADVANCE DIRECTIVE DISCUSSION [facility] Start: 03-14-2022 DEPRESSION ASSESSMENT DEPRESSION ASS ESSMENT [facility] Start: 11-12-2020 Influenza vaccinatio n given INFLUENZA VACCINE (Season Ended) [facility] Start: 10-20-2020 End: 10-20-2020 Patient encounter procedure 10/20/2020 Appointment [facility] Sharona Brothers MD [address] [place] [id number] [phone] [facility] Start: 08-05-2020 End: 08-05-2020 Patient encounter procedure 08/05/2020 Appointment [facility] Jessica Cano APRN [employer] [address] [id number] [phone] [facility] Start: 06-12-2019 DIABETES SCREEN DIABETES SCREEN [facility] Start: 06-12-2019 Diabetes Screening Diabetes Screenin g [facility] Start: 11-10-2017 Screening for osteoporosis Bone Density Screening [facility] Start: 02-25-2015 Shingrix Vaccine (2 of 3) Shingrix Vaccine (2 of 3) [facility] Start: 2002 Fall risk assessment FALL RISK [facility] Start: 2002 Glaucoma screening GLAUCOMA/EY E EXAM AGE 65+ [facility] Start: 2002 Osteoporosis risk assessment done BONE DENSITY SCREENING [facility] Start: 1997 RSV Vaccine (1 - 1-d ose 60+ series) RSV Vaccine (1 - 1-dose 60+ series) [facility] Start: 12-01-1987 SHINGRIX VACCINE (1 of 2) SHINGRIX VACCINE (1 of 2) [facility] Start: 12-01-1987 Zoster vaccine hzv l donald for subcutaneous use ZOSTER (SHINGLES) VACCINE (1 of 2) [facility] Start: 1977 Screening mammography MAMMOGRAM G [facility] Start: 12-01-1955 ANNUAL WELLNESS VISIT ANNUAL WELLNES S VISIT [facility] Start: 12-01-1955 Depression Screening Depression Scre [facility] Start: 1949 Depression screening using PHQ-9 (Patient Health Questionnaire 9) score DEPRESSION SCREENING [facility] Start: 1948 Diphtheria + pertuss is + tetanus vaccine (product) DTAP/TDAP/TD VACCINE (1 - Tdap) [facility] Start: 05-30-1938 COVID-19 VACCINE (#1) COVID-19 VACCI NE (#1) [facility] End: 08-16-2021 Venous Insufficiency Study-Bilat Lower Ext Venous Insufficiency Study-Bilat Lower Ext Cardiac Services Routine Varicose veins of lower extremity with inflammation, bilateral 1 Occurrences starting 07/16/2020 until 08/16/2021 [facility] Comment on above: 1 Occurrences starti ng 07/16/2020 until 08/16/2021 End: 08-05-2020 Venous Insufficiency Study-Bilat Lower Ext Venous Insufficiency Study-Bilat Lower Ext Cardiac Services Routine Varicose veins of lower extremity with inflammation, bilateral 1 Occurrences starting 08/05/2020 until 08/05/2020 [facility] Comment on above: 1 Occurrences starti ng 08/05/2020 until 08/05/2020 Venous Insufficiency Study-Bilat Lower Ext Venous Insufficiency Study-Bilat Lower Ext Cardiac Services Routine Varicose veins of lower extremity with inflammation, bilateral 08/05/2020 4:10 PM EDT [facility] Immunizations Immunization Date Immunization Notes Care Provider Violette dupree 02-22-2022 influenza virus vaccine, unspecified formulation Momo Gongora GANG HEMSTITCHING MACHINE OPERATOR.[employer] Work Phone: [facility] 01-01-2019 influenza virus vaccine, unspecified formulation Jessica Cano GANG HEMSTITCHING MACHINE OPERATOR [employer] Work Phone: [facility] 03-22-2016 tetanus toxoid, redu laura diphtheria toxoid, and acellular pertussis vaccine, adsorbed Tani Pendlebury GANG HEMSTITCHING MACHINE OPERATOR.BOX MAKER WOOD Work Phone: [facility] 05-06-2015 pneumococcal conjuga te vaccine, 13 valent Tani Pendlebury GANG HEMSTITCHING MACHINE OPERATOR.BOX MAKER WOOD Work Phone: [facility] Work Phone: 12-18-2014 influenza, high dose seasonal, preservative-free Tani Pendlebury GANG HEMSTITCHING MACHINE OPERATOR.BOX MAKER [employer] Work Phone: [facility] 01-08-2014 influenza, seasonal, injectable Tani Pendlebury GANG HEMSTITCHING MACHINE OPERATOR.BOX MAKER WOOD Work Phone: [facility] 01-04-2013 influenza virus vaccine, unspecified formulation Tani Pendlebury GANG HEMSTITCHING MACHINE OPERATOR.BOX MAKER WOOD Work Phone: [facility] 12-27-2011 influenza virus vaccine, unspecified formulation Tani Pendlebury GANG HEMSTITCHING MACHINE OPERATOR.BOX MAKER WOOD Work Phone: [facility] 01-22-2010 influenza virus vaccine, unspecified formulation Tani Pendlebury GANG HEMSTITCHING MACHINE OPERATOR.BOX MAKER WOOD Work Phone: [facility] 12-14-2008 influenza virus vaccine, unspecified formulation Tani Pendlebury GANG HEMSTITCHING MACHINE OPERATOR.BOX MAKER WOOD Work Phone: [facility] Work Phone: 01-18-2008 influenza virus vaccine, unspecified formulation Tani Pendlebury GANG HEMSTITCHING MACHINE OPERATOR.BOX MAKER WOOD Work Phone: [facility] Work Phone: 01-23-2007 influenza virus vaccine, unspecified formulation [facility] GANG HEMSTITCHING MACHINE OPERATOR.BOX MAKER WOOD Work Phone: [facility] Work Phone: 01-11-2006 influenza virus vaccine, unspecified formulation Tani Dumontli GANG HEMSTITCHING MACHINE OPERATOR.BOX MAKER [employer]OD Work Phone: [facility] 02-09-2005 influenza virus vaccine, unspecified formulation Tanimiriam Dumontli GANG HEMSTITCHING MACHINE OPERATOR.BOX MAKER WOOD Work Phone: [facility] Work Phone: 02-09-2005 pneumococcal polysaccharide vaccine, 23 valent [facility] GANG HEMSTITCHING MACHINE OPERATOR.BOX MAKER WOOD Work Phone: [facility] Work Phone: 07-12-2004 tetanus and diphther ia toxoids, not adsorbed, for adult use Atnimiriam Dumontli GANG HEMSTITCHING MACHINE OPERATOR.BOX MAKER WOOD Work Phone: [facility] Work Phone: Payers Date Payer Category Payer Medicare ANTHEM MEDICARE ADVANTAGE ANTHEM HMO MEDICARE SR ADVANTAGE [id number] 2020-[facility] [phone] [address] [address] [place] [address] Medicare [id number] 2020 Unknown [id number] 2020 Medicare [id number] 2016 Unknown [id number] 2016 Medicare [id number] 1937 Unknown [id number] 1 1937 Unknown [id number] 1 1937 Unknown [id number] 1 1937 Unknown [id number] 1 1937 Unknown [id number] 1 1937 Unknown [id number] 1 1937 Unknown [id number] 1 Medicare [id number] Social History Date Type Detail Facility Start: 07-16-2020 Tobacco smoking stat us WVIS Never smoker [facility] Start: 07-16-2020 End: 08-17-2022 Tobacco use and exposure Never used [facility] Start: 07-16-2020 Alcohol intake Lifetime non-d andrey (finding) [facility] Start: 07-16-2020 History SDOH Alcohol Frequency 1 [facility] Start: 1935 Sex Assigned At Not on file G [facility] Start: 08-17-2022 End: 11-26-2023 Tobacco smoking status NHIS Ex-smoker [facility] Work Phone: History of tobacco use Current smoker [facility] Work Phone: History of tobacco use Cigarette Smoker C [facility] Work Phone: Start: 02-19-2020 End: 08-17-2022 Cigarettes smoked current (pack per day) - Reported 0.5 [facility] Start: 08-17-2022 End: 08-26-2022 Alcohol intake Current non-drinker of alcohol (finding) [facility] Start: 08-17-2022 Tobacco Comment quit 1992 [facility] Start: 02-19-2020 End: 11-23-2022 Tobacco use panel [facility] National Score (1-10 0), lower number is lower risk 70 [facility] Clinical Notes 11-25-2010 to 11-27-2023 Telephone Encounter - Kathie Francisco MA - 11/27/2023 9:14 AM EDTTelephone Encounter - Kathie Francisco MA - 11/27/2023 9:14 AM EDTTelephone Encounter - Kathie Francisco MA - 11/26/2023 2:45 PM EDT Note Date & Type Note Facility 11-27-2023 Telephone encounter Note notified pt. Kathie Francisco MA [facility] 11-27-2023 Miscellaneous Notes notified pt. Kathie Francisco MA Left message for patient to return call. Kathie Francisco MA Please call and let her know that xray was negative. Thank you documented in this encounter [facility] 11-26-2023 Telephone encounter Note Left message for patient to return call. Kathie Francisco MA [facility] 11-26-2023 Telephone encounter Note Please call and let her know that xray was negative. Thank you [facility] Work Phone: 11-26-2023 History of Present illness Narrative Radiology Service Progress Note PATIENT NAME: Esther Hill DATE OF SERVICE: November 26, 2023 TIME: 12:00 PM PATIENT IDENTITY VERIFICATION COMPLETED USING TWO (2) IDENTIFIERS: Name and Date of confirmed by patient verbally. FALL SCREENING: Has the patient had 2 falls in the last year or 1 fall with injury or currently using an Ambulatory Assistive Device (Walker, Cane, Wheelchair, Crutches, etc.)? No PATIENT GENDER DATA: Female. status: : No status: NO. PATIENT RELEVANT IMPLANT DATA REVIEWED: Yes PATIENT PRESENTS WITH AN IMPLANTABLE OR ATTACHED ARTISTS' BOOKING REPRESENTATIVE: No RADIOLOGY DEPARTMENT: General X-ray: Exam(s) Completed: Rib X-Ray: Right PERIPHERAL IV DATA: Not applicable SIGNED BY: HINA Villar) November 26, 2023 12:00 PM documented in this encounter [facility] 11-26-2023 Note HNO ID: [id number] Author: NANETTE NGUYEN RT (R) Service: Radiology Author Type: Technologist Type: Progress Notes Filed: 11/26/2023 12:12 Note Text: Radiology Service Progress Note PATIENT NAME: Esther Hill DATE OF SERVICE: November 26, 2023 TIME: 12:00 PM PATIENT IDENTITY VERIFICATION COMPLETED USING TWO (2) IDENTIFIERS: Name and Date of confirmed by patient verbally. FALL SCREENING: Has the patient had 2 falls in the last year or 1 fall with injury or currently using an Ambulatory Assistive Device (Walker, Cane, Wheelchair, Crutches, etc.)? No PATIENT GENDER DATA: Female. status: : No status: NO. PATIENT RELEVANT IMPLANT DATA REVIEWED: Yes PATIENT PRESENTS WITH AN IMPLANTABLE OR ATTACHED ARTISTS' BOOKING REPRESENTATIVE: No RADIOLOGY DEPARTMENT: General X-ray: Exam(s) Completed: Rib X-Ray: Right PERIPHERAL IV DATA: Not applicable SIGNED BY: RT Aurea(Philip) November 26, 2023 12:00 PM [facility] 11-26-2023 Note HNO ID: [id number] Author: ORESTES HOOKS APRN.[employer] Service: ? Author Type: Nurse Practitioner Type: Progress Notes Filed: 11/26/2023 14:23 Note Text: Subjective Patient came in with complaints of right-sided rib pain. Patient says has been going on for about a month. Patient denies any difficulty breathing. Patient denies any pain when she urinates. Patient denies any other symptoms. Patient denies known injury and said she was pulling weeds before the pain started. The history is provided by the patient. No english language learner teacher was used. Review of Systems Constitutional: Negative. Skin: Negative. Objective Physical Exam Constitutional: Appearance: Normal appearance. Cardiovascular: Rate and Rhythm: Normal rate and regular rhythm. Heart sounds: Normal heart sounds. Pulmonary: Effort: Pulmonary effort is normal. Breath sounds: Normal breath sounds. Musculoskeletal: Arms: Comments: Patient is tender in the area marked above when palpated. No deformities noted. Neurological: Mental Status: She is alert. 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 Anxiety 10/30/2013 Bartholin cyst 10/31/2014 Blood per rectum 10/14/2014 Bowel disease 2008 diverticulitis/03/18 of colon removed Cervical disc disorder [...] SURGICAL HISTORY OF bile duct surg @ [place] PAST SURGICAL HISTORY OF 03/2015 had vein [...] Tape (Rosins), Estradiol, Fleet Phospho-Soda Accu-Prep [Sodium Lmezyiawya-Obaysa-Fpz], Hydroxyzine, Novocain [Procaine Hcl], Nsaids (Non-Steroidal Anti-Inflammatory Drug), Penicillins, Premarin [Conjugated Estrogens], and Sulfa (Sulfonamide Antibiotics) MEDICATIONS benzonatate (TESSALON PERLES) 100 mg capsule Take 1 capsule by mouth three times a day as needed for cough for up to 12 doses. clopidogrel (PLAVIX) 75 mg tablet aspirin, enteric coated (ASPIRIN, ENTERIC COATED) 81 [...] MULTIVITAMIN ORAL Take by mouth once daily. (more content not included)... [facility] 11-26-2023 History of Present illness Narrative Images from the original note were not included. Subjective Patient came in with complaints of right-sided rib pain. Patient says has been going on for about a month. Patient denies any difficulty breathing. Patient denies any pain when she urinates. Patient denies any other symptoms. Patient denies known injury and said she was pulling weeds before the pain started. The history is provided by the patient. No english language learner teacher was used. Review of Systems Constitutional: Negative. Skin: Negative. Objective Physical Exam Constitutional: Appearance: Normal appearance. Cardiovascular: Rate and Rhythm: Normal rate and regular rhythm. Heart sounds: Normal heart sounds. Pulmonary: Effort: Pulmonary effort is normal. Breath sounds: Normal breath sounds. Musculoskeletal: Arms: Comments: Patient is tender in the area marked above when palpated. No deformities noted. Neurological: Mental Status: She is alert. 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 Anxiety 10/30/2013 Bartholin cyst 10/31/2014 Blood per rectum 10/14/2014 Bowel disease 2008 diverticulitis/03/18 of colon removed Cervical disc disorder [...] SURGICAL HISTORY OF bile duct surg @ [place] PAST SURGICAL HISTORY OF 03/2015 had vein [...] Tape (Rosins), Estradiol, Fleet Phospho-Soda Accu-Prep [Sodium Porxogmdvp-Votxet-Edr], Hydroxyzine, Novocain [Procaine Hcl], Nsaids (Non-Steroidal Anti-Inflammatory Drug), Penicillins, Premarin [Conjugated Estrogens], and Sulfa (Sulfonamide Antibiotics) MEDICATIONS benzonatate (TESSALON PERLES) 100 mg capsule Take 1 capsule by mouth three times a day as needed for cough for up to 12 doses. clopidogrel (PLAVIX) 75 mg tablet aspirin, enteric coated (ASPIRIN, ENTERIC COATED) 81 [...] (FLONASE) 50 mcg/actuation nasal spray Use 1 [place] in each nostril once daily. Cholecalciferol, Vitamin D3, 2,000 unit cap Take 1 tablet by mouth once daily. Potassium 99 mg tab Take 1 tablet by mouth as needed. (Patient not taking: Reported on 11/26/2023) diclofenac, EC, (VOLTAREN) 75 mg EC tablet Take 1 tablet by mouth twice daily as needed. For pain/inflammation. Take with food. White Petrolatum-Mineral Oil 57.3-42.5 % ointment Use 1 application in both eyes daily at bedtime. (Patient not taking: Reported on 11/26/2023) FAMILY HISTORY Problem Relation Age of Onset other (PNEUMONIA) Mother FROM THIS. Stroke Brother other (LUNG DISEASE) Sister copd smoker Social History Tobacco Use Smoking status: Former Current packs/day: 0.50 Average packs/day: 0.5 packs/day for 10.0 years (5.0 ttl pk-yrs) Types: Cigarettes Smokeless tobacco: Never Tobacco comments: quit 1992 Vaping Use Vaping status: Never Used Substance Use Topics Alcohol use: No Drug use: No ASSESSMENT/PLAN: 1. Pain - ICD9: 780.96, ICD10: R52 - XR RIBS/CHEST 3V AP RIB/OBLS/CXR RIGHT * * * * Physician Interpretation * * * * CHEST AND RIGHT RIBS CLINICAL HISTORY: Pain, right lower lung pain without injury TECHNIQUE: PA chest, AP and oblique ribs. COMPARISON: 07/01/2015 chest RESULT: Heart/mediastinum: Within normal limits. Lungs/pleura: No infiltrate, edema or mass. Chronic blunting of left costophrenic angle consistent with fibrosis. Bones: Right ribs and other visible bony structures are negative. Lines/tubes/devices: None visualized. IMPRESSION IMPRESSION: Negative right ribs. No acute findings in the chest. 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 Social Service Worker: IBETH Transcribe Date/Time: Nov 26 2023 2:13P Dictated by : COLLIN ARRIAGA MD Rest and follow up with pcp in a week if not improved. Orestes Hooks APRN.[employer] documented in this encounter [facility] 10-24-2023 Note HNO ID: [id number] Author: EDNA CARRANZA APRN.CNP Service: ? Author Type: Nurse Practitioner Type: Progress Notes Filed: 10/24/2023 15:38 Note Text: Triage Note: MO Esther Hill is a 87 year old female who presents today for CC of concern for blood clot in leg. She has a h/o of a DVT and has taken eliquis. Pain is the same as when she had a blood clot. She is no longer on eliquis. She was in [place] ED, and left due to wait. I advised that this time in day I could not get an US here in [place], and offered to check in [place], that to see her here in [facility] care I would need same day results. Patient declined visit and to go to [place], and will go back to [place] ED There were no vitals taken for this visit. Social History Tobacco Use Smoking status: Former Packs/day: 0.50 Years: 10.00 Additional pack years: 0.00 Total pack years: 5.00 Types: Cigarettes Smokeless tobacco: Never Tobacco comments: quit 1992 Vaping Use Vaping Use: Never used Substance Use Topics Alcohol use: No Drug use: No PAST MEDICAL HISTORY 06/10/2006: ACUTE GASTRITIS W/O HEMORRHAGE 10/14/2014: Anal fistula 10/30/2013: Anxiety 10/31/2014: Bartholin cyst 10/14/2014: Blood per rectum 2008: Bowel disease Comment: diverticulitis/03/18 of colon removed No date: Cervical disc disorder with radiculopathy Comment: had epidural injections 12/14/2005: Cervicalgia 06/10/2006: Dermatophytosis of nail No date: Diverticulosis of large intestine 01/03/2014: Dry eyes - Both Eyes No date: Dysphagia 01/30/2015: 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 Fosamax started. No date: Osteoporosis Comment: BMD 11/11/2015 No date: Peripheral vascular disease (HCC) No date: Personal history of unspecified urinary disorder 01/21/2014: Right shoulder pain 04/22/2012: SBO (small bowel obstruction) No date: SI joint arthritis 09/21/2012: Syncope 06/12/2014: Tear film insufficiency, unspecified - Both Eyes 01/21/2014: Tendinitis of right rotator cuff 06/21/2011: Vitamin D deficiency I have confirmed and edited as necessary, the [facility] ASSESSMENT/PLAN: 1. Left leg pain - ICD9: 729.5, ICD10: M79.605 Advised to go to ED for further treatment and evaluation. Diagnosis and treatment plan were discussed and questions were answered to the patient's satisfaction. Pt acknowledged understanding of concepts and follow up plan. Specific signs and symptoms that would indicate the need for higher level of care were discussed in detail warranting prompt ER evaluation. Edna Carranza APRN.[facility] 10-24-2023 History of Present illness Narrative Triage Note: HPI Esther iHll is a 87 year old female who presents today for CC of concern for blood clot in leg. She has a h/o of a DVT and has taken eliquis. Pain is the same as when she had a blood clot. She is no longer on eliquis. She was in [place] ED, and left due to wait. I advised that this time in day I could not get an US here in [place], and offered to check in [place], that to see her here in [facility] care I would need same day results. Patient declined visit and to go to [place], and will go back to [place] ED There were no vitals taken for this visit. Social History Tobacco Use Smoking status: Former Packs/day: 0.50 Years: 10.00 Additional pack years: 0.00 Total pack years: 5.00 Types: Cigarettes Smokeless tobacco: Never Tobacco comments: quit 1992 Vaping Use Vaping Use: Never used Substance Use Topics Alcohol use: No Drug use: No PAST MEDICAL HISTORY 06/10/2006: ACUTE GASTRITIS W/O HEMORRHAGE 10/14/2014: Anal fistula 10/30/2013: Anxiety 10/31/2014: Bartholin cyst 10/14/2014: Blood per rectum 2008: Bowel disease Comment: diverticulitis/03/18 of colon removed No date: Cervical disc disorder with radiculopathy Comment: had epidural injections 12/14/2005: Cervicalgia 06/10/2006: Dermatophytosis of nail No date: Diverticulosis of large intestine 01/03/2014: Dry eyes - Both Eyes No date: Dysphagia 01/30/2015: 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 Fosamax started. No date: Osteoporosis Comment: BMD 11/11/2015 No date: Peripheral vascular disease (HCC) No date: Personal history of unspecified urinary disorder 01/21/2014: Right shoulder pain 04/22/2012: SBO (small bowel obstruction) No date: SI joint arthritis 09/21/2012: Syncope 06/12/2014: Tear film insufficiency, unspecified - Both Eyes 01/21/2014: Tendinitis of right rotator cuff 06/21/2011: Vitamin D deficiency I have confirmed and edited as necessary, the [facility] ASSESSMENT/PLAN: 1. Left leg pain - ICD9: 729.5, ICD10: M79.605 Advised to go to ED for further treatment and evaluation. Diagnosis and treatment plan were discussed and questions were answered to the patient's satisfaction. Pt acknowledged understanding of concepts and follow up plan. Specific signs and symptoms that would indicate the need for higher level of care were discussed in detail warranting prompt ER evaluation. Edna Carranza APRN.DEBORA documented in this encounter [facility] 06-08-2023 Instructions Ronnie Vidal APRN.CNP - 06/08/2023 10:31 AM EDT RESPIRATORY INFECTION On exam I did not see any obvious signs that would be concerning for pneumonia. I do feel that your symptoms today are more consistent with a viral illness which should resolve in 4-8 days. GENERAL INFORMATION: An upper respiratory tract infection, or cold, is a viral infection of the airway passages. It can be caused by any one of almost 200 different viruses. Common symptoms include a runny or stuffy nose, sneezing, watery eyes, sore throat, cough, and slight fever. Colds are contagious, especially during the first 3 or 4 days and cannot be cured by antibiotics. They are spread by coughs, sneezes, and direct contact, especially [id number]. A respiratory tract infection usually clears up in a few days, but some people may be sick for a week or two. INSTRUCTIONS: 1. Be careful not to blow your nose too hard because this may cause a nosebleed. 2. Use a cool-mist humidifier (vaporizer) to increase air moisture. This will make it easier for you to breathe. Do not use hot steam. 3. Rest as much as possible and get plenty of sleep. 4. Wash your hands often, especially after you blow your nose. Cover your mouth and nose with a tissue when you sneeze or cough. 5. Drink plenty of clear fluids (8 glasses a day) such as water, fruit juice, tea, clear soups, and carbonated beverages. CONTACT YOUR DOCTOR IF : 1. Your fever lasts more than 3 days. 2. You have a sore throat that gets worse or you see white or yellow spots in your throat. 3. Your cough gets worse or lasts more than 10 days. 4. You develop a rash anywhere on your skin. 5. You have an earache or a headache. 6. You have thick greenish or yellowish discharge from your nose. RETURN IMMEDIATELY IF: 1. You cough up thick yellow, green, carey, or bloody sputum. 2. You have difficulty breathing, pain in your chest, or your skin or nails look carey or blue. 3. You have shaking chills or a temperature over 102 F (39 C). documented in this encounter [facility] 06-08-2023 Note HNO ID: [id number] Author: RONNIE VIDAL APRN.[employer] Service: ? Author Type: Nurse Practitioner Type: Progress Notes Filed: 06/08/2023 10:33 Note Text: This note was created using [employer]. Subjective Esther Hill is a 87 year old female. HPI Pt was up all night coughing. Review of Systems Constitutional: Negative for fever. HENT: Negative for rhinorrhea and sore throat. Respiratory: Positive for cough. Musculoskeletal: Positive for myalgias. Objective BP 118/78 Pulse 63 Temp 36.2 ?C (97.1 ?F) (Tympanic) Resp 18 Wt 46.4 kg (102 lb 4.7 oz) SpO2 98% BMI 18.71 kg/m? Physical Exam Vitals and nursing note reviewed. Constitutional: General: She is not in acute distress. Appearance: Normal appearance. She is not ill-appearing. HENT: Head: Normocephalic. Mouth/Throat: Mouth: Mucous membranes are moist. Eyes: Conjunctiva/sclera: Conjunctivae normal. Cardiovascular: Rate and Rhythm: Normal rate and regular rhythm. Pulmonary: Effort: Pulmonary effort is normal. Breath sounds: Normal breath sounds. Musculoskeletal: General: Normal range of motion. Cervical back: Normal range of motion. Skin: General: Skin is warm and dry. Neurological: General: No focal deficit present. Mental Status: She is alert. Psychiatric: Mood and Affect: Mood normal. Behavior: Behavior normal. Assessment and Plan ASSESSMENT/PLAN: 1. Acute cough - ICD9: 786.2, ICD10: R05.1 Patient has benign physical exam with unremarkable vital signs. I discussed with patient and family most likely viral presentation. I discussed possible chest x-ray and after discussion patient prefers not to have this done at this time. Patient was given prescription for Tessalon Perles and instructions to get plenty of rest and fluids and follow-up with PCP as needed. Patient comfortable with plan. Ronnie Vidal APRN.[employer] [facility] 06-08-2023 History of Present illness Narrative This note was created using [employer]. Subjective Esther Hill is a 87 year old female. HPI Pt was up all night coughing. Review of Systems Constitutional: Negative for fever. HENT: Negative for rhinorrhea and sore throat. Respiratory: Positive for cough. Musculoskeletal: Positive for myalgias. Objective BP 118/78 Pulse 63 Temp 36.2 C (97.1 F) (Tympanic) Resp 18 Wt 46.4 kg (102 lb 4.7 oz) SpO2 98% BMI 18.71 kg/m Physical Exam Vitals and nursing note reviewed. Constitutional: General: She is not in acute distress. Appearance: Normal appearance. She is not ill-appearing. HENT: Head: Normocephalic. Mouth/Throat: Mouth: Mucous membranes are moist. Eyes: Conjunctiva/sclera: Conjunctivae normal. Cardiovascular: Rate and Rhythm: Normal rate and regular rhythm. Pulmonary: Effort: Pulmonary effort is normal. Breath sounds: Normal breath sounds. Musculoskeletal: General: Normal range of motion. Cervical back: Normal range of motion. Skin: General: Skin is warm and dry. Neurological: General: No focal deficit present. Mental Status: She is alert. Psychiatric: Mood and Affect: Mood normal. Behavior: Behavior normal. Assessment and Plan ASSESSMENT/PLAN: 1. Acute cough - ICD9: 786.2, ICD10: R05.1 Patient has benign physical exam with unremarkable vital signs. I discussed with patient and family most likely viral presentation. I discussed possible chest x-ray and after discussion patient prefers not to have this done at this time. Patient was given prescription for Tessalon Perles and instructions to get plenty of rest and fluids and follow-up with PCP as needed. Patient comfortable with plan. Ronnie Vidal APRN.CNP documented in this encounter [facility] 06-03-2023 History of Present illness Narrative Radiology Service Progress Note PATIENT NAME: Esther Hill DATE OF SERVICE: June 03, 2023 TIME: 1:25 PM PATIENT IDENTITY VERIFICATION COMPLETED USING TWO (2) IDENTIFIERS: Name and Date of confirmed by patient verbally. FALL SCREENING: Has the patient had 2 falls in the last year or 1 fall with injury or currently using an Ambulatory Assistive Device (Walker, Cane, Wheelchair, Crutches, etc.)? No PATIENT GENDER DATA: Female. status: : No status: NO. PATIENT RELEVANT IMPLANT DATA REVIEWED: Not Applicable PATIENT PRESENTS WITH AN IMPLANTABLE OR ATTACHED ARTISTS' BOOKING REPRESENTATIVE: No RADIOLOGY DEPARTMENT: General X-ray: Exam(s) Completed: Spine X-Ray(s): Thoracic Upper Extremity X-Ray(s): Humerus, right and Forearm, right PERIPHERAL IV DATA: Not applicable SIGNED BY: RT Freddy(R) June 03, 2023 1:25 PM documented in this encounter [facility] 06-03-2023 Note HNO ID: [id number] Author: ROSENDO SHAY RT(Philip) Service: Radiology Author Type: Technologist Type: Progress Notes Filed: 06/03/2023 13:37 Note Text: Radiology Service Progress Note PATIENT NAME: Esther Hill DATE OF SERVICE: June 03, 2023 TIME: 1:25 PM PATIENT IDENTITY VERIFICATION COMPLETED USING TWO (2) IDENTIFIERS: Name and Date of confirmed by patient verbally. FALL SCREENING: Has the patient had 2 falls in the last year or 1 fall with injury or currently using an Ambulatory Assistive Device (Walker, Cane, Wheelchair, Crutches, etc.)? No PATIENT GENDER DATA: Female. status: : No status: NO. PATIENT RELEVANT IMPLANT DATA REVIEWED: Not Applicable PATIENT PRESENTS WITH AN IMPLANTABLE OR ATTACHED ARTISTS' BOOKING REPRESENTATIVE: No RADIOLOGY DEPARTMENT: General X-ray: Exam(s) Completed: Spine X-Ray(s): Thoracic Upper Extremity X-Ray(s): Humerus, right and Forearm, right PERIPHERAL IV DATA: Not applicable SIGNED BY: RT Freddy(R) June 03, 2023 1:25 PM [facility] 06-03-2023 Note HNO ID: [id number] Author: DINORA KLEIN APRN.[employer] Service: ? Author Type: Nurse Practitioner Type: Progress Notes Filed: 06/03/2023 14:54 Note Text: This note was created using NoteWriter. Subjective Esther Hill is a 87 year old female. 87 year old female with PMH PVD, DJD, osteoporosis currently taking lisinopril, aspirin, and plavix presents today with acute onset right arm pain for 2 days. Patient was placing an item in a trunk when the lid closed unexpectedly and hit her arm. Did not fall and denies LOC. Right hand dominant. Pertinent positives include bruising, swelling, tenderness, and pain with movement. Pertinent negatives include numbness, tingling, weakness, neck pain, headache, dizziness, chest pain, and shortness of breath. The history is provided by the patient. Arm Pain The pain is present in the right hand, right elbow and right arm. This is a new problem. The current episode started in the past 7 days. There has been a history of trauma. The problem occurs constantly. The problem has been gradually worsening. The quality of the pain is described as sharp. The pain is at a severity of 9/10. The pain is severe. Associated symptoms include joint swelling. Pertinent negatives include no inability to bear weight, joint locking, limited range of motion, numbness or tingling. The symptoms are aggravated by activity. She has tried rest for the symptoms. The treatment provided no relief. Her past medical history is significant for osteoarthritis. PAST MEDICAL HISTORY Diagnosis Date ACUTE GASTRITIS [...] SURGICAL HISTORY OF bile duct surg @ [place] PAST SURGICAL HISTORY OF 03/2015 had vein [...] Tape (Rosins), Estradiol, Fleet Phospho-Soda Accu-Prep [Sodium Xtmnjkoqiy-Diaqdo-Lpm], Hydroxyzine, Novocain [Procaine Hcl], Nsaids (Non-Steroidal Anti-Inflammatory [...] Take by mouth. Bacillus coagulans (PROBIOTIC, B. C (more content not included)... [facility] 06-03-2023 History of Present illness Narrative This note was created using NoteWriter. Subjective Esther Hill is a 87 year old female. 87 year old female with PMH PVD, DJD, osteoporosis currently taking lisinopril, aspirin, and plavix presents today with acute onset right arm pain for 2 days. Patient was placing an item in a trunk when the lid closed unexpectedly and hit her arm. Did not fall and denies LOC. Right hand dominant. Pertinent positives include bruising, swelling, tenderness, and pain with movement. Pertinent negatives include numbness, tingling, weakness, neck pain, headache, dizziness, chest pain, and shortness of breath. The history is provided by the patient. Arm Pain The pain is present in the right hand, right elbow and right arm. This is a new problem. The current episode started in the past 7 days. There has been a history of trauma. The problem occurs constantly. The problem has been gradually worsening. The quality of the pain is described as sharp. The pain is at a severity of 9/10. The pain is severe. Associated symptoms include joint swelling. Pertinent negatives include no inability to bear weight, joint locking, limited range of motion, numbness or tingling. The symptoms are aggravated by activity. She has tried rest for the symptoms. The treatment provided no relief. Her past medical history is significant for osteoarthritis. PAST MEDICAL HISTORY Diagnosis Date ACUTE GASTRITIS [...] SURGICAL HISTORY OF bile duct surg @ [place] PAST SURGICAL HISTORY OF 03/2015 had vein [...] Tape (Rosins), Estradiol, Fleet Phospho-Soda Accu-Prep [Sodium Rsgaehcpnv-Jrctms-Jbs], Hydroxyzine, Novocain [Procaine Hcl], Nsaids (Non-Steroidal Anti-Inflammatory [...] B. COAGULANS, ORAL) Take by mouth. calcium carbonate 600 mg-cholecalciferol 400 units (CALCIUM 600 + D) 600 mg(1,500mg) -400 unit tab Take 1 tablet by mouth twice daily. clopidogrel (PLAVIX) 75 mg tablet vit calc,iron,folic ( #2 ORAL) Take by mouth. oxyCODONE-acetaminophen (PERCOCET) 5-325 mg tablet Take 1 tablet by mouth every 4 hours as needed. fluticasone (FLONASE) 50 mcg/actuation nasal spray Use 1 [place] in each nostril once daily. Cholecalciferol, Vitamin [...] application in both eyes daily at bedtime. ONE DAILY MULTIVITAMIN ORAL Take by mouth [...] No Review of Systems Constitutional: Negative for activity change. HENT: Negative for congestion. Respiratory: Positive for cough. Negative for chest tightness and shortness of breath. Cardiovascular: Negative for chest pain. Gastrointestinal: Positive for diarrhea. Negative for abdominal pain, constipation, nausea and vomiting. Musculoskeletal: Positive for back pain and joint swelling. Negative for neck pain. Skin: Positive for wound. Negative for rash. Neurological: Negative for dizziness, tingling, syncope, weakness, light-headedness and numbness. Objective BP 125/70 Pulse 70 Temp 36.4 C (97.5 F) Resp 18 Wt 46.2 kg (101 lb 13.6 oz) SpO2 98% BMI 18.63 kg/m Physical Exam Vitals reviewed. Constitutional: General: She is awake. She is not in acute distress. Appearance: Normal appearance. She is normal weight. She is not ill-appearing, toxic-appearing or diaphoretic. HENT: Head: Normocephalic and atraumatic. Nose: Nose normal. Eyes: General: Gaze aligned appropriately. Neck: Vascular: No carotid bruit. Cardiovascular: Rate and Rhythm: Normal rate and regular rhythm. Pulses: Normal pulses. Heart sounds: Normal heart sounds, S1 normal and S2 normal. Heart sounds not distant. No murmur heard. No friction rub. No gallop. No S3 or S4 sounds. Pulmonary: Effort: Pulmonary effort is normal. No tachypnea, bradypnea, accessory muscle usage, prolonged expiration, respiratory distress or retractions. Breath sounds: Normal breath sounds. No stridor or decreased air movement. No decreased breath sounds, wheezing, rhonchi or rales. Chest: Chest wall: No tenderness. Abdominal: General: Abdomen is flat. Bowel sounds are normal. There is no distension. Palpations: Abdomen is soft. There is no mass. Tenderness: There is no abdominal tenderness. There is no guarding or rebound. Hernia: No hernia is present. Musculoskeletal: General: Swelling, tenderness and signs of injury present. No deformity. Normal range of motion. Right shoulder: Normal. No swelling, deformity, effusion, laceration, tenderness, bony tenderness or crepitus. Normal range of motion. Normal strength. Normal pulse. Left shoulder: Normal. Right upper arm: Tenderness and bony tenderness present. No swelling, edema, deformity or lacerations. Left upper arm: Normal. Right elbow: Swelling present. No deformity, effusion or lacerations. Normal range of motion. Tenderness present in radial head and lateral epicondyle. No medial epicondyle or olecranon process tenderness. Left elbow: Normal. Right forearm: Swelling, edema and tenderness present. No deformity, lacerations or bony tenderness. Left forearm: Normal. Right wrist: Normal. No swelling, deformity, effusion, lacerations, tenderness, bony tenderness, snuff box tenderness or crepitus. Normal range of motion. Normal pulse. Left wrist: Normal. Right hand: Swelling, laceration, tenderness and bony tenderness present. No deformity. Normal range of motion. Normal strength. Normal sensation. Normal capillary refill. Normal pulse. Left hand: Normal. Cervical back: Normal, normal range of motion and neck supple. No swelling, edema, deformity, erythema, signs of trauma, lacerations, rigidity, spasms, torticollis, tenderness, bony tenderness or crepitus. No pain with movement, spinous process tenderness or muscular tenderness. Normal range of motion. Thoracic back: Tenderness and bony tenderness present. No swelling, edema, deformity, signs of trauma, lacerations or spasms. Normal range of motion. No scoliosis. Lumbar back: Normal. Comments: Midline Bony tenderness of thoracic vertebrae. No cervical midline TTP. NO TTP midline lumbar No ecchymosis Ambulatory in exam room 1 cm laceration on dorsal side of hand. No bleeding, drainage, erythema, or red streaking. Ecchymosis and edema on right hand, right forearm, and right elbow. ROM and strength of right shoulder,right elbow, right wrist, and right hand intact. Tenderness to palpation on third and fourth right metacarpals, right lateral epicondyle, right radial head, and humerus. Sensation intact. No obvious deformity RP +2 B/L Lymphadenopathy: Cervical: No cervical adenopathy. Skin: General: Skin is warm and dry. Capillary Refill: Capillary refill takes less than 2 seconds. Coloration: Skin is not jaundiced or pale. Findings: Bruising present. No erythema, lesion or rash. Neurological: General: No focal deficit present. Mental Status: She is alert and oriented to person, place, and time. Mental status is at baseline. Sensory: No sensory deficit. Motor: No weakness. Coordination: Coordination normal. Psychiatric: Mood and Affect: Mood normal. Behavior: Behavior normal. Behavior is cooperative. Thought Content: Thought content normal. Judgment: Judgment normal. Assessment and Plan ASSESSMENT/PLAN: 1. Pain of right upper extremity - ICD9: 729.5, ICD10: M79.601 (primary diagnosis) - Acute onset right arm pain for 2 days. Patient was placing an item in a trunk when the lid closed unexpectedly and hit her arm. - Denies falling, hitting head, and LOC - LCTA. Ecchymosis and edema on right hand, right forearm, and right elbow. Tenderness to palpation on third and fourth right metacarpals, right lateral epicondyle, right radial head, and humerus. Sensation intact. ROM and strength of right shoulder,right elbow, right wrist, and right hand intact. - XR HUMERUS 2V AP/LAT RIGHT- No acute fracture or dislocation. Acromioclavicular degenerative disease. - XR FOREARM GENERAL 2V AP/LAT RIGHT- No acute fracture or dislocation. Mild radiocarpal joint space narrowing. - Rest and OTC analgesia PRN - Arm placed in sling - follow-up with PCP in 1 week 2. Acute midline thoracic back pain - ICD9: 724.1, ICD10: M54.6 - Patient denies back pain at rest. Denies falling and back injury - On exam, bony tenderness of thoracic vertebrae on exam - Xrays- see orders - XR THORACIC LIMITED 2V AP/LAT- Compression fracture of the vertebral body of L1 has developed since the prior study Patient denies recent falls or injury (talks about a fall she thought was 3 months ago) 3. Compression fracture of L1 vertebra, initial encounter ([facility]) - ICD9: 805.4, ICD10: S32.010A - XR THORACIC LIMITED 2V AP/LAT- Compression fracture of the vertebral body of L1 has developed since the prior study - Rest and OTC analgesia PRN - Follow-up with PCP in one week Juana Zhong TEACHING PROVIDER (Physician/PA/GANG HEMSTITCHING MACHINE OPERATOR) NOTE OF PERSONAL INVOLVEMENT IN CARE: I have personally seen and examined the patient and performed the medical decision-making components. I have reviewed the Advanced Practice Registered Nurse (GANG HEMSTITCHING MACHINE OPERATOR) Student's documentation and verified the findings in the note as written. Any additions or changes are noted in bold/italics. Signature: Dinora Klein Date: 06/03/2023 Time: 2:52 PM documented in this encounter [facility] 12-25-2022 Instructions Tracey Valle APRN.CNP - 12/25/2022 2:47 PM EDT ASSESSMENT/PLAN: 1. [...] which would likely bleed also. Tracey Valle APRN.[employer] documented in this encounter [facility] 12-25-2022 Note HNO ID: [id number] Author: Tracey Valle APRN.BOX MA[employer] Service: ? Author Type: Nurse Practitioner Type: Progress Notes Filed: 12/25/2022 2:48 PM Note Text: Subjective HPI Esther Hill is a 87 year old female who [...] SURGICAL HISTORY OF bile duct surg @ [place] PAST SURGICAL HISTORY OF 03/2015 had vein [...] Tape (Rosins), Estradiol, Fleet Phospho-Soda Accu-Prep [Sodium Vsihhxqchl-Qmfgte-Fle], Hydroxyzine, Novocain [Procaine Hcl], Nsaids (Non-Steroidal Anti-Inflammatory [...] (FLONASE) 50 mcg/actuation nasal spray Use 1 [place] in each nostril once daily. ONE DAILY MULTIVITAMIN ORAL Take by mouth once daily. vitamins oxyCODONE-acetaminophen (PERCOCET) 5-325 mg tablet Take 1 tablet by mouth every 4 hours as needed. Potassium 99 mg tab Take 1 tablet by mouth as needed. vit calc,iron,folic ( #2 ORAL) Joseluis (more content not included)... [facility] 12-25-2022 History of Present illness Narrative Subjective HPI Esther Hill is a 87 year old female who [...] SURGICAL HISTORY OF bile duct surg @ [place] PAST SURGICAL HISTORY OF 03/2015 had vein [...] Tape (Rosins), Estradiol, Fleet Phospho-Soda Accu-Prep [Sodium Cgtujcjees-Yhzmmn-Lyr], Hydroxyzine, Novocain [Procaine Hcl], Nsaids (Non-Steroidal Anti-Inflammatory [...] (FLONASE) 50 mcg/actuation nasal spray Use 1 [place] in each nostril once daily. ONE DAILY [...] Tracey Valle APRN.DEBORA documented in this encounter [facility] 12-24-2022 Instructions Tracey Valle APRN.CNP - 12/24/2022 7:03 PM EDT ASSESSMENT/PLAN: 1. [...] medical evaluation if any occur. Tracey Valle APRN.CNP documented in this encounter [facility] 12-24-2022 Note HNO ID: [id number] Author: Tracey Valle APRN.CNP Service: ? Author Type: Nurse Practitioner Type: Progress Notes Filed: 12/24/2022 7:03 PM Note Text: Subjective Laceration Esther Hill is a 87 year old female who [...] SURGICAL HISTORY OF bile duct surg @ [place] PAST SURGICAL HISTORY OF 03/2015 had vein [...] Tape (Rosins), Estradiol, Fleet Phospho-Soda Accu-Prep [Sodium Ptdfgqtzop-Vkgcuz-Aod], Hydroxyzine, Novocain [Procaine Hcl], Nsaids (Non-Steroidal Anti-Inflammatory [...] (FLONASE) 50 mcg/actuation nasal spray Use 1 [place] in each nostril once daily. ONE DAILY MULTIVITAMIN ORAL Take by mouth once daily. vitamins oxyCODONE-acetaminophen (PERCOCET) 5-325 mg tablet Take 1 tablet by mouth every 4 hours as needed (more content not included)... [facility] 12-24-2022 History of Present illness Narrative Images from the original note were not included. Subjective Laceration Esther Hill is a 87 year old female who [...] 10/31/2014 Blood per rectum 10/14/2014 Bowel disease 2008 diverticulitis/03/18 of colon removed Cervical disc disorder [...] SURGICAL HISTORY OF bile duct surg @ [place] PAST SURGICAL HISTORY OF 03/2015 had vein [...] Tape (Rosins), Estradiol, Fleet Phospho-Soda Accu-Prep [Sodium Lfahdrgsrr-Cjuokr-Sum], Hydroxyzine, Novocain [Procaine Hcl], Nsaids (Non-Steroidal Anti-Inflammatory [...] (FLONASE) 50 mcg/actuation nasal spray Use 1 [place] in each nostril once daily. ONE DAILY [...] medical evaluation if any occur. Tracey Valle APRN.BOX MAKER WOOD documented in this encounter [facility] 11-23-2022 History of Present illness Narrative Patient triaged at [facility]. Here today with fall 1 hour ago, hit head, left shoulder/elbow/hand hurts. Right hand bleeding. I will refer to ER. Family to drive pov to [facility] ER. documented in this encounter [facility] 08-31-2022 Instructions Mandy Olsen - 08/31/2022 9:42 AM EDT Recommend lace up tennis shoe, ie ministerio or maral Recommend placing foot in cold water bath tub x 10 minutes twice daily Rest your foot for the next 1-2 weeks and your pain should improve. documented in this encounter [facility] 08-31-2022 History of Present illness Narrative Consultation requested by Dr. Hardy [...] No results found for: HBA1C PCP: Tierra Klein MD PAST MEDICAL HISTORY Diagnosis Date ACUTE [...] (FLONASE) 50 mcg/actuation nasal spray Use 1 [place] in each nostril once daily. Cholecalciferol, Vitamin [...] DIAGNOSTIC 06/10/2006 EGD HEMORRHOIDECTOMY INT & XTRNL / COLUMN/ELIAZAR 2006 LAPAROSCOPY COLECTOMY PARTIAL W/ANASTOMOSIS 08/20/08 for diverticulitis, appendectomy at same time LIGJ DIVJ &/EXCJ VARICOSE VEIN CLUSTER 1 LEG Varicose Vein Surgery right leg PAST SURGICAL HISTORY OF 1997 and 2006 hiatal hernia surgery x 2 PAST SURGICAL HISTORY OF 200? left breast cyst bengin PAST SURGICAL HISTORY OF bile duct surg @ [place] PAST SURGICAL HISTORY OF 03/2015 had vein [...] time to rest 5. F/u prn Mandy Olsen DPM Podiatry [address] [facility] [address] Dept: [phone] Dept Patient presents here today for right ankle pain and injury. Patient states that she isn't in pain at the moment but was hurting this morning. States she went to the urgent care and they told her to stay off it and taped her toes. He recommended she come here. Patient states she hurt it a few weeks ago. documented in this encounter [facility] 08-26-2022 History of Present illness Narrative Subjective HPI Nontoxic-appearing female presents [...] SURGICAL HISTORY OF bile duct surg @ [place] PAST SURGICAL HISTORY OF 03/2015 had vein [...] Tape (Rosins), Estradiol, Fleet Phospho-Soda Accu-Prep [Sodium Nukdqwazjj-Zxnxvk-Lhp], Hydroxyzine, Novocain [Procaine Hcl], Nsaids (Non-Steroidal Anti-Inflammatory [...] (FLONASE) 50 mcg/actuation nasal spray Use 1 [place] in each nostril once daily. cyanocobalamin, vitamin [...] of care. This note was generated using Prompt.ly software. It may contain errors in wording, punctuation, or spelling. Tani Hardy APRN.DEBORA documented in this encounter [facility] 08-18-2022 Miscellaneous Notes Pt daughter [...] on x-ray. Continue supportive therapies as discussed. Tani Hardy APRN.CNP documented in this encounter [facility] 08-17-2022 History of Present illness Narrative Radiology Service Progress Note PATIENT NAME: Esther Hill DATE OF SERVICE: August 17, 2022 TIME: [...] RT Freddy(R) August 17, 2022 5:59 PM documented in this encounter [facility] 08-17-2022 History of Present illness Narrative Subjective HPI Nontoxic-appearing female presents [...] SURGICAL HISTORY OF bile duct surg @ [place] PAST SURGICAL HISTORY OF 03/2015 had vein [...] Tape (Rosins), Estradiol, Fleet Phospho-Soda Accu-Prep [Sodium Mpvhcpanxg-Ewvwep-Vga], Hydroxyzine, Novocain [Procaine Hcl], Nsaids (Non-Steroidal Anti-Inflammatory [...] (FLONASE) 50 mcg/actuation nasal spray Use 1 [place] in each nostril once daily. (Patient not [...] of care. This note was generated using Prompt.ly software. It may contain errors in wording, punctuation, or spelling. Tani Hardy APRN.DEBORA documented in this encounter [facility] 07-16-2020 History of Present illness Narrative CVI HISTORY 1. Have you ever had vein stripping surgery? (If yes, when and which leg?) Yes Dr. Howell at [facility] 2. Have you ever had [...] you diagnosed with saphenous vein reflux? No [facility] CONSULT NOTE 07/16/2020 Chief Complaint Patient presents with Referral Ernie referral, VV, pain Assessment and Plan: 1. Varicose veins of lower extremity with inflammation, bilateral 1. Suspect at least mild underlying venous hypertension. 2. Obtain VIS. 3. Recommend compression stockings 20-30mmHg. 4. Conservative management. 5. Exercise and leg elevation. 6. Consider endovenous therapy if indicated. Orders Placed This Encounter Venous Insufficiency Study-Bil Lower Ext History of Present Illness: Patient is a 84 y.o. female who presents today for initial evaluation of varicose veins. Presents today with complaints of varicose veins. Reports that she had stripping done many years ago at [facility]. Reports that he didn't finish the [...] provider on file. documented in this encounter [facility] 07-16-2020 Miscellaneous Notes Encounter addended by: Kathie Johansen RN on: 07/16/2020 3:11 PM Actions taken: Edited Discharge Instructions documented in this encounter [facility] 07-16-2020 Hospital Discharge instructions Kathie Johansen RN - 07/16/2020 Do not wear compression the day of your venous scan. We will call you with results. documented in this encounter [facility] 11-25-2010 History of Past i llness Narrative Problem Noted Date Resolved Date NO SHOW 11/25/2010 09/07/2013 Abdominal pain, right lower quadrant 09/11/2008 08/24/2011 DIVERTICULITIS COLON - NO HEMORRHAGE 07/29/2008 09/21/2013 Diverticulosis of colon (without mention of hemo rrhage) 09/21/2013 Overview: Acute Episode Diverticulitis - 07/15/08 documented as of this encounter (statuses as of 08/18/2022) [facility]09-14-2011 History of Past illness Narrative* Problem Noted Date Resolved Date NO SHOW 11/25/2010 09/07/2013 Abdominal pain, right lower quadrant 09/11/2008 08/24/2011 DIVERTICULITIS COLON - NO HEMORRHAGE 07/29/2008 09/21/2013 Diverticulosis of colon (without mention of hemo rrhage) 09/21/2013 Overview: Acute Episode Diverticulitis - 07/15/08 documented as of this encounter (statuses as of 08/19/2022) [facility] History of Past illness Narrative* Problem Noted Date Resolved Date NO SHOW 11/25/2010 09/07/2013 Abdominal pain, right lower quadrant 09/11/2008 08/24/2011 DIVERTICULITIS COLON - NO HEMORRHAGE 07/29/2008 09/21/2013 Diverticulosis of colon (without mention of hemo rrhage) 09/21/2013 Overview: Acute Episode Diverticulitis - 07/15/08 documented as of this encounter (statuses as of 08/27/2022) [facility] History of Past illness Narrative* Problem Noted Date Resolved Date NO SHOW 11/25/2010 09/07/2013 Abdominal pain, right lower quadrant 09/11/2008 08/24/2011 DIVERTICULITIS COLON - NO HEMORRHAGE 07/29/2008 09/21/2013 Diverticulosis of colon (without mention of hemo rrhage) 09/21/2013 Overview: Acute Episode Diverticulitis - 07/15/08 documented as of this encounter (statuses as of 08/31/2022) [facility] History of Past illness Narrative* Problem Noted Date Diagnosed Date Resolved Date NO SHOW 11/25/2010 09/07/2013 Abdominal pain, right lower quadrant 09/11/2008 08/24/2011 DIVERTICULITIS COLON - NO HEMORRHAGE 07/29/2008 09/21/2013 Diverticulosis of colon (wit hout mention of hemorrhage) 09/21/2013 Overview: Acute Episode Diverticulitis - 07/15/08 documented as of this encounter (statuses as of 11/24/2022) [facility] History of Past illness Narrative* Problem Noted Date Diagnosed Date Resolved Date NO SHOW 11/25/2010 09/07/2013 Abdominal pain, right lower quadrant 09/11/2008 08/24/2011 DIVERTICULITIS COLON - NO HEMORRHAGE 07/29/2008 09/21/2013 Diverticulosis of colon (wit hout mention of hemorrhage) 09/21/2013 Overview: Acute Episode Diverticulitis - 07/15/08 documented as of this encounter (statuses as of 12/25/2022) [facility] History of Past illness Narrative* Problem Noted Date Diagnosed Date Resolved Date NO SHOW 11/25/2010 09/07/2013 Abdominal pain, right lower quadrant 09/11/2008 08/24/2011 DIVERTICULITIS COLON - NO HEMORRHAGE 07/29/2008 09/21/2013 Diverticulosis of colon (wit hout mention of hemorrhage) 09/21/2013 Overview: Acute Episode Diverticulitis - 07/15/08 documented as of this encounter (statuses as of 12/25/2022) [facility] History of Past illness Narrative* Problem Noted Date Diagnosed Date Resolved Date NO SHOW 11/25/2010 09/07/2013 Abdominal pain, right lower quadrant 09/11/2008 08/24/2011 DIVERTICULITIS COLON - NO HEMORRHAGE 07/29/2008 09/21/2013 Diverticulosis of colon (wit hout mention of hemorrhage) 09/21/2013 Overview: Acute Episode Diverticulitis - 07/15/08 documented as of this encounter (statuses as of 06/03/2023) [facility] History of Past illness Narrative* Problem Noted Date Diagnosed Date Resolved Date NO SHOW 11/25/2010 09/07/2013 Abdominal pain, right lower quadrant 09/11/2008 08/24/2011 DIVERTICULITIS COLON - NO HEMORRHAGE 07/29/2008 09/21/2013 Diverticulosis of colon (wit hout mention of hemorrhage) 09/21/2013 Overview: Acute Episode Diverticulitis - 07/15/08 documented as of this encounter (statuses as of 06/09/2023) [facility] note* Diagnosis Varicose veins of lower extremity with inflammation, bilateral- Primary documented in this encounter [facility] note* Diagnosis Varicose veins of lower extremity with inflammation, bilateral documented in this encounter [facility] note* Diagnosis Foot injury, right, initial encounter- Primary documented in this encounter [facility] note* Diagnosis Acute right ankle pain- Primary Foot injury, right, initial encounter documented in this encounter [facility] note* Diagnosis Contusion of foot, unspecified laterality, initial encounter- Primary Acute right ankle pain Foot injury, right, initial encounter Peripheral vascular disease (HCC) Peripheral vascular disease, unspecified Nutritional marasmus (HCC) Nutritional marasmus documented in this encounter [facility] note* Diagnosis Injury of head, initial encounter- Primary documented in this encounter [facility] note* Diagnosis Laceration of muscle of left hand- Primary [facility] Diagnosis Laceration of left hand without foreign body, subsequent encounter- Primary documented in this encounter [facility] note* Diagnosis Pain of right upper extremity- Primary Acute midline thoracic back pain Compression fracture of L1 vertebra, initial encounter ([facility]) documented in this encounter [facility] note* Diagnosis Acute cough- Primary documented in this encounter [facility] note* Diagnosis Left leg pain- Primary Pain in limb documented in this encounter [facility] note* Diagnosis Pain of right upper extremity Acute midline thoracic back pain documented in this encounter [facility] note* Diagnosis Pain- Primary Generalized pain Pain Generalized pain documented in this encounter [facility] note* Diagnosis Pain Generalized pain documented in this encounter [facility] note* Diagnosis Acute right ankle pain Foot injury, right, initial encounter documented in this encounter [facility] note* Diagnosis Foot injury, right, initial encounter documented in this encounter [facility] for referral (narrative)* Procedure Authorization (Routine) Status Reason Specialty Diagnoses / Procedures Referred By Contact Referred To Contact Incomplete Heart and Vascul ar Diagnostics Diagnoses Varicose veins of lower extremity with inflammation, bilateral Procedures Venous Insufficiency Study-Bilat Lower Ext Jessica Cano APRN [employer] [address] [place] [address] Electronically signed by Jessica Cano APRN, CNP at [facility] for referral (narrative)* Procedure Authorization (Routine) Status Reason Specialty Diagnoses / Procedures Referred By Contact Referred To Contact Closed Heart and Vascul ar Diagnostics Diagnoses Varicose veins of lower extremity with inflammation, bilateral Procedures Venous Insufficiency Study-Bilat Lower Ext Jessica Cano APRN CNP [address] [place] [address] Electronically signed by Jessica Cano APRN, CNP at [facility] for referral (narrative)* Diagnostic Procedure Only (Urgent) - Closed Specialty Diagnoses / Procedures Referred By Contac t Referred To Contact XR IMAGING Diagnoses Foot injury, right, initial encounter Procedures XR FOOT GENERAL 3V AP/LAT/OBL RIGHT RADEX FOOT COMPLETE MINIMUM 3 VIEWS Tani Hardy APRN.[employer] [address] [address] [place] [address] Xr Imaging Referral ID Status Reason Start Date Expiration Date V isits Requested Visits Authorized [id number] Closed Auto-Generate d Referral 08/17/2022 09/16/2023 1 1 [facility] for referral (narrative)* Diagnostic Procedure Only (Urgent) - Closed Specialty Diagnoses / Procedures Referred By Contac t Referred To Contact XR IMAGING Diagnoses Acute midline thoracic back pain Procedures XR THORACIC LIMITED 2V AP/LAT RADEX SPINE THORACIC 2 VIEWS Dinora Klein APRN.[employer] [address] [place] [address] [place] [address] Referral ID Status Reason Start Date Expiration Date V isits Requested Visits Authorized [id number] Closed Auto-Generate d Referral 06/03/2023 07/02/2024 1 1 * Diagnostic Procedure Only (Urgent) - Closed Specialty Diagnoses / Procedures Referred By Contac t Referred To Contact XR IMAGING Diagnoses Pain of right upper extremity Procedures XR FOREARM GENERAL 2V AP/LAT RIGHT RADEX FOREARM 2 VIEWS Dinora Klein APRN.[employer] [address] [place] [address] [place] [address] Referral ID Status Reason Start Date Expiration Date V isits Requested Visits Authorized [id number] Closed Auto-Generate d Referral 06/03/2023 07/02/2024 1 1 * Diagnostic Procedure Only (Urgent) - Closed Specialty Diagnoses / Procedures Referred By Contac t Referred To Contact XR IMAGING Diagnoses Pain of right upper extremity Procedures XR HUMERUS 2V AP/LAT RIGHT RADEX HUMERUS MINIMUM 2 VIEWS Dinora Klein APRN.[employer] [address] [place] [address] [place] [address] Referral ID Status Reason Start Date Expiration Date V isits Requested Visits Authorized [id number] Closed Auto-Generate d Referral 06/03/2023 07/02/2024 1 1 [facility] for referral (narrative)* Diagnostic Procedure Only (Urgent) - Closed Specialty Diagnoses / Procedures Referred By Contac t Referred To Contact XR IMAGING Diagnoses Acute midline thoracic back pain Procedures XR THORACIC LIMITED 2V AP/LAT RADEX SPINE THORACIC 2 VIEWS Dinora Klein APRN.[employer] [address] [place] [address] [place] [address] Referral ID Status Reason Start Date Expiration Date V isits Requested Visits Authorized [id number] Closed Auto-Generate d Referral 06/03/2023 07/02/2024 1 1 * Diagnostic Procedure Only (Urgent) - Closed Specialty Diagnoses / Procedures Referred By Contac t Referred To Contact XR IMAGING Diagnoses Pain of right upper extremity Procedures XR FOREARM GENERAL 2V AP/LAT RIGHT RADEX FOREARM 2 VIEWS Dinora Klein APRN.[employer] [address] [place] [address] [place] [address] Referral ID Status Reason Start Date Expiration Date V isits Requested Visits Authorized [id number] Closed Auto-Generate d Referral 06/03/2023 07/02/2024 1 1 * Diagnostic Procedure Only (Urgent) - Closed Specialty Diagnoses / Procedures Referred By Contac t Referred To Contact XR IMAGING Diagnoses Pain of right upper extremity Procedures XR HUMERUS 2V AP/LAT RIGHT RADEX HUMERUS MINIMUM 2 VIEWS Dinora Klein APRN.[employer] [address] [place] [address] [place] [address] Referral ID Status Reason Start Date Expiration Date V isits Requested Visits Authorized [id number] Closed Auto-Generate d Referral 06/03/2023 07/02/2024 1 1 [facility] for referral (narrative)* Diagnostic Procedure Only (Urgent) - Closed Specialty Diagnoses / Procedures Referred By Contac t Referred To Contact XR IMAGING Diagnoses Pain Procedures XR RIBS/CHEST 3V AP RIB/OBLS/CXR RIGHT RADEX RIBS UNI W/POSTEROANT CH MINIMUM 3 VIEWS Orestes Hooks APRN.[employer] [address] [place] [address] [place] [address] Referral ID Status Reason Start Date Expiration Date V isits Requested Visits Authorized [id number] Closed Auto-Generate d Referral 11/26/2023 12/25/2024 1 1 [facility] for referral (narrative)* Diagnostic Procedure Only (Urgent) - Closed Specialty Diagnoses / Procedures Referred By Contac t Referred To Contact XR IMAGING Diagnoses Pain Procedures XR RIBS/CHEST 3V AP RIB/OBLS/CXR RIGHT RADEX RIBS UNI W/POSTEROANT CH MINIMUM 3 VIEWS Orestes Hooks APRN.[employer] [address] [address] [place] [address] [place] [address] Referral ID Status Reason Start Date Expiration Date V isits Requested Visits Authorized [id number] Closed Auto-Generate d Referral 11/26/2023 12/25/2024 1 1 [facility] for referral (narrative)* Diagnostic Procedure Only (Urgent) - Closed Specialty Diagnoses / Procedures Referred By Contac t Referred To Contact XR IMAGING Diagnoses Acute right ankle pain Foot injury, right, initial encounter Procedures XR FOOT GENERAL 3V AP/LAT/OBL RIGHT RADEX FOOT COMPLETE MINIMUM 3 VIEWS Tani Hardy APRN.[employer] [address] [place] [address] [place] [address] Referral ID Status Reason Start Date Expiration Date V isits Requested Visits Authorized [id number] Closed Auto-Generate d Referral 08/26/2022 09/25/2023 1 1 * Diagnostic Procedure Only (Urgent) - Closed Specialty Diagnoses / Procedures Referred By Contac t Referred To Contact XR IMAGING Diagnoses Acute right ankle pain Procedures XR ANKLE GENERAL 3V AP/LAT/OBL RIGHT RADEX ANKLE COMPLETE MINIMUM 3 VIEWS Tani Hardy APRN.[employer] [address] [place] [address] [place] [address] Referral ID Status Reason Start Date Expiration Date V isits Requested Visits Authorized [id number] Closed Auto-Generate d Referral 08/26/2022 09/25/2023 1 1 [facility] for referral (narrative)* Diagnostic Procedure Only (Urgent) - Closed Specialty Diagnoses / Procedures Referred By Contac t Referred To Contact XR IMAGING Diagnoses Foot injury, right, initial encounter Procedures XR FOOT GENERAL 3V AP/LAT/OBL RIGHT RADEX FOOT COMPLETE MINIMUM 3 VIEWS Tani Hardy, GANG HEMSTITCHING MACHINE OPERATOR.[employer] [address] [place] [address] [place] [address] Referral ID Status Reason Start Date Expiration Date V isits Requested Visits Authorized [id number] Closed Auto-Generate d Referral 08/17/2022 09/16/2023 1 1 [facility] for visit Narrative* Procedure Authorization (Routine) Status Reason Specialty Diagnoses / Procedures Referred By Contact Referred To Contact Closed Heart and Vascul ar Diagnostics Diagnoses Varicose veins of lower extremity with inflammation, bilateral Procedures Venous Insufficiency Study-Bilat Lower Ext Jessica Cano APRN [employer] [address] [address] [facility] for visit Narrative* Diagnostic Procedure Only (Urgent) - Closed Specialty Diagnoses / Procedures Referred By Contac t Referred To Contact XR IMAGING Diagnoses Acute midline thoracic back pain Procedures XR THORACIC LIMITED 2V AP/LAT RADEX SPINE THORACIC 2 VIEWS Dinora Klein, GANG HEMSTITCHING MACHINE OPERATOR.[employer] [address] [address] [place] [address] [place] [address] Referral ID Status Reason Start Date Expiration Date V isits Requested Visits Authorized [id number] Closed Auto-Generate d Referral 06/03/2023 07/02/2024 1 1 [facility] for visit Narrative* Diagnostic Procedure Only (Urgent) - Closed Specialty Diagnoses / Procedures Referred By Contac t Referred To Contact XR IMAGING Diagnoses Pain Procedures XR RIBS/CHEST 3V AP RIB/OBLS/CXR RIGHT RADEX RIBS UNI W/POSTEROANT CH MINIMUM 3 VIEWS Orestes Hooks, GANG HEMSTITCHING MACHINE OPERATOR.[employer] [address] [address] [place] [address] [place] [address] Referral ID Status Reason Start Date Expiration Date V isits Requested Visits Authorized [id number] Closed Auto-Generate d Referral 11/26/2023 12/25/2024 1 1 [facility] for visit Narrative* Diagnostic Procedure Only (Urgent) - Closed Specialty Diagnoses / Procedures Referred By Contac t Referred To Contact XR IMAGING Diagnoses Acute right ankle pain Foot injury, right, initial encounter Procedures XR FOOT GENERAL 3V AP/LAT/OBL RIGHT RADEX FOOT COMPLETE MINIMUM 3 VIEWS Tani Hardy, GANG HEMSTITCHING MACHINE OPERATOR.[employer] [address] [place] [address] [place] [address] Referral ID Status Reason Start Date Expiration Date V isits Requested Visits Authorized [id number] Closed Auto-Generate d Referral 08/26/2022 09/25/2023 1 1 [facility] for visit Narrative* Diagnostic Procedure Only (Urgent) - Closed Specialty Diagnoses / Procedures Referred By Contac t Referred To Contact XR IMAGING Diagnoses Foot injury, right, initial encounter Procedures XR FOOT GENERAL 3V AP/LAT/OBL RIGHT RADEX FOOT COMPLETE MINIMUM 3 VIEWS Tani Hardy, GANG HEMSTITCHING MACHINE OPERATOR.[employer] [address] [place] [address] [place] [address] Referral ID Status Reason Start Date Expiration Date V isits Requested Visits Authorized [id number] Closed Auto-Generate d Referral 08/17/2022 09/16/2023 1 1 [facility] Summary Purpose Family History No Family History Records FoundNo Family History Records FoundNo Family History Records FoundNo Family History Records FoundNo Family History Records FoundNo Family History Records Found Advance Directives Documents on File Type Date Recorded 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 Advance Directives and Living Will Power of Chair Mechanic Reason for Referral Specialty Diagnoses / Procedures Referred By Contac t Referred To Contact Podiatry Diagnoses Acute right ankle pain Foot injury, right, initial encounter Procedures CONSULT TO PODIATRY OFFICE/OUTPATIENT NEW HIGH MDM 60-74 MINUTES Tani Hardy, GANG HEMSTITCHING MACHINE OPERATOR.[employer] [address] [place] [address] Referral ID Status Reason Start Date Expiration Date Visits Requested Visits Authorized [id number] Pending Review PCP Requested Referral 08/26/2022 08/26/2023 1 1 Specialty Diagnoses / Procedures Referred By Contac t Referred To Contact XR IMAGING Diagnoses Acute right ankle pain Foot injury, right, initial encounter Procedures XR FOOT GENERAL 3V AP/LAT/OBL RIGHT RADEX FOOT COMPLETE MINIMUM 3 VIEWS Tani Hardy, EDILIA.[employer] [address] [place] [address] Xr Imaging Referral ID Status Reason Start Date Expiration Date V isits Requested Visits Authorized [id number] Closed Auto-Generate d Referral 08/26/2022 09/25/2023 1 1 Specialty Diagnoses / Procedures Referred By Contac t Referred To Contact XR IMAGING Diagnoses Acute right ankle pain Procedures XR ANKLE GENERAL 3V AP/LAT/OBL RIGHT RADEX ANKLE COMPLETE MINIMUM 3 VIEWS Tani Hardy, GANG HEMSTITCHING MACHINE OPERATOR.[employer] [address] [place] [address] Xr Imaging Referral ID Status Reason Start Date Expiration Date V isits Requested Visits Authorized [id number] Closed Auto-Generate d Referral 08/26/2022 09/25/2023 1 1 Additional Source Comments INFORMATION SOURCE (unrecogn ized section and content) DATE CREATED AUTHOR 09/01/2017 [facility] [employer] [facility] ([place]) DATE CREATED AUTHOR AUTHOR'S ORGANIZ ATION 09/06/2017 [facility] DATE CREATED AUTHOR AUTHOR'S ORGANIZ ATION 09/07/2017 [facility] DATE CREATED AUTHOR AUTHOR'S ORGANIZ ATION 05/10/2020 [facility] DATE CREATED AUTHOR AUTHOR'S ORGANIZ ATION 05/25/2020 [facility] DATE CREATED AUTHOR AUTHOR'S ORGANIZ ATION 11/28/2023 [facility] Reason for Visit (unrecogniz ed section and content) Reason Comments Referral Ernie referral, V V, pain Status Reason Specialty Diagnoses / Procedures Referred By Contact Referred To Contact Closed Heart and Vascul ar Diagnostics Diagnoses Asymptomatic varicose veins of bilateral lower extremities Tierra Klein MD [address] [place] [address] [facility] [address] [facility] [address], [address] [place] [address] Reason Comments Pain (foot) right foot bruised [...] initial encounter Procedures CONSULT TO PODIATRY OFFICE/OUTPATIENT [facility] 60-74 MINUTES Tani Hardy APRN.[employer] [address] [place] [address] Referral ID Status Reason Start Date Expiration Date Visits Requested Visits Authorized [id number] Pending Review PCP Requested Referral 08/26/2022 08/26/2023 1 1 Reason Comments Laceration Cast removal L hand x8 hours, hand bleeding, on blood thinners Reason Comments Arm Pain R arm and hand pain and bruising x2 days Reason Comments Cough Cough and congestion x 1 day Reason Comments Rib Injury bilateral rib pain a nd back pain x 1 month Source Comments (unrecognize d section and content) In the event this informatio n is protected by the Federal Confidentiality of Alcohol and Drug Abuse Patient Records regulations: The Federal rules restrict any use of the information to criminally investigate or prosecute any alcohol or drug abuse patient.[facility] the event this information is protected by the Federal Confidentiality of Alcohol and Drug Abuse Patient Records regulations: The Federal rules restrict any use of the information to criminally investigate or prosecute any alcohol or drug abuse patient.[facility] the event this information is protected by the Federal Confidentiality of Alcohol and Drug Abuse Patient Records regulations: The Federal rules restrict any use of the information to criminally investigate or prosecute any alcohol or drug abuse patient.[facility] the event this information is protected by the Federal Confidentiality of Alcohol and Drug Abuse Patient Records regulations: The Federal rules restrict any use of the information to criminally investigate or prosecute any alcohol or drug abuse patient.[facility] the event this information is protected by the Federal Confidentiality of Alcohol and Drug Abuse Patient Records regulations: The Federal rules restrict any use of the information to criminally investigate or prosecute any alcohol or drug abuse patient.[facility] the event this information is protected by the Federal Confidentiality of Alcohol and Drug Abuse Patient Records regulations: The Federal rules restrict any use of the information to criminally investigate or prosecute any alcohol or drug abuse patient.[facility] the event this information is protected by the Federal Confidentiality of Alcohol and Drug Abuse Patient Records regulations: The Federal rules restrict any use of the information to criminally investigate or prosecute any alcohol or drug abuse patient.[facility] the event this information is protected by the Federal Confidentiality of Alcohol and Drug Abuse Patient Records regulations: The Federal rules restrict any use of the information to criminally investigate or prosecute any alcohol or drug abuse patient.[facility] the event this information is protected by the Federal Confidentiality of Alcohol and Drug Abuse Patient Records regulations: The Federal rules restrict any use of the information to criminally investigate or prosecute any alcohol or drug abuse patient.[facility] the event this information is protected by the Federal Confidentiality of Alcohol and Drug Abuse Patient Records regulations: The Federal rules restrict any use of the information to criminally investigate or prosecute any alcohol or drug abuse patient.[facility] the event this information is protected by the Federal Confidentiality of Alcohol and Drug Abuse Patient Records regulations: The Federal rules restrict any use of the information to criminally investigate or prosecute any alcohol or drug abuse patient.[facility] the event this information is protected by the Federal Confidentiality of Alcohol and Drug Abuse Patient Records regulations: The Federal rules restrict any use of the information to criminally investigate or prosecute any alcohol or drug abuse patient.[facility] the event this information is protected by the Federal Confidentiality of Alcohol and Drug Abuse Patient Records regulations: The Federal rules restrict any use of the information to criminally investigate or prosecute any alcohol or drug abuse patient.[facility] Hospital[facility] the event this information is protected by the Federal Confidentiality of Alcohol and Drug Abuse Patient Records regulations: The Federal rules restrict any use of the information to criminally investigate or prosecute any alcohol or drug abuse patient.[facility] HospitalIn the event this information is protected by the Federal Confidentiality of Alcohol and Drug Abuse Patient Records regulations: The Federal rules restrict any use of the information to criminally investigate or prosecute any alcohol or drug abuse patient.[facility] Hospital[facility] the event this information is protected by the Federal Confidentiality of Alcohol and Drug Abuse Patient Records regulations: The Federal rules restrict any use of the information to criminally investigate or prosecute any alcohol or drug abuse patient.[facility] Care Teams (unrecognized sec tion and content) Restorative Care Technician Relationship Specialty Start Date End Date Tierra Klein MD PCP - General Internal Medicine 02/14/17 Restorative Care Technician Relationship Specialty Start Date End Date Tierra Klein MD PCP - General Internal Medicine 02/14/17 Restorative Care Technician Relationship Specialty Start Date End Date Tierra Klein MD PCP - General Internal Medicine 02/14/17 Restorative Care Technician Relationship Specialty Start Date End Date Tierra Klein MD PCP - General Internal Medicine 02/14/17 Restorative Care Technician Relationship Specialty Start Date End Date Tierra Klein MD PCP - General Internal Medicine 02/14/17 Restorative Care Technician Relationship Specialty Start Date End Date Tierra Klein MD PCP - General Internal Medicine 02/14/17 Restorative Care Technician Relationship Specialty Start Date End Date Tierra Klein MD PCP - General Internal Medicine 02/14/17 Restorative Care Technician Relationship Specialty Start Date End Date Tierra Klein MD PCP - General Internal Medicine 02/14/17 Restorative Care Technician Relationship Specialty Start Date End Date Tierra Klein MD PCP - General Internal Medicine 02/14/17 Restorative Care Technician Relationship Specialty Start Date End Date Tirera Klein MD PCP - General Internal Medicine 02/14/17 Restorative Care Technician Relationship Specialty Start Date End Date Tierra Klein MD PCP - General Internal Medicine 02/14/17 Restorative Care Technician Relationship Specialty Start Date End Date Tierra Klein MD PCP - General Internal Medicine 02/14/17 Restorative Care Technician Relationship Specialty Start Date End Date Tierra Klein MD PCP - General Internal Medicine 02/14/17 Restorative Care Technician Relationship Specialty Start Date End Date Tierra Klein MD PCP - General Internal Medicine 02/14/17 Restorative Care Technician Relationship Specialty Start Date End Date Tierra Klein MD PCP - General Internal Medicine 02/14/17 [...] BE BASED ON THE PRIMARY CLINICAL RECORDS. [facility] [employer] [facility]. provides no warranty or guarantee of the accuracy or completeness of information in this document.
[2024-01-01 18:59] LABS: Prothrombin Time (Protime)PT. 13.4 SECONDS (11.7-14.9)
[2024-01-01 19:00] LABS: Partial Thromboplast Time 27.6 Seconds (24.1-36.2)
--- NOTE | 2024-01-01 19:00 | CM.ED ---
Social Work: Date of referral: 01/01/2024 Reason for Referral: Stroke Alert Patient provided consent to social work visit. Patient's son Ant was with patient. ash pit worker provided emotional support and made sure patient and patient's son were doing ok and didn't need anything. Patient resting and Ant stated he was ok and denied needing anything at this time. Shwetha Chavarria, MANAGER BEHAVIORAL, CLEANING MACHINE OPERATOR
[2024-01-01 19:09] LABS: Anion Gap 9 (5-15); BUN 16 mg/dL (7-18); BUN/Creat Ratio 22.8 RATIO (10-20); Chloride 107 mmol/L (98-107); EST Glomerular Filtration Rate 84 mL/min (>60); Est Glom Filt Rate - Afr Amer 102 mL/min (>60); Estimated Creatinine Clearance 36.26 ml/min; Glucose 113 mg/dL (74-106); Potassium 3.3 mmol/L (3.5-5.1); Sodium Level 141 mmol/L (136-145); Troponin-I HS 12 pg/mL (3.0-54.0)
[2024-01-01 19:20] LABS: Absolute Lymphocyte Count 1.14 X10^3/uL (0.83-4.51); Absolute Neutrophil Count 2.8 X10^3/uL (2.0-7.7); Basophil# 0.03 X10^3/uL; Basophil% 0.6 % (0-1); Eosinophil# 0.01 X10^3/uL; Eosinophils% 0.2 % (0-5); Hematocrit 38.1 % (37-47); Hemoglobin 12.4 g/dL (12.0-15.0); Lymphocyte # 1.14 X10^3/ul (0.83-4.51); Lymphocyte % 21.3 % (19-41); Mean Corp Hgb Conc 32.5 g/dL (32-36); Mean Corpuscular Hgb 29.2 pg (27.0-32.0); Mean Corpuscular Volume 89.9 fL (81-99); Mean Platelet Vol. 9.4 fl (6.2-12.0); Monocyte# 1.39 X10^3/uL; Monocyte% 25.9 % (0-10); NRBC Flagged by Analyzer 0 % (0-5); Neutrophil # 2.76 X10^3/uL (2.7-7.7); Neutrophil % 51.4 % (47-70); Platelet Count 276 K/mm3 (150-450); RBC Distribution Width CV 13.2 % (11.6-14.6); RBC Distribution Width SD 43.5 fl (35.1-43.9); Red Blood Count 4.24 M/mm3 (4.2-5.4); White Blood Count 5.4 K/mm3 (4.4-11.0)
[2024-01-01 19:23] LABS: POSITIVE COUNT NO; POSITIVE DIFFERENTIAL NO; POSITIVE MORPHOLOGY NO
[2024-01-01] MEDS: Potassium Chloride Oral Tablet 20 MEQ 40 MEQ PO (20:39)
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
--- OUTSIDE RECORDS SUMMARY | 2024-01-01 22:10 | XMS RPT_ITS | CCD ---
Author Organization [facility] CliniSyid Care Team Providers Care Assignment Clerk Name Role Phone ALEXIS CAMPBELLIL M Unavailable [...] Primary Care Unavailable TIERRA KLEIN Referring Unavailable TIERRA KLEIN Admitting Unavailable TIERRA KLEIN Attending Unavailable [...] Provider UnavailTierra Andrade MD Primary Care Provider Tierra Klein MD Primary Care Provider [phone] TIERRA KLEIN Primary Care Unavailable DINORA KLEIN [...] Propensity to adverse reactions (disorder) [facility] Repository (3 sources) estradiol; Translations: [ESTRADIOL] Drug Allergy 8 [facility] Repository (2 sources) estradiol Drug Allergy [facility] Repository (2 sources) penicillin Drug Allergy [facility] Repository (2 sources) Sulfonamides (Antibiotic) Drug allergy (disorder) [facility] Repository (2 sources) NSAID Drug allergy (disorder) [facility] Repository (2 sources) NOVOCAIN Drug allergy (disorder) [facility] Repository (17 sources) Acetate; Translations: [ACETATE SALT] Drug Allergy 5 Hives [facility] (17 sources) Adhesive Tape; Translations: [ADHESIVE TAPE (ROSINS)] Propensity to adverse reactions to substance 1 Rash, Itching [facility] (17 sources) Ciprofloxacin; Translations: [CIPROFLOXACIN] Drug Allergy 9 Swelling [facility] Work Phone: (16 sources) Estradiol Drug Allergy 8 GI Upset [facility] Work Phone: (17 sources) Estradiol / Levonorgestrel; Translations: [ESTRADIOL-DANIELLE ORGESTREL] Drug Allergy 8 Rash [facility] Work Phone: (17 sources) Estrogens, Conjugated (CORRECTION); Translations: [CONJUGATED ESTROGENS] Drug Allergy 8 GI Upset [facility] Work Phone: (17 sources) hydrOXYzine; Translations: [HYDROXYZINE] Drug Allergy 4 Other: See Comments [facility] Work Phone: (17 sources) Non-steroidal anti-inflammator y agent; Translations: [NSAIDS (NON-STEROIDAL ANTI-INFLAMMATOR Y DRUG)] Propensity to adverse reactions 8 GI Upset [facility] Work Phone: (17 sources) Penicillins; Translations: [PENICILLINS] Propensity to adverse reactions 5 [facility] Work Phone: (17 sources) Procaine; Translations: [PROCAINE HCL] Drug Allergy 5 [facility] Work Phone: (17 sources) Sulfonamides (Antibiotic); Translations: [SULFA (SULFONAMIDE ANTIBIOTICS)] Propensity to adverse reactions 5 [facility] Work Phone: (17 sources) Sodium Phosphates-Pramo x-Gly; Translations: [SODIUM PHOSPHATES-PRAMO X-GLY] Drug Intolerance 1 Intolerance [facility] Medications Current Medications Medication Drug Class(es) [...] on above: [facility] a day as needed for [...] Acute recurrent sinusitis, unspecified location Use 1 [place] in each nostril once daily. 16 g 2 03/22/2016 Active Comment on above: Use 1 [place] in each nostril once daily. mineral oil [...] Test Name Value Interpretation Reference Range Facility [facility] 11-26-2023 CNOV Office Visit ([facility] ) ----- ESTHER HILL ([id number]) 1935 F Date Time Provider Department 11/26/23 11:00 AM ORESTES HOOKS [facility] During your visit today, we recorded the following information about you: Temperature Pulse Respiration Blood pressure 97.8 degrees 68/minute 16/minute 122/70 Weight 49.4 kg GeoEitanOrestesEDILIA goldman.COMMUNITY HEALTH DIRECTOR 11/26/2023 2:23 PM Signed Subjective Patient came in with complaints of right-sided rib pain. Patient says has been going on for about a month. Patient denies any difficulty breathing. Patient denies any pain when she urinates. Patient denies any other symptoms. Patient denies known injury and said she was pulling weeds before the pain started. The history is provided by the patient. No flight communications specialist was used. Review of Systems Constitutional: Negative. [...] SURGICAL HISTORY OF bile duct surg @ [place] PAST SURGICAL HISTORY OF 03/2015 had vein [...] Tape (Rosins), Estradiol, Fleet Phospho-Soda Accu-Prep [Sodium Wfohthbxsk-Umhriw-App], Hydroxyzine, Novocain [Procaine Hcl], Nsaids (Non-Steroidal Anti-Inflammatory [...] coagulans (PROBIOTIC, (more content not included)... Normal [facility] 11-26-2023 [facility] Telephone ([facility]) ----- ESTHER HILL ([id number]) 1935 F Date Time Provider Department 11/26/23 ORESTES HOOKS [facility] During your visit today, we recorded the following information about you: Orestes Hooks APRN.[facility] 11/26/2023 2:23 PM Signed Please call [...] (FLONASE) 50 mcg/actuation nasal spray Use 1 [place] in each nostril once daily. - calcium [...] lower quadrant [R10.31] 09/11/2008 08/24/2011 NO SHOW [836027] 11/25/2010 09/07/2013 Vitamin D deficiency [E55.9] 06/21/2011 Osteoporosis [M81.0] 12/27/2011 SBO (small bowel obstruction) ([facility]) [K56.609] 04/22/2012 Anxiety [F41.9] 10/30/2013 Dry eyes [...] diarrhea [K58.0] 03/05/2015 History of Clostridium difficile [NTU8871] 03/05/2015 Weight loss [R63.4] 03/05/2015 Family history of Crohn's disease [Z83.79] 03/05/2015 Diarrhea [R19.7] 04/30/2015 Ex-smoker [Z87.891] 05/06/2015 Well adult exam [Z00.00] 05/06/2015 Stenosis of left carotid artery [I65.22] 05/16/2015 Closed displaced fracture of proximal (more content not included)... Normal [facility] XR RIB/CHST 3V AP RIB/OBL/CH ST [...] left costophrenic angle consistent with pleural fibrosis. 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 No acute findings in the chest. 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 Metal Shaping Machine Operator: IBETH Transcribe Date/Time: Nov 26 2023 2:13P Dictated by : COLLIN ARRIAGA MD This examination was interpreted and the report reviewed and electronically signed by: COLLIN ARRIAGA MD on Nov 26 2023 2:16PM [facility] Radiology Study observation (narrative) [facility] XR Ribs - right Views and Ch est PAOrdered By: Ccf Provider on 11-26-2023 [facility] CNOVon 10-24-2023 CNOV Office Visit ([facility]WSTR ) ----- ESTHER HILL ([id number]) 1935 F Date Time Provider Department 10/24/23 3:30 PM [facility] During your visit today, we [...] no longer on eliquis. She was in [place] ED, and left due to wait. I advised that this time in day I could not get an US here in [place], and offered to check in [place], that to see her here in [facility] I would need same day results. Patient declined visit and to go to [place], and will go back to [place] ED There were no vitals taken for [...] have confirmed and edited as necessary, the [facility] ASSESSMENT/PLAN: 1. Left leg pain - ICD9: [...] detail warranting prompt ER evaluation. Edna Carranza APRN.COMMUNITY HEALTH DIRECTOR Allergies As of Date: 10/24/2023 Noted Allergy [...] Date Reviewed: 06/08/2023 Reviewed by: Ronnie Vidal APRN.COMMUNITY HEALTH DIRECTOR - Fully Assessed Primary Visit Diagnosis:Left leg [...] (FLONASE) 50 mcg/actuation nasal spray Use 1 [place] in each nostril once daily. - calcium carbonate 600 mg-cholecalciferol 400 units (CALCIUM 600 + D) 600 mg(1,500mg) -400 unit tab Take 1 tablet by (more content not included)... Normal [facility] CNOVon 06-08-2023 CNOV Office Visit (UCWSTR ) ----- ESTHER HILL ([id number]) 1935 F Date Time Provider Department 06/08/23 [...] by coughs, sneezes, and direct contact, especially bwjw-vm-chcr. A respiratory tract infection usually clears up [...] Vidal AP (more content not included)... Normal [facility] CNOVon 06-03-2023 CNOV Office Visit ([facility]WSTR ) ----- ESTHER HILL ([id number]) 1935 F Date Time Provider Department 06/03/23 12:45 PM DINORA KLEIN [facility] During your visit today, we recorded the following information about you: Temperature Pulse Respiration Blood pressure 97.5 degrees 70/minute 18/minute 125/70 Weight 46.2 kg Dinora Klein APRN.COMMUNITY HEALTH DIRECTOR 06/03/2023 2:54 PM Signed This note was [...] SURGICAL HISTORY OF bile duct surg @ [place] PAST SURGICAL HISTORY OF 03/2015 had vein [...] Tape (Rosins), Estradiol, Fleet Phospho-Soda Accu-Prep [Sodium Ulwxtcygoz-Deevyo-Bph], Hydroxyzine, Novocain [Procaine Hcl], Nsaids (Non-Steroidal Anti-Inflammatory Drug), Penicillins, Premarin [Conjugated Estrogens], and Sulfa (Sulfonamide Antibiotics) MEDICATIONS aspirin, enteric coated (ASPIRIN, ENTERIC COATED) 81 mg EC tablet Take 81 (more content not included)... Normal [facility] No Panel Informationon 06-02 IMPRESSION: No acute osseous abnormality Metal Shaping Machine Operator: IBETH Transcribe Date/Time: Jun 03 2023 1:43P Dictated by : NJ GARZA MD This examination was interpreted and the report reviewed and electronically signed by: NJ GARZA MD on Jun 03 2023 1:48PM [facility] DIVISION OF RADIOLOGY Radiology Study observation (narrative) [facility] No Panel InformationOrdered By: Ccf Provider on 06-03-2023 [facility] XR FOREARM 2V AP/LAT RTon XR [...] space narrowing. IMPRESSION: No acute osseous abnormality Metal Shaping Machine Operator: [facility] Transcribe Date/Time: Jun 03 2023 1:43P Dictated by : NJ GARZA MD This examination was interpreted and the report reviewed and electronically signed by: NJ GARZA MD on Jun 03 2023 1:48PM EST [id number] Normal [facility] XR HUMERUS 2V AP/LAT RTon XR [...] space narrowing. IMPRESSION: No acute osseous abnormality Metal Shaping Machine Operator: PSCB Transcribe Date/Time: Jun 03 2023 1:43P Dictated by : NJ GARZA MD This examination was interpreted and the report reviewed and electronically signed by: NJ GARZA MD on Jun 03 2023 1:48PM EST [id number] Normal [facility] XR Humerus - right AP and [...] joint space narrowing. DIVISION OF RADIOLOGY Provider, [facility] - 06/03/2023 * * *Final Report* * [...] narrowing. IMPRESSION IMPRESSION: No acute osseous abnormality Metal Shaping Machine Operator: PSCB Transcribe Date/Time: Jun 03 2023 1:43P Dictated by : NJ GARZA MD This examination was interpreted and the report reviewed and electronically signed by: NJ GARZA MD on Jun 03 2023 1:48PM EST [facility] XR Radius and Ulna - right [...] joint space narrowing. DIVISION OF RADIOLOGY Provider, [facility] - 06/03/2023 * * *Final Report* * [...] narrowing. IMPRESSION IMPRESSION: No acute osseous abnormality Metal Shaping Machine Operator: [facility] Transcribe Date/Time: Jun 03 2023 1:43P Dictated by : NJ GARZA MD This examination was interpreted and the report reviewed and electronically signed by: NJ GARZA MD on Jun 03 2023 1:48PM [facility] XR THORACIC 2V AP/LATon 05-13 XR THORACIC [...] L1 has developed since the prior study Metal Shaping Machine Operator: IBETH Transcribe Date/Time: Jun 03 2023 1:40P Dictated by : NJ GARZA MD This examination was interpreted and the report reviewed and electronically signed by: NJ GARZA MD on Jun 03 2023 1:43PM EST [id number] Normal [facility] XR Thoracic spine AP and Lat eralon 06-03-2023 IMPRESSION: Compression fracture of the vertebral body of L1 has developed since the prior study Metal Shaping Machine Operator: IBETH Transcribe Date/Time: Jun 03 2023 1:40P [...] degenerative disc disease. DIVISION OF RADIOLOGY Provider, [facility] - 06/03/2023 * * *Final Report* * [...] L1 has developed since the prior study Metal Shaping Machine Operator: IBETH Transcribe Date/Time: Jun 03 2023 1:40P Dictated by : NJ GARZA MD This examination was interpreted and the report reviewed and electronically signed by: NJ GARZA MD on Jun 03 2023 1:43PM [facility] CNOVon 12-25-2022 CNOV Office Visit (UCWSTR ) ----- ESTHER HILL ([id number]) 1935 F Date Time Provider Department 12/25/22 2:15 PM TRACEY VALLE [facility] During your visit today, we recorded the following information about you: Tracey Valle APRN.[facility] 12/25/2022 2:48 PM Signed Subjective HPI [...] SURGICAL HISTORY OF bile duct surg @ [place] PAST SURGICAL HISTORY OF 03/2015 had vein [...] Tape (Rosins), Estradiol, Fleet Phospho-Soda Accu-Prep [Sodium Rzzrlgbzxg-Vmjgfc-Ysc], Hydroxyzine, Novocain [Procaine Hcl], Nsaids (Non-Steroidal Anti-Inflammatory [...] (FLONASE) 50 mcg/actuation nasal spray Use 1 [place] in each nostril once daily. ONE DAILY MULTIVITAMIN ORAL Take by mouth once daily. vitamins oxyCODONE-acetaminophen (more content not included)... Normal [facility] CNOVon 12-24-2022 CNOV Office Visit ([facility]WSTR ) ----- ESTHER HILL ([id number]) 1935 F Date Time Provider Department 12/24/22 6:45 PM TRACEY VALLE [facility] During your visit today, we recorded the following information about you: Temperature Pulse Respiration Blood pressure 98.4 degrees 84/minute 18/minute 126/78 Weight 45.8 kg Tracey Valle APRN.COMMUNITY HEALTH DIRECTOR 12/24/2022 7:03 PM Signed Subjective Laceration Estherkang [...] SURGICAL HISTORY OF bile duct surg @ [place] PAST SURGICAL HISTORY OF 03/2015 had vein [...] Tape (Rosins), Estradiol, Fleet Phospho-Soda Accu-Prep [Sodium Dahuuvyuwu-Mgegwl-Ogj], Hydroxyzine, Novocain [Procaine Hcl], Nsaids (Non-Steroidal Anti-Inflammatory [...] Take 5 (more content not included)... Normal [facility] No Panel Informationon 08-26 IMPRESSION: No acute osseous abnormality Metal Shaping Machine Operator: IBETH Transcribe Date/Time: Aug 26 2022 2:39P Dictated by : NJ GARZA MD This examination was interpreted and the report reviewed and electronically signed by: NJ GARZA MD on Aug 26 2022 2:43PM [facility] DIVISION OF RADIOLOGY Radiology Study observation (narrative) [facility] No Panel InformationOrdered By: Ccf Provider on 08-26-2022 [facility] XR Ankle - right AP and [...] maintained. DIVISION OF RADIOLOGY Provider, Zo Mcgee [facility] - 08/26/2022 * * *Final [...] maintained. IMPRESSION IMPRESSION: No acute osseous abnormality Metal Shaping Machine Operator: [facility] Transcribe Date/Time: Aug 26 2022 2:39P Dictated by : NJ GARZA MD This examination was interpreted and the report reviewed and electronically signed by: NJ GARZA MD on Aug 26 2022 2:43PM [facility] XR Foot - right AP [...] spaces are maintained. DIVISION OF RADIOLOGY Provider, [facility] - 08/26/2022 * * *Final Report* * [...] maintained. IMPRESSION IMPRESSION: No acute osseous abnormality Metal Shaping Machine Operator: PSCNaty Transcribe Date/Time: Aug 26 2022 2:39P Dictated by : NJ GARZA MD This examination was interpreted and the report reviewed and electronically signed by: NJ GARZA MD on Aug 26 2022 2:43PM EST [facility] XR FOOT GENERAL 3V AP/LAT/OB L RIGHTon 08-17-2022 [facility] XR Foot - right AP and Later al and obliqueon 08-17-2022 IMPRESSION: No acute bony finding. Metal Shaping Machine Operator: PSCB Transcribe Date/Time: Aug 17 2022 6:25P Dictated by : AURELIO VENCES MD This examination was interpreted and the report reviewed and electronically signed by: AURELIO VENCES MD on Aug 17 2022 7:13PM [facility] DIVISION OF RADIOLOGY * * *Final Report* [...] evident. IMPRESSION IMPRESSION: No acute bony finding. Metal Shaping Machine Operator: PSCB Transcribe Date/Time: Aug 17 2022 6:25P Dictated by : AURELIO VENCES MD This examination was interpreted and the report reviewed and electronically signed by: AURELIO VENCES MD on Aug 17 2022 7:13PM EST [facility] Radiology Study observation (narrative) [facility] XR Foot - right AP and Later al and obliqueOrdered By: Ccf Provider on 08-17-2022 [facility] PANCREATIC ELASTASE, FECAL [ CCL]on 05-24-2020 PANCREATIC ELASTASE, FECAL [CCL] Normal [facility] Comment on above: Result Comment: _PAN CREATIC ELASTASE, FECAL [CCL]_ SEE SEPARATE REPORT Performed By: #### 2 [id number] #### [place] [address]674 GI PARASITE PANEL BY PCR [CC L]on 05-15-2020 GI PARASITE PANEL BY PCR [CCL] Normal [facility] Comment on above: Result Comment: ELEAZAR Palacios WILD13 IN CCL. ARUP CODE: GI PARAPCR Performed By: #### 2 [id number] #### [place] [id number] Panc Elastase, Fecalon 05-09 Panc Elastase, Fecal 345 ug/g Normal >=100 [facility] Comment on above: Performed By: #### C DIALLO #### [facility] Micro[facility] - [address] [place] [id number] CALPROTECTIN, FECAL [CCL]on 05-08-2020 Calprotectin Comment INTERPRETIVE INFORMATION: Normal [facility] Comment on above: Result Comment: INTE RPRETIVE INFORMATION: Calprotectin, Fecal <50.0 mg/kg : Normal 50.0-120.0 mg/kg: Borderline. Test should be re-evaluated in 4-6 weeks. >120.0 mg/kg : Abnormal [facility] [address] [place] [address] Stan Mauricio III, M.D. [id number] Performed By: #### 2 29204 #### [address] [address] Calprotectin Interp Normal Normal [facility] Comment on above: Performed By: #### 2 72415 #### [facility],[address] [place] [address] Protein [Mass/Vol] g/dL Normal <50.0 [facility] Comment on above: Performed By: #### 2 99853 #### [facility],[address] [place] [address] Calprotectin, Fecalon 2020 Calprotectin Comment Normal [facility] Comment on above: Result Comment: INTE RPRETIVE INTERPRETIVE INFORMATION: Calprotectin, Fecal <50.0 mg/kg : Normal 50.0-120.0 mg/kg: Borderline. Test should be re-evaluated in 4-6 weeks. >120.0 mg/kg : Abnormal INFORMATION: INTERPRETIVE INFORMATION: Calprotectin, Fecal <50.0 mg/kg : Normal 50.0-120.0 mg/kg: Borderline. Test should be re-evaluated in 4-6 weeks. >120.0 mg/kg : Abnormal Performed By: #### C DIALLO #### [facility] Microbiology - [address] [place] [address] Calprotectin Interp NORMAL Normal [facility] Reference [facility] Comment on above: Performed By: #### C DIALLO #### [facility] Microbiology - [address] [place], [place] [id number] Protein [Mass/Vol] g/dL Normal <50.0 [facility] Reference Lab Comment on above: Performed By: #### C DIALLO #### [facility] Microbiology - [address] [place] [id number] CULTURE STOOLon 05-05-2020 CULTURE STOOL CULTURE STOOL _STOOL CULTURE_ CAMPYLOBACTER Not detected SALMONELLA Not Detected YERSINIA Not detected SHIGELLA Not Detected [id number] M I C R O B I O L O G Y R E P O R T FINAL -------- Antimicrobial Susceptibility and Organism Identification Report --------- Specimen Number : [id number] Requested : 05/05/20 Specimen Source : STOOL Collected : 05/05/20 13:00 [place] of Isolation : OUTPATIENT Received : 05/05/20 13:00 Requesting Physician : SHANNAN ------- Patient/Specimen Tests and Comments Specimen Comments --------- --------- FINAL REPORT: SALMONELLA:NEGATIVE SHIGELLA:NEGATIVE YERSINIA:NEGATIVE CAMPYLOBACTER:NEGATIVE ------- Tech : _ Source : STOOL ID # : [id number] FINAL Report Date : / / : Collected : 05/05/20 13:00 [id number] Normal [facility] Comment on above: Performed By: #### 2 [id number] #### [facility],[address] [place] [address] OCCULT BLOOD STOOL (CANCER S CREENING)on 05-05-2020 OCCULT BLOOD STOOL Normal [facility] Comment on above: Result Comment: NEGA TIVE NEGATIVE NEGATIVE Performed By: #### 2 95499 #### [facility],[address] [place] [address] MR LUMBAR SP WO CONTRASTon 0 03-21-2020 MR LUMBAR SP WO CONTRAST [address] [address] Patient: ESTHER HILL Phone#: : 1935 Age: 84 Gender: F Pt. Type: Out Account: [id number] Location: [facility] Ordering: DR. ANDREINA GALLEGOS Exam Date: 03/21/2020/13:00 Family Phys: Charge Code: [id number] Physician: Ross Order #: [id number] DLP Dose#: PROCEDURE: MRI LUMBAR SPINE WITHOUT [...] 84 Gender: F Pt. Type: Out Account: [id number] Location: [facility] Ordering: DR. ANDREINA GALLEGOS Exam Date: 03/21/2020/13:00 Family Phys: Charge Code: [id number] Physician: Ross Order #: [id number] DLP Dose#: 1. Multilevel degenerative change. There is foraminal impingement most marked at L3-4 and L4-5. 2. Anterior wedging at T12 is present and stable since November 18, 2018. Dictated by: Ritika Baugh MD on 03/21/2020 at 13:45 Approved by: Ritika Baugh MD on 03/21/2020 at 13:56 Normal [facility] CBC + DIFFon 03-19-2020 Basophils (Bld) [#/Vol] 0.10 x10EE3/UL Normal 0.00 - 0.10 [facility] Comment on above: Performed By: #### 2 21781 #### [facility],[address] [place] [address] Basophils/100 WBC (Bld) 0.9 % Normal 0.0 - 2.0 [facility] Comment on above: Performed By: #### 2 70691 #### [place] [id number] CBC + DIFF Normal [facility] Comment on above: Result Comment: CBC- COMPLETE BLOOD COUNT Performed By: #### 2 98702 #### [facility],[address] [place], [place] [phone] Eosinophils (Bld) [#/Vol] 0.10 x10EE3/UL Normal 0.00 - 0.50 [facility] Comment on above: Performed By: #### 2 72362 #### [facility],[address] [place], [place] [id number] Eosinophils/100 WBC (Bld) 1.0 % Normal 0.0 - 7.0 [facility] Comment on above: Performed By: #### 2 72884 #### [facility],[address] [place], [place] [phone] Erythrocyte distribution width (RBC) [Ratio] 13.6 % Normal 12.0 - 15.6 [facility] Comment on above: Performed By: #### 2 92768 #### [facility],[address] [place], [place] [phone] Hematocrit (Bld) [Volume fraction] 34.0 % Normal 34.0 - 46.0 [facility] Comment on above: Performed By: #### 2 76793 #### [facility],[address] [place] [address] Hemoglobin (Bld) [Mass/Vol] 11.8 g/dL Low 12.0 - 16.0 [facility] Comment on above: Performed By: #### 2 50962 #### [facility],[address] [place] [address] Lymphocytes (Bld) [#/Vol] 1.60 x10EE3/UL Normal 0.80 - 2.80 [facility] Comment on above: Performed By: #### 2 46900 #### [facility],[address] [place] [address] Lymphocytes/100 WBC (Bld) 25.8 % Normal 20.0 - 45.0 [facility] Comment on above: Performed By: #### 2 66854 #### [facility],[address] [place] [address] MANUAL DIFF N/A Normal [facility] Comment on above: Performed By: #### 2 42795 #### [facility],[address] [place] [address] MCH (RBC) [Entitic mass] 31 pg Normal 27 - 33 [facility] Comment on above: Performed By: #### 2 94317 #### [facility],[address] [place] [place] [address] 16358 MCHC (RBC) [Mass/Vol] 35 X10 3 Normal 32 - 36 [facility] Comment on above: Performed By: #### 2 06650 #### [facility],[address] [place] [address] 65016 MCV (RBC) [Entitic vol] 89 fL Normal 80 - 99 [facility] Comment on above: Performed By: #### 2 85194 #### [facility],[address] [place] [address] 26345 Monocytes (Bld) [#/Vol] 0.70 x10EE3/UL Normal 0.20 - 1.00 [facility] Comment on above: Performed By: #### 2 02174 #### [facility],[address] [place] [address] 60846 MONOS % 10.6 % High 0.0 - 10.0 [facility] Comment on above: Performed By: #### 2 55465 #### [facility],[address] [place] [address] 77234 Morphology Herberth (Bld) [Interp] N/A Normal [facility] Comment on above: Result Comment: {CD] Performed By: #### 2 33906 #### [address] [address] Neutrophils (Bld) [#/Vol] 3.90 x10EE3/UL Normal 1.50 - 7.10 [facility] Comment on above: Performed By: #### 2 52597 #### [facility],[address] [place] [address] 10752 Neutrophils/100 WBC (Bld) 61.7 % Normal 46.0 - 76.0 [facility] Comment on above: Performed By: #### 2 88273 #### [address] [address] Platelet mean volume (Bld) [Entitic vol] 7.0 fL Normal 6.6 - 10.5 [facility] Comment on above: Result Comment: AUTO MATED DIFFERENTIAL Performed By: #### 2 71531 #### [address] [address] Platelets (Bld) [#/Vol] 360 x10EE3/UL Normal 150 - 450 [facility] Comment on above: Performed By: #### 2 60348 #### [address] [address] RBC (Bld) [#/Vol] 3.83 x 10EE6/UL Low 4.10 - 5.30 [facility] Comment on above: Performed By: #### 2 62765 #### [address] [address] WBC (Bld) [#/Vol] 6.3 x 10EE3/UL Normal 4.5 - 10.8 [facility] Comment on above: Performed By: #### 2 21688 #### [facility],[address] [place] [address] 35831 CMP with eGFRon 03-19-2020 Age - Reported 84 years Normal [facility] Comment on above: Performed By: #### 2 16106 #### [address] [address] Albumin [Mass/Vol] 3.6 g/dL Normal 3.4 - 5.0 [facility] Comment on above: Performed By: #### 2 82814 #### [facility],[address] [place] [address] 09974 Albumin/Globulin [Mass ratio] 1.2 {ratio} Normal 0.9 - 1.6 [facility] Comment on above: Performed By: #### 2 80486 #### [facility],[address] [place] [address] 64489 ALK PHOS 91 U/L Normal 46 - 116 [facility] Comment on above: Performed By: #### 2 36248 #### [facility],[address] [place] [address] 50531 ALT/SGPT 31 U/L Normal 14 - 59 [facility] Comment on above: Performed By: #### 2 24409 #### [facility],[address] [place] [address] 13695 Anion gap [Moles/Vol] 10 mmol/L Normal 10 - 20 [facility] Comment on above: Performed By: #### 2 51116 #### [facility],[address] [place] [address] 76633 AST/SGOT 23 U/L Normal 13 - 39 [facility] Comment on above: Performed By: #### 2 57378 #### [facility],[address] [place] [address] 57173 B/C RATIO 23 ratio Normal 0 - 30 [facility] Comment on above: Performed By: #### 2 15792 #### [facility],[address] [place] [address] 91923 Bilirubin [Mass/Vol] 0.4 mg/dL Normal 0.2 - 1.0 [facility] Comment on above: Performed By: #### 2 71470 #### [facility],[address] [place] [address] 09845 Calcium [Mass/Vol] 8.8 mg/dL Normal 8.5 - 10.1 [facility] Comment on above: Performed By: #### 2 16955 #### [facility],[address] [place] [address] 37120 Chloride [Moles/Vol] 105 mmol/L Normal 98 - 107 [facility] Comment on above: Performed By: #### 2 13421 #### [facility],[address] [place] [address] 01793 CO2 [Moles/Vol] 30.8 mmol/L Normal 21.0 - 32.0 [facility] Comment on above: Performed By: #### 2 33251 #### [place] [address] Creatinine [Mass/Vol] 0.6 mg/dL Normal 0.5 - 1.0 [facility] Comment on above: Performed By: #### 2 13131 #### [address] [address] GFR/1.73 sq M predicted among non-blacks MDRD (S/P/Bld) [Vol rate/Area] Normal [facility] Comment on above: Result Comment: COMP REHENSIVE METABOLIC PANEL Performed By: #### 2 06522 #### [address] [address] GFR/1.73 sq M predicted among non-blacks MDRD (S/P/Bld) [Vol rate/Area] mL/min/{1.73_m2} Normal 60 - 999 [facility] Comment on above: Result Comment: ACCO RDING TO THE NATIONAL KIDNEY DISEASE EDUCATION PROGRAM(NKDE), A NORMAL eGFR IS A VALUE GREATER THAN OR EQUAL TO 60 ML/MIN/1.73 SQ METERS. CHRONIC KIDNEY DISEASE: <60mL/MIN/1.73 SQ METERS KIDNEY FAILURE: <15mL/MIN/1.73 SQ METERS THIS TEST SHOULD ONLY BE USED FOR PATIENTS 18 YEARS OF AGE AND OLDER. Performed By: #### 2 08338 #### [place] [id number] Globulin (S) [Mass/Vol] 3.1 g/dL Normal 1.5 - 3.8 [facility] Comment on above: Performed By: #### 2 73393 #### [facility],[address] [place] [address] 07888 Glucose [Mass/Vol] 94 mg/dL Normal 74 - 106 [facility] Comment on above: Performed By: #### 2 67630 #### [facility],[address] [place] [address] 58148 Potassium [Moles/Vol] 3.4 mmol/L Low 3.5 - 5.1 [facility] Comment on above: Performed By: #### 2 48209 #### [facility],[address] [place] [address] 73354 Protein [Mass/Vol] 6.7 g/dL Normal 6.4 - 8.2 [facility] Comment on above: Performed By: #### 2 86415 #### [facility],[address] [place] [address] 25197 Sodium [Moles/Vol] 142 mmol/L Normal 136 - 145 [facility] Comment on above: Performed By: #### 2 63717 #### [facility],[address] [place] [address] 33995 Urea nitrogen [Mass/Vol] 14 mg/dL Normal 7 - 18 [facility] Comment on above: Performed By: #### 2 69925 #### [facility],[address] [place] [address] CHEST W/O CONTRASTon 09-11 CT CHEST W/O CONTRAST [place] [address] Patient: ESTHER HILL Phone#: : 1935 Age: 83 Gender: F Pt. Type: Out Account: [id number] Location: 052 Ordering: [facility] Exam Date: 09/21/2019/12:53 Family Phys: VINITA GANT Charge Code: 617710 Physician: Ross Order #: [id number] DLP Dose#: PROCEDURE: CT CHEST WITHOUT CONTRAST COMPARISON: [facility], CT, ABDOMEN/PELVIS W CON, 11/18/2018, 11:02. [facility], CT, CHEST PE W CON, 12/06/2013, 19:22. [facility], CT, CHEST PE W CON, 09/20/2016, 13:28. [facility], CT, CHEST PE W CON, 03/17/2017, 20:17. [...] 83 Gender: F Pt. Type: Out Account: [id number] Location: 052 Ordering: VINITA [employer] Exam Date: 09/21/2019/12:53 Family Phys: VINITA GANT Charge Code: [id number] Physician: Ross Order #: [id number] DLP Dose#: BONES: There is diffuse bony [...] Amaya MD on 09/21/2019 at 16:30 Normal [facility] SHOULDER COMPLETE RTon 09-20 SHOULDER COMPLETE RT [place] [address] Patient: ESTHER HILL. Phone#: : 1935 Age: 83 Gender: F Pt. Type: Out Account: [id number] Location: 2 Ordering: VINITA GANT Exam Date: 09/21/2019/13:02 Family Phys: VINITA GANT Charge Code: [id number] Physician: Ross Order #: [id number] DLP Dose#: PROCEDURE: X-RAY SHOULDER COMPLETE RT [...] Amaya MD on 09/21/2019 at 15:07 Normal [facility] EMERGENCY REPORTon 0 EMERGENCY REPORT [facility] EMERGENCY ROOM REPORT NAME ACCOUNT SEX AGE ADMIT DISCHARGE PT MED. RECORD# NUMBER DATE DATE TYPE SERGIO [id number] F 83 08/24/19 08/25/19 3 ESTHER Mirza [id number] ROOM: ER DATE OF : 1935 DICTATING [...] Emergency Room Report ESTHER HILL : 1935 adventitious sounds are noted. [...] motor or sensory deficits are noted. 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 Capillary refill less than [...] Louis Stanley DO 08/24/19 22:09 JOB #: [id number] Transcribed By: clint 08/26/19 06:21 Electronically signed by: E-Sign: Dr. Louis Stanley D.O. 08/26/19 19:35 Page 2 of 2 ESTHER HILL Emergency Room Report Normal [facility] EMERGENCY REPORT [facility] EMERGENCY ROOM REPORT NAME ACCOUNT SEX AGE ADMIT DISCHARGE PT MED. RECORD# NUMBER DATE DATE TYPE SERGIO [id number] F 83 08/24/19 08/25/19 3 ESTHER Mirza [id number] ROOM: ER DATE OF : 1935 DICTATING [...] Louis Stanley DO 08/25/19 01:10 JOB #: [id number] Transcribed By: clint 08/26/19 07:31 Electronically signed by: E-Sign: Dr. Louis Stanley D.O. 08/26/19 19:35 Page 1 of 2 ESTHER HILL Emergency Room Report ESTHER HILL : 1935 Page 2 of 2 ESTHER HILL Emergency Room Report Normal [facility] CBC + DIFFon 08-25-2019 Basophils (Bld) [#/Vol] 0.00 x10EE3/UL Normal 0.00 - 0.10 [facility] Comment on above: Performed By: #### 2 46195 #### [facility],[address] [place] [address] Basophils/100 WBC (Bld) 0.5 % Normal 0.0 - 2.0 [facility] Comment on above: Performed By: #### 2 84597 #### [facility],[address] [place], [place] [phone] CBC + DIFF Normal [facility] Comment on above: Result Comment: CBC- COMPLETE BLOOD COUNT Performed By: #### 2 52713 #### [facility],[address] [place], [place] [phone] Eosinophils (Bld) [#/Vol] 0.00 x10EE3/UL Normal 0.00 - 0.50 [facility] Comment on above: Performed By: #### 2 55676 #### [facility],[address] [place], [place] [phone] Eosinophils/100 WBC (Bld) 0.3 % Normal 0.0 - 7.0 [facility] Comment on above: Performed By: #### 2 06600 #### [facility],[address] [place], [place] [phone] Erythrocyte distribution width (RBC) [Ratio] 12.9 % Normal 12.0 - 15.6 [facility] Comment on above: Performed By: #### 2 29831 #### [facility],[address] [place], [place] [phone] Hematocrit (Bld) [Volume fraction] 31.2 % Low 34.0 - 46.0 [facility] Comment on above: Performed By: #### 2 83643 #### [facility],[address] [place] [address] 49152 Hemoglobin (Bld) [Mass/Vol] 10.9 g/dL Low 12.0 - 16.0 [facility] Comment on above: Performed By: #### 2 70591 #### [facility],[address] [place] [address] 92350 Lymphocytes (Bld) [#/Vol] 0.90 x10EE3/UL Normal 0.80 - 2.80 [facility] Comment on above: Performed By: #### 2 54097 #### [facility],[address] [place] [address] 66467 Lymphocytes/100 WBC (Bld) 10.5 % Low 20.0 - 45.0 [facility] Comment on above: Performed By: #### 2 42825 #### [facility],[address] [place] [address] 84367 MANUAL DIFF N/A Normal [facility] Comment on above: Performed By: #### 2 77307 #### [facility],[address] [place] [address] 40869 MCH (RBC) [Entitic mass] 30 pg Normal 27 - 33 [facility] Comment on above: Performed By: #### 2 03833 #### [facility],[address] [place] [address] 57689 MCHC (RBC) [Mass/Vol] 35 X10 3 Normal 32 - 36 [facility] Comment on above: Performed By: #### 2 41985 #### [facility],[address] [place] [address] 13789 MCV (RBC) [Entitic vol] 87 fL Normal 80 - 99 [facility] Comment on above: Performed By: #### 2 75228 #### [facility],[address] [place] [address] 85462 Monocytes (Bld) [#/Vol] 1.30 x10EE3/UL High 0.20 - 1.00 [facility] Comment on above: Performed By: #### 2 68008 #### [facility],[address] [place] [address] 93316 MONOS % 14.8 % High 0.0 - 10.0 [facility] Comment on above: Performed By: #### 2 01533 #### [facility],[address] [place] [address] 91654 Morphology Herberth (Bld) [Interp] N/A Normal [facility] Comment on above: Performed By: #### 2 69392 #### [facility],[address] [place] [address] 51748 Neutrophils (Bld) [#/Vol] 6.30 x10EE3/UL Normal 1.50 - 7.10 [facility] Comment on above: Performed By: #### 2 80373 #### [facility],[address] [place] [address] 02368 Neutrophils/100 WBC (Bld) 73.9 % Normal 46.0 - 76.0 [facility] Comment on above: Performed By: #### 2 00819 #### [facility],[address] [place] [address] 97827 Platelet mean volume (Bld) [Entitic vol] 7.1 fL Normal 6.6 - 10.5 [facility] Comment on above: Result Comment: AUTO MATED DIFFERENTIAL Performed By: #### 2 42528 #### [facility],[address] [place] [address] 31179 Platelets (Bld) [#/Vol] 259 x10EE3/UL Normal 150 - 450 [facility] Comment on above: Performed By: #### 2 45277 #### [facility],[address] [place] [address] 22150 RBC (Bld) [#/Vol] 3.58 x 10EE6/UL Low 4.10 - 5.30 [facility] Comment on above: Performed By: #### 2 96493 #### [facility],[address] [place] [address] 06343 WBC (Bld) [#/Vol] 8.5 x 10EE3/UL Normal 4.5 - 10.8 [facility] Comment on above: Performed By: #### 2 02187 #### [facility],[address] [place] [address] 49099 CMP with eGFRon 08-25-2019 Age - Reported 83 years Normal [facility] Comment on above: Performed By: #### 2 38466 #### [facility],[address] [place] [address] 65722 Albumin [Mass/Vol] 3.8 g/dL Normal 3.4 - 4.8 [facility] Comment on above: Performed By: #### 2 12867 #### [facility],[address] [place] [address] 43376 Albumin/Globulin [Mass ratio] 1.5 {ratio} Normal 0.9 - 1.6 [facility] Comment on above: Performed By: #### 2 11416 #### [facility],[address] [place] [address] 88577 ALK PHOS 89 U/L Normal 38 - 126 [facility] Comment on above: Performed By: #### 2 32445 #### [facility],[address] [place] [address] 61050 ALT/SGPT 41 U/L High 8 - 35 [facility] Comment on above: Performed By: #### 2 69878 #### [facility],[address] [place] [address] 42624 Anion gap [Moles/Vol] 13 mmol/L Normal 10 - 20 [facility] Comment on above: Performed By: #### 2 93769 #### [facility],[address] [place] [address] 53573 AST/SGOT 37 U/L Normal 13 - 39 [facility] Comment on above: Performed By: #### 2 67981 #### [facility],[address] [place] [address] 86033 B/C RATIO 21 ratio Normal 0 - 30 [facility] Comment on above: Performed By: #### 2 50226 #### [facility],[address] [place] [address] 15317 Bilirubin [Mass/Vol] 0.4 mg/dL Normal 0.0 - 1.5 [facility] Comment on above: Performed By: #### 2 67898 #### [facility],[address] [place] [address] 60252 Calcium [Mass/Vol] 8.7 mg/dL Normal 8.6 - 10.2 [facility] Comment on above: Performed By: #### 2 47870 #### [facility],[address] [place] [address] 60620 Chloride [Moles/Vol] 99 mmol/L Normal 98 - 107 [facility] Comment on above: Performed By: #### 2 80829 #### [facility],[address] [place] [address] 44442 CO2 [Moles/Vol] 26.7 mmol/L Normal 21.0 - 31.0 [facility] Comment on above: Performed By: #### 2 54008 #### [facility],[address] [place] [address] 80226 Creatinine [Mass/Vol] 0.7 mg/dL Normal 0.6 - 1.2 [facility] Comment on above: Performed By: #### 2 45483 #### [facility],[address] [place] [address] 46492 GFR/1.73 sq M predicted among non-blacks MDRD (S/P/Bld) [Vol rate/Area] mL/min/{1.73_m2} Normal 60 - 999 [facility] Comment on above: Result Comment: ACCO RDING TO THE NATIONAL KIDNEY DISEASE EDUCATION PROGRAM(NKDE), A NORMAL eGFR IS A VALUE GREATER THAN OR EQUAL TO 60 ML/MIN/1.73 SQ METERS. CHRONIC KIDNEY DISEASE: <60mL/MIN/1.73 SQ METERS KIDNEY FAILURE: <15mL/MIN/1.73 SQ METERS THIS TEST SHOULD ONLY BE USED FOR PATIENTS 18 YEARS OF AGE AND OLDER. Performed By: #### 2 47141 #### [facility],[address] [place] [address] 55343 GFR/1.73 sq M predicted among non-blacks MDRD (S/P/Bld) [Vol rate/Area] Normal [facility] Comment on above: Result Comment: COMP REHENSIVE METABOLIC PANEL Performed By: #### 2 94099 #### [facility],[address] [place] [address] 95430 Globulin (S) [Mass/Vol] 2.5 g/dL Normal 1.5 - 3.8 [facility] Comment on above: Performed By: #### 2 38962 #### [facility],[address] [place] [address] 38289 Glucose [Mass/Vol] 107 mg/dL High 74 - 106 [facility] Comment on above: Performed By: #### 2 66109 #### [facility],[address] [place] [address] 63283 Potassium [Moles/Vol] 2.8 mmol/L Critically low 3.5 - 5.1 [facility] Comment on above: Result Comment: { CA LLED TO STEVEN @1605/ADL { READ BACK BY STEVEN RA@5533 Performed By: #### 2 32927 #### [facility],[address] [place] [address] 39454 Protein [Mass/Vol] 6.3 g/dL Low 6.4 - 8.3 [facility] Comment on above: Performed By: #### 2 91466 #### [facility],[address] [place] [address] 08295 Sodium [Moles/Vol] 136 mmol/L Normal 136 - 145 [facility] Comment on above: Performed By: #### 2 81848 #### [facility],[address] [place] [address] 32263 Urea nitrogen [Mass/Vol] 15 mg/dL Normal 6 - 20 [facility] Comment on above: Performed By: #### 2 53872 #### [facility],[address] [place] [address] 22122 CULTURE URINEon 08-25-2019 CULTURE URINE CULTURE URINE _URINE CULTURE_ M I C R O B I O L O G Y R E P O R T FINAL -------- Antimicrobial Susceptibility and Organism Identification Report --------- Specimen Number : [id number] Requested : 08/24/19 Specimen Source : URINE [...] _ Source : URINE ID # : [id number] FINAL Report Date : / / : [...] Ticar/K Clav'ate for gram positives based on medical front desk specialist's breakpoints. ------- Tech : _ Source : URINE ID # : [id number] FINAL Report Date : / / : Collected : 08/24/19 22:53 08/27/19.50.JEAN-PAUL. 08/26/19.1013.BKO. SEND TO PHARMACY? NO 08/27/19.649.JEAN-PAUL.COMPLET E NO Normal [facility] Comment on above: Performed By: #### 2 82274 #### [facility],[address] [place] [address] URINALYSIS WITH MICROSCOPYon 08-25-2019 Amorphous NONE Normal [facility] Comment on above: Performed By: #### 2 80739 #### [facility],[address] [place] [address] Bacteria LM.HPF (Urine sed) [#/Area] 4+ Normal [facility] Comment on above: Performed By: #### 2 86560 #### [facility],[address] [place] [address] Bilirubin [Mass/Vol] Negative Normal NORMAL: NEGATIVE [facility] Comment on above: Performed By: #### 2 58659 #### [facility],[address] [place] [address] Blood 50 Abnormal NORMAL: NEGATIVE [facility] Comment on above: Performed By: #### 2 42775 #### [facility],[address] [place] [address] Casts LM.LPF (Urine sed) [#/Area] NONE Normal [facility] Comment on above: Performed By: #### 2 14666 #### [facility],[address] [place] [address] Clarity (U) clear Normal NORMAL: CLEAR [facility] Comment on above: Performed By: #### 2 51335 #### [facility],[address] [place] [address] Color (U) yellow Normal NORMAL: YELLOW [facility] Comment on above: Performed By: #### 2 81614 #### [facility],[address] [place] [address] Crystals LM Nom (Urine sed) NONE Normal [facility] Comment on above: Performed By: #### 2 97942 #### [facility],[address] [place] [address] Epi Cells OCC Normal [facility] Comment on above: Performed By: #### 2 63436 #### [facility],[address] [place] [address] 22341 Glucose [Mass/Vol] NORM Normal NORMAL: NORMAL [facility] Comment on above: Performed By: #### 2 46274 #### [facility],[address] [place] [address] 43654 Ketone 50 Abnormal NORMAL: NEGATIVE [facility] Comment on above: Performed By: #### 2 08366 #### [facility],[address] [place] [address] 48891 Mucous 1+ Normal [facility] Comment on above: Performed By: #### 2 80766 #### [facility],[address] [place] [address] 05908 Nitrite Ql (U) Negative Normal NORMAL: NEGATIVE [facility] Comment on above: Performed By: #### 2 99110 #### [facility],[address] [place] [address] 54108 pH (Bld) 6 Normal NORMAL: 5.0-8.0 [facility] Comment on above: Performed By: #### 2 62646 #### [facility],[address] [place] [address] 88052 Protein (U) [Mass/Vol] 100 mg/dL Abnormal NORMAL: NEGATIVE [facility] Comment on above: Performed By: #### 2 81887 #### [facility],[address] [place] [address] 22390 Rbc 5-10 Normal 0-3 / hpf [facility] Comment on above: Performed By: #### 2 38358 #### [facility],[address] [place] [address] 47693 Sp [place] 1.015 Normal NORMAL: 1.010-1.030 [facility] Comment on above: Performed By: #### 2 13860 #### [facility],[address] [place] [address] Specimen type Nom (Spec) UNSPECIFIED Normal [facility] Comment on above: Performed By: #### 2 34885 #### [facility],[address] [place] [address] URINALYSIS WITH MICROSCOPY Normal [facility] Comment on above: Result Comment: URIN ALYSIS Performed By: #### 2 39711 #### [facility],[address] [place] [address] Urobilinog NORM Normal NORMAL: NORMAL [facility] Comment on above: Performed By: #### 2 94241 #### [facility],[address] [place] [address] Wbc 26-50 Normal 0-5 / hpf [facility] Comment on above: Performed By: #### 2 87069 #### [facility],[address] [place] [address] WBC (Bld) [#/Vol] 100 Abnormal NORMAL: NEGATIVE [facility] Comment on above: Result Comment: URIN E MICROSCOPIC Performed By: #### 2 90045 #### [facility],[address] [place] [address] Yeast LM Ql (Urine sed) NONE Normal [facility] Comment on above: Performed By: #### 2 42720 #### [facility],[address] [place] [address] Main OR Intraop Recordon Main OR Intraop Record Normal [facility] [place] Procedure Noteon 07-04-2017 Anesthesiology Consultation Normal [facility] [place] Anesthesiology Consultation Normal [facility] [place] Discharge Summaryon 07-01-19 Discharge Summary Normal [facility] [facility] ([place]) Procedure Noteon 06-30-2017 Procedure Note Normal [facility] ([place]) Non-Paste Up Artist Cytology Reporton Non-Paste Up Artist Cytology Report . Pathology ReportsAccession: Collected Date/Time: Received Date/Time: Pathologist:[id number] 06/28/2017 09:20 EDT 06/28/2017 11:39 EDT MD MANDY NUNES Non-Paste Up Artist Cytology ReportCLINICAL INFORMATION:DILATED COMMON BILE DUCTDIAGNOSIS:NEGATIVE FOR MALIGNANCYCOMMENT:SPARSEL Y CELLULAR SPECIMEN.SPECIMEN:BILIARY STENTGROSS DESCRIPTION:# of Monolayers: 1 # of Blocks:1Volume (ml) 10 Color: FIXED YELLOW FLUID WITH STENTElectronically Signed byPathology report verified by [facility] Hospitalcreened by: ART MGSElectronically signed by MANDY NUNES MDSign-Out Date: 06/29/2017 10:30Performing Lab: [address] Normal [facility] ([place]) Comment on above: Performed By: #### P LT, APTT, PRO ####[place] [address] APTTon 06-28-2017 aPTT Unknown Normal [facility] ([place]) Comment on above: Performed By: #### P LT, APTT, PRO ####[place] [address] aPTT 27.1 s Normal 25.0-35.0 [facility] ([place]) Comment on above: Result Comment: For Heparin anticoagulation therapy, the recommendedtherapeutic range is: 54-77 seconds (APTT Correlationwith Anti-Xa therapeutic range of 0.3-0.7 units/ml).PLEASE REFERENCE THE PHARMACY PROTOCOL FOR DOSING. Performed By: #### P LT, APTT, PRO ####[place] [address] Depart Summaryon 06-28-2017 Depart Summary Normal [facility] ([place]) Outpatient Patient Summaryon 06-28-2017 Outpatient Patient Summary Normal [facility] ([place]) PLTon 06-28-2017 Platelets 285 10 3/mcL Normal 150-450 [facility]) Comment on above: Performed By: #### P LT, APTT, PRO ####[place] [address] PROon 06-28-2017 INR Coag RelTime (PPP) 0.9 {INR} Normal [facility] ([place]) Comment on above: Result Comment: [employer] (CHEST, 1992, 102:312S-25S)recommended therapeutic range for oral anticoagulant therapy is:LOW RISK: Prophylaxis of venous thrombosis INR: 2.0-3.0 Treatment of pulmonary embolism 2.0-3.0 Prevention of systemic embolism 2.0-3.0HIGH RISK: Mechanical prosthetic valves 2.5-3.5 Performed By: #### P LT, APTT, PRO ####[place] [address] [place], [place] [id number] Prothrombin time (PT) Coag time (PPP) 10.1 s Normal 9.0-14.5 [facility] ([place]) Comment on above: Result Comment: Effe ctive 09/26/07, Protime results may be affected by some antibiotics (i.e. Ciprofloxacin, Azithromycin, Bactrim) which may potentiate the action of oral anticoagulants, with further increases in Protime/INR. Performed By: #### P LT, APTT, PRO ####[place] [address] [place] [address] Pat Eduon 06-28-2017 Pat Edu Normal [facility] ([place]) Procedure Noteon 06-28-2017 Procedure Note Normal [facility] ([place]) Procedure Note Normal [facility] ([place]) XR ERCP BILIARY AND PANCREAT IC DUCTon [...] AM Sign Date: 06/28/2017 10:37:52 AM Normal [facility] ([place]) Discharge Summaryon 03-18-19 18 Discharge Summary Normal [facility] ([place]) Procedure Noteon 03-18-2017 Procedure Note Normal [facility] ([place]) XR ERCP BILIARY AND PANCREAT IC DUCTon [...] PM Sign Date: 03/16/2017 2:42:45 PM Normal [facility]) APTTon 03-15-2017 aPTT 28.6 s Normal 25.0-35.0 [facility]) Comment on above: Result Comment: For Heparin anticoagulation therapy, the recommendedtherapeutic range is: 54-77 seconds (APTT Correlationwith Anti-Xa therapeutic range of 0.3-0.7 units/ml).PLEASE REFERENCE THE PHARMACY PROTOCOL FOR DOSING. Performed By: #### P LT, APTT, PRO ####[place] [address] aPTT Unknown Normal [facility]) Comment on above: Performed By: #### P LT, APTT, PRO ####[place] [address] Depart Summaryon 03-15-2017 Depart Summary Normal [facility]) Main OR Intraop Recordon Main OR Intraop Record Normal [facility]) Outpatient Patient Summaryon 03-15-2017 Outpatient Patient Summary Normal [facility]) PLTon 03-15-2017 Platelets 304 10 3/mcL Normal 150-450 [facility]) Comment on above: Performed By: #### P LT, APTT, PRO ####[place] [address] PROon 03-15-2017 INR Coag RelTime (PPP) 0.9 {INR} Normal [facility] ([place]) Comment on above: Result Comment: [employer] (CHEST, 1992, 102:312S-25S)recommended therapeutic range for oral anticoagulant therapy is:LOW RISK: Prophylaxis of venous thrombosis INR: 2.0-3.0 Treatment of pulmonary embolism 2.0-3.0 Prevention of systemic embolism 2.0-3.0HIGH RISK: Mechanical prosthetic valves 2.5-3.5 Performed By: #### P LT, APTT, PRO ####[place] [address] [place] [address] Prothrombin time (PT) Coag time (PPP) 10.2 s Normal 9.0-14.5 [facility] ([place]) Comment on above: Result Comment: Effe ctive 09/26/07, Protime results may be affected by some antibiotics (i.e. Ciprofloxacin, Azithromycin, Bactrim) which may potentiate the action of oral anticoagulants, with further increases in Protime/INR. Performed By: #### P LT, APTT, PRO ####[place] [address] [place] [address] EMERGENCY REPORTon 11-24-201 7 EMERGENCY REPORT [facility] EMERGENCY ROOM REPORT NAME NUMBER SEX AGE ADMIT DISC TYPE MED.RECORD# ESTHER CAHWLA [id number] F 81 12/07/2016 12/07/2016 Giuseppe [id number] ROOM:ER DATE OF :1935 PHYSICIAN NO.:[id number] PHYSICIAN NAME: PHYSICIAN:Aurelio Torre D.O. HISTORY OF [...] day. EMERGENCY ROOM REPORT ESTHER CHAWLA 1 [facility] EMERGENCY ROOM REPORT NAME NUMBER SEX AGE ADMIT DISC TYPE MED.RECORD# ESTHER CHAWLA [id number] F 81 12/07/2016 12/07/2016 TheronROmer [id number] ROOM:ER DATE OF :1935 PHYSICIAN NO.:[id number] PHYSICIAN NAME: PHYSICIAN:Aurelio Torre D.O. D: Aurelio Torre D.O. TD: 12/07/2016 19:54:49 JOB #: [id number] DR. AURELIO TORRE EMERGENCY DEPARTMENT 02/04/17 20:10 Transcribed by: NMT 12/07/2016 19:54:49 Copy for: KAMRAN Barriga DO Copy for: PRANAV FERGUSON MD EMERGENCY ROOM REPORT ESTHER CHAWLA 2 Normal [facility] MR ABDOMEN W //T// W/O CONTR Ailyn 01-17-2017 MR ABDOMEN W //T// W/O CONTRAST [place] [address] Patient: ESTHER CHAWLA Phone#: : 1935 Age: 81 Gender: F Pt. Type: Out Account: [id number] Location: 052 Ordering: TIERRA KLEIN Exam Date: 01/17/2017/8:22 Family Phys: Charge Code: [id number] Physician: Ross Order #: [id number] DLP Dose#: PROCEDURE: MRI ABDOMEN WITH AND WITHOUT CONTRST COMPARISON: [facility], CT, LUMBAR SPINE W/O CON, 01/09/2017, 19:50. [...] 81 Gender: F Pt. Type: Out Account: [id number] Location: 2 Ordering: TIERRA KLEIN Exam Date: 01/17/2017/8:22 Family Phys: Charge Code: [id number] Physician: Ross Order #: [id number] DLP Dose#: CONCLUSION: 1. There is dilatation [...] Baugh MD on 01/17/2017 at 17:09 Normal [facility] BMP with eGFRon 01-14-2017 Age 81 years Normal [facility] Comment on above: Performed By: #### 2 95165 ####[facility],[address] [place] [address] Anion gap 12 mmol/L Normal - 20 [facility] Comment on above: Performed By: #### 2 48190 ####[facility],[address] [place] [address]803 Calcium 9.0 mg/dL Normal 8.6 - 10.2 [facility] Comment on above: Performed By: #### 2 31178 ####[facility],[address] [place], [place] [phone] Chloride 107 mmol/L Normal 98 - 107 [facility] Comment on above: Performed By: #### 2 01265 ####[facility],[address] [place] [address]40 CO2 26.8 mmol/L Normal 21.0 - 31.0 [facility] Comment on above: Performed By: #### 2 08649 ####[facility],[address] [place], [place] [phone] Creatinine 0.6 mg/dL Normal 0.6 - 1.2 [facility] Comment on above: Performed By: #### 2 36143 ####[facility],[address] [place] [address]14 eGFR (non-black) mL/min/{1.73_m2} Normal 60 - 999 [facility] Comment on above: Performed By: #### 2 17274 ####[facility],[address] [place] [address] 23445 Result Comment: ACCO RDING TO THE NATIONAL KIDNEY DISEASE EDUCATION PROGRAM(NKDE), A NORMAL eGFRIS A VALUE GREATER THAN OR EQUAL TO 60 ML/MIN/1.73 SQ METERS.CHRONIC KIDNEY DISEASE: <60mL/MIN/1.73 SQ METERSKIDNEY FAILURE: <15mL/MIN/1.73 SQ METERSTHIS TEST SHOULD ONLY BE USED FOR PATIENTS 18 YEARS OF AGE AND OLDER. eGFR (non-black) Normal [facility] Comment on above: Result Comment: BASI C METABOLIC PANEL Performed By: #### 2 27388 ####[facility],[address] [place], [place] [phone] Glucose mass conc 87 mg/dL Normal 74 - 106 [facility] Comment on above: Performed By: #### 2 45025 ####[place] [id number] Potassium molar conc 3.7 mmol/L Normal 3.5 - 5.1 [facility] Comment on above: Performed By: #### 2 63093 ####[facility],[address] [place] [address] Sodium 142 mmol/L Normal 136 - 145 [facility] Comment on above: Performed By: #### 2 03361 ####[place] [address] Urea nitrogen 16 mg/dL Normal 6 - 20 [facility] Comment on above: Performed By: #### 2 08160 ####[place] [address] EMERGENCY REPORTon 7 EMERGENCY REPORT [facility] EMERGENCY ROOM REPORT NAME NUMBER SEX AGE ADMIT DISC TYPE MED.RECORD# ESTHER CHAWLA [id number] F 81 01/09/2017 01/09/2017 Giuseppe [id number] ROOM:ER DATE OF :1935 PHYSICIAN NO.:[id number] PHYSICIAN NAME:Tierra Klein PHYSICIAN:KRISHAN ESPANA HISTORY OF [...] KRISHAN ESPANA TD: 01/10/2017 00:46:03 JOB #: [id number] DOOLRES [place] D.O. Emergency Department 01/11/17 04:05 Transcribed by: NMAnmol 01/10/2017 00:46:03 EMERGENCY ROOM REPORT ESTHER CHAWLA 1 [facility] EMERGENCY ROOM REPORT NAME NUMBER SEX AGE ADMIT DISC TYPE MED.RECORD# ESTHER CHAWLA [id number] F 81 01/09/2017 01/09/2017 Giuseppe [id number] ROOM:ER DATE OF :1935 PHYSICIAN NO.:[id number] PHYSICIAN NAME:Tierra Klein PHYSICIAN:KRISHAN ESPANA Copy for: STEVEN Barriga III Copy for: ERNIE MAYORGA MD EMERGENCY ROOM REPORT ESTHER CHAWLA 2 [facility] [place] CT LUMBAR W/O CONTRASTon CT LUMBAR W/O CONTRAST [address] [address] Patient: ESTHER CHAWLA Phone#: : 1935 Age: 81 Gender: F MRN: Pt. Type: ER Account: [id number] Location: 052 Ordering: [facility] Exam Date: 01/09/2017/19:50 Family Phys: TIERRA KLEIN Charge Code: [id number] Physician: Ross Order #: [id number] DLP Dose#: 12.00 PROCEDURE: CT LUMBAR SPINE WITHOUT CONTRAST COMPARISON: [facility], XR, LUMBAR SPINE COMPLETE, 01/09/2017, 19:01. INDICATIONS: [...] Gender: F MRN: Pt. Type: ER Account: [id number] Location: 052 Ordering: [facility] Exam Date: 01/09/2017/19:50 Family Phys: TIERRA KLEIN Charge Code: 745678 Physician: Ross Order #: [id number] DLP Dose#: 12.00 LUMBAR DISC LEVELS: L1-L2: [...] Rich MD on 01/09/2017 at 20:18 Normal [facility] LUMBO SACRAL COMPLETE MIN 4 VIEWSon 01-09-2017 LUMBO SACRAL COMPLETE MIN 4 VIEWS [place] [address] Patient: ESTHER CHAWLA Phone#: : 1935 Age: 81 Gender: F Pt. Type: ER Account: [id number] Location: 052 Ordering: KRISHAN ESPANA Exam Date: 01/09/2017/19:01 Family Phys: TIERRA KLEIN Charge Code: [id number] Physician: Ross Order #: [id number] DLP Dose#: PROCEDURE: X-RAY LUMBAR SPINE COMPLETE [...] Caitlyn Rich MD on 01/09/2017 at 19:51 [facility] PELVIS 1 or 2 VIEWSon 2016 [place] [address] Patient: ESTHER CHAWLA. Phone#: : 1935 Age: 81 Gender: F Pt. Type: ER Account: [id number] Location: [facility] Ordering: KRISHAN ESPANA Exam Date: 01/09/2017/19:04 Family Phys: TIERRA KLEIN Charge Code: [id number] Physician: Ross Order #: [id number] DLP Dose#: PROCEDURE: X-RAY PELVIS AP COMPARISON: [...] Rich MD on 01/09/2017 at 19:48 Normal [facility] EMERGENCY REPORTon 01-01-201 7 EMERGENCY REPORT [facility] EMERGENCY ROOM REPORT NAME NUMBER SEX AGE ADMIT DISC TYPE MED.RECORD# CAMMY ESTHER Hermes [id number] F 81 12/28/2016 12/28/2016 Giuseppe [id number] ROOM:ER DATE OF :1935 PHYSICIAN NO.:[id number] PHYSICIAN NAME:Tierra Klein PHYSICIAN:TOMA LUGO DO TIME [...] LUGO DO TD: 12/31/2016 00:00:26 JOB #: [id number] E-SIGN TOMA LUGO EMERGENCY DEPARTMENT 01/01/17 02:01 Transcribed by: NMT 12/31/2016 00:00:26 Copy for: BRITTNEY CHUA DO Copy for: ERNIE MAYORGA MD EMERGENCY ROOM REPORT ESTHER CHAWLA 1 Normal [facility] CT BRAIN W/O CONTRASTon 11-13 CT BRAIN W/O CONTRAST [place] [address] Patient: ESTHER CHAWLA Phone#: : 1935 Age: 81 Gender: F Pt. Type: ER Account: [id number] Location: [facility] Ordering: AURELIO TORRE Exam Date: 12/07/2016/1:58 Family Phys: TALABHISAS Charge Code: 347836 Physician: Ross Order #: [id number] DLP Dose#: 57.50 PROCEDURE: CT BRAIN WITHOUT [...] portions of left maxillary sinus. ORBITS: [place] ocular lenses are absent. Continued Report - Page 2 of 2 Patient: ESTHER CHAWLA Phone#: : 1935 Age: 81 Gender: F Pt. 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 CONCLUSION: 1. No appreciable acute intracranial abnormality. Dictated by: Caitlyn Rich MD on 12/07/2016 at 10:05 Approved by: Caitlyn Rich MD on 12/07/2016 at 10:05 Normal [facility] CT CERVICAL W/O CONTRASTon 0 12-07-2016 CT CERVICAL W/O CONTRAST [place] [address] Patient: ESTHER CHAWLA Phone#: : 1935 Age: 81 Gender: F Pt. Type: ER Account: [id number] Location: 052 Ordering: AURELIO LinusOmer KAMRAN Exam Date: 12/07/2016/1:58 Family Phys: TALAMYSAS Charge Code: 772689 Physician: Ross Order #: [id number] DLP Dose#: 6.50 PROCEDURE: CT CERVICAL WITHOUT CONTRAST COMPARISON: [facility], CT, CHEST PE W CON, 12/06/2013, 19:22. [...] 81 Gender: F Pt. Type: ER Account: [id number] Location: [facility] Ordering: AURELIO TORRE Exam Date: 12/07/2016/1:58 Family Phys: CARROL Charge Code: 682841 Physician: Ross Order #: [id number] DLP Dose#: 6.50 CERVICAL DISC LEVELS: C2-C3: [...] Rich MD on 12/07/2016 at 10:20 Normal [facility] CT FACIAL BONES W/O CONTRAST on 12-07-2016 CT FACIAL BONES W/O CONTRAST [address] [address] Patient: ESTHER CHAWLA Phone#: : 1935 Age: 81 Gender: F Pt. Type: ER Account: [id number] Location: 052 Ordering: AURELIO Theron KAMRAN Exam Date: 12/07/2016/1:58 Family Phys: TALAMYSAS Charge Code: 198453 Physician: Ross Order #: [id number] DLP Dose#: 30.50 PROCEDURE: CT FACIAL BONES [...] Normal. No mass or bone destruction. ORBITS: [place] ocular lenses are absent. No orbital wall fracture. CAVERNOUS SINUS: Symmetric appearance with no visible lesion. SALIVARY GLANDS: Normal. The parotid and submandibular glands are unremarkable. Continued Report - Page 2 of 2 Patient: ESTHER CHAWLA Phone#: : 1935 Age: 81 Gender: F MRN: Pt. Type: ER Account: [id number] Location: 052 Ordering: AURELIO Crump KAMRAN Exam Date: 12/07/2016/1:58 Family Phys: TALAMYSAS Charge Code: 678750 Physician: Ross Order #: [id number] DLP Dose#: 30.50 OTHER: Normal. The nasopharynx, [...] Rich MD on 12/07/2016 at 10:30 Normal [facility] EMERGENCY REPORTon 7 EMERGENCY REPORT [facility] EMERGENCY ROOM REPORT NAME NUMBER SEX AGE ADMIT DISC TYPE MED.RECORD# ESTHER CHAWLA [id number] F 80 11/17/2016 11/17/2016 Giuseppe [id number] ROOM: DATE OF :1935 PHYSICIAN NO.: PHYSICIAN [...] KRISHAN ESPANA TD: 11/18/2016 06:32:48 JOB #: [id number] DOLORES [place] D.O. Emergency Department 11/21/16 19:29 Transcribed by: NMT 11/18/2016 06:32:48 Copy for: STEVEN Barriga III Copy for: PRANAV FERGUSON MD EMERGENCY ROOM REPORT ESTHER CHAWLA 1 Normal [facility] EMERGENCY REPORTon 7 EMERGENCY REPORT [facility] EMERGENCY ROOM REPORT NAME NUMBER SEX AGE ADMIT DISC TYPE MED.RECORD# ESTHER CHAWLA [id number] F 80 11/09/2016 E.ROmer [id number] ROOM:ER DATE OF :1935 PHYSICIAN NO.: PHYSICIAN [...] KRISHAN ESPANA TD: 11/09/2016 19:03:13 JOB #: [id number] Krishan [place] D.O. Emergency Department 11/12/16 09:58 Transcribed by: NMAnmol 11/09/2016 19:03:13 Copy for: STEVEN Barriga III Copy for: PRANAV FERGUSON MD EMERGENCY ROOM REPORT ESTHER CHAWLA 1 Normal [facility] CBCon 11-09-2016 Basophils Auto #/vol (Bld) 0.10 x10EE3/UL Normal 0.00 - 0.10 [facility] Comment on above: Performed By: #### 2 54427 ####[place] [address] Basophils/100 WBC Auto (Bld) 1.0 % Normal 0.0 - 2.0 [facility] Comment on above: Performed By: #### 2 13594 ####[place] [address] Blood morphology N/A Normal [facility] Comment on above: Result Comment: {CD] Performed By: #### 2 80220 ####[place] [address] CBC Normal [facility] Comment on above: Result Comment: CBC- COMPLETE BLOOD COUNT Performed By: #### 2 71518 ####[facility],[address] [place] [address] Eosinophils 0.10 x10EE3/UL Normal 0.00 - 0.50 [facility] Comment on above: Performed By: #### 2 37806 ####[facility],[address] [place] [address] Eosinophils/100 leukocytes 1.6 % Normal 0.0 - 7.0 [facility] Comment on above: Performed By: #### 2 65456 ####[facility],[address] [place] [address] Erythrocyte distribution width Auto Ratio (RBC) 12.9 % Normal 12.0 - 15.6 [facility] Comment on above: Performed By: #### 2 28105 ####[facility],[address] [place] [address] Erythrocytes (RBC) 3.76 x 10EE6/UL Low 4.10 - 5.30 [facility] Comment on above: Performed By: #### 2 31271 ####[facility],[address] [place] [address] Hematocrit (HCT) 33.4 % Low 34.0 - 46.0 [facility] Comment on above: Performed By: #### 2 10669 ####[facility],[address] [place] [address] Hemoglobin mass conc (Bld) 10.9 g/dL Low 12.0 - 16.0 [facility] Comment on above: Performed By: #### 2 89348 ####[facility],[address] [place], [place] [address] Lymphocytes 2.40 x10EE3/UL Normal 0.80 - 2.80 [facility] Comment on above: Performed By: #### 2 88459 ####[facility],[address] [place] [address] 21374 Lymphocytes/100 leukocytes 38.4 % Normal 20.0 - 45.0 [facility] Comment on above: Performed By: #### 2 54214 ####[facility],[address] [place] [address] MANUAL DIFF N/A Normal [facility] Comment on above: Performed By: #### 2 42201 ####[facility],[address] [place] [address] MCH 29 pg Normal 27 - 33 [facility] Comment on above: Performed By: #### 2 59084 ####[facility],[address] [place] [address] MCHC mass conc (RBC) 33 X10 3 Normal 32 - 36 [facility] Comment on above: Performed By: #### 2 10501 ####[facility],[address] [place] [address] MCV 89 fL Normal 80 - 99 [facility] Comment on above: Performed By: #### 2 86130 ####[facility],[address] [place] [address] 14091 Monocytes 0.70 x10EE3/UL Normal 0.20 - 1.00 [facility] Comment on above: Performed By: #### 2 79532 ####[facility],[address] [place] [address] MONOS % 11.7 % High 0.0 - 10.0 [facility] Comment on above: Performed By: #### 2 81816 ####[place] [id number] Neutrophils 2.90 x10EE3/UL Normal 1.50 - 7.10 [facility] Comment on above: Performed By: #### 2 01410 ####[facility],[address] [place] [address] Neutrophils/100 WBC Auto (Bld) 47.3 % Normal 46.0 - 76.0 [facility] Comment on above: Performed By: #### 2 43457 ####[facility],[address] [place] [address] 40303 Platelet mean volume (PMV) 7.7 fL Normal 6.6 - 10.5 [facility] Comment on above: Result Comment: AUTO MATED DIFFERENTIAL Performed By: #### 2 85991 ####[facility],[address] [place] [address] 11805 Platelets 266 x10EE3/UL Normal 150 - 450 [facility] Comment on above: Performed By: #### 2 15644 ####[facility],[address] [place] [address] 13721 WBC (Leukocytes) 6.1 x 10EE3/UL Normal 4.5 - 10.8 [facility] Comment on above: Performed By: #### 2 87615 ####[facility],[address] [place] [address] 74464 CMP with eGFRon 11-09-2016 Age 80 years Normal [facility] Comment on above: Performed By: #### 2 51835 ####[facility],[address] [place] [address] 01339 Albumin 3.9 g/dL Normal 3.4 - 4.8 [facility] Comment on above: Performed By: #### 2 64231 ####[facility],[address] [place] [address]4838 Albumin/Globulin Ratio 1.7 {ratio} High 0.9 - 1.6 [facility] Comment on above: Performed By: #### 2 17375 ####[address] [address] ALK PHOS 75 U/L Normal 38 - 126 [facility] Comment on above: Performed By: #### 2 98685 ####[address] [address] ALT/SGPT 16 U/L Normal 8 - 35 [facility] Comment on above: Performed By: #### 2 35212 ####[facility],[address] [place] [address] 55648 Anion gap 9 mmol/L Low 10 - 20 [facility] Comment on above: Performed By: #### 2 46163 ####[facility],[address] [place] [address] 28856 AST/SGOT 17 U/L Normal 13 - 39 [facility] Comment on above: Performed By: #### 2 42770 ####[facility],[address] [place] [address] 41172 B/C RATIO 18 ratio Normal 0 - 30 [facility] Comment on above: Performed By: #### 2 71773 ####[facility],[address] [place] [address] 73058 Bilirubin (total) 0.2 mg/dL Normal 0.0 - 1.5 [facility] Comment on above: Performed By: #### 2 52633 ####[facility],[address] [place] [address] 07991 Calcium 8.8 mg/dL Normal 8.6 - 10.2 [facility] Comment on above: Performed By: #### 2 70188 ####[facility],[address] [place] [address] 49944 Chloride 105 mmol/L Normal 98 - 107 [facility] Comment on above: Performed By: #### 2 02636 ####[facility],[address] [place] [address] 26254 CO2 29.1 mmol/L Normal 21.0 - 31.0 [facility] Comment on above: Performed By: #### 2 44946 ####[facility],[address] [place] [address]3957 Creatinine 0.6 mg/dL Normal 0.6 - 1.2 [facility] Comment on above: Performed By: #### 2 87238 ####[facility],[address] [place] [address] 36833 eGFR (non-black) Normal [facility] Comment on above: Result Comment: COMP REHENSIVE METABOLIC PANEL Performed By: #### 2 37398 ####[facility],[address] [place] [address] 41455 eGFR (non-black) mL/min/{1.73_m2} Normal 60 - 999 [facility] Comment on above: Result Comment: ACCO RDING TO THE NATIONAL KIDNEY DISEASE EDUCATION PROGRAM(NKDE), A NORMAL eGFRIS A VALUE GREATER THAN OR EQUAL TO 60 ML/MIN/1.73 SQ METERS.CHRONIC KIDNEY DISEASE: <60mL/MIN/1.73 SQ METERSKIDNEY FAILURE: <15mL/MIN/1.73 SQ METERSTHIS TEST SHOULD ONLY BE USED FOR PATIENTS 18 YEARS OF AGE AND OLDER. Performed By: #### 2 87781 ####[facility],[address] [place] [address] 64158 Globulin 2.3 g/dL Normal 1.5 - 3.8 [facility] Comment on above: Performed By: #### 2 67030 ####[facility],[address] [place] [address] 64321 Glucose mass conc 77 mg/dL Normal 74 - 106 [facility] Comment on above: Performed By: #### 2 03958 ####[facility],[address] [place] [address] 35700 Potassium molar conc 4.1 mmol/L Normal 3.5 - 5.1 [facility] Comment on above: Performed By: #### 2 92608 ####[facility],[address] [place] [address] 71446 Protein 6.2 g/dL Low 6.4 - 8.3 [facility] Comment on above: Performed By: #### 2 19335 ####[facility],[address] [place] [address] 33210 Sodium 139 mmol/L Normal 136 - 145 [facility] Comment on above: Performed By: #### 2 73850 ####[facility],[address] [place] [address] 66404 Urea nitrogen 11 mg/dL Normal 6 - 20 [facility] Comment on above: Performed By: #### 2 77375 ####[facility],[address] [place] [address] 13065 EMERGENCY REPORTon EMERGENCY REPORT [facility] EMERGENCY ROOM REPORT NAME NUMBER SEX AGE ADMIT DISC TYPE MED.RECORD# ESTHER CHAWLA [id number] F 80 09/20/2016 E.ROmer [id number] ROOM:ER DATE OF :1935 PHYSICIAN NO.:[id number] PHYSICIAN NAME: PHYSICIAN:Mandy Torres DO CHIEF COMPLAINT: [...] Torres DO TD: 09/20/2016 13:14:52 JOB #: [id number] MANDY TORRES DO EMERGENCY DEPARTMENT 10/31/16 07:40 Transcribed by: CHUY 09/20/2016 13:14:52 Copy for: ZEINA Mancuso DO Copy for: ERNIE MAYORGA MD EMERGENCY ROOM REPORT CAMMYESTHER Hermes 1 Normal [facility] EMERGENCY REPORT [facility] EMERGENCY ROOM REPORT NAME NUMBER SEX AGE ADMIT DISC TYPE MED.RECORD# ESTHER CHAWLA [id number] F [id number] 09/20/2016 09/20/2016 Giuseppe [id number] ROOM:ER DATE OF :1935 PHYSICIAN NO.:[id number] PHYSICIAN NAME:Tierra Klein PHYSICIAN:Mandy Torres DO CHIEF [...] cardiac catheterization. The patient was transferred to [place]. The patient was received by Cardiology, Dr. [...] further questions. EMERGENCY ROOM REPORT ESTHER CHAWLA [address] [place] [address] EMERGENCY ROOM REPORT NAME NUMBER SEX AGE ADMIT DISC TYPE MED.RECORD# ESTHER CHAWLA [id number] F 80 09/20/2016 09/20/2016 Linus.ROmer [id number] ROOM:ER DATE OF :1935 PHYSICIAN NO.:[id number] PHYSICIAN NAME:Tierra Klein PHYSICIAN:Mandy Torres DO D: Mandy Torres DO TD: 09/20/2016 20:00:03 JOB #: [id number] MANDY TORRES DO EMERGENCY DEPARTMENT 10/31/16 07:40 Transcribed by: NMT 09/20/2016 20:00:03 Copy for: ZEINA Mancuso DO Copy for: ERNIE MAYORGA MD EMERGENCY ROOM REPORT CAMMYESTHER M 2 Normal [facility] Discharge Note-Nursingon Discharge Note-Nursing Normal [facility] History and Physical (Blank) on 09-21-2016 History and Physical (Blank) Normal [facility] APTTon 09-20-2016 aPTT 24.5 s Normal 21.6 - 35.4 [facility] Comment on above: Performed By: #### 2 91006 ####[facility],[address] [place] [address] BNP (B-TYPE NATRIURETIC PEPT AMERICA)on 09-20-2016 BNP 81 pg/mL Normal 1 - 100 [facility] Comment on above: Performed By: #### 2 41023 ####[facility],[address] [place] [address] CBCon 09-20-2016 Basophils Auto #/vol (Bld) 0.10 x10EE3/UL Normal 0.00 - 0.10 [facility] Comment on above: Performed By: #### 2 19812 ####[facility],[address] [place], [place] [id number] Basophils/100 WBC Auto (Bld) 0.9 % Normal 0.0 - 2.0 [facility] Comment on above: Performed By: #### 2 56912 ####[facility],[address] [place] [address] 15925 Blood morphology N/A Normal [facility] Comment on above: Performed By: #### 2 18213 ####[facility],[address] [place] [address] CBC Normal [facility] Comment on above: Result Comment: CBC- COMPLETE BLOOD COUNT Performed By: #### 2 37906 ####[facility],[address] [place] [address] 77157 Eosinophils 0.00 x10EE3/UL Normal 0.00 - 0.50 [facility] Comment on above: Performed By: #### 2 05894 ####[facility],[address] [place] [address] 87353 Eosinophils/100 leukocytes 0.3 % Normal 0.0 - 7.0 [facility] Comment on above: Performed By: #### 2 68999 ####[facility],[address] [place] [address] Erythrocyte distribution width Auto Ratio (RBC) 12.8 % Normal 12.0 - 15.6 [facility] Comment on above: Performed By: #### 2 39567 ####[facility],[address] [place] [address] Erythrocytes (RBC) 3.76 x 10EE6/UL Low 4.10 - 5.30 [facility] Comment on above: Performed By: #### 2 87756 ####[facility],[address] [place] [address] Hematocrit (HCT) 32.9 % Low 34.0 - 46.0 [facility] Comment on above: Performed By: #### 2 24578 ####[facility],[address] [place] [address] Hemoglobin mass conc (Bld) 11.0 g/dL Low 12.0 - 16.0 [facility] Comment on above: Performed By: #### 2 67018 ####[facility],[address] [place] [address] 56496 Lymphocytes 2.00 x10EE3/UL Normal 0.80 - 2.80 [facility] Comment on above: Performed By: #### 2 29737 ####[facility],[address] [place] [address] 47735 Lymphocytes/100 leukocytes 26.4 % Normal 20.0 - 45.0 [facility] Comment on above: Performed By: #### 2 70454 ####[facility],[address] [place] [address] MANUAL DIFF N/A Normal [facility] Comment on above: Performed By: #### 2 54412 ####[facility],[address] [place] [address] 39708 MCH 29 pg Normal 27 - 33 [facility] Comment on above: Performed By: #### 2 48288 ####[facility],[address] [place] [address] 84694 MCHC mass conc (RBC) 34 X10 3 Normal 32 - 36 [facility] Comment on above: Performed By: #### 2 64379 ####[facility],[address] [place] [address] 46380 MCV 88 fL Normal 80 - 99 [facility] Comment on above: Performed By: #### 2 24482 ####[facility],[address] [place] [address] 72681 Monocytes 0.70 x10EE3/UL Normal 0.20 - 1.00 [facility] Comment on above: Performed By: #### 2 97989 ####[facility],[address] [place] [address] 82106 MONOS % 9.1 % Normal 0.0 - 10.0 [facility] Comment on above: Performed By: #### 2 54526 ####[facility],[address] [place] [address] 82271 Neutrophils 4.70 x10EE3/UL Normal 1.50 - 7.10 [facility] Comment on above: Performed By: #### 2 85382 ####[facility],[address] [place] [address] 16579 Neutrophils/100 WBC Auto (Bld) 63.3 % Normal 46.0 - 76.0 [facility] Comment on above: Performed By: #### 2 70556 ####[facility],[address] [place] [address] 28108 Platelet mean volume (PMV) 7.5 fL Normal 6.6 - 10.5 [facility] Comment on above: Result Comment: AUTO MATED DIFFERENTIAL Performed By: #### 2 05096 ####[facility],[address] [facility] [address] Platelets 266 x10EE3/UL Normal 150 - 450 [facility] Comment on above: Performed By: #### 2 84248 ####[facility],[address] [facility] 23272 WBC (Leukocytes) 7.5 x 10EE3/UL Normal 4.5 - 10.8 [facility] Comment on above: Performed By: #### 2 58219 ####[facility],[address] [place] [address] 30212 CHEST APon 09-20-2016 CHEST AP [facility] [address] [place] [address] 9[address] Patient: ESTHER CHAWLA Phone#: : 1935 Age: 80 Gender: F Pt. Type: ER Account: [id number] Location: [facility] Ordering: MANDY TORRES Exam Date: 09/20/2016/12:09 Family Phys: ESVINABHIOREN Charge Code: [id number] Physician: Ross Order #: [id number] DLP Dose#: PROCEDURE: X-RAY CHEST AP 1 VIEW COMPARISON: [facility], XR, CHEST PA/LAT, 12/06/2013, 17:13. INDICATIONS: Chest [...] Baugh MD on 09/20/2016 at 12:59 Normal [facility] CMP with eGFRon 09-20-2016 Age 80 years Normal [facility] Comment on above: Performed By: #### 2 69616 ####[facility],[address] [place] [address] 44138 Albumin 3.9 g/dL Normal 3.4 - 4.8 [facility] Comment on above: Performed By: #### 2 80425 ####[facility],[address] [place] [address] 85600 Albumin/Globulin Ratio 1.6 {ratio} Normal 0.9 - 1.6 [facility] Comment on above: Performed By: #### 2 74274 ####[facility],[address] [place] [address] 24255 ALK PHOS 72 U/L Normal 38 - 126 [facility] Comment on above: Performed By: #### 2 67237 ####[facility],[address] [place] [address] 20781 ALT/SGPT 16 U/L Normal 8 - 35 [facility] Comment on above: Performed By: #### 2 86194 ####[facility],[address] [place] [address] 70289 Anion gap 11 mmol/L Normal 10 - 20 [facility] Comment on above: Performed By: #### 2 24791 ####[facility],[address] [place] [address] 05303 AST/SGOT 19 U/L Normal 13 - 39 [facility] Comment on above: Performed By: #### 2 85612 ####[facility],[address] [place] [address] 32339 B/C RATIO 25 ratio Normal 0 - 30 [facility] Comment on above: Performed By: #### 2 19359 ####[facility],[address] [place] [address] 78033 Bilirubin (total) 0.4 mg/dL Normal 0.0 - 1.5 [facility] Comment on above: Performed By: #### 2 02301 ####[facility],[address] [place] [address] 87699 Calcium 8.7 mg/dL Normal 8.6 - 10.2 [facility] Comment on above: Performed By: #### 2 41877 ####[facility],[address] [place] [address] 04150 Chloride 106 mmol/L Normal 98 - 107 [facility] Comment on above: Performed By: #### 2 74264 ####[facility],[address] [place] [address] 32977 CO2 22.8 mmol/L Normal 21.0 - 31.0 [facility] Comment on above: Performed By: #### 2 07313 ####[facility],[address] [place] [address] 64444 Creatinine 0.6 mg/dL Normal 0.6 - 1.2 [facility] Comment on above: Performed By: #### 2 00322 ####[facility],[address] [place] [address] 55419 eGFR (non-black) mL/min/{1.73_m2} Normal 60 - 999 [facility] Comment on above: Result Comment: ACCO RDING TO THE NATIONAL KIDNEY DISEASE EDUCATION PROGRAM(NKDE), A NORMAL eGFRIS A VALUE GREATER THAN OR EQUAL TO 60 ML/MIN/1.73 SQ METERS.CHRONIC KIDNEY DISEASE: <60mL/MIN/1.73 SQ METERSKIDNEY FAILURE: <15mL/MIN/1.73 SQ METERSTHIS TEST SHOULD ONLY BE USED FOR PATIENTS 18 YEARS OF AGE AND OLDER. Performed By: #### 2 41087 ####[facility],[address] [place] [address] 04288 eGFR (non-black) Normal [facility] Comment on above: Result Comment: COMP REHENSIVE METABOLIC PANEL Performed By: #### 2 65439 ####[facility],[address] [place] [address] 57737 Globulin 2.5 g/dL Normal 1.5 - 3.8 [facility] Comment on above: Performed By: #### 2 50153 ####[address] [address] Glucose mass conc 92 mg/dL Normal 74 - 106 [facility] Comment on above: Performed By: #### 2 21285 ####[facility],[address] [place], [place] [id number] Potassium molar conc 3.9 mmol/L Normal 3.5 - 5.1 [facility] Comment on above: Performed By: #### 2 46812 ####[facility],[address] [place], [place] [address] Protein 6.4 g/dL Normal 6.4 - 8.3 [facility] Comment on above: Performed By: #### 2 06349 ####[facility],[address] [place] [address] Sodium 136 mmol/L Normal 136 - 145 [facility] Comment on above: Performed By: #### 2 57867 ####[facility],[address] [place] [address] 27497 Urea nitrogen 15 mg/dL Normal 6 - 20 [facility] Comment on above: Performed By: #### 2 46877 ####[place] [address] [address] CHEST (PE PROTOCOL)on CT CHEST (PE PROTOCOL) [place] [address] Patient: ESTHER CHAWLA Phone#: : 1935 Age: 80 Gender: F Pt. Type: ER Account: [id number] Location: [facility] Ordering: MANDY TORRES Exam Date: 09/20/2016/13:28 Family Phys: TALABHISAS Charge Code: 939473 Physician: Ross Order #: [id number] DLP Dose#: 2.30 PROCEDURE: CT CHEST WITH CONTRAST FOR PE COMPARISON: [facility], CT, CHEST PE W CON, 12/06/2013, 19:22. [...] 80 Gender: F Pt. Type: ER Account: [id number] Location: [facility] Ordering: MANDY TORRES Exam Date: 09/20/2016/13:28 Family Phys: CARROL Charge Code: [id number] Physician: Ross Order #: [id number] DLP Dose#: 2.30 BONES: Degenerative changes of [...] Baugh MD on 09/20/2016 at 14:08 Normal [facility] Depart Summaryon 09-20-2016 Depart Summary Normal [facility] Inpatient Patient Summaryon 09-20-2016 Inpatient Patient Summary Normal [facility] PROTHROMBIN TIME AND INRon 0 09-20-2016 INR Coag RelTime (Bld) Normal [facility] Comment on above: Result Comment: PROT HROMBIN TIME AND INR Performed By: #### 2 21379 ####[facility],[address] [place], [place] [address] INR Coag RelTime (PPP) 0.9 {INR} Normal 0.8 - 1.2 [facility] Comment on above: Result Comment: T [...] MECHANICAL HEART VALVES Performed By: #### 2 29415 ####[facility],[address] [place], [place] [id number] PT-COUMADIN 10.4 sec Normal [facility] Comment on above: Performed By: #### 2 06831 ####[facility],[address] [place], [place] [phone] TROPONINon 09-20-2016 Troponin I.cardiac mass conc ng/mL Normal 0.00 - 0.05 [facility] Comment on above: Result Comment: Elev [...] as heterophile antibodies). Performed By: #### 2 36316 ####[facility],[address] [facility] [address] Vital Signs Date Time Vital Sign Value Performing Clinician Facility 11-26-2023 11:00-0400 Body mass index (BMI) [Ratio] 19.92 kg/m2 Orestes Hooks APRN.COMMUNITY HEALTH DIRECTOR Work Phone: [facility] 11-26-2023 11:00-0400 Body temperature 97.81 [degF] Orestes Hooks APRN.COMMUNITY HEALTH DIRECTOR Work Phone: [facility] 11-26-2023 11:00-0400 Body weight 49.4 kg Orestes Hooks APRN.COMMUNITY HEALTH DIRECTOR Work Phone: [facility] 11-26-2023 11:00-0400 Diastolic blood pressure 70 mm[Hg] Orestes Hooks APRN.COMMUNITY HEALTH DIRECTOR Work Phone: [facility] 11-26-2023 11:00-0400 Heart rate 68 /min Orestes Hooks APRN.COMMUNITY HEALTH DIRECTOR Work Phone: [facility] 11-26-2023 11:00-0400 Respiratory rate 16 /min Orestes Hooks APRN.COMMUNITY HEALTH DIRECTOR Work Phone: [facility] 11-26-2023 11:00-0400 SaO2% (BldA) [Mass fraction] 99 % Orestes Hooks APRN.COMMUNITY HEALTH DIRECTOR Work Phone: [facility] 11-26-2023 11:00-0400 Systolic blood pressure 122 mm[Hg] Orestes Hooks APRN.COMMUNITY HEALTH DIRECTOR Work Phone: [facility] 06-08-2023 10:16-0400 Body temperature 97.11 [degF] Ronnie Moomaw PRINTING ESTIMATOR.COMMUNITY HEALTH DIRECTOR Work Phone: [facility] 06-08-2023 10:16-0400 Body weight 46.4 kg Ronnie Moomaw PRINTING ESTIMATOR.COMMUNITY HEALTH DIRECTOR Work Phone: [facility] 06-08-2023 10:16-0400 Diastolic blood pressure 78 mm[Hg] Ronnie Moomaw PRINTING ESTIMATOR.COMMUNITY HEALTH DIRECTOR Work Phone: [facility] 06-08-2023 10:16-0400 Heart rate 63 /min Ronnie Moomaw PRINTING ESTIMATOR.COMMUNITY HEALTH DIRECTOR Work Phone: [facility] 06-08-2023 10:16-0400 Respiratory rate 18 /min Ronnie Moomaw PRINTING ESTIMATOR.COMMUNITY HEALTH DIRECTOR Work Phone: [facility] 06-08-2023 10:16-0400 SaO2% (BldA) [Mass fraction] 98 % Ronnie Moomaw PRINTING ESTIMATOR.COMMUNITY HEALTH DIRECTOR Work Phone: [facility] 06-08-2023 10:16-0400 Systolic blood pressure 118 mm[Hg] Ronnie Moomaw PRINTING ESTIMATOR.COMMUNITY HEALTH DIRECTOR Work Phone: [facility] 06-03-2023 12:57-0400 Body temperature 97.5 [degF] Dinora Klein PRINTING ESTIMATOR.COMMUNITY HEALTH DIRECTOR Work Phone: [facility] 06-03-2023 12:57-0400 Body weight 46.2 kg Dinora Klein PRINTING ESTIMATOR.COMMUNITY HEALTH DIRECTOR Work Phone: [facility] 06-03-2023 12:57-0400 Diastolic blood pressure 70 mm[Hg] Dinora Klein PRINTING ESTIMATOR.COMMUNITY HEALTH DIRECTOR Work Phone: [facility] 06-03-2023 12:57-0400 Heart rate 70 /min Dinora Klein PRINTING ESTIMATOR.COMMUNITY HEALTH DIRECTOR Work Phone: [facility] 06-03-2023 12:57-0400 Respiratory rate 18 /min Dinora Klein PRINTING ESTIMATOR.COMMUNITY HEALTH DIRECTOR Work Phone: [facility] 06-03-2023 12:57-0400 SaO2% (BldA) [Mass fraction] 98 % Dinora Klein PRINTING ESTIMATOR.COMMUNITY HEALTH DIRECTOR Work Phone: [facility] 06-03-2023 12:57-0400 Systolic blood pressure 125 mm[Hg] Dinora Klein PRINTING ESTIMATOR.COMMUNITY HEALTH DIRECTOR Work Phone: [facility] 12-24-2022 18:37-0400 Body temperature 98.4 [degF] Tracey Valle PRINTING ESTIMATOR.COMMUNITY HEALTH DIRECTOR Work Phone: [facility] 12-24-2022 18:37-0400 Body weight 45.81 kg Tracey Praisler-Wood PRINTING ESTIMATOR.COMMUNITY HEALTH DIRECTOR Work Phone: [facility] 12-24-2022 18:37-0400 Diastolic blood pressure 78 mm[Hg] Tracey Praisler-Wood PRINTING ESTIMATOR.COMMUNITY HEALTH DIRECTOR Work Phone: [facility] 12-24-2022 18:37-0400 Heart rate 84 /min Tracey Praisler-Wood PRINTING ESTIMATOR.COMMUNITY HEALTH DIRECTOR Work Phone: [facility] 12-24-2022 18:37-0400 Respiratory rate 18 /min Tracey Praisler-Wood PRINTING ESTIMATOR.COMMUNITY HEALTH DIRECTOR Work Phone: [facility] 12-24-2022 18:37-0400 SaO2% (BldA) [Mass fraction] 99 % Tracey Praisler-Wood PRINTING ESTIMATOR.COMMUNITY HEALTH DIRECTOR Work Phone: [facility] 12-24-2022 18:37-0400 Systolic blood pressure 126 mm[Hg] Tracey Praisler-Wood PRINTING ESTIMATOR.COMMUNITY HEALTH DIRECTOR Work Phone: [facility] 08-26-2022 14:03-0400 Body temperature 98.2 [degF] Tani Pendlebury PRINTING ESTIMATOR.COMMUNITY HEALTH DIRECTOR Work Phone: [facility] 08-26-2022 14:03-0400 Body weight 45.9 kg Tani Pendlebury PRINTING ESTIMATOR.COMMUNITY HEALTH DIRECTOR Work Phone: [facility] 08-26-2022 14:03-0400 Diastolic blood pressure 80 mm[Hg] Tani Pendlebury PRINTING ESTIMATOR.COMMUNITY HEALTH DIRECTOR Work Phone: [facility] 08-26-2022 14:03-0400 Heart rate 88 /min Tani Pendlebury PRINTING ESTIMATOR.COMMUNITY HEALTH DIRECTOR Work Phone: [facility] 08-26-2022 14:03-0400 Respiratory rate 18 /min Tani Pendlebury PRINTING ESTIMATOR.COMMUNITY HEALTH DIRECTOR Work Phone: [facility] 08-26-2022 14:03-0400 SaO2% (BldA) [Mass fraction] 96 % [facility] PRINTING ESTIMATOR.COMMUNITY HEALTH DIRECTOR Work Phone: [facility] 08-26-2022 14:03-0400 Systolic blood pressure 128 mm[Hg] [facility] PRINTING ESTIMATOR.COMMUNITY HEALTH DIRECTOR Work Phone: [facility] 08-17-2022 17:49-0400 Body temperature 98.6 [degF] [facility] PRINTING ESTIMATOR.COMMUNITY HEALTH DIRECTOR Work Phone: [facility] 08-17-2022 17:49-0400 Body weight 44.73 kg [facility] PRINTING ESTIMATOR.COMMUNITY HEALTH DIRECTOR Work Phone: [facility] 08-17-2022 17:49-0400 Diastolic blood pressure 74 mm[Hg] [facility] PRINTING ESTIMATOR.COMMUNITY HEALTH DIRECTOR Work Phone: [facility] 08-17-2022 17:49-0400 Heart rate 84 /min [facility] PRINTING ESTIMATOR.COMMUNITY HEALTH DIRECTOR Work Phone: [facility] 08-17-2022 17:49-0400 Respiratory rate 16 /min [facility] PRINTING ESTIMATOR.COMMUNITY HEALTH DIRECTOR Work Phone: [facility] 08-17-2022 17:49-0400 SaO2% (BldA) [Mass fraction] 96 % [facility] PRINTING ESTIMATOR.COMMUNITY HEALTH DIRECTOR Work Phone: [facility] 08-17-2022 17:49-0400 Systolic blood pressure 120 mm[Hg] [facility] PRINTING ESTIMATOR.COMMUNITY HEALTH DIRECTOR Work Phone: [facility] 07-16-2020 14:30-0400 Body height 157.5 cm Jessica Cano APRN COMMUNITY HEALTH DIRECTOR Work Phone: [email or web address] [facility] 07-16-2020 14:30-0400 Body mass index (BMI) [Ratio] 18.84 kg/m2 Jessica Cano APRN COMMUNITY HEALTH DIRECTOR Work Phone: [facility] 07-16-2020 14:30-0400 Body weight 46.72 kg Jessica Cano APRN COMMUNITY HEALTH DIRECTOR Work Phone: [facility] 07-16-2020 14:30-0400 Diastolic blood pressure 64 mm[Hg] Jessica Cano APRN COMMUNITY HEALTH DIRECTOR Work Phone: [facility] 07-16-2020 14:30-0400 Heart rate 71 /min Jessica Cano APRN COMMUNITY HEALTH DIRECTOR Work Phone: [facility] 07-16-2020 14:30-0400 Systolic blood pressure 118 mm[Hg] Jessica Cano APRN COMMUNITY HEALTH DIRECTOR Work Phone: [facility] Encounters Encounter Date Encounter Type Care Provider Facility Start: 11-26-2023 End: 11-27-2023 Telephone encounter Orestes Geo YEBOAH.COMMUNITY HEALTH DIRECTOR Work Phone: [facility] Comment on above: Results Start: 11-26-2023 End: 11-26-2023 Subsequent hospital visit by physician Alda [facility] Work Phone: Radiology Comment on above: Pain [R52] Start: 11-26-2023 End: 11-26-2023 ambulatory [facility] Facility:[facility] Start: 11-26-2023 End: 11-26-2023 Patient encounter procedure Orestes Geo YEBOAH.COMMUNITY HEALTH DIRECTOR Work Phone: [facility] Comment on above: Pain (Primary Dx) Start: 10-24-2023 End: 10-24-2023 [facility] Facility:[facility] Start: 10-24-2023 End: 10-24-2023 Patient encounter procedure Edna Tere PRINTING ESTIMATOR.COMMUNITY HEALTH DIRECTOR Work Phone: [facility] Comment on above: Left leg pain (Prima ry Dx) Start: 06-08-2023 End: 06-08-2023 ambulatory [facility] Facility:[facility] Start: 06-08-2023 End: 06-08-2023 Patient encounter procedure Ronnie Salmeronw PRINTING ESTIMATOR.COMMUNITY HEALTH DIRECTOR Work Phone: [facility] Comment on above: Acute cough (Primary Dx) Start: 06-03-2023 End: 06-03-2023 Subsequent hospital visit by physician Alda [facility] Work Phone: Radiology Comment on above: Pain of right upper extremity [M79.601] Start: 06-03-2023 End: 06-03-2023 [facility] Start: 06-03-2023 End: 06-03-2023 Patient encounter procedure Dinora Klein PRINTING ESTIMATOR.COMMUNITY HEALTH DIRECTOR Work Phone: [facility] Comment on above: Pain of right upper extremity (Primary Dx); Acute midline thoracic back pain; Compression fracture of L1 vertebra, initial encounter ([facility]) Start: 12-25-2022 End: 12-25-2022 [facility] Start: 12-25-2022 End: 12-25-2022 Patient encounter procedure Tracey Valle APRN.COMMUNITY HEALTH DIRECTOR Work Phone: [facility] Comment on above: Laceration of left h and without foreign body, subsequent encounter (Primary Dx) Start: 12-24-2022 End: 12-24-2022 [facility] Facility:[facility] Start: 12-24-2022 End: 12-24-2022 Patient encounter procedure Tracey Valle APRN.COMMUNITY HEALTH DIRECTOR Work Phone: [facility] Comment on above: Laceration of muscle of left hand (Primary Dx) Start: 11-23-2022 End: 11-23-2022 Patient encounter procedure Momo Gongora APRN.COMMUNITY HEALTH DIRECTOR Work Phone: [facility] Comment on [...] 08-26-2022 Subsequent hospital visit by physician Alda [facility] [place] Work Phone: Radiology Comment on above: Acute right ankle pa in [M25.571] Start: 08-26-2022 End: 08-26-2022 Office outpatient visit 15 minutes Tani Hardy APRN.COMMUNITY HEALTH DIRECTOR Work Phone: [facility] Comment on above: Acute right ankle pa in (Primary Dx); Foot injury, right, initial encounter Start: 08-17-2022 End: 08-17-2022 Subsequent hospital visit by physician Alda [facility] [place] Work Phone: Radiology Comment on above: Foot injury, right, initial encounter [S99.921A] Start: 08-17-2022 End: 08-17-2022 Office outpatient visit 15 minutes Tani Hardy APRN.COMMUNITY HEALTH DIRECTOR Work Phone: [facility] Comment on above: Foot injury, right, initial encounter (Primary Dx) Start: 08-17-2022 Telephone encounter Tani randle APRN.DEBORA Work Phone: [facility] Comment on above: Results Start: 08-05-2020 End: 08-05-2020 Subsequent hospital visit by physician Jessica Cano APRN COMMUNITY HEALTH DIRECTOR Work Phone: 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, bilateral (Primary Dx) Start: 05-05-2020 End: 05-05-2020 Patient encounter procedure ARELI CAMPBELL [facility] Start: 03-21-2020 End: 03-21-2020 Patient encounter procedure TANI PATRICK [facility] Start: 03-19-2020 End: 03-19-2020 Patient encounter procedure TIERRA KLEIN [facility] Start: 09-21-2019 End: 09-21-2019 Patient encounter [facility] Start: 08-26-2019 Patient encounter procedure VINITA GANT [facility] Start: 08-24-2019 End: 08-25-2019 Emergency department patient visit LOUIS GALEAS LIZETH [facility] Start: 06-28-2017 End: 06-28-2017 Ambulatory ARELI CAMPBELL Facility:A Start: 03-15-2017 End: 03-15-2017 Ambulatory ARELI CAMPBELL Facility:A Start: 01-26-2017 Ambulatory TIERRA MARTINEZ [facility] Start: 01-17-2017 End: 01-17-2017 Ambulatory TIERRA MARTINEZ [facility] Start: 01-14-2017 End: 01-14-2017 Ambulatory TIERRA MARTINEZ [facility] Start: 01-09-2017 End: 01-09-2017 Emergency department patient visit TIERRA MARTINEZ [facility] Start: 12-28-2016 End: 12-29-2016 Emergency department patient visit TOMA GALEAS MARIAJOSE [facility] Start: 12-07-2016 End: 12-07-2016 Emergency department patient visit MARTY MARTINEZ [facility] Start: 11-17-2016 End: 11-17-2016 Emergency department patient visit [facility] Linus [facility] Start: 11-09-2016 End: 11-09-2016 Emergency department patient visit KRISHAN Barriga [facility] Start: 09-20-2016 End: 09-20-2016 Ambulatory [facility] Facility:[facility] Start: 09-20-2016 End: 09-20-2016 Emergency department patient visit MANDY GALEAS ZEINA [facility] Start: 05-06-2015 Patient encounter status Nani Hardy PRINTING ESTIMATOR.COMMUNITY HEALTH DIRECTOR Work Phone: [facility] Work Phone: Procedures Date Procedure Procedure Detail Performing Clinician Start: 11-26-2023 Radex ribs uni w/posteroant ch minimum 3 views Orestes Hooks PRINTING ESTIMATOR.COMMUNITY HEALTH DIRECTOR Work Phone: Start: 06-03-2023 Radex forearm 2 views Benedicto Klein PRINTING ESTIMATOR.COMMUNITY HEALTH DIRECTOR Work Phone: Start: 08-26-2022 Radex ankle complete minimum 3 views Tani Hardy PRINTING ESTIMATOR.COMMUNITY HEALTH DIRECTOR Work Phone: Start: 08-17-2022 Radex foot complete minimum 3 views Tani Hardy PRINTING ESTIMATOR.DEBORA Work Phone: Plan of Treatment Date Care Activity Detail Author Start: 12-02-2032 Urine microalbumin profile DTaP,Tdap,Td Vaccine (3 - Td or Tdap) [facility] Start: 03-22-2026 Urine microalbumin profile [facility] Start: 11-13-2023 Covid-19 Vaccine ( season) Covid-19 Vaccine ( season) [facility] Start: 11-13-2023 Influenza vaccination Influenza Vacc ine (#1) [facility] Start: 03-14-2023 Advance Directive Discussion Advance Directive Discussion [facility] Start: 03-14-2023 [facility] Start: 11-12-2022 Covid-19 Vaccine ( season) Covid-19 Vaccine ( season) [facility] Start: 11-12-2022 Influenza vaccination Influenza Vacc ine (#1) [facility] Start: 03-14-2022 ADVANCE DIRECTIVE DISCUSSION ADVANCE DIRECTIVE DISCUSSION [facility] Start: 03-14-2022 DEPRESSION ASSESSMENT DEPRESSION ASS ESSMENT [facility] Start: 11-12-2020 Influenza vaccinatio n given INFLUENZA VACCINE (Season Ended) [facility] Start: 10-20-2020 End: 10-20-2020 Patient encounter procedure 10/20/2020 Appointment [facility] Sharona Brothers MD [address] [place] [id number] [phone] [facility] Start: 08-05-2020 End: 08-05-2020 Patient encounter procedure 08/05/2020 Appointment [facility] Jessica Cano APRN COMMUNITY HEALTH DIRECTOR [address] [address] [phone] [facility] [place] Start: 06-12-2019 DIABETES SCREEN DIABETES SCREEN [facility] Start: 06-12-2019 Diabetes Screening Diabetes Screenin g [facility] Start: 11-10-2017 Screening for osteoporosis Bone Density Screening [facility] Start: 02-25-2015 Shingrix Vaccine (2 of 3) Shingrix Vaccine (2 of 3) [facility] Start: 2002 Fall risk assessment FALL RISK Ge [facility] Start: 2002 Glaucoma screening GLAUCOMA/EY E EXAM AGE 65+ [facility] Start: 2002 Osteoporosis risk assessment done BONE DENSITY SCREENING [facility] Start: 1997 RSV Vaccine (1 - 1-d ose 60+ series) RSV Vaccine (1 - 1-dose 60+ series) [facility] Start: 12-01-1987 SHINGRIX VACCINE (1 of 2) SHINGRIX VACCINE (1 of 2) [facility] Start: 12-01-1987 Zoster vaccine hzv l donald for subcutaneous use ZOSTER (SHINGLES) VACCINE (1 of 2) [facility] Start: 1977 Screening mammography MAMMOGRAM [facility] Start: 12-01-1955 ANNUAL WELLNESS VISIT ANNUAL WELLNES S VISIT [facility] Start: 12-01-1955 Depression Screening Depression Scre [facility] Start: 1949 Depression screening using PHQ-9 (Patient Health Questionnaire 9) score DEPRESSION SCREENING [facility] Start: 1948 Diphtheria + pertuss is + tetanus vaccine (product) DTAP/TDAP/TD VACCINE (1 - Tdap) [facility] Start: 05-30-1938 COVID-19 VACCINE (#1) COVID-19 VACCI NE (#1) [facility] End: 08-16-2021 Venous Insufficiency Study-Bilat Lower Ext Venous Insufficiency Study-Bilat Lower Ext [facility] Routine Varicose veins of lower extremity with inflammation, bilateral 1 Occurrences starting 07/16/2020 until 08/16/2021 [facility] Comment on above: 1 Occurrences starti ng 07/16/2020 until 08/16/2021 End: 08-05-2020 Venous Insufficiency Study-Bilat Lower Ext Venous Insufficiency Study-Bilat Lower Ext Cardiac Services Routine Varicose veins of lower extremity with inflammation, bilateral 1 Occurrences starting 08/05/2020 until 08/05/2020 [facility] Comment on above: 1 Occurrences starti ng 08/05/2020 until 08/05/2020 Venous Insufficiency Study-Bilat Lower Ext Venous Insufficiency Study-Bilat Lower Ext Cardiac Services Routine Varicose veins of lower extremity with inflammation, bilateral 08/05/2020 4:10 PM EDT [facility] Immunizations Immunization Date Immunization Notes Care Provider Violette dupree 02-22-2022 influenza virus vaccine, unspecified formulation Momo Gongora PRINTING ESTIMATOR.COMMUNITY HEALTH DIRECTOR Work Phone: [facility] 01-01-2019 influenza virus vaccine, unspecified formulation Jessica Cano PRINTING ESTIMATOR COMMUNITY HEALTH DIRECTOR Work Phone: [facility] 03-22-2016 tetanus toxoid, redu laura diphtheria toxoid, and acellular pertussis vaccine, adsorbed Tani Pendlebury PRINTING ESTIMATOR.COMMUNITY HEALTH DIRECTOR Work Phone: [facility] 05-06-2015 pneumococcal conjuga te vaccine, 13 valent Tani Pendlebury PRINTING ESTIMATOR.COMMUNITY HEALTH DIRECTOR Work Phone: [facility] Work Phone: 12-18-2014 influenza, high dose seasonal, preservative-free Tani Pendlebury PRINTING ESTIMATOR.COMMUNITY HEALTH DIRECTOR Work Phone: [facility] 01-08-2014 influenza, seasonal, injectable Tani Pendlebury PRINTING ESTIMATOR.COMMUNITY HEALTH DIRECTOR Work Phone: [facility] 01-04-2013 influenza virus vaccine, unspecified formulation Tani Pendlebury PRINTING ESTIMATOR.COMMUNITY HEALTH DIRECTOR Work Phone: [facility] 12-27-2011 influenza virus vaccine, unspecified formulation Tani Pendlebury PRINTING ESTIMATOR.COMMUNITY HEALTH DIRECTOR Work Phone: [facility] 01-22-2010 influenza virus vaccine, unspecified formulation Tani Pendlebury PRINTING ESTIMATOR.COMMUNITY HEALTH DIRECTOR Work Phone: [facility] 12-14-2008 influenza virus vaccine, unspecified formulation Tani Pendlebury PRINTING ESTIMATOR.COMMUNITY HEALTH DIRECTOR Work Phone: [facility] Work Phone: 01-18-2008 influenza virus vaccine, unspecified formulation Tani Pendlebury PRINTING ESTIMATOR.COMMUNITY HEALTH DIRECTOR Work Phone: [facility] Work Phone: 01-23-2007 influenza virus vaccine, unspecified formulation [facility] PRINTING ESTIMATOR.COMMUNITY HEALTH DIRECTOR Work Phone: [facility] Work Phone: 01-11-2006 influenza virus vaccine, unspecified formulation Tani Dumontli PRINTING ESTIMATOR.COMMUNITY HEALTH DIRECTOR Work Phone: [facility] 02-09-2005 influenza virus vaccine, unspecified formulation Tanimiriam Dumontli PRINTING ESTIMATOR.COMMUNITY HEALTH DIRECTOR Work Phone: [facility] Work Phone: 02-09-2005 pneumococcal polysaccharide vaccine, 23 valent [facility] PRINTING ESTIMATOR.COMMUNITY HEALTH DIRECTOR Work Phone: [facility] Work Phone: 07-12-2004 tetanus and diphther ia toxoids, not adsorbed, for adult use Tanimiriam Dumontli PRINTING ESTIMATOR.COMMUNITY HEALTH DIRECTOR Work Phone: [facility] Work Phone: Payers Date Payer Category Payer Medicare ANTHEM MEDICARE ADVANTAGE ANTHEM HMO MEDICARE SR ADVANTAGE [id number] 2020-[facility] [phone] [address] [address] [place] [address] Medicare [id number] 2020 Unknown [id number] 2020 Medicare [id number] 2016 Unknown [id number] 2016 Medicare [id number] 1937 Unknown [id number] 1 1937 Unknown [id number] 1 1937 Unknown [id number] 1 1937 Unknown [id number] 1 1937 Unknown [id number] 1 1937 Unknown [id number] 1 1937 Unknown [id number] 1 Medicare [id number] Social History Date Type Detail Facility Start: 07-16-2020 Tobacco smoking stat us KSIS Never smoker [facility] Start: 07-16-2020 End: 08-17-2022 Tobacco use and exposure Never used [facility] Start: 07-16-2020 Alcohol intake Lifetime non-d andrey (finding) [facility] Start: 07-16-2020 History SDOH Alcohol Frequency 1 [facility] Start: 1935 Sex Assigned At Not on file G [facility] Start: 08-17-2022 End: 11-26-2023 Tobacco smoking status NHIS Ex-smoker [facility] Work Phone: History of tobacco use Current smoker [facility] Work Phone: History of tobacco use Cigarette Smoker C [facility] Work Phone: Start: 02-19-2020 End: 08-17-2022 Cigarettes smoked current (pack per day) - Reported 0.5 [facility] Start: 08-17-2022 End: 08-26-2022 Alcohol intake Current non-drinker of alcohol (finding) [facility] Start: 08-17-2022 Tobacco Comment quit 1992 [facility] Start: 02-19-2020 End: 11-23-2022 Tobacco use panel [facility] National Score (1-10 0), lower number is lower risk 70 [facility] Clinical Notes 11-25-2010 to 11-27-2023 Telephone Encounter - Kathie Francisco MA - 11/27/2023 9:14 AM EDTTelephone Encounter - Kathie Francisco MA - 11/27/2023 9:14 AM EDTTelephone Encounter - Kathie Francisco MA - 11/26/2023 2:45 PM EDT Note Date & Type Note Facility 11-27-2023 Telephone encounter Note notified pt. Kathie Francisco MA [facility] 11-27-2023 Miscellaneous Notes notified pt. Kathie Francisco MA Left message for patient to return call. Kathie Francisco MA Please call and let her know that xray was negative. Thank you documented in this encounter [facility] 11-26-2023 Telephone encounter Note Left message for patient to return call. Kathie Francisco MA [facility] 11-26-2023 Telephone encounter Note Please call and let her know that xray was negative. Thank you [facility] Work Phone: 11-26-2023 History of Present [...] PATIENT PRESENTS WITH AN IMPLANTABLE OR ATTACHED EXTRACTOR LOADER AND UNLOADER: No RADIOLOGY DEPARTMENT: General X-ray: Exam(s) Completed: Rib X-Ray: Right PERIPHERAL IV DATA: Not applicable SIGNED BY: HINA Villar) November 26, 2023 12:00 PM documented in this encounter [facility] 11-26-2023 Note HNO ID: [id number] Author: NANETTE NGUYEN RT (R) Service: Radiology [...] PATIENT PRESENTS WITH AN IMPLANTABLE OR ATTACHED EXTRACTOR LOADER AND UNLOADER: No RADIOLOGY DEPARTMENT: General X-ray: Exam(s) Completed: Rib X-Ray: Right PERIPHERAL IV DATA: Not applicable SIGNED BY: RT Aurea(Philip) November 26, 2023 12:00 PM [facility] 11-26-2023 Note HNO ID: [id number] Author: ORESTES HOOKS APRN.COMMUNITY HEALTH DIRECTOR Service: ? Author Type: Nurse Practitioner Type: [...] history is provided by the patient. No flight communications specialist was used. Review of Systems Constitutional: Negative. [...] SURGICAL HISTORY OF bile duct surg @ [place] PAST SURGICAL HISTORY OF 03/2015 had vein [...] Tape (Rosins), Estradiol, Fleet Phospho-Soda Accu-Prep [Sodium Eyihfevtcv-Outfag-Cft], Hydroxyzine, Novocain [Procaine Hcl], Nsaids (Non-Steroidal Anti-Inflammatory [...] mouth once daily. (more content not included)... [facility] 11-26-2023 History of Present illness Narrative [...] history is provided by the patient. No flight communications specialist was used. Review of Systems Constitutional: Negative. [...] SURGICAL HISTORY OF bile duct surg @ [place] PAST SURGICAL HISTORY OF 03/2015 had vein [...] Tape (Rosins), Estradiol, Fleet Phospho-Soda Accu-Prep [Sodium Mujvkfzpki-Djxzyc-Tye], Hydroxyzine, Novocain [Procaine Hcl], Nsaids (Non-Steroidal Anti-Inflammatory [...] (FLONASE) 50 mcg/actuation nasal spray Use 1 [place] in each nostril once daily. 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 Metal Shaping Machine Operator: IBETH Transcribe Date/Time: Nov 26 2023 2:13P Dictated by : COLLIN ARRIAGA MD Rest and follow up with pcp in a week if not improved. Orestes Hooks APRN.COMMUNITY HEALTH DIRECTOR documented in this encounter [facility] 10-24-2023 Note HNO ID: [id number] Author: EDNA CARRANZA APRN.CNP Service: ? Author [...] no longer on eliquis. She was in [place] ED, and left due to wait. I advised that this time in day I could not get an US here in [place], and offered to check in [place], that to see her here in [facility] care I would need same day results. Patient declined visit and to go to [place], and will go back to [place] ED There were no vitals taken for [...] have confirmed and edited as necessary, the [facility] ASSESSMENT/PLAN: 1. Left leg pain - ICD9: [...] detail warranting prompt ER evaluation. Edna Carranza APRN.[facility] 10-24-2023 History of Present illness Narrative Triage Note: HPI Esther Hill is a 87 year old female who presents today for CC of concern for blood clot in leg. She has a h/o of a DVT and has taken eliquis. Pain is the same as when she had a blood clot. She is no longer on eliquis. She was in [place] ED, and left due to wait. I advised that this time in day I could not get an US here in [place], and offered to check in [place], that to see her here in [facility] I would need same day results. Patient declined visit and to go to [place], and will go back to [place] ED There were no vitals taken for [...] have confirmed and edited as necessary, the [facility] ASSESSMENT/PLAN: 1. Left leg pain - ICD9: [...] Edna Carranza APRN.DEBORA documented in this encounter [facility] 06-08-2023 Instructions Ronnie Vidal APRN.CNP - [...] by coughs, sneezes, and direct contact, especially xaoj-pi-nnat. A respiratory tract infection usually clears up [...] F (39 C). documented in this encounter [facility] 06-08-2023 Note HNO ID: [id number] Author: RONNIE VIDAL APRN.COMMUNITY HEALTH DIRECTOR Service: ? Author Type: Nurse Practitioner Type: Progress Notes Filed: 06/08/2023 10:33 Note Text: This note was created using [employer]. Subjective Esther Hill is a 87 year [...] needed. Patient comfortable with plan. Ronnie Vidal APRN.COMMUNITY HEALTH DIRECTOR [facility] 06-08-2023 History of Present illness Narrative This note was created using [employer]. Subjective Esther Hill is a 87 year [...] Ronnie Vidal APRN.CNP documented in this encounter [facility] 06-03-2023 History of Present illness Narrative [...] PATIENT PRESENTS WITH AN IMPLANTABLE OR ATTACHED EXTRACTOR LOADER AND UNLOADER: No RADIOLOGY DEPARTMENT: General X-ray: Exam(s) Completed: Spine X-Ray(s): Thoracic Upper Extremity X-Ray(s): Humerus, right and Forearm, right PERIPHERAL IV DATA: Not applicable SIGNED BY: RT Freddy(R) June 03, 2023 1:25 PM documented in this encounter [facility] 06-03-2023 Note HNO ID: [id number] Author: ROSENDO SHAY RT(Philip) Service: Radiology Author [...] PATIENT PRESENTS WITH AN IMPLANTABLE OR ATTACHED EXTRACTOR LOADER AND UNLOADER: No RADIOLOGY DEPARTMENT: General X-ray: Exam(s) Completed: Spine X-Ray(s): Thoracic Upper Extremity X-Ray(s): Humerus, right and Forearm, right PERIPHERAL IV DATA: Not applicable SIGNED BY: RT Freddy(R) June 03, 2023 1:25 PM [facility] 06-03-2023 Note HNO ID: [id number] Author: DINORA KLEIN APRN.COMMUNITY HEALTH DIRECTOR Service: ? Author Type: Nurse Practitioner Type: [...] SURGICAL HISTORY OF bile duct surg @ [place] PAST SURGICAL HISTORY OF 03/2015 had vein [...] Tape (Rosins), Estradiol, Fleet Phospho-Soda Accu-Prep [Sodium Uvwcizogie-Ewhhsd-Hpx], Hydroxyzine, Novocain [Procaine Hcl], Nsaids (Non-Steroidal Anti-Inflammatory [...] (PROBIOTIC, B. C (more content not included)... [facility] 06-03-2023 History of Present illness Narrative [...] SURGICAL HISTORY OF bile duct surg @ [place] PAST SURGICAL HISTORY OF 03/2015 had vein [...] Tape (Rosins), Estradiol, Fleet Phospho-Soda Accu-Prep [Sodium Cziipjgubr-Nhgkuh-Yhx], Hydroxyzine, Novocain [Procaine Hcl], Nsaids (Non-Steroidal Anti-Inflammatory [...] (FLONASE) 50 mcg/actuation nasal spray Use 1 [place] in each nostril once daily. Cholecalciferol, Vitamin [...] Compression fracture of L1 vertebra, initial encounter ([facility]) - ICD9: 805.4, ICD10: S32.010A - XR THORACIC LIMITED 2V AP/LAT- Compression fracture of the vertebral body of L1 has developed since the prior study - Rest and OTC analgesia PRN - Follow-up with PCP in one week Juana Zhong TEACHING PROVIDER (Physician/PA/PRINTING ESTIMATOR) NOTE OF PERSONAL INVOLVEMENT IN CARE: I have personally seen and examined the patient and performed the medical decision-making components. I have reviewed the Advanced Practice Registered Nurse (PRINTING ESTIMATOR) Student's documentation and verified the findings in the note as written. Any additions or changes are noted in bold/italics. Signature: Dinora Klein Date: 06/03/2023 Time: 2:52 PM documented in this encounter [facility] 12-25-2022 Instructions Tracey Valle APRN.CNP - [...] which would likely bleed also. Tracey Valle APRN.COMMUNITY HEALTH DIRECTOR documented in this encounter [facility] 12-25-2022 Note HNO ID: [id number] Author: Tracey Valle APRN.COMMUNITY HEALTH DIRECTOR Service: ? Author Type: Nurse Practitioner Type: [...] SURGICAL HISTORY OF bile duct surg @ [place] PAST SURGICAL HISTORY OF 03/2015 had vein [...] Tape (Rosins), Estradiol, Fleet Phospho-Soda Accu-Prep [Sodium Bbslkutwgl-Xtumcf-Vuw], Hydroxyzine, Novocain [Procaine Hcl], Nsaids (Non-Steroidal Anti-Inflammatory [...] (FLONASE) 50 mcg/actuation nasal spray Use 1 [place] in each nostril once daily. ONE DAILY MULTIVITAMIN ORAL Take by mouth once daily. vitamins oxyCODONE-acetaminophen (PERCOCET) 5-325 mg tablet Take 1 tablet by mouth every 4 hours as needed. Potassium 99 mg tab Take 1 tablet by mouth as needed. vit calc,iron,folic ( #2 ORAL) Joseluis (more content not included)... [facility] 12-25-2022 History of Present illness Narrative [...] SURGICAL HISTORY OF bile duct surg @ [place] PAST SURGICAL HISTORY OF 03/2015 had vein [...] Tape (Rosins), Estradiol, Fleet Phospho-Soda Accu-Prep [Sodium Sbeokyswcv-Buzjkc-Xax], Hydroxyzine, Novocain [Procaine Hcl], Nsaids (Non-Steroidal Anti-Inflammatory [...] (FLONASE) 50 mcg/actuation nasal spray Use 1 [place] in each nostril once daily. ONE DAILY [...] Tracey Valle APRN.DEBORA documented in this encounter [facility] 12-24-2022 Instructions Tracey Valle APRN.CNP - [...] Tracey Valle APRN.CNP documented in this encounter [facility] 12-24-2022 Note HNO ID: [id number] Author: Tracey Valle APRN.CNP Service: ? Author [...] SURGICAL HISTORY OF bile duct surg @ [place] PAST SURGICAL HISTORY OF 03/2015 had vein [...] Tape (Rosins), Estradiol, Fleet Phospho-Soda Accu-Prep [Sodium Llfvmmwcpy-Hzpzfj-Vzu], Hydroxyzine, Novocain [Procaine Hcl], Nsaids (Non-Steroidal Anti-Inflammatory [...] (FLONASE) 50 mcg/actuation nasal spray Use 1 [place] in each nostril once daily. ONE DAILY MULTIVITAMIN ORAL Take by mouth once daily. vitamins oxyCODONE-acetaminophen (PERCOCET) 5-325 mg tablet Take 1 tablet by mouth every 4 hours as needed (more content not included)... [facility] 12-24-2022 History of Present illness Narrative [...] SURGICAL HISTORY OF bile duct surg @ [place] PAST SURGICAL HISTORY OF 03/2015 had vein [...] Tape (Rosins), Estradiol, Fleet Phospho-Soda Accu-Prep [Sodium Klddqnqfga-Xaifhv-Rch], Hydroxyzine, Novocain [Procaine Hcl], Nsaids (Non-Steroidal Anti-Inflammatory [...] (FLONASE) 50 mcg/actuation nasal spray Use 1 [place] in each nostril once daily. ONE DAILY [...] medical evaluation if any occur. Tracey Valle APRN.COMMUNITY HEALTH DIRECTOR documented in this encounter [facility] 11-23-2022 History of Present illness Narrative Patient triaged at [facility]. Here today with fall 1 hour ago, hit head, left shoulder/elbow/hand hurts. Right hand bleeding. I will refer to ER. Family to drive pov to [facility] ER. documented in this encounter [facility] 08-31-2022 Instructions Mandy Olsen - 08/31/2022 9:42 AM EDT Recommend lace up tennis shoe, ie ministerio or maral Recommend placing foot in cold water bath tub x 10 minutes twice daily Rest your foot for the next 1-2 weeks and your pain should improve. documented in this encounter [facility] 08-31-2022 History of Present illness Narrative [...] (FLONASE) 50 mcg/actuation nasal spray Use 1 [place] in each nostril once daily. Cholecalciferol, Vitamin [...] SURGICAL HISTORY OF bile duct surg @ [place] PAST SURGICAL HISTORY OF 03/2015 had vein [...] Olsen DPM Podiatry [address] [facility] [address] Dept: [phone] Dept Patient presents here today for right ankle pain and injury. Patient states that she isn't in pain at the moment but was hurting this morning. States she went to the urgent care and they told her to stay off it and taped her toes. He recommended she come here. Patient states she hurt it a few weeks ago. documented in this encounter [facility] 08-26-2022 History of Present illness Narrative [...] SURGICAL HISTORY OF bile duct surg @ [place] PAST SURGICAL HISTORY OF 03/2015 had vein [...] Tape (Rosins), Estradiol, Fleet Phospho-Soda Accu-Prep [Sodium Moxfovaaul-Nfpqcz-Ahq], Hydroxyzine, Novocain [Procaine Hcl], Nsaids (Non-Steroidal Anti-Inflammatory [...] (FLONASE) 50 mcg/actuation nasal spray Use 1 [place] in each nostril once daily. cyanocobalamin, vitamin [...] of care. This note was generated using TimeCast software. It may contain errors in wording, punctuation, or spelling. Tani Hardy APRN.DEBORA documented in this encounter [facility] 08-18-2022 Miscellaneous Notes Pt daughter called [...] Tani Hardy APRN.CNP documented in this encounter [facility] 08-17-2022 History of Present illness Narrative [...] 2022 5:59 PM documented in this encounter [facility] 08-17-2022 History of Present illness Narrative [...] SURGICAL HISTORY OF bile duct surg @ [place] PAST SURGICAL HISTORY OF 03/2015 had vein [...] Tape (Rosins), Estradiol, Fleet Phospho-Soda Accu-Prep [Sodium Anbuqthzmr-Qahnej-Ztt], Hydroxyzine, Novocain [Procaine Hcl], Nsaids (Non-Steroidal Anti-Inflammatory [...] (FLONASE) 50 mcg/actuation nasal spray Use 1 [place] in each nostril once daily. (Patient not [...] of care. This note was generated using TimeCast software. It may contain errors in wording, punctuation, or spelling. Tani Hardy APRN.DEBORA documented in this encounter [facility] 07-16-2020 History of Present illness Narrative CVI HISTORY 1. Have you ever had vein stripping surgery? (If yes, when and which leg?) Yes Dr. Howell at [facility] 2. Have you ever had vein [...] you diagnosed with saphenous vein reflux? No [facility] CONSULT NOTE 07/16/2020 Chief [...] had stripping done many years ago at [facility]. Reports that he didn't finish the [...] provider on file. documented in this encounter [facility] 07-16-2020 Miscellaneous Notes Encounter addended by: Kathie Johansen RN on: 07/16/2020 3:11 PM Actions taken: Edited Discharge Instructions documented in this encounter [facility] 07-16-2020 Hospital Discharge instructions Kathie Johansen RN - 07/16/2020 Do not wear compression the day of your venous scan. We will call you with results. documented in this encounter [facility] 11-25-2010 History of Past i llness Narrative Problem Noted Date Resolved Date NO SHOW 11/25/2010 09/07/2013 Abdominal pain, right lower quadrant 09/11/2008 08/24/2011 DIVERTICULITIS COLON - NO HEMORRHAGE 07/29/2008 09/21/2013 Diverticulosis of colon (without mention of hemo rrhage) 09/21/2013 Overview: Acute Episode Diverticulitis - 07/15/08 documented as of this encounter (statuses as of 08/18/2022) [facility] History of Past illness Narrative* Problem Noted Date Resolved Date NO SHOW 11/25/2010 09/07/2013 Abdominal pain, right lower quadrant 09/11/2008 08/24/2011 DIVERTICULITIS COLON - NO HEMORRHAGE 07/29/2008 09/21/2013 Diverticulosis of colon (without mention of hemo rrhage) 09/21/2013 Overview: Acute Episode Diverticulitis - 07/15/08 documented as of this encounter (statuses as of 08/19/2022) [facility] History of Past illness Narrative* Problem Noted Date Resolved Date NO SHOW 11/25/2010 09/07/2013 Abdominal pain, right lower quadrant 09/11/2008 08/24/2011 DIVERTICULITIS COLON - NO HEMORRHAGE 07/29/2008 09/21/2013 Diverticulosis of colon (without mention of hemo rrhage) 09/21/2013 Overview: Acute Episode Diverticulitis - 07/15/08 documented as of this encounter (statuses as of 08/27/2022) [facility] History of Past illness Narrative* Problem Noted Date Resolved Date NO SHOW 11/25/2010 09/07/2013 Abdominal pain, right lower quadrant 09/11/2008 08/24/2011 DIVERTICULITIS COLON - NO HEMORRHAGE 07/29/2008 09/21/2013 Diverticulosis of colon (without mention of hemo rrhage) 09/21/2013 Overview: Acute Episode Diverticulitis - 07/15/08 documented as of this encounter (statuses as of 08/31/2022) [facility] History of Past [facility] Narrative* Problem Noted Date Diagnosed Date Resolved Date NO SHOW 11/25/2010 09/07/2013 Abdominal pain, right lower quadrant 09/11/2008 08/24/2011 DIVERTICULITIS COLON - NO HEMORRHAGE 07/29/2008 09/21/2013 Diverticulosis of colon (wit hout mention of hemorrhage) 09/21/2013 Overview: Acute Episode Diverticulitis - 07/15/08 documented as of this encounter (statuses as of 11/24/2022) [facility] History of Past [facility] Narrative* Problem Noted Date Diagnosed Date Resolved Date NO SHOW 11/25/2010 09/07/2013 Abdominal pain, right lower quadrant 09/11/2008 08/24/2011 DIVERTICULITIS COLON - NO HEMORRHAGE 07/29/2008 09/21/2013 Diverticulosis of colon (wit hout mention of hemorrhage) 09/21/2013 Overview: Acute Episode Diverticulitis - 07/15/08 documented as of this encounter (statuses as of 12/25/2022) [facility] History of Past [facility] Narrative* Problem Noted Date Diagnosed Date Resolved Date NO SHOW 11/25/2010 09/07/2013 Abdominal pain, right lower quadrant 09/11/2008 08/24/2011 DIVERTICULITIS COLON - NO HEMORRHAGE 07/29/2008 09/21/2013 Diverticulosis of colon (wit hout mention of hemorrhage) 09/21/2013 Overview: Acute Episode Diverticulitis - 07/15/08 documented as of this encounter (statuses as of 12/25/2022) [facility] History of Past [facility] Narrative* Problem Noted Date Diagnosed Date Resolved Date NO SHOW 11/25/2010 09/07/2013 Abdominal pain, right lower quadrant 09/11/2008 08/24/2011 DIVERTICULITIS COLON - NO HEMORRHAGE 07/29/2008 09/21/2013 Diverticulosis of colon (wit hout mention of hemorrhage) 09/21/2013 Overview: Acute Episode Diverticulitis - 07/15/08 documented as of this encounter (statuses as of 06/03/2023) [facility] History of Past [facility] Narrative* Problem Noted Date Diagnosed Date Resolved Date NO SHOW 11/25/2010 09/07/2013 Abdominal pain, right lower quadrant 09/11/2008 08/24/2011 DIVERTICULITIS COLON - NO HEMORRHAGE 07/29/2008 09/21/2013 Diverticulosis of colon (wit hout mention of hemorrhage) 09/21/2013 Overview: Acute Episode Diverticulitis - 07/15/08 documented as of this encounter (statuses as of 06/09/2023) [facility] note* Diagnosis Varicose veins of lower extremity with inflammation, bilateral- Primary documented in this encounter [facility] note* Diagnosis Varicose veins of lower extremity with inflammation, bilateral documented in this encounter [facility] note* Diagnosis Foot injury, right, initial encounter- Primary documented in this encounter [facility] note* Diagnosis Acute right ankle pain- Primary Foot injury, right, initial encounter documented in this encounter [facility] note* Diagnosis Contusion of foot, unspecified laterality, initial encounter- Primary Acute right ankle pain Foot injury, right, initial encounter Peripheral vascular disease (HCC) Peripheral vascular disease, unspecified Nutritional marasmus (HCC) Nutritional marasmus documented in this encounter [facility] note* Diagnosis Injury of head, initial encounter- Primary documented in this encounter [facility] note* Diagnosis Laceration of muscle of left hand- Primary [facility] Diagnosis Laceration of left hand without foreign body, subsequent encounter- Primary documented in this encounter [facility] note* Diagnosis Pain of right upper extremity- Primary Acute midline thoracic back pain Compression fracture of L1 vertebra, initial encounter ([facility]) documented in this encounter [facility] note* Diagnosis Acute cough- Primary documented in this encounter [facility] note* Diagnosis Left leg pain- Primary Pain in limb documented in this encounter [facility] note* Diagnosis Pain of right upper extremity Acute midline thoracic back pain documented in this encounter [facility] note* Diagnosis Pain- Primary Generalized pain Pain Generalized pain documented in this encounter [facility] note* Diagnosis Pain Generalized pain documented in this encounter [facility] note* Diagnosis Acute right ankle pain Foot injury, right, initial encounter documented in this encounter [facility] note* Diagnosis Foot injury, right, initial encounter documented in this encounter [facility] for referral (narrative)* Procedure Authorization (Routine) Status Reason Specialty Diagnoses / Procedures Referred By Contact Referred To Contact Incomplete Heart and Vascul ar Diagnostics Diagnoses Varicose veins of lower extremity with inflammation, bilateral Procedures Venous Insufficiency Study-Bilat Lower Ext Jessica Cano APRN COMMUNITY HEALTH DIRECTOR [address] [place] [address] Electronically signed by Jessica Cano APRN, CNP at [facility] for referral (narrative)* Procedure Authorization (Routine) Status Reason Specialty Diagnoses / Procedures Referred By Contact Referred To Contact Closed Heart and Vascul ar Diagnostics Diagnoses Varicose veins of lower extremity with inflammation, bilateral Procedures Venous Insufficiency Study-Bilat Lower Ext Jessica Cano APRN CNP [address] [place] [address] Electronically signed by Jessica Cano APRN, CNP at [facility] for referral (narrative)* Diagnostic Procedure Only (Urgent) - Closed Specialty Diagnoses / Procedures Referred By Contac t Referred To Contact XR IMAGING Diagnoses Foot injury, right, initial encounter Procedures XR FOOT GENERAL 3V AP/LAT/OBL RIGHT RADEX FOOT COMPLETE MINIMUM 3 VIEWS Tani Hardy APRN.COMMUNITY HEALTH DIRECTOR [address] [place] [address] Xr Imaging Referral ID Status Reason Start Date Expiration Date V isits Requested Visits Authorized [id number] Closed Auto-Generate d Referral 08/17/2022 09/16/2023 1 1 [facility] for referral (narrative)* Diagnostic Procedure Only (Urgent) - Closed Specialty Diagnoses / Procedures Referred By Contac t Referred To Contact XR IMAGING Diagnoses Acute midline thoracic back pain Procedures XR THORACIC LIMITED 2V AP/LAT RADEX SPINE THORACIC 2 VIEWS Dinora Klein APRN.COMMUNITY HEALTH DIRECTOR [address] [place] [address] [place] [address] Referral ID Status Reason Start Date Expiration Date V isits Requested Visits Authorized [id number] Closed Auto-Generate d Referral 06/03/2023 07/02/2024 1 1 * Diagnostic Procedure Only (Urgent) - Closed Specialty Diagnoses / Procedures Referred By Contac t Referred To Contact XR IMAGING Diagnoses Pain of right upper extremity Procedures XR FOREARM GENERAL 2V AP/LAT RIGHT RADEX FOREARM 2 VIEWS Dinora Klein APRN.COMMUNITY HEALTH DIRECTOR [address] [place] [address] [place] [address] Referral ID Status Reason Start Date Expiration Date V isits Requested Visits Authorized [id number] Closed Auto-Generate d Referral 06/03/2023 07/02/2024 1 1 * Diagnostic Procedure Only (Urgent) - Closed Specialty Diagnoses / Procedures Referred By Contac t Referred To Contact XR IMAGING Diagnoses Pain of right upper extremity Procedures XR HUMERUS 2V AP/LAT RIGHT RADEX HUMERUS MINIMUM 2 VIEWS Dinora Klein APRN.COMMUNITY HEALTH DIRECTOR [address] [place] [address] [place] [address] Referral ID Status Reason Start Date Expiration Date V isits Requested Visits Authorized [id number] Closed Auto-Generate d Referral 06/03/2023 07/02/2024 1 1 [facility] for referral (narrative)* Diagnostic Procedure Only (Urgent) - Closed Specialty Diagnoses / Procedures Referred By Contac t Referred To Contact XR IMAGING Diagnoses Acute midline thoracic back pain Procedures XR THORACIC LIMITED 2V AP/LAT RADEX SPINE THORACIC 2 VIEWS Dinora Klein APRN.COMMUNITY HEALTH DIRECTOR [address] [place] [address] [place] [address] Referral ID Status Reason Start Date Expiration Date V isits Requested Visits Authorized [id number] Closed Auto-Generate d Referral 06/03/2023 07/02/2024 1 1 * Diagnostic Procedure Only (Urgent) - Closed Specialty Diagnoses / Procedures Referred By Contac t Referred To Contact XR IMAGING Diagnoses Pain of right upper extremity Procedures XR FOREARM GENERAL 2V AP/LAT RIGHT RADEX FOREARM 2 VIEWS Dinora Klein APRN.COMMUNITY HEALTH DIRECTOR [address] [place] [address] [place] [address] Referral ID Status Reason Start Date Expiration Date V isits Requested Visits Authorized [id number] Closed Auto-Generate d Referral 06/03/2023 07/02/2024 1 1 * Diagnostic Procedure Only (Urgent) - Closed Specialty Diagnoses / Procedures Referred By Contac t Referred To Contact XR IMAGING Diagnoses Pain of right upper extremity Procedures XR HUMERUS 2V AP/LAT RIGHT RADEX HUMERUS MINIMUM 2 VIEWS Dinora Klein APRN.COMMUNITY HEALTH DIRECTOR [address] [place] [address] [place] [address] Referral ID Status Reason Start Date Expiration Date V isits Requested Visits Authorized [id number] Closed Auto-Generate d Referral 06/03/2023 07/02/2024 1 1 [facility] for referral (narrative)* Diagnostic Procedure Only (Urgent) - Closed Specialty Diagnoses / Procedures Referred By Contac t Referred To Contact XR IMAGING Diagnoses Pain Procedures XR RIBS/CHEST 3V AP RIB/OBLS/CXR RIGHT RADEX RIBS UNI W/POSTEROANT CH MINIMUM 3 VIEWS Orestes Hooks APRN.COMMUNITY HEALTH DIRECTOR [address] [place] [address] [place] [address] Referral ID Status Reason Start Date Expiration Date V isits Requested Visits Authorized [id number] Closed Auto-Generate d Referral 11/26/2023 12/25/2024 1 1 [facility] for referral (narrative)* Diagnostic Procedure Only (Urgent) - Closed Specialty Diagnoses / Procedures Referred By Contac t Referred To Contact XR IMAGING Diagnoses Pain Procedures XR RIBS/CHEST 3V AP RIB/OBLS/CXR RIGHT RADEX RIBS UNI W/POSTEROANT CH MINIMUM 3 VIEWS Orestes Hooks APRN.COMMUNITY HEALTH DIRECTOR [address] [place] [address] [place] [address] Referral ID Status Reason Start Date Expiration Date V isits Requested Visits Authorized [id number] Closed Auto-Generate d Referral 11/26/2023 12/25/2024 1 1 [facility] for referral (narrative)* Diagnostic Procedure Only (Urgent) - Closed Specialty Diagnoses / Procedures Referred By Contac t Referred To Contact XR IMAGING Diagnoses Acute right ankle pain Foot injury, right, initial encounter Procedures XR FOOT GENERAL 3V AP/LAT/OBL RIGHT RADEX FOOT COMPLETE MINIMUM 3 VIEWS Tani Hardy APRN.COMMUNITY HEALTH DIRECTOR [address] [place] [address] [place] [address] Referral ID Status Reason Start Date Expiration Date V isits Requested Visits Authorized [id number] Closed Auto-Generate d Referral 08/26/2022 09/25/2023 1 1 * Diagnostic Procedure Only (Urgent) - Closed Specialty Diagnoses / Procedures Referred By Contac t Referred To Contact XR IMAGING Diagnoses Acute right ankle pain Procedures XR ANKLE GENERAL 3V AP/LAT/OBL RIGHT RADEX ANKLE COMPLETE MINIMUM 3 VIEWS Tani Hardy APRN.COMMUNITY HEALTH DIRECTOR [address] [place] [address] [place] [address] Referral ID Status Reason Start Date Expiration Date V isits Requested Visits Authorized [id number] Closed Auto-Generate d Referral 08/26/2022 09/25/2023 1 1 [facility] for referral (narrative)* Diagnostic Procedure Only (Urgent) - Closed Specialty Diagnoses / Procedures Referred By Contac t Referred To Contact XR IMAGING Diagnoses Foot injury, right, initial encounter Procedures XR FOOT GENERAL 3V AP/LAT/OBL RIGHT RADEX FOOT COMPLETE MINIMUM 3 VIEWS Tani Hardy, PRINTING ESTIMATOR.COMMUNITY HEALTH DIRECTOR [address] [place] [address] [place] [address] Referral ID Status Reason Start Date Expiration Date V isits Requested Visits Authorized [id number] Closed Auto-Generate d Referral 08/17/2022 09/16/2023 1 1 [facility] for visit Narrative* Procedure Authorization (Routine) Status Reason Specialty Diagnoses / Procedures Referred By Contact Referred To Contact Closed Heart and Vascul ar Diagnostics Diagnoses Varicose veins of lower extremity with inflammation, bilateral Procedures Venous Insufficiency Study-Bilat Lower Ext Jessica Cano APRN COMMUNITY HEALTH DIRECTOR [address] [address] [facility] for visit Narrative* Diagnostic Procedure Only (Urgent) - Closed Specialty Diagnoses / Procedures Referred By Contac t Referred To Contact XR IMAGING Diagnoses Acute midline thoracic back pain Procedures XR THORACIC LIMITED 2V AP/LAT RADEX SPINE THORACIC 2 VIEWS Dinora Klein, PRINTING ESTIMATOR.COMMUNITY HEALTH DIRECTOR [address] [place] [address] [place] [address] Referral ID Status Reason Start Date Expiration Date V isits Requested Visits Authorized [id number] Closed Auto-Generate d Referral 06/03/2023 07/02/2024 1 1 [facility] for visit Narrative* Diagnostic Procedure Only (Urgent) - Closed Specialty Diagnoses / Procedures Referred By Contac t Referred To Contact XR IMAGING Diagnoses Pain Procedures XR RIBS/CHEST 3V AP RIB/OBLS/CXR RIGHT RADEX RIBS UNI W/POSTEROANT CH MINIMUM 3 VIEWS Orestes Hooks, PRINTING ESTIMATOR.COMMUNITY HEALTH DIRECTOR [address] [place] [address] [place] [address] Referral ID Status Reason Start Date Expiration Date V isits Requested Visits Authorized [id number] Closed Auto-Generate d Referral 11/26/2023 12/25/2024 1 1 [facility] for visit Narrative* Diagnostic Procedure Only (Urgent) - Closed Specialty Diagnoses / Procedures Referred By Contac t Referred To Contact XR IMAGING Diagnoses Acute right ankle pain Foot injury, right, initial encounter Procedures XR FOOT GENERAL 3V AP/LAT/OBL RIGHT RADEX FOOT COMPLETE MINIMUM 3 VIEWS Tani Hardy, PRINTING ESTIMATOR.COMMUNITY HEALTH DIRECTOR [address] [place] [address] [place] [address] Referral ID Status Reason Start Date Expiration Date V isits Requested Visits Authorized [id number] Closed Auto-Generate d Referral 08/26/2022 09/25/2023 1 1 [facility] for visit Narrative* Diagnostic Procedure Only (Urgent) - Closed Specialty Diagnoses / Procedures Referred By Contac t Referred To Contact XR IMAGING Diagnoses Foot injury, right, initial encounter Procedures XR FOOT GENERAL 3V AP/LAT/OBL RIGHT RADEX FOOT COMPLETE MINIMUM 3 VIEWS Tani Hardy, PRINTING ESTIMATOR.COMMUNITY HEALTH DIRECTOR [address] [place] [address] [place] [address] Referral ID Status Reason Start Date Expiration Date V isits Requested Visits Authorized [id number] Closed Auto-Generate d Referral 08/17/2022 09/16/2023 1 1 [facility] Summary Purpose Family History No Family History Records FoundNo Family History Records FoundNo Family History Records FoundNo Family History Records FoundNo Family History Records FoundNo Family History Records Found Advance Directives Documents on File Type Date Recorded 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 Advance Directives and Living Will Power of Decorating Instructor Reason for Referral Specialty Diagnoses / Procedures Referred By Contac t Referred To Contact Podiatry Diagnoses Acute right ankle pain Foot injury, right, initial encounter Procedures CONSULT TO PODIATRY OFFICE/OUTPATIENT NEW HIGH MDM 60-74 MINUTES Tani Hardy, PRINTING ESTIMATOR.COMMUNITY HEALTH DIRECTOR [address] [place] [address] Referral ID Status Reason Start Date Expiration Date Visits Requested Visits Authorized [id number] Pending Review PCP Requested Referral 08/26/2022 08/26/2023 1 1 Specialty Diagnoses / Procedures Referred By Contac t Referred To Contact XR IMAGING Diagnoses Acute right ankle pain Foot injury, right, initial encounter Procedures XR FOOT GENERAL 3V AP/LAT/OBL RIGHT RADEX FOOT COMPLETE MINIMUM 3 VIEWS Tani Hardy, EDILIA.COMMUNITY HEALTH DIRECTOR [address] [place] [address] Xr Imaging Referral ID Status Reason Start Date Expiration Date V isits Requested Visits Authorized [id number] Closed Auto-Generate d Referral 08/26/2022 09/25/2023 1 1 Specialty Diagnoses / Procedures Referred By Contac t Referred To Contact XR IMAGING Diagnoses Acute right ankle pain Procedures XR ANKLE GENERAL 3V AP/LAT/OBL RIGHT RADEX ANKLE COMPLETE MINIMUM 3 VIEWS Tani Hardy, PRINTING ESTIMATOR.COMMUNITY HEALTH DIRECTOR [address] [place] [address] Xr Imaging Referral ID Status Reason Start Date Expiration Date V isits Requested Visits Authorized [id number] Closed Auto-Generate d Referral 08/26/2022 09/25/2023 1 1 Additional Source Comments INFORMATION SOURCE (unrecogn ized section and content) DATE CREATED AUTHOR 09/01/2017 [place] [employer] [facility] ([place]) DATE CREATED AUTHOR AUTHOR'S ORGANIZ ATION 09/06/2017 [facility] DATE CREATED AUTHOR AUTHOR'S ORGANIZ ATION 09/07/[address] [facility] DATE CREATED AUTHOR AUTHOR'S ORGANIZ ATION 05/10/2020 [facility] DATE CREATED AUTHOR AUTHOR'S ORGANIZ ATION 05/25/2020 [facility] DATE CREATED AUTHOR AUTHOR'S ORGANIZ ATION 11/28/2023 [facility] Reason for Visit (unrecogniz ed section and content) Reason Comments Referral Ernie referral, V V, pain Status Reason Specialty Diagnoses / Procedures Referred By Contact Referred To Contact Closed Heart and Vascul ar Diagnostics Diagnoses Asymptomatic varicose veins of bilateral lower extremities Tierra Klein MD [address] [place] [address] [facility] [address], [address] [place] [address] Reason Comments Pain (foot) right foot bruised [...] initial encounter Procedures CONSULT TO PODIATRY OFFICE/OUTPATIENT [facility] 60-74 MINUTES Tani Hardy APRN.COMMUNITY HEALTH DIRECTOR [address] [place] [address] Referral ID Status Reason Start Date Expiration Date Visits Requested Visits Authorized [id number] Pending Review PCP Requested Referral 08/26/2022 08/26/2023 [...] or prosecute any alcohol or drug abuse patient.[facility] the event this information is protected by the Federal Confidentiality of Alcohol and Drug Abuse Patient Records regulations: The Federal rules restrict any use of the information to criminally investigate or prosecute any alcohol or drug abuse patient.[facility] the event this information is protected by the Federal Confidentiality of Alcohol and Drug Abuse Patient Records regulations: The Federal rules restrict any use of the information to criminally investigate or prosecute any alcohol or drug abuse patient.[facility] the event this information is protected by the Federal Confidentiality of Alcohol and Drug Abuse Patient Records regulations: The Federal rules restrict any use of the information to criminally investigate or prosecute any alcohol or drug abuse patient.[facility] the event this information is protected by the Federal Confidentiality of Alcohol and Drug Abuse Patient Records regulations: The Federal rules restrict any use of the information to criminally investigate or prosecute any alcohol or drug abuse patient.[facility] HospitalIn the event this information is protected by the Federal Confidentiality of Alcohol and Drug Abuse Patient Records regulations: The Federal rules restrict any use of the information to criminally investigate or prosecute any alcohol or drug abuse patient.[facility] HospitalIn the event this information is protected by the Federal Confidentiality of Alcohol and Drug Abuse Patient Records regulations: The Federal rules restrict any use of the information to criminally investigate or prosecute any alcohol or drug abuse patient.[facility] HospitalIn the event this information is protected by the Federal Confidentiality of Alcohol and Drug Abuse Patient Records regulations: The Federal rules restrict any use of the information to criminally investigate or prosecute any alcohol or drug abuse patient.[facility] HospitalIn the event this information is protected by the Federal Confidentiality of Alcohol and Drug Abuse Patient Records regulations: The Federal rules restrict any use of the information to criminally investigate or prosecute any alcohol or drug abuse patient.[facility] HospitalIn the event this information is protected by the Federal Confidentiality of Alcohol and Drug Abuse Patient Records regulations: The Federal rules restrict any use of the information to criminally investigate or prosecute any alcohol or drug abuse patient.[facility] HospitalIn the event this information is protected by the Federal Confidentiality of Alcohol and Drug Abuse Patient Records regulations: The Federal rules restrict any use of the information to criminally investigate or prosecute any alcohol or drug abuse patient.[facility] HospitalIn the event this information is protected by the Federal Confidentiality of Alcohol and Drug Abuse Patient Records regulations: The Federal rules restrict any use of the information to criminally investigate or prosecute any alcohol or drug abuse patient.[facility] HospitalIn the event this information is protected by the Federal Confidentiality of Alcohol and Drug Abuse Patient Records regulations: The Federal rules restrict any use of the information to criminally investigate or prosecute any alcohol or drug abuse patient.[facility] HospitalIn the event this information is protected by the Federal Confidentiality of Alcohol and Drug Abuse Patient Records regulations: The Federal rules restrict any use of the information to criminally investigate or prosecute any alcohol or drug abuse patient.[facility] HospitalIn the event this information is protected by the Federal Confidentiality of Alcohol and Drug Abuse Patient Records regulations: The Federal rules restrict any use of the information to criminally investigate or prosecute any alcohol or drug abuse patient.[facility] HospitalIn the event this information is protected by the Federal Confidentiality of Alcohol and Drug Abuse Patient Records regulations: The Federal rules restrict any use of the information to criminally investigate or prosecute any alcohol or drug abuse patient.[facility] Care Teams (unrecognized sec tion and content) Assignment Clerk Relationship Specialty Start Date End Date Tierra Klein MD PCP - General Internal Medicine 02/14/17 Assignment Clerk Relationship Specialty Start Date End Date Tierra Klein MD PCP - General Internal Medicine 02/14/17 Assignment Clerk Relationship Specialty Start Date End Date Tierra Klein MD PCP - General Internal Medicine 02/14/17 Assignment Clerk Relationship Specialty Start Date End Date Tierra Klein MD PCP - General Internal Medicine 02/14/17 Assignment Clerk Relationship Specialty Start Date End Date Tierra Klein MD PCP - General Internal Medicine 02/14/17 Assignment Clerk Relationship Specialty Start Date End Date Tierra Klein MD PCP - General Internal Medicine 02/14/17 Assignment Clerk Relationship Specialty Start Date End Date Tierra Klein MD PCP - General Internal Medicine 02/14/17 Assignment Clerk Relationship Specialty Start Date End Date Tierra Klein MD PCP - General Internal Medicine 02/14/17 Assignment Clerk Relationship Specialty Start Date End Date Tierra Klein MD PCP - General Internal Medicine 02/14/17 Assignment Clerk Relationship Specialty Start Date End Date Tierra Klein MD PCP - General Internal Medicine 02/14/17 Assignment Clerk Relationship Specialty Start Date End Date Tierra Klein MD PCP - General Internal Medicine 02/14/17 Assignment Clerk Relationship Specialty Start Date End Date Tierra Klein MD PCP - General Internal Medicine 02/14/17 Assignment Clerk Relationship Specialty Start Date End Date Tierra Klein MD PCP - General Internal Medicine 02/14/17 Assignment Clerk Relationship Specialty Start Date End Date Tierra Klein MD PCP - General Internal Medicine 02/14/17 Assignment Clerk Relationship Specialty Start Date End Date Tierra [...] BE BASED ON THE PRIMARY CLINICAL RECORDS. [facility] [employer] [facility]. provides no warranty or guarantee of the accuracy or completeness of information in this document.
--- NOTE | 2024-01-01 22:12 | ECHOD_ITS ---
Reason For Study: TIA/STROKE Procedure This was a 2D Doppler, Color Flow transthoracic echocardiogram. Technically difficult study due to patient being uncooperative, Definity decined. Exam performed portable in patient room. Left Ventricle Normal LV size. Mild concentric left ventricular hypertrophy. The left ventricular ejection fraction is 65 %. Stage 1 diastolic dysfunction. Right Ventricle Normal right ventricle. Atria The left and right atria are normal. Mitral Valve Trivial mitral valve insufficiency. Tricuspid Valve Mild tricuspid valve insufficiency. Normal pulmonary artery pressure. Aortic Valve Trisinus/trileaflet aortic valve. Trivial aortic valve insufficiency. Pulmonic Valve The pulmonic valve is not well visualized. Trivial pulmonic valve insufficiency. Great Vessels Normal sized aortic root. Pericardium/Pleural No pericardial effusion. MMode/2D Measurements & Calculations LVIDd: 3.4 cm IVSd: 1.3 cm LVOT diam: 1.8 cm LVIDs: 2.5 cm LVPWd: 1.2 cm LVOT area: 2.6 cm2 RVDd: 3.1 cm FS: 26.6 % Ao root diam: 3.1 cm asc Aorta Diam: 3.3 cm LAV(MOD-sp4): 30.9 ml LA A4 area: 14.2 cm2 LA dimension(2D): 2.4 cm RA A4 area: 10.6 cm2 Time Measurements MV dec time: 0.13 sec Doppler Measurements & Calculations MV E max max: 49.1 cm/sec Lat Peak E' Max: 6.4 cm/sec Med Peak E' Max: 5.1 cm/sec MV A max max: 70.6 cm/sec E/E' lat: 7.7 E/E' med: 9.6 MV E/A: 0.70 MV V2 max: 83.1 cm/sec Ao V2 max: 98.6 cm/sec MV max P.8 mmHg MV dec slope: 377.0 cm/sec2 Ao max P.9 mmHg MV V2 mean: 42.5 cm/sec Ao V2 mean: 68.4 cm/sec MV mean P.90 mmHg Ao mean P.2 mmHg MV V2 VTI: 16.0 cm Ao V2 VTI: 18.7 cm AV (velocity ratio): 1.0 MVA(VTI): 3.2 cm2 VIKRAM(I,D): 2.7 cm2 VIKRAM(V,D): 2.6 cm2 LV V1 max: 97.9 cm/sec SV(LVOT): 50.7 ml PA V2 max: 88.8 cm/sec LV V1 max P.8 mmHg PA V2 mean: 70.4 cm/sec LV V1 mean P.9 mmHg LV V1 mean: 64.4 cm/sec LV V1 VTI: 19.2 cm TR max max: 244.0 cm/sec TR max P.8 mmHg ECHO/Echo Complete Interpretation Summary Mild concentric left ventricular hypertrophy. The left ventricular ejection fraction is 65 %. Stage 1 diastolic dysfunction. Mild tricuspid valve insufficiency. Ordering Physician: Benton Redmond Referring Physician: TIERRA PATEL Performed By: Jayashree Oconnell RCS
[2024-01-01 23:13] LABS: Alcohol, Blood (Medical)-Serum < 3.0 mg/dL
[2024-01-01 23:20] LABS: Hemoglobin A1c 5.6 % (3.8-5.6)
[2024-01-02] MEDS: 0.9% Normal Saline (1000mL) 1,000 ML 50 ML IV (00:16)
--- OUTSIDE RECORDS SUMMARY | 2024-01-02 00:34 | XMS RPT_ITS | CCD ---
Author Organization [facility] Care Team Providers Care Mortar Man Name Role Phone ALEXIS CAMPBELLIL M Unavailable [...] Unavailable TIERRA KLEIN MD Unavailable Unavailable TIERRA KELIN MD Unavailable Unavailable TIERRA KLEIN MD Unavailable [...] Care Unavailable VINITA GANT MD Admitting Unavailable VIINTA GANT MD Attending Unavailable VINITA GANT MD Primary Care Unavailable VINITA GANT MD Consulting Unavailable PROVIDER, UNKNOWN Consulting Unavailable PROVIDER, UNKNOWN Consulting Unavailable Unavailable Primary Care Provider UnavailTierra Andrade MD Primary Care Provider [phone] Tierra Klein MD Primary Care Provider TIERRA KLEIN Primary Care Unavailable DINORA KLEIN [...] Translations: [TAPE] Propensity to adverse reactions (disorder) [facility] Repository (3 sources) estradiol; Translations: [ESTRADIOL] Drug Allergy 8 [facility] Repository (2 sources) estradiol Drug Allergy [facility] Repository (2 sources) penicillin Drug Allergy [facility] Repository (2 sources) Sulfonamides (Antibiotic) Drug allergy (disorder) [facility] Repository (2 sources) NSAID Drug allergy (disorder) [facility] Repository (2 sources) NOVOCAIN Drug allergy (disorder) [facility] Repository (17 sources) Acetate; Translations: [ACETATE SALT] Drug Allergy 5 Hives [facility] (17 sources) Adhesive Tape; Translations: [ADHESIVE TAPE (ROSINS)] Propensity to adverse reactions to substance 1 Rash, Itching [facility] (17 sources) Ciprofloxacin; Translations: [CIPROFLOXACIN] Drug Allergy 9 Swelling [facility] Work Phone: (16 sources) Estradiol Drug Allergy 8 GI Upset [facility] Work Phone: (17 sources) Estradiol / Levonorgestrel; Translations: [ESTRADIOL-DANIELLE ORGESTREL] Drug Allergy 8 Rash [facility] Work Phone: (17 sources) Estrogens, Conjugated (LONGTERM); Translations: [CONJUGATED ESTROGENS] Drug Allergy 8 GI Upset [facility] Work Phone: (17 sources) hydrOXYzine; Translations: [HYDROXYZINE] Drug Allergy 4 Other: See Comments [facility] Work Phone: (17 sources) Non-steroidal anti-inflammator y agent; Translations: [NSAIDS (NON-STEROIDAL ANTI-INFLAMMATOR Y DRUG)] Propensity to adverse reactions 8 GI Upset [facility] Work Phone: (17 sources) Penicillins; Translations: [PENICILLINS] Propensity to adverse reactions 5 [facility] Work Phone: (17 sources) Procaine; Translations: [PROCAINE HCL] Drug Allergy 5 [facility] Work Phone: (17 sources) Sulfonamides (Antibiotic); Translations: [SULFA (SULFONAMIDE ANTIBIOTICS)] Propensity to adverse reactions 5 [facility] Work Phone: (17 sources) Sodium Phosphates-Pramo x-Gly; Translations: [SODIUM PHOSPHATES-PRAMO X-GLY] Drug Intolerance 1 Intolerance [facility] Medications Current Medications Medication Drug Class(es) [...] on above: Take 1 capsule by mo [facility] three times a day as needed for [...] Acute recurrent sinusitis, unspecified location Use 1 Severy in each nostril once daily. 16 g 2 03/22/2016 Active Comment on above: Use 1 Severy in each nostril once daily. mineral oil [...] Test Name Value Interpretation Reference Range Facility [facility] 11-26-2023 CNOV Office Visit ([facility] ) ----- ESTHER HILL ([id number]) 1935 F Date Time Provider Department 11/26/23 11:00 AM ORESTES HOOKS [facility] During your visit today, we recorded the following information about you: Temperature Pulse Respiration Blood pressure 97.8 degrees 68/minute 16/minute 122/70 Weight 49.4 kg GeoEitanOrestesEDILIA goldman.BURNER MACHINE OPERATOR 11/26/2023 2:23 PM Signed Subjective Patient came in with complaints of right-sided rib pain. Patient says has been going on for about a month. Patient denies any difficulty breathing. Patient denies any pain when she urinates. Patient denies any other symptoms. Patient denies known injury and said she was pulling weeds before the pain started. The history is provided by the patient. No speech and language specialist was used. Review of Systems Constitutional: [...] SURGICAL HISTORY OF bile duct surg @ [place] PAST SURGICAL HISTORY OF 03/2015 had vein [...] Tape (Rosins), Estradiol, Fleet Phospho-Soda Accu-Prep [Sodium Epaldvhcgt-Givcjn-Adx], Hydroxyzine, Novocain [Procaine Hcl], Nsaids (Non-Steroidal Anti-Inflammatory [...] coagulans (PROBIOTIC, (more content not included)... [facility]2023 [facility] Telephone ([facility]) ----- ESTHER HILL ([id number]) 1935 F Date Time Provider Department 11/26/23 ORESTES HOOKS [facility] During your visit today, we recorded the following information about you: Orestes Hooks APRN.[facility] 11/26/2023 2:23 PM Signed Please call [...] (FLONASE) 50 mcg/actuation nasal spray Use 1 Severy in each nostril once daily. - calcium [...] lower quadrant [R10.31] 09/11/2008 08/24/2011 NO SHOW [513990] 11/25/2010 09/07/2013 Vitamin D deficiency [E55.9] 06/21/2011 Osteoporosis [M81.0] 12/27/2011 SBO (small bowel obstruction) ([facility]) [K56.609] 04/22/2012 Anxiety [F41.9] 10/30/2013 [...] diarrhea [K58.0] 03/05/2015 History of Clostridium difficile [UCE2649] 03/05/2015 Weight loss [R63.4] 03/05/2015 Family history of Crohn's disease [Z83.79] 03/05/2015 Diarrhea [R19.7] 04/30/2015 Ex-smoker [Z87.891] 05/06/2015 Well adult exam [Z00.00] 05/06/2015 Stenosis of left carotid artery [I65.22] 05/16/2015 Closed displaced fracture of proximal (more content not included)... Normal [facility] XR RIB/CHST 3V AP RIB/OBL/CH ST Tino [...] left costophrenic angle consistent with pleural fibrosis. [employer] Supervisor: Circular Transcribe Date/Time: Nov 26 2023 2:13P Dictated by : COLLIN ARRIAGA MD This examination was interpreted and the report reviewed and electronically signed by: COLLIN ARRIAGA MD on Nov 26 2023 2:16PM EST [id number] Normal [facility] XR Ribs - right Views and Ch est PAon 11-26-2023 IMPRESSION: Negative right ribs. No acute findings in the chest. 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 [employer] Supervisor: Circular Transcribe Date/Time: Nov 26 2023 2:13P Dictated by : COLLIN ARRIAGA MD This examination was interpreted and the report reviewed and electronically signed by: COLLIN ARRIAGA MD on Nov 26 2023 2:16PM [facility] DIVISION OF RADIOLOGY * * *Final Report* [...] Lines/tubes/devices: None visualized. DIVISION OF RADIOLOGY Provider, 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 [employer] Supervisor: IBETH Transcribe Date/Time: Nov 26 2023 2:13P Dictated by : COLLIN ARRIAGA MD This examination was interpreted and the report reviewed and electronically signed by: COLLIN ARRIAGA MD on Nov 26 2023 2:16PM [facility] Radiology Study observation (narrative) [facility] XR Ribs - right Views and Ch est PAOrdered By: Ccf Provider on 11-26-2023 [facility] CNOVon 10-24-2023 CNOV Office Visit ([facility]STR ) ----- ESTHER HILL ([id number]) 1935 F Date Time Provider Department 10/24/23 3:30 PM [facility] your visit today, we recorded the [...] no longer on eliquis. She was in [place] ED, and left due to wait. I advised that this time in day I could not get an US here in [place], and offered to check in [place], that to see her here in [facility] I would need same day results. Patient declined visit and to go to [place], and will go back to [place] ED There were no vitals taken for [...] have confirmed and edited as necessary, the [facility] ASSESSMENT/PLAN: 1. Left leg pain - [...] detail warranting prompt ER evaluation. Edna Carranza APRN.BURNER MACHINE OPERATOR Allergies As of Date: 10/24/2023 Noted Allergy [...] Date Reviewed: 06/08/2023 Reviewed by: Ronnie Vidal APRN.BURNER MACHINE OPERATOR - Fully Assessed Primary Visit Diagnosis:Left leg [...] (FLONASE) 50 mcg/actuation nasal spray Use 1 Severy in each nostril once daily. - calcium carbonate 600 mg-cholecalciferol 400 units (CALCIUM 600 + D) 600 mg(1,500mg) -400 unit tab Take 1 tablet by (more content not included)... Normal [facility] CNOVon 06-08-2023 CNOV Office Visit (UCWSTR ) ----- ESTHER HILL ([id number]) 1935 F Date Time Provider Department 06/08/23 [...] by coughs, sneezes, and direct contact, especially scpn-ep-bdrg. A respiratory tract infection usually clears up [...] Vidal AP (more content not included)... Normal [facility] CNOVon 06-03-2023 CNOV Office Visit ([facility]WSTR ) ----- ESTHER HILL ([id number]) 1935 F Date Time Provider Department 06/03/23 12:45 PM DINORA KLEIN [facility] During your visit today, we recorded the following information about you: Temperature Pulse Respiration Blood pressure 97.5 degrees 70/minute 18/minute 125/70 Weight 46.2 kg Dinora Klein APRN.[employer] MACHINE OPERATOR 06/03/2023 2:54 PM Signed This note was [...] SURGICAL HISTORY OF bile duct surg @ [place] PAST SURGICAL HISTORY OF 03/2015 had vein [...] Tape (Rosins), Estradiol, Fleet Phospho-Soda Accu-Prep [Sodium Ezxvuzgzyz-Ghnbui-Tub], Hydroxyzine, Novocain [Procaine Hcl], Nsaids (Non-Steroidal Anti-Inflammatory Drug), Penicillins, Premarin [Conjugated Estrogens], and Sulfa (Sulfonamide Antibiotics) MEDICATIONS aspirin, enteric coated (ASPIRIN, ENTERIC COATED) 81 mg EC tablet Take 81 (more content not included)... Normal [facility] No Panel Informationon 06-02 IMPRESSION: No acute osseous abnormality [employer] Supervisor: IBETH Transcribe Date/Time: Jun 03 2023 1:43P Dictated by : NJ GARZA MD This examination was interpreted and the report reviewed and electronically signed by: NJ GARZA MD on Jun 03 2023 1:48PM [facility] DIVISION OF RADIOLOGY Radiology Study observation (narrative) [facility] No Panel InformationOrdered By: Ccf Provider on 06-03-2023 [facility] XR FOREARM 2V AP/LAT RTon XR [...] space narrowing. IMPRESSION: No acute osseous abnormality Continuous [employer] Supervisor: [facility] Transcribe Date/Time: Jun 03 2023 1:43P Dictated by : NJ GARZA MD This examination was interpreted and the report reviewed and electronically signed by: NJ GARZA MD on Jun 03 2023 1:48PM EST [id number] Normal [facility] XR HUMERUS 2V AP/LAT RTon XR HUMERUS [...] space narrowing. IMPRESSION: No acute osseous abnormality [employer] Supervisor: PSCB Transcribe Date/Time: Jun 03 2023 1:43P Dictated by : NJ GARZA MD This examination was interpreted and the report reviewed and electronically signed by: NJ GARZA MD on Jun 03 2023 1:48PM EST [id number] Normal [facility] XR Humerus - right AP and La [...] joint space narrowing. DIVISION OF RADIOLOGY Provider, [facility] - 06/03/2023 * * *Final Report* * [...] narrowing. IMPRESSION IMPRESSION: No acute osseous abnormality [employer] Supervisor: PSCB Transcribe Date/Time: Jun 03 2023 1:43P Dictated by : NJ GARZA MD This examination was interpreted and the report reviewed and electronically signed by: NJ GARZA MD on Jun 03 2023 1:48PM EST [facility] XR Radius and Ulna - right [...] joint space narrowing. DIVISION OF RADIOLOGY Provider, [facility] - 06/03/2023 * * *Final Report* * [...] narrowing. IMPRESSION IMPRESSION: No acute osseous abnormality [employer] Supervisor: [facility] Transcribe Date/Time: Jun 03 2023 1:43P Dictated by : NJ GARZA MD This examination was interpreted and the report reviewed and electronically signed by: NJ GARZA MD on Jun 03 2023 1:48PM [facility] XR THORACIC 2V AP/LATon 05-13 XR [...] L1 has developed since the prior study [employer] Supervisor: IBETH Transcribe Date/Time: Jun 03 2023 1:40P Dictated by : NJ GARZA MD This examination was interpreted and the report reviewed and electronically signed by: NJ GARZA MD on Jun 03 2023 1:43PM EST [id number] Normal [facility] XR Thoracic spine AP and Lat eralon 06-03-2023 IMPRESSION: Compression fracture of the vertebral body of L1 has developed since the prior study [employer] Supervisor: IBETH Transcribe Date/Time: Jun 03 2023 1:40P [...] degenerative disc disease. DIVISION OF RADIOLOGY Provider, [facility] - 06/03/2023 * * *Final Report* * [...] L1 has developed since the prior study [employer] Supervisor: IBETH Transcribe Date/Time: Jun 03 2023 1:40P Dictated by : NJ GARZA MD This examination was interpreted and the report reviewed and electronically signed by: JN GARZA MD on Jun 03 2023 1:43PM [facility] CNOVon 12-25-2022 CNOV Office Visit (UCWSTR ) ----- ESTHER HILL ([id number]) 1935 F Date Time Provider Department 12/25/22 2:15 PM TRACEY VALLE [facility] During your visit today, we recorded the following information about you: Tracey Valle APRN.[facility] 12/25/2022 2:48 PM Signed Subjective HPI [...] SURGICAL HISTORY OF bile duct surg @ [place] PAST SURGICAL HISTORY OF 03/2015 had vein [...] Tape (Rosins), Estradiol, Fleet Phospho-Soda Accu-Prep [Sodium Fbcdzuphrx-Oekkzz-Mcr], Hydroxyzine, Novocain [Procaine Hcl], Nsaids (Non-Steroidal Anti-Inflammatory [...] (FLONASE) 50 mcg/actuation nasal spray Use 1 Severy in each nostril once daily. ONE DAILY MULTIVITAMIN ORAL Take by mouth once daily. vitamins oxyCODONE-acetaminophen (more content not included)... Normal [facility] CNOVon 12-24-2022 CNOV Office Visit ([facility]WSTR ) ----- ESTHER HILL ([id number]) 1935 F Date Time Provider Department 12/24/22 6:45 PM TRACEY VALLE [facility] During your visit today, we recorded the following information about you: Temperature Pulse Respiration Blood pressure 98.4 degrees 84/minute 18/minute 126/78 Weight 45.8 kg Tracey Valle APRN.BURNER MACHINE OPERATOR 12/24/2022 7:03 PM Signed Subjective Laceration Estherkang [...] SURGICAL HISTORY OF bile duct surg @ [place] PAST SURGICAL HISTORY OF 03/2015 had vein [...] Tape (Rosins), Estradiol, Fleet Phospho-Soda Accu-Prep [Sodium Pnhekrcovw-Ztsaix-Hwq], Hydroxyzine, Novocain [Procaine Hcl], Nsaids (Non-Steroidal Anti-Inflammatory [...] Take 5 (more content not included)... Normal [facility] No Panel Informationon 08-26 IMPRESSION: No acute osseous abnormality [employer] Supervisor: IBETH Transcribe Date/Time: Aug 26 2022 2:39P Dictated by : NJ GARZA MD This examination was interpreted and the report reviewed and electronically signed by: NJ GARZA MD on Aug 26 2022 2:43PM [facility] DIVISION OF RADIOLOGY Radiology Study observation (narrative) [facility] No Panel InformationOrdered By: Ccf Provider on 08-26-2022 [facility] XR Ankle - right AP and [...] maintained. DIVISION OF RADIOLOGY Provider, [facility] - 08/26/2022 * * *Final Report* [...] maintained. IMPRESSION IMPRESSION: No acute osseous abnormality Continuous [employer] Supervisor: [facility] Transcribe Date/Time: Aug 26 2022 2:39P Dictated by : NJ GARZA MD This examination was interpreted and the report reviewed and electronically signed by: NJ GARZA MD on Aug 26 2022 2:43PM [facility] XR Foot - right AP and [...] spaces are maintained. DIVISION OF RADIOLOGY Provider, [facility] - 08/26/2022 * * *Final Report* * [...] maintained. IMPRESSION IMPRESSION: No acute osseous abnormality Continuous [employer] Supervisor: PSCNaty Transcribe Date/Time: Aug 26 2022 2:39P Dictated by : NJ GARZA MD This examination was interpreted and the report reviewed and electronically signed by: NJ GARZA MD on Aug 26 2022 2:43PM EST [facility] XR FOOT GENERAL 3V AP/LAT/OB L RIGHTon 08-17-2022 [facility] XR Foot - right AP and Later al and obliqueon 08-17-2022 IMPRESSION: No acute bony finding. Continuous [employer] Supervisor: PSCB Transcribe Date/Time: Aug 17 2022 6:25P Dictated by : AURELIO VENCES MD This examination was interpreted and the report reviewed and electronically signed by: AURELIO VENCES MD on Aug 17 2022 7:13PM [facility] DIVISION OF RADIOLOGY * * *Final Report* [...] evident. IMPRESSION IMPRESSION: No acute bony finding. Continuous [employer] Supervisor: PSCB Transcribe Date/Time: Aug 17 2022 6:25P Dictated by : AURELIO VENCES MD This examination was interpreted and the report reviewed and electronically signed by: AURELIO VENCES MD on Aug 17 2022 7:13PM EST [facility] Radiology Study observation (narrative) [facility] XR Foot - right AP and Later al and obliqueOrdered By: Ccf Provider on 08-17-2022 [facility] PANCREATIC ELASTASE, FECAL [ CCL]on 05-24-2020 PANCREATIC ELASTASE, FECAL [CCL] Normal [facility] Comment on above: Result Comment: _PAN CREATIC ELASTASE, FECAL [CCL]_ SEE SEPARATE REPORT Performed By: #### 2 [id number] #### [place] [id number] GI PARASITE PANEL BY PCR [CC L]on 05-15-2020 GI PARASITE PANEL BY PCR [CCL] Normal [facility] Comment on above: Result Comment: ELEAZAR [place] WILD13 IN CCL. ARUP CODE: GI PARAPCR Performed By: #### 2 76573 #### [place] [id number] Panc Elastase, Fecalon 05-09 Panc Elastase, Fecal 345 ug/g Normal >=100 [facility] Comment on above: Performed By: #### C DIALLO #### [facility] Microbiology - [address] [place] [id number] CALPROTECTIN, FECAL [CCL]on 05-08-2020 Calprotectin Comment INTERPRETIVE INFORMATION: Normal [facility] Comment on above: Result Comment: INTE RPRETIVE INFORMATION: Calprotectin, Fecal <50.0 mg/kg : Normal 50.0-120.0 mg/kg: Borderline. Test should be re-evaluated in 4-6 weeks. >120.0 mg/kg : Abnormal [facility] [address] [place] [address] Stan Mauricio III, M.D. [id number] Performed By: #### 2 80687 #### [address] [address] Calprotectin Interp Normal Normal [facility] Comment on above: Performed By: #### 2 51689 #### [facility],[address] [place] [address] Protein [Mass/Vol] g/dL Normal <50.0 [facility] Comment on above: Performed By: #### 2 26770 #### [facility],[address] [place] [address] Calprotectin, Fecalon 2020 Calprotectin Comment Normal [facility] Comment on above: Result Comment: INTE RPRETIVE INTERPRETIVE INFORMATION: Calprotectin, Fecal <50.0 mg/kg : Normal 50.0-120.0 mg/kg: Borderline. Test should be re-evaluated in 4-6 weeks. >120.0 mg/kg : Abnormal INFORMATION: INTERPRETIVE INFORMATION: Calprotectin, Fecal <50.0 mg/kg : Normal 50.0-120.0 mg/kg: Borderline. Test should be re-evaluated in 4-6 weeks. >120.0 mg/kg : Abnormal Performed By: #### C DIALLO #### [facility] Microbiology - [address] [place] [address] Calprotectin Interp NORMAL Normal [facility] Comment on above: Performed By: #### C DIALLO #### [facility] Microbiology - [address] [place] [id number] Protein [Mass/Vol] g/dL Normal <50.0 [facility] Comment on above: Performed By: #### C DIALLO #### [facility] Microbiology - [address] [place] [id number] CULTURE STOOLon 05-05-2020 CULTURE STOOL CULTURE STOOL _STOOL CULTURE_ CAMPYLOBACTER Not detected SALMONELLA Not Detected YERSINIA Not detected SHIGELLA Not Detected [id number] M I C R O B I O L O G Y R E P O R T FINAL -------- Antimicrobial Susceptibility and Organism Identification Report --------- Specimen Number : [id number] Requested : 05/05/20 Specimen Source : STOOL Collected : 05/05/20 13:00 [place] of Isolation : OUTPATIENT Received : 05/05/20 13:00 Requesting Physician : SHANNAN ------- Patient/Specimen Tests and Comments Specimen Comments --------- --------- FINAL REPORT: SALMONELLA:NEGATIVE SHIGELLA:NEGATIVE YERSINIA:NEGATIVE CAMPYLOBACTER:NEGATIVE ------- Tech : _ Source : STOOL ID # : [id number] FINAL Report Date : / / : Collected : 05/05/20 13:00 [id number] Normal [facility] Comment on above: Performed By: #### 2 [id number] #### [facility],[address] [place] [address] OCCULT BLOOD STOOL (CANCER S CREENING)on 05-05-2020 OCCULT BLOOD STOOL Normal [facility] Comment on above: Result Comment: NEGA TIVE NEGATIVE NEGATIVE Performed By: #### 2 97940 #### [facility],[address] [place] [address]166 MR LUMBAR SP WO CONTRASTon 0 03-21-2020 MR LUMBAR SP WO CONTRAST [address] [address] Patient: ESTHER HILL Phone#: : 1935 Age: 84 Gender: F Pt. Type: Out Account: [id number] Location: [facility] Ordering: DR. ANDREINA GALLEGOS Exam Date: 03/21/2020/13:00 Family Phys: Charge Code: 823936 Physician: Whitley Order #: [id number] DLP Dose#: PROCEDURE: MRI LUMBAR SPINE WITHOUT [...] 84 Gender: F Pt. Type: Out Account: [id number] Location: [facility] Ordering: DR. ANDREINA GALLEGOS Exam Date: 03/21/2020/13:00 Family Phys: Charge Code: 926932 Physician: Whitley Order #: [id number] DLP Dose#: 1. Multilevel degenerative change. There is foraminal impingement most marked at L3-4 and L4-5. 2. Anterior wedging at T12 is present and stable since November 18, 2018. Dictated by: Ritika Baugh MD on 03/21/2020 at 13:45 Approved by: Ritika Baugh MD on 03/21/2020 at 13:56 Normal [facility] CBC + DIFFon 03-19-2020 Basophils (Bld) [#/Vol] 0.10 x10EE3/UL Normal 0.00 - 0.10 [facility] Comment on above: Performed By: #### 2 24068 #### [facility],[address] [place] [address] Basophils/100 WBC (Bld) 0.9 % Normal 0.0 - 2.0 [facility] Comment on above: Performed By: #### 2 26731 #### [place] [id number] CBC + DIFF Normal [facility] Comment on above: Result Comment: CBC- COMPLETE BLOOD COUNT Performed By: #### 2 82790 #### [facility],[address] [place], [place] [id number] Eosinophils (Bld) [#/Vol] 0.10 x10EE3/UL Normal 0.00 - 0.50 [facility] Comment on above: Performed By: #### 2 74370 #### [facility],[address] [place], [place] [id number] Eosinophils/100 WBC (Bld) 1.0 % Normal 0.0 - 7.0 [facility] Comment on above: Performed By: #### 2 04682 #### [facility],[address] [place], [place] [id number] Erythrocyte distribution width (RBC) [Ratio] 13.6 % Normal 12.0 - 15.6 [facility] Comment on above: Performed By: #### 2 21790 #### [facility],[address] [place], [place] [id number] Hematocrit (Bld) [Volume fraction] 34.0 % Normal 34.0 - 46.0 [facility] Comment on above: Performed By: #### 2 29595 #### [facility],[address] [place] [address] Hemoglobin (Bld) [Mass/Vol] 11.8 g/dL Low 12.0 - 16.0 [facility] Comment on above: Performed By: #### 2 82986 #### [facility],[address] [place] [address]6 Lymphocytes (Bld) [#/Vol] 1.60 x10EE3/UL Normal 0.80 - 2.80 [facility] [facility] Comment on above: Performed By: #### 2 53912 #### [facility],[address] [place] [address] 15746 Lymphocytes/100 WBC (Bld) 25.8 % Normal 20.0 - 45.0 [facility] Comment on above: Performed By: #### 2 94225 #### [facility],[address] [place] [address] 13387 MANUAL DIFF N/A Normal [facility] Comment on above: Performed By: #### 2 81250 #### [facility],[address] [place] [address] 44422 MCH (RBC) [Entitic mass] 31 pg Normal 27 - 33 [facility] Comment on above: Performed By: #### 2 83269 #### [facility],[address] [place] [address] 17003 MCHC (RBC) [Mass/Vol] 35 X10 3 Normal 32 - 36 [facility] Comment on above: Performed By: #### 2 96890 #### [facility],[address] [place] [address] 05977 MCV (RBC) [Entitic vol] 89 fL Normal 80 - 99 [facility] Comment on above: Performed By: #### 2 24675 #### [facility],[address] [place] [address] 83521 Monocytes (Bld) [#/Vol] 0.70 x10EE3/UL Normal 0.20 - 1.00 [facility] Comment on above: Performed By: #### 2 53988 #### [facility],[address] [place] [address] 22461 MONOS % 10.6 % High 0.0 - 10.0 [facility] Comment on above: Performed By: #### 2 09977 #### [facility],[address] [place] [address] 20803 Morphology Herberth (Bld) [Interp] N/A Normal [facility] Comment on above: Result Comment: {CD] Performed By: #### 2 89517 #### [address] [address] Neutrophils (Bld) [#/Vol] 3.90 x10EE3/UL Normal 1.50 - 7.10 [facility] Comment on above: Performed By: #### 2 74874 #### [facility],[address] [place] [address] 37085 Neutrophils/100 WBC (Bld) 61.7 % Normal 46.0 - 76.0 [facility] Comment on above: Performed By: #### 2 76955 #### [address] [address] Platelet mean volume (Bld) [Entitic vol] 7.0 fL Normal 6.6 - 10.5 [facility] Comment on above: Result Comment: AUTO MATED DIFFERENTIAL Performed By: #### 2 24411 #### [address] [address] Platelets (Bld) [#/Vol] 360 x10EE3/UL Normal 150 - 450 [facility] Comment on above: Performed By: #### 2 60448 #### [address] [address] RBC (Bld) [#/Vol] 3.83 x 10EE6/UL Low 4.10 - 5.30 [facility] Comment on above: Performed By: #### 2 15106 #### [address] [address] WBC (Bld) [#/Vol] 6.3 x 10EE3/UL Normal 4.5 - 10.8 [facility] Comment on above: Performed By: #### 2 95456 #### [facility],[address] [place] [address] 53743 CMP with eGFRon 03-19-2020 Age - Reported 84 years Normal [facility] Comment on above: Performed By: #### 2 09848 #### [address] [address] Albumin [Mass/Vol] 3.6 g/dL Normal 3.4 - 5.0 [facility] Comment on above: Performed By: #### 2 30226 #### [facility],[address] [place] [address] 83862 Albumin/Globulin [Mass ratio] 1.2 {ratio} Normal 0.9 - 1.6 [facility] Comment on above: Performed By: #### 2 95706 #### [facility],[address] [place] [address] 26537 ALK PHOS 91 U/L Normal 46 - 116 [facility] Comment on above: Performed By: #### 2 63115 #### [facility],[address] [place] [address] 60935 ALT/SGPT 31 U/L Normal 14 - 59 [facility] Comment on above: Performed By: #### 2 53869 #### [facility],[address] [place] [address] 14288 Anion gap [Moles/Vol] 10 mmol/L Normal 10 - 20 [facility] Comment on above: Performed By: #### 2 15351 #### [facility],[address] [place] [address] 49520 AST/SGOT 23 U/L Normal 13 - 39 [facility] Comment on above: Performed By: #### 2 87173 #### [facility],[address] [place] [address] 63665 B/C RATIO 23 ratio Normal 0 - 30 [facility] Comment on above: Performed By: #### 2 15539 #### [facility],[address] [place] [address] 64430 Bilirubin [Mass/Vol] 0.4 mg/dL Normal 0.2 - 1.0 [facility] Comment on above: Performed By: #### 2 22889 #### [facility],[address] [place] [address] 63838 Calcium [Mass/Vol] 8.8 mg/dL Normal 8.5 - 10.1 [facility] Comment on above: Performed By: #### 2 51507 #### [facility],[address] [place] [address] 67748 Chloride [Moles/Vol] 105 mmol/L Normal 98 - 107 [facility] Comment on above: Performed By: #### 2 77988 #### [facility],[address] [place] [address] 63782 CO2 [Moles/Vol] 30.8 mmol/L Normal 21.0 - 32.0 [facility] Comment on above: Performed By: #### 2 64682 #### [place] [address] Creatinine [Mass/Vol] 0.6 mg/dL Normal 0.5 - 1.0 [facility] Comment on above: Performed By: #### 2 73184 #### [address] [address] GFR/1.73 sq M predicted among non-blacks MDRD (S/P/Bld) [Vol rate/Area] Normal [facility] Comment on above: Result Comment: COMP REHENSIVE METABOLIC PANEL Performed By: #### 2 10867 #### [address] [address] GFR/1.73 sq M predicted among non-blacks MDRD (S/P/Bld) [Vol rate/Area] mL/min/{1.73_m2} Normal 60 - 999 [facility] Comment on above: Result Comment: ACCO RDING TO THE NATIONAL KIDNEY DISEASE EDUCATION PROGRAM(NKDE), A NORMAL eGFR IS A VALUE GREATER THAN OR EQUAL TO 60 ML/MIN/1.73 SQ METERS. CHRONIC KIDNEY DISEASE: <60mL/MIN/1.73 SQ METERS KIDNEY FAILURE: <15mL/MIN/1.73 SQ METERS THIS TEST SHOULD ONLY BE USED FOR PATIENTS 18 YEARS OF AGE AND OLDER. Performed By: #### 2 18162 #### [place] [id number] Globulin (S) [Mass/Vol] 3.1 g/dL Normal 1.5 - 3.8 [facility] Comment on above: Performed By: #### 2 98498 #### [facility],[address] [place] [address] 82803 Glucose [Mass/Vol] 94 mg/dL Normal 74 - 106 [facility] Comment on above: Performed By: #### 2 07968 #### [facility],[address] [place] [address] 11303 Potassium [Moles/Vol] 3.4 mmol/L Low 3.5 - 5.1 [facility] Comment on above: Performed By: #### 2 04883 #### [facility],[address] [place] [address] 45738 Protein [Mass/Vol] 6.7 g/dL Normal 6.4 - 8.2 [facility] Comment on above: Performed By: #### 2 04925 #### [facility],[address] [place] [address] 90089 Sodium [Moles/Vol] 142 mmol/L Normal 136 - 145 [facility] Comment on above: Performed By: #### 2 12107 #### [facility],[address] [place] [address] 27989 Urea nitrogen [Mass/Vol] 14 mg/dL Normal 7 - 18 [facility] Comment on above: Performed By: #### 2 06015 #### [facility],[address] [place] [address] CHEST W/O CONTRASTon 09-11 CT CHEST W/O CONTRAST [place] [address] Patient: ESTHER HILL Phone#: : 1935 Age: 83 Gender: F Pt. Type: Out Account: [id number] Location: 052 Ordering: [employer] Exam Date: 09/21/2019/12:53 Family Phys: VINITA GANT Charge Code: [id number] Physician: Whitley Order #: [id number] DLP Dose#: PROCEDURE: CT CHEST WITHOUT CONTRAST COMPARISON: [facility], CT, ABDOMEN/PELVIS W CON, 11/18/2018, 11:02. [facility], CT, CHEST PE W CON, 12/06/2013, 19:22. [facility], CT, CHEST PE W CON, 09/20/2016, 13:28. [facility], CT, CHEST PE W CON, 03/17/2017, 20:17. [...] 83 Gender: F Pt. Type: Out Account: [id number] Location: 052 Ordering: VINITA HEALBEJODIETTI Exam Date: 09/21/2019/12:53 Family Phys: VINITA GANT Charge Code: [id number] Physician: Whitley Order #: [id number] DLP Dose#: BONES: There is diffuse bony [...] Amaya MD on 09/21/2019 at 16:30 Normal [facility] SHOULDER COMPLETE RTon 09-20 SHOULDER COMPLETE RT [place] [address] Patient: ESTHER HILL. Phone#: : 1935 Age: 83 Gender: F Pt. Type: Out Account: [id number] Location: 2 Ordering: VINITA GANT Exam Date: 09/21/2019/13:02 Family Phys: VINITA GANT Charge Code: [id number] Physician: Whitley Order #: [id number] DLP Dose#: PROCEDURE: X-RAY SHOULDER COMPLETE RT [...] Amaya MD on 09/21/2019 at 15:07 Normal [facility] EMERGENCY REPORTon 0 EMERGENCY REPORT [facility] EMERGENCY ROOM REPORT NAME ACCOUNT SEX AGE ADMIT DISCHARGE PT MED. RECORD# NUMBER DATE DATE TYPE SERGIO [id number] F 83 08/24/19 08/25/19 3 ESTHER [place]za [id number] ROOM: ER DATE OF : 1935 DICTATING [...] motor or sensory deficits are noted. Hand rn otolaryngology are strong, symmetric. Capillary refill less than [...] as well and then reevaluate. Dictated By: oLuis Stanley DO 08/24/19 22:09 JOB #: [id number] Transcribed By: clint 08/26/19 06:21 Electronically signed by: E-Sign: Dr. Louis Stanley D.O. 08/26/19 19:35 Page 2 of 2 ESTHER HILL Emergency Room Report Normal [facility] EMERGENCY REPORT [facility] EMERGENCY ROOM REPORT NAME ACCOUNT SEX AGE ADMIT DISCHARGE PT MED. RECORD# NUMBER DATE DATE TYPE SERGIO [id number] F 83 08/24/19 08/25/19 3 ESTHER Mirza [id number] ROOM: ER DATE OF : 1935 DICTATING [...] Louis Stanley DO 08/25/19 01:10 JOB #: [id number] Transcribed By: clint 08/26/19 07:31 Electronically signed by: E-Sign: Dr. Louis Stanley D.O. 08/26/19 19:35 Page 1 of 2 ESTHER HILL Emergency Room Report ESTHER HILL : 1935 Page 2 of 2 ESTHER HILL Emergency Room Report Normal [facility] CBC + DIFFon 08-25-2019 Basophils (Bld) [#/Vol] 0.00 x10EE3/UL Normal 0.00 - 0.10 [facility] Comment on above: Performed By: #### 2 43405 #### [facility],[address] [place] [address] Basophils/100 WBC (Bld) 0.5 % Normal 0.0 - 2.0 [facility] Comment on above: Performed By: #### 2 17915 #### [facility],[address] [place], [place] [id number] CBC + DIFF Normal [facility] Comment on above: Result Comment: CBC- COMPLETE BLOOD COUNT Performed By: #### 2 90596 #### [facility],[address] [place], [place] [id number] Eosinophils (Bld) [#/Vol] 0.00 x10EE3/UL Normal 0.00 - 0.50 [facility] Comment on above: Performed By: #### 2 47066 #### [facility],[address] [place], [place] [address] Eosinophils/100 WBC (Bld) 0.3 % Normal 0.0 - 7.0 [facility] Comment on above: Performed By: #### 2 16811 #### [facility],[address] [place], [place] [address] Erythrocyte distribution width (RBC) [Ratio] 12.9 % Normal 12.0 - 15.6 [facility] Comment on above: Performed By: #### 2 83144 #### [facility],[address] [place], [place] [address] Hematocrit (Bld) [Volume fraction] 31.2 % Low 34.0 - 46.0 [facility] Comment on above: Performed By: #### 2 54713 #### [facility],[address] [place] [address] 44908 Hemoglobin (Bld) [Mass/Vol] 10.9 g/dL Low 12.0 - 16.0 [facility] Comment on above: Performed By: #### 2 41836 #### [facility],[address] [place] [address] 48584 Lymphocytes (Bld) [#/Vol] 0.90 x10EE3/UL Normal 0.80 - 2.80 [facility] Comment on above: Performed By: #### 2 64705 #### [facility],[address] [place] [address] 48797 Lymphocytes/100 WBC (Bld) 10.5 % Low 20.0 - 45.0 [facility] Comment on above: Performed By: #### 2 04294 #### [facility],[address] [place] [address] 51475 MANUAL DIFF N/A Normal [facility] Comment on above: Performed By: #### 2 93619 #### [facility],[address] [place] [address] 92070 MCH (RBC) [Entitic mass] 30 pg Normal 27 - 33 [facility] Comment on above: Performed By: #### 2 38172 #### [facility],[address] [place] [address] 72497 MCHC (RBC) [Mass/Vol] 35 X10 3 Normal 32 - 36 [facility] Comment on above: Performed By: #### 2 75435 #### [facility],[address] [place] [address] 51620 MCV (RBC) [Entitic vol] 87 fL Normal 80 - 99 [facility] Comment on above: Performed By: #### 2 89734 #### [facility],[address] [place] [address] 67367 Monocytes (Bld) [#/Vol] 1.30 x10EE3/UL High 0.20 - 1.00 [facility] Comment on above: Performed By: #### 2 70270 #### [facility],[address] [place] [address] 52540 MONOS % 14.8 % High 0.0 - 10.0 [facility] Comment on above: Performed By: #### 2 60102 #### [facility],[address] [place] [address] 90744 Morphology Herberth (Bld) [Interp] N/A Normal [facility] Comment on above: Performed By: #### 2 60023 #### [facility],[address] [place] [address] 80625 Neutrophils (Bld) [#/Vol] 6.30 x10EE3/UL Normal 1.50 - 7.10 [facility] Comment on above: Performed By: #### 2 10237 #### [facility],[address] [place] [address] 71760 Neutrophils/100 WBC (Bld) 73.9 % Normal 46.0 - 76.0 [facility] Comment on above: Performed By: #### 2 43215 #### [facility],[address] [place] [address] 13686 Platelet mean volume (Bld) [Entitic vol] 7.1 fL Normal 6.6 - 10.5 [facility] Comment on above: Result Comment: AUTO MATED DIFFERENTIAL Performed By: #### 2 59826 #### [facility],[address] [place] [address] 77526 Platelets (Bld) [#/Vol] 259 x10EE3/UL Normal 150 - 450 [facility] Comment on above: Performed By: #### 2 24867 #### [facility],[address] [place] [address] 56360 RBC (Bld) [#/Vol] 3.58 x 10EE6/UL Low 4.10 - 5.30 [facility] Comment on above: Performed By: #### 2 65731 #### [facility],[address] [place] [address] 22155 WBC (Bld) [#/Vol] 8.5 x 10EE3/UL Normal 4.5 - 10.8 [facility] Comment on above: Performed By: #### 2 52647 #### [facility],[address] [place] [address] 73623 CMP with eGFRon 08-25-2019 Age - Reported 83 years Normal [facility] Comment on above: Performed By: #### 2 64948 #### [facility],[address] [place] [address] 60763 Albumin [Mass/Vol] 3.8 g/dL Normal 3.4 - 4.8 [facility] Comment on above: Performed By: #### 2 25490 #### [facility],[address] [place] [address] 34739 Albumin/Globulin [Mass ratio] 1.5 {ratio} Normal 0.9 - 1.6 [facility] Comment on above: Performed By: #### 2 84840 #### [facility],[address] [place] [address] 92250 ALK PHOS 89 U/L Normal 38 - 126 [facility] Comment on above: Performed By: #### 2 38202 #### [facility],[address] [place] [address] 55060 ALT/SGPT 41 U/L High 8 - 35 [facility] Comment on above: Performed By: #### 2 73915 #### [facility],[address] [place] [address] 98471 Anion gap [Moles/Vol] 13 mmol/L Normal 10 - 20 [facility] Comment on above: Performed By: #### 2 76827 #### [facility],[address] [place] [address] 01342 AST/SGOT 37 U/L Normal 13 - 39 [facility] Comment on above: Performed By: #### 2 98206 #### [facility],[address] [place] [address] 32847 B/C RATIO 21 ratio Normal 0 - 30 [facility] Comment on above: Performed By: #### 2 16532 #### [facility],[address] [place] [address] 63967 Bilirubin [Mass/Vol] 0.4 mg/dL Normal 0.0 - 1.5 [facility] Comment on above: Performed By: #### 2 44831 #### [facility],[address] [place] [address] 19726 Calcium [Mass/Vol] 8.7 mg/dL Normal 8.6 - 10.2 [facility] Comment on above: Performed By: #### 2 74188 #### [facility],[address] [place] [address] 87867 Chloride [Moles/Vol] 99 mmol/L Normal 98 - 107 [facility] Comment on above: Performed By: #### 2 87342 #### [facility],[address] [place] [address] 05921 CO2 [Moles/Vol] 26.7 mmol/L Normal 21.0 - 31.0 [facility] Comment on above: Performed By: #### 2 31873 #### [facility],[address] [place] [address] 35624 Creatinine [Mass/Vol] 0.7 mg/dL Normal 0.6 - 1.2 [facility] Comment on above: Performed By: #### 2 41657 #### [facility],[address] [place] [address] 05412 GFR/1.73 sq M predicted among non-blacks MDRD (S/P/Bld) [Vol rate/Area] mL/min/{1.73_m2} Normal 60 - 999 [facility] Comment on above: Result Comment: ACCO RDING TO THE NATIONAL KIDNEY DISEASE EDUCATION PROGRAM(NKDE), A NORMAL eGFR IS A VALUE GREATER THAN OR EQUAL TO 60 ML/MIN/1.73 SQ METERS. CHRONIC KIDNEY DISEASE: <60mL/MIN/1.73 SQ METERS KIDNEY FAILURE: <15mL/MIN/1.73 SQ METERS THIS TEST SHOULD ONLY BE USED FOR PATIENTS 18 YEARS OF AGE AND OLDER. Performed By: #### 2 97510 #### [facility],[address] [place] [address] 40162 GFR/1.73 sq M predicted among non-blacks MDRD (S/P/Bld) [Vol rate/Area] Normal [facility] Comment on above: Result Comment: COMP REHENSIVE METABOLIC PANEL Performed By: #### 2 31105 #### [facility],[address] [place] [address] 74510 Globulin (S) [Mass/Vol] 2.5 g/dL Normal 1.5 - 3.8 [facility] Comment on above: Performed By: #### 2 32984 #### [facility],[address] [place] [address] 74515 Glucose [Mass/Vol] 107 mg/dL High 74 - 106 [facility] Comment on above: Performed By: #### 2 02139 #### [facility],[address] [place] [address] 96830 Potassium [Moles/Vol] 2.8 mmol/L Critically low 3.5 - 5.1 [facility] Comment on above: Result Comment: { CA LLED TO STEVEN @9735/ADL { READ BACK BY STEVEN RA@2293 Performed By: #### 2 70123 #### [facility],[address] [place] [address] 17124 Protein [Mass/Vol] 6.3 g/dL Low 6.4 - 8.3 [facility] Comment on above: Performed By: #### 2 67210 #### [facility],[address] [place] [address] 49365 Sodium [Moles/Vol] 136 mmol/L Normal 136 - 145 [facility] Comment on above: Performed By: #### 2 04480 #### [facility],[address] [place] [address] 17502 Urea nitrogen [Mass/Vol] 15 mg/dL Normal 6 - 20 [facility] Comment on above: Performed By: #### 2 50705 #### [facility],[address] [place] [address] 45618 CULTURE URINEon 08-25-2019 CULTURE URINE CULTURE URINE _URINE CULTURE_ M I C R O B I O L O G Y R E P O R T FINAL -------- Antimicrobial Susceptibility and Organism Identification Report --------- Specimen Number : [id number] Requested : 08/24/19 Specimen Source : URINE [...] _ Source : URINE ID # : [id number] FINAL Report Date : / / : [...] Ticar/K Clav'ate for gram positives based on die fitter's breakpoints. ------- Tech : _ Source : URINE ID # : [id number] FINAL Report Date : / / : Collected : 08/24/19 22:53 08/27/19.50.JEAN-PAUL. 08/26/19.1013.BKO. SEND TO PHARMACY? NO 08/27/19.649.JEAN-PAUL.COMPLET E NO Normal [facility] Comment on above: Performed By: #### 2 03743 #### [facility],[address] [place] [address] URINALYSIS WITH MICROSCOPYon 08-25-2019 Amorphous NONE Normal [facility] Comment on above: Performed By: #### 2 01119 #### [facility],[address] [place] [address] Bacteria LM.HPF (Urine sed) [#/Area] 4+ Normal [facility] Comment on above: Performed By: #### 2 05245 #### [facility],[address] [place] [address] Bilirubin [Mass/Vol] Negative Normal NORMAL: NEGATIVE [facility] Comment on above: Performed By: #### 2 06424 #### [facility],[address] [place] [address] Blood 50 Abnormal NORMAL: NEGATIVE [facility] Comment on above: Performed By: #### 2 31901 #### [facility],[address] [place] [address] Casts LM.LPF (Urine sed) [#/Area] NONE Normal [facility] Comment on above: Performed By: #### 2 79108 #### [facility],[address] [place] [address] Clarity (U) clear Normal NORMAL: CLEAR [facility] Comment on above: Performed By: #### 2 28996 #### [facility],[address] [place] [address] Color (U) yellow Normal NORMAL: YELLOW [facility] Comment on above: Performed By: #### 2 70717 #### [facility],[address] [place] [address] Crystals LM Nom (Urine sed) NONE Normal [facility] Comment on above: Performed By: #### 2 58181 #### [facility],[address] [place] [address] Epi Cells OCC Normal [facility] Comment on above: Performed By: #### 2 26111 #### [facility],[address] [place] [place] [address] 92485 Glucose [Mass/Vol] NORM Normal NORMAL: NORMAL [facility] Comment on above: Performed By: #### 2 84207 #### [facility],[address] [place] [address] 06397 Ketone 50 Abnormal NORMAL: NEGATIVE [facility] Comment on above: Performed By: #### 2 45592 #### [facility],[address] [place] [address] 94577 Mucous 1+ Normal [facility] Comment on above: Performed By: #### 2 20180 #### [facility],[address] [place] [address] 68859 Nitrite Ql (U) Negative Normal NORMAL: NEGATIVE [facility] Comment on above: Performed By: #### 2 54403 #### [facility],[address] [place] [address] 10530 pH (Bld) 6 Normal NORMAL: 5.0-8.0 [facility] Comment on above: Performed By: #### 2 08103 #### [facility],[address] [place] [address] 48399 Protein (U) [Mass/Vol] 100 mg/dL Abnormal NORMAL: NEGATIVE [facility] Comment on above: Performed By: #### 2 18460 #### [facility],[address] [place] [address] 48223 Rbc 5-10 Normal 0-3 / hpf [facility] Comment on above: Performed By: #### 2 96123 #### [facility],[address] [place] [address] 89551 Sp [place] 1.015 Normal NORMAL: 1.010-1.030 [facility] Comment on above: Performed By: #### 2 17931 #### [facility],[address] [place] [address] Specimen type Nom (Spec) UNSPECIFIED Normal [facility] Comment on above: Performed By: #### 2 62965 #### [facility],[address] [place] [address] URINALYSIS WITH MICROSCOPY Normal [facility] Comment on above: Result Comment: URIN ALYSIS Performed By: #### 2 07736 #### [facility],[address] [place] [address] Urobilinog NORM Normal NORMAL: NORMAL [facility] Comment on above: Performed By: #### 2 39598 #### [facility],[address] [place] [address] Wbc 26-50 Normal 0-5 / hpf [facility] Comment on above: Performed By: #### 2 37977 #### [facility],[address] [place] [address] WBC (Bld) [#/Vol] 100 Abnormal NORMAL: NEGATIVE [facility] Comment on above: Result Comment: URIN E MICROSCOPIC Performed By: #### 2 67257 #### [facility],[address] [place] [address] Yeast LM Ql (Urine sed) NONE Normal [facility] Comment on above: Performed By: #### 2 02545 #### [facility],[address] [place] [address] Main OR Intraop Recordon Main OR Intraop Record Normal [facility] [place] Procedure Noteon 07-04-2017 Anesthesiology Consultation Normal [facility] Anesthesiology Consultation Normal [facility] Discharge Summaryon 07-01-19 Discharge Summary Normal [facility] Procedure Noteon 06-30-2017 Procedure Note Normal [facility] Non-Wall Cleaner Cytology Reporton Non-Wall Cleaner Cytology Report . Pathology ReportsAccession: Collected Date/Time: Received Date/Time: Pathologist:[id number] 06/28/2017 09:20 EDT 06/28/2017 11:39 EDT MD MANDY NUNES Non-Wall Cleaner Cytology ReportCLINICAL INFORMATION:DILATED COMMON BILE DUCTDIAGNOSIS:NEGATIVE FOR MALIGNANCYCOMMENT:SPARSEL Y CELLULAR SPECIMEN.SPECIMEN:BILIARY STENTGROSS DESCRIPTION:# of Monolayers: 1 # of Blocks:1Volume (ml) 10 Color: FIXED YELLOW FLUID WITH STENTElectronically Signed byPathology report verified by [facility] Healthcreened by: ART MGSElectronically signed by MANDY NUNES MDSign-Out Date: 06/29/2017 10:30Performing Lab: [address] Normal [facility] Comment on above: Performed By: #### P LT, APTT, PRO ####[place] [address] APTTon 06-28-2017 aPTT Unknown Normal [facility] Comment on above: Performed By: #### P LT, APTT, PRO ####[place] [address] aPTT 27.1 s Normal 25.0-35.0 [facility] Comment on above: Result Comment: For Heparin anticoagulation therapy, the recommendedtherapeutic range is: 54-77 seconds (APTT Correlationwith Anti-Xa therapeutic range of 0.3-0.7 units/ml).PLEASE REFERENCE THE PHARMACY PROTOCOL FOR DOSING. Performed By: #### P LT, APTT, PRO ####[place] [address] Depart Summaryon 06-28-2017 Depart Summary Normal [facility] Outpatient Patient Summaryon 06-28-2017 Outpatient Patient Summary Normal [facility] PLTon 06-28-2017 Platelets 285 10 3/mcL Normal 150-450 [facility]) Comment on above: Performed By: #### P LT, APTT, PRO ####[place] [address] PROon 06-28-2017 INR Coag RelTime (PPP) 0.9 {INR} Normal [facility] Comment on above: Result Comment: [employer] (CHEST, 1992, 102:312S-25S)recommended therapeutic range for oral anticoagulant therapy is:LOW RISK: Prophylaxis of venous thrombosis INR: 2.0-3.0 Treatment of pulmonary embolism 2.0-3.0 Prevention of systemic embolism 2.0-3.0HIGH RISK: Mechanical prosthetic valves 2.5-3.5 Performed By: #### P LT, APTT, PRO ####[place] [address] [place], [place] [address] Prothrombin time (PT) Coag time (PPP) 10.1 s Normal 9.0-14.5 [facility] Comment on above: Result Comment: Effe ctive 09/26/07, Protime results may be affected by some antibiotics (i.e. Ciprofloxacin, Azithromycin, Bactrim) which may potentiate the action of oral anticoagulants, with further increases in Protime/INR. Performed By: #### P LT, APTT, PRO ####[place] [address] [place] [address] 63552 Pat Eduon 06-28-2017 Pat Edu Normal [facility] Procedure Noteon 06-28-2017 Procedure Note Normal [facility] Procedure Note Normal [facility] XR ERCP BILIARY AND PANCREAT IC [...] AM Sign Date: 06/28/2017 10:37:52 AM Normal [facility] Discharge Summaryon 03-18-19 18 Discharge Summary Normal [facility] Procedure Noteon 03-18-2017 Procedure Note Normal [facility] XR ERCP BILIARY AND PANCREAT IC [...] PM Sign Date: 03/16/2017 2:42:45 PM Normal [facility]) APTTon 03-15-2017 aPTT 28.6 s Normal 25.0-35.0 [facility]) Comment on above: Result Comment: For Heparin anticoagulation therapy, the recommendedtherapeutic range is: 54-77 seconds (APTT Correlationwith Anti-Xa therapeutic range of 0.3-0.7 units/ml).PLEASE REFERENCE THE PHARMACY PROTOCOL FOR DOSING. Performed By: #### P LT, APTT, PRO ####[place] [address] aPTT Unknown Normal [facility]) Comment on above: Performed By: #### P LT, APTT, PRO ####[place] [address] Depart Summaryon 03-15-2017 Depart Summary Normal [facility]) Main OR Intraop Recordon Main OR Intraop Record Normal [facility]) Outpatient Patient Summaryon 03-15-2017 Outpatient Patient Summary Normal [facility]) PLTon 03-15-2017 Platelets 304 10 3/mcL Normal 150-450 [facility]) Comment on above: Performed By: #### P LT, APTT, PRO ####[place] [address] PROon 03-15-2017 INR Coag RelTime (PPP) 0.9 {INR} Normal [facility] Comment on above: Result Comment: [employer] (CHEST, 1992, 102:312S-25S)recommended therapeutic range for oral anticoagulant therapy is:LOW RISK: Prophylaxis of venous thrombosis INR: 2.0-3.0 Treatment of pulmonary embolism 2.0-3.0 Prevention of systemic embolism 2.0-3.0HIGH RISK: Mechanical prosthetic valves 2.5-3.5 Performed By: #### P LT, APTT, PRO ####[place] [address] [place] [address] 08878 Prothrombin time (PT) Coag time (PPP) 10.2 s Normal 9.0-14.5 [facility] Comment on above: Result Comment: Effe ctive 09/26/07, Protime results may be affected by some antibiotics (i.e. Ciprofloxacin, Azithromycin, Bactrim) which may potentiate the action of oral anticoagulants, with further increases in Protime/INR. Performed By: #### P LT, APTT, PRO ####[place] [address] [place] [address] 76810 EMERGENCY REPORTon 11-24-201 7 EMERGENCY REPORT [facility] EMERGENCY ROOM REPORT NAME NUMBER SEX AGE ADMIT DISC TYPE MED.RECORD# ESTHER CHAWLA [id number] F 81 12/07/2016 12/07/2016 Giuseppe [id number] ROOM:ER DATE OF :1935 PHYSICIAN NO.:[id number] PHYSICIAN NAME: PHYSICIAN:Aurelio Torre D.O. HISTORY OF [...] day. EMERGENCY ROOM REPORT ESTHER CHAWLA 1 [facility] EMERGENCY ROOM REPORT NAME NUMBER SEX AGE ADMIT DISC TYPE MED.RECORD# ESTHER CHAWLA [id number] F 81 12/07/2016 12/07/2016 TheronROmer [id number] ROOM:ER DATE OF :1935 PHYSICIAN NO.:[id number] PHYSICIAN NAME: PHYSICIAN:Aurelio Torre D.O. D: Aurelio Torre D.O. TD: 12/07/2016 19:54:49 JOB #: [id number] DR. AURELIO TORRE EMERGENCY DEPARTMENT 02/04/17 20:10 Transcribed by: NMT 12/07/2016 19:54:49 Copy for: KAMRAN Barriga DO Copy for: PRANAV FERGUSON MD EMERGENCY ROOM REPORT ESTHER CHAWLA 2 Normal [facility] MR ABDOMEN W //T// W/O CONTR Ailyn 01-17-2017 MR ABDOMEN W //T// W/O CONTRAST [place] [address] Patient: ESTHER CHAWLA Phone#: : 1935 Age: 81 Gender: F Pt. Type: Out Account: [id number] Location: 052 Ordering: TIERRA KLEIN Exam Date: 01/17/2017/8:22 Family Phys: Charge Code: [id number] Physician: Whitley Order #: [id number] DLP Dose#: PROCEDURE: MRI ABDOMEN WITH AND WITHOUT CONTRST COMPARISON: [facility], CT, LUMBAR SPINE W/O CON, 01/09/2017, 19:50. [...] 81 Gender: F Pt. Type: Out Account: [id number] Location: 2 Ordering: TIERRA KLEIN Exam Date: 01/17/2017/8:22 Family Phys: Charge Code: [id number] Physician: Whitley Order #: [id number] DLP Dose#: CONCLUSION: 1. There is dilatation [...] Baugh MD on 01/17/2017 at 17:09 Normal [facility] BMP with eGFRon 01-14-2017 Age 81 years Normal [facility] Comment on above: Performed By: #### 2 02517 ####[facility],[address] [place] [address] Anion gap 12 mmol/L Normal - 20 [facility] Comment on above: Performed By: #### 2 72946 ####[facility],[address] [place] [address] 89058 Calcium 9.0 mg/dL Normal 8.6 - 10.2 [facility] Comment on above: Performed By: #### 2 97637 ####[facility],[address] [place], [place] [address] Chloride 107 mmol/L Normal 98 - 107 [facility] Comment on above: Performed By: #### 2 79309 ####[facility],[address] [place] [address] 28950 CO2 26.8 mmol/L Normal 21.0 - 31.0 [facility] Comment on above: Performed By: #### 2 21620 ####[facility],[address] [place], [place] [address] Creatinine 0.6 mg/dL Normal 0.6 - 1.2 [facility] Comment on above: Performed By: #### 2 16951 ####[facility],[address] [place] [address] 06709 eGFR (non-black) mL/min/{1.73_m2} Normal 60 - 999 [facility] Comment on above: Performed By: #### 2 86950 ####[facility],[address] [place] [address] 51764 Result Comment: ACCO RDING TO THE NATIONAL KIDNEY DISEASE EDUCATION PROGRAM(NKDE), A NORMAL eGFRIS A VALUE GREATER THAN OR EQUAL TO 60 ML/MIN/1.73 SQ METERS.CHRONIC KIDNEY DISEASE: <60mL/MIN/1.73 SQ METERSKIDNEY FAILURE: <15mL/MIN/1.73 SQ METERSTHIS TEST SHOULD ONLY BE USED FOR PATIENTS 18 YEARS OF AGE AND OLDER. eGFR (non-black) Normal [facility] Comment on above: Result Comment: BASI C METABOLIC PANEL Performed By: #### 2 23244 ####[facility],[address] [place], [place] [address] Glucose mass conc 87 mg/dL Normal 74 - 106 [facility] Comment on above: Performed By: #### 2 91261 ####[place] [id number] Potassium molar conc 3.7 mmol/L Normal 3.5 - 5.1 [facility] Comment on above: Performed By: #### 2 23395 ####[facility],[address] [place] [address] Sodium 142 mmol/L Normal 136 - 145 [facility] Comment on above: Performed By: #### 2 78473 ####[place] [address] Urea nitrogen 16 mg/dL Normal 6 - 20 [facility] Comment on above: Performed By: #### 2 63519 ####[place] [address] EMERGENCY REPORTon 7 EMERGENCY REPORT [facility] EMERGENCY ROOM REPORT NAME NUMBER SEX AGE ADMIT DISC TYPE MED.RECORD# ESTHER CHAWLA [id number] F 81 01/09/2017 01/09/2017 Giuseppe [id number] ROOM:ER DATE OF :1935 PHYSICIAN NO.:[id number] PHYSICIAN NAME:Tierra Klein PHYSICIAN:KRISHAN ESPANA HISTORY OF [...] KRISHAN ESPANA TD: 01/10/2017 00:46:03 JOB #: [id number] DOLORES Espana D.O. Emergency Department 01/11/17 04:05 Transcribed by: NMAnmol 01/10/2017 00:46:03 EMERGENCY ROOM REPORT ESTHER CHAWLA 1 [facility] EMERGENCY ROOM REPORT NAME NUMBER SEX AGE ADMIT DISC TYPE MED.RECORD# ESTHER CHAWLA [id number] F 81 01/09/2017 01/09/2017 Giuseppe [id number] ROOM:ER DATE OF :1935 PHYSICIAN NO.:[id number] PHYSICIAN NAME:Tierra Klein PHYSICIAN:KRISHAN ESPANA Copy for: STEVEN Barriga III Copy for: ERNIE MAYORGA MD EMERGENCY ROOM REPORT ESTHER CHAWLA [address] [facility] CT LUMBAR W/O CONTRASTon CT LUMBAR W/O CONTRAST [address] [address] Patient: ESTHER CHAWLA Phone#: : 1935 Age: 81 Gender: F MRN: Pt. Type: ER Account: [id number] Location: 052 Ordering: [facility] Exam Date: 01/09/2017/19:50 Family Phys: TIERRA KLEIN Charge Code: [id number] Physician: Whitley Order #: [id number] DLP Dose#: 12.00 PROCEDURE: CT LUMBAR SPINE WITHOUT CONTRAST COMPARISON: [facility], XR, LUMBAR SPINE COMPLETE, 01/09/2017, 19:01. INDICATIONS: [...] Gender: F MRN: Pt. Type: ER Account: [id number] Location: 052 Ordering: [facility] Exam Date: 01/09/2017/19:50 Family Phys: TIERRA KLEIN Charge Code: [id number] Physician: Whitley Order #: [id number] DLP Dose#: 12.00 LUMBAR DISC LEVELS: L1-L2: [...] Rich MD on 01/09/2017 at 20:18 Normal [facility] LUMBO SACRAL COMPLETE MIN 4 VIEWSon 01-09-2017 LUMBO SACRAL COMPLETE MIN 4 VIEWS [place] [address] Patient: ESTHER CHAWLA Phone#: : 1935 Age: 81 Gender: F Pt. Type: ER Account: [id number] Location: 052 Ordering: KRISHAN ESPANA Exam Date: 01/09/2017/19:01 Family Phys: TIERRA KLEIN Charge Code: [id number] Physician: Whitley Order #: [id number] DLP Dose#: PROCEDURE: X-RAY LUMBAR SPINE COMPLETE [...] Caitlyn Rich MD on 01/09/2017 at 19:[address] [facility] PELVIS 1 or 2 VIEWSon 2016 [place] [address] Patient: ESTHER CHAWLA. Phone#: : 1935 Age: 81 Gender: F Pt. Type: ER Account: [id number] Location: [facility] Ordering: KRISHAN ESPANA Exam Date: 01/09/2017/19:04 Family Phys: TIERRA KLEIN Charge Code: [id number] Physician: Whitley Order #: [id number] DLP Dose#: PROCEDURE: X-RAY PELVIS AP COMPARISON: [...] Rich MD on 01/09/2017 at 19:48 Normal [facility] EMERGENCY REPORTon 01-01-201 7 EMERGENCY REPORT [facility] EMERGENCY ROOM REPORT NAME NUMBER SEX AGE ADMIT DISC TYPE MED.RECORD# CAMMY ESTHER Hermes [id number] F 81 12/28/2016 12/28/2016 Giuseppe [id number] ROOM:ER DATE OF :1935 PHYSICIAN NO.:[id number] PHYSICIAN NAME:Tierra Klein PHYSICIAN:TOMA LUGO DO TIME [...] LUGO DO TD: 12/31/2016 00:00:26 JOB #: [id number] E-SIGN TOMA LUGO EMERGENCY DEPARTMENT 01/01/17 02:01 Transcribed by: NMT 12/31/2016 00:00:26 Copy for: BRITTNEY CHUA DO Copy for: ERNIE MAYORGA MD EMERGENCY ROOM REPORT ESHTER CHAWLA 1 Normal [facility] CT BRAIN W/O CONTRASTon 11-13 CT BRAIN W/O CONTRAST [place] [address] Patient: ESTHER CHAWLA Phone#: : 1935 Age: 81 Gender: F Pt. Type: ER Account: [id number] Location: [facility] Ordering: AURELIO TORRE Exam Date: 12/07/2016/1:58 Family Phys: TALABHISAS Charge Code: [id number] Physician: Whitley Order #: [id number] DLP Dose#: 57.50 PROCEDURE: CT BRAIN WITHOUT [...] portions of left maxillary sinus. ORBITS: The [place]im[place] ocular lenses are absent. Continued Report - Page 2 of 2 Patient: ESTHER CHAWLA Phone#: : 1935 Age: 81 Gender: F Pt. 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 CONCLUSION: 1. No appreciable acute intracranial abnormality. Dictated by: Caitlyn Rich MD on 12/07/2016 at 10:05 Approved by: Caitlyn Rich MD on 12/07/2016 at 10:05 Normal [facility] CT CERVICAL W/O CONTRASTon 0 12-07-2016 CT CERVICAL W/O CONTRAST [place] [address] Patient: ESTHER CHAWLA Phone#: : 1935 Age: 81 Gender: F Pt. Type: ER Account: [id number] Location: 052 Ordering: AURELIO LinusOmer KAMRAN Exam Date: 12/07/2016/1:58 Family Phys: TALAMYSAS Charge Code: [id number] Physician: Whitley Order #: [id number] DLP Dose#: 6.50 PROCEDURE: CT CERVICAL WITHOUT CONTRAST COMPARISON: [facility], CT, CHEST PE W CON, 12/06/2013, 19:22. [...] 81 Gender: F Pt. Type: ER Account: [id number] Location: [facility] Ordering: AURELIO TORRE Exam Date: 12/07/2016/1:58 Family Phys: CARROL Charge Code: 013139 Physician: Whitley Order #: [id number] DLP Dose#: 6.50 CERVICAL DISC LEVELS: C2-C3: [...] Rich MD on 12/07/2016 at 10:20 Normal [facility] CT FACIAL BONES W/O CONTRAST on 12-07-2016 CT FACIAL BONES W/O CONTRAST [address] [address] Patient: ESTHER CHAWLA Phone#: : 1935 Age: 81 Gender: F Pt. Type: ER Account: [id number] Location: 052 Ordering: AURELIO Theron KAMRAN Exam Date: 12/07/2016/1:58 Family Phys: TALAMYSAS Charge Code: [id number] Physician: Whitley Order #: [id number] DLP Dose#: 30.50 PROCEDURE: CT FACIAL BONES [...] Normal. No mass or bone destruction. ORBITS: [place] ocular lenses are absent. No orbital wall fracture. CAVERNOUS SINUS: Symmetric appearance with no visible lesion. SALIVARY GLANDS: Normal. The parotid and submandibular glands are unremarkable. Continued Report - Page 2 of 2 Patient: ESTHER CHAWLA Phone#: : 1935 Age: 81 Gender: F MRN: Pt. Type: ER Account: [id number] Location: 052 Ordering: AURELIO Crump KAMRAN Exam Date: 12/07/2016/1:58 Family Phys: TALAMYSAS Charge Code: 295021 Physician: Whitley Order #: [id number] DLP Dose#: 30.50 OTHER: Normal. The nasopharynx, [...] Rich MD on 12/07/2016 at 10:30 Normal [facility] EMERGENCY REPORTon 7 EMERGENCY REPORT [facility] EMERGENCY ROOM REPORT NAME NUMBER SEX AGE ADMIT DISC TYPE MED.RECORD# ESTHER CHAWLA [id number] F 80 11/17/2016 11/17/2016 Giuseppe [id number] ROOM: DATE OF :1935 PHYSICIAN NO.: PHYSICIAN [...] KRISHAN ESPANA TD: 11/18/2016 06:32:48 JOB #: [id number] DOLORES [place] D.O. Emergency Department 11/21/16 19:29 Transcribed by: NMT 11/18/2016 06:32:48 Copy for: STEVEN Barriga III Copy for: PRANAV FERGUSON MD EMERGENCY ROOM REPORT ESTHER CHAWLA 1 Normal [facility] EMERGENCY REPORTon 7 EMERGENCY REPORT [facility] EMERGENCY ROOM REPORT NAME NUMBER SEX AGE ADMIT DISC TYPE MED.RECORD# ESTHER CHAWLA [id number] F 80 11/09/2016 E.ROmer [id number] ROOM:ER DATE OF :1935 PHYSICIAN NO.: PHYSICIAN [...] KRISHAN ESPANA TD: 11/09/2016 19:03:13 JOB #: [id number] Krishan [place] D.O. Emergency Department 11/12/16 09:58 Transcribed by: NMAnmol 11/09/2016 19:03:13 Copy for: STEVEN Barriga III Copy for: PRANAV FERGUSON MD EMERGENCY ROOM REPORT ESTHER CHAWLA 1 Normal [facility] CBCon 11-09-2016 Basophils Auto #/vol (Bld) 0.10 x10EE3/UL Normal 0.00 - 0.10 [facility] Comment on above: Performed By: #### 2 25998 ####[place] [address] Basophils/100 WBC Auto (Bld) 1.0 % Normal 0.0 - 2.0 [facility] Comment on above: Performed By: #### 2 23818 ####[place] [address] Blood morphology N/A Normal [facility] Comment on above: Result Comment: {CD] Performed By: #### 2 72377 ####[place] [address] CBC Normal [facility] Comment on above: Result Comment: CBC- COMPLETE BLOOD COUNT Performed By: #### 2 64513 ####[facility],[address] [place] [address] Eosinophils 0.10 x10EE3/UL Normal 0.00 - 0.50 [facility] Comment on above: Performed By: #### 2 10411 ####[facility],[address] [place] [address] Eosinophils/100 leukocytes 1.6 % Normal 0.0 - 7.0 [facility] Comment on above: Performed By: #### 2 66889 ####[facility],[address] [place] [address] Erythrocyte distribution width Auto Ratio (RBC) 12.9 % Normal 12.0 - 15.6 [facility] Comment on above: Performed By: #### 2 66618 ####[facility],[address] [place] [address] Erythrocytes (RBC) 3.76 x 10EE6/UL Low 4.10 - 5.30 [facility] Comment on above: Performed By: #### 2 56389 ####[facility],[address] [place] [address] Hematocrit (HCT) 33.4 % Low 34.0 - 46.0 [facility] Comment on above: Performed By: #### 2 59774 ####[facility],[address] [place] [address] Hemoglobin mass conc (Bld) 10.9 g/dL Low 12.0 - 16.0 [facility] Comment on above: Performed By: #### 2 56780 ####[facility],[address] [place], [place] [address] Lymphocytes 2.40 x10EE3/UL Normal 0.80 - 2.80 [facility] Comment on above: Performed By: #### 2 45211 ####[facility],[address] [place] [address] Lymphocytes/100 leukocytes 38.4 % Normal 20.0 - 45.0 [facility] Comment on above: Performed By: #### 2 23963 ####[facility],[address] [place] [address] MANUAL DIFF N/A Normal [facility] Comment on above: Performed By: #### 2 90392 ####[facility],[address] [place] [address] MCH 29 pg Normal 27 - 33 [facility] Comment on above: Performed By: #### 2 07487 ####[facility],[address] [place] [address] MCHC mass conc (RBC) 33 X10 3 Normal 32 - 36 [facility] Comment on above: Performed By: #### 2 62857 ####[facility],[address] [place] [address] MCV 89 fL Normal 80 - 99 [facility] Comment on above: Performed By: #### 2 63281 ####[facility],[address] [place] [address] 97737 Monocytes 0.70 x10EE3/UL Normal 0.20 - 1.00 [facility] Comment on above: Performed By: #### 2 55870 ####[facility],[address] [place] [address] MONOS % 11.7 % High 0.0 - 10.0 [facility] Comment on above: Performed By: #### 2 57793 ####[place] [id number] Neutrophils 2.90 x10EE3/UL Normal 1.50 - 7.10 [facility] Comment on above: Performed By: #### 2 95343 ####[facility],[address] [place] [address] 31969 Neutrophils/100 WBC Auto (Bld) 47.3 % Normal 46.0 - 76.0 [facility] Comment on above: Performed By: #### 2 20062 ####[facility],[address] [place] [address] 13477 Platelet mean volume (PMV) 7.7 fL Normal 6.6 - 10.5 [facility] Comment on above: Result Comment: AUTO MATED DIFFERENTIAL Performed By: #### 2 61751 ####[facility],[address] [place] [address] 43625 Platelets 266 x10EE3/UL Normal 150 - 450 [facility] Comment on above: Performed By: #### 2 84633 ####[facility],[address] [place] [address] 87472 WBC (Leukocytes) 6.1 x 10EE3/UL Normal 4.5 - 10.8 [facility] Comment on above: Performed By: #### 2 69048 ####[facility],[address] [place] [address] 36636 CMP with eGFRon 11-09-2016 Age 80 years Normal [facility] Comment on above: Performed By: #### 2 04875 ####[facility],[address] [place] [address] 40301 Albumin 3.9 g/dL Normal 3.4 - 4.8 [facility] Comment on above: Performed By: #### 2 35412 ####[facility],[address] [place] [address] 74131 Albumin/Globulin Ratio 1.7 {ratio} High 0.9 - 1.6 [facility] Comment on above: Performed By: #### 2 68040 ####[address] [address] ALK PHOS 75 U/L Normal 38 - 126 [facility] Comment on above: Performed By: #### 2 79706 ####[address] [address] ALT/SGPT 16 U/L Normal 8 - 35 [facility] Comment on above: Performed By: #### 2 14045 ####[facility],[address] [place] [address] 96258 Anion gap 9 mmol/L Low 10 - 20 [facility] Comment on above: Performed By: #### 2 02056 ####[facility],[address] [place] [address] 21975 AST/SGOT 17 U/L Normal 13 - 39 [facility] Comment on above: Performed By: #### 2 01038 ####[facility],[address] [place] [address] 98374 B/C RATIO 18 ratio Normal 0 - 30 [facility] Comment on above: Performed By: #### 2 51722 ####[facility],[address] [place] [address] 95170 Bilirubin (total) 0.2 mg/dL Normal 0.0 - 1.5 [facility] Comment on above: Performed By: #### 2 68431 ####[facility],[address] [place] [address] 54166 Calcium 8.8 mg/dL Normal 8.6 - 10.2 [facility] Comment on above: Performed By: #### 2 08774 ####[facility],[address] [place] [address] 80254 Chloride 105 mmol/L Normal 98 - 107 [facility] Comment on above: Performed By: #### 2 27520 ####[facility],[address] [place] [address] 87792 CO2 29.1 mmol/L Normal 21.0 - 31.0 [facility] Comment on above: Performed By: #### 2 01189 ####[facility],[address] [place] [address] 58610 Creatinine 0.6 mg/dL Normal 0.6 - 1.2 [facility] Comment on above: Performed By: #### 2 59604 ####[facility],[address] [place] [address] 84051 eGFR (non-black) Normal [facility] Comment on above: Result Comment: COMP REHENSIVE METABOLIC PANEL Performed By: #### 2 37074 ####[facility],[address] [place] [address] 29758 eGFR (non-black) mL/min/{1.73_m2} Normal 60 - 999 [facility] Comment on above: Result Comment: ACCO RDING TO THE NATIONAL KIDNEY DISEASE EDUCATION PROGRAM(NKDE), A NORMAL eGFRIS A VALUE GREATER THAN OR EQUAL TO 60 ML/MIN/1.73 SQ METERS.CHRONIC KIDNEY DISEASE: <60mL/MIN/1.73 SQ METERSKIDNEY FAILURE: <15mL/MIN/1.73 SQ METERSTHIS TEST SHOULD ONLY BE USED FOR PATIENTS 18 YEARS OF AGE AND OLDER. Performed By: #### 2 39007 ####[facility],[address] [place] [address] 18881 Globulin 2.3 g/dL Normal 1.5 - 3.8 [facility] Comment on above: Performed By: #### 2 86182 ####[facility],[address] [place] [address] 79182 Glucose mass conc 77 mg/dL Normal 74 - 106 [facility] Comment on above: Performed By: #### 2 14245 ####[facility],[address] [place] [address] 74420 Potassium molar conc 4.1 mmol/L Normal 3.5 - 5.1 [facility] Comment on above: Performed By: #### 2 42496 ####[facility],[address] [place] [address] 45152 Protein 6.2 g/dL Low 6.4 - 8.3 [facility] Comment on above: Performed By: #### 2 06180 ####[facility],[address] [place] [address] 22375 Sodium 139 mmol/L Normal 136 - 145 [facility] Comment on above: Performed By: #### 2 82369 ####[facility],[address] [place] [address] 67947 Urea nitrogen 11 mg/dL Normal 6 - 20 [facility] Comment on above: Performed By: #### 2 13942 ####[facility],[address] [place] [address] 98259 EMERGENCY REPORTon EMERGENCY REPORT [facility] EMERGENCY ROOM REPORT NAME NUMBER SEX AGE ADMIT DISC TYPE MED.RECORD# ESTHER CHAWLA [id number] F [id number] 09/20/2016 E.ROmer [id number] ROOM:ER DATE OF :1935 PHYSICIAN NO.:[id number] PHYSICIAN NAME: PHYSICIAN:Mandy Torres DO CHIEF COMPLAINT: [...] Torres DO TD: 09/20/2016 13:14:52 JOB #: [id number] MANDY TORRES DO EMERGENCY DEPARTMENT 10/31/16 07:40 Transcribed by: CHUY 09/20/2016 13:14:52 Copy for: ZEINA Mancuso DO Copy for: ERNIE MAYORGA MD EMERGENCY ROOM REPORT CAMMYESTHER Hermes 1 Normal [facility] EMERGENCY REPORT [facility] EMERGENCY ROOM REPORT NAME NUMBER SEX AGE ADMIT DISC TYPE MED.RECORD# ESTHER CHAWLA [id number] F 80 09/20/2016 09/20/2016 Giuseppe [id number] ROOM:ER DATE OF :1935 PHYSICIAN NO.:[id number] PHYSICIAN NAME:Tierra Klein PHYSICIAN:Mandy Trores DO CHIEF COMPLAINT: The patient is a [...] cardiac catheterization. The patient was transferred to [place]. The patient was received by Cardiology, Dr. [...] further questions. EMERGENCY ROOM REPORT ESTHER CHAWLA [address] [place] [address] EMERGENCY ROOM REPORT NAME NUMBER SEX AGE ADMIT DISC TYPE MED.RECORD# ESTHER CHAWLA [id number] F 80 09/20/2016 09/20/2016 Linus.ROmer [id number] ROOM:ER DATE OF :1935 PHYSICIAN NO.:[id number] PHYSICIAN NAME:Tierra Klein PHYSICIAN:Mandy Torres DO D: Mandy Torres DO TD: 09/20/2016 20:00:03 JOB #: [id number] MANDY TORRES DO EMERGENCY DEPARTMENT 10/31/16 07:40 Transcribed by: NMT 09/20/2016 20:00:03 Copy for: ZEINA Mancuso DO Copy for: ERNIE MAYORGA MD EMERGENCY ROOM REPORT CAMMYESTHER M 2 Normal [facility] Discharge Note-Nursingon Discharge Note-Nursing Normal [facility] History and Physical (Blank) on 09-21-2016 History and Physical (Blank) Normal [facility] APTTon 09-20-2016 aPTT 24.5 s Normal 21.6 - 35.4 [facility] Comment on above: Performed By: #### 2 03528 ####[facility],[address] [place] [address] BNP (B-TYPE NATRIURETIC PEPT [place])on 09-20-2016 BNP 81 pg/mL Normal 1 - 100 [facility] Comment on above: Performed By: #### 2 58618 ####[facility],[address] [place] [address] CBCon 09-20-2016 Basophils Auto #/vol (Bld) 0.10 x10EE3/UL Normal 0.00 - 0.10 [facility] Comment on above: Performed By: #### 2 07572 ####[facility],[address] [place], [place] [id number] Basophils/100 WBC Auto (Bld) 0.9 % Normal 0.0 - 2.0 [facility] Comment on above: Performed By: #### 2 13561 ####[facility],[address] [place] [address] 64386 Blood morphology N/A Normal [facility] Comment on above: Performed By: #### 2 64933 ####[facility],[address] [place] [address] CBC Normal [facility] Comment on above: Result Comment: CBC- COMPLETE BLOOD COUNT Performed By: #### 2 69088 ####[facility],[address] [place] [address] 41098 Eosinophils 0.00 x10EE3/UL Normal 0.00 - 0.50 [facility] Comment on above: Performed By: #### 2 00784 ####[facility],[address] [place] [address] 67339 Eosinophils/100 leukocytes 0.3 % Normal 0.0 - 7.0 [facility] Comment on above: Performed By: #### 2 01154 ####[facility],[address] [place] [address] Erythrocyte distribution width Auto Ratio (RBC) 12.8 % Normal 12.0 - 15.6 [facility] Comment on above: Performed By: #### 2 95502 ####[facility],[address] [place] [address] Erythrocytes (RBC) 3.76 x 10EE6/UL Low 4.10 - 5.30 [facility] Comment on above: Performed By: #### 2 98314 ####[facility],[address] [place] [address] Hematocrit (HCT) 32.9 % Low 34.0 - 46.0 [facility] Comment on above: Performed By: #### 2 60306 ####[facility],[address] [place] [address] Hemoglobin mass conc (Bld) 11.0 g/dL Low 12.0 - 16.0 [facility] Comment on above: Performed By: #### 2 60212 ####[facility],[address] [place] [address] 74736 Lymphocytes 2.00 x10EE3/UL Normal 0.80 - 2.80 [facility] Comment on above: Performed By: #### 2 83910 ####[facility],[address] [place] [address] 18129 Lymphocytes/100 leukocytes 26.4 % Normal 20.0 - 45.0 [facility] Comment on above: Performed By: #### 2 29799 ####[facility],[address] [place] [address] MANUAL DIFF N/A Normal [facility] Comment on above: Performed By: #### 2 50758 ####[facility],[address] [place] [address] 75224 MCH 29 pg Normal 27 - 33 [facility] Comment on above: Performed By: #### 2 31476 ####[facility],[address] [place] [address] 92773 MCHC mass conc (RBC) 34 X10 3 Normal 32 - 36 [facility] Comment on above: Performed By: #### 2 96066 ####[facility],[address] [place] [address] 91409 MCV 88 fL Normal 80 - 99 [facility] Comment on above: Performed By: #### 2 71104 ####[facility],[address] [place] [address] 46023 Monocytes 0.70 x10EE3/UL Normal 0.20 - 1.00 [facility] Comment on above: Performed By: #### 2 27407 ####[facility],[address] [place] [address] 85445 MONOS % 9.1 % Normal 0.0 - 10.0 [facility] Comment on above: Performed By: #### 2 06609 ####[facility],[address] [place] [address] 66401 Neutrophils 4.70 x10EE3/UL Normal 1.50 - 7.10 [facility] Comment on above: Performed By: #### 2 61368 ####[facility],[address] [place] [address] 05816 Neutrophils/100 WBC Auto (Bld) 63.3 % Normal 46.0 - 76.0 [facility] Comment on above: Performed By: #### 2 62564 ####[facility],[address] [place] [address] 09045 Platelet mean volume (PMV) 7.5 fL Normal 6.6 - 10.5 [facility] Comment on above: Result Comment: AUTO MATED DIFFERENTIAL Performed By: #### 2 66844 ####[facility],[address] [facility] [address] Platelets 266 x10EE3/UL Normal 150 - 450 [facility] Comment on above: Performed By: #### 2 19682 ####[facility],[address] [facility] [address]002 WBC (Leukocytes) 7.5 x 10EE3/UL Normal 4.5 - 10.8 [facility] Comment on above: Performed By: #### 2 46825 ####[facility],[address] [place] [address] 03259 CHEST APon 09-20-2016 CHEST AP [facility] [address] [place] [address] 14835 Patient: ESTHER CHAWLA Phone#: : 1935 Age: 80 Gender: F Pt. Type: ER Account: [id number] Location: [facility] Ordering: MANDY TORRES Exam Date: 09/20/2016/12:09 Family Phys: ESVINABHIOREN Charge Code: [id number] Physician: Whitley Order #: [id number] DLP Dose#: PROCEDURE: X-RAY CHEST AP 1 VIEW COMPARISON: [facility], XR, CHEST PA/LAT, 12/06/2013, 17:13. INDICATIONS: Chest [...] Baugh MD on 09/20/2016 at 12:59 Normal [facility] CMP with eGFRon 09-20-2016 Age 80 years Normal [facility] Comment on above: Performed By: #### 2 36007 ####[facility],[address] [place] [address] 65016 Albumin 3.9 g/dL Normal 3.4 - 4.8 [facility] Comment on above: Performed By: #### 2 49972 ####[facility],[address] [place] [address] 29638 Albumin/Globulin Ratio 1.6 {ratio} Normal 0.9 - 1.6 [facility] Comment on above: Performed By: #### 2 60269 ####[facility],[address] [place] [address] 15901 ALK PHOS 72 U/L Normal 38 - 126 [facility] Comment on above: Performed By: #### 2 73690 ####[facility],[address] [place] [address] 45731 ALT/SGPT 16 U/L Normal 8 - 35 [facility] Comment on above: Performed By: #### 2 64747 ####[facility],[address] [place] [address] 47234 Anion gap 11 mmol/L Normal 10 - 20 [facility] Comment on above: Performed By: #### 2 96430 ####[facility],[address] [place] [address] 06349 AST/SGOT 19 U/L Normal 13 - 39 [facility] Comment on above: Performed By: #### 2 57270 ####[facility],[address] [place] [address] 12294 B/C RATIO 25 ratio Normal 0 - 30 [facility] Comment on above: Performed By: #### 2 08748 ####[facility],[address] [place] [address] 33968 Bilirubin (total) 0.4 mg/dL Normal 0.0 - 1.5 [facility] Comment on above: Performed By: #### 2 90071 ####[facility],[address] [place] [address] 76451 Calcium 8.7 mg/dL Normal 8.6 - 10.2 [facility] Comment on above: Performed By: #### 2 43784 ####[facility],[address] [place] [address] 99450 Chloride 106 mmol/L Normal 98 - 107 [facility] Comment on above: Performed By: #### 2 15113 ####[facility],[address] [place] [address] 67008 CO2 22.8 mmol/L Normal 21.0 - 31.0 [facility] Comment on above: Performed By: #### 2 46292 ####[facility],[address] [place] [address] 99250 Creatinine 0.6 mg/dL Normal 0.6 - 1.2 [facility] Comment on above: Performed By: #### 2 68817 ####[facility],[address] [place] [address] 64863 eGFR (non-black) mL/min/{1.73_m2} Normal 60 - 999 [facility] Comment on above: Result Comment: ACCO RDING TO THE NATIONAL KIDNEY DISEASE EDUCATION PROGRAM(NKDE), A NORMAL eGFRIS A VALUE GREATER THAN OR EQUAL TO 60 ML/MIN/1.73 SQ METERS.CHRONIC KIDNEY DISEASE: <60mL/MIN/1.73 SQ METERSKIDNEY FAILURE: <15mL/MIN/1.73 SQ METERSTHIS TEST SHOULD ONLY BE USED FOR PATIENTS 18 YEARS OF AGE AND OLDER. Performed By: #### 2 31349 ####[facility],[address] [place] [address] 20054 eGFR (non-black) Normal [facility] Comment on above: Result Comment: COMP REHENSIVE METABOLIC PANEL Performed By: #### 2 93053 ####[facility],[address] [place] [address] 55628 Globulin 2.5 g/dL Normal 1.5 - 3.8 [facility] Comment on above: Performed By: #### 2 60212 ####[address] [address] Glucose mass conc 92 mg/dL Normal 74 - 106 [facility] Comment on above: Performed By: #### 2 62252 ####[facility],[address] [place], [place] [address] Potassium molar conc 3.9 mmol/L Normal 3.5 - 5.1 [facility] Comment on above: Performed By: #### 2 61074 ####[facility],[address] [place], [place] [address] Protein 6.4 g/dL Normal 6.4 - 8.3 [facility] Comment on above: Performed By: #### 2 64304 ####[facility],[address] [place] [address] Sodium 136 mmol/L Normal 136 - 145 [facility] Comment on above: Performed By: #### 2 90935 ####[facility],[address] [place] [address] 39969 Urea nitrogen 15 mg/dL Normal 6 - 20 [facility] Comment on above: Performed By: #### 2 24907 ####[place] [address] CT CHEST (PE PROTOCOL)on CT CHEST (PE PROTOCOL) [place] [address] Patient: ESTHER CHAWLA Phone#: : 1935 Age: 80 Gender: F Pt. Type: ER Account: [id number] Location: [facility] Ordering: MANDY TORRES Exam Date: 09/20/2016/13:28 Family Phys: TALABHISAS Charge Code: [id number] Physician: Whitley Order #: [id number] DLP Dose#: 2.30 PROCEDURE: CT CHEST WITH CONTRAST FOR PE COMPARISON: [facility], CT, CHEST PE W CON, 12/06/2013, 19:22. [...] 80 Gender: F Pt. Type: ER Account: [id number] Location: [facility] Ordering: MANDY TORRES Exam Date: 09/20/2016/13:28 Family Phys: CARROL Charge Code: [id number] Physician: Whitley Order #: [id number] DLP Dose#: 2.30 BONES: Degenerative changes of [...] Baugh MD on 09/20/2016 at 14:08 Normal [facility] Depart Summaryon 09-20-2016 Depart Summary Normal [facility] Inpatient Patient Summaryon 09-20-2016 Inpatient Patient Summary Normal [facility] PROTHROMBIN TIME AND INRon 0 09-20-2016 INR Coag RelTime (Bld) Normal [facility] Comment on above: Result Comment: PROT HROMBIN TIME AND INR Performed By: #### 2 70389 ####[facility],[address] [place], [place] [address] INR Coag RelTime (PPP) 0.9 {INR} Normal 0.8 - 1.2 [facility] Comment on above: Result Comment: T HE [...] MECHANICAL HEART VALVES Performed By: #### 2 00299 ####[facility],[address] [place], [place] [id number] PT-COUMADIN 10.4 sec Normal [facility] Comment on above: Performed By: #### 2 36550 ####[facility],[address] [place], [place] [id number] TROPONINon 09-20-2016 Troponin I.cardiac mass conc ng/mL Normal 0.00 - 0.05 [facility] Comment on above: Result Comment: Elev ated [...] as heterophile antibodies). Performed By: #### 2 21908 ####[facility],[address] [facility] [address] Vital Signs Date Time Vital Sign Value Performing Clinician Facility 11-26-2023 11:00-0400 Body mass index (BMI) [Ratio] 19.92 kg/m2 Orestes Hooks APRN.BURNER MACHINE OPERATOR Work Phone: [facility] 11-26-2023 11:00-0400 Body temperature 97.81 [degF] Orestes Hooks APRN.BURNER MACHINE OPERATOR Work Phone: [facility] 11-26-2023 11:00-0400 Body weight 49.4 kg Orestes Hooks APRN.BURNER MACHINE OPERATOR Work Phone: [facility] 11-26-2023 11:00-0400 Diastolic blood pressure 70 mm[Hg] Orestes Hooks APRN.BURNER MACHINE OPERATOR Work Phone: [facility] 11-26-2023 11:00-0400 Heart rate 68 /min Orestes Hooks APRN.BURNER MACHINE OPERATOR Work Phone: [facility] 11-26-2023 11:00-0400 Respiratory rate 16 /min Orestes Hooks APRN.BURNER MACHINE OPERATOR Work Phone: [facility] 11-26-2023 11:00-0400 SaO2% (BldA) [Mass fraction] 99 % Orestes Hooks APRN.BURNER MACHINE OPERATOR Work Phone: [facility] 11-26-2023 11:00-0400 Systolic blood pressure 122 mm[Hg] Orestes Hooks APRN.BURNER MACHINE OPERATOR Work Phone: [facility] 06-08-2023 10:16-0400 Body temperature 97.11 [degF] Ronnie Moomaw ORTHOTIC TECHNICIAN.BURNER MACHINE OPERATOR Work Phone: [facility] 06-08-2023 10:16-0400 Body weight 46.4 kg Ronnie Moomaw ORTHOTIC TECHNICIAN.BURNER MACHINE OPERATOR Work Phone: [facility] 06-08-2023 10:16-0400 Diastolic blood pressure 78 mm[Hg] Ronnie Moomaw ORTHOTIC TECHNICIAN.BURNER MACHINE OPERATOR Work Phone: [facility] 06-08-2023 10:16-0400 Heart rate 63 /min Ronnie Moomaw ORTHOTIC TECHNICIAN.BURNER MACHINE OPERATOR Work Phone: [facility] 06-08-2023 10:16-0400 Respiratory rate 18 /min Ronnie Moomaw ORTHOTIC TECHNICIAN.BURNER MACHINE OPERATOR Work Phone: [facility] 06-08-2023 10:16-0400 SaO2% (BldA) [Mass fraction] 98 % Ronnie Moomaw ORTHOTIC TECHNICIAN.BURNER MACHINE OPERATOR Work Phone: [facility] 06-08-2023 10:16-0400 Systolic blood pressure 118 mm[Hg] Ronnie Moomaw ORTHOTIC TECHNICIAN.BURNER MACHINE OPERATOR Work Phone: [facility] 06-03-2023 12:57-0400 Body temperature 97.5 [degF] Dinora Klein ORTHOTIC TECHNICIAN.BURNER MACHINE OPERATOR Work Phone: [facility] 06-03-2023 12:57-0400 Body weight 46.2 kg Dinora Klein ORTHOTIC TECHNICIAN.BURNER MACHINE OPERATOR Work Phone: [facility] 06-03-2023 12:57-0400 Diastolic blood pressure 70 mm[Hg] Dinora Klein ORTHOTIC TECHNICIAN.BURNER MACHINE OPERATOR Work Phone: [facility] 06-03-2023 12:57-0400 Heart rate 70 /min Dinora Klein ORTHOTIC TECHNICIAN.BURNER MACHINE OPERATOR Work Phone: [facility] 06-03-2023 12:57-0400 Respiratory rate 18 /min Dinora Klein ORTHOTIC TECHNICIAN.BURNER MACHINE OPERATOR Work Phone: [facility] 06-03-2023 12:57-0400 SaO2% (BldA) [Mass fraction] 98 % Dinora Klein ORTHOTIC TECHNICIAN.BURNER MACHINE OPERATOR Work Phone: [facility] 06-03-2023 12:57-0400 Systolic blood pressure 125 mm[Hg] Dinora Klein ORTHOTIC TECHNICIAN.BURNER MACHINE OPERATOR Work Phone: [facility] 12-24-2022 18:37-0400 Body temperature 98.4 [degF] Tracey Valle ORTHOTIC TECHNICIAN.BURNER MACHINE OPERATOR Work Phone: [facility] 12-24-2022 18:37-0400 Body weight 45.81 kg Tracey Praisler-Wood ORTHOTIC TECHNICIAN.BURNER MACHINE OPERATOR Work Phone: [facility] 12-24-2022 18:37-0400 Diastolic blood pressure 78 mm[Hg] Tracey Praisler-Wood ORTHOTIC TECHNICIAN.BURNER MACHINE OPERATOR Work Phone: [facility] 12-24-2022 18:37-0400 Heart rate 84 /min Tracey Praisler-Wood ORTHOTIC TECHNICIAN.BURNER MACHINE OPERATOR Work Phone: [facility] 12-24-2022 18:37-0400 Respiratory rate 18 /min Tracey Praisler-Wood ORTHOTIC TECHNICIAN.BURNER MACHINE OPERATOR Work Phone: [facility] 12-24-2022 18:37-0400 SaO2% (BldA) [Mass fraction] 99 % Tracey Praisler-Wood ORTHOTIC TECHNICIAN.BURNER MACHINE OPERATOR Work Phone: [facility] 12-24-2022 18:37-0400 Systolic blood pressure 126 mm[Hg] Tracey Praisler-Wood ORTHOTIC TECHNICIAN.BURNER MACHINE OPERATOR Work Phone: [facility] 08-26-2022 14:03-0400 Body temperature 98.2 [degF] Tani Pendlebury ORTHOTIC TECHNICIAN.BURNER MACHINE OPERATOR Work Phone: [facility] 08-26-2022 14:03-0400 Body weight 45.9 kg Tani Pendlebury ORTHOTIC TECHNICIAN.BURNER MACHINE OPERATOR Work Phone: [facility] 08-26-2022 14:03-0400 Diastolic blood pressure 80 mm[Hg] Tani Pendlebury ORTHOTIC TECHNICIAN.BURNER MACHINE OPERATOR Work Phone: [facility] 08-26-2022 14:03-0400 Heart rate 88 /min Tani Pendlebury ORTHOTIC TECHNICIAN.BURNER MACHINE OPERATOR Work Phone: [facility] 08-26-2022 14:03-0400 Respiratory rate 18 /min Tani Pendlebury ORTHOTIC TECHNICIAN.BURNER MACHINE OPERATOR Work Phone: [facility] 08-26-2022 14:03-0400 SaO2% (BldA) [Mass fraction] 96 % [facility] ORTHOTIC TECHNICIAN.BURNER MACHINE OPERATOR Work Phone: [facility] 08-26-2022 14:03-0400 Systolic blood pressure 128 mm[Hg] [facility] ORTHOTIC TECHNICIAN.BURNER MACHINE OPERATOR Work Phone: [facility] 08-17-2022 17:49-0400 Body temperature 98.6 [degF] [facility] ORTHOTIC TECHNICIAN.BURNER MACHINE OPERATOR Work Phone: [facility] 08-17-2022 17:49-0400 Body weight 44.73 kg [facility] ORTHOTIC TECHNICIAN.BURNER MACHINE OPERATOR Work Phone: [facility] 08-17-2022 17:49-0400 Diastolic blood pressure 74 mm[Hg] [facility] ORTHOTIC TECHNICIAN.BURNER MACHINE OPERATOR Work Phone: [facility] 08-17-2022 17:49-0400 Heart rate 84 /min [facility] ORTHOTIC TECHNICIAN.BURNER MACHINE OPERATOR Work Phone: [facility] 08-17-2022 17:49-0400 Respiratory rate 16 /min [facility] ORTHOTIC TECHNICIAN.BURNER MACHINE OPERATOR Work Phone: [facility] 08-17-2022 17:49-0400 SaO2% (BldA) [Mass fraction] 96 % [facility] ORTHOTIC TECHNICIAN.BURNER MACHINE OPERATOR Work Phone: [facility] 08-17-2022 17:49-0400 Systolic blood pressure 120 mm[Hg] [facility] ORTHOTIC TECHNICIAN.BURNER MACHINE OPERATOR Work Phone: [facility] 07-16-2020 14:30-0400 Body height 157.5 cm Jessica Cano APRN BURNER MACHINE OPERATOR Work Phone: [facility] 07-16-2020 14:30-0400 Body mass index (BMI) [Ratio] 18.84 kg/m2 Jessica Cano APRN BURNER MACHINE OPERATOR Work Phone: [facility] 07-16-2020 14:30-0400 Body weight 46.72 kg Jessica Cano APRN BURNER MACHINE OPERATOR Work Phone: [facility] 07-16-2020 14:30-0400 Diastolic blood pressure 64 mm[Hg] Jessica Cano APRN BURNER MACHINE OPERATOR Work Phone: [facility] 07-16-2020 14:30-0400 Heart rate 71 /min Jessica Cano APRN BURNER MACHINE OPERATOR Work Phone: [facility] 07-16-2020 14:30-0400 Systolic blood pressure 118 mm[Hg] Jessica Cano APRN BURNER MACHINE OPERATOR Work Phone: [facility] Encounters Encounter Date Encounter Type Care Provider Facility Start: 11-26-2023 End: 11-27-2023 Telephone encounter Orestes Geo YEBOAH.BURNER MACHINE OPERATOR Work Phone: [facility] Comment on above: Results Start: 11-26-2023 End: 11-26-2023 Subsequent hospital visit by physician Alda [facility] [place] Work Phone: Radiology Comment on above: Pain [R52] Start: 11-26-2023 End: 11-26-2023 ambulatory [facility] Facility:[facility] Start: 11-26-2023 End: 11-26-2023 Patient encounter procedure Orestes Geo YEBOAH.BURNER MACHINE OPERATOR Work Phone: [facility] Comment on above: Pain (Primary Dx) Start: 10-24-2023 End: 10-24-2023 [facility] Facility:[facility] Start: 10-24-2023 End: 10-24-2023 Patient encounter procedure Edna Tere ORTHOTIC TECHNICIAN.BURNER MACHINE OPERATOR Work Phone: [facility] Comment on above: Left leg pain (Prima ry Dx) Start: 06-08-2023 End: 06-08-2023 ambulatory [facility] Facility:[facility] Start: 06-08-2023 End: 06-08-2023 Patient encounter procedure Ronnie Salmeronw ORTHOTIC TECHNICIAN.BURNER MACHINE OPERATOR Work Phone: [facility] Comment on above: Acute cough (Primary Dx) Start: 06-03-2023 End: 06-03-2023 Subsequent hospital visit by physician Alda [facility] [place] Work Phone: Radiology Comment on above: Pain of right upper extremity [M79.601] Start: 06-03-2023 End: 06-03-2023 [facility] Facility:[facility] Start: 06-03-2023 End: 06-03-2023 Patient encounter procedure Dinora Klein ORTHOTIC TECHNICIAN.BURNER MACHINE OPERATOR Work Phone: [facility] Comment on above: Pain of right upper extremity (Primary Dx); Acute midline thoracic back pain; Compression fracture of L1 vertebra, initial encounter ([facility]) Start: 12-25-2022 End: 12-25-2022 [facility] Facility:[facility] Start: 12-25-2022 End: 12-25-2022 Patient encounter procedure Tracey Valle APRN.BURNER MACHINE OPERATOR Work Phone: [facility] Comment on above: Laceration of left h and without foreign body, subsequent encounter (Primary Dx) Start: 12-24-2022 End: 12-24-2022 [facility] Facility:[facility] Start: 12-24-2022 End: 12-24-2022 Patient encounter procedure Tracey Valle APRN.BURNER MACHINE OPERATOR Work Phone: [facility] Comment on above: Laceration of muscle of left hand (Primary Dx) Start: 11-23-2022 End: 11-23-2022 Patient encounter procedure Momo Gongora APRN.BURNER MACHINE OPERATOR Work Phone: [facility] Comment on [...] 08-26-2022 Subsequent hospital visit by physician Alda [facility] [place] Work Phone: Radiology Comment on above: Acute right ankle pa in [M25.571] Start: 08-26-2022 End: 08-26-2022 Office outpatient visit 15 minutes Tani Hardy APRN.BURNER MACHINE OPERATOR Work Phone: [facility] Comment on above: Acute right ankle pa in (Primary Dx); Foot injury, right, initial encounter Start: 08-17-2022 End: 08-17-2022 Subsequent hospital visit by physician Alda [facility] Work Phone: Radiology Comment on above: Foot injury, right, initial encounter [S99.921A] Start: 08-17-2022 End: 08-17-2022 Office outpatient visit 15 minutes Tani Hardy APRN.BURNER MACHINE OPERATOR Work Phone: [facility] Comment on above: Foot injury, right, initial encounter (Primary Dx) Start: 08-17-2022 Telephone encounter Tani randle APRN.DEBORA Work Phone: 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, bilateral (Primary Dx) Start: 05-05-2020 End: 05-05-2020 Patient encounter procedure ARELI CAMPBELL [facility] Start: 03-21-2020 End: 03-21-2020 Patient encounter procedure TANI PATRICK [facility] Start: 03-19-2020 End: 03-19-2020 Patient encounter procedure TIERRA KLEIN [facility] Start: 09-21-2019 End: 09-21-2019 Patient [facility] Start: 08-26-2019 Patient encounter procedure VINITA GANT [facility] Start: 08-24-2019 End: 08-25-2019 Emergency department patient visit LOUIS GALEAS LIZETH [facility] Start: 06-28-2017 End: 06-28-2017 Ambulatory ARELI CAMPBELL Facility:A Start: 03-15-2017 End: 03-15-2017 Ambulatory ARELI CAMPBELL Facility:[facility] Start: 01-26-2017 Ambulatory TIERRA MARTINEZ [facility] Start: 01-17-2017 End: 01-17-2017 Ambulatory TIERRA MARTINEZ [facility] Start: 01-14-2017 End: 01-14-2017 Ambulatory TIERRA MARTINEZ [facility] Start: 01-09-2017 End: 01-09-2017 Emergency department patient visit TIERRA MARTINEZ [facility] Start: 12-28-2016 End: 12-29-2016 Emergency department patient visit TOMA GALEAS MARIAJOSE [facility] Start: 12-07-2016 End: 12-07-2016 Emergency department patient visit MARTY MARTINEZ [facility] Start: 11-17-2016 End: 11-17-2016 Emergency department patient [facility] Start: 11-09-2016 End: 11-09-2016 Emergency department patient visit KRISHAN [facility] Start: 09-20-2016 End: 09-20-2016 Ambulatory [facility] Facility:[facility] Start: 09-20-2016 End: 09-20-2016 Emergency department patient visit MANDY GALEAS ZEINA [facility] Start: 05-06-2015 Patient encounter status Nani Hardy ORTHOTIC TECHNICIAN.BURNER MACHINE OPERATOR Work Phone: [facility] Work Phone: Procedures Date Procedure Procedure Detail Performing Clinician Start: 11-26-2023 Radex ribs uni w/posteroant ch minimum 3 views Orestes Hooks ORTHOTIC TECHNICIAN.BURNER MACHINE OPERATOR Work Phone: Start: 06-03-2023 Radex forearm 2 views Benedicto Klein ORTHOTIC TECHNICIAN.BURNER MACHINE OPERATOR Work Phone: Start: 08-26-2022 Radex ankle complete minimum 3 views Tani Hardy ORTHOTIC TECHNICIAN.BURNER MACHINE OPERATOR Work Phone: Start: 08-17-2022 Radex foot complete minimum 3 views Tani Hardy ORTHOTIC TECHNICIAN.DEBORA Work Phone: Plan of Treatment Date Care Activity Detail Author Start: 12-02-2032 Urine microalbumin profile DTaP,Tdap,Td Vaccine (3 - Td or Tdap) [facility] Start: 03-22-2026 Urine microalbumin profile [facility] Start: 11-13-2023 Covid-19 Vaccine ( season) Covid-19 Vaccine ( season) [facility] Start: 11-13-2023 Influenza vaccination Influenza Vacc ine (#1) [facility] Start: 03-14-2023 Advance Directive Discussion Advance Directive Discussion [facility] Start: 03-14-2023 [facility] Start: 11-12-2022 Covid-19 Vaccine ( season) Covid-19 Vaccine ( season) [facility] Start: 11-12-2022 Influenza vaccination Influenza Vacc ine (#1) [facility] Start: 03-14-2022 ADVANCE DIRECTIVE DISCUSSION ADVANCE DIRECTIVE DISCUSSION [facility] Start: 03-14-2022 DEPRESSION ASSESSMENT DEPRESSION ASS ESSMENT [facility] Start: 11-12-2020 Influenza vaccinatio n given INFLUENZA VACCINE (Season Ended) [facility] Start: 10-20-2020 End: 10-20-2020 Patient encounter procedure 10/20/2020 Appointment [facility] Sharona Brothers MD [address] [place] [address] [phone] [facility] Start: 08-05-2020 End: 08-05-2020 Patient encounter procedure 08/05/2020 Appointment [facility] Jessica Cano APRN BURNER MACHINE OPERATOR [address] [address] [phone] [facility] [place] Start: 06-12-2019 DIABETES SCREEN DIABETES SCREEN [facility] Start: 06-12-2019 Diabetes Screening Diabetes Screenin g [facility] Start: 11-10-2017 Screening for osteoporosis Bone Density Screening [facility] Start: 02-25-2015 Shingrix Vaccine (2 of 3) Shingrix Vaccine (2 of 3) [facility] Start: 2002 Fall risk assessment FALL RISK [facility] Start: 2002 Glaucoma screening GLAUCOMA/EY E EXAM AGE 65+ [facility] Start: 2002 Osteoporosis risk assessment done BONE DENSITY SCREENING [facility] Start: 1997 RSV Vaccine (1 - 1-d ose 60+ series) RSV Vaccine (1 - 1-dose 60+ series) [facility] Start: 12-01-1987 SHINGRIX VACCINE (1 of 2) SHINGRIX VACCINE (1 of 2) [facility] Start: 12-01-1987 Zoster vaccine hzv l donald for subcutaneous use ZOSTER (SHINGLES) VACCINE (1 of 2) [facility] Start: 1977 Screening mammography MAMMOGRAM [facility] Start: 12-01-1955 ANNUAL WELLNESS VISIT ANNUAL WELLNES S VISIT [facility] Start: 12-01-1955 Depression Screening Depression Scre [facility] Start: 1949 Depression screening using PHQ-9 (Patient Health Questionnaire 9) score DEPRESSION SCREENING [facility] Start: 1948 Diphtheria + pertuss is + tetanus vaccine (product) DTAP/TDAP/TD VACCINE (1 - Tdap) [facility] Start: 05-30-1938 COVID-19 VACCINE (#1) COVID-19 VACCI NE (#1) [facility] End: 08-16-2021 Venous Insufficiency Study-Bilat Lower Ext Venous Insufficiency Study-Bilat Lower Ext [facility] Services Routine Varicose veins of lower extremity with inflammation, bilateral 1 Occurrences starting 07/16/2020 until 08/16/2021 [facility] Comment on above: 1 Occurrences starti ng 07/16/2020 until 08/16/2021 End: 08-05-2020 Venous Insufficiency Study-Bilat Lower Ext Venous Insufficiency Study-Bilat Lower Ext Cardiac Services Routine Varicose veins of lower extremity with inflammation, bilateral 1 Occurrences starting 08/05/2020 until 08/05/2020 [facility] Comment on above: 1 Occurrences starti ng 08/05/2020 until 08/05/2020 Venous Insufficiency Study-Bilat Lower Ext Venous Insufficiency Study-Bilat Lower Ext Cardiac Services Routine Varicose veins of lower extremity with inflammation, bilateral 08/05/2020 4:10 PM EDT [facility] Immunizations Immunization Date Immunization Notes Care Provider Violette dupree 02-22-2022 influenza virus vaccine, unspecified formulation Momo Gongora ORTHOTIC TECHNICIAN.BURNER MACHINE OPERATOR Work Phone: [facility] 01-01-2019 influenza virus vaccine, unspecified formulation Jessica Cano ORTHOTIC TECHNICIAN BURNER MACHINE OPERATOR Work Phone: [facility] 03-22-2016 tetanus toxoid, redu laura diphtheria toxoid, and acellular pertussis vaccine, adsorbed Tani Pendlebury ORTHOTIC TECHNICIAN.BURNER MACHINE OPERATOR Work Phone: [facility] 05-06-2015 pneumococcal conjuga te vaccine, 13 valent Tani Pendlebury ORTHOTIC TECHNICIAN.BURNER MACHINE OPERATOR Work Phone: [facility] Work Phone: 12-18-2014 influenza, high dose seasonal, preservative-free Tani Pendlebury ORTHOTIC TECHNICIAN.BURNER MACHINE OPERATOR Work Phone: [facility] 01-08-2014 influenza, seasonal, injectable Tani Pendlebury ORTHOTIC TECHNICIAN.BURNER MACHINE OPERATOR Work Phone: [facility] 01-04-2013 influenza virus vaccine, unspecified formulation Tani Pendlebury ORTHOTIC TECHNICIAN.BURNER MACHINE OPERATOR Work Phone: [facility] 12-27-2011 influenza virus vaccine, unspecified formulation Tani Pendlebury ORTHOTIC TECHNICIAN.BURNER MACHINE OPERATOR Work Phone: [facility] 01-22-2010 influenza virus vaccine, unspecified formulation Tani Pendlebury ORTHOTIC TECHNICIAN.BURNER MACHINE OPERATOR Work Phone: [facility] 12-14-2008 influenza virus vaccine, unspecified formulation Tani Pendlebury ORTHOTIC TECHNICIAN.BURNER MACHINE OPERATOR Work Phone: [facility] Work Phone: 01-18-2008 influenza virus vaccine, unspecified formulation Tani Pendlebury ORTHOTIC TECHNICIAN.BURNER MACHINE OPERATOR Work Phone: [facility] Work Phone: 01-23-2007 influenza virus vaccine, unspecified formulation [facility] ORTHOTIC TECHNICIAN.BURNER MACHINE OPERATOR Work Phone: [facility] Work Phone: 01-11-2006 influenza virus vaccine, unspecified formulation Tani Dumontli ORTHOTIC TECHNICIAN.BURNER MACHINE OPERATOR Work Phone: [facility] 02-09-2005 influenza virus vaccine, unspecified formulation Tanimiriam Dumontli ORTHOTIC TECHNICIAN.BURNER MACHINE OPERATOR Work Phone: [facility] Work Phone: 02-09-2005 pneumococcal polysaccharide vaccine, 23 valent [facility] ORTHOTIC TECHNICIAN.BURNER MACHINE OPERATOR Work Phone: [facility] Work Phone: 07-12-2004 tetanus and diphther ia toxoids, not adsorbed, for adult use Tanimiriam Dumontli ORTHOTIC TECHNICIAN.BURNER MACHINE OPERATOR Work Phone: [facility] Work Phone: Payers Date Payer Category Payer Medicare ANTHEM MEDICARE ADVANTAGE ANTHEM HMO MEDICARE SR ADVANTAGE [id number] [phone] [address] [address] [place] [address] Medicare [id number] 2020 Unknown [id number] 2020 Medicare [id number] 2016 Unknown [id number] 2016 Medicare [id number] 1937 Unknown [id number] 1 1937 Unknown [id number] 1 1937 Unknown [id number] 1 1937 Unknown [id number] 1 1937 Unknown [id number] 1 1937 Unknown [id number] 1 1937 Unknown [id number] 1 Medicare [id number] Social History Date Type Detail Facility Start: 07-16-2020 Tobacco smoking stat us WYIS Never smoker [facility] Start: 07-16-2020 End: 08-17-2022 Tobacco use and exposure Never used [facility] Start: 07-16-2020 Alcohol intake Lifetime non-d andrey (finding) [facility] Start: 07-16-2020 History SDOH Alcohol Frequency 1 [facility] Start: 1935 Sex Assigned At Not on file G [facility] Start: 08-17-2022 End: 11-26-2023 Tobacco smoking status NHIS Ex-smoker [facility] Work Phone: History of tobacco use Current smoker [facility] Work Phone: History of tobacco use Cigarette Smoker [facility] Work Phone: Start: 02-19-2020 End: 08-17-2022 Cigarettes smoked current (pack per day) - Reported 0.5 [facility] Start: 08-17-2022 End: 08-26-2022 Alcohol intake Current non-drinker of alcohol (finding) [facility] Start: 08-17-2022 Tobacco Comment quit 1992 [facility] Start: 02-19-2020 End: 11-23-2022 Tobacco use panel [facility] National Score (1-10 0), lower number is lower risk 70 [facility] Clinical Notes 11-25-2010 to 11-27-2023 Telephone Encounter - Kathie Francisco MA - 11/27/2023 9:14 AM EDTTelephone Encounter - Kathie Francisco MA - 11/27/2023 9:14 AM EDTTelephone Encounter - Kathie Francisco MA - 11/26/2023 2:45 PM EDT Note Date & Type Note Facility 11-27-2023 Telephone encounter Note notified pt. Kathie Francisco MA [facility] 11-27-2023 Miscellaneous Notes notified pt. Kathie Francisco MA Left message for patient to return call. Kathie Francisco MA Please call and let her know that xray was negative. Thank you documented in this encounter [facility] 11-26-2023 Telephone encounter Note Left message for patient to return call. Kathie Francisco MA [facility] 11-26-2023 Telephone encounter Note Please call and let her know that xray was negative. Thank you [facility] Work Phone: 11-26-2023 History of Present [...] PATIENT PRESENTS WITH AN IMPLANTABLE OR ATTACHED PHYSICIAN PRESIDENT: No RADIOLOGY DEPARTMENT: General X-ray: Exam(s) Completed: Rib X-Ray: Right PERIPHERAL IV DATA: Not applicable SIGNED BY: HINA Villar) November 26, 2023 12:00 PM documented in this encounter [facility] 11-26-2023 Note HNO ID: [id number] Author: NANETTE NGUYEN RT (R) Service: Radiology [...] PATIENT PRESENTS WITH AN IMPLANTABLE OR ATTACHED PHYSICIAN PRESIDENT: No RADIOLOGY DEPARTMENT: General X-ray: Exam(s) Completed: Rib X-Ray: Right PERIPHERAL IV DATA: Not applicable SIGNED BY: RT Aurea(Philip) November 26, 2023 12:00 PM [facility] 11-26-2023 Note HNO ID: [id number] Author: ORESTES HOOKS APRN.BURNER MACHINE OPERATOR Service: ? Author Type: Nurse Practitioner Type: [...] history is provided by the patient. No speech and language specialist was used. Review of Systems Constitutional: [...] SURGICAL HISTORY OF bile duct surg @ [place] PAST SURGICAL HISTORY OF 03/2015 had vein [...] Tape (Rosins), Estradiol, Fleet Phospho-Soda Accu-Prep [Sodium Durxldorae-Nbycpw-Fdb], Hydroxyzine, Novocain [Procaine Hcl], Nsaids (Non-Steroidal Anti-Inflammatory [...] mouth once daily. (more content not included)... [facility] 11-26-2023 History of Present illness Narrative Images [...] history is provided by the patient. No speech and language specialist was used. Review of Systems Constitutional: [...] SURGICAL HISTORY OF bile duct surg @ [place] PAST SURGICAL HISTORY OF 03/2015 had vein [...] Tape (Rosins), Estradiol, Fleet Phospho-Soda Accu-Prep [Sodium Qstsrtgmly-Akjptt-Cdp], Hydroxyzine, Novocain [Procaine Hcl], Nsaids (Non-Steroidal Anti-Inflammatory [...] (FLONASE) 50 mcg/actuation nasal spray Use 1 Severy in each nostril once daily. 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 Continuous [employer] Supervisor: IBETH Transcribe Date/Time: Nov 26 2023 2:13P Dictated by : COLLIN ARRIAGA MD Rest and follow up with pcp in a week if not improved. Orestes Hooks APRN.BURNER MACHINE OPERATOR documented in this encounter [facility] 10-24-2023 Note HNO ID: [id number] Author: EDNA CARRANZA APRN.CNP Service: ? Author [...] no longer on eliquis. She was in [place] ED, and left due to wait. I advised that this time in day I could not get an US here in [place], and offered to check in [place], that to see her here in [facility] care I would need same day results. Patient declined visit and to go to [place], and will go back to [place] [facility] There were no vitals taken for [...] have confirmed and edited as necessary, the [facility] ASSESSMENT/PLAN: 1. Left leg pain - [...] detail warranting prompt ER evaluation. Edna Carranza APRN.[facility] 10-24-2023 History of Present illness Narrative Triage Note: HPI sEther Hill is a 87 year old female who presents today for CC of concern for blood clot in leg. She has a h/o of a DVT and has taken eliquis. Pain is the same as when she had a blood clot. She is no longer on eliquis. She was in [place] ED, and left due to wait. I advised that this time in day I could not get an US here in [place], and offered to check in [place], that to see her here in [facility] care I would need same day results. Patient declined visit and to go to [place], and will go back to [place] [facility] There were no vitals taken for [...] have confirmed and edited as necessary, the [facility] ASSESSMENT/PLAN: 1. Left leg pain - [...] Edna Carranza APRN.DEBORA documented in this encounter [facility] 06-08-2023 Instructions Ronnie Vidal APRN.CNP - [...] by coughs, sneezes, and direct contact, especially [id number]. A respiratory tract infection usually clears up [...] F (39 C). documented in this encounter [facility] 06-08-2023 Note HNO ID: [id number] Author: RONNIE VIDAL APRN.BURNER MACHINE OPERATOR Service: ? Author Type: Nurse Practitioner Type: Progress Notes Filed: 06/08/2023 10:33 Note Text: This note was created using Excel Energy[employer]. Subjective Esther Hill is a 87 year [...] needed. Patient comfortable with plan. Ronnie Vidal APRN.BURNER MACHINE OPERATOR [facility] 06-08-2023 History of Present illness Narrative This note was created using [employer]. Subjective Esther Hill is a 87 year [...] Ronnie Vidal APRN.CNP documented in this encounter [facility] 06-03-2023 History of Present illness Narrative [...] PATIENT PRESENTS WITH AN IMPLANTABLE OR ATTACHED PHYSICIAN PRESIDENT: No RADIOLOGY DEPARTMENT: General X-ray: Exam(s) Completed: Spine X-Ray(s): Thoracic Upper Extremity X-Ray(s): Humerus, right and Forearm, right PERIPHERAL IV DATA: Not applicable SIGNED BY: RT Freddy(R) June 03, 2023 1:25 PM documented in this encounter [facility] 06-03-2023 Note HNO ID: [id number] Author: ROSENDO SHAY RT(Philip) Service: Radiology Author [...] PATIENT PRESENTS WITH AN IMPLANTABLE OR ATTACHED PHYSICIAN PRESIDENT: No RADIOLOGY DEPARTMENT: General X-ray: Exam(s) Completed: Spine X-Ray(s): Thoracic Upper Extremity X-Ray(s): Humerus, right and Forearm, right PERIPHERAL IV DATA: Not applicable SIGNED BY: RT Freddy(R) June 03, 2023 1:25 PM [facility] 06-03-2023 Note HNO ID: [id number] Author: DINORA KLEIN APRN.BURNER MACHINE OPERATOR Service: ? Author Type: Nurse Practitioner Type: [...] SURGICAL HISTORY OF bile duct surg @ [facility] PAST SURGICAL HISTORY OF 03/2015 had vein [...] Tape (Rosins), Estradiol, Fleet Phospho-Soda Accu-Prep [Sodium Fchytyekry-Rhqofu-Dti], Hydroxyzine, Novocain [Procaine Hcl], Nsaids (Non-Steroidal Anti-Inflammatory [...] (PROBIOTIC, B. C (more content not included)... [facility] 06-03-2023 History of Present illness Narrative This [...] SURGICAL HISTORY OF bile duct surg @ [facility] PAST SURGICAL HISTORY OF 03/2015 had vein [...] Tape (Rosins), Estradiol, Fleet Phospho-Soda Accu-Prep [Sodium Rafmnbbetj-Wujpgs-Rob], Hydroxyzine, Novocain [Procaine Hcl], Nsaids (Non-Steroidal Anti-Inflammatory [...] (FLONASE) 50 mcg/actuation nasal spray Use 1 Severy in each nostril once daily. Cholecalciferol, Vitamin [...] Compression fracture of L1 vertebra, initial encounter ([facility]) - ICD9: 805.4, ICD10: S32.010A - XR THORACIC LIMITED 2V AP/LAT- Compression fracture of the vertebral body of L1 has developed since the prior study - Rest and OTC analgesia PRN - Follow-up with PCP in one week Juana Zhong TEACHING PROVIDER (Physician/PA/ORTHOTIC TECHNICIAN) NOTE OF PERSONAL INVOLVEMENT IN CARE: I have personally seen and examined the patient and performed the medical decision-making components. I have reviewed the Advanced Practice Registered Nurse (ORTHOTIC TECHNICIAN) Student's documentation and verified the findings in the note as written. Any additions or changes are noted in bold/italics. Signature: Dinora Klein Date: 06/03/2023 Time: 2:52 PM documented in this encounter [facility] 12-25-2022 Instructions Tracey Valle APRN.CNP - [...] which would likely bleed also. Tracey Valle APRN.BURNER MACHINE OPERATOR documented in this encounter [facility] 12-25-2022 Note HNO ID: [id number] Author: Tracey Valle APRN.BURNER MACHINE OPERATOR Service: ? Author Type: Nurse Practitioner Type: [...] SURGICAL HISTORY OF bile duct surg @ [facility] PAST SURGICAL HISTORY OF 03/2015 had vein [...] Tape (Rosins), Estradiol, Fleet Phospho-Soda Accu-Prep [Sodium Fhlgbnjhlq-Pkfdhj-Vaw], Hydroxyzine, Novocain [Procaine Hcl], Nsaids (Non-Steroidal Anti-Inflammatory [...] (FLONASE) 50 mcg/actuation nasal spray Use 1 Severy in each nostril once daily. ONE DAILY MULTIVITAMIN ORAL Take by mouth once daily. vitamins oxyCODONE-acetaminophen (PERCOCET) 5-325 mg tablet Take 1 tablet by mouth every 4 hours as needed. Potassium 99 mg tab Take 1 tablet by mouth as needed. vit calc,iron,folic ( #2 ORAL) Joseluis (more content not included)... [facility] 12-25-2022 History of Present illness Narrative Subjective [...] SURGICAL HISTORY OF bile duct surg @ [facility] PAST SURGICAL HISTORY OF 03/2015 had vein [...] Tape (Rosins), Estradiol, Fleet Phospho-Soda Accu-Prep [Sodium Jdqfajpcdp-Bfxitz-Gaq], Hydroxyzine, Novocain [Procaine Hcl], Nsaids (Non-Steroidal Anti-Inflammatory [...] (FLONASE) 50 mcg/actuation nasal spray Use 1 Severy in each nostril once daily. ONE DAILY [...] more wounds which would likely bleed also. Tracye Valle APRN.DEBORA documented in this encounter [facility] 12-24-2022 Instructions Tracey Valle APRN.CNP - [...] Tracey Valle APRN.CNP documented in this encounter [facility] 12-24-2022 Note HNO ID: [id number] Author: Tracey Valle APRN.CNP Service: ? Author [...] SURGICAL HISTORY OF bile duct surg @ [facility] PAST SURGICAL HISTORY OF 03/2015 had vein [...] Tape (Rosins), Estradiol, Fleet Phospho-Soda Accu-Prep [Sodium Dtzuoliyhb-Sinvnn-Zfe], Hydroxyzine, Novocain [Procaine Hcl], Nsaids (Non-Steroidal Anti-Inflammatory [...] (FLONASE) 50 mcg/actuation nasal spray Use 1 Severy in each nostril once daily. ONE DAILY MULTIVITAMIN ORAL Take by mouth once daily. vitamins oxyCODONE-acetaminophen (PERCOCET) 5-325 mg tablet Take 1 tablet by mouth every 4 hours as needed (more content not included)... [facility] 12-24-2022 History of Present illness Narrative Images [...] SURGICAL HISTORY OF bile duct surg @ [facility] PAST SURGICAL HISTORY OF 03/2015 had vein [...] Tape (Rosins), Estradiol, Fleet Phospho-Soda Accu-Prep [Sodium Mfjathtanj-Kqcoia-Krs], Hydroxyzine, Novocain [Procaine Hcl], Nsaids (Non-Steroidal Anti-Inflammatory [...] (FLONASE) 50 mcg/actuation nasal spray Use 1 Severy in each nostril once daily. ONE DAILY [...] medical evaluation if any occur. Tracey Valle APRN.BURNER MACHINE OPERATOR documented in this encounter [facility] 11-23-2022 History of Present illness Narrative Patient triaged at [facility]. Here today with fall 1 hour ago, hit head, left shoulder/elbow/hand hurts. Right hand bleeding. I will refer to ER. Family to drive pov to [facility] ER. documented in this encounter [facility] 08-31-2022 Instructions Mandy Olsen - 08/31/2022 9:42 AM EDT Recommend lace up tennis shoe, ie ministerio or maral Recommend placing foot in cold water bath tub x 10 minutes twice daily Rest your foot for the next 1-2 weeks and your pain should improve. documented in this encounter [facility] 08-31-2022 History of Present illness Narrative [...] (FLONASE) 50 mcg/actuation nasal spray Use 1 Severy in each nostril once daily. Cholecalciferol, Vitamin [...] SURGICAL HISTORY OF bile duct surg @ [facility] PAST SURGICAL HISTORY OF 03/2015 had vein [...] Olsen DPM Podiatry [address] [facility] [address] Dept: [phone] Dept Patient presents here today for right ankle pain and injury. Patient states that she isn't in pain at the moment but was hurting this morning. States she went to the urgent care and they told her to stay off it and taped her toes. He recommended she come here. Patient states she hurt it a few weeks ago. documented in this encounter [facility] 08-26-2022 History of Present illness Narrative [...] SURGICAL HISTORY OF bile duct surg @ [facility] PAST SURGICAL HISTORY OF 03/2015 had vein [...] Tape (Rosins), Estradiol, Fleet Phospho-Soda Accu-Prep [Sodium Vmnqbcaher-Xbmsxu-Ndh], Hydroxyzine, Novocain [Procaine Hcl], Nsaids (Non-Steroidal Anti-Inflammatory [...] (FLONASE) 50 mcg/actuation nasal spray Use 1 Severy in each nostril once daily. cyanocobalamin, vitamin [...] of care. This note was generated using MEDSEEK software. It may contain errors in wording, punctuation, or spelling. Tani Hardy APRN.DEBORA documented in this encounter [facility] 08-18-2022 Miscellaneous Notes Pt daughter called back, relayed X-Ray results to daughter. Daughter verbalized understanding. aTmera Mayer MA Unable to reach patient. Mailbox full/Mailbox not set up/ Number incorrect. Please try again later. Both phones unable to leave voicemail. Kathie Francisco Unable to reach patient. Mailbox full/Mailbox not set up/ Number incorrect. Please try again later. Kathie Francisco No abnormal findings noted on x-ray. Continue supportive therapies as discussed. Tani Hardy APRN.CNP documented in this encounter [facility] 08-17-2022 History of Present illness Narrative [...] 2022 5:59 PM documented in this encounter [facility] 08-17-2022 History of Present illness Narrative [...] SURGICAL HISTORY OF bile duct surg @ [place] PAST SURGICAL HISTORY OF 03/2015 had vein [...] Tape (Rosins), Estradiol, Fleet Phospho-Soda Accu-Prep [Sodium Msajoygmok-Kkjugz-Hfn], Hydroxyzine, Novocain [Procaine Hcl], Nsaids (Non-Steroidal Anti-Inflammatory [...] (FLONASE) 50 mcg/actuation nasal spray Use 1 Severy in each nostril once daily. (Patient not [...] RIGHT No acute fractures noted on x-ray. Wesotn tape applied. Padding placed between third and [...] of care. This note was generated using MEDSEEK software. It may contain errors in wording, punctuation, or spelling. Tani Hardy APRN.DEBORA documented in this encounter [facility] 07-16-2020 History of Present illness Narrative CVI HISTORY 1. Have you ever had vein stripping surgery? (If yes, when and which leg?) Yes Dr. Howell at [facility] 2. Have you ever had vein [...] you diagnosed with saphenous vein reflux? No [facility] VEIN CENTER CONSULT NOTE 07/16/2020 Chief Complaint [...] had stripping done many years ago at [facility]. Reports that he didn't finish the [...] provider on file. documented in this encounter [facility] 07-16-2020 Miscellaneous Notes Encounter addended by: Kathie Johansen RN on: 07/16/2020 3:11 PM Actions taken: Edited Discharge Instructions documented in this encounter [facility] 07-16-2020 Hospital Discharge instructions Kathie Johansen RN - 07/16/2020 Do not wear compression the day of your venous scan. We will call you with results. documented in this encounter [facility] 11-25-2010 History of Past i llness Narrative Problem Noted Date Resolved Date NO SHOW 11/25/2010 09/07/2013 Abdominal pain, right lower quadrant 09/11/2008 08/24/2011 DIVERTICULITIS COLON - NO HEMORRHAGE 07/29/2008 09/21/2013 Diverticulosis of colon (without mention of hemo rrhage) 09/21/2013 Overview: Acute Episode Diverticulitis - 07/15/08 documented as of this encounter (statuses as of 08/18/2022) [facility] History of Past illness Narrative* Problem Noted Date Resolved Date NO SHOW 11/25/2010 09/07/2013 Abdominal pain, right lower quadrant 09/11/2008 08/24/2011 DIVERTICULITIS COLON - NO HEMORRHAGE 07/29/2008 09/21/2013 Diverticulosis of colon (without mention of hemo rrhage) 09/21/2013 Overview: Acute Episode Diverticulitis - 07/15/08 documented as of this encounter (statuses as of 08/19/2022) [facility] History of Past illness Narrative* Problem Noted Date Resolved Date NO SHOW 11/25/2010 09/07/2013 Abdominal pain, right lower quadrant 09/11/2008 08/24/2011 DIVERTICULITIS COLON - NO HEMORRHAGE 07/29/2008 09/21/2013 Diverticulosis of colon (without mention of hemo rrhage) 09/21/2013 Overview: Acute Episode Diverticulitis - 07/15/08 documented as of this encounter (statuses as of 08/27/2022) [facility] History of Past illness Narrative* Problem Noted Date Resolved Date NO SHOW 11/25/2010 09/07/2013 Abdominal pain, right lower quadrant 09/11/2008 08/24/2011 DIVERTICULITIS COLON - NO HEMORRHAGE 07/29/2008 09/21/2013 Diverticulosis of colon (without mention of hemo rrhage) 09/21/2013 Overview: Acute Episode Diverticulitis - 07/15/08 documented as of this encounter (statuses as of 08/31/2022) [facility] History of Past illness Narrative* Problem Noted Date Diagnosed Date Resolved Date NO SHOW 11/25/2010 09/07/2013 Abdominal pain, right lower quadrant 09/11/2008 08/24/2011 DIVERTICULITIS COLON - NO HEMORRHAGE 07/29/2008 09/21/2013 Diverticulosis of colon (wit hout mention of hemorrhage) 09/21/2013 Overview: Acute Episode Diverticulitis - 07/15/08 documented as of this encounter (statuses as of 11/24/2022) [facility] History of Past illness Narrative* Problem Noted Date Diagnosed Date Resolved Date NO SHOW 11/25/2010 09/07/2013 Abdominal pain, right lower quadrant 09/11/2008 08/24/2011 DIVERTICULITIS COLON - NO HEMORRHAGE 07/29/2008 09/21/2013 Diverticulosis of colon (wit hout mention of hemorrhage) 09/21/2013 Overview: Acute Episode Diverticulitis - 07/15/08 documented as of this encounter (statuses as of 12/25/2022) [facility] History of Past illness Narrative* Problem Noted Date Diagnosed Date Resolved Date NO SHOW 11/25/2010 09/07/2013 Abdominal pain, right lower quadrant 09/11/2008 08/24/2011 DIVERTICULITIS COLON - NO HEMORRHAGE 07/29/2008 09/21/2013 Diverticulosis of colon (wit hout mention of hemorrhage) 09/21/2013 Overview: Acute Episode Diverticulitis - 07/15/08 documented as of this encounter (statuses as of 12/25/2022) [facility] History of Past illness Narrative* Problem Noted Date Diagnosed Date Resolved Date NO SHOW 11/25/2010 09/07/2013 Abdominal pain, right lower quadrant 09/11/2008 08/24/2011 DIVERTICULITIS COLON - NO HEMORRHAGE 07/29/2008 09/21/2013 Diverticulosis of colon (wit hout mention of hemorrhage) 09/21/2013 Overview: Acute Episode Diverticulitis - 07/15/08 documented as of this encounter (statuses as of 06/03/2023) [facility] History of Past illness Narrative* Problem Noted Date Diagnosed Date Resolved Date NO SHOW 11/25/2010 09/07/2013 Abdominal pain, right lower quadrant 09/11/2008 08/24/2011 DIVERTICULITIS COLON - NO HEMORRHAGE 07/29/2008 09/21/2013 Diverticulosis of colon (wit hout mention of hemorrhage) 09/21/2013 Overview: Acute Episode Diverticulitis - 07/15/08 documented as of this encounter (statuses as of 06/09/2023) [facility] note* Diagnosis Varicose veins of lower extremity with inflammation, bilateral- Primary documented in this encounter [facility] note* Diagnosis Varicose veins of lower extremity with inflammation, bilateral documented in this encounter [facility] note* Diagnosis Foot injury, right, initial encounter- Primary documented in this encounter [facility] note* Diagnosis Acute right ankle pain- Primary Foot injury, right, initial encounter documented in this encounter [facility] note* Diagnosis Contusion of foot, unspecified laterality, initial encounter- Primary Acute right ankle pain Foot injury, right, initial encounter Peripheral vascular disease (HCC) Peripheral vascular disease, unspecified Nutritional marasmus (HCC) Nutritional marasmus documented in this encounter [facility] note* Diagnosis Injury of head, initial encounter- Primary documented in this encounter [facility] note* Diagnosis Laceration of muscle of left hand- Primary [facility] Diagnosis Laceration of left hand without foreign body, subsequent encounter- Primary documented in this encounter [facility] note* Diagnosis Pain of right upper extremity- Primary Acute midline thoracic back pain Compression fracture of L1 vertebra, initial encounter ([facility]) documented in this encounter [facility] note* Diagnosis Acute cough- Primary documented in this encounter [facility] note* Diagnosis Left leg pain- Primary Pain in limb documented in this encounter [facility] note* Diagnosis Pain of right upper extremity Acute midline thoracic back pain documented in this encounter [facility] note* Diagnosis Pain- Primary Generalized pain Pain Generalized pain documented in this encounter [facility] note* Diagnosis Pain Generalized pain documented in this encounter [facility] note* Diagnosis Acute right ankle pain Foot injury, right, initial encounter documented in this encounter [facility] note* Diagnosis Foot injury, right, initial encounter documented in this encounter [facility] for referral (narrative)* Procedure Authorization (Routine) Status Reason Specialty Diagnoses / Procedures Referred By Contact Referred To Contact Incomplete Heart and Vascul ar Diagnostics Diagnoses Varicose veins of lower extremity with inflammation, bilateral Procedures Venous Insufficiency Study-Bilat Lower Ext Jessica Cano APRN BURNER MACHINE OPERATOR [address] [place] [address] Electronically signed by Jessica Cano APRN, CNP at [facility] for referral (narrative)* Procedure Authorization (Routine) Status Reason Specialty Diagnoses / Procedures Referred By Contact Referred To Contact Closed Heart and Vascul ar Diagnostics Diagnoses Varicose veins of lower extremity with inflammation, bilateral Procedures Venous Insufficiency Study-Bilat Lower Ext Jessica Cano APRN CNP [address] [place] [address] Electronically signed by Jessica Cano APRN, CNP at [facility] for referral (narrative)* Diagnostic Procedure Only (Urgent) - Closed Specialty Diagnoses / Procedures Referred By Contac t Referred To Contact XR IMAGING Diagnoses Foot injury, right, initial encounter Procedures XR FOOT GENERAL 3V AP/LAT/OBL RIGHT RADEX FOOT COMPLETE MINIMUM 3 VIEWS Tani Hardy APRN.BURNER MACHINE OPERATOR [address] [place] [address] Xr Imaging Referral ID Status Reason Start Date Expiration Date V isits Requested Visits Authorized [id number] Closed Auto-Generate d Referral 08/17/2022 09/16/2023 1 1 [facility] for referral (narrative)* Diagnostic Procedure Only (Urgent) - Closed Specialty Diagnoses / Procedures Referred By Contac t Referred To Contact XR IMAGING Diagnoses Acute midline thoracic back pain Procedures XR THORACIC LIMITED 2V AP/LAT RADEX SPINE THORACIC 2 VIEWS Dinora Klein APRN.BURNER MACHINE OPERATOR [address] [place] [address] [place] [address] Referral ID Status Reason Start Date Expiration Date V isits Requested Visits Authorized [id number] Closed Auto-Generate d Referral 06/03/2023 07/02/2024 1 1 * Diagnostic Procedure Only (Urgent) - Closed Specialty Diagnoses / Procedures Referred By Contac t Referred To Contact XR IMAGING Diagnoses Pain of right upper extremity Procedures XR FOREARM GENERAL 2V AP/LAT RIGHT RADEX FOREARM 2 VIEWS Dinora Klein APRN.BURNER MACHINE OPERATOR [address] [place] [address] [place] [address] Referral ID Status Reason Start Date Expiration Date V isits Requested Visits Authorized [id number] Closed Auto-Generate d Referral 06/03/2023 07/02/2024 1 1 * Diagnostic Procedure Only (Urgent) - Closed Specialty Diagnoses / Procedures Referred By Contac t Referred To Contact XR IMAGING Diagnoses Pain of right upper extremity Procedures XR HUMERUS 2V AP/LAT RIGHT RADEX HUMERUS MINIMUM 2 VIEWS Dinora Klein APRN.BURNER MACHINE OPERATOR [address] [place] [address] [place] [address] Referral ID Status Reason Start Date Expiration Date V isits Requested Visits Authorized [id number] Closed Auto-Generate d Referral 06/03/2023 07/02/2024 1 1 [facility] for referral (narrative)* Diagnostic Procedure Only (Urgent) - Closed Specialty Diagnoses / Procedures Referred By Contac t Referred To Contact XR IMAGING Diagnoses Acute midline thoracic back pain Procedures XR THORACIC LIMITED 2V AP/LAT RADEX SPINE THORACIC 2 VIEWS Dinora Klein APRN.BURNER MACHINE OPERATOR [address] [place] [address] [place] [address] Referral ID Status Reason Start Date Expiration Date V isits Requested Visits Authorized [id number] Closed Auto-Generate d Referral 06/03/2023 07/02/2024 1 1 * Diagnostic Procedure Only (Urgent) - Closed Specialty Diagnoses / Procedures Referred By Contac t Referred To Contact XR IMAGING Diagnoses Pain of right upper extremity Procedures XR FOREARM GENERAL 2V AP/LAT RIGHT RADEX FOREARM 2 VIEWS Dinora Klein APRN.BURNER MACHINE OPERATOR [address] [place] [address] [place] [address] Referral ID Status Reason Start Date Expiration Date V isits Requested Visits Authorized [id number] Closed Auto-Generate d Referral 06/03/2023 07/02/2024 1 1 * Diagnostic Procedure Only (Urgent) - Closed Specialty Diagnoses / Procedures Referred By Contac t Referred To Contact XR IMAGING Diagnoses Pain of right upper extremity Procedures XR HUMERUS 2V AP/LAT RIGHT RADEX HUMERUS MINIMUM 2 VIEWS Dinora Klein APRN.BURNER MACHINE OPERATOR [address] [place] [address] [place] [address] Referral ID Status Reason Start Date Expiration Date V isits Requested Visits Authorized [id number] Closed Auto-Generate d Referral 06/03/2023 07/02/2024 1 1 [facility] for referral (narrative)* Diagnostic Procedure Only (Urgent) - Closed Specialty Diagnoses / Procedures Referred By Contac t Referred To Contact XR IMAGING Diagnoses Pain Procedures XR RIBS/CHEST 3V AP RIB/OBLS/CXR RIGHT RADEX RIBS UNI W/POSTEROANT CH MINIMUM 3 VIEWS Orestes Hooks APRN.BURNER MACHINE OPERATOR [address] [place] [address] [place] [address] Referral ID Status Reason Start Date Expiration Date V isits Requested Visits Authorized [id number] Closed Auto-Generate d Referral 11/26/2023 12/25/2024 1 1 [facility] for referral (narrative)* Diagnostic Procedure Only (Urgent) - Closed Specialty Diagnoses / Procedures Referred By Contac t Referred To Contact XR IMAGING Diagnoses Pain Procedures XR RIBS/CHEST 3V AP RIB/OBLS/CXR RIGHT RADEX RIBS UNI W/POSTEROANT CH MINIMUM 3 VIEWS Orestes Hooks APRN.BURNER MACHINE OPERATOR [address] [place] [address] [place] [address] Referral ID Status Reason Start Date Expiration Date V isits Requested Visits Authorized [id number] Closed Auto-Generate d Referral 11/26/2023 12/25/2024 1 1 [facility] for referral (narrative)* Diagnostic Procedure Only (Urgent) - Closed Specialty Diagnoses / Procedures Referred By Contac t Referred To Contact XR IMAGING Diagnoses Acute right ankle pain Foot injury, right, initial encounter Procedures XR FOOT GENERAL 3V AP/LAT/OBL RIGHT RADEX FOOT COMPLETE MINIMUM 3 VIEWS Tani Hardy APRN.BURNER MACHINE OPERATOR [address] [place] [address] [place] [address] Referral ID Status Reason Start Date Expiration Date V isits Requested Visits Authorized [id number] Closed Auto-Generate d Referral 08/26/2022 09/25/2023 1 1 * Diagnostic Procedure Only (Urgent) - Closed Specialty Diagnoses / Procedures Referred By Contac t Referred To Contact XR IMAGING Diagnoses Acute right ankle pain Procedures XR ANKLE GENERAL 3V AP/LAT/OBL RIGHT RADEX ANKLE COMPLETE MINIMUM 3 VIEWS Tani Hardy APRN.BURNER MACHINE OPERATOR [address] [place] [address] [place] [address] Referral ID Status Reason Start Date Expiration Date V isits Requested Visits Authorized [id number] Closed Auto-Generate d Referral 08/26/2022 09/25/2023 1 1 [facility] for referral (narrative)* Diagnostic Procedure Only (Urgent) - Closed Specialty Diagnoses / Procedures Referred By Contac t Referred To Contact XR IMAGING Diagnoses Foot injury, right, initial encounter Procedures XR FOOT GENERAL 3V AP/LAT/OBL RIGHT RADEX FOOT COMPLETE MINIMUM 3 VIEWS Tani Hardy, ORTHOTIC TECHNICIAN.BURNER MACHINE OPERATOR [address] [place] [address] [place] [address] Referral ID Status Reason Start Date Expiration Date V isits Requested Visits Authorized [id number] Closed Auto-Generate d Referral 08/17/2022 09/16/2023 1 1 [facility] for visit Narrative* Procedure Authorization (Routine) Status Reason Specialty Diagnoses / Procedures Referred By Contact Referred To Contact Closed Heart and Vascul ar Diagnostics Diagnoses Varicose veins of lower extremity with inflammation, bilateral Procedures Venous Insufficiency Study-Bilat Lower Ext Jessica Cano APRN BURNER MACHINE OPERATOR [address] [address] [facility] for visit Narrative* Diagnostic Procedure Only (Urgent) - Closed Specialty Diagnoses / Procedures Referred By Contac t Referred To Contact XR IMAGING Diagnoses Acute midline thoracic back pain Procedures XR THORACIC LIMITED 2V AP/LAT RADEX SPINE THORACIC 2 VIEWS Dinora Klein, ORTHOTIC TECHNICIAN.BURNER MACHINE OPERATOR [address] [place] [address] [place] [address] Referral ID Status Reason Start Date Expiration Date V isits Requested Visits Authorized [id number] Closed Auto-Generate d Referral 06/03/2023 07/02/2024 1 1 [facility] for visit Narrative* Diagnostic Procedure Only (Urgent) - Closed Specialty Diagnoses / Procedures Referred By Contac t Referred To Contact XR IMAGING Diagnoses Pain Procedures XR RIBS/CHEST 3V AP RIB/OBLS/CXR RIGHT RADEX RIBS UNI W/POSTEROANT CH MINIMUM 3 VIEWS Orestes Hooks, ORTHOTIC TECHNICIAN.BURNER MACHINE OPERATOR [address] [place] [address] [place] [address] Referral ID Status Reason Start Date Expiration Date V isits Requested Visits Authorized [id number] Closed Auto-Generate d Referral 11/26/2023 12/25/2024 1 1 [facility] for visit Narrative* Diagnostic Procedure Only (Urgent) - Closed Specialty Diagnoses / Procedures Referred By Contac t Referred To Contact XR IMAGING Diagnoses Acute right ankle pain Foot injury, right, initial encounter Procedures XR FOOT GENERAL 3V AP/LAT/OBL RIGHT RADEX FOOT COMPLETE MINIMUM 3 VIEWS Tani Hardy, ORTHOTIC TECHNICIAN.BURNER MACHINE OPERATOR [address] [place] [address] [place] [address] Referral ID Status Reason Start Date Expiration Date V isits Requested Visits Authorized [id number] Closed Auto-Generate d Referral 08/26/2022 09/25/2023 1 1 [facility] for visit Narrative* Diagnostic Procedure Only (Urgent) - Closed Specialty Diagnoses / Procedures Referred By Contac t Referred To Contact XR IMAGING Diagnoses Foot injury, right, initial encounter Procedures XR FOOT GENERAL 3V AP/LAT/OBL RIGHT RADEX FOOT COMPLETE MINIMUM 3 VIEWS Tani Hardy, ORTHOTIC TECHNICIAN.BURNER MACHINE OPERATOR [address] [place] [address] [place] [address] Referral ID Status Reason Start Date Expiration Date V isits Requested Visits Authorized [id number] Closed Auto-Generate d Referral 08/17/2022 09/16/2023 1 1 [facility] Summary Purpose Family History No Family History Records FoundNo Family History Records FoundNo Family History Records FoundNo Family History Records FoundNo Family History Records FoundNo Family History Records Found Advance Directives Documents on File Type Date Recorded 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 Advance Directives and Living Will Power of [employer] Gauger Reason for Referral Specialty Diagnoses / Procedures Referred By Contac t Referred To Contact Podiatry Diagnoses Acute right ankle pain Foot injury, right, initial encounter Procedures CONSULT TO PODIATRY OFFICE/OUTPATIENT NEW HIGH MDM 60-74 MINUTES Tani Hardy, ORTHOTIC TECHNICIAN.BURNER MACHINE OPERATOR [address] [place] [address] Referral ID Status Reason Start Date Expiration Date Visits Requested Visits Authorized [id number] Pending Review PCP Requested Referral 08/26/2022 08/26/2023 1 1 Specialty Diagnoses / Procedures Referred By Contac t Referred To Contact XR IMAGING Diagnoses Acute right ankle pain Foot injury, right, initial encounter Procedures XR FOOT GENERAL 3V AP/LAT/OBL RIGHT RADEX FOOT COMPLETE MINIMUM 3 VIEWS Tani Hardy, EDLIIA.BURNER MACHINE OPERATOR [address] [place] [address] Xr Imaging Referral ID Status Reason Start Date Expiration Date V isits Requested Visits Authorized [id number] Closed Auto-Generate d Referral 08/26/2022 09/25/2023 1 1 Specialty Diagnoses / Procedures Referred By Contac t Referred To Contact XR IMAGING Diagnoses Acute right ankle pain Procedures XR ANKLE GENERAL 3V AP/LAT/OBL RIGHT RADEX ANKLE COMPLETE MINIMUM 3 VIEWS Tani Hardy, ORTHOTIC TECHNICIAN.BURNER MACHINE OPERATOR [address] [place] [address] Xr Imaging Referral ID Status Reason Start Date Expiration Date V isits Requested Visits Authorized [id number] Closed Auto-Generate d Referral 08/26/2022 09/25/2023 1 1 Additional Source Comments INFORMATION SOURCE (unrecogn ized section and content) DATE CREATED AUTHOR 09/01/2017 [facility] ([place]) DATE CREATED AUTHOR AUTHOR'S ORGANIZ ATION 09/06/2017 [facility] DATE CREATED AUTHOR AUTHOR'S ORGANIZ ATION 09/07/2017 [facility] DATE CREATED AUTHOR AUTHOR'S ORGANIZ ATION 05/10/2020 [facility] DATE CREATED AUTHOR AUTHOR'S ORGANIZ ATION 05/25/2020 [facility] DATE CREATED AUTHOR AUTHOR'S ORGANIZ ATION 11/28/2023 [facility] Reason for Visit (unrecogniz ed section and content) Reason Comments Referral Ernie referral, V V, pain Status Reason Specialty Diagnoses / Procedures Referred By Contact Referred To Contact Closed Heart and Vascul ar Diagnostics Diagnoses Asymptomatic varicose veins of bilateral lower extremities Tierra Klein MD [address] [place] [address] [facility] [address] [facility], [address] [place] [address] Reason Comments Pain (foot) right foot bruised [...] initial encounter Procedures CONSULT TO PODIATRY OFFICE/OUTPATIENT [facility] 60-74 MINUTES Tani Hardy APRN.BURNER MACHINE OPERATOR [address] [place] [address] Referral ID Status Reason Start Date Expiration Date Visits Requested Visits Authorized [id number] Pending Review PCP Requested Referral 08/26/2022 08/26/2023 [...] or prosecute any alcohol or drug abuse patient.[facility] the event this information is protected by the Federal Confidentiality of Alcohol and Drug Abuse Patient Records regulations: The Federal rules restrict any use of the information to criminally investigate or prosecute any alcohol or drug abuse patient.[facility] the event this information is protected by the Federal Confidentiality of Alcohol and Drug Abuse Patient Records regulations: The Federal rules restrict any use of the information to criminally investigate or prosecute any alcohol or drug abuse patient.[facility] the event this information is protected by the Federal Confidentiality of Alcohol and Drug Abuse Patient Records regulations: The Federal rules restrict any use of the information to criminally investigate or prosecute any alcohol or drug abuse patient.[facility] the event this information is protected by the Federal Confidentiality of Alcohol and Drug Abuse Patient Records regulations: The Federal rules restrict any use of the information to criminally investigate or prosecute any alcohol or drug abuse patient.[facility] the event this information is protected by the Federal Confidentiality of Alcohol and Drug Abuse Patient Records regulations: The Federal rules restrict any use of the information to criminally investigate or prosecute any alcohol or drug abuse patient.[facility] the event this information is protected by the Federal Confidentiality of Alcohol and Drug Abuse Patient Records regulations: The Federal rules restrict any use of the information to criminally investigate or prosecute any alcohol or drug abuse patient.[facility] the event this information is protected by the Federal Confidentiality of Alcohol and Drug Abuse Patient Records regulations: The Federal rules restrict any use of the information to criminally investigate or prosecute any alcohol or drug abuse patient.[facility] the event this information is protected by the Federal Confidentiality of Alcohol and Drug Abuse Patient Records regulations: The Federal rules restrict any use of the information to criminally investigate or prosecute any alcohol or drug abuse patient.[facility] the event this information is protected by the Federal Confidentiality of Alcohol and Drug Abuse Patient Records regulations: The Federal rules restrict any use of the information to criminally investigate or prosecute any alcohol or drug abuse patient.[facility] the event this information is protected by the Federal Confidentiality of Alcohol and Drug Abuse Patient Records regulations: The Federal rules restrict any use of the information to criminally investigate or prosecute any alcohol or drug abuse patient.[facility] the event this information is protected by the Federal Confidentiality of Alcohol and Drug Abuse Patient Records regulations: The Federal rules restrict any use of the information to criminally investigate or prosecute any alcohol or drug abuse patient.[facility] the event this information is protected by the Federal Confidentiality of Alcohol and Drug Abuse Patient Records regulations: The Federal rules restrict any use of the information to criminally investigate or prosecute any alcohol or drug abuse patient.[facility] the event this information is protected by the Federal Confidentiality of Alcohol and Drug Abuse Patient Records regulations: The Federal rules restrict any use of the information to criminally investigate or prosecute any alcohol or drug abuse patient.[facility] the event this information is protected by the Federal Confidentiality of Alcohol and Drug Abuse Patient Records regulations: The Federal rules restrict any use of the information to criminally investigate or prosecute any alcohol or drug abuse patient.[facility] the event this information is protected by the Federal Confidentiality of Alcohol and Drug Abuse Patient Records regulations: The Federal rules restrict any use of the information to criminally investigate or prosecute any alcohol or drug abuse patient.[facility] Care Teams (unrecognized sec tion and content) Mortar Man Relationship Specialty Start Date End Date Tierra Klein MD PCP - General Internal Medicine 02/14/17 Mortar Man Relationship Specialty Start Date End Date Tierra Klein MD PCP - General Internal Medicine 02/14/17 Mortar Man Relationship Specialty Start Date End Date Tierra Klein MD PCP - General Internal Medicine 02/14/17 Mortar Man Relationship Specialty Start Date End Date Tierra Klein MD PCP - General Internal Medicine 02/14/17 Mortar Man Relationship Specialty Start Date End Date Tierra Klein MD PCP - General Internal Medicine 02/14/17 Mortar Man Relationship Specialty Start Date End Date Tierra Klein MD PCP - General Internal Medicine 02/14/17 Mortar Man Relationship Specialty Start Date End Date Tierra Klein MD PCP - General Internal Medicine 02/14/17 Mortar Man Relationship Specialty Start Date End Date Tierra Klein MD PCP - General Internal Medicine 02/14/17 Mortar Man Relationship Specialty Start Date End Date Tierra Klein MD PCP - General Internal Medicine 02/14/17 Mortar Man Relationship Specialty Start Date End Date Tierra Klein MD PCP - General Internal Medicine 02/14/17 Mortar Man Relationship Specialty Start Date End Date Tierra Klein MD PCP - General Internal Medicine 02/14/17 Mortar Man Relationship Specialty Start Date End Date Tierra Klein MD PCP - General Internal Medicine 02/14/17 Mortar Man Relationship Specialty Start Date End Date Tierra Klein MD PCP - General Internal Medicine 02/14/17 Mortar Man Relationship Specialty Start Date End Date Tierra Klein MD PCP - General Internal Medicine 02/14/17 Mortar Man Relationship Specialty Start Date End Date Tierra [...] BE BASED ON THE PRIMARY CLINICAL RECORDS. [facility]. provides no warranty or guarantee of the accuracy or completeness of information in this document.
[2024-01-02 02:00] VITALS: BP 137/86; PULSE 76; RESP 16; TEMP 37.2; O2SAT 95
[2024-01-02 06:00] VITALS: BP 139/77; PULSE 77; RESP 16; TEMP 37.3; O2SAT 94
[2024-01-02 06:55] VITALS: O2SAT 92
--- NOTE | 2024-01-02 07:00 | MRI_ITS ---
STUDY: MRI BRAIN WITHOUT CONTRAST REASON FOR EXAM: Female, 88 years old. Right facial droop and confusion. Technologist Notes confusion, RT side facial droop, fall, hit back of head, hx CVA TECHNIQUE: Standardized multiplanar fat and water weighted pulse sequences were obtained. COMPARISON: Head CT dated January 01, 2024 FINDINGS: There is moderate cerebral atrophy with widening of the extra-axial spaces and ventricular dilatation. There are a limited number of small white matter hyperintensities, distributed throughout the deep white matter tracts of the cerebral hemispheres, consistent with mild chronic white matter ischemic changes. There is no evidence for recent intracranial ischemia or other cause of cytotoxic edema on diffusion weighted imaging (DWI). There are no demyelinating plagues of the supratentorial brain, brainstem or cerebellum. There are no findings suspicious for multiple sclerosis (MS). Normal bilateral frontal poles, and orbital frontal and gyrus recti of the frontal lobes. Normal bilateral temporal tips of the temporal lobes. There are no white matter shear injuries (diffuse axonal injuries). There are no parenchymal hemorrhages or hematomas. There are no findings to suggest prior closed head parenchymal injury of the brain. Normal bilateral basal ganglia. Normal thalami. There is no extra-axial fluid accumulation. Normal flow voids within the major intracranial circulation suggesting patency by spin echo criteria. Normal sella turcica, pituitary gland, infundibular stalk, optic chiasm and hypothalamus. Normal tectal plate and pineal gland. There are chronic white matter ischemic changes of the north. The midbrain and medulla are otherwise normal. Normal cerebellum. Normal basal cisterns. Normal bilateral temporal bones. Normal bilateral internal auditory canals. No demonstrated orbital abnormality, within the constraints of a routine brain study. Normal visualized paranasal sinuses. Normal calvarium and skull base. Normal visualized soft tissue structures. Normal visualized upper cervical spine. Mild bilateral mastoid sinus opacification noted. MRI/Brain without Contrast IMPRESSION: 1. Involutional and chronic ischemic changes of the brain, as described above. Electronically Signed: Tyshawn Espinoza MD at 11:03 EDT ,
[2024-01-02 07:37] LABS: Cholesterol 88 mg/dL (200); High Density Lipoprotein 61 mg/dL; Triglycerides 73 mg/dL; Very Low Density Lipoprotein 15 mg/dL (5-40)
[2024-01-02 09:58] VITALS: BP 118/82; PULSE 88; RESP 18; TEMP 37.1; O2SAT 93
[2024-01-02] MEDS: Escitalopram Oxalate 10 MG Tablet 5 MG PO (11:39)
[2024-01-02] MEDS: Clopidogrel Bisulfate 75 MG Tablet PO (11:39)
[2024-01-02] MEDS: Aspirin E.C. 81 MG Tablet PO (11:40)
--- NOTE | 2024-01-02 11:51 | PN.HOSP_ITS ---
Reason for Visit Reason for Visit: Diagnoses Unspecified dementia, unspecified severity, without behavioral disturbance, psychotic disturbance, mood disturbance, and anxiety (01/01/24) Facial weakness (01/01/24) Disorientation, unspecified (01/01/24) Weakness (01/01/24) Other nonspecific abnormal finding of lung field (01/01/24) Subjective Subjective Pt denies complaints. Objective Data Objective Data Vital Signs: Vital Signs Temp Pulse Resp BP Pulse Ox O2 Del Method 37.1 C 88 18 118/82 H 93 Room Air 01/02/24 09:58 01/02/24 09:58 01/02/24 09:58 01/02/24 09:58 01/02/24 09:58 01/02/24 10:00 Oxygen Delivery Method Room Air Weight: 46.6 kg Body Mass Index (BMI) 18.8 Intake & Output: Intake and Output for Last 24 Hours 12/31/23 01/01/24 01/02/24 23:59 23:59 23:59 Intake Total 486.67 / 486.67 Balance 486.67 / 486.67 Lab / Micro Data 01/01/24 18:26 01/01/24 18:26 Labs: Laboratory Results - last 24 hr 01/01/24 18:26: WBC 5.4, RBC 4.24, Hgb 12.4, Hct 38.1, MCV 89.9, MCH 29.2, MCHC 32.5, RDW Std Deviation 43.5, RDW Coeff of Devyn 13.2, Plt Count 276, MPV 9.4, Immature Gran % (Auto) 0.600, Neut % (Auto) 51.4, Lymph % (Auto) 21.3, [place] % (Auto) 25.9 H, Eos % (Auto) 0.2, Baso % (Auto) 0.6, Absolute Neuts (auto) 2.8, Absolute Lymphs (auto) 1.14, Nucleated RBC % 0, PT 13.4, INR 1.0, APTT 27.6, Sodium 141, Potassium 3.3 L, Chloride 107, Carbon Dioxide 25.0, Anion Gap 9, BUN 16, Creatinine 0.70, Estim Creat Clear Calc 36.26, Est GFR (MDRD) Af Amer 102, Est GFR (MDRD) Non-Af 84, BUN/Creatinine Ratio 22.8 H, Glucose 113 H, Calcium 9.0, Troponin I High Sens 12 01/01/24 22:45: Hemoglobin A1c 5.6, TSH 1.610, Ethyl Alcohol < 3.0 01/02/24 06:37: Triglycerides 73, Cholesterol 88, LDL Cholesterol 12, VLDL Cholesterol 15, HDL Cholesterol 61 Radiography Diagnostic Testing: Radiology Impression Brain CT 01/01/24 18:28 IMPRESSION: Chronic microvascular ischemic changes similar to the prior CT examination. No evidence of acute infarct or hemorrhage. ASPECTS: 10. Electronically Signed: Trever Bernardo DO at 18:42 EDT , ADDENDUM: 01/01/24 1856 IMPRESSION: Chronic microvascular ischemic changes similar to the prior CT examination. No evidence of acute infarct or hemorrhage. ASPECTS: 10. N.B. : The above Results were Read Back by Trever Bernardo DO to Edward Toney MD, and understanding confirmed on 01/01/2024 18:49:28 (ET). Electronically Signed: Trever Bernardo DO at 18:42 EDT , Chest X-Ray 01/01/24 18:28 IMPRESSION: 1. Right upper lobe perihilar pulmonary opacity correlating with the identified mass. 2. Hyperinflated lungs consistent with COPD. Electronically Signed: Trever Bernardo DO at 19:44 EDT , Head/Neck CTA 01/01/24 18:29 IMPRESSION: 1. No discrete evidence of large vessel occlusion or critical arterial stenosis in the head or neck. 2. Right upper lobe/perihilar mass measuring approximately 4.3 cm. 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 3. Right superior mediastinal lymphadenopathy. 4. Centrilobular emphysema. N.B. : The above Results were Read Back by Trever Bernardo DO to Edward Toney MD, and understanding confirmed on 01/01/2024 18:50:11 (ET). Electronically Signed: Trever VOmer Bernardo DO at 19:00 EDT , ADDENDUM: 01/01/24 1907 IMPRESSION: 1. No discrete evidence of large vessel occlusion or critical arterial stenosis in the head or neck. 2. Right upper lobe/perihilar mass measuring approximately 4.3 cm. 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 3. Right superior mediastinal lymphadenopathy. 4. Centrilobular emphysema. N.B. : The above Results were Read Back by Trever Bernardo DO to Edward Toney MD, and understanding confirmed on 01/01/2024 18:50:11 (ET). Electronically Signed: Trever VOmer Bernardo DO at 19:00 EDT , Echocardiogram 01/01/24 22:12 Interpretation Summary Mild concentric left ventricular hypertrophy. The left ventricular ejection fraction is 65 %. Stage 1 diastolic dysfunction. Mild tricuspid valve insufficiency. Ordering Physician: Benton Redmond Referring Physician: TIERRA PATEL Performed By: Jayashree Oconnell RCS Brain MRI 01/02/24 07:00 IMPRESSION: 1. Involutional and chronic ischemic changes of the brain, as described above. Electronically Signed: Tyshawn Espinoza MD at 11:03 EDT , Physical Exam Const alert and no apparent distress HEENT head/scalp atraumatic and moist oral mucous membranes Resp normal respiratory effort, no retractions, no use of accessory muscles and clear to auscultation bilaterally Cardio regular rate, regular rhythm, S1 normal heart sound, S2 normal heart sound and no murmurs GI normal to inspection, nondistended, normoactive bowel sounds, soft to palpation, non-tender and non-distended Extremity normal to inspection and full ROM Neuro Sensorium / Orientation: awake and alert Assessment & Plan Assessment/Plan (1) Facial droop: (2) Confusion: (3) Generalized weakness: (4) Lung mass: (5) Acute delirium: (6) Chronic dementia: PLAN: Plan Confusion * already on baby aspirin and clopidogrel * MRI brain showed involution and chronic ischemic changes of the brain. Echo shows an EF of 65%. * [facility] teleneurology felt to be worsening dementia. Right upper lobe lung mass * check CT chest. Pulm consulted. VTE prophylaxis: SCDs. Charges/Coding Visit Charges Inpatient E&M: 34110 Subs Hosp L2
--- NOTE | 2024-01-02 15:31 | CASEMGMT ---
Discharge Planning A list of SNF ?providers including quality and resource use data and consistent with the patient's preferred geographic region, medical needs, and insurance network was created in [employer] Guide.? This list was provided to the SW. Emma Frausto, Discharge Planning Asst.
[2024-01-02 15:43] VITALS: BP 126/75; PULSE 79; RESP 16; TEMP 36.8; O2SAT 93
--- NOTE | 2024-01-02 15:43 | CASEMGMT ---
Social Work This SW contacted patients daughter to discuss discharge options, home versus snf. Daughter states that patient is to be discharged home when she is able, that her and her siblings will be available to help. Zoey Calero, PRACTICE DIRECTOR, RETAIL OPERATIONS SPECIALIST
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
--- NOTE | 2024-01-02 16:06 | CASEMGMT ---
Spoke with patients daughter (Joi Mckeon) to complete GERMAIN form. GERMAIN form explained to Joi who voiced understanding. Original form placed in pt?s chart and copy placed in pts room. Emma Frausto, Discharge Planning Asst
--- NOTE | 2024-01-02 18:30 | CT_ITS ---
INDICATION: RUL lung mass EXAMINATION: CT CHEST WITH CONTRAST - CT Chest W/ Contrast Injection TECHNIQUE: Helically acquired images were obtained of the chest following IV contrast. The protocol utilizes one or more of the following dose reduction techniques: automated exposure control, adjustment of mA and/or kV according to patient size,and/or use of iterative reconstruction technique. IV Contrast dosage and agent: RADIATION DOSAGE (If Supplied By Facility): CTDIvol = ( 9.05 ) mGy, DLP = ( 166.15 ) mGycm COMPARISON: FINDINGS: LUNGS, PLEURA AND LARGE AIRWAYS: There is a right paratracheal 2.4 x 3.2 x 4.8 cm spiculated masslike density. No pleural effusion or thickening. No pneumothorax. THYROID: No thyroid lesions. HEART AND PERICARDIUM: Heart size is normal. No pericardial effusion. VESSELS: Thoracic aorta is not dilated. No aortic dissection. No obvious central pulmonary embolism although this study was not performed with the pulmonary embolism protocol. MEDIASTINUM AND MARCY: Mediastinum adenopathy. Esophagus is unremarkable. No hiatal hernia. UPPER ABDOMEN: No acute pathology. BONES: Old right rib and sternal fractures. Moderate old compression of L1. CT/Chest WITH Contrast IMPRESSION: There is a right paratracheal 2.4 x 3.2 x 4.8 cm spiculated masslike density requiring further evaluation and comparison to previous studies. Mediastinal adenopathy. Electronically Signed: Darren Robledo DO at 19:49 EDT Reading Location ID and State: [facility] / [place] Tel [phone], Service support ,
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
[2024-01-02 21:12] VITALS: BP 135/83; PULSE 73; RESP 16; TEMP 37.4; O2SAT 93
[2024-01-02] MEDS: Atorvastatin Calcium 20 MG Tablet PO (21:13)
[2024-01-02] MEDS: MELATONIN 3 MG TABLET PO (21:13)
[2024-01-03 04:09] VITALS: BP 125/75; PULSE 73; RESP 16; TEMP 36.9; O2SAT 93
[2024-01-03 08:27] VITALS: O2SAT 97
--- NOTE | 2024-01-03 09:33 | CASEMGMT ---
Discharge Planning A list of?HH providers including quality and resource use data and consistent with the patient's preferred geographic region, medical needs, and insurance network was created in [employer] Guide.? This list was provided to the RN VANDANA. Emma Frausto, Discharge Planning Asst.
[2024-01-03 09:34] VITALS: BP 88/60; PULSE 92; RESP 14; TEMP 36.4; O2SAT 96
[2024-01-03] MEDS: Escitalopram Oxalate 10 MG Tablet 5 MG PO (09:40)
[2024-01-03] MEDS: Aspirin E.C. 81 MG Tablet PO (09:40)
[2024-01-03] MEDS: Clopidogrel Bisulfate 75 MG Tablet PO (09:41)
--- NOTE | 2024-01-03 10:14 | CASEMGMT ---
Addendum entered by Isabel Robles 01/03/24 17:00: Patient was accepted by [facility]. CHANTELL ROSS notified that patient will discharge tomorrow. RN CM will updated family in the morning regarding [facility] acceptance. CM will continue to follow this patient and plan for a safe discharge. Original Note: CHANTELL ROSS in to discuss discharge planning with daughter, patient confused. Daughter states that patient will discharge home. Daughter will be staying with patient and assisting with care. Daughter states that she would like [facility] and would prefer who they had in the past. CHANTELL ROSS reviewed records and [facility] was setup in the past. Daughter denied further needs or concerns at discharge. Daughter had no further questions. CHANTELL ROSS made referral to [facility], awaiting acceptance.
--- NOTE | 2024-01-03 10:23 | PN.HOSP_ITS ---
Reason for Visit Reason for Visit: Diagnoses Unspecified dementia, unspecified severity, without behavioral disturbance, psychotic disturbance, mood disturbance, and anxiety (01/01/24) Facial weakness (01/01/24) Disorientation, unspecified (01/01/24) Weakness (01/01/24) Other nonspecific abnormal finding of lung field (01/01/24) Subjective Subjective Feeling well. Had a syncopal episode while on the toilet. Objective Data Objective Data Vital Signs: Vital Signs Temp Pulse Resp BP Pulse Ox O2 Del Method 36.4 C L 92 14 88/60 L 96 Room Air 01/03/24 09:34 01/03/24 09:34 01/03/24 09:34 01/03/24 09:34 01/03/24 09:34 01/03/24 09:34 Oxygen Delivery Method Room Air Weight: 46.6 kg Body Mass Index (BMI) 18.8 Intake & Output: Intake and Output for Last 24 Hours 01/01/24 01/02/24 01/03/24 23:59 23:59 23:59 Intake Total 1000.00 / 1000.00 Balance 1000.00 / 1000.00 Lab / Micro Data 01/01/24 18:26 01/01/24 18:26 Radiography Diagnostic Testing: Radiology Impression Echocardiogram 01/01/24 22:12 Interpretation Summary Mild concentric left ventricular hypertrophy. The left ventricular ejection fraction is 65 %. Stage 1 diastolic dysfunction. Mild tricuspid valve insufficiency. Ordering Physician: Benton Redmond Referring Physician: TIERRA PATEL Performed By: Jayashree Oconnell RCS Brain MRI 01/02/24 07:00 IMPRESSION: 1. Involutional and chronic ischemic changes of the brain, as described above. Electronically Signed: Tyshawn Espinoza MD at 11:03 EDT , Chest CT 01/02/24 18:30 IMPRESSION: There is a right paratracheal 2.4 x 3.2 x 4.8 cm spiculated masslike density requiring further evaluation and comparison to previous studies. Mediastinal adenopathy. Electronically Signed: Darren RobledoDO at 19:49 EDT , Physical Exam Const Constitutional Narrative: more alert today. HEENT head/scalp atraumatic and moist oral mucous membranes Resp normal respiratory effort and no retractions Cardio regular rate, regular rhythm, S1 normal heart sound and S2 normal heart sound GI normal to inspection, nondistended, normoactive bowel sounds, soft to palpation, non-tender and non-distended Extremity normal to inspection and full ROM Assessment & Plan Assessment/Plan (1) Confusion: (2) Lung mass: PLAN: Plan Confusion * already on baby aspirin and clopidogrel * MRI brain showed involution and chronic ischemic changes of the brain. Echo shows an EF of 65%. * [facility] felt to be worsening dementia. Right upper lobe lung mass * CT chest: shows a right paratracheal 2.4x3.2.4.8cm spiculated mass like density. Went back and reviewed image reports from 2020 where it seems to be roughly the same size at that time. Likely this is due to a slow-growing lung cancer. Given her frailty, advanced age, patient has been deemed previously (refer to Dr. Leroy's note from 2020) poor surgical candidate. * Recommended outpatient pulmonary follow-up for further routine surveillance screening. Syncope * Occurred while the patient was on the toilet today. Likely vasovagal. Will give the patient some IV fluids and reevaluate. VTE prophylaxis: SCDs. Disposition: Plan is to return home with home care. With the patient's syncopal event today, we will observe her overnight. Greater than 55 minutes of which greater than 50% of time was spent counseling the patient and her daughter at bedside about the confusion, syncope as well as a lung mass and additionally reviewing images, chart notes through [employer] and while I was in the room. Charges/Coding Visit Charges Inpatient E&M: 79898 Subs Hosp L3
[2024-01-03 11:00] VITALS: BP 117/62; PULSE 62; RESP 18; TEMP 36.4; O2SAT 96
[2024-01-03] MEDS: 0.9% Normal Saline (1000mL) 1,000 ML 999 ML IV (11:45)
[2024-01-03 14:46] VITALS: BP 106/68; PULSE 76; RESP 14; TEMP 37.1; O2SAT 96
[2024-01-03 20:45] VITALS: BP 133/97; PULSE 65; RESP 16; TEMP 36.6; O2SAT 96
[2024-01-03] MEDS: MELATONIN 3 MG TABLET PO (21:10)
[2024-01-03] MEDS: Atorvastatin Calcium 20 MG Tablet PO (21:10)
[2024-01-04] VITALS (7 sets, daily range): BP systolic 76–131; BP diastolic 57–76; PULSE 60–74; RESP 16–18; TEMP 36.4–37; O2SAT 93–97
[2024-01-04] MEDS: Escitalopram Oxalate 10 MG Tablet 5 MG PO (09:11)
[2024-01-04] MEDS: Aspirin E.C. 81 MG Tablet PO (09:11)
[2024-01-04] MEDS: Clopidogrel Bisulfate 75 MG Tablet PO (09:11)
[2024-01-04] MEDS: 0.9% Normal Saline (1000mL) 1,000 ML 250 ML IV (11:10)
[2024-01-04] MEDS: Acetaminophen 500 MG Tablet 1000 MG PO (12:02)
--- NOTE | 2024-01-04 14:33 | PN.HOSP_ITS ---
Reason for Visit Reason for Visit: Diagnoses Unspecified dementia, unspecified severity, without behavioral disturbance, psychotic disturbance, mood disturbance, and anxiety (01/04/24) Facial weakness (01/04/24) Disorientation, unspecified (01/04/24) Weakness (01/04/24) Other nonspecific abnormal finding of lung field (01/04/24) Subjective Subjective Feels well. Anxious to go home. Objective Data Objective Data Vital Signs: Vital Signs Temp Pulse Resp BP Pulse Ox O2 Del Method 37.0 C 66 18 100/66 95 Room Air 01/04/24 09:04 01/04/24 09:05 01/04/24 09:04 01/04/24 09:05 01/04/24 09:04 01/04/24 09:04 Oxygen Delivery Method Room Air Weight: 46.6 kg Body Mass Index (BMI) 18.8 Intake & Output: Intake and Output for Last 24 Hours 01/02/24 01/03/24 01/04/24 23:59 23:59 23:59 Intake Total 1000.00 / 1000.00 1220 / 1340 340 / 340 Balance 1000.00 / 1000.00 1220 / 1340 340 / 340 Lab / Micro Data 01/01/24 18:26 01/01/24 18:26 Physical Exam Const alert and no apparent distress HEENT head/scalp atraumatic and moist oral mucous membranes Resp normal respiratory effort, no retractions, no use of accessory muscles and clear to auscultation bilaterally Cardio regular rate, S1 normal heart sound and S2 normal heart sound GI normal to inspection, nondistended, normoactive bowel sounds and soft to palpation Extremity normal to inspection Neuro Sensorium / Orientation: awake and alert Assessment & Plan Assessment/Plan (1) Confusion: (2) Lung mass: PLAN: Plan Confusion * already on baby aspirin and clopidogrel * MRI brain showed involution and chronic ischemic changes of the brain. Echo shows an EF of 65%. * [facility] felt to be worsening dementia. Right upper lobe lung mass * CT chest: shows a right paratracheal 2.4x3.2.4.8cm spiculated mass like density. Went back and reviewed image reports from 2020 where it seems to be roughly the same size at that time. Likely this is due to a slow-growing lung cancer. Given her frailty, advanced age, patient has been deemed previously (refer to Dr. Leroy's note from 2020) poor surgical candidate. * Recommended outpatient pulmonary follow-up for further routine surveillance screening. Syncope * Occurred while the patient was on the toilet today. Likely vasovagal. Will give the patient some IV fluids and reevaluate. Orthostatic hypotension * + this AM but was asymptomatic. Receiving IVF. Recheck. May need midodrine if still positive VTE prophylaxis: SCDs. Disposition: Plan is to return eventually home with home care. DW patient's dtrs at bedside. Charges/Coding Visit Charges Inpatient E&M: 04390 Subs Hosp L2
[2024-01-04] MEDS: Loperamide 2 MG Capsule PO (16:51)
[2024-01-04] MEDS: Midodrine HCl 5 MG Tablet 10 MG PO (18:13)
[2024-01-04] MEDS: MELATONIN 3 MG TABLET PO (21:26)
[2024-01-04] MEDS: 0.9% Saline Lock 10 ML Syringe IV (21:26)
[2024-01-04] MEDS: Atorvastatin Calcium 20 MG Tablet PO (21:26)
[2024-01-05 03:15] VITALS: BP 118/72; PULSE 62; RESP 16; TEMP 36.9; O2SAT 95
[2024-01-05 08:12] VITALS: O2SAT 96
[2024-01-05 09:15] VITALS: BP 104/63; PULSE 67; RESP 18; TEMP 36.7; O2SAT 94
--- NOTE | 2024-01-05 09:25 | PN.HOSP_ITS ---
Reason for Visit Reason for Visit: Diagnoses Unspecified dementia, unspecified severity, without behavioral disturbance, psychotic disturbance, mood disturbance, and anxiety (01/04/24) Facial weakness (01/04/24) Disorientation, unspecified (01/04/24) Weakness (01/04/24) Other nonspecific abnormal finding of lung field (01/04/24) Subjective Subjective Feeling well. Still orthostatic, but was asymptomatic with ambulation in the halls. Objective Data Objective Data Vital Signs: Vital Signs Temp Pulse Resp BP Pulse Ox O2 Del Method 36.9 C 62 16 118/72 95 Room Air 01/05/24 03:15 01/05/24 03:15 01/05/24 03:15 01/05/24 03:15 01/05/24 03:15 01/05/24 03:15 Oxygen Delivery Method Room Air Weight: 46.6 kg Body Mass Index (BMI) 18.8 Intake & Output: Intake and Output for Last 24 Hours 01/03/24 01/04/24 01/05/24 23:59 23:59 23:59 Intake Total 1220 / 1340 1540 / 1660 120 / 120 Output Total 0 / 0 Balance 1220 / 1340 1540 / 1660 120 / 120 Lab / Micro Data 01/01/24 18:26 01/01/24 18:26 Physical Exam Const alert and no apparent distress HEENT head/scalp atraumatic and moist oral mucous membranes Assessment & Plan Assessment/Plan (1) Confusion: (2) Lung mass: PLAN: Plan Confusion * already on baby aspirin and clopidogrel * MRI brain showed involution and chronic ischemic changes of the brain. Echo shows an EF of 65%. * [facility] felt to be worsening dementia. Right upper lobe lung mass * CT chest: shows a right paratracheal 2.4x3.2.4.8cm spiculated mass like density. Went back and reviewed image reports from 2020 where it seems to be roughly the same size at that time. Likely this is due to a slow-growing lung cancer. Given her frailty, advanced age, patient has been deemed previously (refer to Dr. Leroy's note from 2020) poor surgical candidate. * Recommended outpatient pulmonary follow-up for further routine surveillance screening. Syncope * Occurred while the patient was on the toilet 01/02. Likely vasovagal and not due to orthostasis. . Orthostatic hypotension * recieved IVF and started on midodrine. Got up and ambulated in the hallway and was asymptomatic. VTE prophylaxis: SCDs. Disposition: DC home.
[2024-01-05] MEDS: Clopidogrel Bisulfate 75 MG Tablet PO (09:28)
[2024-01-05] MEDS: Aspirin E.C. 81 MG Tablet PO (09:28)
[2024-01-05] MEDS: Midodrine HCl 5 MG Tablet 10 MG PO ×2 (09:28→13:28)
[2024-01-05] MEDS: Escitalopram Oxalate 10 MG Tablet 5 MG PO (09:28)
[2024-01-05 10:55] VITALS: BP 105/60; BP 75/57; BP 97/59; PULSE 55; PULSE 58; PULSE 60
--- NOTE | 2024-01-05 13:08 | DS.PCM_ITS ---
Providers Date of Admission: 01/04/24 Primary Care Physician: Dr. Jennifer Klein MD Consultations 01/01/24 22:55 Consult: Trade Mark Examiner / Pulmonary Medicine Routine Consulting Provider: Intensivists/Pulmonary Med Reason for Consult: Right upper lobe mass on CT with history of tobacco abuse. EMERGENT Consult: No Notified: Yes Date Notified: 01/02/24 Time Notified: 08:02 Method of Notification: Answering Service Consult: Tele-Neurology Routine Consulting Provider: [facility] Reason for Consult: Acute Ischemic Stroke/TIA EMERGENT Consult: No Notified: Yes Date Notified: 01/01/24 Time Notified: 22:09 Method of Notification: ED Physician Initiated Method of Consult:: Telemedicine Nursing Unit Staff Notify [facility] of Tele-Neurology Consult: Yes Reason For Visit: RIGHT FACIAL DROOP, CONFUSION, RIGHT UPPER LOBE Diagnosis Discharge Diagnosis (1) Confusion: Status: Acute Code(s): R41.0 - Disorientation, unspecified (2) Lung mass: Status: Acute Code(s): R91.8 - Other nonspecific abnormal finding of lung field Plan Confusion * already on baby aspirin and clopidogrel * MRI brain showed involution and chronic ischemic changes of the brain. Echo shows an EF of 65%. * [facility] felt to be worsening dementia. Right upper lobe lung mass * CT chest: shows a right paratracheal 2.4x3.2.4.8cm spiculated mass like density. Went back and reviewed image reports from 2020 where it seems to be roughly the same size at that time. Likely this is due to a slow-growing lung cancer. Given her frailty, advanced age, patient has been deemed previously (refer to Dr. Leroy's note from 2020) poor surgical candidate. * Recommended outpatient pulmonary follow-up for further routine surveillance screening. Syncope * Occurred while the patient was on the toilet 01/02. Likely vasovagal and not due to orthostasis. . Orthostatic hypotension * recieved IVF and started on midodrine. Got up and ambulated in the hallway and was asymptomatic. VTE prophylaxis: SCDs. Disposition: DC home. Medications at Discharge Home Medications aspirin 81 mg tablet,delayed release 81 mg PO DAILY@0800 HE[facility] HEALTH 07/01/20 atorvastatin 20 mg tablet 20 mg PO DAILY #90 tabs 10/24/23 clopidogrel 75 mg tablet (Plavix) 75 mg PO DAILY BLOOD THINNER #90 tabs 10/24/23 escitalopram oxalate 5 mg tablet (Lexapro) 5 mg PO DAILY DEPRESSION #90 tabs 12/12/23 melatonin 3 mg tablet 3 mg PO QHS 01/01/24 loperamide 2 mg capsule 2 mg PO DAILY PRN diarrhea 01/04/24 loperamide 2 mg capsule 4 mg PO DAILY PRN diarrhea 01/04/24 acetaminophen 500 mg tablet 1,000 mg (2 x 500 mg) PO TID PRN Pain 1-10 Or Fever #0 tabs 01/05/24 food supplemt, lactose-reduced 0.08 gram-1.5 kcal/mL oral liquid (Ensure Plus High Protein) 120 ml PO 4X/DAY #60 mL 01/05/24 midodrine 5 mg tablet 10 mg (2 x 5 mg) PO TIDCM #90 tabs 01/05/24 Hospital Course Operations None Procedures 2-D Echocardiogram Summary of Care Provided Minutes Spent on Discharge: 32 Hospital Course: Patient presented with a fall hit her head was confused and was noted to have right facial droop. Symptoms did resolve though the patient was confused for period of time. Question if that was some postconcussion syndrome. But patient underwent an MRI that showed no acute process. Patient was seen by neurology who did not feel this is a stroke and may have been just progression of her dementia but patient appears to be back to her baseline which is why I think that there may have been some postconcussion syndrome. When they did the CT of the head neck and noted a right upper lobe mass. I reviewed the records, this has been present some years before and did have a formal CT that showed a right upper lobe mass but reviewing previous CTs did not appear to be much advanced beyond that. Patient previously seen pulmonology and was not felt to be a good candidate for any kind of intervention. Discussed with family and feel that this can be further monitored with further outpatient pulmonary evaluation but likely, given the patient's age she would not be an ideal candidate to undergo any kind of intervention including lobectomy, chemo etc. Patient had a syncopal episode while she was on the commode. Patient was sitting and not standing at that time. We did check orthostatic vital signs and it was actually positive. When she would stand up she would actually be asymptomatic. Patient was started on midodrine and observed. Even after starting the midodrine, she still had orthostatic hypotension but was asymptomatic. Patient will be discharged home and will continue with midodrine. Patient to be discharged home with home care. Weight / BMI Weight Weight: 46.6 kg Body Mass Index (BMI) 18.8 ABG / Lab / Microbiology Data 01/01/24 18:26 01/01/24 18:26 Laboratory: Laboratory Results - last 24 hr 01/02/24 06:37: Influenza Type A Ag Cancelled, Influenza Type B Ag Cancelled D/C Instructions Discharge Diet: No restrictions Meaningful Use Info Meaningful Use Meaningful Use Diagnoses (Choose all that apply): None applicable Ischemic Stroke Statin Dosing Therapy Reference: STATIN DOSE THERAPY REFERENCE: * Patients > 75 years receive moderate or high dose statin therapy. * Patients 75 years or YOUNGER should receive HIGH intensity statin dose unless contraindicated. You will be required to document reason for non-treatment if statin daily dose does not meet guidelines. HIGH DOSE STATIN THERAPY DAILY Atorvastatin > than or = to 40 mg Rosuvastatin > than or = to 20 mg Amlodipine + Atorvastatin > than or = to 2.5/40 mg Ezetimibe + Simvastatin 10/80 mg Simvastatin 80mg Discharge Plan Admission Admit Date/Time: 01/04/24 14:19 Primary Reason for Your Visit: confusion Attending Provider: Jasiel Rousseau Primary Care Provider: Jennifer Klein Consulting Providers: Benton Redmond; Juwan Thao; Jonatan Antoine; Gerry Blanchard; Benton Swann; German Crouch; Josh Smith; Leila Govea; Anoop Muro; Rayshawn Flores; Wendi Johnson; Cara Alarcon; Phuc,Jj; Jovanny Jimenez; Mckay Duncan; Shanna Morrell; Srikanth Jacobson; Krishan Hardin; Aidan Mattson; Holley Brower; Roxy Bolton; Kym Phillips; Sakina Hill; Manjeet Malik; Norma Carrero; Donny Anderson; Geo Larry; Dillan Jerry; Kylah Thornton; Hero Russell; Aminata Sepulveda; Jamel Dan; Ryan Watson; Froilan Ferrell; Blanca Bergeron; Derrick Kaur; Kayla Mehta; Zaki Florian Instructions Additional Instructions / Restrictions: Your workup was negative for stroke. Your blood pressure drops when you stand up. I have added a medication called midodrine to help with that. The concern is if you stand up too quickly, your blood pressure may drop and you could potentially pass out so if you do get up, get up slowly. You do have a right upper lobe mass this is concerning for cancer but this was seen back in 2020. You may follow-up with pulmonary for further monitoring. Discharge Orders/Prescriptions Prescriptions: New midodrine 5 mg Tablet 10 mg PO TIDCM Qty: 90 0RF acetaminophen 500 mg Tablet 1,000 mg PO TID PRN (Reason: Pain 1-10 Or Fever) Qty: 0 0RF Ensure Plus High Protein 0.08 gram-1.5 kcal/mL Liquid 120 ml PO 4X/DAY Qty: 60 0RF Continued aspirin 81 MG tablet,delayed release (DR/EC) 81 mg PO DAILY@0800 melatonin 3 mg tablet 3 mg PO QHS loperamide 2 mg capsule 4 mg PO DAILY PRN (Reason: diarrhea) loperamide 2 mg capsule 2 mg PO DAILY PRN (Reason: diarrhea) Rx Instructions: pt takes 4mg daily. If pt has diarrhea within 30 minutes of taking 4mg pt takes 2mg x1 dose. atorvastatin 20 mg tablet 20 mg PO DAILY Qty: 90 1RF clopidogrel [Plavix] 75 mg tablet 75 mg PO DAILY Qty: 90 3RF escitalopram oxalate [Lexapro] 5 mg tablet 5 mg PO DAILY Qty: 90 3RF Referrals / Follow Up: Pulmonary Medicine [facility] [Provider Group] - Within 3 Months Jennifer Klein MD [Primary Care Provider] - Within 2 Weeks Disposition Disposition (needs filled in before D/C Order can be placed): Home Health Service Charges/Coding Visit Charges Inpatient E&M: 27982 Disch Hosp >30min
[2024-01-05 13:26] VITALS: BP 111/68; PULSE 60; RESP 18; TEMP 36.8; O2SAT 96
--- NOTE | 2024-01-05 13:43 | CASEMGMT ---
Patient has order for discharge. RN VANDANA called [facility] and updated regarding discharge, start of care planned for Tuesday. RN CM in to update patient and daughter. Daughter denied further needs or concerns. Daughter had no further questions.
== END 2024-01-05 14:00 | disposition home health service (06) | DRG 312 ==
LOC: ED 21:50 → PCU 01-02 00:27
PROVIDERS: Admitting Provider Internal Medicine; Emergency Provider Emergency Medicine; PCP Internal Medicine
DX: I95.1 Orthostatic hypotension (principal); E78.5 Hyperlipidemia, unspecified; J43.2 Centrilobular emphysema; F03.90 Unspecified dementia, unspecified severity, without behavioral disturbance, psychotic disturbance, mood disturbance, and anxiety; E86.0 Dehydration; F17.210 Nicotine dependence, cigarettes, uncomplicated; Z86.73 Personal history of transient ischemic attack (TIA), and cerebral infarction without residual deficits; Z90.710 Acquired absence of both cervix and uterus; R59.0 Localized enlarged lymph nodes; Z79.1 Long term (current) use of non-steroidal anti-inflammatories (NSAID); Z79.83 Long term (current) use of bisphosphonates; R29.810 Facial weakness; Z79.02 Long term (current) use of antithrombotics/antiplatelets; R91.8 Other nonspecific abnormal finding of lung field
CPT/HCPCS: 36415; 70450; 70496; 70498; 70551; 71045; 71260; 80048; 80061; 82077; 83036; 84443; 84484; 85025; 85610; 85730; 86710; 92507; 92526; 92610; 93005; 93306; 94762; 97116; 97162; 97166; 97530; 97535; 97802; 99285; J7030; Q9967; A4216

== ENCOUNTER 2024-01-08 09:48 | Inpatient (IN) | payer MEDICARE, SELFPAY ==
[2024-01-08] VITALS (10 sets, daily range): BP systolic 73–135; BP diastolic 51–87; PULSE 57–68; RESP 14–18; TEMP 36.4–37.3; O2SAT 92–98; BMI 19.1
--- NOTE | 2024-01-08 10:59 | EKG12_ITS ---
Test Reason : SYNCOPE Blood Pressure : / mmHG Vent. Rate : 057 BPM Atrial Rate : 057 BPM P-R Int : 152 ms QRS Dur : 140 ms QT Int : 478 ms P-R-T Axes : 070 -48 000 degrees QTc Int : 465 ms Sinus bradycardia Right bundle branch block Left anterior fascicular block Bifascicular block Minimal voltage criteria for LVH, may be normal variant ( R in aVL ) Abnormal ECG Confirmed by SRIRAM MARTINEZ, CHARLEEN ([id number]), purchasing expeditor TONIA TANNER ([id number]) on 01/10/2024 7:51:40 AM Referred By: CHARLETTE Confirmed By:CHARLEEN BHATIA MD
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
[2024-01-08 11:07] LABS: Absolute Lymphocyte Count 1.48 X10^3/uL (0.83-4.51); Absolute Neutrophil Count 1.8 X10^3/uL (2.0-7.7); Basophil# 0.01 X10^3/uL; Basophil% 0.2 % (0-1); Eosinophil# 0.02 X10^3/uL; Eosinophils% 0.5 % (0-5); Hematocrit 38.6 % (37-47); Hemoglobin 12.4 g/dL (12.0-15.0); Lymphocyte # 1.48 X10^3/ul (0.83-4.51); Lymphocyte % 36.8 % (19-41); Mean Corp Hgb Conc 32.1 g/dL (32-36); Mean Corpuscular Hgb 29.2 pg (27.0-32.0); Mean Corpuscular Volume 90.8 fL (81-99); Mean Platelet Vol. 9.8 fl (6.2-12.0); Monocyte# 0.66 X10^3/uL; Monocyte% 16.4 % (0-10); NRBC Flagged by Analyzer 0 % (0-5); Neutrophil # 1.84 X10^3/uL (2.7-7.7); Neutrophil % 45.9 % (47-70); Platelet Count 206 K/mm3 (150-450); RBC Distribution Width CV 13.3 % (11.6-14.6); RBC Distribution Width SD 44.3 fl (35.1-43.9); Red Blood Count 4.25 M/mm3 (4.2-5.4)
--- NOTE | 2024-01-08 11:20 | RAD_ITS ---
STUDY: X-RAY CHEST REASON FOR EXAM: Female, 88 years old. chest pain TECHNIQUE: Single AP portable view of the chest. COMPARISON: January 01, 2024 FINDINGS: COPD/emphysema is present. No visualized consolidation. The lungs are clear and expanded. There is no demonstrated pleural abnormality. Normal size heart. Normal mediastinum and marvin. Normal visualized pulmonary arteries. There is atherosclerotic calcification of the aortic arch with tortuosity. There are diffuse degenerative changes of the visualized thoracic spine. Normal visualized ribs, clavicles, and shoulders. There is no demonstrated abnormality of the visualized soft tissue structures of the upper abdomen. RAD/Chest 1 View (Portable) IMPRESSION: COPD/emphysema Electronically Signed: Tyshawn Espinoza MD at 11:59 EDT ,
[2024-01-08 11:24] LABS: Anion Gap 6 (5-15); BUN 18 mg/dL (7-18); BUN/Creat Ratio 23.9 RATIO (10-20); Calcium,Total 8.6 mg/dL (8.5-10.1); Chloride 111 mmol/L (98-107); Creatinine, Serum 0.75 mg/dL (0.55-1.02); EST Glomerular Filtration Rate 77 mL/min (>60); Est Glom Filt Rate - Afr Amer 94 mL/min (>60); Estimated Creatinine Clearance 37.77 ml/min; Glucose 105 mg/dL (74-106); Potassium 3.3 mmol/L (3.5-5.1); Sodium Level 142 mmol/L (136-145); Troponin-I HS 32 pg/mL (3.0-54.0)
--- NOTE | 2024-01-08 12:26 | CT_ITS ---
STUDY: CTA CHEST REASON FOR EXAM: Female, 88 years old. Hypoxia w/ PE Hx RADIATION DOSAGE (If Supplied By Facility): CTDIvol = ( 4.97 ) mGy, DLP = ( 287.83 ) mGycm TECHNIQUE: The examination was performed with the intravenous administration of IV 100mL [id number]-[id number]. Post-processing of the angiographic images was performed, with multiplanar reformation and 3D reconstruction. Individualized dose optimization techniques were used for this CT. COMPARISON: PET/CT exam dated April 01, 2020. CT of the chest dated January 02, 2024 FINDINGS: * Redemonstration of 3.54 x 3.03 cm spiculated malignant appearing mass in the apex and medial aspect of the right upper lobe abutting the tracheal column * No additional nodules/metastatic lesions are seen on the current study * Redemonstration of diffuse cystic emphysematous changes and mild groundglass edema * No visualized pneumonic consolidation * Scattered interstitial fibrosis bilaterally redemonstrated. * No pleural effusion is present. Normal enhancement of the main pulmonary artery and right and left pulmonary arteries. Normal enhancement of the bilateral peripheral pulmonary arteries. There is no demonstrated pulmonary embolism. There is atherosclerotic calcification of the aortic arch with tortuosity. There is no demonstrated aortic dissection. Normal heart and pericardium. There are no demonstrated calcifications of the coronary arteries. Normal mediastinum. Normal hilar regions. Normal visualized trachea and bronchi. Normal chest wall structures. There are degenerative changes of thoracic spine. Included upper abdomen: Redemonstration of moderate intrahepatic biliary duct dilatation/post cholecystectomy dilatation. The remaining visualized structures are stable. Chronic L1 vertebral body compression deformity. CT/CTA Chest W/WO Contrast IMPRESSION: 1. Redemonstration of 3.54 x 3.03 cm spiculated malignant appearing mass in the apex and medial aspect of the right upper lobe abutting the tracheal column 2. No additional nodules/metastatic lesions are seen on the current study 3. Redemonstration of diffuse cystic emphysematous changes and mild groundglass edema 4. No visualized pneumonic consolidation 5. Scattered interstitial fibrosis bilaterally redemonstrated. 6. No pleural effusion is present. 7. Consult pulmonology/oncology or interventional radiology for image guided biopsy of the mass or PET/CT evaluation to determine if there is any malignant activity in the mass. No demonstrated pulmonary embolism or arterial dissection. Electronically Signed: Tyshawn Espinoza MD at 14:19 EDT ,
[2024-01-08] MEDS: 0.9% Normal Saline (1000mL) 1,000 ML 999 ML IV (15:11)
--- NOTE | 2024-01-08 15:19 | NURSING ---
PCU [facility] COVID, ORTHOSTATIC HYPOTENSION, FAILURE TO THRIVE, WEAKNESS, UNABLE TO WALK
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
[2024-01-08] MEDS: 0.9% Normal Saline (1000mL) 1,000 ML 50 ML IV (16:30)
[2024-01-08] MEDS: Midodrine HCl 5 MG Tablet 10 MG PO (17:13)
[2024-01-08] MEDS: Potassium Chloride Oral Soln 20 MEQ/15 ML UDC PO (17:13)
[2024-01-08] MEDS: MELATONIN 3 MG TABLET PO (21:52)
[2024-01-09] VITALS (8 sets, daily range): BP systolic 82–187; BP diastolic 62–83; PULSE 54–87; RESP 16–19; TEMP 36.6–37.2; O2SAT 93–96
[2024-01-09 05:13] LABS: Mucous, Urine 0 SEEN /hpf (<or=2+); Red Blood Cells-Urine 0 SEEN /hpf (0-5); Squamous Epithelial Cells - UA 0 SEEN /hpf (5-10)
[2024-01-09 05:16] LABS: Color, Urine Yellow (Yellow); Glucose, Dipstick Normal (Normal); Ketone-Dipstick 5 mg/dl (Negative); Leukocyte Esterase-Dipstick 100 /ul (Negative); Nitrite-Dipstick Positive (Negative); Occult Blood-Urine 25 /ul (Negative); Protein-Dipstick 30 mg/dl (Negative); Specific Gravity, Urine 1.015 (1.002-1.030); Urine Bilirubin Dipstick Negative (Negative); Urine Clarity Clear (Clear); Urine Urobilinogen Normal (Normal)
[2024-01-09 05:27] LABS: Bacteria 3+ /hpf (None Seen); White Blood Cells 0-5 SEEN /hpf (0-5)
[2024-01-09 05:43] LABS: Absolute Lymphocyte Count 1.04 X10^3/uL (0.83-4.51); Absolute Neutrophil Count 2.8 X10^3/uL (2.0-7.7); Basophil# 0.02 X10^3/uL; Basophil% 0.4 % (0-1); Eosinophil# 0.01 X10^3/uL; Eosinophils% 0.2 % (0-5); Hemoglobin 11.3 g/dL (12.0-15.0); Lymphocyte # 1.04 X10^3/ul (0.83-4.51); Lymphocyte % 22.4 % (19-41); Mean Corp Hgb Conc 32.3 g/dL (32-36); Mean Corpuscular Hgb 29.1 pg (27.0-32.0); Mean Corpuscular Volume 90.2 fL (81-99); Mean Platelet Vol. 9.6 fl (6.2-12.0); Monocyte# 0.79 X10^3/uL; NRBC Flagged by Analyzer 0 % (0-5); Neutrophil # 2.77 X10^3/uL (2.7-7.7); Neutrophil % 59.6 % (47-70); Platelet Count 217 K/mm3 (150-450); RBC Distribution Width CV 13.3 % (11.6-14.6); Red Blood Count 3.88 M/mm3 (4.2-5.4); White Blood Count 4.7 K/mm3 (4.4-11.0)
[2024-01-09] MEDS: NORMAL SALINE 0.9% IV ×3 (06:39→22:50)
[2024-01-09] MEDS: AZTREONAM IV ×3 (06:39→22:50)
[2024-01-09 07:05] LABS: Anion Gap 6 (5-15); BUN 13 mg/dL (7-18); BUN/Creat Ratio 23.6 RATIO (10-20); Calcium,Total 8.3 mg/dL (8.5-10.1); Chloride 116 mmol/L (98-107); Creatinine, Serum 0.55 mg/dL (0.55-1.02); EST Glomerular Filtration Rate 111 mL/min (>60); Est Glom Filt Rate - Afr Amer 134 mL/min (>60); Estimated Creatinine Clearance 37.77 ml/min; Glucose 89 mg/dL (74-106); Sodium Level 143 mmol/L (136-145)
[2024-01-09] MEDS: Aspirin E.C. 81 MG Tablet PO (08:35)
[2024-01-09] MEDS: Clopidogrel Bisulfate 75 MG Tablet PO (08:35)
[2024-01-09] MEDS: Enoxaparin 40 MG/0.4 ML Syringe SC (08:35)
[2024-01-09] MEDS: Escitalopram Oxalate 10 MG Tablet 5 MG PO (08:35)
[2024-01-09] MEDS: Midodrine HCl 5 MG Tablet 10 MG PO ×2 (08:42→13:03)
--- NOTE | 2024-01-09 10:43 | NURSING ---
Dr. Gray wanted ortho vitals taken but pt was too weak and could not tolerate standing for long. pt did have diarrhea twice in the same time frame.
--- NOTE | 2024-01-09 11:45 | CASEMGMT ---
CHANTELL ROSS Chart review: Patient was admitted 12/31-01/05/24 for confusion, syncope, and orthostatic hypotension. See CM note from 01/03/24. Patient was discharged to home with family support, [facility] with start of care for 01/09/24, and follow-up plans in place. Patient returned to [facility] ED on 01/08/24 after near syncope at home. Patient was admitted for presyncope weakness, orthostatic, hypotension, and covid. Patient is confused and has dementia at baseline. CHANTELL ROSS met with daughter Joi to discuss readmission. Per Joi, herself and her brother were staying with patient to help with care. Per Joi patient was taking medications as prescribed. Joi states that patient was having some weakness at home and needing increase help at home and was not eating much. Per Joi, her brother was with the patient Tuesday morning giving the patient her pills when she passed out and came to the ED. Joi states that they would like patient to return home if able with HHC but willing to consider SNF if indicated but is not preferred. Joi had no further questions or concerns. CM will continue to follow this patient and plan for safe discharge.
--- NOTE | 2024-01-09 12:40 | PN_ITS ---
Subjective Subjective Patient seen and examined. She remains very weak. She had no active complaints. She denies any nausea or vomiting, shortness of breath or any other symptoms. Review of systems otherwise negative. Attempts at checking orthostatics was admitted and her blood pressure dropped to 82/62 just with sitting up. She was too weak to stand up. Objective Data Objective Data Vital Signs: Vital Signs Temp Pulse Resp BP Pulse Ox O2 Del Method 98.8 F 64 16 138/83 H 93 Room Air 01/09/24 08:34 01/09/24 10:29 01/09/24 08:34 01/09/24 10:29 01/09/24 08:34 01/09/24 08:34 Oxygen Delivery Method Room Air Weight: 104 lb 7.986 oz Body Mass Index (BMI) 19.1 Intake & Output: Intake and Output for Last 24 Hours 01/07/24 01/08/24 01/09/24 23:59 23:59 23:59 Intake Total 1100 / 1100 340 / 340 Output Total 225 / 225 Balance 1100 / 1100 115 / 115 Lab / Micro Data 01/09/24 05:35 01/09/24 05:35 Labs: Laboratory Results - last 24 hr 01/09/24 05:00: Urine Color Yellow, Urine Clarity Clear, Urine pH 5.0, Ur Specific [place] 1.015, Urine Protein 30 H, Urine Glucose (UA) Normal, Urine Ketones 5 H, Urine Occult Blood 25 H, Urine Nitrite Positive H, Urine Bilirubin Negative, Urine Urobilinogen Normal, Ur Leukocyte Esterase 100 H, Urine RBC 0 SEEN, Urine WBC 0-5 SEEN, Ur Squamous Epith Cells 0 SEEN, Urine Bacteria 3+, Urine Mucus 0 SEEN 01/09/24 05:35: WBC 4.7, RBC 3.88 L, Hgb 11.3 L, Hct 35.0 L, MCV 90.2, MCH 29.1, MCHC 32.3, RDW Std Deviation 44.0 H, RDW Coeff of Devyn 13.3, Plt Count 217, MPV 9.6, Immature Gran % (Auto) 0.400, Neut % (Auto) 59.6, Lymph % (Auto) 22.4, [place] % (Auto) 17.0 H, Eos % (Auto) 0.2, Baso % (Auto) 0.4, Absolute Neuts (auto) 2.8, Absolute Lymphs (auto) 1.04, Nucleated RBC % 0, Sodium 143, Potassium 3.0 L, C hloride 116 H, Carbon Dioxide 21.0, Anion Gap 6, BUN 13, Creatinine 0.55, Estim Creat Clear Calc 37.77, Est GFR (MDRD) Af Amer 134, Est GFR (MDRD) Non-Af 111, B UN/Creatinine Ratio 23.6 H, Glucose 89, Calcium 8.3 L Micro: Microbiology 01/09/24 05:00 Stool C. difficile GDH Antigen & Toxins - Final 01/09/24 05:00 Stool Clostridioides difficile (PCR) - Final 01/08/24 12:24 Mucosa - Nose SARS-CoV-2, Influenza & RSV (PCR) - Final SARS-CoV-2 (COVID 19 PCR) Radiography Diagnostic Testing: Radiology Impression Chest CTA 01/08/24 12:26 IMPRESSION: 1. Redemonstration of 3.54 x 3.03 cm spiculated malignant appearing mass in the apex and medial aspect of the right upper lobe abutting the tracheal column 2. No additional nodules/metastatic lesions are seen on the current study 3. Redemonstration of diffuse cystic emphysematous changes and mild groundglass edema 4. No visualized pneumonic consolidation 5. Scattered interstitial fibrosis bilaterally redemonstrated. 6. No pleural effusion is present. 7. Consult pulmonology/oncology or interventional radiology for image guided biopsy of the mass or PET/CT evaluation to determine if there is any malignant activity in the mass. No demonstrated pulmonary embolism or arterial dissection. Electronically Signed: Tyshawn Espinoza MD at 14:19 EDT Reading Location ID and State: [facility] / [place] , Service support , Rhythm Strip Rhythm Strip: Sinus bradycardia Rate: 57 Ectopy: None Physical Exam Const alert, oriented x3 and no apparent distress Constitutional Narrative: frail and weak General Appearance: cooperative and well developed HEENT normocephalic and head/scalp atraumatic Mouth: dry mucous membranes Eyes PERRL and EOMs intact bilaterally Neck no lymphadenopathy and supple Lymph Lymphatic: no lymphadenopathy noted and no lymphedema noted Resp normal respiratory effort, normal air movement and clear to auscultation bilaterally Cardio regular rate, regular rhythm, S1 normal heart sound, S2 normal heart sound and no murmurs GI normal to inspection, nondistended, normoactive bowel sounds, soft to palpation, non-tender and non-distended Extremity normal capillary refill, no clubbing, cyanosis or edema and no calf tenderness General Extremity: no tenderness to palpation of joints or extremities Skin General Skin Exam: no breakdown Neuro CN's II-XII intact bilaterally and no focal motor deficits Motor Exam: general weakness Psych thought process normal and cooperative Appearance: appropriate Assessment & Plan Assessment/Plan (1) Adult failure to thrive: (2) Orthostatic hypotension: (3) COVID: PLAN: Plan #Debility and weakness due to orthostatic hypotension * Patient still very weak and frail. Orthostatics were again positive today with blood pressure dropping to 82/62. * She has been aggressively hydrated with IV fluids. COVID was also positive and may be contributing to weakness and lethargy. However she is asymptomatic from the respiratory standpoint. * Continue midodrine. If orthostatics persist, will add on fludrocortisone. * She did have an echo just about a week ago for stroke workup which showed EF of 65% with stage I diastolic dysfunction and negative bubble study. * PT OT on board. Fall precautions. * #COVID-19 infection * Patient tested positive for COVID but she is asymptomatic and is not short of breath. She is however very weak and this could be contributing. * Will monitor. #UTI: * Urinalysis does show 3+ bacteria and urine nitrites were positive with elevated leukocyte esterase as well. * Patient currently on IV aztreonam due to her allergies. Await urine cultures. 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 Follow-up with pulmonology on outpatient basis. #History of dementia: Stable #Depression and anxiety: On escitalopram #Hypokalemia: Potassium is 3 today. Ordered replace aggressively and trend. Charges/Coding Visit Charges Inpatient E&M: 67748 Subs Hosp L3
[2024-01-09] MEDS: 0.9% Normal Saline (1000mL) 1,000 ML 999 ML IV (12:58)
[2024-01-09] MEDS: 0.9% Normal Saline (1000mL) 1,000 ML 150 ML IV ×2 (14:26→22:50)
--- NOTE | 2024-01-09 15:00 | NURSING ---
Pt voided once. This RN thinks she is dry and she is not eating and drinking. This RN Bladder scanned pt for 87ml. Will continue to monitor.
[2024-01-09] MEDS: Ensure Clear 120 ML Liquid PO (17:37)
[2024-01-09] MEDS: Atorvastatin Calcium 20 MG Tablet PO (22:51)
[2024-01-09] MEDS: MELATONIN 3 MG TABLET PO (22:51)
[2024-01-10 03:00] VITALS: BP 123/68; PULSE 67; RESP 16; TEMP 36.7; O2SAT 94
[2024-01-10] MEDS: NORMAL SALINE 0.9% IV ×3 (05:25→21:41)
[2024-01-10] MEDS: AZTREONAM IV ×3 (05:25→21:41)
[2024-01-10 09:00] VITALS: BP 135/62; PULSE 75; RESP 18; TEMP 36.5; O2SAT 95
[2024-01-10 09:04] LABS: Absolute Lymphocyte Count 1.02 X10^3/uL (0.83-4.51); Basophil# 0.01 X10^3/uL; Basophil% 0.3 % (0-1); Eosinophil# 0.01 X10^3/uL; Eosinophils% 0.3 % (0-5); Hematocrit 32.5 % (37-47); Hemoglobin 10.6 g/dL (12.0-15.0); Lymphocyte # 1.02 X10^3/ul (0.83-4.51); Lymphocyte % 27.4 % (19-41); Mean Corp Hgb Conc 32.6 g/dL (32-36); Mean Corpuscular Hgb 28.8 pg (27.0-32.0); Mean Corpuscular Volume 88.3 fL (81-99); Mean Platelet Vol. 9.4 fl (6.2-12.0); Monocyte# 0.64 X10^3/uL; Monocyte% 17.2 % (0-10); NRBC Flagged by Analyzer 0 % (0-5); Neutrophil # 2.03 X10^3/uL (2.7-7.7); Neutrophil % 54.5 % (47-70); Platelet Count 213 K/mm3 (150-450); RBC Distribution Width CV 12.9 % (11.6-14.6); RBC Distribution Width SD 41.8 fl (35.1-43.9); Red Blood Count 3.68 M/mm3 (4.2-5.4); White Blood Count 3.7 K/mm3 (4.4-11.0)
[2024-01-10] MEDS: Ensure Clear 120 ML Liquid PO ×4 (09:05→21:41)
[2024-01-10] MEDS: Escitalopram Oxalate 10 MG Tablet 5 MG PO (09:06)
[2024-01-10] MEDS: Midodrine HCl 5 MG Tablet 10 MG PO ×3 (09:06→17:17)
[2024-01-10] MEDS: Enoxaparin 40 MG/0.4 ML Syringe SC (09:07)
[2024-01-10] MEDS: Clopidogrel Bisulfate 75 MG Tablet PO (09:07)
[2024-01-10] MEDS: Aspirin E.C. 81 MG Tablet PO (09:07)
[2024-01-10 09:21] VITALS: BP 108/62; BP 135/62; BP 158/77; PULSE 69; PULSE 75
[2024-01-10 09:45] LABS: Anion Gap 10 (5-15); BUN 7 mg/dL (7-18); BUN/Creat Ratio 16.6 RATIO (10-20); Calcium,Total 7.6 mg/dL (8.5-10.1); Chloride 108 mmol/L (98-107); Creatinine, Serum 0.42 mg/dL (0.55-1.02); EST Glomerular Filtration Rate 152 mL/min (>60); Est Glom Filt Rate - Afr Amer 183 mL/min (>60); Estimated Creatinine Clearance 37.77 ml/min; Glucose 82 mg/dL (74-106); Potassium 2.4 mmol/L (3.5-5.1); Sodium Level 139 mmol/L (136-145)
--- NOTE | 2024-01-10 12:00 | PN_ITS ---
Subjective Subjective Patient seen and examined. She still feels weak and frail. She denies any nausea, vomiting, fever or chills. REview of systems is otherwise negative. Potassium was 2.4 today. ORthostatics are still positive. Objective Data Objective Data Vital Signs: Vital Signs Temp Pulse Resp BP Pulse Ox O2 Del Method 97.7 F L 69 18 135/62 H 95 Room Air 01/10/24 09:00 01/10/24 09:21 01/10/24 09:00 01/10/24 09:21 01/10/24 09:00 01/10/24 09:47 Oxygen Delivery Method Room Air Weight: 104 lb 7.986 oz Body Mass Index (BMI) 19.1 Intake & Output: Intake and Output for Last 24 Hours 01/08/24 01/09/24 01/10/24 23:59 23:59 23:59 Intake Total 1100 / 1100 3640.0 / 3640.0 1350 / 1350 Output Total 225 / 425 400 / 400 Balance 1100 / 1100 3415.0 / 3215.0 950 / 950 Lab / Micro Data 01/10/24 08:36 01/10/24 08:36 Labs: Laboratory Results - last 24 hr 01/10/24 08:36: WBC 3.7 L, RBC 3.68 L, Hgb 10.6 L, Hct 32.5 L, MCV 88.3, MCH 28.8, MCHC 32.6, RDW Std Deviation 41.8, RDW Coeff of Devyn 12.9, Plt Count 213, MPV 9.4, Immature Gran % (Auto) 0.300, Neut % (Auto) 54.5, Lymph % (Auto) 27.4, [place] % (Auto) 17.2 H, Eos % (Auto) 0.3, Baso % (Auto) 0.3, Absolute Neuts (auto) 2.0, Absolute Lymphs (auto) 1.02, Nucleated RBC % 0, Sodium 139, Potassium 2.4 L*, Chloride 108 H, Carbon Dioxide 21.0, Anion Gap 10, BUN 7, Creatinine 0.42 L, Estim Creat Clear Calc 37.77, Est GFR (MDRD) Af Amer 183, Est GFR (MDRD) Non-Af 152, BUN/Creatinine Ratio 16.6, Glucose 82, Calcium 7.6 L Micro: Microbiology 01/09/24 05:00 Urine Catheter - Catheter Urine Culture - Preliminary Presumptive E. coli 01/09/24 04:45 Stool Enteric Bacteriology - Final 01/09/24 05:00 Stool C. difficile GDH Antigen & Toxins - Final 01/09/24 05:00 Stool Clostridioides difficile (PCR) - Final 01/08/24 12:24 Mucosa - Nose SARS-CoV-2, Influenza & RSV (PCR) - Final SARS-CoV-2 (COVID 19 PCR) Rhythm Strip Rhythm Strip: Sinus bradycardia Rate: 57 Ectopy: None Physical Exam Const alert, oriented x3 and no apparent distress Constitutional Narrative: frail and weak General Appearance: cooperative and well developed HEENT normocephalic and head/scalp atraumatic Eyes PERRL and EOMs intact bilaterally Neck no lymphadenopathy and supple Lymph Lymphatic: no lymphadenopathy noted and no lymphedema noted Resp normal respiratory effort, normal air movement and clear to auscultation bilaterally Cardio regular rate, regular rhythm, S1 normal heart sound, S2 normal heart sound and no murmurs GI normal to inspection, nondistended, normoactive bowel sounds, soft to palpation, non-tender and non-distended Extremity normal capillary refill, no clubbing, cyanosis or edema and no calf tenderness General Extremity: no tenderness to palpation of joints or extremities Skin General Skin Exam: no breakdown Neuro CN's II-XII intact bilaterally and no focal motor deficits Motor Exam: general weakness Psych thought process normal and cooperative Appearance: appropriate Assessment & Plan Assessment/Plan (1) Adult failure to thrive: (2) Orthostatic hypotension: (3) COVID: PLAN: Plan #Debility and weakness due to orthostatic hypotension * Patient still very weak and frail. Orthostatics remain positive today * She has been aggressively hydrated with IV fluids. COVID was also positive and may be contributing to weakness and lethargy. However she is asymptomatic from the respiratory standpoint. * Continue midodrine. Will add on fludrocortisone and FLETCHER stockings. * She did have an echo just about a week ago for stroke workup which showed EF of 65% with stage I diastolic dysfunction and negative bubble study. * PT OT on board. Fall precautions. * #COVID-19 infection * Patient tested positive for COVID but she is asymptomatic and is not short of breath. She is however very weak and this could be contributing. * Will monitor. #Hypokalemia: K is 2.4. Will replace aggressively, and check magnesium levels also. #UTI: * Urinalysis does show 3+ bacteria and urine nitrites were positive with elevated leukocyte esterase as well. * urine cultures growing E coli, sensitivities pending. * Patient currently on IV aztreonam due to her allergies. Await urine cultures. 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 Follow-up with pulmonology on outpatient basis. #History of dementia: Stable #Depression and anxiety: On escitalopram DVT prophylaxis: lovenox Charges/Coding Visit Charges Inpatient E&M: 68273 Subs Hosp L3
[2024-01-10 12:32] LABS: Magnesium 1.2 mg/dL (1.6-2.6)
[2024-01-10] MEDS: Potassium Chloride 10mEq/100mL 10 MEQ/100 ML IV.SOLN. 100 MEQ IV BOLUS ×4 (13:29→17:11)
[2024-01-10] MEDS: Fludrocortisone Acetate 0.1 MG Tablet PO (13:30)
[2024-01-10] MEDS: 0.9% Saline Lock 10 ML Syringe IV (13:42)
[2024-01-10] MEDS: Acetaminophen 325 MG Tablet 650 MG PO (14:51)
[2024-01-10 15:00] VITALS: BP 142/77; PULSE 58; RESP 18; TEMP 36.7; O2SAT 95
[2024-01-10 21:29] VITALS: BP 168/114; PULSE 87; RESP 18; TEMP 36.6; O2SAT 96
[2024-01-10] MEDS: Atorvastatin Calcium 20 MG Tablet PO (21:44)
[2024-01-10] MEDS: QUEtiapine 25 MG Tablet 50 MG PO (21:44)
[2024-01-10] MEDS: Magnesium Sulfate 4gm/100mL 4 GM/100 ML IV.SOLN. IV (23:47)
[2024-01-11 03:51] VITALS: BP 105/61; PULSE 66; RESP 18; TEMP 36.3; O2SAT 94
[2024-01-11] MEDS: AZTREONAM IV (05:33)
[2024-01-11] MEDS: NORMAL SALINE 0.9% IV (05:33)
[2024-01-11] MEDS: 0.9% Saline Lock 10 ML Syringe IV ×2 (05:33→14:05)
[2024-01-11 06:44] LABS: Absolute Lymphocyte Count 1.19 X10^3/uL (0.83-4.51); Basophil# 0.01 X10^3/uL; Basophil% 0.3 % (0-1); Eosinophil# 0.03 X10^3/uL; Eosinophils% 0.8 % (0-5); Hematocrit 34.7 % (37-47); Hemoglobin 11.4 g/dL (12.0-15.0); Lymphocyte # 1.19 X10^3/ul (0.83-4.51); Lymphocyte % 29.8 % (19-41); Mean Corp Hgb Conc 32.9 g/dL (32-36); Mean Corpuscular Hgb 28.6 pg (27.0-32.0); Mean Platelet Vol. 9.3 fl (6.2-12.0); Monocyte# 0.69 X10^3/uL; Monocyte% 17.3 % (0-10); NRBC Flagged by Analyzer 0 % (0-5); Neutrophil # 2.04 X10^3/uL (2.7-7.7); Platelet Count 227 K/mm3 (150-450); RBC Distribution Width CV 12.6 % (11.6-14.6); RBC Distribution Width SD 40.4 fl (35.1-43.9); Red Blood Count 3.99 M/mm3 (4.2-5.4)
[2024-01-11 07:10] LABS: Magnesium 3.1 mg/dL (1.6-2.6); Phosphorus 2.5 mg/dL (2.5-4.9)
[2024-01-11 07:58] LABS: Anion Gap 12 (5-15); BUN 10 mg/dL (7-18); BUN/Creat Ratio 22.2 RATIO (10-20); Calcium,Total 7.8 mg/dL (8.5-10.1); Chloride 108 mmol/L (98-107); Creatinine, Serum 0.45 mg/dL (0.55-1.02); EST Glomerular Filtration Rate 140 mL/min (>60); Est Glom Filt Rate - Afr Amer 169 mL/min (>60); Estimated Creatinine Clearance 37.77 ml/min; Glucose 76 mg/dL (74-106); Potassium 2.5 mmol/L (3.5-5.1); Sodium Level 140 mmol/L (136-145)
--- NOTE | 2024-01-11 11:26 | PN_ITS ---
Subjective Subjective Patient seen and examined. She still remains weak and tired. She denied any shortness of breath, cough, chest pain, palpitations, dizziness, nausea, vomiting or any other symptoms. Review of systems is otherwise negative. Objective Data Objective Data Vital Signs: Vital Signs Temp Pulse Resp BP Pulse Ox O2 Del Method 97.4 F L 66 18 105/61 94 Room Air 01/11/24 03:51 01/11/24 03:51 01/11/24 03:51 01/11/24 03:51 01/11/24 03:51 01/11/24 03:51 Oxygen Delivery Method Room Air Weight: 104 lb 7.986 oz Body Mass Index (BMI) 19.1 Intake & Output: Intake and Output for Last 24 Hours 01/09/24 01/10/24 01/11/24 23:59 23:59 23:59 Intake Total 3640.0 / 3640.0 1950 / 1950 200 / 200 Output Total 225 / 425 400 / 400 Balance 3415.0 / 3215.0 1550 / 1550 200 / 200 Lab / Micro Data 01/11/24 06:25 01/11/24 06:25 Labs: Laboratory Results - last 24 hr 01/10/24 08:36: Magnesium 1.2 L 01/11/24 06:25: WBC 4.0 L, RBC 3.99 L, Hgb 11.4 L, Hct 34.7 L, MCV 87.0, MCH 28.6, MCHC 32.9, RDW Std Deviation 40.4, RDW Coeff of Devyn 12.6, Plt Count 227, MPV 9.3, Immature Gran % (Auto) 0.800, Neut % (Auto) 51.0, Lymph % (Auto) 29.8, [place] % (Auto) 17.3 H, Eos % (Auto) 0.8, Baso % (Auto) 0.3, Absolute Neuts (auto) 2.0, Absolute Lymphs (auto) 1.19, Nucleated RBC % 0, Sodium 140, Potassium 2.5 L*, Chloride 108 H, Carbon Dioxide 20.0 L, Anion Gap 12, BUN 10, Creatinine 0.45 L, Estim Creat Clear Calc 37.77, Est GFR (MDRD) Af Amer 169, Est GFR (MDRD) Non- Af 140, BUN/Creatinine Ratio 22.2 H, Glucose 76, Calcium 7.8 L, Phosphorus 2.5, Magnesium 3.1 H Micro: Microbiology 01/09/24 05:00 Urine Catheter - Catheter Urine Culture - Final Presumptive E. coli 01/09/24 04:45 Stool Enteric Bacteriology - Final 01/09/24 05:00 Stool C. difficile GDH Antigen & Toxins - Final 01/09/24 05:00 Stool Clostridioides difficile (PCR) - Final 01/08/24 12:24 Mucosa - Nose SARS-CoV-2, Influenza & RSV (PCR) - Final SARS-CoV-2 (COVID 19 PCR) Rhythm Strip Rhythm Strip: Sinus bradycardia Rate: 57 Ectopy: None Physical Exam Const alert, oriented x3 and no apparent distress Constitutional Narrative: frail and weak General Appearance: cooperative and well developed HEENT normocephalic and head/scalp atraumatic Eyes PERRL and EOMs intact bilaterally Neck no lymphadenopathy and supple Lymph Lymphatic: no lymphadenopathy noted and no lymphedema noted Resp normal respiratory effort, normal air movement and clear to auscultation bilaterally Cardio regular rate, regular rhythm, S1 normal heart sound, S2 normal heart sound and no murmurs GI normal to inspection, nondistended, normoactive bowel sounds, soft to palpation, non-tender and non-distended Extremity normal capillary refill, no clubbing, cyanosis or edema and no calf tenderness General Extremity: no tenderness to palpation of joints or extremities Skin General Skin Exam: no breakdown Neuro CN's II-XII intact bilaterally and no focal motor deficits Motor Exam: general weakness Psych thought process normal and cooperative Appearance: appropriate Assessment & Plan Assessment/Plan (1) Adult failure to thrive: (2) Orthostatic hypotension: (3) COVID: PLAN: Plan #Debility and weakness due to orthostatic hypotension * Patient still very weak and frail. Orthostatics remain positive today * She has been aggressively hydrated with IV fluids. COVID was also positive and may be contributing to weakness and lethargy. However she is asymptomatic from the respiratory standpoint. * Continue midodrine. on fludrocortisone and FLETCHER stockings. * She did have an echo just about a week ago for stroke workup which showed EF of 65% with stage I diastolic dysfunction and negative bubble study. * PT OT on board. Fall precautions. * #COVID-19 infection * Patient tested positive for COVID but she is asymptomatic and is not short of breath. * She is however very weak and this could be a contributory factor. * Will monitor. #Hypokalemia: K is 2.5 today. Will replace aggressively. Mg is 3.1. #UTI: * Urinalysis does show 3+ bacteria and urine nitrites were positive with elevated leukocyte esterase as well. * urine cultures growing E coli * will switch to PO cefdinir x 5 days. 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 Follow-up with pulmonology on outpatient basis. #History of dementia: Stable #Depression and anxiety: On escitalopram DVT prophylaxis: lovenox Disposition; may benefit from placement. Charges/Coding Visit Charges Inpatient E&M: 33540 Subs Hosp L2
[2024-01-11 11:28] VITALS: BP 102/52; BP 110/62; BP 130/70; PULSE 60; PULSE 70; PULSE 75
[2024-01-11] MEDS: Clopidogrel Bisulfate 75 MG Tablet PO (11:37)
[2024-01-11] MEDS: Midodrine HCl 5 MG Tablet 10 MG PO ×3 (11:37→17:27)
[2024-01-11] MEDS: Escitalopram Oxalate 10 MG Tablet 5 MG PO (11:37)
[2024-01-11] MEDS: Fludrocortisone Acetate 0.1 MG Tablet PO (11:37)
[2024-01-11] MEDS: Enoxaparin 40 MG/0.4 ML Syringe SC (11:37)
[2024-01-11] MEDS: Aspirin E.C. 81 MG Tablet PO (11:37)
--- NOTE | 2024-01-11 12:15 | CM.UR ---
Daughter Joi at nurses station. RN VANDANA inquired if Joi has spoken to siblings regarding plans at discharge. Joi states she still needs to speak with brother regarding discharge plans and will attempt later today. CHANTELL ROSS thanked Joi and discussed following up tomorrow regarding discharge plans. Joi voiced understanding. CM will continue to follow this patient and plan for a safe discharge.
--- NOTE | 2024-01-11 13:12 | CHAPLAIN ---
Type of Pastoral Visit ___ Initial Visit ___ Follow-up Visit ___ On-call Visit ___ General Patient Visit ___ Spiritual Assessment ___ Family Conference ___ Bereavement ___ Rapid Response ___ Code Blue ___ Other (describe below) Pastoral Care Referral From ___ Patient ___ Family ___ Nurse ___ Physician ___ Navigating Officer ___ Shuttle Repairer ___ Other (describe below) Sacrament/Intervention ___ Active listening ___ Anointing ___ Tenriism ___ Bereavement ___ Communion ___ Yojana exploration ___ ___ Life review ___ Prayer ___ Reconciliation ___ Sacrament of Sick ___ Supportive presence ___ Wedding ___ Other (describe below) Pastoral Comments patient has been in isolation room since admitted and has dementia; visits have not been possible yet
[2024-01-11] MEDS: Potassium Chloride Oral Tablet 20 MEQ 60 MEQ PO (14:04)
[2024-01-11] MEDS: Ensure Clear 120 ML Liquid PO ×3 (14:05→21:38)
[2024-01-11] MEDS: Potassium Chloride 10mEq/100mL 10 MEQ/100 ML IV.SOLN. 100 MEQ IV BOLUS ×4 (14:05→18:45)
[2024-01-11] MEDS: 0.9% Normal Saline (500mL Bag) 500 ML 15 ML IV (14:08)
[2024-01-11 16:00] VITALS: BP 138/60; PULSE 59; RESP 18; TEMP 36.6; O2SAT 96
[2024-01-11 21:30] VITALS: BP 93/53; BP 93/83; PULSE 62; RESP 18; TEMP 35.8; O2SAT 94
[2024-01-11] MEDS: QUEtiapine 25 MG Tablet 50 MG PO (21:39)
[2024-01-11] MEDS: Atorvastatin Calcium 20 MG Tablet PO (21:39)
[2024-01-11] MEDS: Cefdinir 300 MG Capsule PO (21:39)
[2024-01-12 03:37] VITALS: BP 101/56; PULSE 64; RESP 18; TEMP 35.9; O2SAT 95
[2024-01-12 06:24] LABS: Absolute Lymphocyte Count 1.09 X10^3/uL (0.83-4.51); Absolute Neutrophil Count 1.9 X10^3/uL (2.0-7.7); Basophil# 0.01 X10^3/uL; Basophil% 0.3 % (0-1); Eosinophil# 0.02 X10^3/uL; Eosinophils% 0.5 % (0-5); Hematocrit 34.4 % (37-47); Lymphocyte # 1.09 X10^3/ul (0.83-4.51); Lymphocyte % 29.5 % (19-41); Mean Corpuscular Hgb 28.4 pg (27.0-32.0); Mean Corpuscular Volume 88.9 fL (81-99); Mean Platelet Vol. 9.2 fl (6.2-12.0); Monocyte# 0.69 X10^3/uL; Monocyte% 18.7 % (0-10); NRBC Flagged by Analyzer 0 % (0-5); Neutrophil # 1.87 X10^3/uL (2.7-7.7); Neutrophil % 50.7 % (47-70); Platelet Count 233 K/mm3 (150-450); RBC Distribution Width SD 42.2 fl (35.1-43.9); Red Blood Count 3.87 M/mm3 (4.2-5.4); White Blood Count 3.7 K/mm3 (4.4-11.0)
[2024-01-12 06:50] LABS: Anion Gap 9 (5-15); BUN 16 mg/dL (7-18); BUN/Creat Ratio 25.8 RATIO (10-20); Calcium,Total 8.4 mg/dL (8.5-10.1); Chloride 114 mmol/L (98-107); Creatinine, Serum 0.62 mg/dL (0.55-1.02); EST Glomerular Filtration Rate 97 mL/min (>60); Est Glom Filt Rate - Afr Amer 118 mL/min (>60); Estimated Creatinine Clearance 37.77 ml/min; Glucose 79 mg/dL (74-106); Sodium Level 142 mmol/L (136-145)
[2024-01-12 08:02] LABS: Magnesium 2.2 mg/dL (1.6-2.6)
[2024-01-12 09:17] VITALS: BP 110/60; PULSE 65; RESP 16; TEMP 36.4; O2SAT 94
[2024-01-12] MEDS: Enoxaparin 40 MG/0.4 ML Syringe SC (09:24)
[2024-01-12] MEDS: Clopidogrel Bisulfate 75 MG Tablet PO (09:25)
[2024-01-12] MEDS: Escitalopram Oxalate 10 MG Tablet 5 MG PO (09:25)
[2024-01-12] MEDS: Cefdinir 300 MG Capsule PO ×2 (09:25→22:24)
[2024-01-12] MEDS: Fludrocortisone Acetate 0.1 MG Tablet PO (09:25)
[2024-01-12] MEDS: Potassium Chloride Oral Tablet 20 MEQ 60 MEQ PO (09:25)
[2024-01-12] MEDS: Aspirin E.C. 81 MG Tablet PO (09:25)
[2024-01-12] MEDS: Midodrine HCl 5 MG Tablet 10 MG PO ×2 (09:25→12:38)
[2024-01-12] MEDS: Ensure Clear 120 ML Liquid PO ×2 (09:26→22:24)
[2024-01-12] MEDS: Potassium Chloride 10mEq/100mL 10 MEQ/100 ML IV.SOLN. 100 MEQ IV BOLUS ×2 (09:46→10:41)
[2024-01-12 11:43] VITALS: BP 108/67; BP 139/64; BP 92/74
[2024-01-12] MEDS: Potassium Chloride 10mEq/100mL 10 MEQ/100 ML IV.SOLN. 50 MEQ IV BOLUS ×2 (12:38→14:39)
--- NOTE | 2024-01-12 13:37 | PN_ITS ---
Subjective Subjective Patient seen and examined. Her daughter was by her bedside. Daughter said patient was given some sleep aids late last night and so patient now wants to sleep. Patient was quite agitated and did not want to be examined. She was upset with her daughter and kept on asking her daughter to leave her alone. Patient would not allow me to physically examine her I would not really answer any questions. Objective Data Objective Data Vital Signs: Vital Signs Temp Pulse Resp BP Pulse Ox O2 Del Method 97.6 F L 65 16 139/64 H 94 Room Air 01/12/24 09:17 01/12/24 09:17 01/12/24 09:17 01/12/24 11:43 01/12/24 09:17 01/12/24 10:00 Oxygen Delivery Method Room Air Weight: 104 lb 7.986 oz Body Mass Index (BMI) 19.1 Intake & Output: Intake and Output for Last 24 Hours 01/10/24 01/11/24 01/12/24 23:59 23:59 23:59 Intake Total 1950 / 1950 742.5 / 742.5 191.67 / 191.67 Output Total 400 / 400 Balance 1550 / 1550 742.5 / 742.5 191.67 / 191.67 Lab / Micro Data 01/12/24 06:07 01/12/24 06:07 Labs: Laboratory Results - last 24 hr 01/12/24 06:07: WBC 3.7 L, RBC 3.87 L, Hgb 11.0 L, Hct 34.4 L, MCV 88.9, MCH 28.4, MCHC 32.0, RDW Std Deviation 42.2, RDW Coeff of Devyn 13.0, Plt Count 233, MPV 9.2, Immature Gran % (Auto) 0.300, Neut % (Auto) 50.7, Lymph % (Auto) 29.5, [place] % (Auto) 18.7 H, Eos % (Auto) 0.5, Baso % (Auto) 0.3, Absolute Neuts (auto) 1.9 L, Absolute Lymphs (auto) 1.09, Nucleated RBC % 0, Sodium 142, Potassium 3.0 L, Chloride 114 H, Carbon Dioxide 20.0 L, Anion Gap 9, BUN 16, Creatinine 0.62, Estim Creat Clear Calc 37.77, Est GFR (MDRD) Af Amer 118, Est GFR (MDRD) Non-Af 97, BUN/Creatinine Ratio 25.8 H, Glucose 79, Calcium 8.4 L, Magnesium 2.2 Micro: Microbiology 01/09/24 05:00 Urine Catheter - Catheter Urine Culture - Final Presumptive E. coli 01/09/24 04:45 Stool Enteric Bacteriology - Final 01/09/24 05:00 Stool C. difficile GDH Antigen & Toxins - Final 01/09/24 05:00 Stool Clostridioides difficile (PCR) - Final 01/08/24 12:24 Mucosa - Nose SARS-CoV-2, Influenza & RSV (PCR) - Final SARS-CoV-2 (COVID 19 PCR) Rhythm Strip Rhythm Strip: Sinus bradycardia Rate: 57 Ectopy: None Physical Exam Const alert, oriented x3 and no apparent distress Constitutional Narrative: frail and weak General Appearance: cooperative and well developed HEENT normocephalic, head/scalp atraumatic and moist oral mucous membranes Eyes PERRL and EOMs intact bilaterally Neck no lymphadenopathy and supple Lymph Lymphatic: no lymphadenopathy noted and no lymphedema noted Resp normal respiratory effort, normal air movement and clear to auscultation bilaterally Cardio regular rate, regular rhythm, S1 normal heart sound, S2 normal heart sound and no murmurs GI normal to inspection, nondistended, normoactive bowel sounds, soft to palpation, non-tender and non-distended Extremity normal capillary refill, no clubbing, cyanosis or edema and no calf tenderness General Extremity: no tenderness to palpation of joints or extremities Skin General Skin Exam: no breakdown Neuro CN's II-XII intact bilaterally and no focal motor deficits Motor Exam: general weakness Psych Psych Narrative: agitated Assessment & Plan Assessment/Plan (1) Adult failure to thrive: (2) Orthostatic hypotension: (3) COVID: PLAN: Plan #Debility and weakness due to orthostatic hypotension * Patient still very weak and frail. Orthostatics still remain positive * She has been aggressively hydrated with IV fluids. COVID was also positive and may be contributing to weakness and lethargy. However she is asymptomatic from the respiratory standpoint. * Continue midodrine. on fludrocortisone and FLETCHER stockings. * She did have an echo just about a week ago for stroke workup which showed EF of 65% with stage I diastolic dysfunction and negative bubble study. * PT OT on board. Fall precautions. * #COVID-19 infection * Patient tested positive for COVID but she is asymptomatic and is not short of breath. * She is however very weak and this could be a contributory factor. * Will monitor. 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 * C diff screen on admission showed a positive C Diff antigen but negative C diff toxin. This likely indicates she is a carrier but does not have active infection * in Light of her having had a couple of episodes of diarrhea, will monitor and repeat test as needed to see if she is testing positive for C Diff toxin now. * #Hypokalemia: K is 3.0 today. Will replace aggressively. Mg is 2.2 #UTI: * Urinalysis does show 3+ bacteria and urine nitrites were positive with elevated leukocyte esterase as well. * urine cultures growing E coli * on PO cefdinir, to complete a 5 day course. 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 Follow-up with pulmonology on outpatient basis. #History of dementia: Stable #Depression and anxiety: On escitalopram DVT prophylaxis: lovenox Disposition; may benefit from placement. family however refusing placement and want to take her home. Anticipate dc over the next 1-2 days Charges/Coding Visit Charges Inpatient E&M: 51059 Subs Hosp L2
[2024-01-12 14:37] VITALS: BP 161/78; PULSE 55; RESP 18; TEMP 36.4; O2SAT 98
[2024-01-12 20:30] VITALS: BP 108/76; PULSE 66; RESP 17; TEMP 36.5; O2SAT 96
[2024-01-12] MEDS: Atorvastatin Calcium 20 MG Tablet PO (22:24)
[2024-01-12] MEDS: QUEtiapine 25 MG Tablet 50 MG PO (22:24)
[2024-01-13] VITALS (8 sets, daily range): BP systolic 124–133; BP diastolic 67–83; PULSE 64–79; RESP 16–17; TEMP 36.5–37.1; O2SAT 95–98
[2024-01-13 07:05] LABS: Absolute Lymphocyte Count 1.28 X10^3/uL (0.83-4.51); Absolute Neutrophil Count 2.9 X10^3/uL (2.0-7.7); Basophil# 0.02 X10^3/uL; Basophil% 0.4 % (0-1); Eosinophil# 0.05 X10^3/uL; Hematocrit 33.4 % (37-47); Hemoglobin 11.1 g/dL (12.0-15.0); Lymphocyte # 1.28 X10^3/ul (0.83-4.51); Lymphocyte % 25.2 % (19-41); Mean Corp Hgb Conc 33.2 g/dL (32-36); Mean Corpuscular Hgb 28.9 pg (27.0-32.0); Mean Platelet Vol. 9.3 fl (6.2-12.0); Monocyte# 0.83 X10^3/uL; Monocyte% 16.3 % (0-10); NRBC Flagged by Analyzer 0 % (0-5); Neutrophil # 2.89 X10^3/uL (2.7-7.7); Neutrophil % 56.9 % (47-70); Platelet Count 244 K/mm3 (150-450); RBC Distribution Width SD 40.9 fl (35.1-43.9); Red Blood Count 3.84 M/mm3 (4.2-5.4); White Blood Count 5.1 K/mm3 (4.4-11.0)
[2024-01-13 07:36] LABS: Anion Gap 8 (5-15); BUN 11 mg/dL (7-18); BUN/Creat Ratio 22.4 RATIO (10-20); Calcium,Total 8.7 mg/dL (8.5-10.1); Chloride 113 mmol/L (98-107); Creatinine, Serum 0.49 mg/dL (0.55-1.02); EST Glomerular Filtration Rate 127 mL/min (>60); Est Glom Filt Rate - Afr Amer 154 mL/min (>60); Estimated Creatinine Clearance 37.77 ml/min; Glucose 81 mg/dL (74-106); Potassium 3.3 mmol/L (3.5-5.1); Sodium Level 142 mmol/L (136-145)
[2024-01-13] MEDS: Enoxaparin 40 MG/0.4 ML Syringe SC (07:40)
[2024-01-13] MEDS: Aspirin E.C. 81 MG Tablet PO (07:41)
--- NOTE | 2024-01-13 11:21 | CASEMGMT ---
CHANTELL ROSS called daughter Joi to discuss needs at discharge. RN VANDANA inquired if they would like [facility] setup. Joi states that they would like [facility] and prefer [facility] and declined list. RN VANDANA updated daughter that patient could possible discharge today, Joi states, she has c-diff and covid, she can't go home. CHANTELL ROSS updated Joi that the hospitalist was reviewing her chart and anticipating discharge later today. Joi states, we'll see about that. Joi denied further needs or concerns at this time. CHANTELL ROSS updated PCU charge nurse of conversation. RN CM update hospitalist of conversation as well. RN VANDANA made referral to [facility], awaiting response. CM will continue to follow this patient and plan for a safe discharge.
[2024-01-13] MEDS: 0.9% Normal Saline (1000mL) 1,000 ML 75 ML IV (12:07)
[2024-01-13] MEDS: Potassium Chloride Oral Tablet 20 MEQ 40 MEQ PO (12:12)
--- NOTE | 2024-01-13 12:19 | NURSING ---
1100: Family called out asking to speak to nurse. This RN and CHANTELL Singleton entered room and updated daughters (Joi and Silvia) on POC. Attempted to educate on fall risk, covid, cdiff, uti, orthostatic vitals, and what medications have been ordered to help treat each condition. Both daughters expressed frustration with poc, stating she is not ready to be discharged and that hospital staff haven't done anything for her. Family also expressed frustration that a fpc was brought into discussion. Educated that patient is very impulsive and unsteady when out of bed, and the utilization of rehab was a therapy recommendation. Family upset that therapy has not been in to see patient, educated that therapy has been in to see patient at least once each day to walk in the room and get up to the chair. Therapy unable to ambulate pt in [place] due to infection status. Also educated family that patient is non-compliant at times with calling for help, taking medications, and working with therapy; this further complicates plan of care. Family requesting to speak to . 1120: Dr Brandt notified, new orders were placed. At 1200, Dr Brandt came to discuss POC with family, family not in room.
--- NOTE | 2024-01-13 12:45 | CASEMGMT ---
Daughter, Joi, approached this RN CM to discuss discharge planning with sister Silvia. RN CM sat with Silvia and Joi and discussed needs at discharge. Daughters were inquiring if patient could go to [facility] for additional therapy. RN VANDANA updated daughters that [facility] had no bed available at this time and they do not accept patient's insurance. CHANTELL ROSS informed daughter of [facility] and [facility]. Daughters declined list of SNF but state that [facility] is their next preference followed by [facility]. Daughters were agreeable to have referral sent to both facilities. Daughters had no further questions or concerns at this time. CHANTELL ROSS updated DC estate planning paralegal to send referrals to [facility] and [facility]. CM will continue to follow this patient and plan for a safe discharge.
--- NOTE | 2024-01-13 12:53 | PN_ITS ---
Subjective Subjective Patient seen and examined. She was resting in bed. She had no active complaints. Per her hurse, she had some more episodes of diarrhea today. Review of systems is otherwise negative. Objective Data Objective Data Vital Signs: Vital Signs Temp Pulse Resp BP Pulse Ox O2 Del Method 97.7 F L 67 17 133/83 H 95 Room Air 01/13/24 12:25 01/13/24 12:25 01/13/24 12:25 01/13/24 12:25 01/13/24 12:25 01/13/24 12:25 Oxygen Delivery Method Room Air Weight: 104 lb 7.986 oz Body Mass Index (BMI) 19.1 Intake & Output: Intake and Output for Last 24 Hours 01/11/24 01/12/24 01/13/24 23:59 23:59 23:59 Intake Total 742.5 / 742.5 591.67 / 711.67 220 / 220 Output Total 600 / 600 Balance 742.5 / 742.5 591.67 / 311.67 -380 / -380 Lab / Micro Data 01/13/24 07:00 01/13/24 07:00 Labs: Laboratory Results - last 24 hr 01/13/24 07:00: WBC 5.1, RBC 3.84 L, Hgb 11.1 L, Hct 33.4 L, MCV 87.0, MCH 28.9, MCHC 33.2, RDW Std Deviation 40.9, RDW Coeff of Devyn 13.0, Plt Count 244, MPV 9.3, Immature Gran % (Auto) 0.200, Neut % (Auto) 56.9, Lymph % (Auto) 25.2, [place] % (Auto) 16.3 H, Eos % (Auto) 1.0, Baso % (Auto) 0.4, Absolute Neuts (auto) 2.9, Absolute Lymphs (auto) 1.28, Nucleated RBC % 0, Sodium 142, Potassium 3.3 L, C hloride 113 H, Carbon Dioxide 21.0, Anion Gap 8, BUN 11, Creatinine 0.49 L, Estim Creat Clear Calc 37.77, Est GFR (MDRD) Af Amer 154, Est GFR (MDRD) Non-Af 127, BUN/Creatinine Ratio 22.4 H, Glucose 81, Calcium 8.7 Micro: Microbiology 01/09/24 05:00 Urine Catheter - Catheter Urine Culture - Final Presumptive E. coli 01/09/24 04:45 Stool Enteric Bacteriology - Final 01/09/24 05:00 Stool C. difficile GDH Antigen & Toxins - Final 01/09/24 05:00 Stool Clostridioides difficile (PCR) - Final 01/08/24 12:24 Mucosa - Nose SARS-CoV-2, Influenza & RSV (PCR) - Final SARS-CoV-2 (COVID 19 PCR) Rhythm Strip Rhythm Strip: Sinus bradycardia Rate: 57 Ectopy: None Physical Exam Const alert Constitutional Narrative: frail and weak, not very cooperative General Appearance: cooperative HEENT normocephalic, head/scalp atraumatic and moist oral mucous membranes Eyes PERRL and EOMs intact bilaterally Neck no lymphadenopathy and supple Lymph Lymphatic: no lymphadenopathy noted and no lymphedema noted Resp normal respiratory effort, normal air movement and clear to auscultation bilaterally Cardio regular rate, regular rhythm, S1 normal heart sound, S2 normal heart sound and no murmurs GI normal to inspection, nondistended, normoactive bowel sounds, soft to palpation, non-tender and non-distended Extremity normal capillary refill, no clubbing, cyanosis or edema and no calf tenderness General Extremity: no tenderness to palpation of joints or extremities Skin General Skin Exam: no breakdown Neuro CN's II-XII intact bilaterally and no focal motor deficits Motor Exam: general weakness Psych Psych Narrative: agitated when woken up Mood & Affect: flat affect Assessment & Plan Assessment/Plan (1) Adult failure to thrive: (2) Orthostatic hypotension: (3) COVID: PLAN: Plan #Debility and weakness due to orthostatic hypotension * Patient still very weak and frail. * She has been aggressively hydrated with IV fluids. COVID was also positive and may be contributing to weakness and lethargy. However she is asymptomatic from the respiratory standpoint. * Continue midodrine. on fludrocortisone and FLETCHER stockings. * She did have an echo just about a week ago for stroke workup which showed EF of 65% with stage I diastolic dysfunction and negative bubble study. * PT OT on board. Fall precautions. * check orthostatics again today * #COVID-19 infection * Patient tested positive for COVID but she is asymptomatic and is not short of breath. * She is however very weak and this could be a contributory factor. * Will monitor. #Hypokalemia: K is 3.3. Will replace and trend. 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 * C diff screen on admission showed a positive C Diff antigen but negative C diff toxin. This likely indicates she is a carrier but does not have active infection * Since diarrhea is persistent, will check C. difficile again to see if she is having the toxin now will commence treatment in the interim with vancomycin oral * #Hypokalemia: K is 3.0 today. Will replace aggressively. Mg is 2.2 #UTI: * Urinalysis does show 3+ bacteria and urine nitrites were positive with elevated leukocyte esterase as well. * urine cultures growing E coli * on PO cefdinir, to complete a 5 day course. 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 Follow-up with pulmonology on outpatient basis. #History of dementia with behavioral disturbance: On Seroquel. Per family request will cut down Seroquel from 50 to 25 mg nightly. #Depression and anxiety: On escitalopram DVT prophylaxis: lovenox Disposition; may benefit from placement. family however refusing placement and want to take her home. Charges/Coding Visit Charges Inpatient E&M: 60898 Subs Hosp L2
--- NOTE | 2024-01-13 12:59 | CASEMGMT ---
Addendum entered by Emma Frausto 01/16/24 09:13: [facility] accepted and will submit for precert. SW updated. Emma Frausto DC Planning Asst. Addendum entered by Emma Frausto 01/16/24 08:57: Requested clinical updates sent to [facility]. Emma Frausto DC Planning Asst. Addendum entered by Emma Frausto 01/13/24 14:41: [facility] declined. SW updated. Emma Frausto DC Planning Asst. Original Note: Discharge Planning Referral sent to [facility]. Emma Frausto, Discharge Planning Asst.
[2024-01-13] MEDS: Vancomycin 125 MG/5 ML Susp PO.SYRINGE PO ×2 (15:08→18:09)
[2024-01-13] MEDS: MELATONIN 3 MG TABLET PO (21:05)
[2024-01-13] MEDS: Atorvastatin Calcium 20 MG Tablet PO (21:05)
[2024-01-13] MEDS: Acetaminophen 325 MG Tablet 650 MG PO (21:05)
[2024-01-13] MEDS: Ensure Clear 120 ML Liquid PO (21:06)
[2024-01-13] MEDS: Cefdinir 300 MG Capsule PO (21:06)
[2024-01-14] VITALS (7 sets, daily range): BP systolic 123–177; BP diastolic 66–85; PULSE 53–85; RESP 14–18; TEMP 36.2–36.9; O2SAT 95–98
[2024-01-14] MEDS: 0.9% Normal Saline (1000mL) 1,000 ML 75 ML IV (00:22)
[2024-01-14] MEDS: Vancomycin 125 MG/5 ML Susp PO.SYRINGE PO ×4 (00:22→17:03)
[2024-01-14 06:48] LABS: Absolute Neutrophil Count 2.3 X10^3/uL (2.0-7.7); Basophil# 0.01 X10^3/uL; Basophil% 0.2 % (0-1); Eosinophil# 0.03 X10^3/uL; Eosinophils% 0.7 % (0-5); Hematocrit 31.4 % (37-47); Hemoglobin 10.5 g/dL (12.0-15.0); Lymphocyte % 27.6 % (19-41); Mean Corp Hgb Conc 33.4 g/dL (32-36); Mean Corpuscular Hgb 29.2 pg (27.0-32.0); Mean Corpuscular Volume 87.5 fL (81-99); Mean Platelet Vol. 10.6 fl (6.2-12.0); Monocyte# 0.74 X10^3/uL; Monocyte% 17.1 % (0-10); NRBC Flagged by Analyzer 0 % (0-5); Neutrophil # 2.34 X10^3/uL (2.7-7.7); Neutrophil % 53.9 % (47-70); Platelet Count 210 K/mm3 (150-450); RBC Distribution Width SD 41.7 fl (35.1-43.9); Red Blood Count 3.59 M/mm3 (4.2-5.4); White Blood Count 4.3 K/mm3 (4.4-11.0)
[2024-01-14 07:16] LABS: Anion Gap 8 (5-15); BUN 10 mg/dL (7-18); BUN/Creat Ratio 25.1 RATIO (10-20); Calcium,Total 8.4 mg/dL (8.5-10.1); Chloride 115 mmol/L (98-107); EST Glomerular Filtration Rate 161 mL/min (>60); Est Glom Filt Rate - Afr Amer 195 mL/min (>60); Estimated Creatinine Clearance 37.77 ml/min; Glucose 73 mg/dL (74-106); Potassium 3.5 mmol/L (3.5-5.1); Sodium Level 144 mmol/L (136-145)
[2024-01-14] MEDS: Escitalopram Oxalate 10 MG Tablet 5 MG PO (08:56)
[2024-01-14] MEDS: Midodrine HCl 5 MG Tablet 10 MG PO ×3 (08:56→17:03)
[2024-01-14] MEDS: Cefdinir 300 MG Capsule PO ×2 (08:56→20:47)
[2024-01-14] MEDS: Enoxaparin 40 MG/0.4 ML Syringe SC (08:56)
[2024-01-14] MEDS: Fludrocortisone Acetate 0.1 MG Tablet 0.2 MG PO (08:56)
[2024-01-14] MEDS: Aspirin E.C. 81 MG Tablet PO (08:57)
[2024-01-14] MEDS: Clopidogrel Bisulfate 75 MG Tablet PO (08:57)
--- NOTE | 2024-01-14 09:57 | PN_ITS ---
Subjective Subjective Patient seen and examined. She had no active complaints and was resting calmly. Review of systems is otherwise negative. She has remained hemodynamically stable. She is on room air. She has not had any more diarrhea overnight. Objective Data Objective Data Vital Signs: Vital Signs Temp Pulse Resp BP Pulse Ox O2 Del Method 98.4 F 73 16 123/85 H 97 Room Air 01/14/24 08:55 01/14/24 08:55 01/14/24 08:55 01/14/24 08:55 01/14/24 08:55 01/14/24 08:55 Oxygen Delivery Method Room Air Weight: 104 lb 7.986 oz Body Mass Index (BMI) 19.1 Intake & Output: Intake and Output for Last 24 Hours 01/12/24 01/13/24 01/14/24 23:59 23:59 23:59 Intake Total 591.67 / 711.67 220 / 220 1038.75 / 1038.75 Output Total 600 / 600 0 / 0 Balance 591.67 / 311.67 -380 / -380 1038.75 / 1038.75 Lab / Micro Data 01/14/24 06:20 01/14/24 06:20 Labs: Laboratory Results - last 24 hr 01/14/24 06:20: WBC 4.3 L, RBC 3.59 L, Hgb 10.5 L, Hct 31.4 L, MCV 87.5, MCH 29.2, MCHC 33.4, RDW Std Deviation 41.7, RDW Coeff of Devyn 13.0, Plt Count 210, MPV 10.6, Immature Gran % (Auto) 0.500, Neut % (Auto) 53.9, Lymph % (Auto) 27.6, [place] % (Auto) 17.1 H, Eos % (Auto) 0.7, Baso % (Auto) 0.2, Absolute Neuts (auto) 2.3, Absolute Lymphs (auto) 1.20, Nucleated RBC % 0, Sodium 144, Potassium 3.5, Chloride 115 H, Carbon Dioxide 21.0, Anion Gap 8, BUN 10, Creatinine 0.40 L, Estim Creat Clear Calc 37.77, Est GFR (MDRD) Af Amer 195, Est GFR (MDRD) Non-Af 161, BUN/Creatinine Ratio 25.1 H, Glucose 73 L, Calcium 8.4 L Micro: Microbiology 01/09/24 05:00 Urine Catheter - Catheter Urine Culture - Final Presumptive E. coli 01/09/24 04:45 Stool Enteric Bacteriology - Final 01/09/24 05:00 Stool C. difficile GDH Antigen & Toxins - Final 01/09/24 05:00 Stool Clostridioides difficile (PCR) - Final 01/08/24 12:24 Mucosa - Nose SARS-CoV-2, Influenza & RSV (PCR) - Final SARS-CoV-2 (COVID 19 PCR) Rhythm Strip Rhythm Strip: Sinus bradycardia Rate: 57 Ectopy: None Physical Exam Const alert and oriented x3 Constitutional Narrative: frail and weak General Appearance: cooperative HEENT normocephalic, head/scalp atraumatic and moist oral mucous membranes Eyes PERRL and EOMs intact bilaterally Neck no lymphadenopathy and supple Lymph Lymphatic: no lymphadenopathy noted and no lymphedema noted Resp normal respiratory effort, normal air movement and clear to auscultation bilaterally Cardio regular rate, regular rhythm, S1 normal heart sound, S2 normal heart sound and no murmurs GI normal to inspection, nondistended, normoactive bowel sounds, soft to palpation, non-tender and non-distended Extremity normal capillary refill, no clubbing, cyanosis or edema and no calf tenderness General Extremity: no tenderness to palpation of joints or extremities Skin General Skin Exam: no breakdown Neuro CN's II-XII intact bilaterally and no focal motor deficits Motor Exam: general weakness Psych thought process normal and cooperative Psych Narrative: flat affect Appearance: appropriate Mood & Affect: flat affect Assessment & Plan Assessment/Plan (1) Adult failure to thrive: (2) Orthostatic hypotension: (3) COVID: PLAN: Plan #Debility and weakness due to orthostatic hypotension * Patient still very weak and frail. * She has been aggressively hydrated with IV fluids. COVID was also positive and may be contributing to weakness and lethargy. However she is asymptomatic from the respiratory standpoint. * Continue midodrine. on fludrocortisone and FLETCHER stockings. * She did have an echo just about a week ago for stroke workup which showed EF of 65% with stage I diastolic dysfunction and negative bubble study. * PT OT on board. Fall precautions. * * #COVID-19 infection * Patient tested positive for COVID but she is asymptomatic and is not short of breath. * She is however very weak and this could be a contributory factor. * Will monitor. #Hypokalemia: K is 3.5. #Diarrhea * diarrhea is resolving. 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 * C diff screen on admission showed a positive C Diff antigen but negative C diff toxin. 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 * #Hypokalemia: K is 3.5. #UTI: * Urinalysis does show 3+ bacteria and urine nitrites were positive with elevated leukocyte esterase as well. * urine cultures growing E coli * on PO cefdinir, to complete a 5 day course; on day 3 today. 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 Follow-up with pulmonology on outpatient basis. #History of dementia with behavioral disturbance: On Seroquel 25mg qhs prn. #Depression and anxiety: On escitalopram DVT prophylaxis: lovenox Disposition; may benefit from placement.Family was initially refusing placement, but is now agreeable. I met with patient's 2 daughters and son as well as son-in-law today. They were concerned about her diarrhea that she was still having and says she had had surgery to remove a portion of her colon and so she did have underlying diarrhea. I explained to them that C. difficile testing had showed that she was positive for the C. difficile antigen but not the toxin. Had however I started her empirically on treatment for C. difficile due to her diarrhea. Repeat C. difficile test was pending and actually did come back negative for the toxin but still showed the positive antigen. I will however out of an abundance of caution treat her for 10 days with oral vancomycin. They are now agreeable to her going to a transitional care unit. DC they have had a bad experience with some SNF sent to her preferred initially that she would not go to a SNF but are now agreeable. Charges/Coding Visit Charges Inpatient E&M: 16352 Subs Hosp L2
[2024-01-14] MEDS: Ensure Clear 120 ML Liquid PO (20:43)
[2024-01-14] MEDS: MELATONIN 10 MG TABLET 5 MG PO (20:47)
[2024-01-14] MEDS: Atorvastatin Calcium 20 MG Tablet PO (20:47)
[2024-01-15] MEDS: Vancomycin 125 MG/5 ML Susp PO.SYRINGE PO ×5 (01:13→23:55)
[2024-01-15 01:45] VITALS: BP 122/74; PULSE 70; RESP 14; TEMP 36.6; O2SAT 94
[2024-01-15 06:25] LABS: Absolute Lymphocyte Count 1.51 X10^3/uL (0.83-4.51); Absolute Neutrophil Count 4.2 X10^3/uL (2.0-7.7); Basophil# 0.03 X10^3/uL; Basophil% 0.4 % (0-1); Eosinophil# 0.05 X10^3/uL; Eosinophils% 0.7 % (0-5); Hematocrit 32.5 % (37-47); Hemoglobin 10.8 g/dL (12.0-15.0); Lymphocyte # 1.51 X10^3/ul (0.83-4.51); Lymphocyte % 22.5 % (19-41); Mean Corp Hgb Conc 33.2 g/dL (32-36); Mean Corpuscular Hgb 28.7 pg (27.0-32.0); Mean Corpuscular Volume 86.4 fL (81-99); Mean Platelet Vol. 10.7 fl (6.2-12.0); Monocyte# 0.86 X10^3/uL; Monocyte% 12.8 % (0-10); NRBC Flagged by Analyzer 0 % (0-5); Neutrophil # 4.23 X10^3/uL (2.7-7.7); Neutrophil % 63.3 % (47-70); Platelet Count 241 K/mm3 (150-450); RBC Distribution Width CV 12.7 % (11.6-14.6); RBC Distribution Width SD 40.1 fl (35.1-43.9); Red Blood Count 3.76 M/mm3 (4.2-5.4); White Blood Count 6.7 K/mm3 (4.4-11.0)
[2024-01-15 06:52] LABS: Anion Gap 13 (5-15); BUN 9 mg/dL (7-18); BUN/Creat Ratio 20.2 RATIO (10-20); Calcium,Total 8.8 mg/dL (8.5-10.1); Chloride 107 mmol/L (98-107); Creatinine, Serum 0.44 mg/dL (0.55-1.02); EST Glomerular Filtration Rate 142 mL/min (>60); Est Glom Filt Rate - Afr Amer 172 mL/min (>60); Estimated Creatinine Clearance 37.77 ml/min; Glucose 82 mg/dL (74-106); Potassium 2.8 mmol/L (3.5-5.1); Sodium Level 142 mmol/L (136-145)
[2024-01-15 07:32] LABS: Magnesium 1.5 mg/dL (1.6-2.6)
[2024-01-15] MEDS: 0.9% Saline Lock 10 ML Syringe IV (08:30)
[2024-01-15] MEDS: Potassium Chloride 10mEq/100mL 10 MEQ/100 ML IV.SOLN. 100 MEQ IV BOLUS ×4 (08:30→12:11)
[2024-01-15 08:39] VITALS: BP 124/77; PULSE 71; RESP 18; TEMP 36.8; O2SAT 94
[2024-01-15] MEDS: Aspirin E.C. 81 MG Tablet PO (08:40)
[2024-01-15] MEDS: Escitalopram Oxalate 10 MG Tablet 5 MG PO (08:40)
[2024-01-15] MEDS: Potassium Chloride Oral Tablet 20 MEQ 60 MEQ PO (08:40)
[2024-01-15] MEDS: Enoxaparin 40 MG/0.4 ML Syringe SC (08:40)
[2024-01-15] MEDS: Midodrine HCl 5 MG Tablet 10 MG PO ×3 (08:40→17:10)
[2024-01-15] MEDS: Cefdinir 300 MG Capsule PO ×2 (08:40→20:18)
[2024-01-15] MEDS: Clopidogrel Bisulfate 75 MG Tablet PO (08:40)
[2024-01-15] MEDS: Fludrocortisone Acetate 0.1 MG Tablet 0.2 MG PO (08:41)
--- NOTE | 2024-01-15 08:49 | PN_ITS ---
Subjective Subjective Patient seen and examined. She had no active complaints. Her diarrhea is improving. Review of systems is otherwise negative. She has remained hemodynamically stable. Objective Data Objective Data Vital Signs: Vital Signs Temp Pulse Resp BP Pulse Ox O2 Del Method 98.2 F 71 18 124/77 H 94 Room Air 01/15/24 08:39 01/15/24 08:39 01/15/24 08:39 01/15/24 08:39 01/15/24 08:39 01/15/24 08:39 Oxygen Delivery Method Room Air Weight: 104 lb 7.986 oz Body Mass Index (BMI) 19.1 Intake & Output: Intake and Output for Last 24 Hours 01/13/24 01/14/24 01/15/24 23:59 23:59 22:59 Intake Total 220 / 220 2158.75 / 2158.75 60 / 60 Output Total 600 / 600 0 / 0 300 / 300 Balance -380 / -380 2158.75 / 2158.75 -240 / -240 Lab / Micro Data 01/15/24 06:06 01/15/24 06:06 Labs: Laboratory Results - last 24 hr 01/15/24 06:06: WBC 6.7, RBC 3.76 L, Hgb 10.8 L, Hct 32.5 L, MCV 86.4, MCH 28.7, MCHC 33.2, RDW Std Deviation 40.1, RDW Coeff of Devyn 12.7, Plt Count 241, MPV 10.7, Immature Gran % (Auto) 0.300, Neut % (Auto) 63.3, Lymph % (Auto) 22.5, M lupe % (Auto) 12.8 H, Eos % (Auto) 0.7, Baso % (Auto) 0.4, Absolute Neuts (auto) 4.2, Absolute Lymphs (auto) 1.51, Nucleated RBC % 0, Sodium 142, Potassium 2.8 L , Chloride 107, Carbon Dioxide 22.0, Anion Gap 13, BUN 9, Creatinine 0.44 L, Estim Creat Clear Calc 37.77, Est GFR (MDRD) Af Amer 172, Est GFR (MDRD) Non-Af 142, BUN/Creatinine Ratio 20.2 H, Glucose 82, Calcium 8.8, Magnesium 1.5 L Micro: Microbiology 01/14/24 10:00 Stool Enteric Bacteriology - Final 01/14/24 10:00 Stool C. difficile GDH Antigen & Toxins - Final 01/14/24 10:00 Stool Clostridioides difficile (PCR) - Final 01/09/24 05:00 Urine Catheter - Catheter Urine Culture - Final Presumptive E. coli 01/09/24 04:45 Stool Enteric Bacteriology - Final 01/09/24 05:00 Stool C. difficile GDH Antigen & Toxins - Final 01/09/24 05:00 Stool Clostridioides difficile (PCR) - Final 01/08/24 12:24 Mucosa - Nose SARS-CoV-2, Influenza & RSV (PCR) - Final SARS-CoV-2 (COVID 19 PCR) Rhythm Strip Rhythm Strip: Sinus bradycardia Rate: 57 Ectopy: None Physical Exam Const alert, oriented x3 and no apparent distress Constitutional Narrative: frail and weak General Appearance: cooperative HEENT normocephalic, head/scalp atraumatic and moist oral mucous membranes Eyes PERRL and EOMs intact bilaterally Neck no lymphadenopathy and supple Lymph Lymphatic: no lymphadenopathy noted and no lymphedema noted Resp normal respiratory effort, normal air movement and clear to auscultation bilaterally Cardio regular rate, regular rhythm, S1 normal heart sound, S2 normal heart sound and no murmurs GI normal to inspection, nondistended, normoactive bowel sounds, soft to palpation, non-tender and non-distended Extremity normal capillary refill, no clubbing, cyanosis or edema and no calf tenderness General Extremity: no tenderness to palpation of joints or extremities Skin General Skin Exam: no breakdown Neuro CN's II-XII intact bilaterally and no focal motor deficits Motor Exam: general weakness Psych thought process normal and cooperative Psych Narrative: flat affect Appearance: appropriate Mood & Affect: flat affect Assessment & Plan Assessment/Plan (1) Adult failure to thrive: (2) Orthostatic hypotension: (3) COVID: PLAN: Plan #Debility and weakness due to orthostatic hypotension * She has been aggressively hydrated with IV fluids. COVID was also positive and may be contributing to weakness and lethargy. However she is asymptomatic from the respiratory standpoint. * Continue midodrine. on fludrocortisone and FLETCHER stockings. * She did have an echo just about a week ago for stroke workup which showed EF of 65% with stage I diastolic dysfunction and negative bubble study. * PT OT on board. Fall precautions. * * #COVID-19 infection * Patient tested positive for COVID but she is asymptomatic and is not short of breath. * asymptomatic from covid standpoint * #Hypokalemia and hypomagnesemia: potassium today is 2.8, with magnesium of 1.5. Will replace aggressively and trend. #Diarrhea * diarrhea is resolving. 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 * C diff screen on admission showed a positive C Diff antigen but negative C diff toxin. 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 Son tells me that she has a history of a portion of her bowel being taken out and she is on loperamide at home for diarrhea. However this diarrhea she is having is out of the norm for her. * Out of an abundance of caution we will treat with oral vancomycin for 10 days. Continue loperamide. Enteric panel also negative. * #UTI: * Urinalysis does show 3+ bacteria and urine nitrites were positive with elevated leukocyte esterase as well. * urine cultures growing E coli * on PO cefdinir, to complete a 5 day course; on day 4 today. 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 Follow-up with pulmonology on outpatient basis. #History of dementia with behavioral disturbance: On Seroquel 25mg qhs prn. #Depression and anxiety: On escitalopram DVT prophylaxis: lovenox Disposition; awaiting placement Charges/Coding Visit Charges Inpatient E&M: 31482 Subs Hosp L2
[2024-01-15] MEDS: Magnesium Sulfate 4gm/100mL 4 GM/100 ML IV.SOLN. IV (09:45)
[2024-01-15] MEDS: Loperamide 2 MG Capsule PO ×3 (09:45→20:18)
[2024-01-15 14:40] VITALS: BP 139/74; PULSE 67; RESP 18; TEMP 36.8; O2SAT 96
[2024-01-15 20:15] VITALS: BP 157/94; PULSE 56; RESP 18; TEMP 37.1; O2SAT 95
[2024-01-15] MEDS: Atorvastatin Calcium 20 MG Tablet PO (20:17)
[2024-01-15] MEDS: Ensure Clear 120 ML Liquid PO (20:17)
[2024-01-15] MEDS: MELATONIN 10 MG TABLET 5 MG PO (20:18)
[2024-01-16 02:15] VITALS: BP 123/67; PULSE 63; RESP 18; TEMP 36.8; O2SAT 94
[2024-01-16] MEDS: Vancomycin 125 MG/5 ML Susp PO.SYRINGE PO ×3 (05:03→17:24)
[2024-01-16 06:08] LABS: Absolute Lymphocyte Count 1.37 X10^3/uL (0.83-4.51); Absolute Neutrophil Count 3.3 X10^3/uL (2.0-7.7); Basophil# 0.03 X10^3/uL; Basophil% 0.5 % (0-1); Eosinophils% 1.8 % (0-5); Hematocrit 32.2 % (37-47); Hemoglobin 10.6 g/dL (12.0-15.0); Lymphocyte # 1.37 X10^3/ul (0.83-4.51); Lymphocyte % 24.2 % (19-41); Mean Corp Hgb Conc 32.9 g/dL (32-36); Mean Corpuscular Hgb 28.8 pg (27.0-32.0); Mean Corpuscular Volume 87.5 fL (81-99); Mean Platelet Vol. 10.5 fl (6.2-12.0); Monocyte# 0.89 X10^3/uL; Monocyte% 15.8 % (0-10); NRBC Flagged by Analyzer 0 % (0-5); Neutrophil # 3.25 X10^3/uL (2.7-7.7); Neutrophil % 57.5 % (47-70); Platelet Count 226 K/mm3 (150-450); RBC Distribution Width CV 12.8 % (11.6-14.6); RBC Distribution Width SD 40.5 fl (35.1-43.9); Red Blood Count 3.68 M/mm3 (4.2-5.4); White Blood Count 5.7 K/mm3 (4.4-11.0)
[2024-01-16 06:43] LABS: Anion Gap 7 (5-15); BUN 7 mg/dL (7-18); BUN/Creat Ratio 17.4 RATIO (10-20); Calcium,Total 8.4 mg/dL (8.5-10.1); Chloride 110 mmol/L (98-107); EST Glomerular Filtration Rate 159 mL/min (>60); Est Glom Filt Rate - Afr Amer 193 mL/min (>60); Estimated Creatinine Clearance 37.77 ml/min; Glucose 85 mg/dL (74-106); Potassium 3.7 mmol/L (3.5-5.1); Sodium Level 140 mmol/L (136-145)
[2024-01-16 07:58] VITALS: BP 135/73; PULSE 70; RESP 16; TEMP 36.4; O2SAT 92
[2024-01-16] MEDS: Clopidogrel Bisulfate 75 MG Tablet PO (08:01)
[2024-01-16] MEDS: Escitalopram Oxalate 10 MG Tablet 5 MG PO (08:01)
[2024-01-16] MEDS: Midodrine HCl 5 MG Tablet 10 MG PO ×3 (08:01→17:24)
[2024-01-16] MEDS: Aspirin E.C. 81 MG Tablet PO (08:01)
[2024-01-16] MEDS: Cefdinir 300 MG Capsule PO (08:02)
[2024-01-16] MEDS: Enoxaparin 40 MG/0.4 ML Syringe SC (08:02)
[2024-01-16 08:28] VITALS: BP 110/71; BP 135/73; BP 90/72
[2024-01-16] MEDS: Fludrocortisone Acetate 0.1 MG Tablet 0.2 MG PO (08:31)
--- NOTE | 2024-01-16 09:28 | CASEMGMT ---
[facility] accepted patient and will start pre-cert. IVONNE spoke with patient's daughter Silvia in the hallway. IVONNE let Silvia know that [facility] can take patient pending insurance approval. IVONNE asked Silvia if they were still wanting patient to go somewhere. Silvia said they want to see how patient does with therapy and if she is still contagious. They want to talk with the doctor first. Physician was on the unit and was going to go talk with family. After physician spoke with patient's daughters physician notified IVONNE that family wants to take patient home if she does okay with therapy. They will decide tomorrow. IVONNE will not cancel the pre-cert with [facility] yet. Radha Chacon SOFTWARE ARCHITECT ALISSA
--- NOTE | 2024-01-16 09:57 | CASEMGMT ---
Patient has already been approved by insurance for [facility]. Await family's decision on plan. Radha Chacon MASK LAYOUT DESIGNER ALISSA
--- NOTE | 2024-01-16 10:04 | PN_ITS ---
Subjective Subjective Patient seen and examined. She had no complaints. Review of systems otherwise negative. Orthostatics still positive. She has otherwise remained hemodynamically stable. Objective Data Objective Data Vital Signs: Vital Signs Temp Pulse Resp BP Pulse Ox O2 Del Method 97.6 F L 70 16 135/73 H 92 Room Air 01/16/24 07:58 01/16/24 07:58 01/16/24 07:58 01/16/24 08:28 01/16/24 07:58 01/16/24 08:39 Oxygen Delivery Method Room Air Weight: 104 lb 7.986 oz Body Mass Index (BMI) 19.1 Intake & Output: Intake and Output for Last 24 Hours 01/14/24 01/15/24 01/16/24 23:59 22:59 23:59 Intake Total 2158.75 / 2158.75 560 / 560 Output Total 0 / 0 300 / 300 Balance 2158.75 / 2158.75 260 / 260 Lab / Micro Data 01/16/24 05:56 01/16/24 05:56 Labs: Laboratory Results - last 24 hr 01/16/24 05:56: WBC 5.7, RBC 3.68 L, Hgb 10.6 L, Hct 32.2 L, MCV 87.5, MCH 28.8, MCHC 32.9, RDW Std Deviation 40.5, RDW Coeff of Devyn 12.8, Plt Count 226, MPV 10.5, Immature Gran % (Auto) 0.200, Neut % (Auto) 57.5, Lymph % (Auto) 24.2, M lupe % (Auto) 15.8 H, Eos % (Auto) 1.8, Baso % (Auto) 0.5, Absolute Neuts (auto) 3.3, Absolute Lymphs (auto) 1.37, Nucleated RBC % 0, Sodium 140, Potassium 3.7, Chloride 110 H, Carbon Dioxide 24.0, Anion Gap 7, BUN 7, Creatinine 0.40 L, Estim Creat Clear Calc 37.77, Est GFR (MDRD) Af Amer 193, Est GFR (MDRD) Non-Af 159, BUN/Creatinine Ratio 17.4, Glucose 85, Calcium 8.4 L Micro: Microbiology 01/14/24 10:00 Stool Enteric Bacteriology - Final 01/14/24 10:00 Stool C. difficile GDH Antigen & Toxins - Final 01/14/24 10:00 Stool Clostridioides difficile (PCR) - Final 01/09/24 05:00 Urine Catheter - Catheter Urine Culture - Final Presumptive E. coli 01/09/24 04:45 Stool Enteric Bacteriology - Final 01/09/24 05:00 Stool C. difficile GDH Antigen & Toxins - Final 01/09/24 05:00 Stool Clostridioides difficile (PCR) - Final 01/08/24 12:24 Mucosa - Nose SARS-CoV-2, Influenza & RSV (PCR) - Final SARS-CoV-2 (COVID 19 PCR) Rhythm Strip Rhythm Strip: Sinus bradycardia Rate: 57 Ectopy: None Physical Exam Const alert, oriented x3 and no apparent distress Constitutional Narrative: frail and weak General Appearance: cooperative HEENT normocephalic, head/scalp atraumatic and moist oral mucous membranes Eyes PERRL and EOMs intact bilaterally Neck no lymphadenopathy and supple Lymph Lymphatic: no lymphadenopathy noted and no lymphedema noted Resp normal respiratory effort, normal air movement and clear to auscultation bilaterally Cardio regular rate, regular rhythm, S1 normal heart sound, S2 normal heart sound and no murmurs GI normal to inspection, nondistended, normoactive bowel sounds, soft to palpation, non-tender and non-distended Extremity normal capillary refill, no clubbing, cyanosis or edema and no calf tenderness General Extremity: no tenderness to palpation of joints or extremities Skin General Skin Exam: no breakdown Neuro CN's II-XII intact bilaterally and no focal motor deficits Motor Exam: general weakness Psych thought process normal and cooperative Psych Narrative: flat affect Appearance: appropriate Mood & Affect: flat affect Assessment & Plan Assessment/Plan (1) Adult failure to thrive: (2) Orthostatic hypotension: (3) COVID: PLAN: Plan #Debility and weakness due to orthostatic hypotension * She has been aggressively hydrated with IV fluids. COVID was also positive and may be contributing to weakness and lethargy. However she is asymptomatic from the respiratory standpoint. * Continue midodrine. on fludrocortisone and FLETCHER stockings. * She did have an echo just about a week prior to this admission for stroke workup which showed EF of 65% with stage I diastolic dysfunction and negative bubble study. * PT OT on board. Fall precautions. * * #COVID-19 infection * Patient tested positive for COVID but she is asymptomatic and is not short of breath. * asymptomatic from covid standpoint * to take out of isolation tomorrow as it will be day 10 since her diagnosis #Hypokalemia and hypomagnesemia: resolved. #Diarrhea * diarrhea is improving. 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 * C diff screen on admission showed a positive C Diff antigen but negative C diff toxin. 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 Son tells me that she has a history of a portion of her bowel being taken out and she is on loperamide at home for diarrhea. However this diarrhea she is having is out of the norm for her. * Out of an abundance of caution we will treat with oral vancomycin for 10 days. Continue loperamide. Enteric panel also negative. * #UTI: * Urinalysis does show 3+ bacteria and urine nitrites were positive with elevated leukocyte esterase as well. 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 Follow-up with pulmonology on outpatient basis. #History of dementia with behavioral disturbance: On Seroquel 25mg qhs prn. #Depression and anxiety: On escitalopram DVT prophylaxis: lovenox Disposition; awaiting placement. Family now safely thinking of taking her home but want to wait till tomorrow to see how she does with therapy today. Charges/Coding Visit Charges Inpatient E&M: 36253 Subs Hosp L2
--- NOTE | 2024-01-16 10:11 | CASEMGMT ---
Discharge Planning [facility] obtained auth to admit. Emma Frausto DC Planning Asst.
[2024-01-16 12:01] VITALS: BP 112/63; PULSE 65; RESP 16; TEMP 36.4; O2SAT 92
--- NOTE | 2024-01-16 15:44 | CT_ITS ---
STUDY: CT BRAIN WITHOUT CONTRAST REASON FOR EXAM: Female, 88 years old. encephalopathy RADIATION DOSAGE (If Supplied By Facility): CTDIvol = ( 44.99 ) mGy, DLP = ( 779.24 ) mGycm TECHNIQUE: Transaxial CT imaging of the brain was performed without administration of intravenous contrast material. Individualized dose optimization techniques were used for this CT. COMPARISON: December 2023 FINDINGS: Normal soft tissue structures. Normal calvarium. Calcific plaquing of the cavernous carotids Normal size ventricles and extra-axial spaces for the patient''s age. Normal white matter tracts of the cerebral hemispheres. Normal basal ganglia and thalami. Normal brainstem. Normal cerebellum. There is no intracranial hemorrhage. There are no findings of an acute ischemic infarction. Moderate right maxillary bilateral ethmoid and left sphenoid sinus disease. Postsurgical changes of the orbits CT/Brain/Head without Contrast IMPRESSION: Moderate atrophy and periventricular white matter ischemic change. No evidence for acute intracranial bleed. MRI would be useful for further evaluation if clinically warranted Electronically Signed: Tani Drummond MD at 17:16 EST ,
--- NOTE | 2024-01-16 16:51 | NURSING ---
Updated patients daughter Joi on POC and updates. Joi expressed understanding with no questions.
--- NOTE | 2024-01-16 16:51 | NURSING ---
Updated patients daughter Crystal on updates/poc. No further questions at this time.
[2024-01-16 17:22] VITALS: BP 105/64; PULSE 92; RESP 18; TEMP 36.4; O2SAT 93
[2024-01-16 21:13] VITALS: BP 166/95; PULSE 68; RESP 16; TEMP 37.4; O2SAT 93
[2024-01-16] MEDS: Atorvastatin Calcium 20 MG Tablet PO (21:28)
[2024-01-16] MEDS: Ensure Clear 120 ML Liquid PO (21:28)
[2024-01-17] MEDS: Vancomycin 125 MG/5 ML Susp PO.SYRINGE PO ×3 (00:08→12:18)
[2024-01-17 04:00] VITALS: BP 119/66; PULSE 82; RESP 18; TEMP 36.9; O2SAT 92
[2024-01-17 04:05] VITALS: BP 119/66; PULSE 76; RESP 18; TEMP 36.9; O2SAT 92
[2024-01-17] MEDS: 0.9% Saline Lock 10 ML Syringe IV (05:39)
[2024-01-17 07:23] LABS: Absolute Lymphocyte Count 1.34 X10^3/uL (0.83-4.51); Absolute Neutrophil Count 4.5 X10^3/uL (2.0-7.7); Basophil# 0.03 X10^3/uL; Basophil% 0.4 % (0-1); Eosinophil# 0.08 X10^3/uL; Eosinophils% 1.1 % (0-5); Hematocrit 33.2 % (37-47); Hemoglobin 10.7 g/dL (12.0-15.0); Lymphocyte # 1.34 X10^3/ul (0.83-4.51); Lymphocyte % 18.5 % (19-41); Mean Corp Hgb Conc 32.2 g/dL (32-36); Mean Corpuscular Hgb 28.3 pg (27.0-32.0); Mean Corpuscular Volume 87.8 fL (81-99); Mean Platelet Vol. 10.2 fl (6.2-12.0); Monocyte# 1.24 X10^3/uL; Monocyte% 17.2 % (0-10); NRBC Flagged by Analyzer 0 % (0-5); Neutrophil # 4.53 X10^3/uL (2.7-7.7); Neutrophil % 62.7 % (47-70); Platelet Count 279 K/mm3 (150-450); RBC Distribution Width CV 12.5 % (11.6-14.6); RBC Distribution Width SD 40.8 fl (35.1-43.9); Red Blood Count 3.78 M/mm3 (4.2-5.4); White Blood Count 7.2 K/mm3 (4.4-11.0)
[2024-01-17 08:01] LABS: Anion Gap 12 (5-15); BUN 9 mg/dL (7-18); BUN/Creat Ratio 19.3 RATIO (10-20); Calcium,Total 8.9 mg/dL (8.5-10.1); Chloride 105 mmol/L (98-107); Creatinine, Serum 0.47 mg/dL (0.55-1.02); EST Glomerular Filtration Rate 135 mL/min (>60); Est Glom Filt Rate - Afr Amer 163 mL/min (>60); Estimated Creatinine Clearance 37.77 ml/min; Glucose 88 mg/dL (74-106); Potassium 3.3 mmol/L (3.5-5.1); Sodium Level 141 mmol/L (136-145)
[2024-01-17 08:22] VITALS: BP 123/76; PULSE 76; RESP 16; TEMP 36.4; O2SAT 93
[2024-01-17] MEDS: Clopidogrel Bisulfate 75 MG Tablet PO (09:49)
[2024-01-17] MEDS: Fludrocortisone Acetate 0.1 MG Tablet PO (09:49)
[2024-01-17] MEDS: Midodrine HCl 5 MG Tablet 10 MG PO (09:49)
[2024-01-17] MEDS: Aspirin E.C. 81 MG Tablet PO (09:50)
[2024-01-17] MEDS: Escitalopram Oxalate 10 MG Tablet 5 MG PO (09:50)
[2024-01-17] MEDS: Enoxaparin 40 MG/0.4 ML Syringe SC (09:57)
--- NOTE | 2024-01-17 10:01 | CASEMGMT ---
Family has decided to allow patient to go to [facility]. Physician was notified. SW notified Emma who notified facility. Plan: d/c to [facility] under skilled level of care. Radha MAXWELL
--- NOTE | 2024-01-17 10:02 | TREXTCAR_ITS ---
Diet Diet Order/Speech Therapy: 01/09/24 15:18 Diet: Regular - General Type of Dietary Supplement:: Ensure Plus High Protein Diet Comments: 4 oz vanilla EPHP w/ meals tid Routine Orders/Code Status Enema Type: Fleetz Enema Frequency: Daily PRN Suppository Type: Dulcolax 10mg Suppository Frequency: Daily PRN O2 Frequency: PRN Keep PO Greater than or Equal to (%): 90 Therapies Weight Bearing: Weight bearing as tolerated Physical Therapy: Eval and Treat Occupational Therapy: Eval and Treat Problem/Diagnosis (1) Adult failure to thrive: Status: Acute Code(s): R62.7 - Adult failure to thrive (2) Orthostatic hypotension: Status: Acute Code(s): I95.1 - Orthostatic hypotension (3) COVID: Status: Acute Code(s): U07.1 - COVID-19 Plan #Debility and weakness due to orthostatic hypotension * She has been aggressively hydrated with IV fluids. COVID was also positive and may be contributing to weakness and lethargy. However she is asymptomatic from the respiratory standpoint. * Continue midodrine. on fludrocortisone and FLETCHER stockings. * She did have an echo just about a week prior to this admission for stroke workup which showed EF of 65% with stage I diastolic dysfunction and negative bubble study. * PT OT on board. Fall precautions. * * #COVID-19 infection * Patient tested positive for COVID but she is asymptomatic and is not short of breath. * asymptomatic from covid standpoint * to take out of isolation tomorrow as it will be day 10 since her diagnosis #Hypokalemia and hypomagnesemia: resolved. #Diarrhea * diarrhea is improving. 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 * C diff screen on admission showed a positive C Diff antigen but negative C diff toxin. 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 Son tells me that she has a history of a portion of her bowel being taken out and she is on loperamide at home for diarrhea. However this diarrhea she is having is out of the norm for her. * Out of an abundance of caution we will treat with oral vancomycin for 10 days. Continue loperamide. Enteric panel also negative. * #UTI: * Urinalysis does show 3+ bacteria and urine nitrites were positive with elevated leukocyte esterase as well. 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 Follow-up with pulmonology on outpatient basis. #History of dementia with behavioral disturbance: On Seroquel 25mg qhs prn. #Depression and anxiety: On escitalopram DVT prophylaxis: lovenox Disposition; awaiting placement. Family now safely thinking of taking her home but want to wait till tomorrow to see how she does with therapy today. Allergies/Procedures Done in Hospital Allergies adhesive tape Allergy (Mild, Verified 01/01/24 18:20) unknown alendronate sodium (From Fosamax) Allergy (Mild, Verified 01/01/24 18:20) Rash bisacodyl (From Fleet Prep Kit #1) Allergy (Verified 01/01/24 18:20) Other PT CANT REMEMBER REACTION ciprofloxacin (From Cipro) Allergy (Verified 01/01/24 18:20) Rash ciprofloxacin HCl (From Cipro) Allergy (Verified 01/01/24 18:20) Rash estradiol Allergy (Verified 01/01/24 18:20) Other PT CANT REMEMBER REACTION estrogens, conjugated (From Premarin) Allergy (Verified 01/01/24 18:20) Other PT CANT REMEMBER REACTION hydrocodone (From [place]) Allergy (Verified 01/01/24 18:20) Itching hydroxyzine Allergy (Verified 01/01/24 18:20) Other PT CANT REMEMBER REACTION levonorgestrel (From Climara Pro) Allergy (Verified 01/01/24 18:20) Other NSAIDS (Non-Steroidal Anti-Inflamma Allergy (Verified 01/01/24 18:20) Other PT CANT REMEMBER REACTION Penicillins Allergy (Verified 01/01/24 18:20) Swelling procaine HCl (From Novocain) Allergy (Verified 01/01/24 18:20) Other PT CANT REMEMBER REACTION sodium phosphate,monobasic-dibasic (From Fleet Prep Kit #1) Allergy (Verified 01/01/24 18:20) Other PT CANT REMEMBER REACTION Sulfa (Sulfonamide Antibiotics) Allergy (Verified 01/01/24 18:20) Swelling Type of Care/Length of Stay Estimated LOS: Convalescent Care Less Than 30 days Type of Care Needed: Skilled Rehab Potential: Fair Prognosis: Fair Additional Orders/Day of Discharge Day of Discharge: 01/17/24 Dietary and Speech Recommendations Dietitian Recommendations/Changes: Continue to liberal regular diet and 120ml ensure clear 4x daily with medpass and 120ml vanilla ensure plus high protein TID with meals. Consider appetite simulant. Pt may benefit from enteral nutrition if she is unable to consume sufficient nutrition, via PO. Will adjust ONS, as needed. Will monitor weight, as available. Reviewed and approved by Sangita Altman, RD, LD. Discharge Plan Admission Admit Date/Time: 01/08/24 15:23 Primary Reason for Your Visit: debility, weakness, orthostatic hypotension Attending Provider: Shani Brandt Primary Care Provider: Jennifer Klein Consulting Providers: Kelly Walker Instructions Patient Instructions: Orthostatic Hypotension, ED FALL-from [id number]-[id number] Discharge Orders/Prescriptions Prescriptions: New fludrocortisone 0.1 mg Tablet 0.1 mg PO BREAKFAST Qty: 30 1RF vancomycin [Firvanq] 25 mg/mL Recon Soln 125 mg PO Q6 5 Days Qty: 100 0RF Continued aspirin 81 MG tablet,delayed release (DR/EC) 81 mg PO DAILY@0800 melatonin 3 mg tablet 3 mg PO QHS loperamide 2 mg capsule 4 mg PO DAILY PRN (Reason: diarrhea) loperamide 2 mg capsule 2 mg PO DAILY PRN (Reason: diarrhea) Rx Instructions: pt takes 4mg daily. If pt has diarrhea within 30 minutes of taking 4mg pt takes 2mg x1 dose. midodrine 5 mg Tablet 10 mg PO TIDCM Qty: 90 0RF acetaminophen 500 mg Tablet 1,000 mg PO TID PRN (Reason: Pain 1-10 Or Fever) Qty: 0 0RF Ensure Plus High Protein 0.08 gram-1.5 kcal/mL Liquid 120 ml PO 4X/DAY Qty: 60 0RF atorvastatin 20 mg tablet 20 mg PO DAILY Qty: 90 1RF clopidogrel [Plavix] 75 mg tablet 75 mg PO DAILY Qty: 90 3RF escitalopram oxalate [Lexapro] 5 mg tablet 5 mg PO DAILY Qty: 90 3RF Referrals / Follow Up: Jennifer Klein MD [Primary Care Provider] - Within 1 Week Disposition Disposition (needs filled in before D/C Order can be placed): Shelter Facility
--- NOTE | 2024-01-17 10:03 | DS.PCM_ITS ---
Providers Date of Admission: 01/08/24 Date of Discharge: 01/17/24 Primary Care Physician: Dr. Jennifer Klein MD Reason For Visit: PRESYNCOPE WEAKNESS ORTHOSTATIC HYPOTENSION Diagnosis Discharge Diagnosis (1) Adult failure to thrive: Status: Acute Code(s): R62.7 - Adult failure to thrive (2) Orthostatic hypotension: Status: Acute Code(s): I95.1 - Orthostatic hypotension (3) COVID: Status: Acute Code(s): U07.1 - COVID-19 Plan #Debility and weakness due to orthostatic hypotension * She has been aggressively hydrated with IV fluids. COVID was also positive and may be contributing to weakness and lethargy. However she is asymptomatic from the respiratory standpoint. * Continue midodrine. on fludrocortisone and FLETCHER stockings. * She did have an echo just about a week prior to this admission for stroke workup which showed EF of 65% with stage I diastolic dysfunction and negative bubble study. * PT OT on board. Fall precautions. * * #COVID-19 infection * Patient tested positive for COVID but she is asymptomatic and is not short of breath. * asymptomatic from covid standpoint * to take out of isolation tomorrow as it will be day 10 since her diagnosis #Hypokalemia and hypomagnesemia: resolved. #Diarrhea * diarrhea is improving. 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 * C diff screen on admission showed a positive C Diff antigen but negative C diff toxin. 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 Son tells me that she has a history of a portion of her bowel being taken out and she is on loperamide at home for diarrhea. However this diarrhea she is having is out of the norm for her. * Out of an abundance of caution we will treat with oral vancomycin for 10 days. Continue loperamide. Enteric panel also negative. * #UTI: * Urinalysis does show 3+ bacteria and urine nitrites were positive with elevated leukocyte esterase as well. 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 Follow-up with pulmonology on outpatient basis. #History of dementia with behavioral disturbance: On Seroquel 25mg qhs prn. #Depression and anxiety: On escitalopram DVT prophylaxis: lovenox Disposition; awaiting placement. Family now safely thinking of taking her home but want to wait till tomorrow to see how she does with therapy today. Medications at Discharge Home Medications aspirin 81 mg tablet,delayed release 81 mg PO DAILY@0800 [facility] 07/01/20 atorvastatin 20 mg tablet 20 mg PO DAILY #90 tabs 10/24/23 clopidogrel 75 mg tablet (Plavix) 75 mg PO DAILY BLOOD THINNER #90 tabs 10/24/23 escitalopram oxalate 5 mg tablet (Lexapro) 5 mg PO DAILY DEPRESSION #90 tabs 12/12/23 melatonin 3 mg tablet 3 mg PO QHS 01/01/24 loperamide 2 mg capsule 2 mg PO DAILY PRN diarrhea 01/04/24 loperamide 2 mg capsule 4 mg PO DAILY PRN diarrhea 01/04/24 acetaminophen 500 mg tablet 1,000 mg (2 x 500 mg) PO TID PRN Pain 1-10 Or Fever #0 tabs 01/05/24 food supplemt, lactose-reduced 0.08 gram-1.5 kcal/mL oral liquid (Ensure Plus High Protein) 120 ml PO 4X/DAY #60 mL 01/05/24 midodrine 5 mg tablet 10 mg (2 x 5 mg) PO TIDCM #90 tabs 01/05/24 fludrocortisone 0.1 mg tablet 0.1 mg PO BREAKFAST #30 tabs 01/17/24 vancomycin 125 mg capsule 125 mg PO Q6H 5 days #20 caps 01/17/24 Hospital Course Operations None Procedures None Summary of Care Provided Minutes Spent on Discharge: 55 Hospital Course: Patient is an 88 y/o patient with a pMH as outlined who was admitted with a complaint of near syncope. She was at home and per her family her eyes rolled back. She did not have any loss of consciousness but was lethargic. She subsequently came back to normal and was brought in by the ED. Patient had chronically low blood pressure and recently been admitted for orthostatic hypotension. She had been placed on midodrine. He had generally been weak. COVID test was done per family request and this was positive. She was admitted and managed for debility and weakness as well as presyncope in the setting of COVID. She was asymptomatic from the COVID standpoint. Fludrocortisone was also ordered due to persistent orthostatic hypotension and FLETCHER stockings were also ordered. She had had an echo just about a week ago which showed EF of 65% with stage I diastolic dysfunction and negative bubble study. Hospital course was complicated by diarrhea. She did have a history of C. difficile and C. difficile screen showed positive C. difficile antigen but negative C. difficile toxin. This indicated that she was more likely a carrier but in light of her diarrhea, out of an abundance of precaution she was placed on p.o. vancomycin to treat C. difficile. Family initially wanted patient to go home but subsequently agreeable to patient going to a care home facility as recommended by PT OT. Hospital course was complicated by lethargy and she had a CT of the brain which showed no evidence of a stroke. She was discharged to a care home facility on 01/17/2024. She is follow-up with her primary care doctor within 1 to 2 weeks. She was also given a prescription for p.o. fludrocortisone 0.1 mg daily to help with her orthostatic hypotension. Patient seen and examined prior to discharge. She had no active complaints. Daughters were by her bedside. Review of systems was otherwise negative. Labs and vitals reviewed. Home meds reviewed and reconciled. Physical Exam Const alert, oriented x3 and no apparent distress Constitutional Narrative: frail and weak General Appearance: cooperative, comfortable, well kempt and well developed Orientation / Consciousness: awake Exam Limitations: no limitations HEENT normocephalic, head/scalp atraumatic, hearing grossly normal bilaterally and moist oral mucous membranes Eyes PERRL and EOMs intact bilaterally Neck no lymphadenopathy and supple Lymph Lymphatic: no lymphadenopathy noted and no lymphedema noted Resp normal respiratory effort, normal air movement and clear to auscultation bilaterally Cardio regular rate, regular rhythm, S1 normal heart sound, S2 normal heart sound and no murmurs GI normal to inspection, nondistended, normoactive bowel sounds, soft to palpation, non-tender and non-distended Extremity normal to inspection, full ROM, normal capillary refill, no clubbing, cyanosis or edema and no calf tenderness General Extremity: no tenderness to palpation of joints or extremities Skin no rashes or lesions noted General Skin Exam: no breakdown Neuro oriented x3, CN's II-XII intact bilaterally, moves all extremities and no focal motor deficits Sensorium / Orientation: awake Motor Exam: general weakness Psych thought process normal and cooperative Psych Narrative: flat affect Appearance: appropriate Weight / BMI Weight Weight: 104 lb 7.986 oz Body Mass Index (BMI) 19.1 ABG / Lab / Microbiology Data 01/17/24 06:12 01/17/24 06:12 Laboratory: Laboratory Results - last 24 hr 01/17/24 06:12: WBC 7.2, RBC 3.78 L, Hgb 10.7 L, Hct 33.2 L, MCV 87.8, MCH 28.3, MCHC 32.2, RDW Std Deviation 40.8, RDW Coeff of Devyn 12.5, Plt Count 279, MPV 10.2, Immature Gran % (Auto) 0.100, Neut % (Auto) 62.7, Lymph % (Auto) 18.5 L, M lupe % (Auto) 17.2 H, Eos % (Auto) 1.1, Baso % (Auto) 0.4, Absolute Neuts (auto) 4.5, Absolute Lymphs (auto) 1.34, Nucleated RBC % 0, Sodium 141, Potassium 3.3 L , Chloride 105, Carbon Dioxide 24.0, Anion Gap 12, BUN 9, Creatinine 0.47 L, Estim Creat Clear Calc 37.77, Est GFR (MDRD) Af Amer 163, Est GFR (MDRD) Non-Af 135, BUN/Creatinine Ratio 19.3, Glucose 88, Calcium 8.9 Microbiology: Microbiology 01/14/24 10:00 Stool Enteric Bacteriology - Final 01/14/24 10:00 Stool C. difficile GDH Antigen & Toxins - Final 01/14/24 10:00 Stool Clostridioides difficile (PCR) - Final 01/09/24 05:00 Urine Catheter - Catheter Urine Culture - Final Presumptive E. coli 01/09/24 04:45 Stool Enteric Bacteriology - Final 01/09/24 05:00 Stool C. difficile GDH Antigen & Toxins - Final 01/09/24 05:00 Stool Clostridioides difficile (PCR) - Final 01/08/24 12:24 Mucosa - Nose SARS-CoV-2, Influenza & RSV (PCR) - Final SARS-CoV-2 (COVID 19 PCR) Radiography Diagnostic Testing: Radiology Impression Brain CT 01/16/24 15:44 IMPRESSION: Moderate atrophy and periventricular white matter ischemic change. No evidence for acute intracranial bleed. MRI would be useful for further evaluation if clinically warranted Electronically Signed: Tani Drummond MD at 17:16 EST Reading Location ID and State: [address] [place] [address] Tel , Service support , D/C Instructions Discharge Diet: Low fat / Low cholesterol Discharge Activity: Return to Normal Activity Weight Bearing Status: Weight bearing as tolerated Call your doctor if you observe: Fever of 101 or Higher, Shortness of breath, Dizziness, Swelling in the ankles and Chest pain Meaningful Use Info Meaningful Use Meaningful Use Diagnoses (Choose all that apply): None applicable Ischemic Stroke Statin Dosing Therapy Reference: STATIN DOSE THERAPY REFERENCE: * Patients > 75 years receive moderate or high dose statin therapy. * Patients 75 years or YOUNGER should receive HIGH intensity statin dose unless contraindicated. You will be required to document reason for non-treatment if statin daily dose does not meet guidelines. HIGH DOSE STATIN THERAPY DAILY Atorvastatin > than or = to 40 mg Rosuvastatin > than or = to 20 mg Amlodipine + Atorvastatin > than or = to 2.5/40 mg Ezetimibe + Simvastatin 10/80 mg Simvastatin 80mg Discharge Plan Admission Admit Date/Time: 01/08/24 15:23 Primary Reason for Your Visit: debility, weakness, orthostatic hypotension Attending Provider: Shani Brandt Primary Care Provider: Jennifer Klein Consulting Providers: Kelly Walker Instructions Patient Instructions: Orthostatic Hypotension, ED FALL-from [id number]-[id number] Discharge Orders/Prescriptions Prescriptions: New fludrocortisone 0.1 mg Tablet 0.1 mg PO BREAKFAST Qty: 30 1RF vancomycin 125 mg capsule 125 mg PO Q6H 5 Days Qty: 20 0RF Continued aspirin 81 MG tablet,delayed release (DR/EC) 81 mg PO DAILY@0800 melatonin 3 mg tablet 3 mg PO QHS loperamide 2 mg capsule 4 mg PO DAILY PRN (Reason: diarrhea) loperamide 2 mg capsule 2 mg PO DAILY PRN (Reason: diarrhea) Rx Instructions: pt takes 4mg daily. If pt has diarrhea within 30 minutes of taking 4mg pt takes 2mg x1 dose. midodrine 5 mg Tablet 10 mg PO TIDCM Qty: 90 0RF acetaminophen 500 mg Tablet 1,000 mg PO TID PRN (Reason: Pain 1-10 Or Fever) Qty: 0 0RF Ensure Plus High Protein 0.08 gram-1.5 kcal/mL Liquid 120 ml PO 4X/DAY Qty: 60 0RF atorvastatin 20 mg tablet 20 mg PO DAILY Qty: 90 1RF clopidogrel [Plavix] 75 mg tablet 75 mg PO DAILY Qty: 90 3RF escitalopram oxalate [Lexapro] 5 mg tablet 5 mg PO DAILY Qty: 90 3RF Referrals / Follow Up: Jennifer Klein MD [Primary Care Provider] - Within 1 Week Disposition Disposition (needs filled in before D/C Order can be placed): Shelter Facility Charges/Coding Visit Charges Inpatient E&M: 10818 Disch Hosp >30min
--- NOTE | 2024-01-17 10:06 | NURSING ---
This RN had conversation with daughters Silvia and Joi, updated on POC and that patient is still very drowsy. Joi stated oh dont worry we will go wake her up. Attempted to educate about patient safety and not to feed patient while drowsy due to choking risk. Family expressed concern about patient status, educated family to discuss concerns with MD. Dr Brandt notified family in room and wishing to discuss POC. Dr Brandt let this RN know patient was going to be discharged, family insisting on taking her home despite recommendations. This RN entered room due to bed exit going off, family attempting to get patient dressed and urge her into the restroom. This RN stepped in to help patient to the bathroom. Patient unsteady, impulsive, and needing lots of direction. Family expressed concern about ambulation abilities, educated that patient has needed 1-2x assistance throughout stay, as previously discussed. Family let this RN know they changed their mind and would like to go to [facility]. manager of environmental services updated.
--- NOTE | 2024-01-17 10:57 | PHA.DC.MR.R ---
Pharmacy [place] Med Reconciliation Pharmacy Service has performed discharge medication reconciliation for this patient. The patient's discharge medication list was reviewed for discrepancies and discrepancies were resolved. Medications at Discharge Home Medications aspirin 81 mg tablet,delayed release 81 mg PO DAILY@0800 [facility] 07/01/20 atorvastatin 20 mg tablet 20 mg PO DAILY #90 tabs 10/24/23 clopidogrel 75 mg tablet (Plavix) 75 mg PO DAILY BLOOD THINNER #90 tabs 10/24/23 escitalopram oxalate 5 mg tablet (Lexapro) 5 mg PO DAILY DEPRESSION #90 tabs 12/12/23 melatonin 3 mg tablet 3 mg PO QHS 01/01/24 loperamide 2 mg capsule 2 mg PO DAILY PRN diarrhea 01/04/24 loperamide 2 mg capsule 4 mg PO DAILY PRN diarrhea 01/04/24 acetaminophen 500 mg tablet 1,000 mg (2 x 500 mg) PO TID PRN Pain 1-10 Or Fever #0 tabs 01/05/24 food supplemt, lactose-reduced 0.08 gram-1.5 kcal/mL oral liquid (Ensure Plus High Protein) 120 ml PO 4X/DAY #60 mL 01/05/24 midodrine 5 mg tablet 10 mg (2 x 5 mg) PO TIDCM #90 tabs 01/05/24 fludrocortisone 0.1 mg tablet 0.1 mg PO BREAKFAST #30 tabs 01/17/24 vancomycin 125 mg capsule 125 mg PO Q6H 5 days #20 caps 01/17/24
[2024-01-17] MEDS: Loperamide 2 MG Capsule PO (12:18)
[2024-01-17] MEDS: Potassium Chloride Oral Tablet 20 MEQ 40 MEQ PO (12:18)
--- NOTE | 2024-01-17 12:19 | CASEMGMT ---
Discharge Planning Discharge orders, signed med list, and transport time sent to [facility]. Physicians will transport patient by cot at 4p. Nursing and SW updated. Nursing to updated pts daughters. Emma Frausto DC Planning Asst.
--- NOTE | 2024-01-17 14:17 | NURSING ---
Report called to Ken at [facility].
[2024-01-17 15:21] VITALS: BP 159/98; PULSE 71; RESP 18; TEMP 36.4; O2SAT 92
== END 2024-01-17 16:48 | disposition skilled nursing facility (03) | DRG 178 ==
LOC: ED 12:28 → PCU 15:43
PROVIDERS: Internal Medicine; Admitting Provider Internal Medicine; Emergency Provider Emergency Medicine; PCP Internal Medicine; Visit Provider Student in an Organized Health Care Education/Training Program
DX: U07.1 COVID-19 (principal); N39.0 Urinary tract infection, site not specified; Z68.1 Body mass index [BMI] 19.9 or less, adult; R62.7 Adult failure to thrive; F03.90 Unspecified dementia, unspecified severity, without behavioral disturbance, psychotic disturbance, mood disturbance, and anxiety; F32.A Depression, unspecified; E87.6 Hypokalemia; I95.1 Orthostatic hypotension; F41.9 Anxiety disorder, unspecified; E83.42 Hypomagnesemia; R91.8 Other nonspecific abnormal finding of lung field; B96.20 Unspecified Escherichia coli [E. coli] as the cause of diseases classified elsewhere; Z87.891 Personal history of nicotine dependence; Z79.83 Long term (current) use of bisphosphonates; Z86.718 Personal history of other venous thrombosis and embolism; Z79.82 Long term (current) use of aspirin; Z79.02 Long term (current) use of antithrombotics/antiplatelets; Z86.73 Personal history of transient ischemic attack (TIA), and cerebral infarction without residual deficits; R63.6 Underweight
CPT/HCPCS: 36415; 70450; 71045; 71275; 80048; 81001; 83735; 84100; 84484; 85025; 87086; 87088; 87186; 87493; 87506; 87631; 93005; 97116; 97162; 97166; 97530; 97535; 97803; 99285; J7030; J7040; Q9967; A4216

== ENCOUNTER → 2024-01-30 | Outpatient (CLI) | payer MEDICARE, SELFPAY ==
[2024-01-30 15:21] LABS: Color, Urine Yellow (Yellow); Glucose, Dipstick Normal (Normal); Ketone-Dipstick Negative (Negative); Leukocyte Esterase-Dipstick 500 /ul (Negative); Nitrite-Dipstick Positive (Negative); Occult Blood-Urine 25 /ul (Negative); Protein-Dipstick 30 mg/dl (Negative); Specific Gravity, Urine 1.025 (1.002-1.030); Urine Bilirubin Dipstick Negative (Negative); Urine Clarity Cloudy (Clear); Urine Urobilinogen Normal (Normal)
[2024-01-30 15:40] LABS: Hyaline Cast 5-10 SEEN /lpf (0-5)
[2024-01-30 15:42] LABS: Red Blood Cells-Urine 0-5 SEEN /hpf (0-5); Renal Epithelial Cells 0-5 SEEN /hpf (0-5); Squamous Epithelial Cells - UA 0-5 SEEN /hpf (5-10); White Blood Cells 50-100 SEEN /hpf (0-5)
[2024-01-30 15:43] LABS: Bacteria 4+ /hpf (None Seen); Mucous, Urine 2+ /hpf (<or=2+)
[2024-01-30 15:44] LABS: Fine Granular Cast- Urine 0-5 SEEN /lpf (0-5)
== END | disposition home or self-care (01) ==
LOC: BIMLAB 13:32
PROVIDERS: PCP Internal Medicine; Visit Provider Internal Medicine
DX: N39.0 Urinary tract infection, site not specified (principal)
CPT/HCPCS: 81001; 87077; 87086; 87088; 87186

== ENCOUNTER 2024-02-12 01:36 | Observation (INO) | payer MEDICARE, SELFPAY ==
[2024-02-12] VITALS (8 sets, daily range): BP systolic 123–156; BP diastolic 55–110; PULSE 66–78; RESP 16–18; TEMP 36.4–37.2; O2SAT 95–100; BMI 18.7; BMI 18.1
--- NOTE | 2024-02-12 01:52 | CT_ITS ---
INDICATION: altered mental status EXAMINATION: CT BRAIN - CT Head or Brain W/O Contrast Injection TECHNIQUE: Multiple axial images were obtained of the head with sagittal and coronal reconstructed images. Individualized dose optimization techniques were used for this CT. IV contrast dosage and agent: None. COMPARISON: 01/16/2024 CT. FINDINGS: BRAIN PARENCHYMA: No evidence of an acute infarct or intracranial hemorrhage. No evidence of a mass. White matter changes consistent with mild chronic microvascular disease. CSF SPACES: The ventricles, sulci and subarachnoid cisterns are appropriate for age. CALVARIUM, SKULL BASE, PARANASAL SINUSES AND MASTOID AIR CELLS: No fracture. Mastoid air cells are clear. Mucosal thickening of the left maxillary, left ethmoid and left sphenoid sinuses. ORBITS: The globes, extraocular muscles, optic nerves and retrobulbar fat are unremarkable. CT/Brain/Head without Contrast IMPRESSION: 1. No acute intracranial abnormality. 2. Sinus disease. Electronically Signed: Tani Knapp DO at 3:16 EST ,
--- NOTE | 2024-02-12 01:53 | EKG12_ITS ---
Test Reason : DYSRHYTHMIA Blood Pressure : */* mmHG Vent. Rate : 69 BPM Atrial Rate : 69 BPM P-R Int : 156 ms QRS Dur : 134 ms QT Int : 460 ms P-R-T Axes : 62 -41 4 degrees QTcB Int : 492 ms Normal sinus rhythm Left axis deviation Right bundle branch block Minimal voltage criteria for LVH, may be normal variant ( R in aVL ) Abnormal ECG Confirmed by Luiz Bell ([id number]), editor managing director CORNELIO BRYSON ([id number]) on 02/13/2024 11:40:16 AM Referred By: Confirmed By: Luiz Bell
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
[2024-02-12 02:25] LABS: Absolute Lymphocyte Count 2.34 X10^3/uL (0.83-4.51); Absolute Neutrophil Count 5.2 X10^3/uL (2.0-7.7); Basophil# 0.11 X10^3/uL; Basophil% 1.2 % (0-1); Eosinophil# 0.28 X10^3/uL; Eosinophils% 3.1 % (0-5); Hematocrit 30.9 % (37-47); Hemoglobin 9.9 g/dL (12.0-15.0); Lymphocyte # 2.34 X10^3/ul (0.83-4.51); Mean Corpuscular Hgb 29.1 pg (27.0-32.0); Mean Corpuscular Volume 90.9 fL (81-99); Mean Platelet Vol. 9.1 fl (6.2-12.0); Monocyte# 1.01 X10^3/uL; Monocyte% 11.2 % (0-10); NRBC Flagged by Analyzer 0 % (0-5); Neutrophil # 5.22 X10^3/uL (2.7-7.7); Neutrophil % 58.1 % (47-70); Platelet Count 444 K/mm3 (150-450); RBC Distribution Width CV 13.4 % (11.6-14.6); RBC Distribution Width SD 44.5 fl (35.1-43.9)
--- NOTE | 2024-02-12 02:32 | RAD_ITS ---
INDICATION: weakness EXAMINATION/TECHNIQUE: X-RAY - XR Chest 2 Views COMPARISON: 01/08/2024. FINDINGS: LINES/DEVICES: None. LUNGS: No consolidation or evidence of an effusion. No evidence of edema or a pneumothorax. Hyperinflation of the lungs which may represent COPD. MEDIASTINUM AND CARDIOVASCULAR STRUCTURES: Cardiac silhouette is normal in size and contour. Mediastinum is unremarkable. BONES AND SOFT TISSUES: No acute abnormality. Stable L1 and L2 compression fractures as compared to 07/22/2023. RAD/Chest PA and Lateral IMPRESSION: No evidence of acute cardiopulmonary disease. Electronically Signed: Tani Knapp DO at 3:20 EST ,
[2024-02-12 02:48] LABS: ALB/GLOB Ratio 0.8 RATIO (0.9-2.4); AST(SGOT) 24 U/L (15-37); Alanine Aminotransfer ALT/SGPT 22 U/L (13-56); Albumin, Serum 3.4 g/dL (3.2-5.0); Alkaline Phosphatase 91 U/L (45-117); Anion Gap 7 (5-15); BUN 22 mg/dL (7-18); BUN/Creat Ratio 30.4 RATIO (10-20); Calcium,Total 8.7 mg/dL (8.5-10.1); Chloride 110 mmol/L (98-107); Creatinine, Serum 0.72 mg/dL (0.55-1.02); EST Glomerular Filtration Rate 81 mL/min (>60); Est Glom Filt Rate - Afr Amer 98 mL/min (>60); Estimated Creatinine Clearance 36.98 ml/min; Glucose 84 mg/dL (74-106); Potassium 2.6 mmol/L (3.5-5.1); Protein, Total 7.4 g/dL (6.4-8.2); Sodium Level 144 mmol/L (136-145); Troponin-I HS 19 pg/mL (3.0-54.0)
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
[2024-02-12 03:45] LABS: Bacteria 0 SEEN /hpf (None Seen); Mucous, Urine 0 SEEN /hpf (<or=2+); Red Blood Cells-Urine 0 SEEN /hpf (0-5); Squamous Epithelial Cells - UA 0 SEEN /hpf (5-10); White Blood Cells 0 SEEN /hpf (0-5)
[2024-02-12 03:47] LABS: Color, Urine Yellow (Yellow); Glucose, Dipstick Normal (Normal); Ketone-Dipstick Negative (Negative); Leukocyte Esterase-Dipstick Negative /ul (Negative); Nitrite-Dipstick Negative (Negative); Occult Blood-Urine Negative /ul (Negative); Protein-Dipstick 30 mg/dl (Negative); Specific Gravity, Urine 1.025 (1.002-1.030); Urine Bilirubin Dipstick Negative (Negative); Urine Clarity Clear (Clear); Urine Urobilinogen Normal (Normal)
[2024-02-12 03:49] LABS: Magnesium 1.4 mg/dL (1.6-2.6); Phosphorus 2.6 mg/dL (2.5-4.9)
[2024-02-12] MEDS: Potassium Chloride 10mEq/100mL 10 MEQ/100 ML IV.SOLN. 100 MEQ IV BOLUS ×5 (04:13→13:57)
[2024-02-12] MEDS: Potassium Chloride Oral Tablet 20 MEQ PO (04:16)
[2024-02-12] MEDS: Magnesium Sulfate 4gm/100mL 4 GM/100 ML IV.SOLN. IV (05:46)
[2024-02-12 06:45] LABS: Ferritin 104 ng/mL (8-252); Iron 32 ug/dL (50-170); Iron Binding Capacity,Total 306 ug/dL (250-450); PERCENT IRON SATURATION 10.5 % (15.0-55.0)
[2024-02-12 06:49] LABS: Anion Gap 9 (5-15); BUN 17 mg/dL (7-18); Calcium,Total 8.1 mg/dL (8.5-10.1); Chloride 112 mmol/L (98-107); Creatinine, Serum 0.61 mg/dL (0.55-1.02); EST Glomerular Filtration Rate 99 mL/min (>60); Est Glom Filt Rate - Afr Amer 120 mL/min (>60); Estimated Creatinine Clearance 35.86 ml/min; Glucose 99 mg/dL (74-106); Potassium 2.4 mmol/L (3.5-5.1); Sodium Level 144 mmol/L (136-145)
[2024-02-12] MEDS: Haloperidol Lactate 5 MG/ML Vial 2 MG IM (07:04)
[2024-02-12] MEDS: 0.9% Normal Saline (500mL Bag) 500 ML 15 ML IV (10:29)
[2024-02-12] MEDS: Enoxaparin 40 MG/0.4 ML Syringe SC (11:29)
[2024-02-12] MEDS: Clopidogrel Bisulfate 75 MG Tablet PO (11:29)
[2024-02-12] MEDS: Midodrine HCl 5 MG Tablet 10 MG PO ×2 (11:29→17:24)
[2024-02-12] MEDS: Escitalopram Oxalate 10 MG Tablet 5 MG PO (11:29)
[2024-02-12] MEDS: FLU VACCINE **HIGH DOSE** TV 24-25 180 MCG/0.5 ML SYRINGE IM (11:36)
[2024-02-12] MEDS: Acetaminophen 325 MG Tablet 650 MG PO ×2 (11:37→21:32)
--- NOTE | 2024-02-12 12:52 | PCM.PROGNOTE ---
Subjective Subjective Patient seen and examined. She was lethargic and lying in bed. Review of systems is otherwise negative. She was admitted on account of altered mental status. She does have underlying dementia with behavioral disturbance and failure to thrive. She has been hemodynamically stable. Objective Data Objective Data Vital Signs: Vital Signs Temp Pulse Resp BP Pulse Ox O2 Del Method 98.9 F 72 16 133/55 H 97 Room Air 02/12/24 10:12 02/12/24 10:12 02/12/24 10:12 02/12/24 10:12 02/12/24 10:12 02/12/24 10:12 Oxygen Delivery Method Room Air Weight: 99 lb 3.328 oz Body Mass Index (BMI) 18.1 Intake & Output: Intake and Output for Last 24 Hours 02/10/24 02/11/24 02/12/24 23:59 23:59 23:59 Intake Total 620 / 620 Balance 620 / 620 Lab / Micro Data 02/12/24 02:19 02/12/24 05:35 Labs: Laboratory Results - last 24 hr 02/12/24 01:54: Folate 14.90, TSH 4.740 H 02/12/24 02:19: WBC 9.0, RBC 3.40 L, Hgb 9.9 L, Hct 30.9 L, MCV 90.9, MCH 29.1, MCHC 32.0, RDW Std Deviation 44.5 H, RDW Coeff of Devyn 13.4, Plt Count 444, MPV 9.1, Immature Gran % (Auto) 0.400, Neut % (Auto) 58.1, Lymph % (Auto) 26.0, [place] % (Auto) 11.2 H, Eos % (Auto) 3.1, Baso % (Auto) 1.2 H, Absolute Neuts (auto) 5.2, Absolute Lymphs (auto) 2.34, Nucleated RBC % 0, Sodium 144, Potassium 2.6 L*, Chloride 110 H, Carbon Dioxide 27.0, Anion Gap 7, BUN 22 H, Creatinine 0.72, Estim Creat Clear Calc 36.98, Est GFR (MDRD) Af Amer 98, Est GFR (MDRD) Non-Af 81, BUN/Creatinine Ratio 30.4 H, Glucose 84, Calcium 8.7, Phosphorus 2.6, Magnesium 1.4 L, Total Bilirubin 0.30, AST 24, ALT 22, Alkaline Phosphatase 91, Troponin I High Sens 19, Total Protein 7.4, Albumin 3.4, Globulin 4.0, Albumin/Globulin Ratio 0.8 L 02/12/24 03:35: Urine Color Yellow, Urine Clarity Clear, Urine pH 6.0, Ur Specific Griffin 1.025, Urine Protein 30 H, Urine Glucose (UA) Normal, Urine Ketones Negative, Urine Occult Blood Negative, Urine Nitrite Negative, Urine Bilirubin Negative, Urine Urobilinogen Normal, Ur Leukocyte Esterase Negative, Urine RBC 0 SEEN, Urine WBC 0 SEEN, Ur Squamous Epith Cells 0 SEEN, Urine Bacteria 0 SEEN, Urine Mucus 0 SEEN 02/12/24 05:35: Sodium 144, Potassium 2.4 L*, Chloride 112 H, Carbon Dioxide 23.0, Anion Gap 9, BUN 17, Creatinine 0.61, Estim Creat Clear Calc 35.86, Est GFR (MDRD) Af Amer 120, Est GFR (MDRD) Non-Af 99, BUN/Creatinine Ratio 28.0 H, Glucose 99, Calcium 8.1 L, Iron 32 L, TIBC 306, Iron Saturation 10.5 L, Ferritin 104 Radiography Diagnostic Testing: Radiology Impression Brain CT 02/12/24 01:52 IMPRESSION: 1. No acute intracranial abnormality. 2. Sinus disease. Electronically Signed: Tani Knapp DO at 3:16 EST , Chest X-Ray 02/12/24 02:32 IMPRESSION: No evidence of acute cardiopulmonary disease. Electronically Signed: Tani Knapp DO at 3:20 EST , Rhythm Strip Rhythm Strip: Sinus Rhythm Rate: 70 Ectopy: None Physical Exam Const alert and no apparent distress Constitutional Narrative: confused Orientation / Consciousness: lethargic HEENT normocephalic, head/scalp atraumatic and moist oral mucous membranes Eyes PERRL and EOMs intact bilaterally Neck no lymphadenopathy and supple Lymph Lymphatic: no lymphadenopathy noted and no lymphedema noted Resp normal respiratory effort, normal air movement and clear to auscultation bilaterally Cardio regular rate, regular rhythm, S1 normal heart sound, S2 normal heart sound and no murmurs GI normal to inspection, nondistended, normoactive bowel sounds, soft to palpation, non-tender and non-distended Extremity normal capillary refill, no clubbing, cyanosis or edema and no calf tenderness General Extremity: no tenderness to palpation of joints or extremities Skin General Skin Exam: no breakdown Neuro CN's II-XII intact bilaterally, no focal motor deficits, no sensory deficits noted and deep tendon reflexes 2+ bilaterally Motor Exam: general weakness Psych Psych Narrative: confused Assessment & Plan Assessment/Plan (1) Dementia with behavioral disturbance: (2) Acute hypokalemia: (3) Adult failure to thrive: (4) UTI (urinary tract infection): PLAN: Plan #Acute encephalopathy in the setting of dementia with behavioral disturbance was recently admitted for similar complaints and found to have covid and UTI she recently had a urine culture by her PCP which grew Enterococcus. It is not clear if she was treated for it. CT brain showed no acute intracranial pathology. Remeron on hold. on IV ceftriaxone. Urine culture pending. Will benefit from geripsych placement # Debility with adult failure to thrive Patient is unable to take care of herself at home. Lives in a trailer, and her son lives with her to help her out. PT OT on board. Patient will benefit from placement. Case management on board. #Hypokalemia: Potassium is 2.4 today. Will replace aggressively. Magnesium is also 1.4. Will replace. #Probable UTI She was treated for UTI during her previous admission in early January. She had urinalysis done at her PCPs office on 01/30/2024 which showed evidence of UTI urine culture grew Enterobacter and Proteus. It was unclear if patient was ever treated for this UTI. Repeat urinalysis showed no evidence of UTI Will therefore hold off on initiation of antibiotics. 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 This is known to patient and her family and they have not wanted it worked up so far. Patient has not been worked up for this. Follow-up with pulmonology on outpatient basis as decided. #Anxiety and depression: On escitalopram. Stable. #History of C. difficile Had diarrhea during previous admission and tested positive for C. difficile antigen but negative for toxins. However she was treated for C. difficile with oral vancomycin for 10 days. Currently not having any diarrhea. Stable. DVT prophylaxis: Lovenox Disposition: PT OT on board. Will benefit from geropsych placement. Of note was recommended that patient should be placed in SNF during last admission but patient and family refused. Charges/Coding Visit Charges Inpatient E&M: 45681 Subs Hosp L2
[2024-02-12] MEDS: Ensure Plus High Protein 120 ML LIQUID PO ×2 (17:24→21:44)
[2024-02-12] MEDS: Atorvastatin Calcium 20 MG Tablet PO (21:32)
[2024-02-12] MEDS: MELATONIN 3 MG TABLET PO (21:32)
[2024-02-13 04:35] VITALS: BP 157/89; PULSE 76; RESP 16; TEMP 36.9; O2SAT 94
[2024-02-13 07:08] LABS: Hematocrit 28.9 % (37-47); Hemoglobin 9.2 g/dL (12.0-15.0); Mean Corp Hgb Conc 31.8 g/dL (32-36); Mean Corpuscular Hgb 28.3 pg (27.0-32.0); Mean Corpuscular Volume 88.9 fL (81-99); Mean Platelet Vol. 9.5 fl (6.2-12.0); Platelet Count 436 K/mm3 (150-450); RBC Distribution Width CV 13.6 % (11.6-14.6); RBC Distribution Width SD 43.8 fl (35.1-43.9); Red Blood Count 3.25 M/mm3 (4.2-5.4); White Blood Count 7.5 K/mm3 (4.4-11.0)
[2024-02-13 07:30] VITALS: BP 151/69; PULSE 82; RESP 16; TEMP 36.7; O2SAT 93
[2024-02-13 07:31] LABS: Anion Gap 7 (5-15); BUN 9 mg/dL (7-18); BUN/Creat Ratio 19.6 RATIO (10-20); Calcium,Total 8.5 mg/dL (8.5-10.1); Chloride 110 mmol/L (98-107); Creatinine, Serum 0.46 mg/dL (0.55-1.02); EST Glomerular Filtration Rate 137 mL/min (>60); Est Glom Filt Rate - Afr Amer 166 mL/min (>60); Estimated Creatinine Clearance 35.86 ml/min; Glucose 102 mg/dL (74-106); Sodium Level 141 mmol/L (136-145)
[2024-02-13] MEDS: Aspirin E.C. 81 MG Tablet PO (07:42)
[2024-02-13] MEDS: Fludrocortisone Acetate 0.1 MG Tablet PO (07:42)
[2024-02-13] MEDS: Midodrine HCl 5 MG Tablet 10 MG PO ×3 (07:43→17:39)
[2024-02-13 09:51] LABS: Magnesium 2.2 mg/dL (1.6-2.6)
[2024-02-13] MEDS: Potassium Chloride Oral Tablet 20 MEQ 60 MEQ PO (10:03)
[2024-02-13] MEDS: Escitalopram Oxalate 10 MG Tablet 5 MG PO ×2 (10:03→15:47)
[2024-02-13] MEDS: Clopidogrel Bisulfate 75 MG Tablet PO (10:03)
[2024-02-13] MEDS: Enoxaparin 40 MG/0.4 ML Syringe SC (10:04)
--- NOTE | 2024-02-13 10:08 | CASEMGMT ---
Addendum entered by Merline Robledo 02/13/24 14:58: Social Work- SW received notice from grease worker that pt will d/c home. grease worker sates that physician was in meeting with pt, pt family, and grease worker and is in agreement with d/c plans. SW remains available to follow. FITO Rivas Addendum entered by Merline Robledo 02/13/24 12:58: Social Work- SW called pt son, as he called in and spoke with nurse, angry that pt family was not consulted prior to crisis involvement. Pt son, Ant, verbalized frustration and anger and reports that pt has had a poor experience at [facility] prior, eris c-diff during stay. SW encouraged Ant that SW is attempting to assist with current frustration and offered support is finding a resolution. Ant reports that Dr Grijalva pulled pt off Remeron three days ago and informed pt son that pt would have withdrawal symptoms. Ant reports the first day, pt acted out for 30 minutes. The second day is when pt had 4.5 hr episode of increased behaviors and pt was brought in; Ant reports that he was fearful that pt would hurt herself. Ant reports that at no time did he agree to have pt placed, as he was anticipating the withdrawal behaviors to clear up by today. There is no POA in place. SW provided support and education that placement was sought per physician recommendation for safety, but physician is willing to have pt re-assessed by crisis today to determine needs. grease worker reports that she will be at [facility] within the next hour. Pt son agreeable to recommendations; would like to have pt d/c home. Ant reports that pt dtr will be in to [facility] as well. Bedside nurse updated as well as charge nurse and physician. FITO Rivas Addendum entered by Merline Robledo 02/13/24 10:28: [facility] reports they assessed pt yesterday and will move forward with looking for placement d/t medical improvements today. FITO Rivas Original Note: Social Work- IVONNE completed crisis referral per physician request for [facility]-pysch placement. IVONNE called to confirm receipt. IVONNE will remain available to follow. FITO Rivas
--- NOTE | 2024-02-13 13:05 | CASEMGMT ---
Addendum entered by Amaris Sorensen 02/13/24 14:07: Received tc back from Jensen who states that this weekend pt dtr called in and stated pt was hallucinating and asked if the remeron could be stopped and Dr. Klein ok'd this. Med has been stopped since Tuesday or Tuesday. Addendum entered by Amaris Sorensen 02/13/24 13:08: Pt is active with [facility] SN, PT and OT services. Original Note: Noted in Dr. Klein's note, pt remeron dose [facility] but timing was suggested to be changed. TC to Leslie at [facility], they note that pt is taking 7.5mg daily or remeron. TC to 's office, spoke with Jensen who states that pt current dose is 7.5 mg daily. Made aware of pt admission to [facility] and son stating pt had remeron dc'd. She states she will speak to and call this RN CM back.
[2024-02-13 13:25] VITALS: BP 139/83
[2024-02-13 13:47] LABS: Vitamin B12 384 pg/mL (211-911)
--- NOTE | 2024-02-13 14:10 | CASEMGMT ---
Met with patient and her children to complete GERMAIN form. GERMAIN form explained to all who voiced understanding and signed form. Original form placed in pt?s chart and copy provided to patient. Emma Frausto, Discharge Planning Asst
[2024-02-13 14:27] VITALS: BP 139/81; PULSE 91; RESP 16; TEMP 37.3; O2SAT 93
[2024-02-13] MEDS: busPIRone 5 MG Tablet 10 MG PO ×2 (15:47→21:25)
[2024-02-13] MEDS: QUEtiapine 25 MG Tablet 12.5 MG PO ×2 (15:48→21:25)
--- NOTE | 2024-02-13 16:08 | CHAPLAIN ---
Type of Pastoral Visit ___ Initial Visit ___ Follow-up Visit ___ On-call Visit ___ General Patient Visit ___ Spiritual Assessment ___ Family Conference ___ Bereavement ___ Rapid Response ___ Code Blue ___ Other (describe below) Pastoral Care Referral From ___ Patient ___ Family ___ Nurse ___ Physician ___ Venetian Blind Installer ___ Foxpro Developer ___ Other (describe below) Sacrament/Intervention ___ Active listening ___ Anointing ___ Mosque ___ Bereavement ___ Communion ___ Yojana exploration ___ ___ Life review ___ Prayer ___ Reconciliation ___ Sacrament of Sick ___ Supportive presence ___ Wedding ___ Other (describe below) Pastoral Comments Doctor is having meeting with the family at time of attempted visit; security team is also present to assist in keeping the family meeting under control; this agency cashier did not try to make a visit today then
--- NOTE | 2024-02-13 17:34 | PCM.PN.HOSP ---
Reason for Visit Reason for Visit: Diagnoses Hypokalemia (02/12/24) Unspecified dementia, unspecified severity, with other behavioral disturbance (02/12/24) Urinary tract infection, site not specified (02/12/24) Disorientation, unspecified (02/12/24) Adult failure to thrive (02/12/24) Subjective Subjective Patient was seen and examined today, had a conversation with patient's daughter and son in the room this afternoon, patient was calm this morning but this afternoon patient appeared moderately agitated and nervous. I recommended the patient's family that the patient be placed on BuSpar for anxiety, I recommended her Lexapro be increased, and I recommended that we use Seroquel for severe anxiety and agitated behaviors. Patient's family was okay with this. There was some talk about the patient going to a psych facility but the patient's family was not in favor of this at all and I did not feel that that was necessary to have the patient go to a psych facility for treatment. Patient's family requested that the patient remain in the hospital another night to see if she tolerated the medications and I agreed to this. Objective Data Objective Data Vital Signs: Vital Signs Temp Pulse Resp BP Pulse Ox O2 Del Method 99.2 F H 91 16 139/81 H 93 Room Air 02/13/24 14:27 02/13/24 14:27 02/13/24 14:27 02/13/24 14:27 02/13/24 14:27 02/13/24 14:27 Oxygen Delivery Method Room Air Weight: 45 kg Body Mass Index (BMI) 18.1 Intake & Output: Intake and Output for Last 24 Hours 02/11/24 02/12/24 02/13/24 23:59 23:59 23:59 Intake Total 1140 / 1340 200 / 200 Balance 1140 / 1340 200 / 200 Lab / Micro Data 02/13/24 06:21 02/13/24 06:21 Labs: Laboratory Results - last 24 hr 02/12/24 05:35: Vitamin B12 384 02/13/24 06:21: WBC 7.5, RBC 3.25 L, Hgb 9.2 L, Hct 28.9 L, MCV 88.9, MCH 28.3, MCHC 31.8 L, RDW Std Deviation 43.8, RDW Coeff of Devyn 13.6, Plt Count 436, MPV 9.5, Sodium 141, Potassium 3.0 L, Chloride 110 H, Carbon Dioxide 24.0, Anion Gap 7, BUN 9, Creatinine 0.46 L, Estim Creat Clear Calc 35.86, Est GFR (MDRD) Af Amer 166, Est GFR (MDRD) Non-Af 137, BUN/Creatinine Ratio 19.6, Glucose 102, Calcium 8.5, Magnesium 2.2 Rhythm Strip Rhythm Strip: Sinus Rhythm Rate: 70 Ectopy: None Physical Exam Const alert and no apparent distress General Appearance: cooperative, well kempt and well developed Orientation / Consciousness: awake, oriented to person and oriented to place HEENT normocephalic, head/scalp atraumatic and moist oral mucous membranes Eyes PERRL, EOMs intact bilaterally and conjunctivae normal Neck supple, no JVD, thyroid normal and no carotid bruits General: trachea midline Resp normal respiratory effort, no retractions, no use of accessory muscles and clear to auscultation bilaterally Auscultation: Negative for rales, rhonchi or wheezes Cardio regular rate, regular rhythm, no murmurs, no rub and no gallops GI normal to inspection, nondistended, normoactive bowel sounds, soft to palpation, non-tender and non-distended Extremity no clubbing, cyanosis or edema Skin no rashes or lesions noted General Skin Exam: no breakdown Neuro CN's II-XII intact bilaterally, no focal motor deficits and no sensory deficits noted Sensorium / Orientation: awake and alert Speech: speech normal Psych Psych Narrative: Patient appeared agitated at times, she was somewhat directable, she did not strike out today at any individuals in the room. Assessment & Plan Assessment/Plan (1) Dementia with behavioral disturbance: PLAN: Plan 1. Dementia with behavioral disturbances-again patient's Lexapro was increased to 10 mg daily, she was placed on BuSpar 10 mg twice a day and she was placed on Seroquel 12.5 mg twice a day. #2 hyperlipidemia-patient is on atorvastatin #3 hypokalemia-patient's potassium was replaced, BMP will be obtained tomorrow #4 hypotension-patient is on Florinef and midodrine, blood pressure will be monitored #5 cerebrovascular disease-patient is on Plavix Total clinical time spent by myself addressing the patient's medical issues, reviewing all of her data, and collaborating with patient's care team: 50 minutes Charges/Coding Visit Charges Inpatient E&M: 80202 Subs Hosp L3
[2024-02-13 21:20] VITALS: BP 154/79; PULSE 79; RESP 16; TEMP 36.8; O2SAT 98
[2024-02-13] MEDS: Atorvastatin Calcium 20 MG Tablet PO (21:25)
[2024-02-13] MEDS: Acetaminophen 325 MG Tablet 650 MG PO (23:48)
[2024-02-13] MEDS: MELATONIN 3 MG TABLET PO (23:48)
[2024-02-14 06:41] VITALS: BP 152/80; PULSE 81; RESP 15; TEMP 36.5; O2SAT 95
[2024-02-14 07:16] VITALS: O2SAT 94
[2024-02-14 08:14] LABS: Anion Gap 6 (5-15); BUN 16 mg/dL (7-18); BUN/Creat Ratio 31.9 RATIO (10-20); Calcium,Total 8.7 mg/dL (8.5-10.1); Chloride 113 mmol/L (98-107); EST Glomerular Filtration Rate 124 mL/min (>60); Est Glom Filt Rate - Afr Amer 150 mL/min (>60); Estimated Creatinine Clearance 35.86 ml/min; Glucose 96 mg/dL (74-106); Potassium 3.3 mmol/L (3.5-5.1); Sodium Level 144 mmol/L (136-145)
[2024-02-14 08:35] VITALS: BP 146/79; PULSE 98; RESP 16; TEMP 37.1; O2SAT 97
[2024-02-14] MEDS: Aspirin E.C. 81 MG Tablet PO (08:40)
[2024-02-14] MEDS: Midodrine HCl 5 MG Tablet 10 MG PO (08:41)
[2024-02-14] MEDS: busPIRone 5 MG Tablet 10 MG PO (08:41)
[2024-02-14] MEDS: Fludrocortisone Acetate 0.1 MG Tablet PO (08:41)
[2024-02-14] MEDS: Escitalopram Oxalate 10 MG Tablet PO (08:42)
[2024-02-14] MEDS: Enoxaparin 40 MG/0.4 ML Syringe SC (08:42)
[2024-02-14] MEDS: QUEtiapine 25 MG Tablet 12.5 MG PO (08:43)
[2024-02-14] MEDS: Clopidogrel Bisulfate 75 MG Tablet PO (08:43)
[2024-02-14] MEDS: Potassium Chloride Oral Tablet 20 MEQ 40 MEQ PO (10:25)
[2024-02-14] MEDS: Loperamide 2 MG Capsule 4 MG PO (10:26)
--- NOTE | 2024-02-14 12:46 | CASEMGMT ---
CHANTELL CM into pt room, pt lying with eyes closed, sitter and dtr at bedside. Pt dtr states she will be with pt during the day and pt son will be with pt at night. She states the daily routines they do together such as bathing, dressing, toileting. She states someone is always with pt. She administers medications. She would like [facility] to be resumed and denies need for a list of other agencies. She states that her brother has training on the , and at the home and no one can visit at that time. She states [facility] is already aware. TC krystina Nelson at [facility], she is aware pt will dc today and the training. Pt dtr denies further needs.
--- NOTE | 2024-02-14 13:09 | DCINST_ITS ---
Discharge Instructions Diet Discharge Diet: No restrictions DC O2, CPAP, BIPAP needs Additional Home O2 Discharge instructions: No Dressing / Incision Discharge Activity: Return to Normal Activity Weight Bearing Status: Full weight bearing Follow Up Care Test Results: Test results from this visit will be discussed in further detail at your follow- up appointment, if applicable. Discharge Plan Admission Admit Date/Time: 02/12/24 03:39 Primary Reason for Your Visit: Dementia with behavioral disturbances Attending Provider: Jose Price Primary Care Provider: Jennifer Klein Consulting Providers: Alexis Aguila; Shani Brandt Discharge Orders/Prescriptions Prescriptions: New quetiapine 25 mg Tablet 12.5 mg PO BID Qty: 60 0RF Rx Instructions: 2-1 twice a day buspirone 5 mg Tablet 10 mg PO BID Qty: 60 0RF escitalopram oxalate 10 mg Tablet 10 mg PO DAILY Qty: 30 0RF potassium chloride 10 mEq tablet extended release 20 meq PO DAILY Qty: 60 0RF Continued aspirin 81 MG tablet,delayed release (DR/EC) 81 mg PO DAILY@0800 midodrine 5 mg Tablet 10 mg PO TIDCM Qty: 90 0RF acetaminophen 500 mg Tablet 1,000 mg PO TID PRN (Reason: Pain 1-10 Or Fever) Qty: 0 0RF fludrocortisone 0.1 mg Tablet 0.1 mg PO BREAKFAST Qty: 30 1RF atorvastatin 20 mg tablet 20 mg PO DAILY Qty: 90 1RF clopidogrel [Plavix] 75 mg tablet 75 mg PO DAILY Qty: 90 3RF Discontinued mirtazapine 15 mg tablet 7.5 mg PO QDAY escitalopram oxalate [Lexapro] 5 mg tablet 5 mg PO DAILY Qty: 90 3RF Referrals / Follow Up: Jennifer Klein MD [Primary Care Provider] - 02/27/24 11:30 am Disposition Disposition (needs filled in before D/C Order can be placed): Home Health Service
--- NOTE | 2024-02-14 13:16 | PCM.DC.SUM ---
Providers Date of Admission: 02/12/24 Date of Discharge: 02/14/24 Primary Care Physician: Dr. Jennifer Klein MD Reason For Visit: ALTERED MENTATION, HYPOKALEMIA Diagnosis Discharge Diagnosis (1) Dementia with behavioral disturbance: Status: Acute Code(s): F03.918 - Unspecified dementia, unspecified severity, with other behavioral disturbance Plan 1. Dementia with behavioral disturbances-again patient's Lexapro was increased to 10 mg daily, she was placed on BuSpar 10 mg twice a day and she was placed on Seroquel 12.5 mg twice a day. #2 hyperlipidemia-patient is on atorvastatin #3 hypokalemia-patient's potassium was replaced, BMP will be obtained tomorrow #4 hypotension-patient is on Florinef and midodrine, blood pressure will be monitored #5 cerebrovascular disease-patient is on Plavix #6 iron deficiency anemia Total clinical time spent by myself addressing the patient's medical issues, reviewing all of her data, and collaborating with patient's care team: 50 minutes Medications at Discharge Home Medications aspirin 81 mg tablet,delayed release 81 mg PO DAILY@0800 [facility] 07/01/20 acetaminophen 500 mg tablet 1,000 mg (2 x 500 mg) PO TID PRN Pain 1-10 Or Fever #0 tabs 01/05/24 atorvastatin 20 mg tablet 20 mg PO DAILY #90 tabs 02/14/24 buspirone 5 mg tablet 10 mg (2 x 5 mg) PO BID #60 tabs 02/14/24 clopidogrel 75 mg tablet (Plavix) 75 mg PO DAILY BLOOD THINNER #90 tabs 02/14/24 escitalopram oxalate 10 mg tablet 10 mg PO DAILY #30 tabs 02/14/24 fludrocortisone 0.1 mg tablet 0.1 mg PO BREAKFAST #90 tabs 02/14/24 midodrine 5 mg tablet 10 mg (2 x 5 mg) PO TIDCM #180 tabs 02/14/24 potassium chloride 10 mEq tablet,extended release 20 meq (2 x 10 mEq) PO DAILY #60 tabs 02/14/24 quetiapine 25 mg tablet 12.5 mg (1/2 x 25 mg) PO BID #60 tabs 02/14/24 Hospital Course Operations None Procedures None Summary of Care Provided Minutes Spent on Discharge: 32 Hospital Course: This 88-year-old white female was brought to the emergency room at [facility] due to agitated behavior at home including striking out at her TV and windows of her home. Patient has a history of dementia. Labs obtained in the emergency room showed low potassium at 2.4, white blood cell count was normal, hemoglobin was 9.9. Patient was placed into observation status on MedSurg 3, discussion was carried out with criminal justice social worker about placing the patient in a [facility] psych unit, however, family did not wish her to go to a [facility] psych unit and this examiner did not feel there was an overwhelming need to place the patient in the [facility] psych unit. Patient's medications were adjusted while she was hospitalized then her behavior stabilized. On 02/14/2024, patient was seen and examined: On examination she appeared in good health and spirits, she does not appear to be in any distress. Vital signs as documented. Skin warm and dry and without overt rashes. Neck without JVD, thyroid appears normal, trachea is midline, neck is supple. Lungs clear, normal air movement was noted. Heart exam notable for regular rhythm, normal sounds and absence of murmurs, rubs or gallops. Abdomen unremarkable and without evidence of organomegaly, masses, or abdominal aortic enlargement, bowel sounds are present in all 4 quadrants, no abdominal tenderness was noted. Extremities nonedematous, no cyanosis was noted, no clubbing was noted. Neuro: Cranial nerves II through XII are grossly intact, no focal motor deficits were noted, sensation to light touch and pinprick is intact, motor exam 5/5 throughout. Psych: Patient is alert, she is oriented as to place and person, she does not appear agitated On 02/14/2024, patient was discharged home in stable condition, I had a long discussion with the family concerning her medical problems prior to discharge. Weight / BMI Weight Weight: 45 kg Body Mass Index (BMI) 18.1 ABG / Lab / Microbiology Data 02/13/24 06:21 02/14/24 06:58 Laboratory: Laboratory Results - last 24 hr 02/12/24 05:35: Vitamin B12 384 02/14/24 06:58: Sodium 144, Potassium 3.3 L, Chloride 113 H, Carbon Dioxide 25.0, Anion Gap 6, BUN 16, Creatinine 0.50 L, Estim Creat Clear Calc 35.86, Est GFR (MDRD) Af Amer 150, Est GFR (MDRD) Non-Af 124, BUN/Creatinine Ratio 31.9 H, Glucose 96, Calcium 8.7 D/C Instructions Discharge Diet: No restrictions Weight Bearing Status: Full weight bearing DC O2, CPAP, BIPAP Needs Additional Home O2 Discharge instructions: No DC home with Oxygen: No Meaningful Use Info Meaningful Use Meaningful Use Diagnoses (Choose all that apply): None applicable Ischemic Stroke Statin Dosing Therapy Reference: STATIN DOSE THERAPY REFERENCE: * Patients > 75 years receive moderate or high dose statin therapy. * Patients 75 years or YOUNGER should receive HIGH intensity statin dose unless contraindicated. You will be required to document reason for non-treatment if statin daily dose does not meet guidelines. HIGH DOSE STATIN THERAPY DAILY Atorvastatin > than or = to 40 mg Rosuvastatin > than or = to 20 mg Amlodipine + Atorvastatin > than or = to 2.5/40 mg Ezetimibe + Simvastatin 10/80 mg Simvastatin 80mg Discharge Plan Admission Admit Date/Time: 02/12/24 03:39 Primary Reason for Your Visit: Dementia with behavioral disturbances Attending Provider: Jose Price Primary Care Provider: Jennifer Klein Consulting Providers: Alexis Aguila; Shani Brandt Discharge Orders/Prescriptions Prescriptions: New quetiapine 25 mg Tablet 12.5 mg PO BID Qty: 60 0RF Rx Instructions: 1/2-1 twice a day buspirone 5 mg Tablet 10 mg PO BID Qty: 60 0RF escitalopram oxalate 10 mg Tablet 10 mg PO DAILY Qty: 30 0RF potassium chloride 10 mEq tablet extended release 20 meq PO DAILY Qty: 60 0RF Continued aspirin 81 MG tablet,delayed release (DR/EC) 81 mg PO DAILY@0800 acetaminophen 500 mg Tablet 1,000 mg PO TID PRN (Reason: Pain 1-10 Or Fever) Qty: 0 0RF Discontinued mirtazapine 15 mg tablet 7.5 mg PO QDAY escitalopram oxalate [Lexapro] 5 mg tablet 5 mg PO DAILY Qty: 90 3RF No Action clopidogrel [Plavix] 75 mg tablet 75 mg PO DAILY Qty: 90 3RF atorvastatin 20 mg tablet 20 mg PO DAILY Qty: 90 3RF fludrocortisone 0.1 mg tablet 0.1 mg PO BREAKFAST Qty: 90 1RF midodrine 5 mg tablet 10 mg PO TIDCM Qty: 180 3RF Referrals / Follow Up: Jennifer Klein MD [Primary Care Provider] - 02/27/24 11:30 am Disposition Disposition (needs filled in before D/C Order can be placed): Home Health Service Charges/Coding Visit Charges Inpatient E&M: 66371 Disch Hosp >30min
--- NOTE | 2024-02-14 15:53 | CHAPLAIN ---
Type of Pastoral Visit _x__ Initial Visit ___ Follow-up Visit ___ On-call Visit ___ General Patient Visit ___ Spiritual Assessment ___ Family Conference ___ Bereavement ___ Rapid Response ___ Code Blue ___ Other (describe below) Pastoral Care Referral From ___ Patient _x__ Family ___ Nurse ___ Physician ___ Laborer Cheesemaking ___ Software Applications Designer ___ Other (describe below) Sacrament/Intervention _x__ Active listening ___ Anointing ___ Catholic ___ Bereavement ___ Communion ___ Yojana exploration ___ ___ Life review _x__ Prayer ___ Reconciliation ___ Sacrament of Sick _x__ Supportive presence ___ Wedding ___ Other (describe below) Pastoral Comments patient has been seen numerous times in the past and the daughter is very welcoming and asks this automobile relocation engineer to sit and be with her mother; daughter leaves the room to talk with the medical team; sitter is also in the room; pt is very engaged in a discussion although she is not appropriate in much of her conversation and she is focused on things that are not evident or visual in the room; lots of time given to let the patient talk, time to laugh with her on her humor, encouraging her to follow the rules for better days ahead; pt welcomes prayer with enthusiasm; sat with patient as preparations are being made by daughter and by staff for her discharge
== END 2024-02-14 14:42 | disposition home health service (06) ==
LOC: ED 02:57 → MS3 07:15
PROVIDERS: Admitting Provider Hospitalist; Emergency Provider Emergency Medicine; PCP Internal Medicine; Visit Provider Internal Medicine
DX: F03.918 Unspecified dementia, unspecified severity, with other behavioral disturbance (principal); J44.89 Other specified chronic obstructive pulmonary disease; E87.6 Hypokalemia; R62.7 Adult failure to thrive; R53.81 Other malaise; Z87.891 Personal history of nicotine dependence; Z79.02 Long term (current) use of antithrombotics/antiplatelets; F41.9 Anxiety disorder, unspecified; N39.0 Urinary tract infection, site not specified; B96.4 Proteus (mirabilis) (morganii) as the cause of diseases classified elsewhere; E78.5 Hyperlipidemia, unspecified; Z79.899 Other long term (current) drug therapy; D50.9 Iron deficiency anemia, unspecified; F32.A Depression, unspecified; K21.9 Gastro-esophageal reflux disease without esophagitis; R91.8 Other nonspecific abnormal finding of lung field; Z23 Encounter for immunization
CPT/HCPCS: 36415; 70450; 71046; 80048; 80053; 81001; 82607; 82728; 82746; 83540; 83550; 83735; 84100; 84443; 84484; 85025; 85027; 90662; 93005; 96365; 96366; 96372; 99221; 99285; A4216; G0378

== ENCOUNTER → 2024-03-15 | Outpatient (CLI) | payer MEDICARE, SELFPAY ==
[2024-03-15 09:48] LABS: Mucous, Urine 0 SEEN /hpf (<or=2+); Squamous Epithelial Cells - UA 0 SEEN /hpf (5-10)
[2024-03-15 12:14] LABS: Color, Urine Yellow (Yellow); Glucose, Dipstick Normal (Normal); Ketone-Dipstick Negative (Negative); Leukocyte Esterase-Dipstick Negative /ul (Negative); Nitrite-Dipstick Positive (Negative); Occult Blood-Urine 10 /ul (Negative); Protein-Dipstick 15 mg/dl (Negative); Specific Gravity, Urine 1.025 (1.002-1.030); Urine Bilirubin Dipstick Negative (Negative); Urine Clarity Sl. Cloudy (Clear); Urine Urobilinogen Normal (Normal)
[2024-03-15 13:02] LABS: Bacteria 4+ /hpf (None Seen)
[2024-03-15 13:03] LABS: Calcium Oxalate Crystals Ur 2+ /hpf (<or=2+); Red Blood Cells-Urine 0-5 SEEN /hpf (0-5); White Blood Cells 0-5 SEEN /hpf (0-5)
[2024-03-15 13:04] LABS: Hyaline Cast 0-5 SEEN /lpf (0-5)
== END | disposition home or self-care (01) ==
LOC: LABSPEC 09:47
PROVIDERS: PCP Internal Medicine; Referring Provider Internal Medicine; Visit Provider Internal Medicine
DX: N39.0 Urinary tract infection, site not specified (principal)
CPT/HCPCS: 81001

== ENCOUNTER → 2024-04-10 | Outpatient (CLI) | payer MEDICARE, SELFPAY ==
--- NOTE | 2024-04-10 16:40 | RAD_ITS ---
PROCEDURE: CHEST PA AND LATERAL REASON FOR EXAM: Thoracic back pain. TECHNIQUE: Frontal and lateral views of the chest. COMPARISON: 02/12/2024. Prior CT thorax dated 01/08/2024 FINDINGS: Mild hyperinflation. Nodular density within the right lung apex, medially corresponds to previously seen spiculated mass on CT examination dated 01/08/2024, relatively stable, given differences in technique. No new focal airspa ce consolidation, pneumothorax or pleural effusion is seen. Remaining lung markings otherwise appears clear. Heart si ze is within normal limits. Mild tortuosity involving the thoracic aorta. The osseous thorax appears intact. Surgical clips overlie the GE junction. RAD/Chest PA and Lateral IMPRESSION: 1. Nodular density within the right lung apex, medially, corresponds to previou sly seen spiculated mass on CT thorax dated 01/08/2024, relatively stable, given differences in technique. 2. No new focal airspace consolidation is identified. 3. Additional findings, as detailed above. [facility]
--- NOTE | 2024-04-10 16:55 | RAD_ITS ---
PROCEDURE: THORACIC SPINE 2 VIEWS REASON FOR EXAM: Thoracic back pain. TECHNIQUE: AP, lateral and swimmer's views of the thoracic spine. COMPARISON: CT thorax dated 01/08/2024 FINDINGS: On the swimmer's view, the cervicothoracic junction is somewhat obscured secondary to overlying osseo us structures. 12 rib-bearing thoracic vertebral levels. Chronic appearing compression deformity involving the L1 vert ebral level. Query mild compression deformity involving the T7 vertebral level, with some height loss noted anteriorly. No a dditional thoracic spine fractures or dislocations are identified. Remaining visualized osseous structures appear intact. In tervertebral disc spaces appear relatively stable. Overlying soft tissues appear intact. RAD/Thoracic Spine 2 Views IMPRESSION: 1. Query mild compression deformity involving the T7 vertebral body, with some height loss anteriorly. Correlate for point tenderness. 2. Chronic appearing compression deformity involving the L1 vertebral level Reading Location: [facility]
== END | disposition home or self-care (01) ==
PROVIDERS: PCP Internal Medicine; Referring Provider Internal Medicine; Visit Provider Internal Medicine
DX: M54.6 Pain in thoracic spine (principal)
CPT/HCPCS: 71046; 72070

== ENCOUNTER 2024-05-06 14:18 | Emergency (ER) | payer MEDICARE, SELFPAY ==
[2024-05-06 14:21] VITALS: BP 139/81; PULSE 73; RESP 18; TEMP 36.2; O2SAT 96; BMI 17.4
--- NOTE | 2024-05-06 14:31 | CT_ITS ---
PROCEDURE: ABDOMEN/PELVIS W IV CONT ONLY REASON FOR EXAM: Generalized pain, constipation TECHNIQUE: Abdomen and pelvis CT with intravenous contrast. COMPARISON: 07/01/20 FINDINGS: Lung bases: Heart is enlarged. Liver: Fatty infiltration. Moderate intrahepatic and severe extrahepatic biliary dilatation common bile duct measures 3.0 cm. Gallbladder: Surgically absent. Spleen: Normal size. Pancreas: Normal size without evidence of mass surrounding inflammation or ductal dilation. Adrenals: Unremarkable. Kidneys: Normal renal sizes. No hydronephrosis. Bladder: Unremarkable. Reproductive Organs: Prior hysterectomy. Adnexal regions are unremarkable.34 Bowel: Significant amount of stool noted throughout the colon.. No bowel obstruction. Appendix: Normal. Lymph nodes: No suspicious lymph node enlargement. Vasculature: Mild diffuse atherosclerotic calcifications are noted. Peritoneum / Retroperitoneum: No ascites. No free air. Bones: Compression fracture of T12. Moderate degenerative changes throughout the lumbar spine CT/Abdomen/Pelvis W IV Cont ONLY IMPRESSION: 1. Significant amount of stool noted throughout the colon. Correlate with con stipation. 2. Moderate intrahepatic and severe extrahepatic dilatation, which is out of r alka for expected dilatation status post cholecystectomy. This is unchanged from prior CT scan. 3. Cardiomegaly 4. Hepatic steatosis 5. T12 compression fracture One or more dose reduction techniques were used (e.g., Automated exposure contr ol, adjustment of the mA and/or kV according to patient size, use of iterative reconstruction technique). [facility]
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
[2024-05-06] MEDS: Morphine 2 MG/ML Syringe IV (14:57)
[2024-05-06] MEDS: 0.9% Normal Saline (1000mL) 1,000 ML 999 ML IV (14:57)
[2024-05-06] MEDS: Ondansetron 4 MG/2 ML Vial IV (14:57)
[2024-05-06 15:00] LABS: Squamous Epithelial Cells - UA 0 SEEN /hpf (5-10)
[2024-05-06 15:01] LABS: Absolute Lymphocyte Count 1.54 X10^3/uL (0.83-4.51); Absolute Neutrophil Count 4.9 X10^3/uL (2.0-7.7); Basophil# 0.04 X10^3/uL; Basophil% 0.5 % (0-1); Eosinophil# 0.08 X10^3/uL; Eosinophils% 1.1 % (0-5); Hematocrit 33.4 % (37-47); Hemoglobin 10.6 g/dL (12.0-15.0); Lymphocyte # 1.54 X10^3/ul (0.83-4.51); Lymphocyte % 20.7 % (19-41); Mean Corp Hgb Conc 31.7 g/dL (32-36); Mean Corpuscular Hgb 28.6 pg (27.0-32.0); Mean Corpuscular Volume 90.3 fL (81-99); Mean Platelet Vol. 9.5 fl (6.2-12.0); Monocyte# 0.82 X10^3/uL; NRBC Flagged by Analyzer 0 % (0-5); Neutrophil # 4.93 X10^3/uL (2.7-7.7); Neutrophil % 66.3 % (47-70); Platelet Count 359 K/mm3 (150-450); RBC Distribution Width CV 13.8 % (11.6-14.6); RBC Distribution Width SD 45.6 fl (35.1-43.9); White Blood Count 7.4 K/mm3 (4.4-11.0)
[2024-05-06 15:10] LABS: Color, Urine Yellow (Yellow); Glucose, Dipstick Normal (Normal); Ketone-Dipstick Negative (Negative); Leukocyte Esterase-Dipstick 25 /ul (Negative); Nitrite-Dipstick Positive (Negative); Occult Blood-Urine 10 /ul (Negative); Protein-Dipstick 15 mg/dl (Negative); Specific Gravity, Urine 1.025 (1.002-1.030); Urine Bilirubin Dipstick Negative (Negative); Urine Clarity Clear (Clear); Urine Urobilinogen Normal (Normal)
[2024-05-06 15:26] LABS: AST(SGOT) 25 U/L (15-37); Alanine Aminotransfer ALT/SGPT 21 U/L (13-56); Albumin, Serum 3.7 g/dL (3.2-5.0); Alkaline Phosphatase 243 U/L (45-117); Anion Gap 5 (5-15); BUN 21 mg/dL (7-18); BUN/Creat Ratio 28.4 RATIO (10-20); Calcium,Total 9.8 mg/dL (8.5-10.1); Chloride 108 mmol/L (98-107); Creatinine, Serum 0.74 mg/dL (0.55-1.02); EST Glomerular Filtration Rate 79 mL/min (>60); Est Glom Filt Rate - Afr Amer 96 mL/min (>60); Estimated Creatinine Clearance 34.55 ml/min; Globulin 3.8 g/dL (2.2-4.2); Glucose 103 mg/dL (74-106); Lipase 15 U/L (73-393); Potassium 4.1 mmol/L (3.5-5.1); Protein, Total 7.5 g/dL (6.4-8.2); Sodium Level 139 mmol/L (136-145)
[2024-05-06 15:40] LABS: Bacteria 3+ /hpf (None Seen); Mucous, Urine RARE /hpf (<or=2+); Red Blood Cells-Urine 0 SEEN /hpf (0-5); White Blood Cells 0-5 SEEN /hpf (0-5)
[2024-05-06 16:19] VITALS: BP 146/74; PULSE 77; RESP 16; O2SAT 97
--- NOTE | 2024-05-06 18:43 | ED.RN ---
pt wandering around room, throwing objects. daughter states that pt gets this way as the night progresses. pt demanding to leave, refusing miralax. daughter states that she has some at home and would just give her some when they get home. Pt attempting to sit on bed side commode. dripping bright red blood from rectum. Denies any pain, minimal amount. Spoke with Erin ARCHER, stated most likely from enema causing trauma to site. Daughter made aware. Daughter stated she just wanted to get her mother home to prevent her from acting out more. Pt continues to throw objects, demanding to leave department. This RN assisted in dressing pt, and escorted out of department, and given to daughter after IV removed and D/C paperwork given.
== END 2024-05-06 18:05 | disposition home or self-care (01) ==
PROVIDERS: Physician Assistant; Emergency Provider Emergency Medicine; PCP Internal Medicine; Visit Provider Emergency Medicine
DX: R10.9 Unspecified abdominal pain (principal); C34.91 Malignant neoplasm of unspecified part of right bronchus or lung; F03.90 Unspecified dementia, unspecified severity, without behavioral disturbance, psychotic disturbance, mood disturbance, and anxiety; J44.89 Other specified chronic obstructive pulmonary disease; K59.00 Constipation, unspecified; Z87.891 Personal history of nicotine dependence; K52.9 Noninfective gastroenteritis and colitis, unspecified; Z86.16 Personal history of COVID-19; Z86.73 Personal history of transient ischemic attack (TIA), and cerebral infarction without residual deficits; Z90.49 Acquired absence of other specified parts of digestive tract; Z90.710 Acquired absence of both cervix and uterus
CPT/HCPCS: 74177; 80053; 81001; 83690; 85025; 87086; 87088; 87186; 96361; 96374; 96375; 99285; P9612; Q9967; A4216; J2405

== ENCOUNTER 2024-05-10 05:09 | Inpatient (IN) | payer MEDICARE, SELFPAY ==
[2024-05-10] VITALS (9 sets, daily range): BP systolic 112–144; BP diastolic 67–95; PULSE 70–101; RESP 14–19; TEMP 36.7–37.2; O2SAT 94–100; BMI 19.6; BMI 16.7
--- NOTE | 2024-05-10 05:27 | RAD_ITS ---
PROCEDURE: CHEST PA AND LATERAL REASON FOR EXAM: Chest pain. TECHNIQUE: Single frontal image including the chest and abdomen. COMPARISON: Chest x-ray dated 04/10/2024. FINDINGS: Right upper lobe mass remains, highly worrisome for malignancy. Probably infiltrates at the lung bases, right greater than left. There is no pneumothorax. No acute osseous abnormalities identified. Surface osteopenia remains. Vertebral compression deformities are seen within the upper lumbar spine RAD/Chest PA and Lateral IMPRESSION: Right upper lobe mass highly worrisome for malignancy. Probable increasing bibasilar airspace opacities, right greater than left. Whi le this may be due to technique, progressive pathology can not be ruled out. Patient may benefit from short-term follow-up CT. Reading Location: [id number]
[2024-05-10 05:46] LABS: Absolute Lymphocyte Count 2.09 X10^3/uL (0.83-4.51); Absolute Neutrophil Count 5.1 X10^3/uL (2.0-7.7); Basophil# 0.04 X10^3/uL; Basophil% 0.5 % (0-1); Eosinophil# 0.15 X10^3/uL; Eosinophils% 1.8 % (0-5); Hematocrit 33.1 % (37-47); Hemoglobin 10.7 g/dL (12.0-15.0); Lymphocyte # 2.09 X10^3/ul (0.83-4.51); Lymphocyte % 25.1 % (19-41); Mean Corp Hgb Conc 32.3 g/dL (32-36); Mean Corpuscular Hgb 29.2 pg (27.0-32.0); Mean Corpuscular Volume 90.4 fL (81-99); Mean Platelet Vol. 9.4 fl (6.2-12.0); Monocyte# 0.97 X10^3/uL; Monocyte% 11.6 % (0-10); NRBC Flagged by Analyzer 0 % (0-5); Neutrophil # 5.07 X10^3/uL (2.7-7.7); Neutrophil % 60.8 % (47-70); Platelet Count 391 K/mm3 (150-450); RBC Distribution Width CV 13.6 % (11.6-14.6); RBC Distribution Width SD 45.2 fl (35.1-43.9); Red Blood Count 3.66 M/mm3 (4.2-5.4); White Blood Count 8.3 K/mm3 (4.4-11.0)
[2024-05-10 05:58] LABS: Partial Thromboplast Time 20.9 Seconds (24.1-36.2); Prothrombin Time (Protime)PT. 12.8 SECONDS (11.7-14.9)
[2024-05-10 06:16] LABS: Anion Gap 13 (5-15); BUN 16 mg/dL (4-19); BUN/Creat Ratio 22.3 RATIO (10-20); Calcium 9.6 mg/dL (7.6-11.0); Carbon Dioxide 23.3 mmol/L (22.0-29.0); Chloride 104 mmol/L (96-108); Creatinine, Serum 0.7 mg/dL (0.6-1.0); EST Glomerular Filtration Rate 82 (>60); Estimated Creatinine Clearance 38.89 ml/min; Glucose 92 mg/dL (70-99); Potassium 3.8 mmol/L (3.3-5.1); Sodium Level 140 mmol/L (133-145)
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
[2024-05-10] MEDS: Potassium Chloride Oral Tablet 20 MEQ PO (11:04)
[2024-05-10] MEDS: QUEtiapine 25 MG Tablet 12.5 MG PO (11:04)
[2024-05-10] MEDS: Midodrine HCl 5 MG Tablet 10 MG PO ×2 (11:08→16:46)
[2024-05-10] MEDS: Acetaminophen 500 MG Tablet 1000 MG PO (11:10)
[2024-05-10 11:13] LABS: Hematocrit 30.2 % (37-47); Hemoglobin 9.7 g/dL (12.0-15.0)
[2024-05-10] MEDS: Morphine 2 MG/ML Syringe IV (13:12)
[2024-05-10] MEDS: Pantoprazole Sodium 40 MG in 0.9% Normal Saline (100mL MB+) 100 ML 330 MG IV ×2 (13:12→22:33)
[2024-05-10] MEDS: Bisacodyl 5 MG Tablet 20 MG PO (14:16)
[2024-05-10] MEDS: Polyethylene Glycol 3350 BOWEL PREP PO (14:27)
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
[2024-05-10 16:42] LABS: Hematocrit 30.8 % (37-47); Hemoglobin 9.9 g/dL (12.0-15.0)
[2024-05-10] MEDS: Lorazepam 2 MG/ML WCH Syringe 1 MG IV (16:49)
--- NOTE | 2024-05-10 16:55 | CT_ITS ---
PROCEDURE: CTA ABD/PELVIS W/WO CONTRAST REASON FOR EXAM: Pain, bleeding TECHNIQUE: Multiple contiguous axial images through the abdomen and pelvis were obtained after the administration of intravenous contrast. Two-dimensional and three-dimensional MIP coronal and sagittal reformatted images were reconstructed. Low-dose imaging technique was utilized. COMPARISON: 05/06/2024 FINDINGS: Lung bases are clear. Liver, spleen, pancreas and adrenal glands are within normal limits. Unchanged marked dilation of the intra and extrahepatic biliary ducts. Similar-appearing mild dilation of the pancreatic duct. Gallbladder is surgically absent. Kidneys enhance symmetrically. No suspicious renal mass, calculi or hydronephrosis. Urinary bladder is decompressed. Multiple distended fluid-filled small bowel loops throughout the pelvis. Mild fluid throughout the colon also noted. Multifocal areas of postsurgical change of the bowel and at the gastroesophageal junction. No bowel obstruction. Small areas of hyperdensity within a small bowel loop within the posterior pelvis (axial image 129/174, coronal image 64/86). No focal mesenteric inflammation. No pelvic free fluid. No free air. Severely calcified nonaneurysmal abdominal aorta. No evidence of dissection or branch vessel occlusion. No bulky adenopathy. Superficial soft tissues are within normal limits. Several marrow replacing lesions within the sacrum and posterior left iliac bone, largest at S1 measuring up to 4 cm. Chronic compression deformities of the lower thoracic and upper lumbar spine. Degenerative changes of the spine also noted. Right hip prosthesis. CT/CTA Abd/Pelvis W/WO Contrast IMPRESSION: Limited assessment for bleed without precontrast imaging. 1. Ill-defined area of hyperdensity within a small bowel loop in the central pe lvis as above. Can not exclude small bowel GI bleed. Consider further assessment width tagged RBC scan. 2. Multiple distended fluid-filled bowel loops throughout the abdomen and fluid throughout the colon. Findings may relate to underlying enteritis. No obstruction. 3. Several marrow replacing lesions within the sacrum and left hemipelvis. Met astatic disease and myeloma are both considered. Please correlate. 4. Unchanged marked dilation of the biliary ducts status post cholecystectomy. One or more dose reduction techniques were used (e.g., Automated exposure contr ol, adjustment of the mA and/or kV according to patient size, use of iterative reconstruction technique). Reading Location: [facility]
[2024-05-10 21:43] LABS: Hematocrit 29.6 % (37-47); Hemoglobin 9.6 g/dL (12.0-15.0)
[2024-05-10] MEDS: RisperiDONE 0.5 MG Tablet PO (22:35)
[2024-05-10] MEDS: QUEtiapine 25 MG Tablet PO (22:35)
[2024-05-10] MEDS: Atorvastatin Calcium 20 MG Tablet PO (22:35)
[2024-05-11] VITALS (12 sets, daily range): BP systolic 93–134; BP diastolic 67–97; PULSE 77–110; RESP 16–18; TEMP 36.4–36.8; O2SAT 94–100; BMI 16.9
[2024-05-11 04:25] LABS: Hematocrit 29.4 % (37-47); Hemoglobin 9.4 g/dL (12.0-15.0)
--- NOTE | 2024-05-11 07:37 | PN.HOSP_ITS ---
Reason for Visit Reason for Visit: Bright red blood per rectum Subjective Subjective Bleeding stopped overnight. Did not tolerate prep. Plan is for colonoscopy today. Patient with intermittent confusion and agitation which is to be expected with her baseline dementia. Remains alert and interactive. Objective Data Objective Data Vital Signs: Vital Signs Temp Pulse Resp BP Pulse Ox O2 Del Method 98.2 F 89 16 133/70 H 94 Room Air 05/11/24 04:34 05/11/24 04:34 05/11/24 04:34 05/11/24 04:34 05/11/24 04:34 05/11/24 04:34 Oxygen Delivery Method Room Air Weight: 41.9 kg Body Mass Index (BMI) 16.9 Intake & Output: Intake and Output for Last 24 Hours 05/09/24 05/10/24 05/11/24 23:59 23:59 23:59 Intake Total 570 / 570 Balance 570 / 570 Lab / Micro Data 05/11/24 07:49 05/11/24 07:49 Labs: Laboratory Results - last 24 hr 05/10/24 10:50: Hgb 9.7 L, Hct 30.2 L 05/10/24 16:23: Hgb 9.9 L, Hct 30.8 L 05/10/24 21:34: Hgb 9.6 L, Hct 29.6 L 05/11/24 04:15: Hgb 9.4 L, Hct 29.4 L Radiography Diagnostic Testing: Radiology Impression Abdomen/Pelvis CTA 05/10/24 16:55 IMPRESSION: Limited assessment for bleed without precontrast imaging. 1. Ill-defined area of hyperdensity within a small bowel loop in the central pelvis as above. Can not exclude small bowel GI bleed. Consider further assessment width tagged RBC scan. 2. Multiple distended fluid-filled bowel loops throughout the abdomen and fluid throughout the colon. Findings may relate to underlying enteritis. No obstruction. 3. Several marrow replacing lesions within the sacrum and left hemipelvis. Metastatic disease and myeloma are both considered. Please correlate. 4. Unchanged marked dilation of the biliary ducts status post cholecystectomy. One or more dose reduction techniques were used (e.g., Automated exposure control, adjustment of the mA and/or kV according to patient size, use of iterative reconstruction technique). Reading Location: [facility] Physical Exam Const alert and no apparent distress; Negative for oriented x3, average body habitus, healthy appearing or well nourished Constitutional Narrative: Elderly, white female, lying in bed with sitter at bedside, currently in preop area for endoscopy, appears comfortable but remains impulsive and confused, pleasant interaction General Appearance: cooperative Orientation / Consciousness: confused HEENT normocephalic and head/scalp atraumatic HEENT Narrative: Mallampati 2, no thrush, dentures in place Resp normal respiratory effort, no retractions, no use of accessory muscles and clear to auscultation bilaterally Resp Narrative: Diminished but clear Auscultation: Negative for rales, rhonchi or wheezes Cardio regular rate, regular rhythm, S1 normal heart sound, S2 normal heart sound, no murmurs, no rub, no gallops and no clicks GI normal to inspection, nondistended, normoactive bowel sounds, soft to palpation and non-tender GI Narrative: Scaphoid abdomen Extremity no clubbing, cyanosis or edema Extremity Narrative: Decreased lean muscle mass Neuro moves all extremities and no focal motor deficits Neuro Narrative: Strength is good Sensorium / Orientation: awake, alert and oriented to person; Negative for oriented to place or oriented to time Speech: speech normal Psych affect normal Psych Narrative: Pleasantly confused Assessment & Plan Assessment/Plan (1) BRBPR (bright red blood per rectum): (2) Anemia: PLAN: Plan Bright red blood per rectum -Hemoglobin initially stable on presentation -Plan was to cycle every 6 hours however she had further bright red blood per rectum and hemoglobin dropped about a gram -CT of the abdomen pelvis was performed and showed an ill-defined area of hyperdensity in the small bowel loop of the central pelvis that was concerning for GI bleed, multiple distended fluid-filled bowel loops in the entire abdomen the colon concerning for enteritis and severe marrow replacing lesions in the sacrum and heavy pelvis consistent with metastatic disease -Protonix 40 mg IV twice daily however suspect this is lower GI bleed -Colonoscopy pending -Hemoglobin is stable lysed in the 9-10 range after initial drop -Hold aspirin and Plavix for now -Consult to gastroenterology-Dr. Monteiro notified Acute on chronic anemia -Baseline hemoglobin appears to run between 10 and 11 -Bleeding has seemed to cease and hemoglobin is stable in the 9-10 range currently -Continue every 6 hour hemoglobins -Transfuse for precipitous drop or hemoglobin less than 7 Right upper lobe lung mass -Appears to be worsening -Consistent with malignancy but family and patient have declined workup or treatment -Recommend ongoing outpatient follow-up with no acute intervention needed at this time -Overall would highly recommend hospice be considered -Patient's family would like her to remain full code at this time Dementia-suspect vascular with behavioral issues and agitation -Have had to use a couple doses of needed of Ativan to get procedures performed -Patient does have behavioral issues -Continue low-dose nightly risperidone -Family is aware that her confusion will probably remain worse while hospitalized History of stroke -Aspirin/Plavix on hold Chronic hypotension -Continue home midodrine -Continue home fludrocortisone -Watch for worsening hypotension with risperidone--> currently stable despite use of risperidone History of DVT -Not currently on any anticoagulation Hyperlipidemia -Continue home statin GERD -Patient with previous history of her not currently on medication -IV PPI in place for now Severe malnutrition -Dietitian is following -Start supplements once able to eat History of tobacco abuse -Remote -Recommend ongoing cessation DVT prophylaxis -SCDs -Chemoprophylaxis is contraindicated due to bleeding CODE STATUS -Full code Charges/Coding Visit Charges Inpatient E&M: 56342 Subs Hosp L2
[2024-05-11 08:58] LABS: Absolute Neutrophil Count 3.8 X10^3/uL (2.0-7.7); Basophil# 0.04 X10^3/uL; Basophil% 0.6 % (0-1); Eosinophil# 0.14 X10^3/uL; Eosinophils% 2.1 % (0-5); Hematocrit 30.9 % (37-47); Hemoglobin 9.8 g/dL (12.0-15.0); Lymphocyte % 28.9 % (19-41); Mean Corp Hgb Conc 31.7 g/dL (32-36); Mean Corpuscular Hgb 28.6 pg (27.0-32.0); Mean Corpuscular Volume 90.1 fL (81-99); Mean Platelet Vol. 9.3 fl (6.2-12.0); Monocyte# 0.71 X10^3/uL; Monocyte% 10.8 % (0-10); NRBC Flagged by Analyzer 0 % (0-5); Neutrophil # 3.77 X10^3/uL (2.7-7.7); Neutrophil % 57.4 % (47-70); Platelet Count 374 K/mm3 (150-450); RBC Distribution Width CV 13.8 % (11.6-14.6); RBC Distribution Width SD 45.1 fl (35.1-43.9); Red Blood Count 3.43 M/mm3 (4.2-5.4); White Blood Count 6.6 K/mm3 (4.4-11.0)
[2024-05-11 10:22] LABS: ALB/GLOB Ratio 1.5 RATIO (0.9-2.4); AST(SGOT) 27 U/L (<=31); Alanine Aminotransfer ALT/SGPT 12 U/L (<=34); Albumin, Serum 3.9 g/dL (3.4-4.8); Alkaline Phosphatase 242 U/L (35-104); Anion Gap 11 (5-15); BUN 10 mg/dL (4-19); BUN/Creat Ratio 15.9 RATIO (10-20); Calcium 9.3 mg/dL (7.6-11.0); Carbon Dioxide 23.4 mmol/L (22.0-29.0); Chloride 105 mmol/L (96-108); Creatinine, Serum 0.65 mg/dL (0.70-1.20); EST Glomerular Filtration Rate 86 (>60); Estimated Creatinine Clearance 33.39 ml/min; Globulin 2.6 g/dL (2.2-4.2); Glucose 89 mg/dL (70-99); Magnesium 1.9 mg/dL (1.5-2.2); Phosphorus 3.6 mg/dL (2.7-4.5); Potassium 3.8 mmol/L (3.3-5.1); Protein, Total 6.5 g/dL (5.9-8.4); Sodium Level 140 mmol/L (133-145); Total Bilirubin 0.23 mg/dL (0.00-1.30)
[2024-05-11] MEDS: Pantoprazole Sodium 40 MG in 0.9% Normal Saline (100mL MB+) 100 ML 330 MG IV (11:14)
[2024-05-11] MEDS: 0.9% Saline Lock 10 ML Syringe IV (13:16)
[2024-05-11] MEDS: Lorazepam 2 MG/ML WCH Syringe 0.5 MG IV (13:16)
--- NOTE | 2024-05-11 13:50 | CASEMGMT ---
CHANTELL ROSS Assessment: CHANTELL ROSS to room to complete assessment. Pt very confused, sitter @ bedside. Pt's daughter, Joi, in room w/pt and she provided the following information. Care providers, pharmacy, and demographics verified/updated. PCP: Dr Klein Specialists: none Preferred Pharmacy: [facility] Retail Insurance: [place] [facility] Prescription Benefit: yes LNOK: Joi Mckeon, dtr; Silvia Cisneros, dtr; son Living Arrangements: Pt's daughter, Joi, and son, take care of pt 24/7. Joi stay w/pt 7AM to 7 PM, and son stays w/her 7 PM to 7 AM. They provide all care, manage her medications, and do all groceries, meals and laundry. Transportation: Pt dtr Joi provides transportation. DME: pt has a walker, but does not use. HHC/SNF: Pt has been to [facility] in the past and has had [facility] in the past. Discussed discharge planning. Joi states they wish to take pt home and continue to provide 24/7 care, as they have been. Pt states her (pt's son-in-law) is available to help at times, if needed. Joi declines wanting list of Private-Duty caregiver/aide list or other resources. She states other have suggested [facility] or [id number], but they are not interested in this either. She states, She raised us and we're going to take care of her now. Plan: Home w/family support Charisse MEDINA RN, CM
--- NOTE | 2024-05-11 13:51 | CHAPLAIN ---
Type of Pastoral Visit _x__ Initial Visit ___ Follow-up Visit ___ On-call Visit ___ General Patient Visit ___ Spiritual Assessment ___ Family Conference ___ Bereavement ___ Rapid Response ___ Code Blue ___ Other (describe below) Pastoral Care Referral From ___ Patient _x__ Family ___ Nurse ___ Physician ___ Investigation Officer ___ Punch Machine Operator ___ Other (describe below) Sacrament/Intervention _x__ Active listening ___ Anointing ___ Hinduism ___ Bereavement ___ Communion _x__ Yojana exploration ___ ___ Life review _x__ Prayer ___ Reconciliation ___ Sacrament of Sick _x__ Supportive presence ___ Wedding ___ Other (describe below) Pastoral Comments patient has been seen before on many previous admissions; daughter and sitter are in the room; pt is greatly confused but able to dialog in topics that she wants to discuss; this hot press operator follows her lead on conversation; pt does want a prayer and then she also prays for this hot press operator in loud voice and with passionate tone; pt has to be reminded often to sit still and attempts made to help her refocus are continual; pt is pleasant and yet determined to do what she wants; pt is kept safe by sitter and this hot press operator; CM came into room and this hot press operator left to continue other visits
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
--- NOTE | 2024-05-11 16:38 | PCM.PN.BLA ---
Progress Note Patient was noted to have multiple episodes of lower GI bleeding today. Physical Exam Const alert, oriented x3, no apparent distress and healthy appearing General Appearance: cooperative GI normal to inspection, nondistended, normoactive bowel sounds, soft to palpation, non-tender and non-distended Percussion: normal to percussion Rectal Exam: deferred Assessment & Plan Assessment/Plan (1) BRBPR (bright red blood per rectum): (2) Anemia: PLAN: Plan 88-year-old with lower GI bleed. She has a history of diverticulitis status subtotal colectomy with primary anastomosis. Bright red blood per rectum -CT of the abdomen pelvis was performed and showed an ill-defined area of hyperdensity in the small bowel loop of the central pelvis that was concerning for GI bleed, multiple distended fluid-filled bowel loops in the entire abdomen the colon concerning for enteritis and severe marrow replacing lesions in the sacrum and heavy pelvis consistent with metastatic disease -She should undergo colonoscopy and possibly upper endoscopy. Patient family was explained alternatives, risk and benefits include not withstanding bleeding, infection, sepsis, perforation, need for return to . She will have an ASA of 3. - Visit Charges Inpatient E&M: 24156 Subs Hosp L3
--- NOTE | 2024-05-11 17:12 | OP.COLON_ITS ---
Patient Name: Esther Boone Procedure Date: 05/11/2024 4:41 PM Date of : 1935 Age: 88 Procedure: Colonoscopy Indications: Hematochezia Providers: Neville Monteiro DO Medicines: Monitored Anesthesia Care Patient Profile: This is an 88 year old female. Refer to note in patient chart for documentation of history and physical. Last Colonoscopy: date unknown. Unable to locate last colonoscopy report. Complications: No immediate complications. Procedure: Pre-Anesthesia Assessment: - Prior to the procedure, a History and Physical was performed, and patient medications and allergies were reviewed. The patient is competent. The risks and benefits of the procedure and the sedation options and risks were discussed with the patient. All questions were answered and informed consent was obtained. Patient identification and proposed procedure were verified by the physician in the pre-procedure area. Mental Status Examination: alert and oriented. Airway Examination: normal oropharyngeal airway and neck mobility. Respiratory Examination: clear to auscultation. CV Examination: normal. Prophylactic Antibiotics: The patient does not require prophylactic antibiotics. Prior Anticoagulants: The patient has taken no anticoagulant or antiplatelet agents. ASA Grade Assessment: III - A patient with severe systemic disease. After reviewing the risks and benefits, the patient was deemed in satisfactory condition to undergo the procedure. The anesthesia plan was to use monitored anesthesia care (MAC). Immediately prior to administration of medications, the patient was re-assessed for adequacy to receive sedatives. The heart rate, respiratory rate, oxygen saturations, blood pressure, adequacy of pulmonary ventilation, and response to care were monitored throughout the procedure. The physical status of the patient was re-assessed after the procedure. After I obtained informed consent, the scope was passed under direct vision. Throughout the procedure, the patient's blood pressure, pulse, and oxygen saturations were monitored continuously. The Colonoscope was introduced through the anus and advanced to the cecum, identified by appendiceal orifice and ileocecal valve. The colonoscopy was performed without difficulty. The patient tolerated the procedure well. The quality of the bowel preparation was adequate. The ileocecal valve, appendiceal orifice, and rectum were photographed. Scope In: 4:55:01 PM Scope Withdrawal Time 0 hours 1 minute 50 seconds Scope Out: 5:06:03 PM Total Procedure Duration Time 0 hours 11 minutes 2 seconds Findings: The perianal and digital rectal examinations were normal. A single (solitary) twelve mm ulcer was found in the rectum. Oozing was present. Stigmata of recent bleeding were present. Coagulation for hemostasis using heater probe was successful. To stop active bleeding, one hemostatic clip was successfully placed. Clip cissp: [employer]. There was no bleeding at the end of the procedure. Multiple small and large-mouthed diverticula were found in the recto-sigmoid colon, sigmoid colon and descending colon. Stool was found in the recto-sigmoid colon, in the sigmoid colon, at the hepatic flexure, in the ascending colon and in the cecum. Impression: - A single (solitary) ulcer in the rectum. Treated with a heater probe. Clip was placed. Clip cissp: [employer]. - Diverticulosis in the recto-sigmoid colon, in the sigmoid colon and in the descending colon. - Stool in the recto-sigmoid colon, in the sigmoid colon, at the hepatic flexure, in the ascending colon and in the cecum. - No specimens collected. Recommendation: - Return patient to [facility] for [facility] care. - Resume regular diet. - Continue present medications. - No repeat colonoscopy due to age. Procedure Code(s): --- Professional --- 74655, Colonoscopy, flexible; with control of bleeding, any method CPT copyright 2021 [employer]. All rights reserved. The codes documented in this report are preliminary and upon director business review may be revised to meet current compliance requirements. Neville Monteiro DO 05/11/2024 5:12:22 PM This report has been signed electronically. Number of Addenda: 0 Note Initiated On: 05/11/2024 4:41 PM
--- NOTE | 2024-05-11 17:13 | OP.CCLET_ITS ---
05/11/2024 Jennifer Klein [facility] [address] [place] [address] Re : Colonoscopy procedure for Esther Boone Dear Dr. Klein This procedure was performed on Saturday, May 11, 2024. My impressions and recommendations are as follows: Impressions : - A single (solitary) ulcer in the rectum. Treated with a heater probe. Clip was placed. 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 - Diverticulosis in the recto-sigmoid colon, in the sigmoid colon and in the descending colon. - Stool in the recto-sigmoid colon, in the sigmoid colon, at the hepatic flexure, in the ascending colon and in the cecum. - No specimens collected. Recommendations : - Return patient to [facility] for ongoing care. - Resume regular diet. - Continue present medications. - No repeat colonoscopy due to age. My findings are described in the full procedure note, which is enclosed. If I can be of further assistance, please feel free to contact me at . Sincerely, Neville Monteiro, 05/11/2024 5:12:22 PM This report has been signed electronically.
[2024-05-11] MEDS: LORazepam 0.5 MG Tablet PO (17:58)
--- NOTE | 2024-05-11 18:35 | PCM.POSTANE2 ---
Anesthesia Postop Eval I Sum Anesthesia Postop Eval I Summary Anesthesia Postop Eval I Summary: Anesthesia Postop Eval I: Assessment Summary Airway patent Spontaneous unlabored respirations Mental status nausea Vomiting Anesthesia Postop Eval I: Fluid Summary Crystalloid volume administer (ml) Colloids volume administered ( ml) Blood Product volume administered (ml) Total IV fluid infused Anesthesia Postop Eval I: Summary Notes Anesthesia Complication Anesthesia Complication Comment: Post-operative progress note Anesthesia: Postop Eval II Evaluation Mental status: Asleep and Confused Pain Level: 0 nausea: No Vomiting: No Complications Anesthesia Complication: No
--- NOTE | 2024-05-11 18:45 | PCM.POST.ANE ---
Anesthesia: Postop Eval I Current Vital Signs Temperature: 97.5 F Pulse Rate: 110 Blood Pressure: 104/77 Respiratory Rate: 16 Pulse Ox: 100 Oxygen Delivery Method: Room Air Assessment Airway patent: Yes Spontaneous unlabored respirations: Yes Mental status: Calm nausea: No Vomiting: No Anesthesia Complication: No Fluid Hydration Crystalloid volume administer (ml): 10 Total IV fluid infused: 10 Progress Note Anesthesia document: Postop Eval 1 completed: Yes
[2024-05-11] MEDS: Atorvastatin Calcium 20 MG Tablet PO (20:16)
[2024-05-11] MEDS: QUEtiapine 25 MG Tablet PO (20:16)
[2024-05-11] MEDS: RisperiDONE 0.5 MG Tablet PO (20:16)
[2024-05-11] MEDS: MELATONIN 3 MG TABLET PO (22:22)
[2024-05-12 04:57] VITALS: BP 117/75; PULSE 109; RESP 18; TEMP 36.6; O2SAT 97
[2024-05-12 06:00] VITALS: BMI 16.9
[2024-05-12 06:34] LABS: Absolute Lymphocyte Count 1.41 X10^3/uL (0.83-4.51); Absolute Neutrophil Count 5.9 X10^3/uL (2.0-7.7); Basophil# 0.03 X10^3/uL; Basophil% 0.4 % (0-1); Eosinophil# 0.13 X10^3/uL; Eosinophils% 1.5 % (0-5); Hematocrit 26.7 % (37-47); Hemoglobin 8.7 g/dL (12.0-15.0); Lymphocyte # 1.41 X10^3/ul (0.83-4.51); Lymphocyte % 16.7 % (19-41); Mean Corp Hgb Conc 32.6 g/dL (32-36); Mean Corpuscular Hgb 28.7 pg (27.0-32.0); Mean Corpuscular Volume 88.1 fL (81-99); Mean Platelet Vol. 9.2 fl (6.2-12.0); Monocyte% 11.8 % (0-10); NRBC Flagged by Analyzer 0 % (0-5); Neutrophil # 5.86 X10^3/uL (2.7-7.7); Neutrophil % 69.4 % (47-70); Platelet Count 359 K/mm3 (150-450); RBC Distribution Width CV 13.5 % (11.6-14.6); RBC Distribution Width SD 43.7 fl (35.1-43.9); Red Blood Count 3.03 M/mm3 (4.2-5.4); White Blood Count 8.5 K/mm3 (4.4-11.0)
[2024-05-12 07:23] LABS: Anion Gap 14 (5-15); BUN 9 mg/dL (4-19); BUN/Creat Ratio 12.2 RATIO (10-20); Calcium 9.6 mg/dL (7.6-11.0); Carbon Dioxide 21.5 mmol/L (22.0-29.0); Chloride 106 mmol/L (96-108); Creatinine, Serum 0.72 mg/dL (0.70-1.20); EST Glomerular Filtration Rate 82 (>60); Estimated Creatinine Clearance 33.23 ml/min; Glucose 99 mg/dL (70-99); Potassium 3.5 mmol/L (3.3-5.1); Sodium Level 141 mmol/L (133-145)
[2024-05-12 08:48] VITALS: BP 122/78; PULSE 94; RESP 16; TEMP 37.1; O2SAT 97
[2024-05-12] MEDS: Midodrine HCl 5 MG Tablet 10 MG PO ×2 (09:07→12:46)
[2024-05-12] MEDS: Potassium Chloride Oral Tablet 20 MEQ PO (09:07)
[2024-05-12] MEDS: QUEtiapine 25 MG Tablet 12.5 MG PO (09:08)
[2024-05-12] MEDS: Fludrocortisone Acetate 0.1 MG Tablet PO (09:08)
[2024-05-12 12:52] VITALS: BP 97/54; PULSE 94; RESP 16; TEMP 36.8; O2SAT 97
[2024-05-12 12:54] LABS: Hemoglobin 9.4 g/dL (12.0-15.0)
--- NOTE | 2024-05-12 12:56 | PCM.DC.SUM ---
Providers Date of Admission: 05/10/24 Date of Discharge: 05/12/24 Primary Care Physician: Dr. Jennifer Klein MD Consultations 05/10/24 13:18 Consult: Gastroenterology Routine Consulting Provider: [facility] Reason for Consult: LGIB EMERGENT Consult: No MD Notified: Yes Date Notified: 05/10/24 Time Notified: 13:19 Method of Notification: Verbal Reason For Visit: LGIB Diagnosis Discharge Diagnosis (1) BRBPR (bright red blood per rectum): Status: Acute Code(s): K62.5 - Hemorrhage of anus and rectum (2) Anemia: Status: Acute Code(s): D64.9 - Anemia, unspecified Plan Spoke order this to Medications at Discharge Home Medications aspirin 81 mg tablet,delayed release 81 mg PO DAILY@0800 [facility] 07/01/20 Held on 05/12/24. Instructions: Resume on 05/20/24. acetaminophen 500 mg tablet 1,000 mg (2 x 500 mg) PO TID PRN Pain 1-10 Or Fever #0 tabs 01/05/24 atorvastatin 20 mg tablet 20 mg PO DAILY #90 tabs 02/14/24 clopidogrel 75 mg tablet (Plavix) 75 mg PO DAILY BLOOD THINNER #90 tabs 02/14/24 Held on 05/12/24. Instructions: Resume on 05/20/24. fludrocortisone 0.1 mg tablet 0.1 mg PO BREAKFAST #90 tabs 02/14/24 midodrine 5 mg tablet 10 mg (2 x 5 mg) PO TIDCM #180 tabs 02/14/24 escitalopram oxalate 10 mg tablet 10 mg PO DAILY #90 tabs 03/12/24 Held on 05/12/24. Instructions: Until instructed to restart potassium chloride 10 mEq tablet,extended release 20 meq (2 x 10 mEq) PO DAILY #180 tabs 04/10/24 quetiapine 25 mg tablet 25 mg PO QHS #90 tabs 04/10/24 d-mannose 500 mg capsule (AZO D-Mannose) mg PO DAILY 04/23/24 quetiapine 25 mg tablet (Seroquel) 12.5 mg PO DAILY 05/10/24 Hospital Course Operations None Procedures EGD, EKG and - (Chest x-ray/CTA abdomen and pelvis) Summary of Care Provided Minutes Spent on Discharge: 38 Hospital Course: MANFRED HILL, is a 88 F who presented to the emergency department at [facility] on 05/10/2024 with bright red blood per rectum. She presented with her son and daughter. Evidently she got up she is a bathroom and was noted to be standing and blood when found by her son at about 3 AM. There were small clots. Patient does have memory loss at baseline. Son reported she was dripping blood from her bottom onto the bathroom floor. She takes aspirin and Plavix at baseline but no other anticoagulation. Patient denied any symptoms. She recently was seen here with constipation and has been taking MiraLAX abnormal bowel movements. She has history of partial colectomy previously. Patient was not personally able to supply any history. She does have behavioral disturbances with her dementia at baseline. Vital signs on presentation showed a temperature of 98.1, heart rate 76, respirate 16, blood pressure 141/84 and pulse ox was 97% room air. CBC on presentation showed anemia with a hemoglobin of 10.7 but was relatively stable at that time. Coags were unremarkable. Chemistry panel was unremarkable. Chest x-ray showed a right upper lobe mass which was worrisome for malignancy and had been noted previously on CT and family had declined workup. She also has probable airspace opacities bilaterally at the bases right greater than left. With her hemoglobin initially being stable we admitted to the floor and watched serial hemoglobin on her. She did have another bloody bowel movement and her hemoglobin dropped 1 g so she was started on a bowel regimen for colonoscopy and GI was consulted. We also obtained a CT of her abdomen pelvis which suggested sleeping in her small bowel. She was taken for colonoscopy on 05/11/2024 at which time she was found to have a single solitary 12 mm ulcer in the rectum that was oozing and had stigmata of recent bleeding. Coagulation was used for hemostasis and heater probe was used successfully. To stop the bleeding 1 hemostatic clip was placed. Good hemostasis was noted at the end of the procedure. She was also found to have multiple small and large mouth diverticula in the entire colon. No repeat colonoscopy was recommended due to age. She was resumed on a regular diet and return to the medical floor. Hemoglobin remained stable. Plan is to hold her aspirin and Plavix for total of 7 days then restart on 05/20/2024. No follow-up is needed as long as her hemoglobin remained stable. If she does develop bleeding she will need an outpatient capsule endoscopy and follow-up with gastroenterology with referral from her primary care physician. I have asked that she follow-up with her primary care physician within the next week. Discharge diagnoses: Lower GI bleed secondary to rectal ulcer Colonic diverticulosis Acute on chronic anemia-stable Right upper lobe lung mass Dementia-suspect vascular with behavioral issues and agitation History of stroke Chronic hypotension History of DVT Hyperlipidemia GERD Severe malnutrition History of tobacco abuse Physical Exam Const alert and no apparent distress; Negative for oriented x3, average body habitus, healthy appearing or well nourished Constitutional Narrative: Elderly, white female, sitting up in bed, aide at bedside as a sitter, appears comfortable, nontoxic, patient has been calm and pleasantly confused this morning General Appearance: cooperative, comfortable, well kempt and well developed Orientation / Consciousness: confused Nutritional Appearance: cachectic HEENT normocephalic and head/scalp atraumatic HEENT Narrative: Temporal wasting bilaterally, mild hearing loss, Mallampati 1, no thrush Eyes EOMs intact bilaterally and conjunctivae normal Eyes Narrative: No scleral icterus Neck supple Neck Narrative: Trachea midline, no thyroid enlargement noted Resp normal respiratory effort, no retractions, no use of accessory muscles and clear to auscultation bilaterally Resp Narrative: Diminished but clear Auscultation: Negative for rales, rhonchi or wheezes Cardio regular rate, regular rhythm, S1 normal heart sound, S2 normal heart sound, no murmurs, no rub, no gallops and no clicks GI normal to inspection, nondistended, normoactive bowel sounds, soft to palpation and non-tender GI Narrative: Scaphoid abdomen Extremity no clubbing, cyanosis or edema Extremity Narrative: Decreased lean muscle mass Skin skin turgor normal, no jaundice, no petechiae and no mottling Skin Narrative: Mildly pale Neuro moves all extremities and no focal motor deficits Neuro Narrative: Strength is good Sensorium / Orientation: awake, alert and oriented to person; Negative for oriented to place or oriented to time Speech: speech normal Psych affect normal Psych Narrative: Pleasantly confused, impulsive Weight / BMI Weight Weight: 41.7 kg Body Mass Index (BMI) 16.9 ABG / Lab / Microbiology Data 05/12/24 12:30 05/12/24 05:49 Laboratory: Laboratory Results - last 24 hr 05/12/24 05:49: WBC 8.5, RBC 3.03 L, Hgb 8.7 L, Hct 26.7 L, MCV 88.1, MCH 28.7, MCHC 32.6, RDW Std Deviation 43.7, RDW Coeff of Devyn 13.5, Plt Count 359, MPV 9.2, Immature Gran % (Auto) 0.200, Neut % (Auto) 69.4, Lymph % (Auto) 16.7 L, Swisher % (Auto) 11.8 H, Eos % (Auto) 1.5, Baso % (Auto) 0.4, Absolute Neuts (auto) 5.9, Absolute Lymphs (auto) 1.41, Nucleated RBC % 0, Sodium 141, Potassium 3.5, Chloride Direct 106, Carbon Dioxide 21.5 L, Anion Gap 14, BUN 9, Creatinine 0.72, Estim Creat Clear Calc 33.23, Est GFR (MDRD) Non-Af 82, BUN/Creatinine Ratio 12.2, Glucose 99, Calcium 9.6 05/12/24 12:30: Hgb 9.4 L D/C Instructions Discharge Diet: No restrictions Discharge Activity: Return to Normal Activity DC O2, CPAP, BIPAP Needs Home O2 Discharge instructions: No Meaningful Use Info Meaningful Use Meaningful Use Diagnoses (Choose all that apply): None applicable Ischemic Stroke Statin Dosing Therapy Reference: STATIN DOSE THERAPY REFERENCE: * Patients > 75 years receive moderate or high dose statin therapy. * Patients 75 years or YOUNGER should receive HIGH intensity statin dose unless contraindicated. You will be required to document reason for non-treatment if statin daily dose does not meet guidelines. HIGH DOSE STATIN THERAPY DAILY Atorvastatin > than or = to 40 mg Rosuvastatin > than or = to 20 mg Amlodipine + Atorvastatin > than or = to 2.5/40 mg Ezetimibe + Simvastatin 10/80 mg Simvastatin 80mg Discharge Plan Admission Admit Date/Time: 05/10/24 08:36 Primary Reason for Your Visit: Rectal bleeding Attending Provider: Anne Mehta Primary Care Provider: Jennifer Klein Instructions Additional Instructions / Restrictions: 1. Plan is to hold aspirin and Plavix for total of 7 days and restart next 05/20/2024 Discharge Orders/Prescriptions Prescriptions: Continued AZO D-Mannose 500 mg capsule PO DAILY acetaminophen 500 mg Tablet 1,000 mg PO TID PRN (Reason: Pain 1-10 Or Fever) Qty: 0 0RF quetiapine [Seroquel] 25 mg tablet 12.5 mg PO DAILY atorvastatin 20 mg tablet 20 mg PO DAILY Qty: 90 3RF fludrocortisone 0.1 mg tablet 0.1 mg PO BREAKFAST Qty: 90 1RF midodrine 5 mg tablet 10 mg PO TIDCM Qty: 180 3RF potassium chloride 10 mEq tablet extended release 20 meq PO DAILY Qty: 180 1RF quetiapine 25 mg tablet 25 mg PO QHS Qty: 90 3RF Held aspirin 81 MG tablet,delayed release (DR/EC) 81 mg PO DAILY@0800 Hold Instructions: Resume on 05/20/24. clopidogrel [Plavix] 75 mg tablet 75 mg PO DAILY Qty: 90 3RF Hold Instructions: Resume on 05/20/24. escitalopram oxalate 10 mg tablet 10 mg PO DAILY Qty: 90 1RF Hold Instructions: Until instructed to restart Referrals / Follow Up: Jennifer Klein MD [Primary Care Provider] - In 1 Week Disposition Disposition (needs filled in before D/C Order can be placed): Home, Self Care Charges/Coding Visit Charges Inpatient E&M: 27831 Disch Hosp >30min
== END 2024-05-12 13:43 | disposition home or self-care (01) | DRG 393 ==
LOC: ED 09:03 → MS2 09:12 → MS3 05-11 17:31
PROVIDERS: Internal Medicine Gastroenterology; Admitting Provider Internal Medicine; Emergency Provider Emergency Medicine; PCP Internal Medicine; Visit Provider Internal Medicine
PROC: 0DJD8ZZ Inspection of Lower Intestinal Tract, Via Natural or Artificial Opening Endoscopic (ICD-10-PCS; CPT 45378; principal; 2024-05-11 15:25)
DX: K62.6 Ulcer of anus and rectum (principal); E43 Unspecified severe protein-calorie malnutrition; K57.31 Diverticulosis of large intestine without perforation or abscess with bleeding; F01.518 Vascular dementia, unspecified severity, with other behavioral disturbance; Z68.1 Body mass index [BMI] 19.9 or less, adult; J44.89 Other specified chronic obstructive pulmonary disease; D64.9 Anemia, unspecified; E78.5 Hyperlipidemia, unspecified; I95.89 Other hypotension; K21.9 Gastro-esophageal reflux disease without esophagitis; Z79.82 Long term (current) use of aspirin; Z87.891 Personal history of nicotine dependence; Z80.42 Family history of malignant neoplasm of prostate; Z86.718 Personal history of other venous thrombosis and embolism; Z86.16 Personal history of COVID-19; Z79.02 Long term (current) use of antithrombotics/antiplatelets; Z79.52 Long term (current) use of systemic steroids; Z86.73 Personal history of transient ischemic attack (TIA), and cerebral infarction without residual deficits; Z90.710 Acquired absence of both cervix and uterus; R91.8 Other nonspecific abnormal finding of lung field; Z90.49 Acquired absence of other specified parts of digestive tract
CPT/HCPCS: 36415; 71046; 74174; 80048; 80053; 83735; 84100; 85014; 85018; 85025; 85610; 85730; 86850; 86900; 86901; 97161; 97166; 99252; 99283; Q9967; A4216; G0463

== ENCOUNTER → 2024-05-14 | Outpatient (CLI) | payer MEDICARE, SELFPAY ==
--- NOTE | 2024-05-14 15:54 | CT_ITS ---
PROCEDURE: CHEST WITH CONTRAST REASON FOR EXAM: Lung mass. Back pain. TECHNIQUE: Chest CT with intravenous contrast. COMPARISON: Chest x-ray from 05/10/2024. CT chest from 01/08/2024. FINDINGS: There is redemonstration of a necrotic appearing irregular marginated mass likely relating to malignancy in the right upper lobe medially measuring approximately 4.6 x 3.9 x 3.7 cm in the CC, AP, and transverse dimensions respectively along the paramediastinal region and abuts the right aspect of the trachea. Mass is not significantly changed in size. Cardiac size is mildly enlarged. Thoracic aorta demonstrates normal caliber with mild atherosclerotic calcifications. There is mediastinal lymphadenopathy with a carinal node measuring approximately 2.1 x 1.8 cm. There are additional smaller mediastinal lymph nodes. No pericardial or pleural effusions identified. Evaluation of the lung parenchyma demonstrates emphysematous changes. Mild biapical scarring is present. Mild dependent atelectasis is present bilaterally. No pneumothorax or acute consolidation is present. Central airway is patent. Upper abdomen demonstrates no acute findings. Evaluation of the osseous structures demonstrates an old fracture deformity of the sternum and manubrium. There are mixed sclerotic and lytic lesions involving the thoracic spine relating to metastatic disease. There is a large lytic lesion involving the T3 vertebra. There are anterior wedge compression fractures of T4, T7. There is development of a Schmorl's node with sclerosis of the T10 vertebra. There is a sclerotic lesion which is new involving the T11 vertebral body likely related to metastatic disease. Additional sclerotic and lytic lesions are identified. There is a chronic compression fracture of L1. CT/Chest WITH Contrast IMPRESSION: 1. Redemonstration of a necrotic appearing irregular marginated mass likely rel ated to malignancy in the right upper lobe medially along the paramediastinal region and abuts the right aspect of the tra radha measuring 4.6 cm in the greatest dimension and is similar in size as compared to the prior CT exam from 01/08/2024. 2. Mediastinal lymphadenopathy likely relating to metastatic disease. 3. Lytic and sclerotic changes involving the thoracic spine likely relating to metastatic disease. There is interval development of compression fractures of T4 and T7. 4. Additional findings as above. One or more dose reduction techniques were used (e.g., Automated exposure contr ol, adjustment of the mA and/or kV according to patient size, use of iterative reconstruction technique). [facility]
== END | disposition home or self-care (01) ==
PROVIDERS: PCP Internal Medicine; Referring Provider Internal Medicine; Visit Provider Internal Medicine
DX: R91.8 Other nonspecific abnormal finding of lung field (principal)
CPT/HCPCS: 71260; Q9967

== ENCOUNTER → 2024-08-30 | Outpatient (CLI) | payer MEDICARE, SELFPAY ==
[2024-08-30 17:07] LABS: Mucous, Urine 0 SEEN /hpf (<or=2+); Red Blood Cells-Urine 0 SEEN /hpf (0-5); White Blood Cells 0 SEEN /hpf (0-5)
[2024-08-30 17:47] LABS: Color, Urine Yellow (Yellow); Glucose, Dipstick Normal (Normal); Ketone-Dipstick Negative (Negative); Leukocyte Esterase-Dipstick Negative /ul (Negative); Nitrite-Dipstick Positive (Negative); Occult Blood-Urine 10 /ul (Negative); Protein-Dipstick 30 mg/dl (Negative); Urine Bilirubin Dipstick Negative (Negative); Urine Clarity Clear (Clear); Urine Urobilinogen Normal (Normal)
[2024-08-30 18:06] LABS: Bacteria 2+ /hpf (None Seen); Squamous Epithelial Cells - UA 0-5 SEEN /hpf (5-10)
== END | disposition home or self-care (01) ==
LOC: LAB 17:01
PROVIDERS: PCP Internal Medicine; Referring Provider Internal Medicine; Visit Provider Internal Medicine
DX: N39.0 Urinary tract infection, site not specified (principal)
CPT/HCPCS: 81001; 87077; 87086; 87088; 87186

== ENCOUNTER → 2024-09-12 | Outpatient (CLI) | payer MEDICARE, SELFPAY ==
[2024-09-12 12:30] LABS: AST(SGOT) 51 U/L (<=31); Alanine Aminotransfer ALT/SGPT 26 U/L (<=34); Albumin, Serum 3.6 g/dL (3.4-4.8); Alkaline Phosphatase 1117 U/L (35-104); Anion Gap 16 (5-15); BUN 32 mg/dL (4-19); BUN/Creat Ratio 39.0 RATIO (10-20); Calcium,Total 8.9 mg/dL (7.6-11.0); Carbon Dioxide 18.8 mmol/L (21.0-32.0); Chloride 102 mmol/L (98-108); Globulin 2.5 g/dL (2.2-4.2); Glucose 120 mg/dL (70-99); Potassium 3.9 mmol/L (3.3-5.1)
== END | disposition home or self-care (01) ==
LOC: LAB 10:56
PROVIDERS: PCP Internal Medicine; Referring Provider Emergency Medicine; Visit Provider Emergency Medicine
DX: E87.6 Hypokalemia (principal)
CPT/HCPCS: 36415; 80053